=== PATIENT | female | born 1940 | race Caucasian/White ===

== ENCOUNTER 2017-01-20 10:28 | Emergency (ER) | payer MEDICARE ==
[~2017-01-20] VITALS: Ht 157.5 cm; Wt 69.0 kg
[2017-01-20] VITALS (7 sets, daily range): BP systolic 85–138; BP diastolic 56–71; PULSE 70–119; RESP 16–20; TEMP 98.2–98.9; O2SAT 93–98
[~2017-01-20 10:28] MED LIST: ASPI81CH CHEW; CLOP75TA PO; LISI-515 PO; SIMV40TA PO
[2017-01-20] MEDS ORDERED: [UNRECOGNIZED DRUG - CODE] (10:39)
--- NOTE | 2017-01-20 11:13 | PD ---
HPI Chief Complaint: Oral / Dental Pain or Problem Time Seen by Provider: 10:37 Travel History International Travel<30 days: No Contact w/Intl Traveler<30days: No Traveled to known affect area: No History of Present Illness HPI 76-year-old female presents with note of upper dental pain and swelling to her lower face after she had 5 teeth pulled on . She is to follow with her dentist on Sunday for recheck and supposed to keep her implant until then. She denies any fevers or other concurrent complaints. Her son notes that they paged her dentist but they hadn't heard back yet so they decided to come in here. She states the pain is worse if you touch the area. She denies other modifying factors. PFSH Past Medical History High Cholesterol: Yes Hypertension: Yes Past Surgical History Narrative Surgical patient notes dental surgery Social History Alcohol Use: No Tobacco Use: No Substance Use: No Allergies-Medications (Allergen,Severity, Reaction): Coded Allergies: No Known Allergies (Unverified , 01/20/17) Reported Meds & Prescriptions Reported Meds & Active Scripts Active Keflex (Cephalexin) 500 Mg Cap 500 Mg PO Q6H 7 Days Lisinopril 20 Mg Tab 20 Mg PO DAILY Simvastatin 40 Mg Tab 40 Mg PO HS Review of Systems Except as stated in HPI: all other systems reviewed are Neg Physical Exam Narrative GENERAL: Well-nourished, well-developed patient. SKIN: Warm and dry. HEAD: Patient has very small amount of swelling noted infraorbitally with old ecchymosis EYES: No injection or drainage. ENT: No nasal drainage noted. Denture noted to upper teeth the patient states she cannot remove which limits the exam NECK: Supple, trachea midline. CARDIOVASCULAR: Regular rate and rhythm RESPIRATORY: No increased effort. No accessory muscle use. NEUROLOGICAL: Awake and alert. Moves all extremities and sensory grossly within normal limits. Normal speech. Data Data Last Documented VS Vital Signs Date Time Temp Pulse Resp B/P (MAP) Pulse Ox O2 Delivery O2 Flow Rate FiO2 01/20/17 13:31 01/20/17 12:46 70 20 97 01/20/17 11:07 98.9 Room Air Orders Orders Vital Signs (01/20/17 10:51) Complete Blood Count With Diff (01/20/17 11:21) Comprehensive Metabolic Panel (01/20/17 11:21) Urinalysis - C+S If Indicated (01/20/17 11:21) Ecg Monitoring (01/20/17 11:21) Iv Access Insert/Monitor (01/20/17 11:21) Oximetry (01/20/17 11:21) Lactic Acid (01/20/17 11:21) Sodium Chlorid 0.9% 500 Ml Inj (Ns 500 M (01/20/17 11:30) Urine Culture (01/20/17 11:30) Sodium Chlor 0.9% 1000 Ml Inj (Ns 1000 M (01/20/17 12:15) Cefepime Inj (Maxipime Inj) (01/20/17 12:03) Blood Culture (01/20/17 12:08) Ed Discharge Order (01/20/17 13:19) Labs Laboratory Tests Test 01/20/17 11:30 01/20/17 11:40 Urine Collection Type CLEAN CATCH Urine Color YELLOW Urine Turbidity SLIGHT Urine pH 5.5 Urine Specific [place] 1.009 Urine Protein NEG mg/dL Urine Glucose (UA) NEG mg/dL Urine Ketones NEG mg/dL Urine Occult Blood NEG Urine Nitrite POS Urine Bilirubin NEG Urine Leukocyte Esterase MOD Urine RBC 0-3 /hpf Urine WBC 25-49 /hpf Urine WBC Clumps MOD Urine Squamous Epithelial Cells 6-8 /hpf Urine Renal Epithelial Cells 0-5 /hpf Urine Bacteria MANY /hpf Microscopic Urinalysis Comment CULTURE INDICATED Urine Collection Time 11:30 White Blood Count 11.3 TH/MM3 Red Blood Count 4.01 MIL/MM3 Hemoglobin 12.5 GM/DL Hematocrit 36.4 % Mean Corpuscular Volume 90.8 FL Mean Corpuscular Hemoglobin 31.2 PG Mean Corpuscular Hemoglobin Concent 34.4 % Red Cell Distribution Width 12.6 % Platelet Count 193 TH/MM3 Mean Platelet Volume 7.9 FL Neutrophils (%) (Auto) 73.6 % Lymphocytes (%) (Auto) 16.3 % Monocytes (%) (Auto) 8.8 % Eosinophils (%) (Auto) 0.7 % Basophils (%) (Auto) 0.6 % Neutrophils # (Auto) 8.3 TH/MM3 Lymphocytes # (Auto) 1.8 TH/MM3 Monocytes # (Auto) 1.0 TH/MM3 Eosinophils # (Auto) 0.1 TH/MM3 Basophils # (Auto) 0.1 TH/MM3 CBC Comment DIFF FINAL Differential Comment Blood Urea Nitrogen 30 MG/DL Creatinine 1.70 MG/DL Random Glucose 140 MG/DL Total Protein 7.5 GM/DL Albumin 3.8 GM/DL Calcium Level 9.1 MG/DL Alkaline Phosphatase 67 U/L Aspartate Amino Transf (AST/SGOT) 22 U/L Alanine Aminotransferase (ALT/SGPT) 14 U/L Total Bilirubin 0.8 MG/DL Sodium Level 139 MEQ/L Potassium Level 4.9 MEQ/L Chloride Level 105 MEQ/L Carbon Dioxide Level 26.1 MEQ/L Anion Gap 8 MEQ/L Estimat Glomerular Filtration Rate 29 ML/MIN Lactic Acid Level 1.3 mmol/L [facility] Medical Decision Making Medical Screen Exam Complete: Yes Emergency Medical Condition: Yes Medical Record Reviewed: Yes (past history confirmed) Interpretation(s) CBC & BMP Diagram 01/20/17 11:40 Total Protein 7.5, Albumin 3.8, Calcium Level 9.1, Alkaline Phosphatase 67, Aspartate Amino Transf (AST/SGOT) 22, Alanine Aminotransferase (ALT/SGPT) 14, Total Bilirubin 0.8 ua with uti Differential Diagnosis Postop pain, postop infection, gingivitis Narrative Course Will have nursing staff repeat vitals given she is tachycardic and her blood pressure is lower and she has no other signs of infection and exam is limited. Patient is wanting to go and try to touch base with her dentist as she doesn't want her implant removed Lengthy discussion with patient and son again as heart rate has improved but blood pressure is still low on recheck. We will check basic blood work and urinalysis to rule out concurrent process such as anemia or dehydration. Patient notes she last had her blood pressure checked on her lisinopril she thinks about last month with her primary and it was okay there. She denies any complaints other than her postop pain to her teeth and her son states she's just been acting a little bit off ever since she had the anxiety medication on . Lengthy discussion with patient and son again. Heart rate and blood pressure have improved after IV fluids. Lactate is normal. Patient has white count of 11.4 with UTI. Labs also show elevation in BUN and creatinine and son states that patient has history of renal insufficiency but does not know the number. I advised given her initial hypotension and tachycardia that she should stay in the hospital for IV fluid hydration and IV antibiotics but patient is adamant about leaving. I will provide her with cefepime IV 1 here and IV fluids and advised to return for hospitalization if she changes her mind. She understands the importance and risk involved his leaving and alternatives were offered. She is alert and oriented. Son at bedside Diagnosis Primary Impression: UTI (urinary tract infection) Qualified Codes: N39.0 - Urinary tract infection, site not specified Additional Impressions: Pain, dental Renal insufficiency Hypotension Qualified Codes: I95.9 - Hypotension, unspecified Patient Instructions: General Instructions Additional Instructions: return as needed, follow with primary and dentist sunday, hold blood pressure medication till follow up sunday, keep blood pressure log Med/Other Pt SpecificInfo: Prescription(s) given Scripts Cephalexin (Keflex) 500 Mg Cap 500 MG PO Q6H for Infection for 7 Days, #28 CAP 0 Refills Prov: Cori Celeste MD 01/20/17 Disposition: 01 DISCHARGE HOME Condition: Stable Cori Celeste MD Jan 20, 2017 11:13
[2017-01-20] MEDS ORDERED: SODIUM CHLORID 0.9% 500 ML INJ 500 ML IV ONE (11:30)
[2017-01-20 11:45] LABS: AUTOMATED NEUTROPHIL # 8.3 TH/MM3 (1.8-7.7); BASOPHIL # 0.1 TH/MM3 (0-0.2); BASOPHIL % 0.6 % (0.0-2.0); EOSINOPHIL # 0.1 TH/MM3 (0-0.4); EOSINOPHIL % 0.7 % (0.0-4.0); HEMATOCRIT 36.4 % (35.0-46.0); HEMO FLAGS DIFF FINAL; LYMPH % 16.3 % (9.0-44.0); LYMPHOCYTE # 1.8 TH/MM3 (1.0-4.8); MEAN CELL VOLUME 90.8 FL (80.0-100.0); MEAN CORPUSCULAR HEMOGLOBIN 31.2 PG (27.0-34.0); MEAN CORPUSCULAR HGB CONC 34.4 % (32.0-36.0); MONO % 8.8 % (0.0-8.0); NEUT % 73.6 % (16.0-70.0); PLATELET COUNT 193 TH/MM3 (150-450); RED BLOOD COUNT 4.01 MIL/MM3 (4.00-5.30); RED CELL DISTRIBUTION WIDTH 12.6 % (11.6-17.2); WHITE BLOOD COUNT 11.3 TH/MM3 (4.0-11.0)
[2017-01-20 11:46] LABS: BLOOD, URINE NEG (NEG); GLUCOSE,URINE NEG (NEG); KETONE, URINE NEG (NEG); NITRITE,URINE POS (NEG); PH, URINE 5.5 (5.0-8.5)
[2017-01-20 11:51] LABS: METHOD OF COLLECTION CLEAN CATCH; URINE COLOR YELLOW (YELLW/STRAW)
[2017-01-20 11:52] LABS: BACTERIA, URINE MANY /hpf; RBC, URINE 0-3 /hpf (0-3); RENAL EPITHELIAL CELLS 0-5 /hpf
[2017-01-20 11:53] LABS: COMMENT (UR) CULTURE INDICATED; CULTURE IF INDICATED CULTURE INDICATED
[2017-01-20 11:54] LABS: CHLORIDE 105 MEQ/L (98-107); POTASSIUM 4.9 MEQ/L (3.5-5.1); SODIUM (NA) 139 MEQ/L (136-145)
[2017-01-20 11:58] LABS: ANION GAP 8 MEQ/L (5-15); BICARBONATE 26.1 MEQ/L (21.0-32.0); BLOOD UREA NITROGEN 30 MG/DL (7-18)
[2017-01-20 12:01] LABS: ALT (GPT) 14 U/L (10-53); AST (GOT) 22 U/L (15-37); GLOMERULAR FILTRATION RATE 29 ML/MIN (>89)
[2017-01-20 12:02] LABS: TOTAL BILIRUBIN ADULT 0.8 MG/DL (0.2-1.0)
[2017-01-20] MEDS ORDERED: CEFEPIME INJ 2,000 MG in SODIUM CHLORIDE 0.9% INJ 100 ML IV STA (12:03)
[2017-01-20 12:04] LABS: ALKALINE PHOSPHATASE 67 U/L (45-117)
[2017-01-20] MEDS ORDERED: SODIUM CHLOR 0.9% 1000 ML INJ 1,000 ML IV ONE (12:15)
[2017-01-20] MEDS ORDERED: CEPH-460 PO (12:54)
[2017-01-29] MEDS ORDERED: LISI-515 PO (11:30)
[2017-01-29] MEDS ORDERED: ALEN1TAB48 PO (13:20)
[2017-01-29] MEDS ORDERED: PNEU13P IM (13:24)
[2017-01-30] MEDS ORDERED: SIMV40TA PO ×2 (11:38→11:39)
== END 2017-01-20 13:32 | disposition home or self-care (01) ==
LOC: PHEFT 10:28
DX: N39.0 Urinary tract infection, site not specified (principal); K08.89 Other specified disorders of teeth and supporting structures; N28.9 Disorder of kidney and ureter, unspecified; I95.9 Hypotension, unspecified; B96.20 Unspecified Escherichia coli [E. coli] as the cause of diseases classified elsewhere; R00.0 Tachycardia, unspecified; R22.0 Localized swelling, mass and lump, head; I10 Essential (primary) hypertension; E78.00 Pure hypercholesterolemia, unspecified; Z98.890 Other specified postprocedural states
CPT/HCPCS: 80053; 81001; 83605; 85025; 87040; 87077; 87086; 87186; 96361; 96365; 99284; J0692; J7030; J7040

== ENCOUNTER 2017-06-15 05:09 | Inpatient (IN) | payer MEDICARE ==
[2017-06-15] VITALS (22 sets, daily range): BP systolic 83–221; BP diastolic 66–120; PULSE 93–137; RESP 14–20; TEMP 97.8–98.7; O2SAT 90–100
[~2017-06-15] VITALS: Ht 160 cm; Wt 78.8 kg
[~2017-06-15 05:09] MED LIST changes: +ALEN1TAB48 PO; -ASPI81CH CHEW; +ASPI81CH6 CHEW; -CLOP75TA PO; -LISI-515 PO
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
[2017-06-15 05:35] LABS: AUTOMATED NEUTROPHIL # 12.5 TH/MM3 (1.8-7.7); BASOPHIL # 0.3 TH/MM3 (0-0.2); BASOPHIL % 2.1 % (0.0-2.0); HEMATOCRIT 44.2 % (35.0-46.0); HEMOGLOBIN 14.7 GM/DL (11.6-15.3); LYMPH % 9.9 % (9.0-44.0); LYMPHOCYTE # 1.5 TH/MM3 (1.0-4.8); MEAN CELL VOLUME 89.2 FL (80.0-100.0); MEAN CORPUSCULAR HEMOGLOBIN 29.6 PG (27.0-34.0); MEAN CORPUSCULAR HGB CONC 33.2 % (32.0-36.0); MEAN PLATELET VOLUME 8.2 FL (7.0-11.0); MONO % 8.4 % (0.0-8.0); MONOCYTE # 1.3 TH/MM3 (0-0.9); NEUT % 79.6 % (16.0-70.0); PLATELET COUNT 251 TH/MM3 (150-450); RED BLOOD COUNT 4.95 MIL/MM3 (4.00-5.30); RED CELL DISTRIBUTION WIDTH 12.1 % (11.6-17.2); WHITE BLOOD COUNT 15.6 TH/MM3 (4.0-11.0)
[2017-06-15 05:44] LABS: CHLORIDE 103 MEQ/L (98-107); SODIUM (NA) 137 MEQ/L (136-145)
[2017-06-15 05:45] LABS: BILIRUBIN, URINE NEG (NEG); BLOOD, URINE MOD (NEG); GLUCOSE,URINE NEG (NEG); KETONE, URINE 15 mg/dL (NEG); NITRITE,URINE NEG (NEG); URINE COLOR YELLOW (YELLW/STRAW); URINE LEUKOCYTE ESTERASE NEG (NEG)
[2017-06-15 05:47] LABS: CALCIUM 8.9 MG/DL (8.5-10.1)
[2017-06-15 05:48] LABS: ALBUMIN 3.6 GM/DL (3.4-5.0); BLOOD UREA NITROGEN 47 MG/DL (7-18); GLUCOSE,RANDOM 148 MG/DL (74-106)
[2017-06-15 05:51] LABS: ALT (GPT) 17 U/L (10-53); AST (GOT) 59 U/L (15-37); GLOMERULAR FILTRATION RATE 53 ML/MIN (>89)
[2017-06-15 05:52] LABS: HYALINE CAST, URINE 0-2 /lpf (RARE); WBC, URINE 0-2 /hpf (0-5)
[2017-06-15 05:52] LABS: TOTAL BILIRUBIN ADULT 1.2 MG/DL (0.2-1.0); TOTAL PROTEIN 7.9 GM/DL (6.4-8.2)
[2017-06-15 05:53] LABS: AMORPHOUS SEDIMENT, URINE FEW
[2017-06-15 05:53] LABS: LACTIC ACID SEPSIS PROTOCOL 2.4 mmol/L (0.4-2.0)
[2017-06-15 05:54] LABS: ALKALINE PHOSPHATASE 80 U/L (45-117); PROTHROMBIN TIME - PATIENT 10.5 SEC (9.8-11.6)
[2017-06-15 05:56] LABS: TROPONIN I LESS THAN 0.02 NG/ML (0.02-0.05)
[2017-06-15] MEDS ORDERED: SODIUM CHLORID 0.9% 500 ML INJ 500 ML IV ONE (06:00)
[2017-06-15 06:02] LABS: HYPERSEGMENTED POLYS 1+ (NORMAL)
[2017-06-15] MEDS: niCARdipine INJ 25 MG in SODIUM CHLOR 0.9% 250 ML INJ 240 ML IV PRN (06:15)
[2017-06-15] MEDS: SODIUM CHLOR 0.9% 1000 ML INJ 1,000 ML IV SCH (06:17)
--- NOTE | 2017-06-15 06:27 | HHI.HP ---
[facility] Service Critical Care Medicine Primary Care Physician Sandi John MD Admission Diagnosis Parenchymal Brain Hemorrhage Diagnosis: (1) Hemorrhagic stroke Diagnosis: Principal (2) Respiratory failure (3) Hypertensive urgency Diagnosis: Principal (4) Encephalopathy, metabolic Diagnosis: Principal (5) CLAYTON (acute kidney injury) Diagnosis: Secondary Chief Complaint: Confused. Back pain. Travel History International Travel<30 Days: No Contact w/Intl Traveler <30 Da: No Traveled to Known Affected Are: No History of Present Illness Severely dehydrated, elderly woman presents confused to [facility] ED with hypertensive urgency and semi-acute right hemispheric parenchymal brain hemorrhage. Arrived from [facility] on cardene gtt and aphasic. Handness not determined yet. Unable to get ROS. No anticoagulants. INR normal. Past Family Social History Allergies: Coded Allergies: No Known Allergies (Unverified Adverse Reaction, Unknown, 06/15/17) Past Medical History Past Medical History High Cholesterol: Yes Hypertension: Yes Social History Alcohol Use: No Tobacco Use: No Substance Use: No Allergies-Medications Allergies-Medications (Allergen,Severity, Reaction): Coded Allergies: No Known Allergies (Unverified Adverse Reaction, Unknown, 02/26/17) Reported Meds & Prescriptions Reported Meds & Active Scripts Active Simvastatin 40 Mg Tab 40 Mg PO HS Alendronate (Alendronate Sodium) 70 Mg Tab 70 Mg PO Q7D Reported Aspirin Low Dose (Aspirin) 81 Mg Chew 81 Mg CHEW DAILY Physical Exam Vital Signs Vital Signs Date Time Temp Pulse Resp B/P (MAP) Pulse Ox O2 Delivery O2 Flow Rate FiO2 06/15/17 05:35 98.7 94 20 210/116 (147) 98 Nasal Cannula 2.00 Physical Exam Gen: Aphasic. Head: Atraumatic, normal. Neck: Supple, airway widely patent. Lungs: Clear, no adventitious sounds. Heart: Sinus 90s. No JVD. RRR. Abdomen: Soft, nontender, no guarding. BS active. Extremities: Warm, well perfused. Neuro: Pupils 3 mm, reactive. Tracks with eyes, focuses. Aphasia (apparently was talking earlier). Moves right arm and leg to stimulation. Moves left leg weakly. Weak left arm. Laboratory Laboratory Tests Test 06/15/17 05:20 06/15/17 05:35 White Blood Count 15.6 Red Blood Count 4.95 Hemoglobin 14.7 Hematocrit 44.2 Mean Corpuscular Volume 89.2 Mean Corpuscular Hemoglobin 29.6 Mean Corpuscular Hemoglobin Concent 33.2 Red Cell Distribution Width 12.1 Platelet Count 251 Mean Platelet Volume 8.2 Neutrophils (%) (Auto) 79.6 Lymphocytes (%) (Auto) 9.9 Monocytes (%) (Auto) 8.4 Eosinophils (%) (Auto) 0.0 Basophils (%) (Auto) 2.1 Neutrophils # (Auto) 12.5 Lymphocytes # (Auto) 1.5 Monocytes # (Auto) 1.3 Eosinophils # (Auto) 0.0 Basophils # (Auto) 0.3 CBC Comment AUTO DIFF Hypersegmented Polys 1+ Platelet Estimate NORMAL Platelet Morphology Comment NORMAL Red Cell Morphology Comment NORMAL Blood Urea Nitrogen 47 Random Glucose 148 Albumin 3.6 Calcium Level 8.9 Sodium Level 137 Potassium Level 3.8 Chloride Level 103 Carbon Dioxide Level 25.0 Anion Gap 9 Lactic Acid Level 2.4 Ammonia LESS THAN 10 Urine Color YELLOW Urine Turbidity CLEAR Urine pH 6.0 Urine Specific [place] GREATER/EQUAL 1.030 Urine Protein 300 OR GREATER Urine Glucose (UA) NEG Urine Ketones 15 Urine Occult Blood MOD Urine Nitrite NEG Urine Bilirubin NEG Urine Urobilinogen 1.0 Urine Leukocyte Esterase NEG Urine RBC 3-5 Urine WBC 0-2 Urine Squamous Epithelial Cells 6-8 Urine Amorphous Sediment FEW Urine Bacteria NONE Urine Hyaline Casts 0-2 Urine Fine Granular Casts 0-2 Microscopic Urinalysis Comment CATH-CULT NOT IND Urine Barbiturates Screen NEG Urine Amphetamines Screen NEG Urine Benzodiazepines Screen NEG Urine Cocaine Screen NEG Urine Cannabinoids Screen NEG Date/Time Source Procedure Growth Status 06/15/17 05:26 Blood Peripheral Aerobic Blood Culture Pending Received 06/15/17 05:26 Blood Peripheral Anaerobic Blood Culture Pending Received Result Diagram: 06/15/17 0520 06/15/17 0520 Caprini VTE Risk Assessment Caprini VTE Risk Assessment: Mod/High Risk (score >= 2) Caprini Risk Assessment Model Point Value = 1 Point Value = 2 Point Value = 3 Point Value = 5 Age 41-60 Minor surgery BMI > 25 kg/m2 Swollen legs Varicose veins or History of unexplained or recurrent spontaneous Oral contraceptives or hormone replacement Sepsis (< 1 month) Serious lung disease, including pneumonia (< 1 month) Abnormal pulmonary function Acute myocardial infarction Congestive heart failure (< 1 month) History of inflammatory bowel disease Medical patient at bed rest Age 61-74 Arthroscopic surgery Major open surgery (> 45 min) Laparoscopic surgery (> 45 min) Malignancy Confined to bed (> 72 hours) Immobilizing plaster cast Central venous access Age >= 75 History of VTE Family history of VTE Factor V Leiden Prothrombin [id number] Lupus anticoagulant Anticardiolipin antibodies Elevated serum homocysteine Heparin-induced thrombocytopenia Other congenital or acquired thrombophilia Stroke (< 1 month) Elective arthroplasty Hip, pelvis, or leg fracture Acute spinal cord injury (< 1 month) Prophylaxis Regimen Total Risk Factor Score Risk Level Prophylaxis Regimen 0-1 Low Early ambulation 2 Moderate Order ONE of the following: *Sequential Compression Device (SCD) *Heparin 5000 units SQ BID 3-4 Higher Order ONE of the following medications: *Heparin 5000 units SQ TID *Enoxaparin/Lovenox 40 mg SQ daily (WT < 150 kg, CrCl > 30 mL/min) *Enoxaparin/Lovenox 30 mg SQ daily (WT < 150 kg, CrCl > 10-29 mL/min) *Enoxaparin/Lovenox 30 mg SQ BID (WT < 150 kg, CrCl > 30 mL/min) AND/OR *Sequential Compression Device (SCD) 5 or more Highest Order ONE of the following medications: *Heparin 5000 units SQ TID (Preferred with Epidurals) *Enoxaparin/Lovenox 40 mg SQ daily (WT < 150 kg, CrCl > 30 mL/min) *Enoxaparin/Lovenox 30 mg SQ daily (WT < 150 kg, CrCl > 10-29 mL/min) *Enoxaparin/Lovenox 30 mg SQ BID (WT < 150 kg, CrCl > 30 mL/min) AND *Sequential Compression Device (SCD) Assessment and Plan Problem List: (1) Hemorrhagic stroke ICD Code: I61.9 - Nontraumatic intracerebral hemorrhage, unspecified Status: Acute (2) Hypertensive urgency ICD Code: I16.0 - Hypertensive urgency Status: Acute (3) Encephalopathy, metabolic ICD Code: G93.41 - Metabolic encephalopathy Status: Acute (4) CLAYTON (acute kidney injury) ICD Code: N17.9 - Acute kidney failure, unspecified Status: Acute Assessment and Plan Plan: 1. Neuro checks. 2. Maintenance iv fluid, isotonic. 3. Cardene gtt to keep SBP < 160. 4. Swallow evaluation. 5. Pepcid. 6. No chemical DVT px. 7. SCDs. 8. MRI brain. Overall impression: Patient is critically ill with acute brain hemorrhage complicated by dehydration, rhabdomyolysis, and kidney injury. Hypertensive urgency persists. She is deteriorating rapidly and will soon require intubation and mechanical ventilation. Critical care 39 mins aside from procedures Problem Qualifiers (1) Respiratory failure: Qualified Codes: J96.00 - Acute respiratory failure, unspecified whether with hypoxia or hypercapnia Ulisses Gunter MD Jun 15, 2017 06:27
--- NOTE | 2017-06-15 06:28 | RADRPT ---
EXAM DATE/TIME: 06/15/2017 05:59 [facility] COMPARISON: No previous studies available for comparison. INDICATIONS : Altered mental status. RADIATION DOSE: 57.94 CTDIvol (mGy) MEDICAL HISTORY : Hypertension. SURGICAL HISTORY : None. ENCOUNTER: Initial ACUITY: 1 day PAIN SCALE: 0/10 LOCATION: cranial TECHNIQUE: Multiple contiguous axial images were obtained of the head. Using automated exposure control and adj ustment of the mA and/or kV according to patient size, radiation dose was kept as low as reasonably a chievable to obtain optimal diagnostic quality images. DICOM format image data is available electro nically for review and comparison. FINDINGS: CEREBRUM: 2.6 cm parenchymal hemorrhage in the posterior right temporal lobe with intra-ventricular extension. Large amount of blood in the ipsilateral right ventricle with small amount of dependent blood in the occipital horn of the left lateral ventricle. There appears to be a small subarachnoid component in t he parietal convexities bilaterally. Ventricles are prominent. Periventricular diminished attenuation characteristic of moderately severe small vessel ischemic demyelination. POSTERIOR FOSSA: The cerebellum and brainstem are intact. The 4th ventricle is midline. The cerebellopontine angle i s unremarkable. EXTRACRANIAL: The visualized portion of the orbits is intact. SKULL: The calvaria is intact. No evidence of skull fracture. CONCLUSION: 1. 2.6 cm parenchymal hemorrhage in the posterior right temporal lobe with intraventricular extension . 2. There appears to be a small subarachnoid component over both parietal convexities. 3. Ventricular prominence with periventricular diminished attenuation characteristic of moderately se macarena small vessel ischemic demyelination. No midline shift Ariel Frederick MD on June 15, 2017 at 6:22 Board Certified Radiologist. This report was verified electronically.
[2017-06-15] MEDS ORDERED: CHLORHEXIDINE GLUCONATE 2 % 1 PACK (2 CLOTHS) TOP PRN (06:30)
[2017-06-15] MEDS ORDERED: RESP: ALBUTEROL 2.5 MG/IPRATROPIUM 0.5 MG NEB (PRN) INH (06:30)
[2017-06-15] MEDS ORDERED: ONDANSETRON HCL 4 MG/2 ML VIAL IV PUSH PRN (06:30)
[2017-06-15] MEDS ORDERED: SENNOSIDES 8.6 MG TAB PO PRN (06:30)
[2017-06-15] MEDS ORDERED: BISACODYL 10 MG SUPP RECTAL PRN (06:30)
[2017-06-15] MEDS ORDERED: MISCELLANEOUS NURSING INFORMATION XX SCH (06:30)
[2017-06-15] MEDS ORDERED: levETIRAcetam INJ 100 ML IV ONE (06:30)
[2017-06-15] MEDS ORDERED: MAGNESIUM HYDROXIDE SUSP 30 ML CUP PO PRN (06:30)
--- NOTE | 2017-06-15 06:39 | RADRPT ---
EXAM DATE/TIME: 06/15/2017 06:15 [facility] COMPARISON: No previous studies available for comparison. INDICATIONS : Syncopal episode today MEDICAL HISTORY : Hypertension. SURGICAL HISTORY : None. ENCOUNTER: Initial ACUITY: 1 day PAIN SCORE: Non-responsive. LOCATION: Bilateral chest FINDINGS: A single view of the chest demonstrates the lungs to be symmetrically aerated with some linear specia l changes in the left perihilar distribution possibly representing some regional scarring/fibrosis. T he upper mediastinum is widened apparently due to some uncoiling of the thoracic aorta. Trachea remai ns midline. Heart size is borderline normal compensated. Osseous structures are intact. CONCLUSION: 1. Minimal left perihilar scarring/fibrosis. Lungs are otherwise clear. 2. Fullness of the upper mediastinum I believe is due to some uncoiling of the thoracic aorta. Trache a remains midline. 3. Borderline prominent but well compensated heart. Ariel Frederick MD on June 15, 2017 at 6:34 Board Certified Radiologist. This report was verified electronically.
[2017-06-15 07:18] LABS: ACETAMINOPHEN LESS THAN 2.0 MCG/ML (10.0-30.0)
[2017-06-15] MEDS: DOCUSATE SODIUM 50 MG/SENNA 8.6 MG TAB PO SCH ×2 (08:45→20:59)
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
[2017-06-15] MEDS: FAMOTIDINE 20 MG/2 ML VIAL IV PUSH SCH ×2 (09:43→20:59)
--- NOTE | 2017-06-15 13:38 | RADRPT ---
EXAM DATE/TIME: 06/15/2017 11:52 [facility] COMPARISON: CT BRAIN W/O CONTRAST, June 15, 2017, 5:59. INDICATIONS : Subarachnoid hemorrhage. MEDICAL HISTORY : Hypertension. CVA. SURGICAL HISTORY : None. ENCOUNTER: Initial ACUITY: 4-6 days PAIN SCORE: 0/10 LOCATION: cranial TECHNIQUE: Multiplanar, multisequence MRI of the brain was performed without contrast. FINDINGS: There is a large area of hemorrhage in the posterior right temporal lobe measuring up to about 6.2 x 3.6 cm. There is some rupture into ventricular system with hemorrhage in the posterior aspect of both lateral ventricles. On diffusion weighted images there is a rim of increased signal around the hemor rhage both parenchymal and intraventricular hemorrhage. Ventricular size is mildly enlarged and there is moderate chronic ischemic change in periventricular white matter. No contrast was given. Findings probably represents a large hemorrhagic infarct. CONCLUSION: 1. Large hemorrhage in the right posterior temporal lobe with rupture into the ventricular system and mild ventricular enlargement. Findings most characteristic of a hemorrhagic infarct. On followup exa m would recommend contrast to exclude an enhancing underlying lesion. 2. Moderate chronic ischemic changes in periventricular white matter. No significant midline shift. Ivan Bahena MD on June 15, 2017 at 13:29 Board Certified Radiologist. This report was verified electronically.
[2017-06-15] MEDS ORDERED: PROPOFOL 1000 MG/100 ML INJ 100 ML IV PRN (14:00)
[2017-06-15] MEDS ORDERED: ROCURONIUM INJ 100 MG/10 ML VIAL IV ONE (14:00)
[2017-06-15] MEDS ORDERED: MIDAZOLAM HCL 5 MG/5 ML VIAL IV PUSH ONE (14:00)
[2017-06-15] MEDS ORDERED: ROCURONIUM INJ 50 MG/5 ML VIAL ONE (14:07)
[2017-06-15] MEDS ORDERED: MIDAZOLAM HCL 5 MG/ML VIAL (1 ML) ONE (14:07)
--- NOTE | 2017-06-15 14:31 | PD.PROCEDR ---
Procedure Note Procedure DX: Respiratory Failure (J96.00) OP: Orotracheal Intubation (49728) Procedure: Time out. Bag mask assisted ventilation after versed 2.5 mg iv. Rocuronium 100 mg iv. Intubated orally with 8.0 cuffed tube. Position confirmed with CO2 detection, breath sounds, sats 100%. CXR ordered, will review. Ulisses Gunter MD Jun 15, 2017 14:31
--- NOTE | 2017-06-15 14:36 | EKG ---
Date Performed: 06/15/2017 Time Performed: 06:27:58 PTAGE: 77 years EKG: SUPRAVENTRICULAR RHYTHM MARKED LEFT AXIS DEVIATION NONSPECIFIC ST & T-WAVE ABNORMALITY ABNO RMAL ECG NO PREVIOUS TRACING Clinical correlation is recommended. DOCTOR: Jame Anna Interpretating Date/Time 06/15/2017 14:36:10
--- NOTE | 2017-06-15 14:42 | RADRPT ---
EXAM DATE/TIME: 06/15/2017 11:52 [facility] COMPARISON: No previous studies available for comparison. INDICATIONS : Altered mental status. Abnormal CT. MEDICAL HISTORY : CVA. SURGICAL HISTORY : None. ENCOUNTER: Initial ACUITY: 4-6 days PAIN SCORE: 0/10 LOCATION: cranial Please note a normal MRA of the brain does not entirely exclude the possibility of a small aneurysm, nor the possibility of distal intracranial vessel disease. TECHNIQUE: 3D time of flight MRA was performed. Source images, multiplanar STS MIP, and 3D volume MIP reconstru ctions were reviewed. FINDINGS: There is excellent visualization of the major intracranial arteries out to the second-order branch ve ssels. There is no evidence for aneurysm, vessel truncation or stenosis, and no evidence for vascula r malformation. CONCLUSION: MRA within normal limits. There is a parenchymal hemorrhage in the posterior right te mporal lobe with intraventricular extension. Ivan Bahena MD on June 15, 2017 at 14:38 Board Certified Radiologist. This report was verified electronically.
[2017-06-15] MEDS ORDERED: PROPOFOL 1000 MG/100 ML IV PRN (14:45)
[2017-06-15] MEDS ORDERED: RASS Change Order XX ONE (14:45)
--- NOTE | 2017-06-15 15:21 | PD.CONS ---
History of Present Illness Service Neurology Consult Requested By nsx Reason for Consult ich, weakness Primary Care Physician Sandi John MD History of Present Illness 77 [place] [facility] [place] bp 210[place]116 in [place]. found to have right hemispheric parenchymal brain hemorrhage. seen by nsx. placed on cardene gtt for bp control. No anticoagulants. INR normal. pt went down to mri today. upon coming back she became more lethargic. she was intubated. had versed 5mg, started on propofol gtt. had hypotension, started on pressor. then had ventric placed for icp monitoring. Unable to get ROS. medical hx per chart. Past Family Social History Allergies: Coded Allergies: No Known Allergies (Unverified Adverse Reaction, Unknown, 06/15/17) Past Medical History Past Medical History High Cholesterol: Yes Hypertension: Yes Social History Alcohol Use: No Tobacco Use: No Substance Use: No Allergies-Medications Allergies-Medications (Allergen,Severity, Reaction): Coded Allergies: No Known Allergies (Unverified Adverse Reaction, Unknown, 02/26/17) Reported Meds & Prescriptions Reported Meds & Active Scripts Active Simvastatin 40 Mg Tab 40 Mg PO HS Alendronate (Alendronate Sodium) 70 Mg Tab 70 Mg PO Q7D Reported Aspirin Low Dose (Aspirin) 81 Mg Chew 81 Mg CHEW DAILY Review of Systems All other ROS: Unable to obtain Past Family Social History Allergies: Coded Allergies: No Known Allergies (Unverified Adverse Reaction, Unknown, 06/15/17) Active Ordered Medications Current Medications Medications (Trade) Dose Ordered Sig/Jose Guadalupe Route Start Time Stop Time Status Last Admin (NS Flush) 2 ml UNSCH PRN IV FLUSH 06/15/17 05:15 Nicardipine HCl 25 mg/Sodium Chloride 250 ml @ 50 mls/hr TITRATE PRN IV 06/15/17 06:15 06/15/17 06:15 (Pravachol) 80 mg HS PO 06/15/17 21:00 Sodium Chloride 1,000 ml @ 40 mls/hr Q24H IV 06/15/17 06:17 (Tylenol) 650 mg Q6H PRN PO 06/15/17 06:30 (Morphine Inj) 2 mg Q2H PRN IV PUSH 06/15/17 06:30 (Pepcid Inj) 10 mg Q12HR IV PUSH 06/15/17 09:00 06/15/17 09:43 (Zofran Inj) 4 mg Q6H PRN IV PUSH 06/15/17 06:30 (Duoneb Neb) 1 ampule Q4HR NEB PRN INH 06/15/17 06:30 Miscellaneous Information 1 Q361D XX 06/15/17 06:30 (Chlorhexidine 2% Cloth) 3 pack Taper DAILY@04 TOP 06/16/17 04:00 06/12/18 03:59 (Chlorhexidine 2% Cloth) 3 pack UNSCH PRN TOP 06/15/17 06:30 (Fallon-Colace) 1 tab BID PO 06/15/17 09:00 (Milk Of Magnesia Liq) 30 ml Q12H PRN PO 06/15/17 06:30 (Senokot) 17.2 mg Q12H PRN PO 06/15/17 06:30 (Dulcolax Supp) 10 mg DAILY PRN RECTAL 06/15/17 06:30 (Lactulose Liq) 30 ml DAILY PRN PO 06/15/17 06:30 (Peridex 0.12% Liq) 15 ml BID@08,20 MT 06/15/17 20:00 Propofol 100 ml @ 1.941 mls/ hr TITRATE PRN IV 06/15/17 14:45 06/15/17 14:41 Exam I&O / VS 06/15/17 06/15/17 06/16/17 15:00 23:00 07:00 Intake Total 100 ml Output Total 750 ml Balance -650 ml Intake IV Total 100 ml Output Urine Total 750 ml Vital Signs Date Time Temp Pulse Resp B/P (MAP) Pulse Ox O2 Delivery O2 Flow Rate FiO2 06/15/17 12:00 101 06/15/17 12:00 97.9 101 20 149/98 (115) 96 06/15/17 10:00 106 06/15/17 08:00 101 06/15/17 08:00 97.9 101 20 128/69 (88) 97 06/15/17 06:52 98 16 174/102 (126) 98 Nasal Cannula 2.00 06/15/17 06:42 102 16 162/103 (122) 98 Nasal Cannula 2.00 06/15/17 06:39 101 16 162/103 (122) Nasal Cannula 2.00 06/15/17 06:35 100 16 102/73 (83) 98 06/15/17 06:32 98 83/71 (75) 98 06/15/17 06:30 98 Nasal Cannula 2.00 06/15/17 06:15 94 16 168/107 (127) 99 Nasal Cannula 2.00 06/15/17 06:15 168 06/15/17 05:45 93 16 200/118 (145) 06/15/17 05:35 98.7 94 20 210/116 (147) 98 Nasal Cannula 2.00 06/15/17 05:15 93 16 221/120 (153) 98 Nasal Cannula 2.00 06/15/17 05:15 94 16 93 06/15/17 05:11 98.7 98 16 210/116 (147) 93 Exam Comments intubated, on propofol gtt, had recent versed dose, no gaze deviation, ou 3mm sluggish, no blink to threat, face sym, limited ext movement, Review/Management Diagnosis/Plan: (1) Intracranial hemorrhage ICD Codes: I62.9 - Nontraumatic intracranial hemorrhage, unspecified Status: Acute Plan: rt o-p ich large spontaneous, likely hypertensive limited current exam due to events over the past few hours mra brain- nml mri brain images reviewed will follow with you (2) Encephalopathy, metabolic ICD Codes: G93.41 - Metabolic encephalopathy Status: Acute Plan: due to ich (3) Hypertensive emergency ICD Codes: I16.1 - Hypertensive emergency Status: Acute (4) CLAYTON (acute kidney injury) ICD Codes: N17.9 - Acute kidney failure, unspecified Status: Acute Jose Cruz Crowell MD Jun 15, 2017 15:21
--- NOTE | 2017-06-15 17:03 | PD.OP ---
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 CT and MRI show a hemorrhagic infarction with intraventricular hemorrhage and hydrocephalus. Her condition was getting progressively worse. Placement of a venriculostomy catheter was indicated as recommended by the [employer] [place] [employer] The [id number] details of the procedure, its indications, alternatives, risks and potential complications were fully discussed with the patients family. She fully understood. All questions were answered. No guarantees were given. The patient voiced requesting the procedure and provided informed consents. The patient familywas offered the alternative of not having aggressive management. DETAILS OF THE SURGICAL PROCEDURE The frontal area was shaved, prepped and draped in the usual sterile fashion. An entry point was selected 90 millimeters posterior to the supraorbital rim and 25 millimeters from the midline. The area was infiltrated with 1% lidocaine with epinephrine. A skin incision was made with a #15 blade down to the level of the periosteum. Using a twist drill, a kan hole was made. The dura was carefully opened with a brain needle and a ventriculostomy catheter was advanced into the ventricular system. At a depth of 60 millimeters, cerebrospinal fluid was obtained. Opening pressure was greater than 20 centimeters of water. A specimen of cerebrospinal fluid was collected and sent to the lab for analysis of the glucose, protein, cell count and cultures. The catheter was then tunneled under the galea and externalized through a separate stab incision. The incision was closed with 3-0 nylon in a single plane. The patient tolerated the procedure well. COMPLICATIONS There were no intraoperative complications. BLOOD LOSS Blood loss was minimal. Andre Nixon MD Jun 15, 2017 17:03
--- NOTE | 2017-06-15 18:38 | RADRPT ---
EXAM DATE/TIME: 06/15/2017 17:58 [facility] COMPARISON: CHEST SINGLE AP, June 15, 2017, 6:15. INDICATIONS : ET tube placement. MEDICAL HISTORY : None. SURGICAL HISTORY : None. ENCOUNTER: Initial ACUITY: 2 days PAIN SCORE: Non-responsive. LOCATION: Bilateral chest FINDINGS: Endotracheal tube tip is at or slightly below the [place]. There is complete consolidation of the left lung, new. Right lung remains clear. There is a new nasogastric tube, coiled in the stomach. CONCLUSION: Endotracheal tube tip slightly below the [place] in the right mainstem bronchus. Completely consolidat ed left lung. Harsha Ayala MD on June 15, 2017 at 18:34 Board Certified Radiologist. This report was verified electronically.
[2017-06-15] MEDS ORDERED: NOREPINEPHRINE INJ 4 MG in SODIUM CHLOR 0.9% 250 ML INJ 246 ML IV PRN ×2 (19:45→21:45)
[2017-06-15] MEDS: CHLORHEXIDINE 0.12% (ORAL KIT) 15 ML CUP MT SCH (20:57)
[2017-06-15] MEDS: PRAVASTATIN SOD 80 MG TAB PO SCH (20:59)
[2017-06-16] VITALS (16 sets, daily range): BP systolic 119–174; BP diastolic 69–95; PULSE 67–102; RESP 14–18; TEMP 98.2–101; O2SAT 97–100
[2017-06-16] MEDS: SODIUM CHLOR 0.9% 1000 ML INJ 1,000 ML IV SCH ×3 (02:15→22:22)
[2017-06-16] MEDS: CHLORHEXIDINE GLUCONATE 2 % 1 PACK (2 CLOTHS) TOP SCH (04:00)
[2017-06-16 04:51] LABS: AUTOMATED NEUTROPHIL # 13.4 TH/MM3 (1.8-7.7); BASOPHIL % 0.2 % (0.0-2.0); HEMOGLOBIN 13.7 GM/DL (11.6-15.3); LYMPH % 13.2 % (9.0-44.0); LYMPHOCYTE # 2.4 TH/MM3 (1.0-4.8); MEAN CELL VOLUME 89.3 FL (80.0-100.0); MEAN CORPUSCULAR HEMOGLOBIN 30.7 PG (27.0-34.0); MEAN CORPUSCULAR HGB CONC 34.4 % (32.0-36.0); MEAN PLATELET VOLUME 8.3 FL (7.0-11.0); MONO % 11.3 % (0.0-8.0); NEUT % 75.3 % (16.0-70.0); PLATELET COUNT 185 TH/MM3 (150-450); RED BLOOD COUNT 4.48 MIL/MM3 (4.00-5.30); RED CELL DISTRIBUTION WIDTH 13.1 % (11.6-17.2); WHITE BLOOD COUNT 17.8 TH/MM3 (4.0-11.0)
[2017-06-16 05:20] LABS: BICARBONATE 23.9 MEQ/L (21.0-32.0); CREATININE 1.1 MG/DL (0.50-1.00); MAGNESIUM 2.3 MG/DL (1.5-2.5); PHOSPHORUS 1.8 MG/DL (2.5-4.9)
[2017-06-16] MEDS: FAMOTIDINE 20 MG/2 ML VIAL IV PUSH SCH ×2 (09:39→23:40)
[2017-06-16] MEDS: DOCUSATE SODIUM 50 MG/SENNA 8.6 MG TAB PO SCH ×2 (09:39→23:40)
[2017-06-16] MEDS: CHLORHEXIDINE 0.12% (ORAL KIT) 15 ML CUP MT SCH ×2 (09:42→22:22)
--- NOTE | 2017-06-16 10:15 | HHI.PR ---
Review/Management Diagnosis/Plan: (1) Intracranial hemorrhage ICD Codes: I62.9 - Nontraumatic intracranial hemorrhage, unspecified Status: Acute Plan: rt o-p ich large spontaneous, likely hypertensive limited current exam due to events over the past few hours mra brain- nml mri brain images reviewed recs neuro exam improved extubate per ccm/nsx (2) Encephalopathy, metabolic ICD Codes: G93.41 - Metabolic encephalopathy Status: Acute Plan: due to ich (3) Hypertensive emergency ICD Codes: I16.1 - Hypertensive emergency Status: Acute Plan: improved on bp meds (4) CLAYTON (acute kidney injury) ICD Codes: N17.9 - Acute kidney failure, unspecified Status: Acute Subjective Subjective Comments No acute events reported icp 4-6 Active Medications Current Medications Medications (Trade) Dose Ordered Sig/Jose Guadalupe Route Start Time Stop Time Status Last Admin (NS Flush) 2 ml UNSCH PRN IV FLUSH 06/15/17 05:15 Nicardipine HCl 25 mg/Sodium Chloride 250 ml @ 50 mls/hr TITRATE PRN IV 06/15/17 06:15 06/15/17 06:15 (Pravachol) 80 mg HS PO 06/15/17 21:00 06/15/17 20:59 Sodium Chloride 1,000 ml @ 100 mls/hr Q10H IV 06/15/17 06:17 06/16/17 02:15 (Tylenol) 650 mg Q6H PRN PO 06/15/17 06:30 (Morphine Inj) 2 mg Q2H PRN IV PUSH 06/15/17 06:30 (Pepcid Inj) 10 mg Q12HR IV PUSH 06/15/17 09:00 06/16/17 09:39 (Zofran Inj) 4 mg Q6H PRN IV PUSH 06/15/17 06:30 (Duoneb Neb) 1 ampule Q4HR NEB PRN INH 06/15/17 06:30 Miscellaneous Information 1 Q361D XX 06/15/17 06:30 06/15/17 06:30 (Chlorhexidine 2% Cloth) 3 pack Taper DAILY@04 TOP 06/16/17 04:00 06/12/18 03:59 (Chlorhexidine 2% Cloth) 3 pack UNSCH PRN TOP 06/15/17 06:30 (Fallon-Colace) 1 tab BID PO 06/15/17 09:00 06/16/17 09:39 (Milk Of Magnesia Liq) 30 ml Q12H PRN PO 06/15/17 06:30 (Senokot) 17.2 mg Q12H PRN PO 06/15/17 06:30 (Dulcolax Supp) 10 mg DAILY PRN RECTAL 06/15/17 06:30 (Lactulose Liq) 30 ml DAILY PRN PO 06/15/17 06:30 (Peridex 0.12% Liq) 15 ml BID@08,20 MT 06/15/17 20:00 06/16/17 09:42 Propofol 100 ml @ 1.941 mls/ hr TITRATE PRN IV 06/15/17 14:45 06/15/17 14:41 Norepinephrine Bitartrate 4 mg/ Sodium Chloride 250 ml @ 7.5 mls/hr TITRATE PRN IV 06/15/17 21:45 06/15/17 19:00 Allergies Allergies Coded Allergies No Known Allergies (Unverified Adverse Reaction, Unknown, 06/15/17) Review of Systems All other ROS: Unable to obtain Exam I&O / VS Vital Signs Date Time Temp Pulse Resp B/P (MAP) Pulse Ox O2 Delivery O2 Flow Rate FiO2 06/16/17 08:36 99 50 06/16/17 08:36 99 Ventilator 40 06/16/17 06:00 92 06/16/17 04:08 100 50 06/16/17 04:00 76 06/16/17 04:00 99.4 76 14 119/69 (86) 97 06/16/17 02:00 77 06/16/17 00:00 100.0 79 14 137/85 (102) 100 06/16/17 00:00 79 06/15/17 23:26 100 50 06/15/17 22:00 100 06/15/17 21:00 134/81 06/15/17 20:15 144/87 06/15/17 20:00 98.2 106 14 136/93 (107) 100 06/15/17 20:00 Mechanical Ventilator 06/15/17 20:00 112 06/15/17 19:54 100 50 06/15/17 19:00 138/79 06/15/17 18:00 121 06/15/17 17:05 90 50 06/15/17 16:00 127 06/15/17 16:00 97.8 137 16 98/66 (77) 06/15/17 14:00 117 06/15/17 12:00 101 06/15/17 12:00 97.9 101 20 149/98 (115) 96 Exam Comments intubated, more alert, not following, ou 3mm sluggish, reduced blink to threat left hh, face sym, left hemiparesis leg weaker then arm; possible component of neglect and hemisensory loss Objective Micro and Labs Laboratory Tests Test 06/15/17 10:59 06/15/17 16:15 06/15/17 20:45 06/16/17 04:24 Lactic Acid Level 2.1 Blood Gas Puncture Site RT RADIAL Blood Gas Patient Temperature 98.6 Blood Gas HCO3 18 Blood Gas Base Excess -5.8 Blood Gas Oxygen Saturation 99 Arterial Blood pH 7.41 Arterial Blood Partial Pressure CO2 29 Arterial Blood Partial Pressure O2 506 Arterial Blood Oxygen Content 19.5 Arterial Blood Carboxyhemoglobin 0.6 Arterial Blood Methemoglobin 0.9 Blood Gas Hemoglobin 13.1 Oxygen Delivery Device VENTILATOR Blood Gas Ventilator Setting PRVC16/550/1.2/+8 Blood Gas Inspired Oxygen 100 Nasal Screen MRSA (PCR) MRSA NOT DETECTED White Blood Count 17.8 Red Blood Count 4.48 Hemoglobin 13.7 Hematocrit 40.0 Mean Corpuscular Volume 89.3 Mean Corpuscular Hemoglobin 30.7 Mean Corpuscular Hemoglobin Concent 34.4 Red Cell Distribution Width 13.1 Platelet Count 185 Mean Platelet Volume 8.3 Neutrophils (%) (Auto) 75.3 Lymphocytes (%) (Auto) 13.2 Monocytes (%) (Auto) 11.3 Eosinophils (%) (Auto) 0.0 Basophils (%) (Auto) 0.2 Neutrophils # (Auto) 13.4 Lymphocytes # (Auto) 2.4 Monocytes # (Auto) 2.0 Eosinophils # (Auto) 0.0 Basophils # (Auto) 0.0 CBC Comment DIFF FINAL Differential Comment Blood Urea Nitrogen 45 Creatinine 1.10 Random Glucose 141 Calcium Level 8.0 Phosphorus Level 1.8 Magnesium Level 2.3 Sodium Level 146 Potassium Level 3.8 Chloride Level 113 Carbon Dioxide Level 23.9 Anion Gap 9 Estimat Glomerular Filtration Rate 48 Date/Time Source Procedure Growth Status 06/15/17 05:26 Blood Peripheral Aerobic Blood Culture Pending Received 06/15/17 05:26 Blood Peripheral Anaerobic Blood Culture Pending Received 06/15/17 15:15 Cerebral Spinal Fluid Shunt Fluid Gram Stain - Final Resulted 06/15/17 15:15 Cerebral Spinal Fluid Shunt Fluid CSF Culture - Preliminary NO GROWTH IN 24 HOURS. Resulted Jose Cruz Crowell MD Jun 16, 2017 10:15
--- NOTE | 2017-06-16 10:26 | HHI.NSPN ---
(Bell Mooney) Note Status Status: Progress Note (Bell Mooney) Interval History Interval History 77 year old female with large hemorrhage stroke with hydrocephalus, worsening mental status, patient became severely obtunded difficult to arouse, she underwent placement of ventriculostomy drain 06/15/1706/16: ventriculostomy draining well, intubated, opening eyes and moving right side spontaneously. (Bell Mooney) Labs, Micro, & Vital Signs Results Date Time Temp Pulse Resp B/P (MAP) Pulse Ox O2 Delivery O2 Flow Rate FiO2 06/16/17 08:36 99 50 06/16/17 08:36 99 Ventilator 40 06/16/17 06:00 92 06/16/17 04:08 100 50 06/16/17 04:00 76 06/16/17 04:00 99.4 76 14 119/69 (86) 97 06/16/17 02:00 77 06/16/17 00:00 100.0 79 14 137/85 (102) 100 06/16/17 00:00 79 06/15/17 23:26 100 50 06/15/17 22:00 100 06/15/17 21:00 134/81 06/15/17 20:15 144/87 06/15/17 20:00 98.2 106 14 136/93 (107) 100 06/15/17 20:00 Mechanical Ventilator 06/15/17 20:00 112 06/15/17 19:54 100 50 06/15/17 19:00 138/79 06/15/17 18:00 121 06/15/17 17:05 90 50 06/15/17 16:00 127 06/15/17 16:00 97.8 137 16 98/66 (77) 06/15/17 14:00 117 06/15/17 12:00 101 06/15/17 12:00 97.9 101 20 149/98 (115) 96 Constitutional Vital Signs Date Time Temp Pulse Resp B/P (MAP) Pulse Ox O2 Delivery O2 Flow Rate FiO2 06/16/17 08:36 99 50 06/16/17 08:36 99 Ventilator 40 06/16/17 06:00 92 06/16/17 04:08 100 50 06/16/17 04:00 76 06/16/17 04:00 99.4 76 14 119/69 (86) 97 06/16/17 02:00 77 06/16/17 00:00 100.0 79 14 137/85 (102) 100 06/16/17 00:00 79 06/15/17 23:26 100 50 06/15/17 22:00 100 06/15/17 21:00 134/81 06/15/17 20:15 144/87 06/15/17 20:00 98.2 106 14 136/93 (107) 100 06/15/17 20:00 Mechanical Ventilator 06/15/17 20:00 112 06/15/17 19:54 100 50 06/15/17 19:00 138/79 06/15/17 18:00 121 06/15/17 17:05 90 50 06/15/17 16:00 127 06/15/17 16:00 97.8 137 16 98/66 (77) 06/15/17 14:00 117 06/15/17 12:00 101 06/15/17 12:00 97.9 101 20 149/98 (115) 96 (Bell Mooney) Physical Exam Gen: intubated, no acute distress HEENT:ventriculostomy drain in place at 5 cm H20, draining serousanguinous CSF well. pupils equal, nonicteric sclera. ET tube in place Neck: soft, supple Musculoskeletal: no obvious deformities. moves right side spontaneously, left dense paresis Heart: regular rate rhythm Resp: clear, mechanically vented Neuro: slightly opens eyes, does not follow commands. CN: pupils equal, exam limited due to clinical condition Cerebellar: cannot assess due to clinical status Skin: warm, dry (Bell Mooney) Gen: intubated, no acute distress HEENT:ventriculostomy drain in place at 5 cm H20, draining serousanguinous CSF well. pupils equal, nonicteric sclera. ET tube in place Neck: soft, supple Musculoskeletal: no obvious deformities. moves right side spontaneously, left dense paresis Heart: regular rate rhythm Resp: clear, mechanically vented Neuro: slightly opens eyes, does not follow commands. CN: pupils equal, exam limited due to clinical condition Cerebellar: cannot assess due to clinical status Skin: warm, dry (Andre Nixon MD) Medications Current Medications Current Medications Medications (Trade) Dose Ordered Sig/Jose Guadalupe Route PRN Reason Start Time Stop Time Status Last Admin Dose Admin Sodium Chloride (NS Flush) 2 ml UNSCH PRN IV FLUSH FLUSH AFTER USING IV ACCESS 06/15/17 05:15 Nicardipine HCl 25 mg/Sodium Chloride 250 ml @ 50 mls/hr TITRATE PRN IV Blood pressure management 06/15/17 06:15 06/15/17 06:15 Pravastatin Sodium (Pravachol) 80 mg HS PO 06/15/17 21:00 06/15/17 20:59 Sodium Chloride 1,000 ml @ 100 mls/hr Q10H IV 06/15/17 06:17 06/16/17 02:15 Acetaminophen (Tylenol) 650 mg Q6H PRN PO PAIN 1-10 AND/OR FEVER >101F 06/15/17 06:30 Morphine Sulfate (Morphine Inj) 2 mg Q2H PRN IV PUSH PAIN SCALE 6 TO 10 06/15/17 06:30 Famotidine (Pepcid Inj) 10 mg Q12HR IV PUSH 06/15/17 09:00 06/16/17 09:39 Ondansetron HCl (Zofran Inj) 4 mg Q6H PRN IV PUSH NAUSEA OR VOMITING 06/15/17 06:30 Albuterol/ Ipratropium (Duoneb Neb) 1 ampule Q4HR NEB PRN INH WHEEZING 06/15/17 06:30 Miscellaneous Information 1 Q361D XX 06/15/17 06:30 06/15/17 06:30 Chlorhexidine Gluconate (Chlorhexidine 2% Cloth) 3 pack Taper DAILY@04 TOP 06/16/17 04:00 06/12/18 03:59 Chlorhexidine Gluconate (Chlorhexidine 2% Cloth) 3 pack UNSCH PRN TOP HYGIENIC CARE 06/15/17 06:30 Senna/Docusate Sodium (Fallon-Colace) 1 tab BID PO 06/15/17 09:00 06/16/17 09:39 Magnesium Hydroxide (Milk Of Magnesia Liq) 30 ml Q12H PRN PO Mild constipation 06/15/17 06:30 Sennosides (Senokot) 17.2 mg Q12H PRN PO Moderate constipation 06/15/17 06:30 Bisacodyl (Dulcolax Supp) 10 mg DAILY PRN RECTAL SEVERE CONSITIPATION 06/15/17 06:30 Lactulose (Lactulose Liq) 30 ml DAILY PRN PO SEVERE CONSITIPATION 06/15/17 06:30 Chlorhexidine Gluconate (Peridex 0.12% Liq) 15 ml BID@08,20 MT 06/15/17 20:00 06/16/17 09:42 Propofol 100 ml @ 1.941 mls/ hr TITRATE PRN IV SEDATION 06/15/17 14:45 06/15/17 14:41 Norepinephrine Bitartrate 4 mg/ Sodium Chloride 250 ml @ 7.5 mls/hr TITRATE PRN IV Maintain MAP > 70 mmHg 06/15/17 21:45 06/15/17 19:00 (Bell Mooney) Medical Decision Making MDM Remarks 77 y/o female with large hemorrhagic stroke, she had evidence of hydrocephalus, she underwent placement of ventriculostomy drain 06/15/17 due to worsening mental status, appears improving (Bell Mooney) Plan Plan Remarks cont ventriculostomy draining at 5 cm H20, cont critical care nonchemical dvt prophylaxis in view of ICH serial neuro checks Neurologist following (Bell Mooney) Attending Statement As above. Continue ventriculostomy drainage of cerebrospinal fluid as well as intracranial pressure monitoring 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 Continue aggressive pulmonary toilette, nasotracheal suction, and breathing treatments with nebulizers. Daily PT and OT Nutrition. Tolerating Oral diet Renal. Continue to monitor closely urine output, BUN and creatinine Endocrine. Continue to Monitor serial Acu checks and SSI as needed in detail ID continue to monitor for signs of infection Continue Protonix for stress ulcer prophylaxis Continue Nickolas hose and SCD's for DVT prophylaxis Further recommendations will be provided depending on the patient's clinical evaluation and follow up studies. The exam, history, and the medical decision-making described in the above note were completed with the assistance of the mid-level provider. I reviewed and agree with the findings presented. I attest that I had a [id number] encounter with the patient on the same day, and personally performed and documented my assessment and findings in the medical record. (Andre Nixon MD) Bell Mooney Jun 16, 2017 10:26 Andre Nixon MD Jun 16, 2017 12:56
--- NOTE | 2017-06-16 12:39 | HHI.CCPN ---
Subjective Remarks/Hospital Course Admission Diagnosis Parenchymal Brain Hemorrhage Diagnosis: (1) Hemorrhagic stroke Diagnosis: Principal (2) Respiratory failure (3) Hypertensive urgency Diagnosis: Principal (4) Encephalopathy, metabolic Diagnosis: Principal (5) CLAYTON (acute kidney injury) Diagnosis: Secondary Severely dehydrated, elderly woman presents confused to [facility] ED with hypertensive urgency and semi-acute right hemispheric parenchymal brain hemorrhage. Arrived from [facility] on cardene gtt and aphasic. Handness not determined yet. Unable to get ROS. No anticoagulants. INR normal. 06/16: Flaccid left side. Minimal eye opening. Moves right arm and leg to stimulation. Breathes over vent. ICP control, EVD draining well. Objective Vital Signs Date Time Temp Pulse Resp B/P (MAP) Pulse Ox O2 Delivery O2 Flow Rate FiO2 06/16/17 11:45 100 40 06/16/17 08:36 Ventilator 06/16/17 06:00 92 06/16/17 04:00 99.4 14 119/69 (86) 06/15/17 06:52 2.00 Intake and Output 06/16/17 06/16/17 06/17/17 08:00 16:00 00:00 Output Total 425 ml Balance -425 ml Result Diagram: 06/16/17 0424 06/16/17 0424 Other Results Laboratory Tests Test 06/15/17 16:15 Blood Gas Puncture Site RT RADIAL Blood Gas Patient Temperature 98.6 Blood Gas HCO3 18 mmol/L (22-26) Blood Gas Base Excess -5.8 mmol/L (-2-2) Blood Gas Oxygen Saturation 99 % (90-100) Arterial Blood pH 7.41 (7.380-7.420) Arterial Blood Partial Pressure CO2 29 mmHg (38-42) Arterial Blood Partial Pressure O2 506 mmHg (61-120) Arterial Blood Oxygen Content 19.5 Vol % (12.0-20.0) Arterial Blood Carboxyhemoglobin 0.6 % (0-4) Arterial Blood Methemoglobin 0.9 % (0-2) Blood Gas Hemoglobin 13.1 G/DL (12.0-16.0) Oxygen Delivery Device VENTILATOR Blood Gas Ventilator Setting PRVC16/550/1.2/+8 Blood Gas Inspired Oxygen 100 % Objective Remarks Gen: Dense left sided deficit. Intubated, ventilated. Head: Atraumatic, normal. Neck: Supple, airway widely patent. Lungs: Clear, no adventitious sounds. Heart: Sinus 90s. No JVD. RRR. Abdomen: Soft, nontender, no guarding. BS active. Extremities: Warm, well perfused. Neuro: Pupils 2 mm, reactive. Opens eyes sporadically. Moves right arm and leg to stimulation. No movement left arm or leg. A/P Problem List: (1) Hemorrhagic stroke ICD Code: I61.9 - Nontraumatic intracerebral hemorrhage, unspecified Status: Acute (2) Hypertensive urgency ICD Code: I16.0 - Hypertensive urgency Status: Acute (3) Encephalopathy, metabolic ICD Code: G93.41 - Metabolic encephalopathy Status: Acute (4) CLAYTON (acute kidney injury) ICD Code: N17.9 - Acute kidney failure, unspecified Status: Acute Assessment and Plan Plan: 1. Neuro checks. 2. Maintenance iv fluid, isotonic. 3. Cardene gtt to keep SBP < 160. 4. Swallow evaluation. 5. Pepcid. 6. No chemical DVT px. 7. SCDs. 8. MRI brain. 9. PRVC vent mode 10. Repeat head CT a.m. Overall impression: Patient is critically ill with acute brain hemorrhage complicated by dehydration, rhabdomyolysis, kidney injury, and hypertensive urgency.. She was deteriorating rapidly and required intubation and mechanical ventilation. She remains critically ill and neurologically unstable. Prognosis guarded. Critical care 37 mins Ulisses Gunter MD Jun 16, 2017 12:39
[2017-06-16] MEDS: PRAVASTATIN SOD 80 MG TAB PO SCH (23:40)
[2017-06-16] MEDS: MORPHINE SULFATE 2 MG/ML SYRINGE IV PUSH PRN (23:41)
[2017-06-17] VITALS (17 sets, daily range): BP systolic 129–157; BP diastolic 60–93; PULSE 88–104; RESP 12–25; TEMP 98.4–99.6; O2SAT 97–100
[2017-06-17] MEDS: CHLORHEXIDINE GLUCONATE 2 % 1 PACK (2 CLOTHS) TOP SCH (04:00)
[2017-06-17] MEDS: niCARdipine INJ 25 MG in SODIUM CHLOR 0.9% 250 ML INJ 240 ML IV PRN (05:09)
[2017-06-17 05:57] LABS: BICARBONATE 22.4 MEQ/L (21.0-32.0); CALCIUM 7.6 MG/DL (8.5-10.1); CREATININE 0.88 MG/DL (0.50-1.00)
[2017-06-17] MEDS: SODIUM CHLOR 0.9% 1000 ML INJ 1,000 ML IV SCH (07:29)
[2017-06-17] MEDS: CHLORHEXIDINE 0.12% (ORAL KIT) 15 ML CUP MT SCH ×2 (08:00→20:00)
[2017-06-17 08:47] LABS: AUTOMATED NEUTROPHIL # 12.6 TH/MM3 (1.8-7.7); BASOPHIL % 0.2 % (0.0-2.0); EOSINOPHIL % 0.1 % (0.0-4.0); HEMATOCRIT 38.2 % (35.0-46.0); HEMOGLOBIN 12.8 GM/DL (11.6-15.3); LYMPHOCYTE # 1.8 TH/MM3 (1.0-4.8); MEAN CELL VOLUME 88.7 FL (80.0-100.0); MEAN CORPUSCULAR HEMOGLOBIN 29.8 PG (27.0-34.0); MEAN CORPUSCULAR HGB CONC 33.6 % (32.0-36.0); MEAN PLATELET VOLUME 9.2 FL (7.0-11.0); MONO % 10.9 % (0.0-8.0); MONOCYTE # 1.8 TH/MM3 (0-0.9); NEUT % 77.8 % (16.0-70.0); PLATELET COUNT 147 TH/MM3 (150-450); RED CELL DISTRIBUTION WIDTH 12.8 % (11.6-17.2); WHITE BLOOD COUNT 16.1 TH/MM3 (4.0-11.0)
[2017-06-17] MEDS: DOCUSATE SODIUM 50 MG/SENNA 8.6 MG TAB PO SCH ×2 (10:15→23:23)
[2017-06-17] MEDS: FAMOTIDINE 20 MG/2 ML VIAL IV PUSH SCH ×2 (10:17→23:23)
--- NOTE | 2017-06-17 11:19 | HHI.PR ---
Review/Management Diagnosis/Plan: (1) Intracranial hemorrhage ICD Codes: I62.9 - Nontraumatic intracranial hemorrhage, unspecified Status: Acute Plan: rt o-p ich large spontaneous, likely hypertensive limited current exam due to events over the past few hours mra brain- nml mri brain images reviewed recs neuro exam improved; follows, looks comfortable will add keppra prophylaxis; also in light of sudden decompensation check lipid panel; will look at reducing dose of statin based on results extubate per ccm/nsx (2) Encephalopathy, metabolic ICD Codes: G93.41 - Metabolic encephalopathy Status: Acute Plan: due to ich (3) Hypertensive emergency ICD Codes: I16.1 - Hypertensive emergency Status: Acute Plan: improved on bp meds (4) CLAYTON (acute kidney injury) ICD Codes: N17.9 - Acute kidney failure, unspecified Status: Acute Subjective Subjective Comments No acute events reported No headache No chest pain No dyspnea Active Medications Current Medications Medications (Trade) Dose Ordered Sig/Jose Guadalupe Route Start Time Stop Time Status Last Admin (NS Flush) 2 ml UNSCH PRN IV FLUSH 06/15/17 05:15 Nicardipine HCl 25 mg/Sodium Chloride 250 ml @ 50 mls/hr TITRATE PRN IV 06/15/17 06:15 06/17/17 05:09 (Pravachol) 80 mg HS PO 06/15/17 21:00 06/16/17 23:40 Sodium Chloride 1,000 ml @ 100 mls/hr Q10H IV 06/15/17 06:17 06/17/17 07:29 (Tylenol) 650 mg Q6H PRN PO 06/15/17 06:30 (Morphine Inj) 2 mg Q2H PRN IV PUSH 06/15/17 06:30 06/16/17 23:41 (Pepcid Inj) 10 mg Q12HR IV PUSH 06/15/17 09:00 06/17/17 10:17 (Zofran Inj) 4 mg Q6H PRN IV PUSH 06/15/17 06:30 (Duoneb Neb) 1 ampule Q4HR NEB PRN INH 06/15/17 06:30 Miscellaneous Information 1 Q361D XX 06/15/17 06:30 06/15/17 06:30 (Chlorhexidine 2% Cloth) 3 pack Taper DAILY@04 TOP 06/16/17 04:00 3/13/19 03:59 (Chlorhexidine 2% Cloth) 3 pack UNSCH PRN TOP 06/15/17 06:30 (Fallon-Colace) 1 tab BID PO 06/15/17 09:00 06/17/17 10:15 (Milk Of Magnesia Liq) 30 ml Q12H PRN PO 06/15/17 06:30 (Senokot) 17.2 mg Q12H PRN PO 06/15/17 06:30 (Dulcolax Supp) 10 mg DAILY PRN RECTAL 06/15/17 06:30 (Lactulose Liq) 30 ml DAILY PRN PO 06/15/17 06:30 (Peridex 0.12% Liq) 15 ml BID@08,20 MT 06/15/17 20:00 06/17/17 08:00 Propofol 100 ml @ 1.941 mls/ hr TITRATE PRN IV 06/15/17 14:45 06/15/17 14:41 Norepinephrine Bitartrate 4 mg/ Sodium Chloride 250 ml @ 7.5 mls/hr TITRATE PRN IV 06/15/17 21:45 06/15/17 19:00 Allergies Allergies Coded Allergies No Known Allergies (Unverified Adverse Reaction, Unknown, 06/15/17) Review of Systems All other ROS: Unable to obtain Exam I&O / VS Vital Signs Date Time Temp Pulse Resp B/P (MAP) Pulse Ox O2 Delivery O2 Flow Rate FiO2 06/17/17 08:55 100 Ventilator 40 06/17/17 08:55 100 40 06/17/17 08:55 40 06/17/17 06:30 102 132/73 06/17/17 06:00 100 06/17/17 05:15 97 40 06/17/17 05:09 97 177/101 06/17/17 04:00 99.5 100 14 157/93 (114) 99 06/17/17 04:00 100 06/17/17 04:00 40 06/17/17 02:00 97 06/17/17 01:22 97 40 06/17/17 00:00 104 06/17/17 00:00 40 06/17/17 00:00 99.2 104 14 129/83 (98) 97 06/16/17 22:00 98 06/16/17 20:20 99 40 06/16/17 20:00 Mechanical Ventilator 06/16/17 20:00 102 06/16/17 20:00 40 06/16/17 20:00 98.9 101 18 164/95 (118) 97 06/16/17 18:00 102 06/16/17 18:00 100 40 06/16/17 16:00 67 06/16/17 16:00 98.2 67 14 174/83 (113) 99 06/16/17 14:00 94 06/16/17 12:00 98 06/16/17 12:00 100.1 98 14 137/78 (97) 99 06/16/17 11:45 100 40 Exam Comments intubated, more alert, following, ou 3mm sluggish, reduced blink to threat left hh, face sym, left hemiparesis leg weaker then arm 3/5 able to cat scan tech with both ue; possible component of neglect and hemisensory loss Objective Micro and Labs Laboratory Tests Test 06/17/17 05:10 06/17/17 06:30 Blood Urea Nitrogen 36 Creatinine 0.88 Random Glucose 127 Calcium Level 7.6 Sodium Level 151 Potassium Level 3.4 Chloride Level 118 Carbon Dioxide Level 22.4 Anion Gap 11 Estimat Glomerular Filtration Rate 62 White Blood Count 16.1 Red Blood Count 4.30 Hemoglobin 12.8 Hematocrit 38.2 Mean Corpuscular Volume 88.7 Mean Corpuscular Hemoglobin 29.8 Mean Corpuscular Hemoglobin Concent 33.6 Red Cell Distribution Width 12.8 Platelet Count 147 Mean Platelet Volume 9.2 Neutrophils (%) (Auto) 77.8 Lymphocytes (%) (Auto) 11.0 Monocytes (%) (Auto) 10.9 Eosinophils (%) (Auto) 0.1 Basophils (%) (Auto) 0.2 Neutrophils # (Auto) 12.6 Lymphocytes # (Auto) 1.8 Monocytes # (Auto) 1.8 Eosinophils # (Auto) 0.0 Basophils # (Auto) 0.0 CBC Comment DIFF FINAL Differential Comment Date/Time Source Procedure Growth Status 06/15/17 05:26 Blood Peripheral Aerobic Blood Culture - Preliminary NO GROWTH IN 2 DAYS Resulted 06/15/17 05:26 Blood Peripheral Anaerobic Blood Culture - Preliminary NO GROWTH IN 2 DAYS Resulted 06/15/17 15:15 Cerebral Spinal Fluid Shunt Fluid Gram Stain - Final Resulted 06/15/17 15:15 Cerebral Spinal Fluid Shunt Fluid CSF Culture - Preliminary NO GROWTH IN 24 HOURS. Resulted Jose Cruz Crowell MD Jun 17, 2017 11:19
--- NOTE | 2017-06-17 12:42 | HHI.CCPN ---
Subjective Remarks/Hospital Course Admission Diagnosis Parenchymal Brain Hemorrhage Diagnosis: (1) Hemorrhagic stroke Diagnosis: Principal (2) Respiratory failure (3) Hypertensive urgency Diagnosis: Principal (4) Encephalopathy, metabolic Diagnosis: Principal (5) CLAYTON (acute kidney injury) Diagnosis: Secondary Severely dehydrated, elderly woman presents confused to [facility] ED with hypertensive urgency and semi-acute right hemispheric parenchymal brain hemorrhage. Arrived from [facility] on cardene gtt and aphasic. Handness not determined yet. Unable to get ROS. No anticoagulants. INR normal. 06/16: Flaccid left side. Minimal eye opening. Moves right arm and leg to stimulation. Breathes over vent. ICP control, EVD draining well. 06/17: Moving both arms, right much stronger. More alert but episodic apnea spells. Objective Vital Signs Date Time Temp Pulse Resp B/P (MAP) Pulse Ox O2 Delivery O2 Flow Rate FiO2 06/17/17 10:00 98 06/17/17 08:55 100 Ventilator 40 06/17/17 08:00 99.3 14 144/84 (104) 06/15/17 06:52 2.00 Intake and Output 06/17/17 06/17/17 06/18/17 08:00 16:00 00:00 Output Total 535 ml Balance -535 ml Result Diagram: 06/17/17 0630 06/17/17 0510 Objective Remarks Gen: Dense left sided deficit. Intubated, ventilated. Head: Atraumatic, normal. Neck: Supple, airway widely patent. Lungs: Clear, no adventitious sounds. Heart: Sinus 90s. No JVD. RRR. Abdomen: Soft, nontender, no guarding. BS active. Extremities: Warm, well perfused. Neuro: Pupils 2 mm, reactive. Opens eyes sporadically. Moves right arm and leg to stimulation. Moves left arm to stimulation 3/5 power. No hand grasp A/P Problem List: (1) Hemorrhagic stroke ICD Code: I61.9 - Nontraumatic intracerebral hemorrhage, unspecified Status: Acute (2) Hypertensive urgency ICD Code: I16.0 - Hypertensive urgency Status: Acute (3) Encephalopathy, metabolic ICD Code: G93.41 - Metabolic encephalopathy Status: Acute (4) CLAYTON (acute kidney injury) ICD Code: N17.9 - Acute kidney failure, unspecified Status: Acute Assessment and Plan Plan: 1. Neuro checks. 2. Maintenance iv fluid, isotonic. 3. Cardene gtt to keep SBP < 160. 4. Swallow evaluation. 5. Pepcid. 6. No chemical DVT px. 7. SCDs. 8. MRI brain. 9. PRVC vent mode 10. Start SBTs. 11. FU CT Head Overall impression: Patient is critically ill with acute brain hemorrhage complicated by dehydration, rhabdomyolysis, kidney injury, and hypertensive urgency. Initially was deteriorating rapidly and required intubation and mechanical ventilation. She remains critically ill and neurologically unstable, unable to wean from ventilator. Prognosis guarded. Critical care 36 mins Ulisses Gunter MD Jun 17, 2017 12:42
[2017-06-17 12:43] LABS: CHOLESTEROL/ HDL RATIO 3.04 RATIO
[2017-06-17] MEDS ORDERED: POTASSIUM CHLORIDE INJ 20 MEQ in LACTATED RINGER'S 1000 ML INJ 1,000 ML IV SCH (12:45)
[2017-06-17] MEDS: levETIRAcetam 500 MG TAB PO SCH ×2 (12:57→23:22)
[2017-06-17] MEDS: POTASSIUM CHLORIDE IV SCH (13:15)
[2017-06-17] MEDS: LACTATED RINGER S IV SCH (13:15)
--- NOTE | 2017-06-17 15:57 | HHI.NSPN ---
Note Status Status: Progress Note Interval History Interval History 77 year old female with large hemorrhage stroke with hydrocephalus, worsening mental status, patient became severely obtunded difficult to arouse, she underwent placement of ventriculostomy drain 06/15/1706/16: ventriculostomy draining well, intubated, opening eyes and moving right side spontaneously. 06/17. Neurologically stable. open eyes. Stable left hemiparesis Labs, Micro, & Vital Signs Results Date Time Temp Pulse Resp B/P (MAP) Pulse Ox O2 Delivery O2 Flow Rate FiO2 06/17/17 14:00 102 06/17/17 12:00 99.1 101 12 145/72 (96) 98 06/17/17 12:00 101 06/17/17 12:00 40 06/17/17 10:00 98 06/17/17 08:55 100 Ventilator 40 06/17/17 08:55 100 40 06/17/17 08:55 40 06/17/17 08:00 98 06/17/17 08:00 99.3 100 14 144/84 (104) 100 06/17/17 08:00 40 06/17/17 07:00 100 Mechanical Ventilator 50 06/17/17 06:30 102 132/73 06/17/17 06:00 100 06/17/17 05:15 97 40 06/17/17 05:09 97 177/101 06/17/17 04:00 99.5 100 14 157/93 (114) 99 06/17/17 04:00 100 06/17/17 04:00 40 06/17/17 02:00 97 06/17/17 01:22 97 40 06/17/17 00:00 104 06/17/17 00:00 40 06/17/17 00:00 99.2 104 14 129/83 (98) 97 06/16/17 22:00 98 06/16/17 20:20 99 40 06/16/17 20:00 Mechanical Ventilator 06/16/17 20:00 102 06/16/17 20:00 40 06/16/17 20:00 98.9 101 18 164/95 (118) 97 06/16/17 18:00 102 06/16/17 18:00 100 40 06/16/17 16:00 67 06/16/17 16:00 98.2 67 14 174/83 (113) 99 Constitutional Vital Signs Date Time Temp Pulse Resp B/P (MAP) Pulse Ox O2 Delivery O2 Flow Rate FiO2 06/17/17 14:00 102 06/17/17 12:00 99.1 101 12 145/72 (96) 98 06/17/17 12:00 101 06/17/17 12:00 40 06/17/17 10:00 98 06/17/17 08:55 100 Ventilator 40 06/17/17 08:55 100 40 06/17/17 08:55 40 06/17/17 08:00 98 06/17/17 08:00 99.3 100 14 144/84 (104) 100 06/17/17 08:00 40 06/17/17 07:00 100 Mechanical Ventilator 50 06/17/17 06:30 102 132/73 06/17/17 06:00 100 06/17/17 05:15 97 40 06/17/17 05:09 97 177/101 06/17/17 04:00 99.5 100 14 157/93 (114) 99 06/17/17 04:00 100 06/17/17 04:00 40 06/17/17 02:00 97 06/17/17 01:22 97 40 06/17/17 00:00 104 06/17/17 00:00 40 06/17/17 00:00 99.2 104 14 129/83 (98) 97 06/16/17 22:00 98 06/16/17 20:20 99 40 06/16/17 20:00 Mechanical Ventilator 06/16/17 20:00 102 06/16/17 20:00 40 06/16/17 20:00 98.9 101 18 164/95 (118) 97 06/16/17 18:00 102 06/16/17 18:00 100 40 06/16/17 16:00 67 06/16/17 16:00 98.2 67 14 174/83 (113) 99 Physical Exam Gen: intubated, no acute distress HEENT:ventriculostomy drain in place at 5 cm H20, draining serousanguinous CSF well. pupils equal, nonicteric sclera. ET tube in place Neck: soft, supple Musculoskeletal: no obvious deformities. moves right side spontaneously, left dense paresis Heart: regular rate rhythm Resp: clear, mechanically vented Neuro: slightly opens eyes, does not follow commands. CN: pupils equal, exam limited due to clinical condition Cerebellar: cannot assess due to clinical status Skin: warm, dry Medications Current Medications Current Medications Sodium Chloride (NS Flush) 2 ml UNSCH PRN IV FLUSH FLUSH AFTER USING IV ACCESS ; Start 06/15/17 at 05:15 Sodium Chloride 500 ml @ 500 mls/hr BOLUS ONCE IV ; Start 06/15/17 at 06:00; Stop 06/15/17 at 06:59; Status DC Nicardipine HCl 25 mg/Sodium Chloride 250 ml @ 50 mls/hr TITRATE PRN IV Blood pressure management Last administered on 06/17/17at 05:09; Start 06/15/17 at 06: 15 Pravastatin Sodium (Pravachol) 80 mg HS PO Last administered on 06/16/17at 23:40 ; Start 06/15/17 at 21:00 Levetriacetam 100 ml @ 400 mls/hr BOLUS ONCE IV Last administered on at 09:43; Start 06/15/17 at 06:30; Stop 06/15/17 at 06:44; Status DC Sodium Chloride 1,000 ml @ 100 mls/hr Q10H IV Last administered on 06/17/17at 07:29; Start 06/15/17 at 06:17; Stop 06/17/17 at 12:42; Status DC Acetaminophen (Tylenol) 650 mg Q6H PRN PO PAIN 1-10 AND/OR FEVER >101F; Start 06/15/17 at 06:30 Morphine Sulfate (Morphine Inj) 2 mg Q2H PRN IV PUSH PAIN SCALE 6 TO 10 Last administered on 06/16/17at 23:41; Start 06/15/17 at 06:30 Famotidine (Pepcid Inj) 10 mg Q12HR IV PUSH Last administered on 06/17/17at 10: 17; Start 06/15/17 at 09:00 Ondansetron HCl (Zofran Inj) 4 mg Q6H PRN IV PUSH NAUSEA OR VOMITING; Start at 06:30 Albuterol/ Ipratropium (Duoneb Neb) 1 ampule Q4HR NEB PRN INH WHEEZING; Start 06/15/17 at 06:30 Miscellaneous Information 1 Q361D XX Last administered on 06/15/17at 06:30; Start 06/15/17 at 06:30 Chlorhexidine Gluconate (Chlorhexidine 2% Cloth) 3 pack Taper DAILY@04 TOP ; Start 06/16/17 at 04:00; Stop 06/12/18 at 03:59 Chlorhexidine Gluconate (Chlorhexidine 2% Cloth) 3 pack UNSCH PRN TOP HYGIENIC CARE; Start 06/15/17 at 06:30 Senna/Docusate Sodium ([place]-Colace) 1 tab BID PO Last administered on at 10:15; Start 06/15/17 at 09:00 Magnesium Hydroxide (Milk Of Magnesia Liq) 30 ml Q12H PRN PO Mild constipation ; Start 06/15/17 at 06:30 Sennosides (Senokot) 17.2 mg Q12H PRN PO Moderate constipation; Start 06/15/17 at 06:30 Bisacodyl (Dulcolax Supp) 10 mg DAILY PRN RECTAL SEVERE CONSITIPATION; Start at 06:30 Lactulose (Lactulose Liq) 30 ml DAILY PRN PO SEVERE CONSITIPATION; Start at 06:30 Rocuronium [place] (Zemuron Inj) 100 mg BOLUS ONCE IV Last administered on at 14:34; Start 06/15/17 at 14:00; Stop 06/15/17 at 14:01; Status DC Midazolam HCl (Versed Inj) 5 mg ONCE ONCE IV PUSH Last administered on at 14:35; Start 06/15/17 at 14:00; Stop 06/15/17 at 14:01; Status DC Chlorhexidine Gluconate (Peridex 0.12% Liq) 15 ml BID@08,20 MT Last administered on 06/17/17at 08:00; Start 06/15/17 at 20:00 Propofol 100 ml @ 0 mls/hr TITRATE PRN IV SEDATION; Start 06/15/17 at 14:00; Status UNV Midazolam HCl (Versed Inj) 5 mg STK-MED ONCE .ROUTE ; Start 06/15/17 at 14:07; Stop 06/15/17 at 14:08; Status DC Rocuronium [place] (Zemuron Inj) 50 mg STK-MED ONCE .ROUTE ; Start 06/15/17 at 14:07; Stop 06/15/17 at 14:08; Status DC Propofol 100 ml @ 1.941 mls/ hr TITRATE PRN IV SEDATION Last administered on at 14:41; Start 06/15/17 at 14:45 Miscellaneous Information (RASS Change Order) 1 ea ONCE ONCE XX Last administered on 06/15/17at 14:45; Start 06/15/17 at 14:45; Stop 06/15/17 at 14:46 ; Status DC Norepinephrine Bitartrate 4 mg/ Sodium Chloride 250 ml @ 7.5 mls/hr TITRATE PRN IV Maintain MAP > 70 mmHg; Start 06/15/17 at 19:45; Stop 06/15/17 at 21:37; Status DC Norepinephrine Bitartrate 4 mg/ Sodium Chloride 250 ml @ 7.5 mls/hr TITRATE PRN IV Maintain MAP > 70 mmHg Last administered on 06/15/17at 19:00; Start at 21:45 Levetriacetam (Keppra) 500 mg Q12HR PO Last administered on 06/17/17at 12:57; Start 06/17/17 at 11:30 Potassium Chloride 20 meq/ Lactated Ringer's 1,010 ml @ 42 mls/hr Q24H IV ; Start 06/17/17 at 12:45; Stop 06/17/17 at 13:02; Status DC Potassium Chloride 10 meq/ Lactated Ringer's 505 ml @ 42 mls/hr Q12H2M IV ; Start 06/17/17 at 13:15 Attending Statement Continue ventriculostomy drainage of cerebrospinal fluid as well as intracranial pressure monitoring 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 Continue aggressive pulmonary toilette, nasotracheal suction, and breathing treatments with nebulizers. Daily PT and OT Nutrition. Tolerating Oral diet Renal. Continue to monitor closely urine output, BUN and creatinine Endocrine. Continue to Monitor serial Acu checks and SSI as needed in detail ID continue to monitor for signs of infection Continue Protonix for stress ulcer prophylaxis Continue Nickolas hose and SCD's for DVT prophylaxis Andre Nixon MD Jun 17, 2017 15:57
[2017-06-17] MEDS: PRAVASTATIN SOD 80 MG TAB PO SCH (23:23)
[2017-06-18] VITALS (17 sets, daily range): BP systolic 132–160; BP diastolic 67–81; PULSE 82–118; RESP 11–20; TEMP 97.3–99.4; O2SAT 96–100
[2017-06-18] MEDS: niCARdipine INJ 25 MG in SODIUM CHLOR 0.9% 250 ML INJ 240 ML IV PRN ×3 (00:01→22:06)
[2017-06-18] MEDS: CHLORHEXIDINE GLUCONATE 2 % 1 PACK (2 CLOTHS) TOP SCH (04:00)
[2017-06-18] MEDS: CHLORHEXIDINE 0.12% (ORAL KIT) 15 ML CUP MT SCH ×2 (08:00→19:37)
[2017-06-18] MEDS: levETIRAcetam 500 MG TAB PO SCH ×2 (08:37→22:02)
[2017-06-18] MEDS: DOCUSATE SODIUM 50 MG/SENNA 8.6 MG TAB PO SCH ×2 (08:37→22:02)
[2017-06-18] MEDS: FAMOTIDINE 20 MG/2 ML VIAL IV PUSH SCH ×2 (08:38→22:02)
[2017-06-18 09:08] LABS: BICARBONATE 21.4 MEQ/L (21.0-32.0); CALCIUM 7.6 MG/DL (8.5-10.1); CREATININE 0.87 MG/DL (0.50-1.00)
--- NOTE | 2017-06-18 09:31 | HHI.PR ---
Review/Management Diagnosis/Plan: (1) Intracranial hemorrhage ICD Codes: I62.9 - Nontraumatic intracranial hemorrhage, unspecified Status: Acute Plan: rt o-p ich large spontaneous, likely hypertensive limited current exam due to events over the past few hours mra brain- nml mri brain images reviewed keppr added recs neuro exam improved; follows. doing well bp stable reduce lipid dose extubate per ccm/nsx (2) Encephalopathy, metabolic ICD Codes: G93.41 - Metabolic encephalopathy Status: Acute Plan: due to ich (3) Hypertensive emergency ICD Codes: I16.1 - Hypertensive emergency Status: Acute Plan: improved on bp meds (4) [place] (acute kidney injury) ICD Codes: N17.9 - Acute kidney failure, unspecified Status: Acute Subjective Subjective Comments No acute events reported Active Medications Current Medications Medications (Trade) Dose Ordered Sig/Jose Guadalupe Route Start Time Stop Time Status Last Admin (NS Flush) 2 ml UNSCH PRN IV FLUSH 06/15/17 05:15 Nicardipine HCl 25 mg/Sodium Chloride 250 ml @ 50 mls/hr TITRATE PRN IV 06/15/17 06:15 06/18/17 00:01 (Pravachol) 80 mg HS PO 06/15/17 21:00 06/17/17 23:23 (Tylenol) 650 mg Q6H PRN PO 06/15/17 06:30 (Morphine Inj) 2 mg Q2H PRN IV PUSH 06/15/17 06:30 06/16/17 23:41 (Pepcid Inj) 10 mg Q12HR IV PUSH 06/15/17 09:00 06/18/17 08:38 (Zofran Inj) 4 mg Q6H PRN IV PUSH 06/15/17 06:30 (Duoneb Neb) 1 ampule Q4HR NEB PRN INH 06/15/17 06:30 Miscellaneous Information 1 Q361D XX 06/15/17 06:30 06/15/17 06:30 (Chlorhexidine 2% Cloth) 3 pack Taper DAILY@04 TOP 06/16/17 04:00 06/12/18 03:59 (Chlorhexidine 2% Cloth) 3 pack UNSCH PRN TOP 06/15/17 06:30 ([place]-Colace) 1 tab BID PO 06/15/17 09:00 06/18/17 08:37 (Milk Of Magnesia Liq) 30 ml Q12H PRN PO 06/15/17 06:30 (Senokot) 17.2 mg Q12H PRN PO 06/15/17 06:30 (Dulcolax Supp) 10 mg DAILY PRN RECTAL 06/15/17 06:30 (Lactulose Liq) 30 ml DAILY PRN PO 06/15/17 06:30 (Peridex 0.12% Liq) 15 ml BID@08,20 MT 06/15/17 20:00 06/18/17 08:00 Propofol 100 ml @ 1.941 mls/ hr TITRATE PRN IV 06/15/17 14:45 06/15/17 14:41 Norepinephrine Bitartrate 4 mg/ Sodium Chloride 250 ml @ 7.5 mls/hr TITRATE PRN IV 06/15/17 21:45 06/15/17 19:00 (Keppra) 500 mg Q12HR PO 06/17/17 11:30 06/18/17 08:37 Potassium Chloride 10 meq/ Lactated Ringer's 505 ml @ 42 mls/hr Q12H2M IV 06/17/17 13:15 06/17/17 13:15 Allergies Allergies Coded Allergies No Known Allergies (Unverified Adverse Reaction, Unknown, 06/15/17) Review of Systems All other ROS: Unable to obtain Exam I&O / VS Vital Signs Date Time Temp Pulse Resp B/P (MAP) Pulse Ox O2 Delivery O2 Flow Rate FiO2 06/18/17 08:22 35 06/18/17 08:22 98 35 06/18/17 08:20 35 06/18/17 08:00 98.5 100 20 142/74 (96) 98 06/18/17 08:00 40 06/18/17 07:00 100 Mechanical Ventilator 35 06/18/17 06:00 101 06/18/17 05:00 96 40 06/18/17 04:00 104 06/18/17 04:00 98.9 103 11 132/80 (97) 97 06/18/17 04:00 40 06/18/17 02:00 106 06/18/17 01:08 99 40 06/18/17 00:01 104 150/76 06/18/17 00:00 40 06/18/17 00:00 99.0 104 12 150/76 (100) 97 06/18/17 00:00 104 06/17/17 22:00 102 06/17/17 20:01 98 40 06/17/17 20:00 98.4 102 14 139/72 (94) 100 06/17/17 20:00 40 06/17/17 20:00 104 06/17/17 19:00 100 Mechanical Ventilator 35 06/17/17 18:00 102 06/17/17 16:29 99 40 06/17/17 16:00 99.6 88 25 135/60 (85) 100 06/17/17 16:00 96 06/17/17 16:00 40 06/17/17 14:00 102 06/17/17 12:00 99.1 101 12 145/72 (96) 98 06/17/17 12:00 101 06/17/17 12:00 40 06/17/17 10:00 98 Exam Comments intubated, alert, following, ou 3mm sluggish, reduced blink to threat left hh, face sym, left hemiparesis leg weaker then arm 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; possible component of neglect and hemisensory loss Objective Micro and Labs Laboratory Tests Test 06/18/17 05:15 Blood Urea Nitrogen 31 Creatinine 0.87 Random Glucose 139 Calcium Level 7.6 Sodium Level 152 Potassium Level 3.7 Chloride Level 119 Carbon Dioxide Level 21.4 Anion Gap 12 Estimat Glomerular Filtration Rate 63 Date/Time Source Procedure Growth Status 06/15/17 05:26 Blood Peripheral Aerobic Blood Culture - Preliminary NO GROWTH IN 2 DAYS Resulted 06/15/17 05:26 Blood Peripheral Anaerobic Blood Culture - Preliminary NO GROWTH IN 2 DAYS Resulted 06/15/17 15:15 Cerebral Spinal Fluid Shunt Fluid Gram Stain - Final Resulted 06/15/17 15:15 Cerebral Spinal Fluid Shunt Fluid CSF Culture - Preliminary NO GROWTH IN 48 HOURS. Resulted 06/18/17 05:40 Sputum Endotracheal Gram Stain - Final Resulted 06/18/17 05:40 Sputum Endotracheal Sputum Culture Pending Resulted Jose Cruz Crowell MD Jun 18, 2017 09:31
[2017-06-18] MEDS: POTASSIUM CHLORIDE IV SCH ×3 (10:00→22:43)
[2017-06-18] MEDS: LACTATED RINGER S IV SCH ×3 (10:00→22:43)
--- NOTE | 2017-06-18 11:24 | HHI.NSPN ---
(Bell Mooney) Note Status Status: Progress Note (Bell Mooney) Interval History Interval History 77 year old female with large hemorrhage stroke with hydrocephalus, worsening mental status, patient became severely obtunded difficult to arouse, she underwent placement of ventriculostomy drain 06/15/1706/16: ventriculostomy draining well, intubated, opening eyes and moving right side spontaneously. 06/18: ventriculostomy draining well, remains intubated, opens eyes, tracks, moves right side, stable left paresis (Bell Mooney) Labs, Micro, & Vital Signs Results Date Time Temp Pulse Resp B/P (MAP) Pulse Ox O2 Delivery O2 Flow Rate FiO2 06/18/17 08:22 35 06/18/17 08:22 98 35 06/18/17 08:20 35 06/18/17 08:00 98.5 100 20 142/74 (96) 98 06/18/17 08:00 40 06/18/17 07:00 100 Mechanical Ventilator 35 06/18/17 06:00 101 06/18/17 05:00 96 40 06/18/17 04:00 104 06/18/17 04:00 98.9 103 11 132/80 (97) 97 06/18/17 04:00 40 06/18/17 02:00 106 06/18/17 01:08 99 40 06/18/17 00:01 104 150/76 06/18/17 00:00 40 06/18/17 00:00 99.0 104 12 150/76 (100) 97 06/18/17 00:00 104 06/17/17 22:00 102 06/17/17 20:01 98 40 06/17/17 20:00 98.4 102 14 139/72 (94) 100 06/17/17 20:00 40 06/17/17 20:00 104 06/17/17 19:00 100 Mechanical Ventilator 35 06/17/17 18:00 102 06/17/17 16:29 99 40 06/17/17 16:00 99.6 88 25 135/60 (85) 100 06/17/17 16:00 96 06/17/17 16:00 40 06/17/17 14:00 102 06/17/17 12:00 99.1 101 12 145/72 (96) 98 06/17/17 12:00 101 06/17/17 12:00 40 Constitutional Vital Signs Date Time Temp Pulse Resp B/P (MAP) Pulse Ox O2 Delivery O2 Flow Rate FiO2 06/18/17 08:22 35 06/18/17 08:22 98 35 06/18/17 08:20 35 06/18/17 08:00 98.5 100 20 142/74 (96) 98 06/18/17 08:00 40 06/18/17 07:00 100 Mechanical Ventilator 35 06/18/17 06:00 101 06/18/17 05:00 96 40 06/18/17 04:00 104 06/18/17 04:00 98.9 103 11 132/80 (97) 97 06/18/17 04:00 40 06/18/17 02:00 106 06/18/17 01:08 99 40 06/18/17 00:01 104 150/76 06/18/17 00:00 40 06/18/17 00:00 99.0 104 12 150/76 (100) 97 06/18/17 00:00 104 06/17/17 22:00 102 06/17/17 20:01 98 40 06/17/17 20:00 98.4 102 14 139/72 (94) 100 06/17/17 20:00 40 06/17/17 20:00 104 06/17/17 19:00 100 Mechanical Ventilator 35 06/17/17 18:00 102 06/17/17 16:29 99 40 06/17/17 16:00 99.6 88 25 135/60 (85) 100 06/17/17 16:00 96 06/17/17 16:00 40 06/17/17 14:00 102 06/17/17 12:00 99.1 101 12 145/72 (96) 98 06/17/17 12:00 101 06/17/17 12:00 40 (Bell Mooney) Review of Systems ROS Limitations: Intubated (Bell Mooney) Physical Exam Gen: intubated, no acute distress HEENT:ventriculostomy drain in place at 5 cm H20, draining dark red CSF well. pupils equal, nonicteric sclera. ET tube in place Neck: soft, supple Musculoskeletal: no obvious deformities. moves right side spontaneously, left dense paresis Heart: regular rate rhythm Resp: clear, mechanically vented Neuro: slightly opens eyes, does not follow commands. CN: pupils equal, exam limited due to clinical condition Cerebellar: cannot assess due to clinical status Skin: warm, dry (Bell Mooney) Gen: intubated, no acute distress HEENT:ventriculostomy drain in place at 5 cm H20, draining dark red CSF well. pupils equal, nonicteric sclera. ET tube in place Neck: soft, supple Musculoskeletal: no obvious deformities. moves right side spontaneously, left dense paresis Heart: regular rate rhythm Resp: clear, mechanically vented Neuro: slightly opens eyes, does not follow commands. CN: pupils equal, exam limited due to clinical condition Cerebellar: cannot assess due to clinical status Skin: warm, dry (Andre Nixon MD) Medications Current Medications Current Medications Medications (Trade) Dose Ordered Sig/Jose Guadalupe Route PRN Reason Start Time Stop Time Status Last Admin Dose Admin Sodium Chloride (NS Flush) 2 ml UNSCH PRN IV FLUSH FLUSH AFTER USING IV ACCESS 06/15/17 05:15 Nicardipine HCl 25 mg/Sodium Chloride 250 ml @ 50 mls/hr TITRATE PRN IV Blood pressure management 06/15/17 06:15 06/18/17 00:01 Acetaminophen (Tylenol) 650 mg Q6H PRN PO PAIN 1-10 AND/OR FEVER >101F 06/15/17 06:30 Morphine Sulfate (Morphine Inj) 2 mg Q2H PRN IV PUSH PAIN SCALE 6 TO 10 06/15/17 06:30 06/16/17 23:41 Famotidine (Pepcid Inj) 10 mg Q12HR IV PUSH 06/15/17 09:00 06/18/17 08:38 Ondansetron HCl (Zofran Inj) 4 mg Q6H PRN IV PUSH NAUSEA OR VOMITING 06/15/17 06:30 Albuterol/ Ipratropium (Duoneb Neb) 1 ampule Q4HR NEB PRN INH WHEEZING 06/15/17 06:30 Miscellaneous Information 1 Q361D XX 06/15/17 06:30 06/15/17 06:30 Chlorhexidine Gluconate (Chlorhexidine 2% Cloth) 3 pack Taper DAILY@04 TOP 06/16/17 04:00 06/12/18 03:59 Chlorhexidine Gluconate (Chlorhexidine 2% Cloth) 3 pack UNSCH PRN TOP HYGIENIC CARE 06/15/17 06:30 Senna/Docusate Sodium ([place]-Colace) 1 tab BID PO 06/15/17 09:00 06/18/17 08:37 Magnesium Hydroxide (Milk Of Magnesia Liq) 30 ml Q12H PRN PO Mild constipation 06/15/17 06:30 Sennosides (Senokot) 17.2 mg Q12H PRN PO Moderate constipation 06/15/17 06:30 Bisacodyl (Dulcolax Supp) 10 mg DAILY PRN RECTAL SEVERE CONSITIPATION 06/15/17 06:30 Lactulose (Lactulose Liq) 30 ml DAILY PRN PO SEVERE CONSITIPATION 06/15/17 06:30 Chlorhexidine Gluconate (Peridex 0.12% Liq) 15 ml BID@08,20 MT 06/15/17 20:00 06/18/17 08:00 Propofol 100 ml @ 1.941 mls/ hr TITRATE PRN IV SEDATION 06/15/17 14:45 06/15/17 14:41 Norepinephrine Bitartrate 4 mg/ Sodium Chloride 250 ml @ 7.5 mls/hr TITRATE PRN IV Maintain MAP > 70 mmHg 06/15/17 21:45 06/15/17 19:00 Levetriacetam (Keppra) 500 mg Q12HR PO 06/17/17 11:30 06/18/17 08:37 Potassium Chloride 10 meq/ Lactated Ringer's 505 ml @ 42 mls/hr Q12H2M IV 06/17/17 13:15 06/17/17 13:15 Pravastatin Sodium (Pravachol) 40 mg HS PO 06/18/17 21:00 (Bell Mooney) Current Medications Current Medications Sodium Chloride (NS Flush) 2 ml UNSCH PRN IV FLUSH FLUSH AFTER USING IV ACCESS ; Start 06/15/17 at 05:15 Sodium Chloride 500 ml @ 500 mls/hr BOLUS ONCE IV ; Start 06/15/17 at 06:00; Stop 06/15/17 at 06:59; Status DC Nicardipine HCl 25 mg/Sodium Chloride 250 ml @ 50 mls/hr TITRATE PRN IV Blood pressure management Last administered on 06/19/17at 06:43; Start 06/15/17 at 06: 15 Pravastatin Sodium (Pravachol) 80 mg HS PO Last administered on 06/17/17at 23:23 ; Start 06/15/17 at 21:00; Stop 06/18/17 at 09:30; Status DC Levetriacetam 100 ml @ 400 mls/hr BOLUS ONCE IV Last administered on at 09:43; Start 06/15/17 at 06:30; Stop 06/15/17 at 06:44; Status DC Sodium Chloride 1,000 ml @ 100 mls/hr Q10H IV Last administered on 06/17/17at 07:29; Start 06/15/17 at 06:17; Stop 06/17/17 at 12:42; Status DC Acetaminophen (Tylenol) 650 mg Q6H PRN PO PAIN 1-10 AND/OR FEVER >101F; Start 06/15/17 at 06:30 Morphine Sulfate (Morphine Inj) 2 mg Q2H PRN IV PUSH PAIN SCALE 6 TO 10 Last administered on 06/19/17at 08:29; Start 06/15/17 at 06:30 Famotidine (Pepcid Inj) 10 mg Q12HR IV PUSH Last administered on 06/19/17at 08: 28; Start 06/15/17 at 09:00 Ondansetron HCl (Zofran Inj) 4 mg Q6H PRN IV PUSH NAUSEA OR VOMITING; Start at 06:30 Albuterol/ Ipratropium (Duoneb Neb) 1 ampule Q4HR NEB PRN INH WHEEZING; Start 06/15/17 at 06:30 Miscellaneous Information 1 Q361D XX Last administered on 06/15/17at 06:30; Start 06/15/17 at 06:30 Chlorhexidine Gluconate (Chlorhexidine 2% Cloth) 3 pack Taper DAILY@04 TOP ; Start 06/16/17 at 04:00; Stop 06/12/18 at 03:59 Chlorhexidine Gluconate (Chlorhexidine 2% Cloth) 3 pack UNSCH PRN TOP HYGIENIC CARE; Start 06/15/17 at 06:30 Senna/Docusate Sodium ([place]-Colace) 1 tab BID PO Last administered on at 08:28; Start 06/15/17 at 09:00 Magnesium Hydroxide (Milk Of Magnesia Liq) 30 ml Q12H PRN PO Mild constipation ; Start 06/15/17 at 06:30 Sennosides (Senokot) 17.2 mg Q12H PRN PO Moderate constipation; Start 06/15/17 at 06:30 Bisacodyl (Dulcolax Supp) 10 mg DAILY PRN RECTAL SEVERE CONSITIPATION; Start at 06:30 Lactulose (Lactulose Liq) 30 ml DAILY PRN PO SEVERE CONSITIPATION; Start at 06:30 Rocuronium [place] (Zemuron Inj) 100 mg BOLUS ONCE IV Last administered on at 14:34; Start 06/15/17 at 14:00; Stop 06/15/17 at 14:01; Status DC Midazolam HCl (Versed Inj) 5 mg ONCE ONCE IV PUSH Last administered on at 14:35; Start 06/15/17 at 14:00; Stop 06/15/17 at 14:01; Status DC Chlorhexidine Gluconate (Peridex 0.12% Liq) 15 ml BID@08,20 MT Last administered on 06/19/17at 08:29; Start 06/15/17 at 20:00 Propofol 100 ml @ 0 mls/hr TITRATE PRN IV SEDATION; Start 06/15/17 at 14:00; Status UNV Midazolam HCl (Versed Inj) 5 mg STK-MED ONCE .ROUTE ; Start 06/15/17 at 14:07; Stop 06/15/17 at 14:08; Status DC Rocuronium [place] (Zemuron Inj) 50 mg STK-MED ONCE .ROUTE ; Start 06/15/17 at 14:07; Stop 06/15/17 at 14:08; Status DC Propofol 100 ml @ 1.941 mls/ hr TITRATE PRN IV SEDATION Last administered on at 14:41; Start 06/15/17 at 14:45 Miscellaneous Information (RASS Change Order) 1 ea ONCE ONCE XX Last administered on 06/15/17at 14:45; Start 06/15/17 at 14:45; Stop 06/15/17 at 14:46 ; Status DC Norepinephrine Bitartrate 4 mg/ Sodium Chloride 250 ml @ 7.5 mls/hr TITRATE PRN IV Maintain MAP > 70 mmHg; Start 06/15/17 at 19:45; Stop 06/15/17 at 21:37; Status DC Norepinephrine Bitartrate 4 mg/ Sodium Chloride 250 ml @ 7.5 mls/hr TITRATE PRN IV Maintain MAP > 70 mmHg Last administered on 06/15/17at 19:00; Start at 21:45 Levetriacetam (Keppra) 500 mg Q12HR PO Last administered on 06/19/17at 08:28; Start 06/17/17 at 11:30 Potassium Chloride 20 meq/ Lactated Ringer's 1,010 ml @ 42 mls/hr Q24H IV ; Start 06/17/17 at 12:45; Stop 06/17/17 at 13:02; Status DC Potassium Chloride 10 meq/ Lactated Ringer's 505 ml @ 42 mls/hr Q12H2M IV Last administered on 06/19/17at 11:05; Start 06/17/17 at 13:15 Pravastatin Sodium (Pravachol) 40 mg HS PO Last administered on 06/18/17at 22:02 ; Start 06/18/17 at 21:00 Potassium Phosphate 15 mmol/ Sodium Chloride 155 ml @ 38.75 mls/ hr ONCE ONCE IV Last administered on 06/19/17at 08:50; Start 06/19/17 at 08:00; Stop at 11:59; Status DC Metoprolol Tartrate (Lopressor) 25 mg Q12HR PO Last administered on 06/19/17at 08:51; Start 06/19/17 at 09:00 (Andre Nixon MD) Medical Decision Making MDM Remarks 77 y/o female with large hemorrhagic stroke, she had evidence of hydrocephalus, she underwent placement of ventriculostomy drain 06/15/17 due to worsening mental status, now improving (Bell Mooney) Plan Plan Remarks cont ventriculostomy draining at 5 cm H20, cont critical care nonchemical dvt prophylaxis in view of ICH serial neuro checks Neurologist following (Bell Mooney) Attending Statement Continue ventriculostomy drainage of cerebrospinal fluid as well as intracranial pressure monitoring 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 Continue aggressive pulmonary toilette, nasotracheal suction, and breathing treatments with nebulizers. Daily PT and OT Nutrition. Tolerating Oral diet Renal. Continue to monitor closely urine output, BUN and creatinine Endocrine. Continue to Monitor serial Acu checks and SSI as needed in detail ID continue to monitor for signs of infection Continue Protonix for stress ulcer prophylaxis Continue Nickolas hose and SCD's for DVT prophylaxis The exam, history, and the medical decision-making described in the above note were completed with the assistance of the mid-level provider. I reviewed and agree with the findings presented. I attest that I had a [id number] encounter with the patient on the same day, and personally performed and documented my assessment and findings in the medical record. (Andre Nixon MD) Bell Mooney Jun 18, 2017 11:24 Andre Nixon MD Jun 19, 2017 17:04
--- NOTE | 2017-06-18 11:42 | HHI.CCPN ---
Subjective Remarks/Hospital Course Admission Diagnosis Parenchymal Brain Hemorrhage Diagnosis: (1) Hemorrhagic stroke Diagnosis: Principal (2) Respiratory failure (3) Hypertensive urgency Diagnosis: Principal (4) Encephalopathy, metabolic Diagnosis: Principal (5) CLAYTON (acute kidney injury) Diagnosis: Secondary Severely dehydrated, elderly woman presents confused to [facility] ED with hypertensive urgency and semi-acute right hemispheric parenchymal brain hemorrhage. Arrived from [facility] on cardene gtt and aphasic. Handness not determined yet. Unable to get ROS. No anticoagulants. INR normal. 06/16: Flaccid left side. Minimal eye opening. Moves right arm and leg to stimulation. Breathes over vent. ICP control, EVD draining well. 06/17: Moving both arms, right much stronger. More alert but episodic apnea spells. 06/18: No events over the night. Patient remains intubated, off sedation. She is currently on pressure support, 01/04, doing well. Awake, following commands. Son present at bedside. T-max of 99.6. I/O 250/1545. Review of systems is unobtainable since patient is intubated Objective Vital Signs Date Time Temp Pulse Resp B/P (MAP) Pulse Ox O2 Delivery O2 Flow Rate FiO2 06/18/17 08:22 35 06/18/17 08:22 98 06/18/17 08:00 98.5 100 20 142/74 (96) 06/18/17 07:00 Mechanical Ventilator 06/15/17 06:52 2.00 Intake and Output 06/18/17 06/18/17 06/19/17 08:00 16:00 00:00 Intake Total 0 ml Output Total 718 ml Balance -718 ml Result Diagram: 06/17/17 0630 06/18/17514 Imaging Last Impressions Head CT 06/15/17514 Signed Impressions: Service Date/Time: Thursday, June 15, 2017 05:59 - CONCLUSION: 1. 2.6 cm parenchymal hemorrhage in the posterior right temporal lobe with intraventricular extension. 2. There appears to be a small subarachnoid component over both parietal convexities. 3. Ventricular prominence with periventricular diminished attenuation characteristic of moderately severe small vessel ischemic demyelination. No midline shift Ariel Frederick MD Chest X-Ray 06/15/1715 Signed Impressions: Service Date/Time: Thursday, June 15, 2017 06:15 - CONCLUSION: 1. Minimal left perihilar scarring/fibrosis. Lungs are otherwise clear. 2. Fullness of the upper mediastinum I believe is due to some uncoiling of the thoracic aorta. Trachea remains midline. 3. Borderline prominent but well compensated heart. Ariel Frederick MD Head Magnetic Resonance Angiography 06/15/17 0000 Signed Impressions: Service Date/Time: Thursday, June 15, 2017 11:52 - CONCLUSION: MRA within normal limits. There is a parenchymal hemorrhage in the posterior right temporal lobe with intraventricular extension. Ivan Bahena MD Brain MRI 06/15/17 0000 Signed Impressions: Service Date/Time: Thursday, June 15, 2017 11:52 - CONCLUSION: 1. Large hemorrhage in the right posterior temporal lobe with rupture into the ventricular system and mild ventricular enlargement. Findings most characteristic of a hemorrhagic infarct. On followup exam would recommend contrast to exclude an enhancing underlying lesion. 2. Moderate chronic ischemic changes in periventricular white matter. No significant midline shift. Ivan Bahena MD Objective Remarks General - elderly lady, intubated, awake, ill-appearing HEENT - pupils equal, reactive, sclerae anicteric, neck supple, no nuchal rigidity, neck veins not distended, no carotid bruit, + ETT, + EVD CV - regular S1, S2, no murmurs Chest - clear b/l, good air entry, no wheezes Abdomen - soft, non-tender, non-distended, BS decreased, no hepatomegaly, no splenomegaly Skin - no rashes, no cyanosis Extremities - warm and well perfused, no edema, + peripheral pulses, no clubbing Neuro -awake, intubated, follows commands, nods to questions, no facial asymmetry, pupils equal and reactive, lower extremities weaker than upper extremities, squeezes fingers bilaterally, wiggles toes right greater than left A/P Problem List: (1) Hemorrhagic stroke ICD Code: I61.9 - Nontraumatic intracerebral hemorrhage, unspecified Status: Acute (2) Hypertensive urgency ICD Code: I16.0 - Hypertensive urgency Status: Acute (3) Encephalopathy, metabolic ICD Code: G93.41 - Metabolic encephalopathy Status: Acute (4) CLAYTON (acute kidney injury) ICD Code: N17.9 - Acute kidney failure, unspecified Status: Acute Assessment and Plan 1. Right temporal intraparenchymal hemorrhage status post EVD placement 2. Extensive emergency 3. Acute respiratory failure due to inability to protect the airway 4. Acute encephalopathy 1. Continue neuro checks. 2. Maintenance iv fluid, isotonic. 3. Continue Cardene gtt to keep SBP < 160. 4. On pressure support / doing well. No episodes of apnea noted so far. If she continues to tolerate extubation later today 5. If she does not come off the ventilator today we will start tube feeds 6. No chemical DVT px. 7. SCDs. 8. Appreciate neurology and neurosurgery consultations 9. GI prophylaxis Overall impression: Patient is critically ill with acute brain hemorrhage complicated by dehydration, rhabdomyolysis, kidney injury, and hypertensive urgency. Initially was deteriorating rapidly and required intubation and mechanical ventilation. Prognosis guarded. Discussed in detail with son present at bedside. Matt Trammell MD Jun 18, 2017 11:42
[2017-06-18] MEDS: MORPHINE SULFATE 2 MG/ML SYRINGE IV PUSH PRN (17:08)
[2017-06-18] MEDS: PRAVASTATIN SOD 40 MG TAB PO SCH (22:02)
[2017-06-19] VITALS (14 sets, daily range): BP systolic 101–142; BP diastolic 55–69; PULSE 78–117; RESP 12–22; TEMP 97.8–100.2; O2SAT 92–100
[2017-06-19] MEDS: niCARdipine INJ 25 MG in SODIUM CHLOR 0.9% 250 ML INJ 240 ML IV PRN ×3 (00:51→06:43)
[2017-06-19] MEDS: CHLORHEXIDINE GLUCONATE 2 % 1 PACK (2 CLOTHS) TOP SCH (03:52)
[2017-06-19 05:37] LABS: BASOPHIL % 0.2 % (0.0-2.0); HEMATOCRIT 33.3 % (35.0-46.0); HEMOGLOBIN 11.4 GM/DL (11.6-15.3); LYMPH % 11.3 % (9.0-44.0); LYMPHOCYTE # 1.5 TH/MM3 (1.0-4.8); MEAN CELL VOLUME 89.7 FL (80.0-100.0); MEAN CORPUSCULAR HEMOGLOBIN 30.7 PG (27.0-34.0); MEAN CORPUSCULAR HGB CONC 34.3 % (32.0-36.0); MEAN PLATELET VOLUME 8.7 FL (7.0-11.0); MONO % 10.7 % (0.0-8.0); MONOCYTE # 1.4 TH/MM3 (0-0.9); NEUT % 77.8 % (16.0-70.0); PLATELET COUNT 166 TH/MM3 (150-450); RED BLOOD COUNT 3.72 MIL/MM3 (4.00-5.30); RED CELL DISTRIBUTION WIDTH 13.5 % (11.6-17.2); WHITE BLOOD COUNT 12.9 TH/MM3 (4.0-11.0)
[2017-06-19 05:58] LABS: ALBUMIN 2.1 GM/DL (3.4-5.0); AST (GOT) 24 U/L (15-37); BICARBONATE 21.6 MEQ/L (21.0-32.0); BLOOD UREA NITROGEN 33 MG/DL (7-18); CALCIUM 7.5 MG/DL (8.5-10.1); CHLORIDE 121 MEQ/L (98-107); CREATININE 0.91 MG/DL (0.50-1.00); GLOMERULAR FILTRATION RATE 60 ML/MIN (>89); SODIUM (NA) 152 MEQ/L (136-145)
[2017-06-19 06:02] LABS: ALKALINE PHOSPHATASE 91 U/L (45-117); ALT (GPT) 25 U/L (10-53); GLUCOSE,RANDOM 136 MG/DL (74-106); MAGNESIUM 2.3 MG/DL (1.5-2.5); PHOSPHORUS 1.8 MG/DL (2.5-4.9); TOTAL BILIRUBIN ADULT 1.5 MG/DL (0.2-1.0); TOTAL PROTEIN 5.7 GM/DL (6.4-8.2)
--- NOTE | 2017-06-19 07:48 | HHI.CCPN ---
Subjective Remarks/Hospital Course Admission Diagnosis Parenchymal Brain Hemorrhage Diagnosis: (1) Hemorrhagic stroke Diagnosis: Principal (2) Respiratory failure (3) Hypertensive urgency Diagnosis: Principal (4) Encephalopathy, metabolic Diagnosis: Principal (5) CLAYTON (acute kidney injury) Diagnosis: Secondary Severely dehydrated, elderly woman presents confused to [facility] ED with hypertensive urgency and semi-acute right hemispheric parenchymal brain hemorrhage. Arrived from [facility] on cardene gtt and aphasic. Handness not determined yet. Unable to get ROS. No anticoagulants. INR normal. 06/16: Flaccid left side. Minimal eye opening. Moves right arm and leg to stimulation. Breathes over vent. ICP control, EVD draining well. 06/17: Moving both arms, right much stronger. More alert but episodic apnea spells. 06/18: No events over the night. Patient remains intubated, off sedation. She is currently on pressure support, 01/04, doing well. Awake, following commands. Son present at bedside. T-max of 99.6. I/O 250/1545. 06/19: No events over the night. Patient did well yesterday on pressure support , but was not able to be extubated secondary to no cuff leak. She remains on Cardene currently at 9.5 mg/h. Afebrile with a T-max of 99.4. Negative fluid balance. Review of systems is unobtainable since patient is intubated Objective Vital Signs Date Time Temp Pulse Resp B/P (MAP) Pulse Ox O2 Delivery O2 Flow Rate FiO2 06/19/17 07:00 98 Mechanical Ventilator 35 06/19/17 06:43 112 137/63 06/19/17 04:00 99.0 12 Intake and Output 06/19/17 06/19/17 06/20/17 08:00 16:00 00:00 Intake Total 560 ml Output Total 555 ml Balance 5 ml Result Diagram: 06/19/17 0435 06/19/17 0435 Imaging Last Impressions Head CT 06/15/17 0515 Signed Impressions: Service Date/Time: Thursday, June 15, 2017 05:59 - CONCLUSION: 1. 2.6 cm parenchymal hemorrhage in the posterior right temporal lobe with intraventricular extension. 2. There appears to be a small subarachnoid component over both parietal convexities. 3. Ventricular prominence with periventricular diminished attenuation characteristic of moderately severe small vessel ischemic demyelination. No midline shift Ariel Frederick MD Chest X-Ray 06/15/17 0515 Signed Impressions: Service Date/Time: Thursday, June 15, 2017 06:15 - CONCLUSION: 1. Minimal left perihilar scarring/fibrosis. Lungs are otherwise clear. 2. Fullness of the upper mediastinum I believe is due to some uncoiling of the thoracic aorta. Trachea remains midline. 3. Borderline prominent but well compensated heart. Ariel Frederick MD Head Magnetic Resonance Angiography 06/15/17 0000 Signed Impressions: Service Date/Time: Thursday, June 15, 2017 11:52 - CONCLUSION: MRA within normal limits. There is a parenchymal hemorrhage in the posterior right temporal lobe with intraventricular extension. Ivan Bahena MD Brain MRI 06/15/17 0000 Signed Impressions: Service Date/Time: Thursday, June 15, 2017 11:52 - CONCLUSION: 1. Large hemorrhage in the right posterior temporal lobe with rupture into the ventricular system and mild ventricular enlargement. Findings most characteristic of a hemorrhagic infarct. On followup exam would recommend contrast to exclude an enhancing underlying lesion. 2. Moderate chronic ischemic changes in periventricular white matter. No significant midline shift. Ivan Bahena MD Objective Remarks General - elderly lady, intubated, sleeping, easily arousable, ill-appearing HEENT - pupils are equal and reactive, sclerae are anicteric, neck is supple, no rigidity, no JVD, no carotid bruit, + ETT, + OGT, + EVD CV - regular heart sounds, no murmurs, rubs or gallops Chest - clear b/l, good air entry, no wheezes Abdomen - soft, not distended, non-tender, BS decreased, no hepatomegaly, no splenomegaly Skin - no rashes, no cyanosis Extremities - warm, no edema, + peripheral pulses, no clubbing Neuro - sleeping, easily arousable, intubated, follows some commands, nods to some questions, no facial asymmetry, pupils equal and reactive, lower extremities weaker than upper extremities, this morning does not consistently follow commands A/P Problem List: (1) Hemorrhagic stroke ICD Code: I61.9 - Nontraumatic intracerebral hemorrhage, unspecified Status: Acute (2) Hypertensive urgency ICD Code: I16.0 - Hypertensive urgency Status: Acute (3) Encephalopathy, metabolic ICD Code: G93.41 - Metabolic encephalopathy Status: Acute (4) CLAYTON (acute kidney injury) ICD Code: N17.9 - Acute kidney failure, unspecified Status: Acute Assessment and Plan 1. Right temporal intraparenchymal hemorrhage status post EVD placement 2. Hypertensive emergency -still requiring Cardene infusion 3. Acute respiratory failure due to inability to protect the airway -on minimal FiO2 requirements 4. Acute encephalopathy -improved since admission 5. Mild hypernatremia -unchanged 6. Hypophosphatemia 7. Hyperlipidemia 1. Continue neuro checks. 2. Maintenance isotonic iv fluid. 3. Continue Cardene gtt to keep SBP < 160. 4. Start p.o. antihypertensive meds and we will try to titrate Cardene down 5. On Keppra prophylaxis 6. On PRVC, PIP 20, patient synchronized with vent, no auto PEEP 7. We will attempt SBT later today and if tolerated and positive cuff leak will extubate 8. Start tube feeds if she remains on the vent 9. No chemical DVT px. 10. SCDs. 11. Appreciate neurology and neurosurgery consultations 12. GI prophylaxis Overall impression: Patient is critically ill with acute brain hemorrhage complicated by dehydration, rhabdomyolysis, kidney injury, and hypertensive urgency. Initially was deteriorating rapidly and required intubation and mechanical ventilation. Prognosis guarded. No family present at bedside. Matt Trammell MD Jun 19, 2017 07:48
[2017-06-19] MEDS ORDERED: POTASSIUM PHOSPHATE INJ 15 MMOL in SODIUM CHLORIDE 0.9% INJ 150 ML IV ONE (08:00)
[2017-06-19] MEDS: DOCUSATE SODIUM 50 MG/SENNA 8.6 MG TAB PO SCH ×2 (08:28→21:24)
[2017-06-19] MEDS: levETIRAcetam 500 MG TAB PO SCH ×2 (08:28→21:24)
[2017-06-19] MEDS: FAMOTIDINE 20 MG/2 ML VIAL IV PUSH SCH ×2 (08:28→21:24)
[2017-06-19] MEDS: CHLORHEXIDINE 0.12% (ORAL KIT) 15 ML CUP MT SCH ×2 (08:29→20:00)
[2017-06-19] MEDS: MORPHINE SULFATE 2 MG/ML SYRINGE IV PUSH PRN (08:29)
[2017-06-19] MEDS: METOPROLOL TARTRATE 25 MG TAB PO SCH ×2 (08:51→21:25)
--- NOTE | 2017-06-19 10:02 | HHI.PR ---
Review/Management Diagnosis/Plan: (1) Intracranial hemorrhage ICD Codes: I62.9 - Nontraumatic intracranial hemorrhage, unspecified Status: Acute Plan: rt o-p ich large spontaneous, likely hypertensive limited current exam due to events over the past few hours mra brain- nml mri brain images reviewed joseppr added recs neuro stable; limited exam this am 2/2 pt receiving mso4 icp 0-3 bp stable reduce lipid dose extubate per ccm/nsx (2) Encephalopathy, metabolic ICD Codes: G93.41 - Metabolic encephalopathy Status: Acute Plan: due to ich (3) Hypertensive emergency ICD Codes: I16.1 - Hypertensive emergency Status: Acute Plan: improved on bp meds (4) CLAYTON (acute kidney injury) ICD Codes: N17.9 - Acute kidney failure, unspecified Status: Acute Subjective Subjective Comments No acute events reported Active Medications Current Medications Medications (Trade) Dose Ordered Sig/Jose Guadalupe Route Start Time Stop Time Status Last Admin (NS Flush) 2 ml UNSCH PRN IV FLUSH 06/15/17 05:15 Nicardipine HCl 25 mg/Sodium Chloride 250 ml @ 50 mls/hr TITRATE PRN IV 06/15/17 06:15 06/19/17 06:43 (Tylenol) 650 mg Q6H PRN PO 06/15/17 06:30 (Morphine Inj) 2 mg Q2H PRN IV PUSH 06/15/17 06:30 06/19/17 08:29 (Pepcid Inj) 10 mg Q12HR IV PUSH 06/15/17 09:00 06/19/17 08:28 (Zofran Inj) 4 mg Q6H PRN IV PUSH 06/15/17 06:30 (Duoneb Neb) 1 ampule Q4HR NEB PRN INH 06/15/17 06:30 Miscellaneous Information 1 Q361D XX 06/15/17 06:30 06/15/17 06:30 (Chlorhexidine 2% Cloth) 3 pack Taper DAILY@04 TOP 06/16/17 04:00 06/12/18 03:59 (Chlorhexidine 2% Cloth) 3 pack UNSCH PRN TOP 06/15/17 06:30 (Fallon-Colace) 1 tab BID PO 06/15/17 09:00 06/19/17 08:28 (Milk Of Magnesia Liq) 30 ml Q12H PRN PO 06/15/17 06:30 (Senokot) 17.2 mg Q12H PRN PO 06/15/17 06:30 (Dulcolax Supp) 10 mg DAILY PRN RECTAL 06/15/17 06:30 (Lactulose Liq) 30 ml DAILY PRN PO 06/15/17 06:30 (Peridex 0.12% Liq) 15 ml BID@08,20 MT 06/15/17 20:00 06/19/17 08:29 Propofol 100 ml @ 1.941 mls/ hr TITRATE PRN IV 06/15/17 14:45 06/15/17 14:41 Norepinephrine Bitartrate 4 mg/ Sodium Chloride 250 ml @ 7.5 mls/hr TITRATE PRN IV 06/15/17 21:45 06/15/17 19:00 (Keppra) 500 mg Q12HR PO 06/17/17 11:30 06/19/17 08:28 Potassium Chloride 10 meq/ Lactated Ringer's 505 ml @ 42 mls/hr Q12H2M IV 06/17/17 13:15 06/18/17 22:43 (Pravachol) 40 mg HS PO 06/18/17 21:00 06/18/17 22:02 Potassium Phosphate 15 mmol/ Sodium Chloride 155 ml @ 38.75 mls/ hr ONCE ONCE IV 06/19/17 08:00 06/19/17 11:59 06/19/17 08:50 (Lopressor) 25 mg Q12HR PO 06/19/17 09:00 06/19/17 08:51 Allergies Allergies Coded Allergies No Known Allergies (Unverified Adverse Reaction, Unknown, 06/15/17) Review of Systems All other ROS: Unable to obtain Exam I&O / VS Vital Signs Date Time Temp Pulse Resp B/P (MAP) Pulse Ox O2 Delivery O2 Flow Rate FiO2 06/19/17 08:15 96 35 06/19/17 08:00 100.2 117 17 139/63 (88) 100 06/19/17 08:00 35 06/19/17 07:00 98 Mechanical Ventilator 35 06/19/17 06:43 112 137/63 06/19/17 06:00 105 06/19/17 04:00 35 06/19/17 04:00 99.0 103 12 137/65 (89) 97 06/19/17 04:00 103 06/19/17 03:53 103 136/65 06/19/17 02:00 111 06/19/17 00:51 101 135/74 06/19/17 00:00 111 06/19/17 00:00 35 06/19/17 00:00 98.9 111 12 142/69 (93) 98 06/18/17 23:49 99 35 06/18/17 22:06 112 149/68 06/18/17 22:00 111 06/18/17 20:00 99.4 109 11 135/67 (89) 98 06/18/17 20:00 35 06/18/17 20:00 109 06/18/17 19:59 98 35 06/18/17 19:00 98 Mechanical Ventilator 35 06/18/17 18:45 111 144/72 06/18/17 16:46 100 35 06/18/17 16:00 98.4 118 16 135/74 (94) 06/18/17 16:00 35 06/18/17 12:16 97 35 06/18/17 12:00 97.3 82 17 160/81 (107) 100 06/18/17 12:00 35 Exam Comments intubated, just got morphine, ou 3mm sluggish, grimaces, limited 2/2 hypersomnolence, was maguire rt>left per rn Objective Micro and Labs Laboratory Tests Test 06/19/17 04:35 White Blood Count 12.9 Red Blood Count 3.72 Hemoglobin 11.4 Hematocrit 33.3 Mean Corpuscular Volume 89.7 Mean Corpuscular Hemoglobin 30.7 Mean Corpuscular Hemoglobin Concent 34.3 Red Cell Distribution Width 13.5 Platelet Count 166 Mean Platelet Volume 8.7 Neutrophils (%) (Auto) 77.8 Lymphocytes (%) (Auto) 11.3 Monocytes (%) (Auto) 10.7 Eosinophils (%) (Auto) 0.0 Basophils (%) (Auto) 0.2 Neutrophils # (Auto) 10.0 Lymphocytes # (Auto) 1.5 Monocytes # (Auto) 1.4 Eosinophils # (Auto) 0.0 Basophils # (Auto) 0.0 CBC Comment DIFF FINAL Differential Comment Blood Urea Nitrogen 33 Creatinine 0.91 Random Glucose 136 Total Protein 5.7 Albumin 2.1 Calcium Level 7.5 Phosphorus Level 1.8 Magnesium Level 2.3 Alkaline Phosphatase 91 Aspartate Amino Transf (AST/SGOT) 24 Alanine Aminotransferase (ALT/SGPT) 25 Total Bilirubin 1.5 Sodium Level 152 Potassium Level 3.8 Chloride Level 121 Carbon Dioxide Level 21.6 Anion Gap 9 Estimat Glomerular Filtration Rate 60 Date/Time Source Procedure Growth Status 06/15/17 05:26 Blood Peripheral Aerobic Blood Culture - Preliminary NO GROWTH IN 3 DAYS Resulted 06/15/17 05:26 Blood Peripheral Anaerobic Blood Culture - Preliminary NO GROWTH IN 3 DAYS Resulted 06/15/17 15:15 Cerebral Spinal Fluid Shunt Fluid Gram Stain - Final Complete 06/15/17 15:15 Cerebral Spinal Fluid Shunt Fluid CSF Culture - Final NO GROWTH IN 72 HOURS Complete 06/18/17 05:40 Sputum Endotracheal Gram Stain - Final Resulted 06/18/17 05:40 Sputum Endotracheal Sputum Culture Pending Resulted Jose Cruz Crowell MD Jun 19, 2017 10:02
--- NOTE | 2017-06-19 10:25 | HHI.NSPN ---
(Bell Mooney) Note Status Status: Progress Note (Bell Mooney) Interval History Interval History 77 year old female with large hemorrhage stroke with hydrocephalus, worsening mental status, patient became severely obtunded difficult to arouse, she underwent placement of ventriculostomy drain 06/15/1706/16: ventriculostomy draining well, intubated, opening eyes and moving right side spontaneously. 06/18: ventriculostomy draining well, remains intubated, opens eyes, tracks, moves right side, stable left paresis 06/19: ventriculostomy draining well, CSF still bloody, dark red. opens eyes and moves right side spontaneously (Bell Mooney) Labs, Micro, & Vital Signs Results Date Time Temp Pulse Resp B/P (MAP) Pulse Ox O2 Delivery O2 Flow Rate FiO2 06/19/17 08:15 96 35 06/19/17 08:00 100.2 117 17 139/63 (88) 100 06/19/17 08:00 35 06/19/17 07:00 98 Mechanical Ventilator 35 06/19/17 06:43 112 137/63 06/19/17 06:00 105 06/19/17 04:00 35 06/19/17 04:00 99.0 103 12 137/65 (89) 97 06/19/17 04:00 103 06/19/17 03:53 103 136/65 06/19/17 02:00 111 06/19/17 00:51 101 135/74 06/19/17 00:00 111 06/19/17 00:00 35 06/19/17 00:00 98.9 111 12 142/69 (93) 98 06/18/17 23:49 99 35 06/18/17 22:06 112 149/68 06/18/17 22:00 111 06/18/17 20:00 99.4 109 11 135/67 (89) 98 06/18/17 20:00 35 06/18/17 20:00 109 06/18/17 19:59 98 35 06/18/17 19:00 98 Mechanical Ventilator 35 06/18/17 18:45 111 144/72 06/18/17 16:46 100 35 06/18/17 16:00 98.4 118 16 135/74 (94) 06/18/17 16:00 35 06/18/17 12:16 97 35 06/18/17 12:00 97.3 82 17 160/81 (107) 100 06/18/17 12:00 35 Constitutional Vital Signs Date Time Temp Pulse Resp B/P (MAP) Pulse Ox O2 Delivery O2 Flow Rate FiO2 06/19/17 08:15 96 35 06/19/17 08:00 100.2 117 17 139/63 (88) 100 06/19/17 08:00 35 06/19/17 07:00 98 Mechanical Ventilator 35 06/19/17 06:43 112 137/63 06/19/17 06:00 105 06/19/17 04:00 35 06/19/17 04:00 99.0 103 12 137/65 (89) 97 06/19/17 04:00 103 06/19/17 03:53 103 136/65 06/19/17 02:00 111 06/19/17 00:51 101 135/74 06/19/17 00:00 111 06/19/17 00:00 35 06/19/17 00:00 98.9 111 12 142/69 (93) 98 06/18/17 23:49 99 35 06/18/17 22:06 112 149/68 06/18/17 22:00 111 06/18/17 20:00 99.4 109 11 135/67 (89) 98 06/18/17 20:00 35 06/18/17 20:00 109 06/18/17 19:59 98 35 06/18/17 19:00 98 Mechanical Ventilator 35 06/18/17 18:45 111 144/72 06/18/17 16:46 100 35 06/18/17 16:00 98.4 118 16 135/74 (94) 06/18/17 16:00 35 06/18/17 12:16 97 35 06/18/17 12:00 97.3 82 17 160/81 (107) 100 06/18/17 12:00 35 (Bell Mooney) Physical Exam Gen: intubated, no acute distress HEENT:ventriculostomy drain in place at 5 cm H20, draining dark red CSF well. pupils equal, nonicteric sclera. ET tube in place Neck: soft, supple Musculoskeletal: no obvious deformities. moves right side spontaneously, left dense paresis Heart: regular rate rhythm Resp: clear, mechanically vented Neuro: slightly opens eyes, does not follow commands. CN: pupils equal, exam limited due to clinical condition Cerebellar: cannot assess due to clinical status Skin: warm, dry (Bell Mooney) Gen: intubated, no acute distress HEENT:ventriculostomy drain in place at 5 cm H20, draining dark red CSF well. pupils equal, nonicteric sclera. ET tube in place Neck: soft, supple Musculoskeletal: no obvious deformities. moves right side spontaneously, left dense paresis Heart: regular rate rhythm Resp: clear, mechanically vented Neuro: slightly opens eyes, does not follow commands. CN: pupils equal, exam limited due to clinical condition Cerebellar: cannot assess due to clinical status Skin: warm, dry (Andre Nixon MD) Medications Current Medications Current Medications Medications (Trade) Dose Ordered Sig/Jose Guadalupe Route PRN Reason Start Time Stop Time Status Last Admin Dose Admin Sodium Chloride (NS Flush) 2 ml UNSCH PRN IV FLUSH FLUSH AFTER USING IV ACCESS 06/15/17 05:15 Nicardipine HCl 25 mg/Sodium Chloride 250 ml @ 50 mls/hr TITRATE PRN IV Blood pressure management 06/15/17 06:15 06/19/17 06:43 Acetaminophen (Tylenol) 650 mg Q6H PRN PO PAIN 1-10 AND/OR FEVER >101F 06/15/17 06:30 Morphine Sulfate (Morphine Inj) 2 mg Q2H PRN IV PUSH PAIN SCALE 6 TO 10 06/15/17 06:30 06/19/17 08:29 Famotidine (Pepcid Inj) 10 mg Q12HR IV PUSH 06/15/17 09:00 06/19/17 08:28 Ondansetron HCl (Zofran Inj) 4 mg Q6H PRN IV PUSH NAUSEA OR VOMITING 06/15/17 06:30 Albuterol/ Ipratropium (Duoneb Neb) 1 ampule Q4HR NEB PRN INH WHEEZING 06/15/17 06:30 Miscellaneous Information 1 Q361D XX 3/16/18 06:30 06/15/17 06:30 Chlorhexidine Gluconate (Chlorhexidine 2% Cloth) 3 pack Taper DAILY@04 TOP 06/16/17 04:00 06/12/18 03:59 Chlorhexidine Gluconate (Chlorhexidine 2% Cloth) 3 pack UNSCH PRN TOP HYGIENIC CARE 06/15/17 06:30 Senna/Docusate Sodium (Fallon-Colace) 1 tab BID PO 06/15/17 09:00 06/19/17 08:28 Magnesium Hydroxide (Milk Of Magnesia Liq) 30 ml Q12H PRN PO Mild constipation 06/15/17 06:30 Sennosides (Senokot) 17.2 mg Q12H PRN PO Moderate constipation 06/15/17 06:30 Bisacodyl (Dulcolax Supp) 10 mg DAILY PRN RECTAL SEVERE CONSITIPATION 06/15/17 06:30 Lactulose (Lactulose Liq) 30 ml DAILY PRN PO SEVERE CONSITIPATION 06/15/17 06:30 Chlorhexidine Gluconate (Peridex 0.12% Liq) 15 ml BID@08,20 MT 06/15/17 20:00 06/19/17 08:29 Propofol 100 ml @ 1.941 mls/ hr TITRATE PRN IV SEDATION 06/15/17 14:45 06/15/17 14:41 Norepinephrine Bitartrate 4 mg/ Sodium Chloride 250 ml @ 7.5 mls/hr TITRATE PRN IV Maintain MAP > 70 mmHg 06/15/17 21:45 06/15/17 19:00 Levetriacetam (Keppra) 500 mg Q12HR PO 06/17/17 11:30 06/19/17 08:28 Potassium Chloride 10 meq/ Lactated Ringer's 505 ml @ 42 mls/hr Q12H2M IV 06/17/17 13:15 06/18/17 22:43 Pravastatin Sodium (Pravachol) 40 mg HS PO 06/18/17 21:00 06/18/17 22:02 Potassium Phosphate 15 mmol/ Sodium Chloride 155 ml @ 38.75 mls/ hr ONCE ONCE IV 06/19/17 08:00 06/19/17 11:59 06/19/17 08:50 Metoprolol Tartrate (Lopressor) 25 mg Q12HR PO 06/19/17 09:00 06/19/17 08:51 (Bell Mooney) Medical Decision Making MDM Remarks 77 y/o female with large hemorrhagic stroke, she had evidence of hydrocephalus, she underwent placement of ventriculostomy drain 06/15/17 due to worsening mental status, now improving (Bell Mooney) Plan Plan Remarks cont ventriculostomy draining at 5 cm H20, CSF still very bloody cont critical care nonchemical dvt prophylaxis in view of ICH serial neuro checks Neurologist following (Bell Mooney) Attending Statement Continue ventriculostomy drainage of cerebrospinal fluid as well as intracranial pressure monitoring 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 Continue aggressive pulmonary toilette, nasotracheal suction, and breathing treatments with nebulizers. Daily PT and OT Nutrition. Tolerating Oral diet Renal. Continue to monitor closely urine output, BUN and creatinine Endocrine. Continue to Monitor serial Acu checks and SSI as needed in detail ID continue to monitor for signs of infection Continue Protonix for stress ulcer prophylaxis Continue Nickolas hose and SCD's for DVT prophylaxis (Andre Nixon MD) Bell Mooney Jun 19, 2017 10:25 Andre Nixon MD Jun 19, 2017 17:12
[2017-06-19] MEDS: POTASSIUM CHLORIDE IV SCH ×2 (11:05→22:32)
[2017-06-19] MEDS: LACTATED RINGER S IV SCH ×2 (11:05→22:32)
[2017-06-19] MEDS: PRAVASTATIN SOD 40 MG TAB PO SCH (21:24)
[2017-06-20] VITALS (18 sets, daily range): BP systolic 136–172; BP diastolic 68–85; PULSE 64–96; RESP 12–26; TEMP 97.9–100; O2SAT 91–97
[2017-06-20] MEDS: CHLORHEXIDINE GLUCONATE 2 % 1 PACK (2 CLOTHS) TOP SCH (04:00)
--- NOTE | 2017-06-20 05:57 | RADRPT ---
EXAM DATE/TIME: 06/20/2017 04:35 [place] COMPARISON: CHEST SINGLE AP, June 15, 2017, 17:58. INDICATIONS : Shortness of breath. MEDICAL HISTORY : CVA SURGICAL HISTORY : None. ENCOUNTER: Subsequent ACUITY: 4 - 6 days PAIN SCORE: Non-responsive. LOCATION: Bilateral chest FINDINGS: ET tube tip is directed at the orifice of the right bronchus. Gastric tube traverses the field-of-vi ew. Improved aeration of the left lung with persistent consolidation in the left lower lobe and good aeration of the mid and upper lung. Patchy area of infiltrate in the right infrahilar region is a n ew finding. CONCLUSION: 1. ET tube tip is directed at the orifice of the right main bronchus and needs to be withdrawn 2.5 cm . 2. The right lung is better aerated than on prior examination, but there is left lower lobe consolida tion. 3. Interval development of non-consolidative infiltrate in the right infrahilar region. Brandon Vaughn MD on June 20, 2017 at 5:53 Board Certified Radiologist. This report was verified electronically.
[2017-06-20 06:05] LABS: AUTOMATED NEUTROPHIL # 9.9 TH/MM3 (1.8-7.7); BASOPHIL % 0.2 % (0.0-2.0); EOSINOPHIL % 0.1 % (0.0-4.0); HEMATOCRIT 32.8 % (35.0-46.0); HEMOGLOBIN 11.1 GM/DL (11.6-15.3); LYMPH % 10.9 % (9.0-44.0); LYMPHOCYTE # 1.4 TH/MM3 (1.0-4.8); MEAN CELL VOLUME 90.4 FL (80.0-100.0); MEAN CORPUSCULAR HEMOGLOBIN 30.5 PG (27.0-34.0); MEAN CORPUSCULAR HGB CONC 33.7 % (32.0-36.0); MEAN PLATELET VOLUME 8.5 FL (7.0-11.0); MONOCYTE # 1.4 TH/MM3 (0-0.9); NEUT % 77.8 % (16.0-70.0); PLATELET COUNT 159 TH/MM3 (150-450); RED BLOOD COUNT 3.63 MIL/MM3 (4.00-5.30); RED CELL DISTRIBUTION WIDTH 13.5 % (11.6-17.2); WHITE BLOOD COUNT 12.7 TH/MM3 (4.0-11.0)
[2017-06-20 06:39] LABS: ALKALINE PHOSPHATASE 131 U/L (45-117); ALT (GPT) 45 U/L (10-53); AST (GOT) 86 U/L (15-37); BICARBONATE 22.7 MEQ/L (21.0-32.0); BLOOD UREA NITROGEN 38 MG/DL (7-18); CALCIUM 7.9 MG/DL (8.5-10.1); CHLORIDE 124 MEQ/L (98-107); CREATININE 1.02 MG/DL (0.50-1.00); GLOMERULAR FILTRATION RATE 52 ML/MIN (>89); GLUCOSE,RANDOM 172 MG/DL (74-106); MAGNESIUM 2.2 MG/DL (1.5-2.5); SODIUM (NA) 155 MEQ/L (136-145); TOTAL BILIRUBIN ADULT 1.2 MG/DL (0.2-1.0); TOTAL PROTEIN 5.7 GM/DL (6.4-8.2)
--- NOTE | 2017-06-20 07:21 | HHI.PR ---
Review/Management Diagnosis/Plan: (1) Intracranial hemorrhage ICD Codes: I62.9 - Nontraumatic intracranial hemorrhage, unspecified Status: Acute Plan: rt o-p ich large spontaneous, likely hypertensive limited current exam due to events over the past few hours mra brain- nml mri brain images reviewed francesco added recs neuro stable consider repeat ct brain icp monitor could be dc'd bp stable extubate per ccm/nsx (2) Encephalopathy, metabolic ICD Codes: G93.41 - Metabolic encephalopathy Status: Acute Plan: due to ich (3) Hypertensive emergency ICD Codes: I16.1 - Hypertensive emergency Status: Acute Plan: improved on bp meds (4) CLAYTON (acute kidney injury) ICD Codes: N17.9 - Acute kidney failure, unspecified Status: Acute Subjective Subjective Comments No acute events reported Active Medications Current Medications Medications (Trade) Dose Ordered Sig/Jose Guadalupe Route Start Time Stop Time Status Last Admin (NS Flush) 2 ml UNSCH PRN IV FLUSH 06/15/17 05:15 Nicardipine HCl 25 mg/Sodium Chloride 250 ml @ 50 mls/hr TITRATE PRN IV 06/15/17 06:15 06/19/17 06:43 (Tylenol) 650 mg Q6H PRN PO 06/15/17 06:30 (Morphine Inj) 2 mg Q2H PRN IV PUSH 06/15/17 06:30 06/19/17 08:29 (Pepcid Inj) 10 mg Q12HR IV PUSH 06/15/17 09:00 06/19/17 21:24 (Zofran Inj) 4 mg Q6H PRN IV PUSH 06/15/17 06:30 (Duoneb Neb) 1 ampule Q4HR NEB PRN INH 06/15/17 06:30 Miscellaneous Information 1 Q361D XX 06/15/17 06:30 06/15/17 06:30 (Chlorhexidine 2% Cloth) 3 pack Taper DAILY@04 TOP 06/16/17 04:00 06/12/18 03:59 06/20/17 04:00 (Chlorhexidine 2% Cloth) 3 pack UNSCH PRN TOP 06/15/17 06:30 (Fallon-Colace) 1 tab BID PO 06/15/17 09:00 06/19/17 21:24 (Milk Of Magnesia Liq) 30 ml Q12H PRN PO 06/15/17 06:30 (Senokot) 17.2 mg Q12H PRN PO 06/15/17 06:30 (Dulcolax Supp) 10 mg DAILY PRN RECTAL 06/15/17 06:30 (Lactulose Liq) 30 ml DAILY PRN PO 06/15/17 06:30 (Peridex 0.12% Liq) 15 ml BID@08,20 MT 06/15/17 20:00 06/19/17 20:00 Propofol 100 ml @ 1.941 mls/ hr TITRATE PRN IV 06/15/17 14:45 06/15/17 14:41 Norepinephrine Bitartrate 4 mg/ Sodium Chloride 250 ml @ 7.5 mls/hr TITRATE PRN IV 06/15/17 21:45 06/15/17 19:00 (Keppra) 500 mg Q12HR PO 06/17/17 11:30 06/19/17 21:24 Potassium Chloride 10 meq/ Lactated Ringer's 505 ml @ 42 mls/hr Q12H2M IV 06/17/17 13:15 06/19/17 22:32 (Pravachol) 40 mg HS PO 06/18/17 21:00 06/19/17 21:24 (Lopressor) 25 mg Q12HR PO 06/19/17 09:00 06/19/17 21:25 Allergies Allergies Coded Allergies No Known Allergies (Unverified Adverse Reaction, Unknown, 06/15/17) Review of Systems All other ROS: Unable to obtain Exam I&O / VS Vital Signs Date Time Temp Pulse Resp B/P (MAP) Pulse Ox O2 Delivery O2 Flow Rate FiO2 06/20/17 06:00 72 06/20/17 04:00 98.0 93 12 146/71 (96) 92 06/20/17 04:00 40 06/20/17 04:00 93 06/20/17 02:00 66 06/20/17 00:47 94 40 06/20/17 00:00 64 06/20/17 00:00 40 06/20/17 00:00 98.2 64 13 136/68 (90) 92 06/19/17 22:00 78 06/19/17 20:00 97.8 84 13 141/67 (91) 97 06/19/17 20:00 84 06/19/17 20:00 35 06/19/17 19:00 Mechanical Ventilator 30 06/19/17 18:13 92 30 06/19/17 18:00 35 06/19/17 16:15 95 30 06/19/17 16:00 98.4 82 22 101/55 (70) 92 06/19/17 13:49 94 35 06/19/17 12:00 98.6 81 19 132/69 (90) 06/19/17 12:00 35 06/19/17 11:50 35 06/19/17 10:59 95 35 06/19/17 08:15 96 35 06/19/17 08:00 100.2 117 17 139/63 (88) 100 06/19/17 08:00 35 Exam Comments intubated, alert, inconsistently follows, ou 3-2.5mm sluggish, grimaces, was maguire rt>left Objective Micro and Labs Laboratory Tests Test 06/19/17 16:20 06/20/17 05:47 Blood Gas Puncture Site LT RADIAL Blood Gas Patient Temperature 98.6 Blood Gas HCO3 21 Blood Gas Base Excess -2.4 Blood Gas Oxygen Saturation 92 Arterial Blood pH 7.42 Arterial Blood Partial Pressure CO2 33 Arterial Blood Partial Pressure O2 72 Arterial Blood Oxygen Content 14.4 Arterial Blood Carboxyhemoglobin 1.0 Arterial Blood Methemoglobin 1.0 Blood Gas Hemoglobin 11.0 Oxygen Delivery Device VENTILATOR Blood Gas Ventilator Setting CPAP/10/+5/30% Blood Gas Inspired Oxygen 30 White Blood Count 12.7 Red Blood Count 3.63 Hemoglobin 11.1 Hematocrit 32.8 Mean Corpuscular Volume 90.4 Mean Corpuscular Hemoglobin 30.5 Mean Corpuscular Hemoglobin Concent 33.7 Red Cell Distribution Width 13.5 Platelet Count 159 Mean Platelet Volume 8.5 Neutrophils (%) (Auto) 77.8 Lymphocytes (%) (Auto) 10.9 Monocytes (%) (Auto) 11.0 Eosinophils (%) (Auto) 0.1 Basophils (%) (Auto) 0.2 Neutrophils # (Auto) 9.9 Lymphocytes # (Auto) 1.4 Monocytes # (Auto) 1.4 Eosinophils # (Auto) 0.0 Basophils # (Auto) 0.0 CBC Comment DIFF FINAL Differential Comment Blood Urea Nitrogen 38 Creatinine 1.02 Random Glucose 172 Total Protein 5.7 Albumin 2.0 Calcium Level 7.9 Phosphorus Level 2.0 Magnesium Level 2.2 Alkaline Phosphatase 131 Aspartate Amino Transf (AST/SGOT) 86 Alanine Aminotransferase (ALT/SGPT) 45 Total Bilirubin 1.2 Sodium Level 155 Potassium Level 4.0 Chloride Level 124 Carbon Dioxide Level 22.7 Anion Gap 8 Estimat Glomerular Filtration Rate 52 Date/Time Source Procedure Growth Status 06/15/17 05:26 Blood Peripheral Aerobic Blood Culture - Preliminary NO GROWTH IN 4 DAYS Resulted 06/15/17 05:26 Blood Peripheral Anaerobic Blood Culture - Preliminary NO GROWTH IN 4 DAYS Resulted 06/15/17 15:15 Cerebral Spinal Fluid Shunt Fluid Gram Stain - Final Complete 06/15/17 15:15 Cerebral Spinal Fluid Shunt Fluid CSF Culture - Final NO GROWTH IN 72 HOURS Complete 06/18/17 05:40 Sputum Endotracheal Gram Stain - Final Resulted 06/18/17 05:40 Sputum Culture - Preliminary Staphylococcus Species Resulted Jose Cruz Crowell MD Jun 20, 2017 07:21
[2017-06-20] MEDS: CHLORHEXIDINE 0.12% (ORAL KIT) 15 ML CUP MT SCH ×2 (08:00→19:51)
[2017-06-20] MEDS ORDERED: Vancomycin Consult Pharmacy 1 EA OTHER SCH (08:15)
--- NOTE | 2017-06-20 08:24 | HHI.CCPN ---
Subjective Remarks/Hospital Course Admission Diagnosis Parenchymal Brain Hemorrhage Diagnosis: (1) Hemorrhagic stroke Diagnosis: Principal (2) Respiratory failure (3) Hypertensive urgency Diagnosis: Principal (4) Encephalopathy, metabolic Diagnosis: Principal (5) CLAYTON (acute kidney injury) Diagnosis: Secondary Severely dehydrated, elderly woman presents confused to [facility] ED with hypertensive urgency and semi-acute right hemispheric parenchymal brain hemorrhage. Arrived from [facility] on cardene gtt and aphasic. Handness not determined yet. Unable to get ROS. No anticoagulants. INR normal. 06/16: Flaccid left side. Minimal eye opening. Moves right arm and leg to stimulation. Breathes over vent. ICP control, EVD draining well. 06/17: Moving both arms, right much stronger. More alert but episodic apnea spells. 06/18: No events over the night. Patient remains intubated, off sedation. She is currently on pressure support, 01/04, doing well. Awake, following commands. Son present at bedside. T-max of 99.6. I/O 250/1545. 06/19: No events over the night. Patient did well yesterday on pressure support , but was not able to be extubated secondary to no cuff leak. She remains on Cardene currently at 9.5 mg/h. Afebrile with a T-max of 99.4. Negative fluid balance. 06/20: Patient did well over the night. T-max of 100.2. ICP of 4. Thick sputum secretions sent yesterday for culture now growing Staphylococcus. Patient is awake, off sedation following some commands. Off Cardene drip since yesterday. Review of systems is unobtainable since patient is intubated Objective Vital Signs Date Time Temp Pulse Resp B/P (MAP) Pulse Ox O2 Delivery O2 Flow Rate FiO2 06/20/17 08:10 92 40 06/20/17 06:00 72 06/20/17 04:00 98.0 12 146/71 (96) 06/19/17 19:00 Mechanical Ventilator Intake and Output 06/20/17 06/20/17 06/21/17 08:00 16:00 00:00 Intake Total 2025 ml Output Total 710 ml Balance 1315 ml Result Diagram: 06/20/17 0547 06/20/17 0515 Other Results Laboratory Tests Test 06/19/17 16:20 Blood Gas Puncture Site LT RADIAL Blood Gas Patient Temperature 98.6 Blood Gas HCO3 21 mmol/L (22-26) Blood Gas Base Excess -2.4 mmol/L (-2-2) Blood Gas Oxygen Saturation 92 % (90-100) Arterial Blood pH 7.42 (7.380-7.420) Arterial Blood Partial Pressure CO2 33 mmHg (38-42) Arterial Blood Partial Pressure O2 72 mmHg (61-120) Arterial Blood Oxygen Content 14.4 Vol % (12.0-20.0) Arterial Blood Carboxyhemoglobin 1.0 % (0-4) Arterial Blood Methemoglobin 1.0 % (0-2) Blood Gas Hemoglobin 11.0 G/DL (12.0-16.0) Oxygen Delivery Device VENTILATOR Blood Gas Ventilator Setting CPAP/10/+5/30% Blood Gas Inspired Oxygen 30 % Imaging Last 24 hours Impressions Chest X-Ray 06/20/17 0600 Signed Impressions: Service Date/Time: Tuesday, June 20, 2017 04:35 - CONCLUSION: 1. ET tube tip is directed at the orifice of the right main bronchus and needs to be withdrawn 2.5 cm. 2. The right lung is better aerated than on prior examination , but there is left lower lobe consolidation. 3. Interval development of non-consolidative infiltrate in the right infrahilar region. Brandon Vaughn MD Last Impressions Head CT 06/15/17514 Signed Impressions: Service Date/Time: Thursday, June 15, 2017 05:59 - CONCLUSION: 1. 2.6 cm parenchymal hemorrhage in the posterior right temporal lobe with intraventricular extension. 2. There appears to be a small subarachnoid component over both parietal convexities. 3. Ventricular prominence with periventricular diminished attenuation characteristic of moderately severe small vessel ischemic demyelination. No midline shift Ariel Frederick MD Chest X-Ray 06/15/17 0515 Signed Impressions: Service Date/Time: Thursday, June 15, 2017 06:15 - CONCLUSION: 1. Minimal left perihilar scarring/fibrosis. Lungs are otherwise clear. 2. Fullness of the upper mediastinum I believe is due to some uncoiling of the thoracic aorta. Trachea remains midline. 3. Borderline prominent but well compensated heart. Ariel Frederick MD Head Magnetic Resonance Angiography 06/15/17 0000 Signed Impressions: Service Date/Time: Thursday, June 15, 2017 11:52 - CONCLUSION: MRA within normal limits. There is a parenchymal hemorrhage in the posterior right temporal lobe with intraventricular extension. Ivan Bahena MD Brain MRI 06/15/17 0000 Signed Impressions: Service Date/Time: Thursday, June 15, 2017 11:52 - CONCLUSION: 1. Large hemorrhage in the right posterior temporal lobe with rupture into the ventricular system and mild ventricular enlargement. Findings most characteristic of a hemorrhagic infarct. On followup exam would recommend contrast to exclude an enhancing underlying lesion. 2. Moderate chronic ischemic changes in periventricular white matter. No significant midline shift. Ivan Bahena MD Objective Remarks General - elderly lady, intubated, awake, ill-appearing HEENT - pupils equal and reactive, sclerae anicteric, neck supple, no rigidity, neck veins not distended, no carotid bruit, + ETT, + OGT, + EVD CV - regular S1 and S2, no murmurs appreciated Chest -scattered coarse breath sounds b/l, good air entry, no wheezes Abdomen - soft, not distended, non-tender, BS decreased, no hepatomegaly, no splenomegaly Skin - no rashes, no cyanosis Extremities - no edema, + peripheral pulses, warm and well-perfused, no clubbing Neuro -awake, intubated, follows some commands, nods to some questions, good cough, no facial asymmetry, pupils equal and reactive, does not wiggle toes on command, squeezes fingers on the right upper extremity and spontaneously moves left upper extremity A/P Problem List: (1) Hemorrhagic stroke ICD Code: I61.9 - Nontraumatic intracerebral hemorrhage, unspecified Status: Acute (2) Hypertensive urgency ICD Code: I16.0 - Hypertensive urgency Status: Acute (3) Encephalopathy, metabolic ICD Code: G93.41 - Metabolic encephalopathy Status: Acute (4) CLAYTON (acute kidney injury) ICD Code: N17.9 - Acute kidney failure, unspecified Status: Acute Assessment and Plan 1. Right temporal intraparenchymal hemorrhage status post EVD placement 2. Hypertensive emergency -improved off Cardene 3. Acute respiratory failure due to inability to protect the airway 4. Concern for Staphylococcus pneumonia due to increased sputum secretions still borderline elevated white count and low-grade fever as well as developing infiltrate on x-ray 5. Acute encephalopathy -improved since admission 6. Mild hypernatremia -slowly worsening 7. Hyperlipidemia 1. Continue neuro checks. 2. Start Vanco, consult pharmacy for dosing 3. On metoprolol, keep SBP less than 160 4. Vent bundle and bronchodilators 5. SBT as tolerated 6. On Keppra prophylaxis 7. Appreciate neurology and neurosurgery consultations 8. On tube feeds. Increase free water via NG tube 9. No chemical DVT px. 10. SCDs. 11. GI prophylaxis 12. Minimize sedation and pain medication Overall impression: Patient is critically ill with acute brain hemorrhage complicated by dehydration, rhabdomyolysis, kidney injury, and hypertensive urgency. Initially was deteriorating rapidly and required intubation and mechanical ventilation. Prognosis guarded. No family present at bedside. Discussed with both sons yesterday at bedside. Matt Trammell MD Jun 20, 2017 08:24
[2017-06-20] MEDS: METOPROLOL TARTRATE 25 MG TAB PO SCH ×2 (09:15→20:17)
[2017-06-20] MEDS: DOCUSATE SODIUM 50 MG/SENNA 8.6 MG TAB PO SCH ×2 (09:15→20:17)
[2017-06-20] MEDS: levETIRAcetam 500 MG TAB PO SCH ×2 (09:16→20:17)
[2017-06-20] MEDS: FAMOTIDINE 20 MG/2 ML VIAL IV PUSH SCH ×2 (09:16→20:17)
[2017-06-20] MEDS: RESP: ALBUTEROL 2.5 MG/IPRATROPIUM 0.5 MG NEB (SCH) NEB ×3 (09:27→21:09)
--- NOTE | 2017-06-20 10:03 | HHI.NSPN ---
(Bell Mooney) Note Status Status: Progress Note (Bell Mooney) Interval History Interval History 77 year old female with large hemorrhage stroke with hydrocephalus, worsening mental status, patient became severely obtunded difficult to arouse, she underwent placement of ventriculostomy drain 06/15/1706/16: ventriculostomy draining well, intubated, opening eyes and moving right side spontaneously. 06/18: ventriculostomy draining well, remains intubated, opens eyes, tracks, moves right side, stable left paresis 06/19: ventriculostomy draining well, CSF still bloody, dark red. opens eyes and moves right side spontaneously 06/20: ventriculostomy draining well, still gross bloody CSF, intubated, but opens eyes and gave thumbs up to command (Bell Mooney) Labs, Micro, & Vital Signs Results Date Time Temp Pulse Resp B/P (MAP) Pulse Ox O2 Delivery O2 Flow Rate FiO2 06/20/17 08:10 92 40 06/20/17 08:10 40 06/20/17 06:00 72 06/20/17 04:00 98.0 93 12 146/71 (96) 92 06/20/17 04:00 40 06/20/17 04:00 93 06/20/17 02:00 66 06/20/17 00:47 94 40 06/20/17 00:00 64 06/20/17 00:00 40 06/20/17 00:00 98.2 64 13 136/68 (90) 92 06/19/17 22:00 78 06/19/17 20:00 97.8 84 13 141/67 (91) 97 06/19/17 20:00 84 06/19/17 20:00 35 06/19/17 19:00 Mechanical Ventilator 30 06/19/17 18:13 92 30 06/19/17 18:00 35 06/19/17 16:15 95 30 06/19/17 16:00 98.4 82 22 101/55 (70) 92 06/19/17 13:49 94 35 06/19/17 12:00 98.6 81 19 132/69 (90) 06/19/17 12:00 35 06/19/17 11:50 35 06/19/17 10:59 95 35 Constitutional Vital Signs Date Time Temp Pulse Resp B/P (MAP) Pulse Ox O2 Delivery O2 Flow Rate FiO2 06/20/17 08:10 92 40 06/20/17 08:10 40 06/20/17 06:00 72 06/20/17 04:00 98.0 93 12 146/71 (96) 92 06/20/17 04:00 40 06/20/17 04:00 93 06/20/17 02:00 66 06/20/17 00:47 94 40 06/20/17 00:00 64 06/20/17 00:00 40 06/20/17 00:00 98.2 64 13 136/68 (90) 92 06/19/17 22:00 78 06/19/17 20:00 97.8 84 13 141/67 (91) 97 06/19/17 20:00 84 06/19/17 20:00 35 06/19/17 19:00 Mechanical Ventilator 30 06/19/17 18:13 92 30 06/19/17 18:00 35 06/19/17 16:15 95 30 06/19/17 16:00 98.4 82 22 101/55 (70) 92 06/19/17 13:49 94 35 06/19/17 12:00 98.6 81 19 132/69 (90) 06/19/17 12:00 35 06/19/17 11:50 35 06/19/17 10:59 95 35 (Bell Mooney) Review of Systems ROS Limitations: Intubated (Bell Mooney) Physical Exam Gen: intubated, no acute distress HEENT: ventriculostomy drain in place at 5 cm H20, draining dark red CSF well. pupils equal, nonicteric sclera. ET tube in place Neck: soft, supple Musculoskeletal: no obvious deformities. moves right side spontaneously, followed to command with thumbs up. left dense paresis Heart: regular rate rhythm Resp: clear, mechanically vented Neuro: opens eyes, gave right thumbs up to command. CN: pupils equal, exam limited due to clinical condition Cerebellar: cannot assess due to clinical status Skin: warm, dry (Bell Mooney) Mr Mansfield remains ntubated, no acute distress ventriculostomy drain in place at 5 cm H20, draining dark red CSF well. pupils equal, nonicteric sclera. ET tube in place Neck: soft, supple Musculoskeletal: no obvious deformities. moves right side spontaneously, followed to command with thumbs up. left dense paresis Heart: regular rate rhythm Resp: clear, mechanically vented Neuro: opens eyes, gave right thumbs up to command. CN: pupils equal, exam limited due to clinical condition Cerebellar: cannot assess due to clinical status Skin: warm, dry (Andre Nixon MD) Medications Current Medications Current Medications Medications (Trade) Dose Ordered Sig/Jose Guadalupe Route PRN Reason Start Time Stop Time Status Last Admin Dose Admin Sodium Chloride (NS Flush) 2 ml UNSCH PRN IV FLUSH FLUSH AFTER USING IV ACCESS 06/15/17 05:15 Nicardipine HCl 25 mg/Sodium Chloride 250 ml @ 50 mls/hr TITRATE PRN IV Blood pressure management 06/15/17 06:15 06/19/17 06:43 Acetaminophen (Tylenol) 650 mg Q6H PRN PO PAIN 1-10 AND/OR FEVER >101F 06/15/17 06:30 Famotidine (Pepcid Inj) 10 mg Q12HR IV PUSH 06/15/17 09:00 06/20/17 09:16 Ondansetron HCl (Zofran Inj) 4 mg Q6H PRN IV PUSH NAUSEA OR VOMITING 06/15/17 06:30 Albuterol/ Ipratropium (Duoneb Neb) 1 ampule Q4HR NEB PRN INH WHEEZING 06/15/17 06:30 Miscellaneous Information 1 Q361D XX 06/15/17 06:30 06/15/17 06:30 Chlorhexidine Gluconate (Chlorhexidine 2% Cloth) 3 pack Taper DAILY@04 TOP 06/16/17 04:00 06/12/18 03:59 06/20/17 04:00 Chlorhexidine Gluconate (Chlorhexidine 2% Cloth) 3 pack UNSCH PRN TOP HYGIENIC CARE 06/15/17 06:30 Senna/Docusate Sodium ([place]-Colace) 1 tab BID PO 06/15/17 09:00 06/20/17 09:15 Magnesium Hydroxide (Milk Of Magnesia Liq) 30 ml Q12H PRN PO Mild constipation 06/15/17 06:30 Sennosides (Senokot) 17.2 mg Q12H PRN PO Moderate constipation 06/15/17 06:30 Bisacodyl (Dulcolax Supp) 10 mg DAILY PRN RECTAL SEVERE CONSITIPATION 06/15/17 06:30 Lactulose (Lactulose Liq) 30 ml DAILY PRN PO SEVERE CONSITIPATION 06/15/17 06:30 Chlorhexidine Gluconate (Peridex 0.12% Liq) 15 ml BID@08,20 MT 06/15/17 20:00 06/20/17 08:00 Propofol 100 ml @ 1.941 mls/ hr TITRATE PRN IV SEDATION 06/15/17 14:45 06/15/17 14:41 Levetriacetam (Keppra) 500 mg Q12HR PO 06/17/17 11:30 06/20/17 09:16 Pravastatin Sodium (Pravachol) 40 mg HS PO 06/18/17 21:00 06/19/17 21:24 Metoprolol Tartrate (Lopressor) 25 mg Q12HR PO 06/19/17 09:00 06/20/17 09:15 Pharmacy Profile Note 0 ml @ 0 mls/hr UNSCH OTHER 06/20/17 08:15 Albuterol/ Ipratropium (Duoneb Neb) 1 ampule Q6HR NEB NEB 06/20/17 10:00 06/20/17 09:27 (Bell Mooney) Current Medications Current Medications Sodium Chloride (NS Flush) 2 ml UNSCH PRN IV FLUSH FLUSH AFTER USING IV ACCESS Last administered on 06/21/17at 00:43; Start 06/15/17 at 05:15 Sodium Chloride 500 ml @ 500 mls/hr BOLUS ONCE IV ; Start 06/15/17 at 06:00; Stop 06/15/17 at 06:59; Status DC Nicardipine HCl 25 mg/Sodium Chloride 250 ml @ 50 mls/hr TITRATE PRN IV Blood pressure management Last administered on 06/19/17at 06:43; Start 06/15/17 at 06: 15 Pravastatin Sodium (Pravachol) 80 mg HS PO Last administered on 06/17/17at 23:23 ; Start 06/15/17 at 21:00; Stop 06/18/17 at 09:30; Status DC Levetriacetam 100 ml @ 400 mls/hr BOLUS ONCE IV Last administered on at 09:43; Start 06/15/17 at 06:30; Stop 06/15/17 at 06:44; Status DC Sodium Chloride 1,000 ml @ 100 mls/hr Q10H IV Last administered on 06/17/17at 07:29; Start 06/15/17 at 06:17; Stop 06/17/17 at 12:42; Status DC Acetaminophen (Tylenol) 650 mg Q6H PRN PO PAIN 1-10 AND/OR FEVER >101F Last administered on 06/22/17at 11:46; Start 06/15/17 at 06:30 Morphine Sulfate (Morphine Inj) 2 mg Q2H PRN IV PUSH PAIN SCALE 6 TO 10 Last administered on 06/19/17at 08:29; Start 06/15/17 at 06:30; Stop 06/20/17 at 08:25 ; Status DC Famotidine (Pepcid Inj) 10 mg Q12HR IV PUSH Last administered on 06/23/17 08: 18; Start 06/15/17 at 09:00 Ondansetron HCl (Zofran Inj) 4 mg Q6H PRN IV PUSH NAUSEA OR VOMITING; Start at 06:30 Albuterol/ Ipratropium (Duoneb Neb) 1 ampule Q4HR NEB PRN INH WHEEZING; Start 06/15/17 at 06:30 Miscellaneous Information 1 Q361D XX Last administered on 06/15/17at 06:30; Start 06/15/17 at 06:30 Chlorhexidine Gluconate (Chlorhexidine 2% Cloth) Taper DAILY@04 TOP Last administered on 06/20/17at 04:00; Start 06/16/17 at 04:00; Stop 06/12/18 at 03:59 Chlorhexidine Gluconate (Chlorhexidine 2% Cloth) 3 pack UNSCH PRN TOP HYGIENIC CARE; Start 06/15/17 at 06:30 Senna/Docusate Sodium ([place]-Colace) 1 tab BID PO Last administered on at 08:18; Start 06/15/17 at 09:00 Magnesium Hydroxide (Milk Of Magnesia Liq) 30 ml Q12H PRN PO Mild constipation Last administered on 06/22/17at 20:58; Start 06/15/17 at 06:30 Sennosides (Senokot) 17.2 mg Q12H PRN PO Moderate constipation; Start 06/15/17 at 06:30 Bisacodyl (Dulcolax Supp) 10 mg DAILY PRN RECTAL SEVERE CONSITIPATION; Start at 06:30 Lactulose (Lactulose Liq) 30 ml DAILY PRN PO SEVERE CONSITIPATION Last administered on 06/22/17at 20:58; Start 06/15/17 at 06:30 Rocuronium [place] (Zemuron Inj) 100 mg BOLUS ONCE IV Last administered on at 14:34; Start 06/15/17 at 14:00; Stop 06/15/17 at 14:01; Status DC Midazolam HCl (Versed Inj) 5 mg ONCE ONCE IV PUSH Last administered on at 14:35; Start 06/15/17 at 14:00; Stop 06/15/17 at 14:01; Status DC Chlorhexidine Gluconate (Peridex 0.12% Liq) 15 ml BID@08,20 MT Last administered on 06/20/17at 19:51; Start 06/15/17 at 20:00 Propofol 100 ml @ 0 mls/hr TITRATE PRN IV SEDATION; Start 06/15/17 at 14:00; Status UNV Midazolam HCl (Versed Inj) 5 mg STK-MED ONCE .ROUTE ; Start 06/15/17 at 14:07; Stop 06/15/17 at 14:08; Status DC Rocuronium [place] (Zemuron Inj) 50 mg STK-MED ONCE .ROUTE ; Start 06/15/17 at 14:07; Stop 06/15/17 at 14:08; Status DC Propofol 100 ml @ 1.941 mls/ hr TITRATE PRN IV SEDATION Last administered on at 14:41; Start 06/15/17 at 14:45; Stop 06/21/17 at 14:09; Status DC Miscellaneous Information (RASS Change Order) 1 ea ONCE ONCE XX Last administered on 06/15/17at 14:45; Start 06/15/17 at 14:45; Stop 06/15/17 at 14:46 ; Status DC Norepinephrine Bitartrate 4 mg/ Sodium Chloride 250 ml @ 7.5 mls/hr TITRATE PRN IV Maintain MAP > 70 mmHg; Start 06/15/17 at 19:45; Stop 06/15/17 at 21:37; Status DC Norepinephrine Bitartrate 4 mg/ Sodium Chloride 250 ml @ 7.5 mls/hr TITRATE PRN IV Maintain MAP > 70 mmHg Last administered on 06/15/17at 19:00; Start at 21:45; Stop 06/20/17 at 08:11; Status DC Levetriacetam (Keppra) 500 mg Q12HR PO Last administered on 06/23/17at 08:18; Start 06/17/17 at 11:30 Potassium Chloride 20 meq/ Lactated Ringer's 1,010 ml @ 42 mls/hr Q24H IV ; Start 06/17/17 at 12:45; Stop 06/17/17 at 13:02; Status DC Potassium Chloride 10 meq/ Lactated Ringer's 505 ml @ 42 mls/hr Q12H2M IV Last administered on 06/19/17at 22:32; Start 06/17/17 at 13:15; Stop 06/20/17 at 08:13; Status DC Pravastatin Sodium (Pravachol) 40 mg HS PO Last administered on 06/22/17at 20:58 ; Start 06/18/17 at 21:00 Potassium Phosphate 15 mmol/ Sodium Chloride 155 ml @ 38.75 mls/ hr ONCE ONCE IV Last administered on 06/19/17at 08:50; Start 06/19/17 at 08:00; Stop at 11:59; Status DC Metoprolol Tartrate (Lopressor) 25 mg Q12HR PO Last administered on 06/23/17at 08:18; Start 06/19/17 at 09:00 Pharmacy Profile Note 0 ml @ 0 mls/hr UNSCH OTHER ; Start 06/20/17 at 08:15; Stop 06/21/17 at 14:09; Status DC Albuterol/ Ipratropium (Duoneb Neb) 1 ampule Q6HR NEB NEB Last administered on 06/23/17at 07:18; Start 06/20/17 at 10:00 Vancomycin HCl 1250 mg/Sodium Chloride 262.5 ml @ 262.5 mls/ hr ONCE ONCE IV Last administered on 06/20/17at 13:29; Start 06/20/17 at 12:00; Stop 06/20/17 at 12:59; Status DC Hydralazine HCl (Apresoline Inj) 10 mg Q4H PRN IV PUSH SBP greater than 160 Last administered on 06/23/17at 03:16; Start 06/20/17 at 12:30 Potassium Phosphate 15 mmol/ Sodium Chloride 155 ml @ 38.75 mls/ hr ONCE ONCE IV Last administered on 06/20/17at 17:05; Start 06/20/17 at 13:45; Stop at 17:44; Status DC Furosemide (Lasix Inj) 40 mg ONCE ONCE IV PUSH Last administered on 06/21/17at 08:53; Start 06/21/17 at 08:30; Stop 06/21/17 at 08:31; Status DC Cefazolin Sodium/ Dextrose 50 ml @ 100 mls/hr Q8H IV Last administered on 06/23at 05:16; Start 06/21/17 at 15:00 (Andre Nixon MD) Medical Decision Making MDM Remarks 77 y/o female with large hemorrhagic stroke, she had evidence of hydrocephalus, she underwent placement of ventriculostomy drain 06/15/17 due to worsening mental status, now improving (Bell Mooney) Plan Plan Remarks cont ventriculostomy draining at 5 cm H20, CSF still very bloody cont critical care nonchemical dvt prophylaxis in view of ICH serial neuro checks Neurologist following (Bell Mooney) Attending Statement Neuro. Continue neuro checks in a serial fashion. Continue ventriculostomy drainage and ICP management. Pulmonary. Continue mechanical ventilation, aggressive pulmonary toilette, nasotracheal suction, and breathing treatments with nebulizers. Daily PT and OT Renal. Continue to monitor closely urine output, BUN and creatinine Endocrine. Continue to Monitor serial Acu checks and SSI as needed in detail ID continue to monitor for signs of infection Continue Protonix for stress ulcer prophylaxis Continue Nickolas hose and SCD's for DVT prophylaxis Further recommendations will be provided depending on the patient's clinical evaluation and follow up studies. The exam, history, and the medical decision-making described in the above note were completed with the assistance of the mid-level provider. I reviewed and agree with the findings presented. I attest that I had a [id number] encounter with the patient on the same day, and personally performed and documented my assessment and findings in the medical record. (Andre Nixon MD) Bell Mooney Jun 20, 2017 10:03 Andre Nixon MD Jun 23, 2017 14:20
[2017-06-20] MEDS ORDERED: VANCOMYCIN INJ 1,250 MG in SODIUM CHLOR 0.9% 250 ML INJ 250 ML IV ONE (12:00)
[2017-06-20] MEDS: hydrALAZINE HCL 20 MG/ML VIAL IV PUSH PRN ×3 (13:04→20:17)
[2017-06-20] MEDS ORDERED: POTASSIUM PHOSPHATE INJ 15 MMOL in SODIUM CHLORIDE 0.9% INJ 150 ML IV ONE (13:45)
[2017-06-20] MEDS: PRAVASTATIN SOD 40 MG TAB PO SCH (20:17)
[2017-06-20] MEDS: SODIUM CHLORIDE 0.9% FLUSH 10 ML FLUSH IV FLUSH PRN (20:18)
[2017-06-21] VITALS (15 sets, daily range): BP systolic 140–163; BP diastolic 78–89; PULSE 73–104; RESP 19–29; TEMP 98.1–98.8; O2SAT 91–95
[2017-06-21] MEDS: hydrALAZINE HCL 20 MG/ML VIAL IV PUSH PRN ×3 (00:43→17:56)
[2017-06-21] MEDS: SODIUM CHLORIDE 0.9% FLUSH 10 ML FLUSH IV FLUSH PRN (00:43)
[2017-06-21] MEDS: CHLORHEXIDINE GLUCONATE 2 % 1 PACK (2 CLOTHS) TOP SCH (03:20)
[2017-06-21] MEDS: RESP: ALBUTEROL 2.5 MG/IPRATROPIUM 0.5 MG NEB (SCH) NEB ×4 (03:26→21:23)
--- NOTE | 2017-06-21 03:43 | RADRPT ---
EXAM DATE/TIME: 06/21/2017 02:40 [facility] COMPARISON: CHEST SINGLE AP, June 20, 2017, 4:35. INDICATIONS : Short of breath. MEDICAL HISTORY : CVA. SURGICAL HISTORY : None. ENCOUNTER: Subsequent ACUITY: 1 week PAIN SCORE: Non-responsive. LOCATION: Bilateral chest FINDINGS: Patient rotation towards the right. Interval extubation and removal of gastric tube. There is conso lidation seen in the medial right lower lung with loss of delineation of the midportion of the right hemidiaphragm. The left lower lung is better aerated and there is partial resolution of the consolid ated infiltrate with some patchy residual opacities. CONCLUSION: Increasing consolidation right lower lung. Improving consolidation left lower lung. Brandon Vaughn MD on June 21, 2017 at 3:40 Board Certified Radiologist. This report was verified electronically.
[2017-06-21 06:31] LABS: AUTOMATED NEUTROPHIL # 10.8 TH/MM3 (1.8-7.7); BASOPHIL % 0.1 % (0.0-2.0); EOSINOPHIL % 0.1 % (0.0-4.0); HEMATOCRIT 35.5 % (35.0-46.0); HEMOGLOBIN 12.3 GM/DL (11.6-15.3); LYMPH % 10.7 % (9.0-44.0); LYMPHOCYTE # 1.4 TH/MM3 (1.0-4.8); MEAN CELL VOLUME 89.7 FL (80.0-100.0); MEAN CORPUSCULAR HEMOGLOBIN 31.2 PG (27.0-34.0); MEAN CORPUSCULAR HGB CONC 34.7 % (32.0-36.0); MEAN PLATELET VOLUME 8.8 FL (7.0-11.0); MONO % 8.8 % (0.0-8.0); MONOCYTE # 1.2 TH/MM3 (0-0.9); NEUT % 80.3 % (16.0-70.0); PLATELET COUNT 177 TH/MM3 (150-450); RED BLOOD COUNT 3.96 MIL/MM3 (4.00-5.30); RED CELL DISTRIBUTION WIDTH 13.4 % (11.6-17.2); WHITE BLOOD COUNT 13.5 TH/MM3 (4.0-11.0)
[2017-06-21 06:46] LABS: ALBUMIN 2.1 GM/DL (3.4-5.0); AST (GOT) 46 U/L (15-37); BICARBONATE 23.6 MEQ/L (21.0-32.0); BLOOD UREA NITROGEN 29 MG/DL (7-18); CALCIUM 7.8 MG/DL (8.5-10.1); CHLORIDE 120 MEQ/L (98-107); CREATININE 0.79 MG/DL (0.50-1.00); GLOMERULAR FILTRATION RATE 70 ML/MIN (>89); GLUCOSE,RANDOM 132 MG/DL (74-106); MAGNESIUM 2.1 MG/DL (1.5-2.5); SODIUM (NA) 154 MEQ/L (136-145)
[2017-06-21 06:50] LABS: ALKALINE PHOSPHATASE 145 U/L (45-117); ALT (GPT) 46 U/L (10-53); RANDOM VANCOMYCIN 8.6 COMMENT; TOTAL PROTEIN 6.3 GM/DL (6.4-8.2)
[2017-06-21] MEDS: CHLORHEXIDINE 0.12% (ORAL KIT) 15 ML CUP MT SCH ×2 (08:00→20:00)
[2017-06-21] MEDS ORDERED: FUROSEMIDE 40 MG/4 ML VIAL IV PUSH ONE (08:30)
--- NOTE | 2017-06-21 08:36 | HHI.CCPN ---
Subjective Remarks/Hospital Course Admission Diagnosis Parenchymal Brain Hemorrhage Diagnosis: (1) Hemorrhagic stroke Diagnosis: Principal (2) Respiratory failure (3) Hypertensive urgency Diagnosis: Principal (4) Encephalopathy, metabolic Diagnosis: Principal (5) CLAYTON (acute kidney injury) Diagnosis: Secondary Severely dehydrated, elderly woman presents confused to [facility] with hypertensive urgency and semi-acute right hemispheric parenchymal brain hemorrhage. Arrived from [facility] on cardene gtt and aphasic. Handness not determined yet. Unable to get ROS. No anticoagulants. INR normal. 06/16: Flaccid left side. Minimal eye opening. Moves right arm and leg to stimulation. Breathes over vent. ICP control, EVD draining well. 06/17: Moving both arms, right much stronger. More alert but episodic apnea spells. 06/18: No events over the night. Patient remains intubated, off sedation. She is currently on pressure support, 01/04, doing well. Awake, following commands. Son present at bedside. T-max of 99.6. I/O 250/1545. 06/19: No events over the night. Patient did well yesterday on pressure support , but was not able to be extubated secondary to no cuff leak. She remains on Cardene currently at 9.5 mg/h. Afebrile with a T-max of 99.4. Negative fluid balance. 06/20: Patient did well over the night. T-max of 100.2. ICP of 4. Thick sputum secretions sent yesterday for culture now growing Staphylococcus. Patient is awake, off sedation following some commands. Off Cardene drip since yesterday. 06/21: Patient did well postextubation and over the night. T-max of 100 yesterday morning. Very good urine output. Patient awake following commands, denying any pain. Objective Vital Signs Date Time Temp Pulse Resp B/P (MAP) Pulse Ox O2 Delivery O2 Flow Rate FiO2 06/21/17 06:00 98 06/21/17 04:00 98.1 25 151/78 (102) 91 06/21/17 01:06 Nasal Cannula 3.00 06/20/17 12:00 40 Intake and Output 06/21/17 06/21/17 06/22/17 08:00 16:00 00:00 Output Total 1063 ml Balance -1063 ml Result Diagram: 06/21/17 0509 06/21/17 0509 Other Results Laboratory Tests Test 06/20/17 12:27 Blood Gas Puncture Site RT RADIAL Blood Gas Patient Temperature 98.6 Blood Gas HCO3 23 mmol/L (22-26) Blood Gas Base Excess -0.8 mmol/L (-2-2) Blood Gas Oxygen Saturation 97 % (90-100) Arterial Blood pH 7.47 (7.380-7.420) Arterial Blood Partial Pressure CO2 32 mmHg (38-42) Arterial Blood Partial Pressure O2 108 mmHg (61-120) Arterial Blood Oxygen Content 24.5 Vol % (12.0-20.0) Arterial Blood Carboxyhemoglobin 0.9 % (0-4) Arterial Blood Methemoglobin 0.8 % (0-2) Blood Gas Hemoglobin 18.0 G/DL (12.0-16.0) Oxygen Delivery Device CPAP Blood Gas Ventilator Setting CPAP 5/PS 10 Blood Gas Inspired Oxygen 40 % Imaging Last 24 hours Impressions Chest X-Ray 06/20/17 0600 Signed Impressions: Service Date/Time: Tuesday, June 20, 2017 04:35 - CONCLUSION: 1. ET tube tip is directed at the orifice of the right main bronchus and needs to be withdrawn 2.5 cm. 2. The right lung is better aerated than on prior examination , but there is left lower lobe consolidation. 3. Interval development of non-consolidative infiltrate in the right infrahilar region. Brandon Vaughn MD Last Impressions Head CT 06/15/17514 Signed Impressions: Service Date/Time: Thursday, June 15, 2017 05:59 - CONCLUSION: 1. 2.6 cm parenchymal hemorrhage in the posterior right temporal lobe with intraventricular extension. 2. There appears to be a small subarachnoid component over both parietal convexities. 3. Ventricular prominence with periventricular diminished attenuation characteristic of moderately severe small vessel ischemic demyelination. No midline shift Ariel Frederick MD Chest X-Ray 06/15/17514 Signed Impressions: Service Date/Time: Thursday, June 15, 2017 06:15 - CONCLUSION: 1. Minimal left perihilar scarring/fibrosis. Lungs are otherwise clear. 2. Fullness of the upper mediastinum I believe is due to some uncoiling of the thoracic aorta. Trachea remains midline. 3. Borderline prominent but well compensated heart. Ariel Frederick MD Head Magnetic Resonance Angiography 06/15/17 0000 Signed Impressions: Service Date/Time: Thursday, June 15, 2017 11:52 - CONCLUSION: MRA within normal limits. There is a parenchymal hemorrhage in the posterior right temporal lobe with intraventricular extension. Ivan Bahena MD Brain MRI 06/15/17 0000 Signed Impressions: Service Date/Time: Thursday, June 15, 2017 11:52 - CONCLUSION: 1. Large hemorrhage in the right posterior temporal lobe with rupture into the ventricular system and mild ventricular enlargement. Findings most characteristic of a hemorrhagic infarct. On followup exam would recommend contrast to exclude an enhancing underlying lesion. 2. Moderate chronic ischemic changes in periventricular white matter. No significant midline shift. Ivan Bahena MD Objective Remarks General - elderly lady, awake, ill-appearing HEENT - pupils are equal and reactive, sclerae are anicteric, neck is supple, no rigidity, no JVD, no carotid bruit, + EVD, dry mucous membranes, no thrush, poor dentition CV - regular heart sounds, no murmurs, rubs or gallops Chest - good air entry, some rales at bases, no wheezes Abdomen - soft, not distended, non-tender, BS decreased, no hepatomegaly, no splenomegaly Skin - no rashes, no cyanosis Extremities - 1+ edema, + peripheral pulses, warm and well-perfused, no clubbing Neuro - awake, alert, follows some commands, no facial asymmetry, pupils equal and reactive, EOMI, tongue midline, shrugs shoulders weaker on the left, squeezes fingers on both upper extremities A/P Problem List: (1) Hemorrhagic stroke ICD Code: I61.9 - Nontraumatic intracerebral hemorrhage, unspecified Status: Acute (2) Hypertensive urgency ICD Code: I16.0 - Hypertensive urgency Status: Acute (3) Encephalopathy, metabolic ICD Code: G93.41 - Metabolic encephalopathy Status: Acute (4) CLAYTON (acute kidney injury) ICD Code: N17.9 - Acute kidney failure, unspecified Status: Acute Assessment and Plan 1. Right temporal intraparenchymal hemorrhage status post EVD placement 2. Hypertensive emergency -improved off Cardene 3. Acute respiratory failure due to inability to protect the airway -patient extubated yesterday, doing well so far 4. Concern for Staphylococcus pneumonia due to increased sputum secretions still borderline elevated white count and low-grade fever as well as developing infiltrate on x-ray -afebrile, mild leukocytosis 5. Acute encephalopathy -improved since admission 6. Mild hypernatremia -unchanged 7. Hyperlipidemia 1. Continue neuro checks. 2. On vancomycin, sputum culture is pending 3. On metoprolol, keep SBP less than 160 4. Bronchodilators 5. Supplemental O2 to keep SPO2 above 92% 6. On Keppra prophylaxis 7. Appreciate neurology and neurosurgery consultations 8. Speech swallow eval 9. No chemical DVT px. 10. SCDs. 11. GI prophylaxis Patient's condition is improved however she remains weak and at high risk for further complications. No family at bedside this morning. Discussed with son extensively yesterday at bedside. Matt Trammell MD Jun 21, 2017 08:36
[2017-06-21] MEDS: DOCUSATE SODIUM 50 MG/SENNA 8.6 MG TAB PO SCH ×2 (08:53→21:58)
[2017-06-21] MEDS: levETIRAcetam 500 MG TAB PO SCH ×2 (08:53→21:00)
[2017-06-21] MEDS: FAMOTIDINE 20 MG/2 ML VIAL IV PUSH SCH ×2 (08:53→21:58)
[2017-06-21] MEDS: METOPROLOL TARTRATE 25 MG TAB PO SCH ×2 (08:54→21:58)
[2017-06-21] MEDS: ceFAZolin 2 GM PREMIX 50 ML IV SCH ×2 (16:19→21:58)
--- NOTE | 2017-06-21 17:24 | HHI.NSPN ---
(Bell Mooney) Note Status Status: Progress Note (Bell Mooney) Interval History Interval History 77 year old female with large hemorrhage stroke with hydrocephalus, worsening mental status, patient became severely obtunded difficult to arouse, she underwent placement of ventriculostomy drain 06/15/1706/16: ventriculostomy draining well, intubated, opening eyes and moving right side spontaneously. 06/18: ventriculostomy draining well, remains intubated, opens eyes, tracks, moves right side, stable left paresis 06/19: ventriculostomy draining well, CSF still bloody, dark red. opens eyes and moves right side spontaneously 06/20: ventriculostomy draining well, still gross bloody CSF, intubated, but opens eyes and gave thumbs up to command 06/21: ventriculostomy continues to drain dark bloody CSF. neuro stable overnight (Bell Mooney) Labs, Micro, & Vital Signs Results Date Time Temp Pulse Resp B/P (MAP) Pulse Ox O2 Delivery O2 Flow Rate FiO2 06/21/17 14:00 89 06/21/17 12:00 98.8 89 19 152/84 (106) 94 06/21/17 12:00 89 06/21/17 10:21 92 Nasal Cannula 3.00 06/21/17 10:00 73 06/21/17 08:00 98.3 101 29 159/89 (112) 92 06/21/17 08:00 92 Nasal Cannula 3.00 06/21/17 08:00 101 06/21/17 06:00 98 06/21/17 04:00 104 06/21/17 04:00 98.1 104 25 151/78 (102) 91 06/21/17 02:00 83 06/21/17 01:06 93 Nasal Cannula 3.00 06/21/17 00:00 96 06/21/17 00:00 98.1 96 22 163/79 (107) 91 06/20/17 22:00 78 06/20/17 21:09 96 Nasal Cannula 3.00 06/20/17 20:00 98.0 76 26 172/85 (114) 92 06/20/17 20:00 92 06/20/17 19:00 93 Nasal Cannula 3.00 06/20/17 18:00 90 Constitutional Vital Signs Date Time Temp Pulse Resp B/P (MAP) Pulse Ox O2 Delivery O2 Flow Rate FiO2 06/21/17 14:00 89 06/21/17 12:00 98.8 89 19 152/84 (106) 94 06/21/17 12:00 89 06/21/17 10:21 92 Nasal Cannula 3.00 06/21/17 10:00 73 06/21/17 08:00 98.3 101 29 159/89 (112) 92 06/21/17 08:00 92 Nasal Cannula 3.00 06/21/17 08:00 101 06/21/17 06:00 98 06/21/17 04:00 104 06/21/17 04:00 98.1 104 25 151/78 (102) 91 06/21/17 02:00 83 06/21/17 01:06 93 Nasal Cannula 3.00 06/21/17 00:00 96 06/21/17 00:00 98.1 96 22 163/79 (107) 91 06/20/17 22:00 78 06/20/17 21:09 96 Nasal Cannula 3.00 06/20/17 20:00 98.0 76 26 172/85 (114) 92 06/20/17 20:00 92 06/20/17 19:00 93 Nasal Cannula 3.00 06/20/17 18:00 90 (Bell Mooney) Physical Exam Gen: extubated HEENT: ventriculostomy drain in place at 5 cm H20, draining dark red CSF well. pupils equal, nonicteric sclera. ET tube in place Neck: soft, supple Musculoskeletal: no obvious deformities. moves right side to command, 2 movement left arm to command, minimal to no movement LLE Heart: regular rate rhythm Resp: clear, mechanically vented Neuro: awake, oriented to name and place, follows simple commands.. CN: pupils equal. Cerebellar: cannot assess due to clinical status Skin: warm, dry (Bell Mooney) Gen: She has been recently extubated. Breathing comfortably HEENT: ventriculostomy drain in place at 5 cm H20, draining dark red CSF well. pupils equal, nonicteric sclera. ET tube in place Neck: soft, supple Musculoskeletal: no obvious deformities. moves right side to command, 2 movement left arm to command, minimal to no movement LLE Heart: regular rate rhythm Resp: clear, mechanically vented Neuro: awake, oriented to name and place, follows simple commands.. CN: pupils equal. Cerebellar: cannot assess due to clinical status Skin: warm, dry (Andre Nixon MD) Medications Current Medications Current Medications Medications (Trade) Dose Ordered Sig/Jose Guadalupe Route PRN Reason Start Time Stop Time Status Last Admin Dose Admin Sodium Chloride (NS Flush) 2 ml UNSCH PRN IV FLUSH FLUSH AFTER USING IV ACCESS 06/15/17 05:15 06/21/17 00:43 Nicardipine HCl 25 mg/Sodium Chloride 250 ml @ 50 mls/hr TITRATE PRN IV Blood pressure management 06/15/17 06:15 06/19/17 06:43 Acetaminophen (Tylenol) 650 mg Q6H PRN PO PAIN 1-10 AND/OR FEVER >101F 06/15/17 06:30 Famotidine (Pepcid Inj) 10 mg Q12HR IV PUSH 06/15/17 09:00 06/21/17 08:53 Ondansetron HCl (Zofran Inj) 4 mg Q6H PRN IV PUSH NAUSEA OR VOMITING 06/15/17 06:30 Albuterol/ Ipratropium (Duoneb Neb) 1 ampule Q4HR NEB PRN INH WHEEZING 06/15/17 06:30 Miscellaneous Information 1 Q361D XX 06/15/17 06:30 06/15/17 06:30 Chlorhexidine Gluconate (Chlorhexidine 2% Cloth) Taper DAILY@04 TOP 06/16/17 04:00 06/12/18 03:59 06/20/17 04:00 Chlorhexidine Gluconate (Chlorhexidine 2% Cloth) 3 pack UNSCH PRN TOP HYGIENIC CARE 06/15/17 06:30 Senna/Docusate Sodium ([place]-Colace) 1 tab BID PO 06/15/17 09:00 06/21/17 08:53 Magnesium Hydroxide (Milk Of Magnesia Liq) 30 ml Q12H PRN PO Mild constipation 06/15/17 06:30 Sennosides (Senokot) 17.2 mg Q12H PRN PO Moderate constipation 06/15/17 06:30 Bisacodyl (Dulcolax Supp) 10 mg DAILY PRN RECTAL SEVERE CONSITIPATION 06/15/17 06:30 Lactulose (Lactulose Liq) 30 ml DAILY PRN PO SEVERE CONSITIPATION 06/15/17 06:30 Chlorhexidine Gluconate (Peridex 0.12% Liq) 15 ml BID@08,20 MT 06/15/17 20:00 06/20/17 19:51 Levetriacetam (Keppra) 500 mg Q12HR PO 06/17/17 11:30 06/21/17 08:53 Pravastatin Sodium (Pravachol) 40 mg HS PO 06/18/17 21:00 06/20/17 20:17 Metoprolol Tartrate (Lopressor) 25 mg Q12HR PO 06/19/17 09:00 06/21/17 08:54 Albuterol/ Ipratropium (Duoneb Neb) 1 ampule Q6HR NEB NEB 06/20/17 10:00 06/21/17 15:46 Hydralazine HCl (Apresoline Inj) 10 mg Q4H PRN IV PUSH SBP greater than 160 06/20/17 12:30 06/21/17 13:09 Cefazolin Sodium/ Dextrose 50 ml @ 100 mls/hr Q8H IV 06/21/17 15:00 06/21/17 16:19 (Bell Mooney) Current Medications Current Medications Sodium Chloride (NS Flush) 2 ml UNSCH PRN IV FLUSH FLUSH AFTER USING IV ACCESS Last administered on 06/21/17at 00:43; Start 06/15/17 at 05:15 Sodium Chloride 500 ml @ 500 mls/hr BOLUS ONCE IV ; Start 06/15/17 at 06:00; Stop 06/15/17 at 06:59; Status DC Nicardipine HCl 25 mg/Sodium Chloride 250 ml @ 50 mls/hr TITRATE PRN IV Blood pressure management Last administered on 06/19/17at 06:43; Start 06/15/17 at 06: 15; Stop 06/23/17 at 17:33; Status DC Pravastatin Sodium (Pravachol) 80 mg HS PO Last administered on 06/17/17at 23:23 ; Start 06/15/17 at 21:00; Stop 06/18/17 at 09:30; Status DC Levetriacetam 100 ml @ 400 mls/hr BOLUS ONCE IV Last administered on at 09:43; Start 06/15/17 at 06:30; Stop 06/15/17 at 06:44; Status DC Sodium Chloride 1,000 ml @ 100 mls/hr Q10H IV Last administered on 06/17/17at 07:29; Start 06/15/17 at 06:17; Stop 06/17/17 at 12:42; Status DC Acetaminophen (Tylenol) 650 mg Q6H PRN PO PAIN 1-10 AND/OR FEVER >101F Last administered on 06/23/17at 20:18; Start 06/15/17 at 06:30 Morphine Sulfate (Morphine Inj) 2 mg Q2H PRN IV PUSH PAIN SCALE 6 TO 10 Last administered on 06/19/17at 08:29; Start 06/15/17 at 06:30; Stop 06/20/17 at 08:25 ; Status DC Famotidine (Pepcid Inj) 10 mg Q12HR IV PUSH Last administered on 06/24/17 07: 55; Start 06/15/17 at 09:00 Ondansetron HCl (Zofran Inj) 4 mg Q6H PRN IV PUSH NAUSEA OR VOMITING; Start at 06:30 Albuterol/ Ipratropium (Duoneb Neb) 1 ampule Q4HR NEB PRN INH WHEEZING; Start 06/15/17 at 06:30 Miscellaneous Information 1 Q361D XX Last administered on 06/15/17at 06:30; Start 06/15/17 at 06:30 Chlorhexidine Gluconate (Chlorhexidine 2% Cloth) Taper DAILY@04 TOP Last administered on 06/20/17at 04:00; Start 06/16/17 at 04:00; Stop 06/12/18 at 03:59 Chlorhexidine Gluconate (Chlorhexidine 2% Cloth) 3 pack UNSCH PRN TOP HYGIENIC CARE; Start 06/15/17 at 06:30 Senna/Docusate Sodium ([place]-Colace) 1 tab BID PO Last administered on at 07:55; Start 06/15/17 at 09:00 Magnesium Hydroxide (Milk Of Magnesia Liq) 30 ml Q12H PRN PO Mild constipation Last administered on 06/22/17 20:58; Start 06/15/17 at 06:30 Sennosides (Senokot) 17.2 mg Q12H PRN PO Moderate constipation; Start 06/15/17 at 06:30 Bisacodyl (Dulcolax Supp) 10 mg DAILY PRN RECTAL SEVERE CONSITIPATION; Start at 06:30 Lactulose (Lactulose Liq) 30 ml DAILY PRN PO SEVERE CONSITIPATION Last administered on 06/22/17at 20:58; Start 06/15/17 at 06:30 Rocuronium [place] (Zemuron Inj) 100 mg BOLUS ONCE IV Last administered on at 14:34; Start 06/15/17 at 14:00; Stop 06/15/17 at 14:01; Status DC Midazolam HCl (Versed Inj) 5 mg ONCE ONCE IV PUSH Last administered on at 14:35; Start 06/15/17 at 14:00; Stop 06/15/17 at 14:01; Status DC Chlorhexidine Gluconate (Peridex 0.12% Liq) 15 ml BID@08,20 MT Last administered on 06/20/17at 19:51; Start 06/15/17 at 20:00 Propofol 100 ml @ 0 mls/hr TITRATE PRN IV SEDATION; Start 06/15/17 at 14:00; Status UNV Midazolam HCl (Versed Inj) 5 mg STK-MED ONCE .ROUTE ; Start 06/15/17 at 14:07; Stop 06/15/17 at 14:08; Status DC Rocuronium [place] (Zemuron Inj) 50 mg STK-MED ONCE .ROUTE ; Start 06/15/17 at 14:07; Stop 06/15/17 at 14:08; Status DC Propofol 100 ml @ 1.941 mls/ hr TITRATE PRN IV SEDATION Last administered on at 14:41; Start 06/15/17 at 14:45; Stop 06/21/17 at 14:09; Status DC Miscellaneous Information (RASS Change Order) 1 ea ONCE ONCE XX Last administered on 06/15/17at 14:45; Start 06/15/17 at 14:45; Stop 06/15/17 at 14:46 ; Status DC Norepinephrine Bitartrate 4 mg/ Sodium Chloride 250 ml @ 7.5 mls/hr TITRATE PRN IV Maintain MAP > 70 mmHg; Start 06/15/17 at 19:45; Stop 06/15/17 at 21:37; Status DC Norepinephrine Bitartrate 4 mg/ Sodium Chloride 250 ml @ 7.5 mls/hr TITRATE PRN IV Maintain MAP > 70 mmHg Last administered on 06/15/17at 19:00; Start at 21:45; Stop 06/20/17 at 08:11; Status DC Levetriacetam (Keppra) 500 mg Q12HR PO Last administered on 06/24/17at 07:55; Start 06/17/17 at 11:30 Potassium Chloride 20 meq/ Lactated Ringer's 1,010 ml @ 42 mls/hr Q24H IV ; Start 06/17/17 at 12:45; Stop 06/17/17 at 13:02; Status DC Potassium Chloride 10 meq/ Lactated Ringer's 505 ml @ 42 mls/hr Q12H2M IV Last administered on 06/19/17at 22:32; Start 06/17/17 at 13:15; Stop 06/20/17 at 08:13; Status DC Pravastatin Sodium (Pravachol) 40 mg HS PO Last administered on 06/23/17at 20:19 ; Start 06/18/17 at 21:00 Potassium Phosphate 15 mmol/ Sodium Chloride 155 ml @ 38.75 mls/ hr ONCE ONCE IV Last administered on 06/19/17at 08:50; Start 06/19/17 at 08:00; Stop at 11:59; Status DC Metoprolol Tartrate (Lopressor) 25 mg Q12HR PO Last administered on 06/24/17at 07:55; Start 06/19/17 at 09:00 Pharmacy Profile Note 0 ml @ 0 mls/hr UNSCH OTHER ; Start 06/20/17 at 08:15; Stop 06/21/17 at 14:09; Status DC Albuterol/ Ipratropium (Duoneb Neb) 1 ampule Q6HR NEB NEB Last administered on 06/24/17at 07:16; Start 06/20/17 at 10:00; Stop 06/24/17 at 09:59; Status DC Vancomycin HCl 1250 mg/Sodium Chloride 262.5 ml @ 262.5 mls/ hr ONCE ONCE IV Last administered on 06/20/17at 13:29; Start 06/20/17 at 12:00; Stop 06/20/17 at 12:59; Status DC Hydralazine HCl (Apresoline Inj) 10 mg Q4H PRN IV PUSH SBP greater than 160 Last administered on 06/24/17at 07:11; Start 06/20/17 at 12:30 Potassium Phosphate 15 mmol/ Sodium Chloride 155 ml @ 38.75 mls/ hr ONCE ONCE IV Last administered on 06/20/17at 17:05; Start 06/20/17 at 13:45; Stop at 17:44; Status DC Furosemide (Lasix Inj) 40 mg ONCE ONCE IV PUSH Last administered on 06/21/17at 08:53; Start 06/21/17 at 08:30; Stop 06/21/17 at 08:31; Status DC Cefazolin Sodium/ Dextrose 50 ml @ 100 mls/hr Q8H IV Last administered on 06/24at 07:10; Start 06/21/17 at 15:00 (Andre Nixon MD) Medical Decision Making MDM Remarks 77 y/o female with large hemorrhagic stroke, she had evidence of hydrocephalus, she underwent placement of ventriculostomy drain 06/15/17 due to worsening mental status, now improving s/p extubation, (Bell Mooney) Plan Plan Remarks cont ventriculostomy draining at 5 cm H20, CSF still very bloody cont critical care nonchemical dvt prophylaxis in view of ICH serial neuro checks Neurologist following (Bell Mooney) Attending Statement Continue ventriculostomy drainage of cerebrospinal fluid as well as intracranial pressure monitoring 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 Extubated. Continue aggressive pulmonary toilette, nasotracheal suction, and breathing treatments with nebulizers. Daily PT and OT Nutrition. Tolerating Oral diet Renal. Continue to monitor closely urine output, BUN and creatinine Endocrine. Continue to Monitor serial Acu checks and SSI as needed in detail ID continue to monitor for signs of infection Continue Protonix for stress ulcer prophylaxis Continue Nickolas hose and SCD's for DVT prophylaxis The exam, history, and the medical decision-making described in the above note were completed with the assistance of the mid-level provider. I reviewed and agree with the findings presented. I attest that I had a [id number] encounter with the patient on the same day, and personally performed and documented my assessment and findings in the medical record. (Andre Nixon MD) Bell Mooney Jun 21, 2017 17:24 Andre Nixon MD Jun 24, 2017 13:56
[2017-06-21] MEDS: PRAVASTATIN SOD 40 MG TAB PO SCH (21:58)
[2017-06-22] VITALS (14 sets, daily range): BP systolic 103–154; BP diastolic 66–91; PULSE 62–101; RESP 15–22; TEMP 97.7–98.7; O2SAT 94–100
[2017-06-22] MEDS: ACETAMINOPHEN 325 MG TAB PO PRN ×2 (00:40→11:46)
[2017-06-22] MEDS: CHLORHEXIDINE GLUCONATE 2 % 1 PACK (2 CLOTHS) TOP SCH (04:00)
[2017-06-22] MEDS: RESP: ALBUTEROL 2.5 MG/IPRATROPIUM 0.5 MG NEB (SCH) NEB ×4 (04:39→22:02)
[2017-06-22 05:27] LABS: AUTOMATED NEUTROPHIL # 10.6 TH/MM3 (1.8-7.7); BASOPHIL % 0.1 % (0.0-2.0); EOSINOPHIL % 0.3 % (0.0-4.0); HEMATOCRIT 37.8 % (35.0-46.0); HEMOGLOBIN 12.7 GM/DL (11.6-15.3); LYMPHOCYTE # 1.5 TH/MM3 (1.0-4.8); MEAN CELL VOLUME 90.5 FL (80.0-100.0); MEAN CORPUSCULAR HEMOGLOBIN 30.4 PG (27.0-34.0); MEAN CORPUSCULAR HGB CONC 33.6 % (32.0-36.0); MEAN PLATELET VOLUME 9.3 FL (7.0-11.0); MONO % 9.6 % (0.0-8.0); MONOCYTE # 1.3 TH/MM3 (0-0.9); PLATELET COUNT 197 TH/MM3 (150-450); RED BLOOD COUNT 4.17 MIL/MM3 (4.00-5.30); RED CELL DISTRIBUTION WIDTH 13.5 % (11.6-17.2); WHITE BLOOD COUNT 13.5 TH/MM3 (4.0-11.0)
[2017-06-22] MEDS: ceFAZolin 2 GM PREMIX 50 ML IV SCH ×3 (05:38→21:39)
[2017-06-22 05:52] LABS: ALBUMIN 2.1 GM/DL (3.4-5.0); ALKALINE PHOSPHATASE 131 U/L (45-117); ALT (GPT) 36 U/L (10-53); AST (GOT) 39 U/L (15-37); BICARBONATE 28.2 MEQ/L (21.0-32.0); BLOOD UREA NITROGEN 34 MG/DL (7-18); CALCIUM 8.1 MG/DL (8.5-10.1); CHLORIDE 112 MEQ/L (98-107); CREATININE 0.94 MG/DL (0.50-1.00); GLOMERULAR FILTRATION RATE 57 ML/MIN (>89); GLUCOSE,RANDOM 147 MG/DL (74-106); MAGNESIUM 2.1 MG/DL (1.5-2.5); PHOSPHORUS 3.5 MG/DL (2.5-4.9); SODIUM (NA) 148 MEQ/L (136-145); TOTAL BILIRUBIN ADULT 0.7 MG/DL (0.2-1.0); TOTAL PROTEIN 6.2 GM/DL (6.4-8.2)
[2017-06-22] MEDS: CHLORHEXIDINE 0.12% (ORAL KIT) 15 ML CUP MT SCH ×2 (08:00→20:00)
[2017-06-22] MEDS: levETIRAcetam 500 MG TAB PO SCH ×2 (08:58→20:58)
[2017-06-22] MEDS: FAMOTIDINE 20 MG/2 ML VIAL IV PUSH SCH ×2 (08:58→20:59)
[2017-06-22] MEDS: METOPROLOL TARTRATE 25 MG TAB PO SCH ×2 (08:59→20:58)
[2017-06-22] MEDS: LACTULOSE SYRUP 20 GM/30 ML CUP PO PRN ×2 (08:59→20:58)
[2017-06-22] MEDS: DOCUSATE SODIUM 50 MG/SENNA 8.6 MG TAB PO SCH ×2 (08:59→20:58)
--- NOTE | 2017-06-22 09:14 | HHI.PR ---
Review/Management Diagnosis/Plan: (1) Intracranial hemorrhage ICD Codes: I62.9 - Nontraumatic intracranial hemorrhage, unspecified Status: Acute Plan: rt o-p ich large spontaneous, likely hypertensive mra brain- nml mri brain images reviewed francesco enamorado recs neuro improved icp drain removal per nsx d/c kent per ccm floor with tele once cleared by nsx and [facility] (2) Encephalopathy, metabolic ICD Codes: G93.41 - Metabolic encephalopathy Status: Acute Plan: due to ich (3) Hypertensive emergency ICD Codes: I16.1 - Hypertensive emergency Status: Acute Plan: improved on bp meds (4) CLAYTON (acute kidney injury) ICD Codes: N17.9 - Acute kidney failure, unspecified Status: Acute Subjective Subjective Comments No acute events reported No headache No chest pain No dyspnea Active Medications Current Medications Medications (Trade) Dose Ordered Sig/Jose Guadalupe Route Start Time Stop Time Status Last Admin (NS Flush) 2 ml UNSCH PRN IV FLUSH 06/15/17 05:15 06/21/17 00:43 Nicardipine HCl 25 mg/Sodium Chloride 250 ml @ 50 mls/hr TITRATE PRN IV 06/15/17 06:15 06/19/17 06:43 (Tylenol) 650 mg Q6H PRN PO 06/15/17 06:30 06/22/17 00:40 (Pepcid Inj) 10 mg Q12HR IV PUSH 06/15/17 09:00 06/22/17 08:58 (Zofran Inj) 4 mg Q6H PRN IV PUSH 06/15/17 06:30 (Duoneb Neb) 1 ampule Q4HR NEB PRN INH 06/15/17 06:30 Miscellaneous Information 1 Q361D XX 06/15/17 06:30 06/15/17 06:30 (Chlorhexidine 2% Cloth) Taper DAILY@04 TOP 06/16/17 04:00 06/12/18 03:59 06/20/17 04:00 (Chlorhexidine 2% Cloth) 3 pack UNSCH PRN TOP 06/15/17 06:30 ([place]-Colace) 1 tab BID PO 06/15/17 09:00 06/22/17 08:59 (Milk Of Magnesia Liq) 30 ml Q12H PRN PO 06/15/17 06:30 (Senokot) 17.2 mg Q12H PRN PO 06/15/17 06:30 (Dulcolax Supp) 10 mg DAILY PRN RECTAL 06/15/17 06:30 (Lactulose Liq) 30 ml DAILY PRN PO 06/15/17 06:30 06/22/17 08:59 (Peridex 0.12% Liq) 15 ml BID@08,20 MT 06/15/17 20:00 06/20/17 19:51 (Keppra) 500 mg Q12HR PO 06/17/17 11:30 06/22/17 08:58 (Pravachol) 40 mg HS PO 06/18/17 21:00 06/21/17 21:58 (Lopressor) 25 mg Q12HR PO 06/19/17 09:00 06/22/17 08:59 (Duoneb Neb) 1 ampule Q6HR NEB NEB 06/20/17 10:00 06/22/17 08:51 (Apresoline Inj) 10 mg Q4H PRN IV PUSH 06/20/17 12:30 06/21/17 17:56 Cefazolin Sodium/ Dextrose 50 ml @ 100 mls/hr Q8H IV 06/21/17 15:00 06/22/17 05:38 Allergies Allergies Coded Allergies No Known Allergies (Unverified Adverse Reaction, Unknown, 06/15/17) Review of Systems All other ROS: ROS reviewed as documented in chart Exam I&O / VS Vital Signs Date Time Temp Pulse Resp B/P (MAP) Pulse Ox O2 Delivery O2 Flow Rate FiO2 06/22/17 08:52 94 Nasal Cannula 3.00 06/22/17 06:00 90 06/22/17 04:00 62 06/22/17 04:00 97.8 62 16 103/67 (79) 95 06/22/17 02:00 85 06/22/17 00:00 97.7 92 17 138/66 (90) 95 06/22/17 00:00 92 06/21/17 22:00 98 06/21/17 21:23 95 Nasal Cannula 3.00 06/21/17 20:00 95 Nasal Cannula 3.00 06/21/17 20:00 98.7 98 20 146/82 (103) 95 06/21/17 20:00 90 06/21/17 18:00 96 06/21/17 16:00 100 06/21/17 16:00 98.7 100 22 140/82 (101) 94 06/21/17 14:00 89 06/21/17 12:00 98.8 89 19 152/84 (106) 94 06/21/17 12:00 89 06/21/17 10:21 92 Nasal Cannula 3.00 06/21/17 10:00 73 Exam Comments alert,follows, ox 2, not to date, ou 3-2.5mm , left hh, mild left le paresis 3 -4/5 Objective Micro and Labs Laboratory Tests Test 06/22/17 04:37 White Blood Count 13.5 Red Blood Count 4.17 Hemoglobin 12.7 Hematocrit 37.8 Mean Corpuscular Volume 90.5 Mean Corpuscular Hemoglobin 30.4 Mean Corpuscular Hemoglobin Concent 33.6 Red Cell Distribution Width 13.5 Platelet Count 197 Mean Platelet Volume 9.3 Neutrophils (%) (Auto) 79.0 Lymphocytes (%) (Auto) 11.0 Monocytes (%) (Auto) 9.6 Eosinophils (%) (Auto) 0.3 Basophils (%) (Auto) 0.1 Neutrophils # (Auto) 10.6 Lymphocytes # (Auto) 1.5 Monocytes # (Auto) 1.3 Eosinophils # (Auto) 0.0 Basophils # (Auto) 0.0 CBC Comment DIFF FINAL Differential Comment Blood Urea Nitrogen 34 Creatinine 0.94 Random Glucose 147 Total Protein 6.2 Albumin 2.1 Calcium Level 8.1 Phosphorus Level 3.5 Magnesium Level 2.1 Alkaline Phosphatase 131 Aspartate Amino Transf (AST/SGOT) 39 Alanine Aminotransferase (ALT/SGPT) 36 Total Bilirubin 0.7 Sodium Level 148 Potassium Level 3.6 Chloride Level 112 Carbon Dioxide Level 28.2 Anion Gap 8 Estimat Glomerular Filtration Rate 57 Date/Time Source Procedure Growth Status 06/15/17 05:26 Blood Peripheral Aerobic Blood Culture - Final NO GROWTH IN 5 DAYS Complete 06/15/17 05:26 Blood Peripheral Anaerobic Blood Culture - Final NO GROWTH IN 5 DAYS Complete 06/15/17 15:15 Cerebral Spinal Fluid Shunt Fluid Gram Stain - Final Complete 06/15/17 15:15 Cerebral Spinal Fluid Shunt Fluid CSF Culture - Final NO GROWTH IN 72 HOURS Complete 06/18/17 05:40 Sputum Endotracheal Gram Stain - Final Complete 06/18/17 05:40 Sputum Culture - Final Staphylococcus Aureus Klebsiella Pneumoniae Complete Jose Cruz Crowell MD Jun 22, 2017 09:14
[2017-06-22] MEDS: hydrALAZINE HCL 20 MG/ML VIAL IV PUSH PRN ×2 (11:11→17:31)
--- NOTE | 2017-06-22 13:59 | HHI.CCPN ---
Subjective Remarks/Hospital Course Admission Diagnosis Parenchymal Brain Hemorrhage Diagnosis: (1) Hemorrhagic stroke Diagnosis: Principal (2) Respiratory failure (3) Hypertensive urgency Diagnosis: Principal (4) Encephalopathy, metabolic Diagnosis: Principal (5) CLAYTON (acute kidney injury) Diagnosis: Secondary Severely dehydrated, elderly woman presents confused to [facility] ED with hypertensive urgency and semi-acute right hemispheric parenchymal brain hemorrhage. Arrived from [facility] on cardene gtt and aphasic. Handness not determined yet. Unable to get ROS. No anticoagulants. INR normal. 06/16: Flaccid left side. Minimal eye opening. Moves right arm and leg to stimulation. Breathes over vent. ICP control, EVD draining well. 06/17: Moving both arms, right much stronger. More alert but episodic apnea spells. 06/18: No events over the night. Patient remains intubated, off sedation. She is currently on pressure support, 01/04, doing well. Awake, following commands. Son present at bedside. T-max of 99.6. I/O 250/1545. 06/19: No events over the night. Patient did well yesterday on pressure support , but was not able to be extubated secondary to no cuff leak. She remains on Cardene currently at 9.5 mg/h. Afebrile with a T-max of 99.4. Negative fluid balance. 06/20: Patient did well over the night. T-max of 100.2. ICP of 4. Thick sputum secretions sent yesterday for culture now growing Staphylococcus. Patient is awake, off sedation following some commands. Off Cardene drip since yesterday. 06/21: Patient did well postextubation and over the night. T-max of 100 yesterday morning. Very good urine output. Patient awake following commands, denying any pain. 06/22: No events over the night. Patient doing well. She is awake and alert, denies headache, nausea, vomiting. No chest pain, no dyspnea, no palpitations. On 2 L nasal cannula. Afebrile over the last 24 hours. Diuresed well post Lasix and she is on negative fluid balance since admission. Objective Vital Signs Date Time Temp Pulse Resp B/P (MAP) Pulse Ox O2 Delivery O2 Flow Rate FiO2 06/22/17 10:00 101 06/22/17 08:52 94 Nasal Cannula 3.00 06/22/17 04:00 97.8 16 103/67 (79) 06/20/17 12:00 40 Intake and Output 06/22/17 06/22/17 06/23/17 08:00 16:00 00:00 Intake Total 690 ml Output Total 438 ml Balance 252 ml Result Diagram: 06/22/17 0437 06/22/17 0437 Imaging Last 24 hours Impressions Chest X-Ray 06/20/17 0600 Signed Impressions: Service Date/Time: Tuesday, June 20, 2017 04:35 - CONCLUSION: 1. ET tube tip is directed at the orifice of the right main bronchus and needs to be withdrawn 2.5 cm. 2. The right lung is better aerated than on prior examination , but there is left lower lobe consolidation. 3. Interval development of non-consolidative infiltrate in the right infrahilar region. Brandon Vaughn MD Last Impressions Head CT 06/15/17 0515 Signed Impressions: Service Date/Time: Thursday, June 15, 2017 05:59 - CONCLUSION: 1. 2.6 cm parenchymal hemorrhage in the posterior right temporal lobe with intraventricular extension. 2. There appears to be a small subarachnoid component over both parietal convexities. 3. Ventricular prominence with periventricular diminished attenuation characteristic of moderately severe small vessel ischemic demyelination. No midline shift Ariel Frederick MD Chest X-Ray 06/15/17 0515 Signed Impressions: Service Date/Time: Thursday, June 15, 2017 06:15 - CONCLUSION: 1. Minimal left perihilar scarring/fibrosis. Lungs are otherwise clear. 2. Fullness of the upper mediastinum I believe is due to some uncoiling of the thoracic aorta. Trachea remains midline. 3. Borderline prominent but well compensated heart. Ariel Frederick MD Head Magnetic Resonance Angiography 06/15/17 0000 Signed Impressions: Service Date/Time: Thursday, June 15, 2017 11:52 - CONCLUSION: MRA within normal limits. There is a parenchymal hemorrhage in the posterior right temporal lobe with intraventricular extension. Ivan Bahena MD Brain MRI 06/15/17 0000 Signed Impressions: Service Date/Time: Thursday, June 15, 2017 11:52 - CONCLUSION: 1. Large hemorrhage in the right posterior temporal lobe with rupture into the ventricular system and mild ventricular enlargement. Findings most characteristic of a hemorrhagic infarct. On followup exam would recommend contrast to exclude an enhancing underlying lesion. 2. Moderate chronic ischemic changes in periventricular white matter. No significant midline shift. Ivan Bahena MD Objective Remarks General - elderly lady, awake, ill-appearing HEENT - pupils equal and reactive, sclerae anicteric, neck supple, no JVD, + EVD CV - regular S1 and S2, no murmurs Chest - clear bilateral, no wheezes Abdomen - soft, not distended, non-tender, BS decreased Extremities - 1+ edema, + peripheral pulses, warm Neuro - awake, alert, oriented 2, no facial asymmetry, pupils equal, reactive, EOMI, tongue midline, shrugs shoulders, motor 4/5 over both upper extremities, wiggles toes bilateral A/P Problem List: (1) Hemorrhagic stroke ICD Code: I61.9 - Nontraumatic intracerebral hemorrhage, unspecified Status: Acute (2) Hypertensive urgency ICD Code: I16.0 - Hypertensive urgency Status: Acute (3) Encephalopathy, metabolic ICD Code: G93.41 - Metabolic encephalopathy Status: Acute (4) CLAYTON (acute kidney injury) ICD Code: N17.9 - Acute kidney failure, unspecified Status: Acute Assessment and Plan 1. Right temporal intraparenchymal hemorrhage status post EVD placement 2. Hypertensive emergency -improved, off Cardene 3. Acute respiratory failure due to inability to protect the airway -patient extubated, doing well 4. Staphylococcus and Klebsiella pneumonia -afebrile, WBC unchanged 5. Acute encephalopathy -significantly improved since admission 6. Mild hypernatremia -better 7. Hyperlipidemia 1. Continue neuro checks 2. EVD per neurosurgery 3. On metoprolol, keep SBP less than 160 4. Bronchodilators 5. Supplemental O2 to keep SPO2 above 92% 6. On Keppra prophylaxis 7. Antibiotic narrowed to cefazolin 8. On pured diet 9. No chemical DVT px. 10. SCDs. 11. GI prophylaxis Patient's condition is improved however she remains weak and at high risk for further complications. No family at bedside this morning. Discussed with both sons extensively yesterday at bedside. Matt Trammell MD Jun 22, 2017 13:59
--- NOTE | 2017-06-22 16:01 | HHI.NSPN ---
History Interval History Nurses report patient continues to improve. No significant complaints System Review Comments No change Exam Results Vital Signs Date Time Temp Pulse Resp B/P (MAP) Pulse Ox O2 Delivery O2 Flow Rate FiO2 06/22/17 12:00 98.7 96 20 121/73 (89) 95 06/22/17 08:52 Nasal Cannula 3.00 06/20/17 12:00 40 Intake and Output 06/22/17 06/22/17 06/23/17 08:00 16:00 00:00 Intake Total 690 ml Output Total 438 ml Balance 252 ml Physical Examination Patient tends to awaken easily. Follow simple commands ICP remains within normal range Medical Decision Making Impression and Plan Patient is stable. ICP is controlled Will obtain repeat CT. Continue close support Juan Souza MD Jun 22, 2017 16:01
[2017-06-22] MEDS: PRAVASTATIN SOD 40 MG TAB PO SCH (20:58)
[2017-06-23] VITALS (15 sets, daily range): BP systolic 133–179; BP diastolic 67–86; PULSE 67–100; RESP 16–21; TEMP 97.6–98.9; O2SAT 95–100
--- NOTE | 2017-06-23 01:54 | RADRPT ---
EXAM DATE/TIME: 06/23/2017 01:30 [place] COMPARISON: CT BRAIN W/O CONTRAST, June 15, 2017, 5:59. INDICATIONS : Follow up intracranial hemorrhage.. RADIATION DOSE: 41.36 CTDIvol (mGy) MEDICAL HISTORY : Hypertension. Cerebrovascular disease. SURGICAL HISTORY : None. ENCOUNTER: Subsequent ACUITY: 1 week PAIN SCALE: 0/10 LOCATION: cranial TECHNIQUE: Multiple contiguous axial images were obtained of the head. Using automated exposure control and adj ustment of the mA and/or kV according to patient size, radiation dose was kept as low as reasonably a chievable to obtain optimal diagnostic quality images. DICOM format image data is available electro nically for review and comparison. FINDINGS: There has been interval placement of a ventricular shunt catheter via a right frontal approach w ith the tip in the anterior horn of the right lateral ventricle. The size of ventricles has decreased mildly and there is mildly decreased intraventricular hemorrhage. The high density intraparenchymal hemorrhage in the right parietal lobe has decreased mildly in size and is more indistinct. The previo usly noted subtle subarachnoid hemorrhage seen on the prior study is no longer distinctly visualized. There is no new hemorrhage or mass effect. The posterior fossa and brainstem remain intact. CONCLUSION: 1. Interval placement of intraventricular shunt catheter with mild decrease in the size of the ventri cular system and intraventricular hemorrhage. 2. Mild evolution of the intraparenchymal hemorrhage which is slightly smaller in size and more indis tinct. 3. The subtle subarachnoid hemorrhage noted on the prior study is no longer distinctly visualized. No new hemorrhage or mass effect. Torrey Mccord MD on June 23, 2017 at 1:41 Board Certified Radiologist. This report was verified electronically.
[2017-06-23] MEDS: hydrALAZINE HCL 20 MG/ML VIAL IV PUSH PRN (03:16)
[2017-06-23] MEDS: RESP: ALBUTEROL 2.5 MG/IPRATROPIUM 0.5 MG NEB (SCH) NEB ×4 (03:40→21:17)
[2017-06-23] MEDS: CHLORHEXIDINE GLUCONATE 2 % 1 PACK (2 CLOTHS) TOP SCH ×2 (04:00→20:19)
[2017-06-23] MEDS: ceFAZolin 2 GM PREMIX 50 ML IV SCH ×3 (05:16→23:00)
[2017-06-23] MEDS: CHLORHEXIDINE 0.12% (ORAL KIT) 15 ML CUP MT SCH ×2 (07:23→20:00)
[2017-06-23] MEDS: DOCUSATE SODIUM 50 MG/SENNA 8.6 MG TAB PO SCH ×2 (08:18→20:19)
[2017-06-23] MEDS: levETIRAcetam 500 MG TAB PO SCH ×2 (08:18→20:19)
[2017-06-23] MEDS: METOPROLOL TARTRATE 25 MG TAB PO SCH ×2 (08:18→20:18)
[2017-06-23] MEDS: FAMOTIDINE 20 MG/2 ML VIAL IV PUSH SCH ×2 (08:18→20:18)
--- NOTE | 2017-06-23 10:42 | HHI.CCPN ---
Subjective Remarks/Hospital Course Admission Diagnosis Parenchymal Brain Hemorrhage Diagnosis: (1) Hemorrhagic stroke Diagnosis: Principal (2) Respiratory failure (3) Hypertensive urgency Diagnosis: Principal (4) Encephalopathy, metabolic Diagnosis: Principal (5) CLAYTON (acute kidney injury) Diagnosis: Secondary Severely dehydrated, elderly woman presents confused to [facility] ED with hypertensive urgency and semi-acute right hemispheric parenchymal brain hemorrhage. Arrived from [facility] on cardene gtt and aphasic. Handness not determined yet. Unable to get ROS. No anticoagulants. INR normal. 06/16: Flaccid left side. Minimal eye opening. Moves right arm and leg to stimulation. Breathes over vent. ICP control, EVD draining well. 06/17: Moving both arms, right much stronger. More alert but episodic apnea spells. 06/18: No events over the night. Patient remains intubated, off sedation. She is currently on pressure support, 01/04, doing well. Awake, following commands. Son present at bedside. T-max of 99.6. I/O 250/1545. 06/19: No events over the night. Patient did well yesterday on pressure support , but was not able to be extubated secondary to no cuff leak. She remains on Cardene currently at 9.5 mg/h. Afebrile with a T-max of 99.4. Negative fluid balance. 06/20: Patient did well over the night. T-max of 100.2. ICP of 4. Thick sputum secretions sent yesterday for culture now growing Staphylococcus. Patient is awake, off sedation following some commands. Off Cardene drip since yesterday. 06/21: Patient did well postextubation and over the night. T-max of 100 yesterday morning. Very good urine output. Patient awake following commands, denying any pain. 06/22: No events over the night. Patient doing well. She is awake and alert, denies headache, nausea, vomiting. No chest pain, no dyspnea, no palpitations. On 2 L nasal cannula. Afebrile over the last 24 hours. Diuresed well post Lasix and she is on negative fluid balance since admission. 06/23: Patient awake, feels better, denies chest pain, shortness of breath, palpitations, headache. Still has productive cough. Afebrile, urine output is adequate. Objective Vital Signs Date Time Temp Pulse Resp B/P (MAP) Pulse Ox O2 Delivery O2 Flow Rate FiO2 06/23/17 10:00 89 06/23/17 08:00 98.9 19 136/67 (90) 97 06/23/17 07:19 Nasal Cannula 2.00 06/20/17 12:00 40 Intake and Output 06/23/17 06/23/17 06/24/17 08:00 16:00 00:00 Intake Total 480 ml Output Total 665 ml Balance -185 ml Result Diagram: 06/22/177 06/22/17 0437 Imaging Last 24 hours Impressions Chest X-Ray 06/20/17 0600 Signed Impressions: Service Date/Time: Tuesday, June 20, 2017 04:35 - CONCLUSION: 1. ET tube tip is directed at the orifice of the right main bronchus and needs to be withdrawn 2.5 cm. 2. The right lung is better aerated than on prior examination , but there is left lower lobe consolidation. 3. Interval development of non-consolidative infiltrate in the right infrahilar region. Brandon Vaughn MD Last Impressions Head CT 06/15/17514 Signed Impressions: Service Date/Time: Thursday, June 15, 2017 05:59 - CONCLUSION: 1. 2.6 cm parenchymal hemorrhage in the posterior right temporal lobe with intraventricular extension. 2. There appears to be a small subarachnoid component over both parietal convexities. 3. Ventricular prominence with periventricular diminished attenuation characteristic of moderately severe small vessel ischemic demyelination. No midline shift Ariel Frederick MD Chest X-Ray 06/15/1715 Signed Impressions: Service Date/Time: Thursday, June 15, 2017 06:15 - CONCLUSION: 1. Minimal left perihilar scarring/fibrosis. Lungs are otherwise clear. 2. Fullness of the upper mediastinum I believe is due to some uncoiling of the thoracic aorta. Trachea remains midline. 3. Borderline prominent but well compensated heart. Ariel Frederick MD Head Magnetic Resonance Angiography 06/15/17 0000 Signed Impressions: Service Date/Time: Thursday, June 15, 2017 11:52 - CONCLUSION: MRA within normal limits. There is a parenchymal hemorrhage in the posterior right temporal lobe with intraventricular extension. Ivan Bahena MD Brain MRI 06/15/17 0000 Signed Impressions: Service Date/Time: Thursday, June 15, 2017 11:52 - CONCLUSION: 1. Large hemorrhage in the right posterior temporal lobe with rupture into the ventricular system and mild ventricular enlargement. Findings most characteristic of a hemorrhagic infarct. On followup exam would recommend contrast to exclude an enhancing underlying lesion. 2. Moderate chronic ischemic changes in periventricular white matter. No significant midline shift. Ivan Bahena MD Objective Remarks General - elderly lady, awake, in no distress HEENT - pupils equal, reactive, sclerae anicteric, neck supple, no JVD, + EVD CV - regular S1-S2, no murmurs, rubs or gallops Chest - clear bilateral, no wheezes Abdomen - soft, nontender, not distended, BS present Extremities -warm and well-perfused, 1+ edema, + peripheral pulses Neuro - awake, alert, follows commands, no facial asymmetry, pupils equal and reactive, EOMI, tongue midline, shrugs shoulders, squeezes fingers on both upper extremities, wiggles toes A/P Problem List: (1) Hemorrhagic stroke ICD Code: I61.9 - Nontraumatic intracerebral hemorrhage, unspecified Status: Acute (2) Hypertensive urgency ICD Code: I16.0 - Hypertensive urgency Status: Acute (3) Encephalopathy, metabolic ICD Code: G93.41 - Metabolic encephalopathy Status: Acute (4) CLAYTON (acute kidney injury) ICD Code: N17.9 - Acute kidney failure, unspecified Status: Acute Assessment and Plan 1. Right temporal intraparenchymal hemorrhage status post EVD placement 2. Hypertensive emergency -resolved 3. Acute respiratory failure due to inability to protect the airway -patient extubated, doing well 4. Staphylococcus and Klebsiella pneumonia -afebrile, WBC trending down 5. Acute encephalopathy -significantly improved since admission 6. Mild hypernatremia -better 7. Hyperlipidemia 1. Continue neuro checks 2. EVD per neurosurgery 3. On metoprolol, keep SBP less than 160 4. Bronchodilators 5. Supplemental O2 to keep SPO2 above 92% 6. On Keppra prophylaxis 7. Antibiotic narrowed to cefazolin 8. On pured diet 9. No chemical DVT px. until neurosurgery agrees 10. SCDs. 11. GI prophylaxis 12. Remove Box catheter Patient's condition is improved however she remains weak and at high risk for further complications. No family at bedside this morning. Matt Trammell MD Jun 23, 2017 10:42
[2017-06-23 14:28] LABS: AUTOMATED NEUTROPHIL # 8.8 TH/MM3 (1.8-7.7); BASOPHIL % 0.1 % (0.0-2.0); EOSINOPHIL # 0.1 TH/MM3 (0-0.4); EOSINOPHIL % 0.5 % (0.0-4.0); HEMATOCRIT 32.7 % (35.0-46.0); HEMOGLOBIN 11.7 GM/DL (11.6-15.3); LYMPH % 13.4 % (9.0-44.0); LYMPHOCYTE # 1.6 TH/MM3 (1.0-4.8); MEAN CELL VOLUME 89.2 FL (80.0-100.0); MEAN CORPUSCULAR HEMOGLOBIN 31.9 PG (27.0-34.0); MEAN CORPUSCULAR HGB CONC 35.7 % (32.0-36.0); MEAN PLATELET VOLUME 9.1 FL (7.0-11.0); MONO % 11.4 % (0.0-8.0); MONOCYTE # 1.3 TH/MM3 (0-0.9); NEUT % 74.6 % (16.0-70.0); PLATELET COUNT 182 TH/MM3 (150-450); RED BLOOD COUNT 3.66 MIL/MM3 (4.00-5.30); RED CELL DISTRIBUTION WIDTH 13.5 % (11.6-17.2); WHITE BLOOD COUNT 11.8 TH/MM3 (4.0-11.0)
[2017-06-23 15:13] LABS: BICARBONATE 28.1 MEQ/L (21.0-32.0); CREATININE 0.79 MG/DL (0.50-1.00)
--- NOTE | 2017-06-23 15:28 | HHI.NSPN ---
History Interval History Nurses report patient continues to improve. No significant complaints Exam Results Vital Signs Date Time Temp Pulse Resp B/P (MAP) Pulse Ox O2 Delivery O2 Flow Rate FiO2 06/23/17 14:00 72 06/23/17 12:30 146/72 (96) 06/23/17 12:00 98.9 16 95 06/23/17 07:19 Nasal Cannula 2.00 06/20/17 12:00 40 Intake and Output 06/23/17 06/23/17 06/24/17 08:00 16:00 00:00 Intake Total 480 ml Output Total 665 ml Balance -185 ml Physical Examination Patient remains intubated, no acute distress ventriculostomy drain in place at 5 cm H20, draining dark red CSF well. pupils equal, nonicteric sclera. ET tube in place Appears lethargic but awakens, follows commands Moves all extremities Lab, Micro, Other Results CT reviewed ventriculostomy in place hemorrhage is somewhat smaller and in evolution Medical Decision Making Impression and Plan Patient is stable. ICP is controlled Continue close support Juan Souza MD Jun 23, 2017 15:28
[2017-06-23] MEDS: ACETAMINOPHEN 325 MG TAB PO PRN (20:18)
[2017-06-23] MEDS: PRAVASTATIN SOD 40 MG TAB PO SCH (20:19)
[2017-06-24] VITALS (13 sets, daily range): BP systolic 135–166; BP diastolic 72–86; PULSE 62–98; RESP 14–27; TEMP 97.8–98.8; O2SAT 96–97
[2017-06-24] MEDS: RESP: ALBUTEROL 2.5 MG/IPRATROPIUM 0.5 MG NEB (SCH) NEB ×2 (03:45→07:16)
[2017-06-24 06:23] LABS: AUTOMATED NEUTROPHIL # 8.2 TH/MM3 (1.8-7.7); BASOPHIL % 0.2 % (0.0-2.0); EOSINOPHIL # 0.1 TH/MM3 (0-0.4); EOSINOPHIL % 0.6 % (0.0-4.0); HEMATOCRIT 34.4 % (35.0-46.0); LYMPH % 14.5 % (9.0-44.0); LYMPHOCYTE # 1.6 TH/MM3 (1.0-4.8); MEAN CELL VOLUME 88.5 FL (80.0-100.0); MEAN CORPUSCULAR HEMOGLOBIN 30.8 PG (27.0-34.0); MEAN CORPUSCULAR HGB CONC 34.8 % (32.0-36.0); MEAN PLATELET VOLUME 8.7 FL (7.0-11.0); MONO % 10.2 % (0.0-8.0); MONOCYTE # 1.1 TH/MM3 (0-0.9); NEUT % 74.5 % (16.0-70.0); PLATELET COUNT 177 TH/MM3 (150-450); RED BLOOD COUNT 3.89 MIL/MM3 (4.00-5.30); RED CELL DISTRIBUTION WIDTH 13.6 % (11.6-17.2)
[2017-06-24 06:52] LABS: ALBUMIN 2.1 GM/DL (3.4-5.0); AST (GOT) 58 U/L (15-37); BICARBONATE 26.8 MEQ/L (21.0-32.0); CALCIUM 8.2 MG/DL (8.5-10.1); CHLORIDE 103 MEQ/L (98-107); CREATININE 0.81 MG/DL (0.50-1.00); GLOMERULAR FILTRATION RATE 68 ML/MIN (>89); GLUCOSE,RANDOM 112 MG/DL (74-106); MAGNESIUM 2.1 MG/DL (1.5-2.5); SODIUM (NA) 139 MEQ/L (136-145)
[2017-06-24 06:53] LABS: ALT (GPT) 20 U/L (10-53); PHOSPHORUS 3.2 MG/DL (2.5-4.9)
[2017-06-24 06:55] LABS: ALKALINE PHOSPHATASE 111 U/L (45-117); TOTAL BILIRUBIN ADULT 0.8 MG/DL (0.2-1.0); TOTAL PROTEIN 6.2 GM/DL (6.4-8.2)
[2017-06-24] MEDS: ceFAZolin 2 GM PREMIX 50 ML IV SCH ×2 (07:10→15:02)
[2017-06-24] MEDS: hydrALAZINE HCL 20 MG/ML VIAL IV PUSH PRN (07:11)
[2017-06-24 07:15] LABS: BLOOD UREA NITROGEN 23 MG/DL (7-18)
[2017-06-24] MEDS: CHLORHEXIDINE 0.12% (ORAL KIT) 15 ML CUP MT SCH ×2 (07:55→20:00)
[2017-06-24] MEDS: DOCUSATE SODIUM 50 MG/SENNA 8.6 MG TAB PO SCH ×2 (07:55→20:38)
[2017-06-24] MEDS: levETIRAcetam 500 MG TAB PO SCH ×2 (07:55→20:38)
[2017-06-24] MEDS: FAMOTIDINE 20 MG/2 ML VIAL IV PUSH SCH ×2 (07:55→20:38)
[2017-06-24] MEDS: METOPROLOL TARTRATE 25 MG TAB PO SCH ×2 (07:55→20:38)
--- NOTE | 2017-06-24 11:54 | HHI.NSPN ---
History Interval History Nurses report patient continues to improve. No significant complaints Exam Results Vital Signs Date Time Temp Pulse Resp B/P (MAP) Pulse Ox O2 Delivery O2 Flow Rate FiO2 06/24/17 08:00 92 06/24/17 08:00 98.0 20 141/78 (99) 96 06/24/17 07:17 Nasal Cannula 2.00 06/20/17 12:00 40 Intake and Output 06/24/17 06/24/17 06/25/17 08:00 16:00 00:00 Intake Total 240 ml Output Total 60 ml Balance 180 ml Physical Examination Patient remains intubated, no acute distress ventriculostomy drain in place at 10 cm H20, draining dark red CSF well. pupils equal, nonicteric sclera. ET tube in place Appears lethargic but awakens, follows commands Moves all extremities Medical Decision Making Impression and Plan Patient is stable. ICP is controlled Continue close support Juan Souza MD Jun 24, 2017 11:54
--- NOTE | 2017-06-24 12:41 | HHI.CCPN ---
Subjective Remarks/Hospital Course Admission Diagnosis Parenchymal Brain Hemorrhage Diagnosis: (1) Hemorrhagic stroke Diagnosis: Principal (2) Respiratory failure (3) Hypertensive urgency Diagnosis: Principal (4) Encephalopathy, metabolic Diagnosis: Principal (5) CLAYTON (acute kidney injury) Diagnosis: Secondary Severely dehydrated, elderly woman presents confused to [facility] ED with hypertensive urgency and semi-acute right hemispheric parenchymal brain hemorrhage. Arrived from [facility] on cardene gtt and aphasic. Handness not determined yet. Unable to get ROS. No anticoagulants. INR normal. 06/16: Flaccid left side. Minimal eye opening. Moves right arm and leg to stimulation. Breathes over vent. ICP control, EVD draining well. 06/17: Moving both arms, right much stronger. More alert but episodic apnea spells. 06/18: No events over the night. Patient remains intubated, off sedation. She is currently on pressure support, 01/04, doing well. Awake, following commands. Son present at bedside. T-max of 99.6. I/O 250/1545. 06/19: No events over the night. Patient did well yesterday on pressure support , but was not able to be extubated secondary to no cuff leak. She remains on Cardene currently at 9.5 mg/h. Afebrile with a T-max of 99.4. Negative fluid balance. 06/20: Patient did well over the night. T-max of 100.2. ICP of 4. Thick sputum secretions sent yesterday for culture now growing Staphylococcus. Patient is awake, off sedation following some commands. Off Cardene drip since yesterday. 06/21: Patient did well postextubation and over the night. T-max of 100 yesterday morning. Very good urine output. Patient awake following commands, denying any pain. 06/22: No events over the night. Patient doing well. She is awake and alert, denies headache, nausea, vomiting. No chest pain, no dyspnea, no palpitations. On 2 L nasal cannula. Afebrile over the last 24 hours. Diuresed well post Lasix and she is on negative fluid balance since admission. 06/23: Patient awake, feels better, denies chest pain, shortness of breath, palpitations, headache. Still has productive cough. Afebrile, urine output is adequate. 06/24: No events over the night. Patient afebrile over the last 24 hours. She remains awake, resting in bed, denies any complaints. Sons at bedside. Objective Vital Signs Date Time Temp Pulse Resp B/P (MAP) Pulse Ox O2 Delivery O2 Flow Rate FiO2 06/24/17 08:00 92 06/24/17 08:00 98.0 20 141/78 (99) 96 06/24/17 07:17 Nasal Cannula 2.00 06/20/17 12:00 40 Intake and Output 06/24/17 06/24/17 06/24/17 07:59 15:59 23:59 Intake Total 240 ml Output Total 60 ml Balance 180 ml Result Diagram: 06/24/17 0533 06/24/17 0530 Imaging Last 24 hours Impressions Chest X-Ray 06/20/17 0600 Signed Impressions: Service Date/Time: Tuesday, June 20, 2017 04:35 - CONCLUSION: 1. ET tube tip is directed at the orifice of the right main bronchus and needs to be withdrawn 2.5 cm. 2. The right lung is better aerated than on prior examination , but there is left lower lobe consolidation. 3. Interval development of non-consolidative infiltrate in the right infrahilar region. Brandon Vaughn MD Last Impressions Head CT 06/15/17514 Signed Impressions: Service Date/Time: Thursday, June 15, 2017 05:59 - CONCLUSION: 1. 2.6 cm parenchymal hemorrhage in the posterior right temporal lobe with intraventricular extension. 2. There appears to be a small subarachnoid component over both parietal convexities. 3. Ventricular prominence with periventricular diminished attenuation characteristic of moderately severe small vessel ischemic demyelination. No midline shift Ariel Frederick MD Chest X-Ray 06/15/17514 Signed Impressions: Service Date/Time: Thursday, June 15, 2017 06:15 - CONCLUSION: 1. Minimal left perihilar scarring/fibrosis. Lungs are otherwise clear. 2. Fullness of the upper mediastinum I believe is due to some uncoiling of the thoracic aorta. Trachea remains midline. 3. Borderline prominent but well compensated heart. Ariel Frederick MD Head Magnetic Resonance Angiography 06/15/17 0000 Signed Impressions: Service Date/Time: Thursday, June 15, 2017 11:52 - CONCLUSION: MRA within normal limits. There is a parenchymal hemorrhage in the posterior right temporal lobe with intraventricular extension. Ivan Bahena MD Brain MRI 06/15/17 0000 Signed Impressions: Service Date/Time: Thursday, June 15, 2017 11:52 - CONCLUSION: 1. Large hemorrhage in the right posterior temporal lobe with rupture into the ventricular system and mild ventricular enlargement. Findings most characteristic of a hemorrhagic infarct. On followup exam would recommend contrast to exclude an enhancing underlying lesion. 2. Moderate chronic ischemic changes in periventricular white matter. No significant midline shift. Ivan Bahena MD Objective Remarks General - elderly lady, awake, in no distress HEENT - pupils are equal and reactive, sclerae are anicteric, neck is supple, neck veins are not distended, + EVD, moist mucous membranes CV - regular heart sounds, no murmurs, rubs or gallops Chest - clear bilateral, no wheezes Abdomen - soft, nontender, not distended, BS present Extremities -warm, 1+ edema, + peripheral pulses Neuro - unchanged, awake, alert, follows commands, no facial asymmetry, pupils equal and reactive, EOMI, tongue midline, shrugs shoulders, squeezes fingers on both upper extremities, wiggles toes A/P Problem List: (1) Hemorrhagic stroke ICD Code: I61.9 - Nontraumatic intracerebral hemorrhage, unspecified Status: Acute (2) Hypertensive urgency ICD Code: I16.0 - Hypertensive urgency Status: Acute (3) Encephalopathy, metabolic ICD Code: G93.41 - Metabolic encephalopathy Status: Acute (4) [place] (acute kidney injury) ICD Code: N17.9 - Acute kidney failure, unspecified Status: Acute Assessment and Plan 1. Right temporal intraparenchymal hemorrhage status post EVD placement 2. Hypertensive emergency -resolved 3. Acute respiratory failure due to inability to protect the airway -patient extubated, doing well 4. Staphylococcus and Klebsiella pneumonia -afebrile, WBC trending down 5. Acute encephalopathy -significantly improved since admission 6. Mild hypernatremia -better 7. Hyperlipidemia 1. Continue neuro checks 2. EVD per neurosurgery 3. On metoprolol, keep SBP less than 160 4. Bronchodilators 5. Supplemental O2 to keep SPO2 above 92%. Patient encouraged to use the incentive spirometer 6. On Keppra prophylaxis 7. Antibiotic narrowed to cefazolin day 07/07 8. On pured diet. Advance per speech therapy 9. No chemical DVT px. until neurosurgery agrees 10. SCDs. 11. GI prophylaxis 12. Box catheter removed Discussed with both sons present at bedside. Matt Trammell MD Jun 24, 2017 12:41
[2017-06-24] MEDS: PRAVASTATIN SOD 40 MG TAB PO SCH (20:38)
[2017-06-24] MEDS: CEFAZOLIN INJ 2,000 MG in SODIUM CHLORIDE 0.9% INJ 100 ML IV SCH (22:06)
[2017-06-25] VITALS (14 sets, daily range): BP systolic 116–156; BP diastolic 64–74; PULSE 55–90; RESP 15–20; TEMP 98–98.5; O2SAT 94–98
[2017-06-25] MEDS: CHLORHEXIDINE GLUCONATE 2 % 1 PACK (2 CLOTHS) TOP SCH (04:00)
[2017-06-25 05:53] LABS: ALBUMIN 2.2 GM/DL (3.4-5.0); AST (GOT) 67 U/L (15-37); BICARBONATE 25.7 MEQ/L (21.0-32.0); BLOOD UREA NITROGEN 23 MG/DL (7-18); CALCIUM 8.1 MG/DL (8.5-10.1); CHLORIDE 99 MEQ/L (98-107); CREATININE 0.78 MG/DL (0.50-1.00); GLOMERULAR FILTRATION RATE 71 ML/MIN (>89); GLUCOSE,RANDOM 100 MG/DL (74-106); MAGNESIUM 1.9 MG/DL (1.5-2.5); SODIUM (NA) 134 MEQ/L (136-145)
[2017-06-25 05:54] LABS: ALT (GPT) 25 U/L (10-53); PHOSPHORUS 2.8 MG/DL (2.5-4.9)
[2017-06-25 05:56] LABS: ALKALINE PHOSPHATASE 117 U/L (45-117); TOTAL BILIRUBIN ADULT 0.7 MG/DL (0.2-1.0); TOTAL PROTEIN 5.9 GM/DL (6.4-8.2)
[2017-06-25 06:49] LABS: AUTOMATED NEUTROPHIL # 10.3 TH/MM3 (1.8-7.7); BASOPHIL % 0.2 % (0.0-2.0); EOSINOPHIL # 0.1 TH/MM3 (0-0.4); EOSINOPHIL % 0.6 % (0.0-4.0); HEMATOCRIT 32.9 % (35.0-46.0); HEMOGLOBIN 11.3 GM/DL (11.6-15.3); LYMPH % 14.4 % (9.0-44.0); LYMPHOCYTE # 1.9 TH/MM3 (1.0-4.8); MEAN CELL VOLUME 88.7 FL (80.0-100.0); MEAN CORPUSCULAR HEMOGLOBIN 30.6 PG (27.0-34.0); MEAN CORPUSCULAR HGB CONC 34.5 % (32.0-36.0); MONO % 8.8 % (0.0-8.0); MONOCYTE # 1.2 TH/MM3 (0-0.9); PLATELET COUNT 204 TH/MM3 (150-450); RED CELL DISTRIBUTION WIDTH 12.9 % (11.6-17.2); WHITE BLOOD COUNT 13.5 TH/MM3 (4.0-11.0)
[2017-06-25] MEDS: CHLORHEXIDINE 0.12% (ORAL KIT) 15 ML CUP MT SCH ×2 (08:00→20:00)
[2017-06-25] MEDS: CEFAZOLIN INJ 2,000 MG in SODIUM CHLORIDE 0.9% INJ 100 ML IV SCH ×3 (08:44→22:04)
[2017-06-25] MEDS: METOPROLOL TARTRATE 25 MG TAB PO SCH ×2 (08:45→21:13)
[2017-06-25] MEDS: FAMOTIDINE 20 MG/2 ML VIAL IV PUSH SCH (08:45)
[2017-06-25] MEDS: levETIRAcetam 500 MG TAB PO SCH ×2 (08:45→21:13)
[2017-06-25] MEDS: DOCUSATE SODIUM 50 MG/SENNA 8.6 MG TAB PO SCH ×2 (08:45→21:13)
--- NOTE | 2017-06-25 10:12 | HHI.CCPN ---
Subjective Remarks/Hospital Course Admission Diagnosis Parenchymal Brain Hemorrhage Diagnosis: (1) Hemorrhagic stroke Diagnosis: Principal (2) Respiratory failure (3) Hypertensive urgency Diagnosis: Principal (4) Encephalopathy, metabolic Diagnosis: Principal (5) CLAYTON (acute kidney injury) Diagnosis: Secondary Severely dehydrated, elderly woman presents confused to [facility] ED with hypertensive urgency and semi-acute right hemispheric parenchymal brain hemorrhage. Arrived from [facility] on cardene gtt and aphasic. Handness not determined yet. Unable to get ROS. No anticoagulants. INR normal. 06/16: Flaccid left side. Minimal eye opening. Moves right arm and leg to stimulation. Breathes over vent. ICP control, EVD draining well. 06/17: Moving both arms, right much stronger. More alert but episodic apnea spells. 06/18: No events over the night. Patient remains intubated, off sedation. She is currently on pressure support, 01/04, doing well. Awake, following commands. Son present at bedside. T-max of 99.6. I/O 250/1545. 06/19: No events over the night. Patient did well yesterday on pressure support , but was not able to be extubated secondary to no cuff leak. She remains on Cardene currently at 9.5 mg/h. Afebrile with a T-max of 99.4. Negative fluid balance. 06/20: Patient did well over the night. T-max of 100.2. ICP of 4. Thick sputum secretions sent yesterday for culture now growing Staphylococcus. Patient is awake, off sedation following some commands. Off Cardene drip since yesterday. 06/21: Patient did well postextubation and over the night. T-max of 100 yesterday morning. Very good urine output. Patient awake following commands, denying any pain. 06/22: No events over the night. Patient doing well. She is awake and alert, denies headache, nausea, vomiting. No chest pain, no dyspnea, no palpitations. On 2 L nasal cannula. Afebrile over the last 24 hours. Diuresed well post Lasix and she is on negative fluid balance since admission. 06/23: Patient awake, feels better, denies chest pain, shortness of breath, palpitations, headache. Still has productive cough. Afebrile, urine output is adequate. 06/24: No events over the night. Patient afebrile over the last 24 hours. She remains awake, resting in bed, denies any complaints. Sons at bedside. 06/25: Resting comfortably. Drowsy, arousable. EVD at 15cm, drained 60 cc overnight. Objective Vital Signs Date Time Temp Pulse Resp B/P (MAP) Pulse Ox O2 Delivery O2 Flow Rate FiO2 06/25/17 07:37 96 Nasal Cannula 2.00 06/25/17 06:00 68 06/25/17 04:00 98.1 16 136/64 (88) Intake and Output 06/25/17 06/25/17 06/26/17 08:00 16:00 00:00 Intake Total 200 ml Output Total 660 ml Balance -460 ml Result Diagram: 06/25/179 06/25/17 0359 Imaging Last 24 hours Impressions Chest X-Ray 06/20/17 0600 Signed Impressions: Service Date/Time: Tuesday, June 20, 2017 04:35 - CONCLUSION: 1. ET tube tip is directed at the orifice of the right main bronchus and needs to be withdrawn 2.5 cm. 2. The right lung is better aerated than on prior examination , but there is left lower lobe consolidation. 3. Interval development of non-consolidative infiltrate in the right infrahilar region. Brandon Vaughn MD Last Impressions Head CT 06/15/17514 Signed Impressions: Service Date/Time: Thursday, June 15, 2017 05:59 - CONCLUSION: 1. 2.6 cm parenchymal hemorrhage in the posterior right temporal lobe with intraventricular extension. 2. There appears to be a small subarachnoid component over both parietal convexities. 3. Ventricular prominence with periventricular diminished attenuation characteristic of moderately severe small vessel ischemic demyelination. No midline shift Ariel Frederick MD Chest X-Ray 06/15/17514 Signed Impressions: Service Date/Time: Thursday, June 15, 2017 06:15 - CONCLUSION: 1. Minimal left perihilar scarring/fibrosis. Lungs are otherwise clear. 2. Fullness of the upper mediastinum I believe is due to some uncoiling of the thoracic aorta. Trachea remains midline. 3. Borderline prominent but well compensated heart. Ariel Frederick MD Head Magnetic Resonance Angiography 06/15/17 0000 Signed Impressions: Service Date/Time: Thursday, June 15, 2017 11:52 - CONCLUSION: MRA within normal limits. There is a parenchymal hemorrhage in the posterior right temporal lobe with intraventricular extension. Ivan Bahena MD Brain MRI 06/15/17 0000 Signed Impressions: Service Date/Time: Thursday, June 15, 2017 11:52 - CONCLUSION: 1. Large hemorrhage in the right posterior temporal lobe with rupture into the ventricular system and mild ventricular enlargement. Findings most characteristic of a hemorrhagic infarct. On followup exam would recommend contrast to exclude an enhancing underlying lesion. 2. Moderate chronic ischemic changes in periventricular white matter. No significant midline shift. Ivan Bahena MD Objective Remarks General - elderly lady, awake, in no distress HEENT - pupils are equal and reactive, sclerae are anicteric, neck is supple, neck veins are not distended, + EVD, moist mucous membranes CV - regular heart sounds, no murmurs, rubs or gallops Chest - clear bilateral, no wheezes Abdomen - soft, nontender, not distended, BS present Extremities -warm, 1+ edema, + peripheral pulses Neuro - unchanged, awake, alert, follows commands, no facial asymmetry, pupils equal and reactive, EOMI, tongue midline, shrugs shoulders, squeezes fingers on both upper extremities, wiggles toes A/P Problem List: (1) Hemorrhagic stroke ICD Code: I61.9 - Nontraumatic intracerebral hemorrhage, unspecified Status: Acute (2) Hypertensive urgency ICD Code: I16.0 - Hypertensive urgency Status: Acute (3) Encephalopathy, metabolic ICD Code: G93.41 - Metabolic encephalopathy Status: Acute (4) CLAYTON (acute kidney injury) ICD Code: N17.9 - Acute kidney failure, unspecified Status: Acute Assessment and Plan 1. Right temporal intraparenchymal hemorrhage status post EVD placement 2. Hypertensive emergency -resolved 3. Acute respiratory failure due to inability to protect the airway -patient extubated, doing well 4. Staphylococcus and Klebsiella pneumonia -afebrile, WBC trending down 5. Acute encephalopathy -significantly improved since admission 6. Mild hypernatremia -better 7. Hyperlipidemia 1. Continue neuro checks 2. EVD per neurosurgery 3. On metoprolol, keep SBP less than 160 4. Bronchodilators 5. Supplemental O2 to keep SPO2 above 92%. Patient encouraged to use the incentive spirometer 6. On Keppra prophylaxis 7. Antibiotic narrowed to cefazolin day 4 8. On pured diet. Advance per speech therapy 9. No chemical DVT px. until neurosurgery agrees 10. SCDs. 11. GI prophylaxis 12. Box catheter removed Nikolay Mejia MD Jun 25, 2017 10:12
--- NOTE | 2017-06-25 13:21 | HHI.NSPN ---
(Bell Mooney) Note Status Status: Progress Note (Bell Mooney) Interval History Interval History 77 year old female with large hemorrhage stroke with hydrocephalus, worsening mental status, patient became severely obtunded difficult to arouse, she underwent placement of ventriculostomy drain 06/15/1706/16: ventriculostomy draining well, intubated, opening eyes and moving right side spontaneously. 06/18: ventriculostomy draining well, remains intubated, opens eyes, tracks, moves right side, stable left paresis 06/19: ventriculostomy draining well, CSF still bloody, dark red. opens eyes and moves right side spontaneously 06/20: ventriculostomy draining well, still gross bloody CSF, intubated, but opens eyes and gave thumbs up to command 06/25: Awake, ventriculostomy draining, drain raised to 15 cm of water over the weekend with stable ICPs. (Bell Mooney) Labs, Micro, & Vital Signs Results Date Time Temp Pulse Resp B/P (MAP) Pulse Ox O2 Delivery O2 Flow Rate FiO2 06/25/17 12:00 55 06/25/17 12:00 98.4 55 18 116/66 (83) 97 06/25/17 10:00 80 06/25/17 08:00 72 06/25/17 08:00 98.5 72 17 144/70 (94) 95 06/25/17 07:37 96 Nasal Cannula 2.00 06/25/17 07:00 95 Nasal Cannula 2.00 06/25/17 06:00 68 06/25/17 04:00 98.1 69 16 136/64 (88) 95 06/25/17 04:00 69 06/25/17 02:00 66 06/25/17 00:00 98.2 73 20 128/73 (91) 97 06/25/17 00:00 73 06/24/17 22:00 89 06/24/17 20:00 98.2 86 20 139/78 (98) 97 06/24/17 20:00 84 06/24/17 20:00 100 Nasal Cannula 2.00 06/24/17 18:00 86 06/24/17 16:00 98.0 62 16 166/86 (112) 96 06/24/17 16:00 86 06/24/17 14:00 86 06/26/17 07:00 Intake Total 120 ml Balance 120 ml Constitutional Vital Signs Date Time Temp Pulse Resp B/P (MAP) Pulse Ox O2 Delivery O2 Flow Rate FiO2 06/25/17 12:00 55 06/25/17 12:00 98.4 55 18 116/66 (83) 97 06/25/17 10:00 80 06/25/17 08:00 72 06/25/17 08:00 98.5 72 17 144/70 (94) 95 06/25/17 07:37 96 Nasal Cannula 2.00 06/25/17 07:00 95 Nasal Cannula 2.00 06/25/17 06:00 68 06/25/17 04:00 98.1 69 16 136/64 (88) 95 06/25/17 04:00 69 06/25/17 02:00 66 06/25/17 00:00 98.2 73 20 128/73 (91) 97 06/25/17 00:00 73 06/24/17 22:00 89 06/24/17 20:00 98.2 86 20 139/78 (98) 97 06/24/17 20:00 84 06/24/17 20:00 100 Nasal Cannula 2.00 06/24/17 18:00 86 06/24/17 16:00 98.0 62 16 166/86 (112) 96 06/24/17 16:00 86 06/24/17 14:00 86 06/26/17 07:00 Intake Total 120 ml Balance 120 ml (Bell Mooney) Review of Systems Constitutional: DENIES: Fever Cardiovascular: DENIES: Chest pain Gastrointestinal: DENIES: Vomiting Neurologic: COMPLAINS OF: Headache, Localized weakness, DENIES: Seizures, Speech Problems (Bell Mooney) Physical Exam Gen: Resting comfortably in bed in no acute distress HEENT: ventriculostomy drain in place at 15 cm H20, draining dark red CSF well. pupils equal, nonicteric sclera. ET tube in place Neck: soft, supple Musculoskeletal: no obvious deformities. moves right side to command, 3/5 movement left arm to command, minimal to no movement LLE Heart: regular rate rhythm Resp: clear Neuro: awake, follows simple commands.. CN: pupils equal. Cerebellar: cannot assess due to clinical status Skin: warm, dry (Bell Mooney) Gen: Ms Call is comfortably in bed in no acute distress HEENT: ventriculostomy drain in place at 15 cm H20, draining dark red CSF well. pupils equal, nonicteric sclera. ET tube in place Neck: soft, supple Musculoskeletal: no obvious deformities. moves right side to command, 3/5 movement left arm to command, minimal to no movement LLE Heart: regular rate rhythm Resp: clear, mechanically vented Neuro: awake, oriented to name and place, follows simple commands.. CN: pupils equal. Cerebellar: cannot assess due to clinical status Skin: warm, dry (Andre Nixon MD) Medications Current Medications Current Medications Medications (Trade) Dose Ordered Sig/Jose Guadalupe Route PRN Reason Start Time Stop Time Status Last Admin Dose Admin Sodium Chloride (NS Flush) 2 ml UNSCH PRN IV FLUSH FLUSH AFTER USING IV ACCESS 06/15/17 05:15 06/21/17 00:43 Acetaminophen (Tylenol) 650 mg Q6H PRN PO PAIN 1-10 AND/OR FEVER >101F 06/15/17 06:30 06/23/17 20:18 Famotidine (Pepcid Inj) 10 mg Q12HR IV PUSH 06/15/17 09:00 06/25/17 08:45 Ondansetron HCl (Zofran Inj) 4 mg Q6H PRN IV PUSH NAUSEA OR VOMITING 06/15/17 06:30 Albuterol/ Ipratropium (Duoneb Neb) 1 ampule Q4HR NEB PRN INH WHEEZING 06/15/17 06:30 Miscellaneous Information 1 Q361D XX 06/15/17 06:30 06/15/17 06:30 Chlorhexidine Gluconate (Chlorhexidine 2% Cloth) Taper DAILY@04 TOP 06/16/17 04:00 06/12/18 03:59 06/20/17 04:00 Chlorhexidine Gluconate (Chlorhexidine 2% Cloth) 3 pack UNSCH PRN TOP HYGIENIC CARE 06/15/17 06:30 Senna/Docusate Sodium (Fallon-Colace) 1 tab BID PO 06/15/17 09:00 06/25/17 08:45 Magnesium Hydroxide (Milk Of Magnesia Liq) 30 ml Q12H PRN PO Mild constipation 06/15/17 06:30 06/22/17 20:58 Sennosides (Senokot) 17.2 mg Q12H PRN PO Moderate constipation 06/15/17 06:30 Bisacodyl (Dulcolax Supp) 10 mg DAILY PRN RECTAL SEVERE CONSITIPATION 06/15/17 06:30 Lactulose (Lactulose Liq) 30 ml DAILY PRN PO SEVERE CONSITIPATION 06/15/17 06:30 06/22/17 20:58 Chlorhexidine Gluconate (Peridex 0.12% Liq) 15 ml BID@08,20 MT 06/15/17 20:00 06/20/17 19:51 Levetriacetam (Keppra) 500 mg Q12HR PO 06/17/17 11:30 06/25/17 08:45 Pravastatin Sodium (Pravachol) 40 mg HS PO 06/18/17 21:00 06/24/17 20:38 Metoprolol Tartrate (Lopressor) 25 mg Q12HR PO 06/19/17 09:00 06/25/17 08:45 Hydralazine HCl (Apresoline Inj) 10 mg Q4H PRN IV PUSH SBP greater than 160 06/20/17 12:30 06/24/17 07:11 Cefazolin Sodium 2000 mg/Sodium Chloride 120 ml @ 240 mls/hr Q8H IV 06/24/17 23:00 06/25/17 08:44 (Bell Mooney) Current Medications Current Medications Sodium Chloride (NS Flush) 2 ml UNSCH PRN IV FLUSH FLUSH AFTER USING IV ACCESS Last administered on 06/21/17at 00:43; Start 06/15/17 at 05:15 Sodium Chloride 500 ml @ 500 mls/hr BOLUS ONCE IV ; Start 06/15/17 at 06:00; Stop 06/15/17 at 06:59; Status DC Nicardipine HCl 25 mg/Sodium Chloride 250 ml @ 50 mls/hr TITRATE PRN IV Blood pressure management Last administered on 06/19/17at 06:43; Start 06/15/17 at 06: 15; Stop 06/23/17 at 17:33; Status DC Pravastatin Sodium (Pravachol) 80 mg HS PO Last administered on 06/17/17at 23:23 ; Start 06/15/17 at 21:00; Stop 06/18/17 at 09:30; Status DC Levetriacetam 100 ml @ 400 mls/hr BOLUS ONCE IV Last administered on at 09:43; Start 06/15/17 at 06:30; Stop 06/15/17 at 06:44; Status DC Sodium Chloride 1,000 ml @ 100 mls/hr Q10H IV Last administered on 06/17/17at 07:29; Start 06/15/17 at 06:17; Stop 06/17/17 at 12:42; Status DC Acetaminophen (Tylenol) 650 mg Q6H PRN PO PAIN 1-10 AND/OR FEVER >101F Last administered on 06/23/17at 20:18; Start 06/15/17 at 06:30 Morphine Sulfate (Morphine Inj) 2 mg Q2H PRN IV PUSH PAIN SCALE 6 TO 10 Last administered on 06/19/17at 08:29; Start 06/15/17 at 06:30; Stop 06/20/17 at 08:25 ; Status DC Famotidine (Pepcid Inj) 10 mg Q12HR IV PUSH Last administered on 06/25/17at 08: 45; Start 06/15/17 at 09:00; Stop 06/25/17 at 16:28; Status DC Ondansetron HCl (Zofran Inj) 4 mg Q6H PRN IV PUSH NAUSEA OR VOMITING; Start at 06:30 Albuterol/ Ipratropium (Duoneb Neb) 1 ampule Q4HR NEB PRN INH WHEEZING; Start 06/15/17 at 06:30 Miscellaneous Information 1 Q361D XX Last administered on 06/15/17at 06:30; Start 06/15/17 at 06:30 Chlorhexidine Gluconate (Chlorhexidine 2% Cloth) Taper DAILY@04 TOP Last administered on 06/20/17at 04:00; Start 06/16/17 at 04:00; Stop 06/12/18 at 03:59 Chlorhexidine Gluconate (Chlorhexidine 2% Cloth) 3 pack UNSCH PRN TOP HYGIENIC CARE; Start 06/15/17 at 06:30 Senna/Docusate Sodium (Fallon-Colace) 1 tab BID PO Last administered on at 08:45; Start 06/15/17 at 09:00 Magnesium Hydroxide (Milk Of Magnesia Liq) 30 ml Q12H PRN PO Mild constipation Last administered on 06/22/17at 20:58; Start 06/15/17 at 06:30 Sennosides (Senokot) 17.2 mg Q12H PRN PO Moderate constipation; Start 06/15/17 at 06:30 Bisacodyl (Dulcolax Supp) 10 mg DAILY PRN RECTAL SEVERE CONSITIPATION; Start at 06:30 Lactulose (Lactulose Liq) 30 ml DAILY PRN PO SEVERE CONSITIPATION Last administered on 06/22/17at 20:58; Start 06/15/17 at 06:30 Rocuronium Surprise (Zemuron Inj) 100 mg BOLUS ONCE IV Last administered on at 14:34; Start 06/15/17 at 14:00; Stop 06/15/17 at 14:01; Status DC Midazolam HCl (Versed Inj) 5 mg ONCE ONCE IV PUSH Last administered on at 14:35; Start 06/15/17 at 14:00; Stop 06/15/17 at 14:01; Status DC Chlorhexidine Gluconate (Peridex 0.12% Liq) 15 ml BID@08,20 MT Last administered on 06/20/17at 19:51; Start 06/15/17 at 20:00 Propofol 100 ml @ 0 mls/hr TITRATE PRN IV SEDATION; Start 06/15/17 at 14:00; Status UNV Midazolam HCl (Versed Inj) 5 mg STK-MED ONCE .ROUTE ; Start 06/15/17 at 14:07; Stop 06/15/17 at 14:08; Status DC Rocuronium Surprise (Zemuron Inj) 50 mg STK-MED ONCE .ROUTE ; Start 06/15/17 at 14:07; Stop 06/15/17 at 14:08; Status DC Propofol 100 ml @ 1.941 mls/ hr TITRATE PRN IV SEDATION Last administered on at 14:41; Start 06/15/17 at 14:45; Stop 06/21/17 at 14:09; Status DC Miscellaneous Information (RASS Change Order) 1 ea ONCE ONCE XX Last administered on 06/15/17at 14:45; Start 06/15/17 at 14:45; Stop 06/15/17 at 14:46 ; Status DC Norepinephrine Bitartrate 4 mg/ Sodium Chloride 250 ml @ 7.5 mls/hr TITRATE PRN IV Maintain MAP > 70 mmHg; Start 06/15/17 at 19:45; Stop 06/15/17 at 21:37; Status DC Norepinephrine Bitartrate 4 mg/ Sodium Chloride 250 ml @ 7.5 mls/hr TITRATE PRN IV Maintain MAP > 70 mmHg Last administered on 06/15/17at 19:00; Start at 21:45; Stop 06/20/17 at 08:11; Status DC Levetriacetam (Keppra) 500 mg Q12HR PO Last administered on 06/25/17at 08:45; Start 06/17/17 at 11:30 Potassium Chloride 20 meq/ Lactated Ringer's 1,010 ml @ 42 mls/hr Q24H IV ; Start 06/17/17 at 12:45; Stop 06/17/17 at 13:02; Status DC Potassium Chloride 10 meq/ Lactated Ringer's 505 ml @ 42 mls/hr Q12H2M IV Last administered on 06/19/17at 22:32; Start 06/17/17 at 13:15; Stop 06/20/17 at 08:13; Status DC Pravastatin Sodium (Pravachol) 40 mg HS PO Last administered on 06/24/17at 20:38 ; Start 06/18/17 at 21:00 Potassium Phosphate 15 mmol/ Sodium Chloride 155 ml @ 38.75 mls/ hr ONCE ONCE IV Last administered on 06/19/17at 08:50; Start 06/19/17 at 08:00; Stop at 11:59; Status DC Metoprolol Tartrate (Lopressor) 25 mg Q12HR PO Last administered on 06/25/17at 08:45; Start 06/19/17 at 09:00 Pharmacy Profile Note 0 ml @ 0 mls/hr UNSCH OTHER ; Start 06/20/17 at 08:15; Stop 06/21/17 at 14:09; Status DC Albuterol/ Ipratropium (Duoneb Neb) 1 ampule Q6HR NEB NEB Last administered on 06/24/17at 07:16; Start 06/20/17 at 10:00; Stop 06/24/17 at 09:59; Status DC Vancomycin HCl 1250 mg/Sodium Chloride 262.5 ml @ 262.5 mls/ hr ONCE ONCE IV Last administered on 06/20/17at 13:29; Start 06/20/17 at 12:00; Stop 06/20/17 at 12:59; Status DC Hydralazine HCl (Apresoline Inj) 10 mg Q4H PRN IV PUSH SBP greater than 160 Last administered on 06/24/17at 07:11; Start 06/20/17 at 12:30 Potassium Phosphate 15 mmol/ Sodium Chloride 155 ml @ 38.75 mls/ hr ONCE ONCE IV Last administered on 06/20/17at 17:05; Start 06/20/17 at 13:45; Stop at 17:44; Status DC Furosemide (Lasix Inj) 40 mg ONCE ONCE IV PUSH Last administered on 06/21/17at 08:53; Start 06/21/17 at 08:30; Stop 06/21/17 at 08:31; Status DC Cefazolin Sodium/ Dextrose 50 ml @ 100 mls/hr Q8H IV Last administered on 06/24at 15:02; Start 06/21/17 at 15:00; Stop 06/24/17 at 21:47; Status DC Cefazolin Sodium 2000 mg/Sodium Chloride 120 ml @ 240 mls/hr Q8H IV Last administered on 06/25/17at 15:08; Start 06/24/17 at 23:00 Famotidine (Pepcid) 10 mg BID PO ; Start 06/25/17 at 21:00 (Andre Nixon MD) Medical Decision Making MDM Remarks 77 y/o female with large hemorrhagic stroke, she had evidence of hydrocephalus, she underwent placement of ventriculostomy drain 06/15/17 due to worsening mental status, now improving s/p extubation, Challenging ventriculostomy drain (Bell Mooney) Plan Plan Remarks Increase drain level to 20 cm water, continue serial neuro checks and ICP monitoring follow up neuro checks and exam cont critical care management (Bell Mooney) Attending Statement Neuro. Continue neuro checks in a serial fashion. Challenging actiVely ventriculostomy drainage. Pulmonary. Continue aggressive pulmonary toilette, nasotracheal suction, and breathing treatments with nebulizers. Daily PT and OT Renal. Continue to monitor closely urine output, BUN and creatinine Endocrine. Continue to Monitor serial Acu checks and SSI as needed in detail ID continue to monitor for signs of infection Continue Protonix for stress ulcer prophylaxis Continue Nickolas hose and SCD's for DVT prophylaxis Further recommendations will be provided depending on the patient's clinical evaluation and follow up studies. The exam, history, and the medical decision-making described in the above note were completed with the assistance of the mid-level provider. I reviewed and agree with the findings presented. I attest that I had a [id number] encounter with the patient on the same day, and personally performed and documented my assessment and findings in the medical record. (Andre Nixon MD) Bell Mooney Jun 25, 2017 13:21 Andre Nixon MD Jun 25, 2017 19:29
[2017-06-25] MEDS: FAMOTIDINE 20 MG TAB PO SCH (21:13)
[2017-06-25] MEDS: PRAVASTATIN SOD 40 MG TAB PO SCH (21:13)
[2017-06-26] VITALS (14 sets, daily range): BP systolic 127–158; BP diastolic 72–81; PULSE 69–104; RESP 15–22; TEMP 97.2–98.7; O2SAT 94–96
[2017-06-26] MEDS: CHLORHEXIDINE GLUCONATE 2 % 1 PACK (2 CLOTHS) TOP SCH (04:00)
[2017-06-26 06:59] LABS: AUTOMATED NEUTROPHIL # 10.1 TH/MM3 (1.8-7.7); BASOPHIL % 0.3 % (0.0-2.0); EOSINOPHIL % 0.2 % (0.0-4.0); HEMATOCRIT 34.3 % (35.0-46.0); HEMOGLOBIN 11.8 GM/DL (11.6-15.3); LYMPH % 10.9 % (9.0-44.0); LYMPHOCYTE # 1.3 TH/MM3 (1.0-4.8); MEAN CELL VOLUME 87.6 FL (80.0-100.0); MEAN CORPUSCULAR HEMOGLOBIN 30.2 PG (27.0-34.0); MEAN CORPUSCULAR HGB CONC 34.5 % (32.0-36.0); MEAN PLATELET VOLUME 8.7 FL (7.0-11.0); MONO % 7.5 % (0.0-8.0); MONOCYTE # 0.9 TH/MM3 (0-0.9); NEUT % 81.1 % (16.0-70.0); PLATELET COUNT 212 TH/MM3 (150-450); RED BLOOD COUNT 3.91 MIL/MM3 (4.00-5.30); RED CELL DISTRIBUTION WIDTH 13.1 % (11.6-17.2); WHITE BLOOD COUNT 12.4 TH/MM3 (4.0-11.0)
[2017-06-26 07:17] LABS: ALBUMIN 2.1 GM/DL (3.4-5.0); AST (GOT) 65 U/L (15-37); BICARBONATE 24.1 MEQ/L (21.0-32.0); BLOOD UREA NITROGEN 20 MG/DL (7-18); CALCIUM 8.1 MG/DL (8.5-10.1); CHLORIDE 98 MEQ/L (98-107); CREATININE 0.69 MG/DL (0.50-1.00); GLOMERULAR FILTRATION RATE 82 ML/MIN (>89); GLUCOSE,RANDOM 93 MG/DL (74-106); MAGNESIUM 1.9 MG/DL (1.5-2.5); SODIUM (NA) 132 MEQ/L (136-145)
[2017-06-26 07:19] LABS: ALT (GPT) 21 U/L (10-53)
[2017-06-26 07:20] LABS: ALKALINE PHOSPHATASE 123 U/L (45-117); TOTAL BILIRUBIN ADULT 0.9 MG/DL (0.2-1.0); TOTAL PROTEIN 6.1 GM/DL (6.4-8.2)
[2017-06-26] MEDS: CHLORHEXIDINE 0.12% (ORAL KIT) 15 ML CUP MT SCH ×2 (08:00→20:00)
[2017-06-26] MEDS: FAMOTIDINE 20 MG TAB PO SCH ×2 (09:00→21:00)
[2017-06-26] MEDS: METOPROLOL TARTRATE 25 MG TAB PO SCH ×2 (09:00→21:00)
[2017-06-26] MEDS: levETIRAcetam 500 MG TAB PO SCH ×2 (09:00→21:00)
[2017-06-26] MEDS: DOCUSATE SODIUM 50 MG/SENNA 8.6 MG TAB PO SCH ×2 (09:00→21:00)
--- NOTE | 2017-06-26 10:40 | RADRPT ---
EXAM DATE/TIME: 06/26/2017 10:08 [facility] COMPARISON: CT BRAIN W/O CONTRAST, June 23, 2017, 1:30. INDICATIONS : Follow up intracranial hemorrhage, hydrocephalus. RADIATION DOSE: 56.35 CTDIvol (mGy) MEDICAL HISTORY : Cardiovascular disease. Cerebrovascular disease. SURGICAL HISTORY : None. ENCOUNTER: Subsequent ACUITY: 4 - 6 days PAIN SCALE: Non-responsive LOCATION: cranial TECHNIQUE: Multiple contiguous axial images were obtained of the head. Using automated exposure control and adj ustment of the mA and/or kV according to patient size, radiation dose was kept as low as reasonably a chievable to obtain optimal diagnostic quality images. DICOM format image data is available electro nically for review and comparison. FINDINGS: CEREBRUM: There is continued evolution of a right occipital parietal intra-axial hematoma. There is slight incr ease in surrounding edema but no overall significant increase in the amount of mass effect. There is no significant shift of midline structures. The ventricles remain moderately dilated. There is no additional decompression following placeme nt of the ventriculostomy tube. Intraventricular blood remains evident in the occipital horns. POSTERIOR FOSSA: The cerebellum and brainstem are intact. The 4th ventricle is midline. The cerebellopontine angle i s unremarkable. EXTRACRANIAL: The visualized portion of the orbits is intact. SKULL: The calvaria is intact. No evidence of skull fracture. CONCLUSION: 1. Continued evolution of right cerebral hematoma with slightly increasing surrounding edema. 2. No new hemorrhage identified. 3. Continued ventricular dilatation with no further decompression following placement of ventriculost geoffrey. 4. No significant shift of midline structures. Rene Lomeli MD on June 26, 2017 at 10:33 Board Certified Radiologist. This report was verified electronically.
--- NOTE | 2017-06-26 10:43 | HHI.PR ---
Review/Management Diagnosis/Plan: (1) Intracranial hemorrhage ICD Codes: I62.9 - Nontraumatic intracranial hemorrhage, unspecified Status: Acute Plan: rt o-p ich large spontaneous, likely hypertensive mra brain-nml, repeat CT head pending for today recs neuro status declined, CT brain ordered keppra Nsx following, awaiting CT results (2) Encephalopathy, metabolic ICD Codes: G93.41 - Metabolic encephalopathy Status: Acute Plan: due to ich (3) Hypertensive emergency ICD Codes: I16.1 - Hypertensive emergency Status: Acute Plan: improved on bp meds (4) CLAYTON (acute kidney injury) ICD Codes: N17.9 - Acute kidney failure, unspecified Status: Acute Subjective Subjective Comments Pt has been more lethargic, not following commands. She just returned from CT. Active Medications Current Medications Medications (Trade) Dose Ordered Sig/Jose Guadalupe Route Start Time Stop Time Status Last Admin (NS Flush) 2 ml UNSCH PRN IV FLUSH 06/15/17 05:15 06/21/17 00:43 (Tylenol) 650 mg Q6H PRN PO 06/15/17 06:30 06/23/17 20:18 (Zofran Inj) 4 mg Q6H PRN IV PUSH 06/15/17 06:30 (Duoneb Neb) 1 ampule Q4HR NEB PRN INH 06/15/17 06:30 Miscellaneous Information 1 Q361D XX 06/15/17 06:30 06/15/17 06:30 (Chlorhexidine 2% Cloth) Taper DAILY@04 TOP 06/16/17 04:00 06/12/18 03:59 06/20/17 04:00 (Chlorhexidine 2% Cloth) 3 pack UNSCH PRN TOP 06/15/17 06:30 (Fallon-Colace) 1 tab BID PO 06/15/17 09:00 06/25/17 21:13 (Milk Of Magnesia Liq) 30 ml Q12H PRN PO 06/15/17 06:30 06/22/17 20:58 (Senokot) 17.2 mg Q12H PRN PO 06/15/17 06:30 (Dulcolax Supp) 10 mg DAILY PRN RECTAL 06/15/17 06:30 (Lactulose Liq) 30 ml DAILY PRN PO 06/15/17 06:30 06/22/17 20:58 (Peridex 0.12% Liq) 15 ml BID@08,20 MT 06/15/17 20:00 06/20/17 19:51 (Keppra) 500 mg Q12HR PO 06/17/17 11:30 06/25/17 21:13 (Pravachol) 40 mg HS PO 06/18/17 21:00 06/25/17 21:13 (Lopressor) 25 mg Q12HR PO 06/19/17 09:00 06/25/17 21:13 (Apresoline Inj) 10 mg Q4H PRN IV PUSH 06/20/17 12:30 06/24/17 07:11 Cefazolin Sodium 2000 mg/Sodium Chloride 120 ml @ 240 mls/hr Q8H IV 06/24/17 23:00 06/25/17 22:04 (Pepcid) 10 mg BID PO 06/25/17 21:00 06/25/17 21:13 Allergies Allergies Coded Allergies No Known Allergies (Unverified Adverse Reaction, Unknown, 06/15/17) Review of Systems All other ROS: Unable to obtain (not verbal at this time) Exam I&O / VS Vital Signs Date Time Temp Pulse Resp B/P (MAP) Pulse Ox O2 Delivery O2 Flow Rate FiO2 06/26/17 07:45 95 Nasal Cannula 2.00 06/26/17 06:00 96 06/26/17 04:00 98.7 95 15 158/81 (106) 96 06/26/17 04:00 95 06/26/17 02:00 87 06/26/17 00:00 98.5 69 19 144/72 (96) 95 06/26/17 00:00 93 06/25/17 22:00 90 06/25/17 21:57 94 Nasal Cannula 2.00 06/25/17 20:00 98.1 73 15 156/74 (101) 98 06/25/17 20:00 89 06/25/17 19:00 95 Nasal Cannula 2.00 06/25/17 18:00 87 06/25/17 16:00 55 06/25/17 16:00 98.0 60 18 129/66 (87) 97 06/25/17 14:00 80 06/25/17 12:00 55 06/25/17 12:00 98.4 55 18 116/66 (83) 97 Respiratory: Non-labored respirations, Symmetrical expansion Exam Comments Patient just returned from CT. Not following commands, opens her eyes spontaneously at times but resists eye opening by examiner, no gross gaze preference noted, nonverbal except for grunting, does withdraw to noxious stimuli on all 4, no clonus, no pathologic reflexes Objective Micro and Labs Laboratory Tests Test 06/26/17 05:45 06/26/17 05:51 Blood Urea Nitrogen 20 Creatinine 0.69 Random Glucose 93 Total Protein 6.1 Albumin 2.1 Calcium Level 8.1 Phosphorus Level 3.0 Magnesium Level 1.9 Alkaline Phosphatase 123 Aspartate Amino Transf (AST/SGOT) 65 Alanine Aminotransferase (ALT/SGPT) 21 Total Bilirubin 0.9 Sodium Level 132 Potassium Level 4.0 Chloride Level 98 Carbon Dioxide Level 24.1 Anion Gap 10 Estimat Glomerular Filtration Rate 82 White Blood Count 12.4 Red Blood Count 3.91 Hemoglobin 11.8 Hematocrit 34.3 Mean Corpuscular Volume 87.6 Mean Corpuscular Hemoglobin 30.2 Mean Corpuscular Hemoglobin Concent 34.5 Red Cell Distribution Width 13.1 Platelet Count 212 Mean Platelet Volume 8.7 Neutrophils (%) (Auto) 81.1 Lymphocytes (%) (Auto) 10.9 Monocytes (%) (Auto) 7.5 Eosinophils (%) (Auto) 0.2 Basophils (%) (Auto) 0.3 Neutrophils # (Auto) 10.1 Lymphocytes # (Auto) 1.3 Monocytes # (Auto) 0.9 Eosinophils # (Auto) 0.0 Basophils # (Auto) 0.0 CBC Comment DIFF FINAL Differential Comment Date/Time Source Procedure Growth Status 06/15/17 05:26 Blood Peripheral Aerobic Blood Culture - Final NO GROWTH IN 5 DAYS Complete 06/15/17 05:26 Blood Peripheral Anaerobic Blood Culture - Final NO GROWTH IN 5 DAYS Complete 06/15/17 15:15 Cerebral Spinal Fluid Shunt Fluid Gram Stain - Final Complete 06/15/17 15:15 Cerebral Spinal Fluid Shunt Fluid CSF Culture - Final NO GROWTH IN 72 HOURS Complete 06/18/17 05:40 Sputum Endotracheal Gram Stain - Final Complete 06/18/17 05:40 Sputum Culture - Final Staphylococcus Aureus Klebsiella Pneumoniae Complete Mio Elmore Jun 26, 2017 10:43
[2017-06-26] MEDS: CEFAZOLIN INJ 2,000 MG in SODIUM CHLORIDE 0.9% INJ 100 ML IV SCH ×2 (15:00→22:00)
--- NOTE | 2017-06-26 15:09 | HHI.NSPN ---
(Bell Mooney) Note Status Status: Progress Note (Bell Mooney) Interval History Interval History 77 year old female with large hemorrhage stroke with hydrocephalus, worsening mental status, patient became severely obtunded difficult to arouse, she underwent placement of ventriculostomy drain 06/15/1706/16: ventriculostomy draining well, intubated, opening eyes and moving right side spontaneously. 06/18: ventriculostomy draining well, remains intubated, opens eyes, tracks, moves right side, stable left paresis 06/19: ventriculostomy draining well, CSF still bloody, dark red. opens eyes and moves right side spontaneously 06/20: ventriculostomy draining well, still gross bloody CSF, intubated, but opens eyes and gave thumbs up to command 06/25: Awake, ventriculostomy draining, drain raised to 15 cm of water over the weekend with stable ICPs. 06/26: EVD raised to 20 cm H20 yesterday, ICPs remains stable overnight, however appears more lethargic today, minimally opens eyes but falls back asleep. (Bell Mooney) Labs, Micro, & Vital Signs Results Date Time Temp Pulse Resp B/P (MAP) Pulse Ox O2 Delivery O2 Flow Rate FiO2 06/26/17 08:00 97.9 100 16 131/78 (95) 95 06/26/17 07:45 95 Nasal Cannula 2.00 06/26/17 07:00 93 Nasal Cannula 2.00 06/26/17 06:00 96 06/26/17 04:00 98.7 95 15 158/81 (106) 96 06/26/17 04:00 95 06/26/17 02:00 87 06/26/17 00:00 98.5 69 19 144/72 (96) 95 06/26/17 00:00 93 06/25/17 22:00 90 06/25/17 21:57 94 Nasal Cannula 2.00 06/25/17 20:00 98.1 73 15 156/74 (101) 98 06/25/17 20:00 89 06/25/17 19:00 95 Nasal Cannula 2.00 06/25/17 18:00 87 06/25/17 16:00 55 06/25/17 16:00 98.0 60 18 129/66 (87) 97 Constitutional Vital Signs Date Time Temp Pulse Resp B/P (MAP) Pulse Ox O2 Delivery O2 Flow Rate FiO2 06/26/17 08:00 97.9 100 16 131/78 (95) 95 06/26/17 07:45 95 Nasal Cannula 2.00 06/26/17 07:00 93 Nasal Cannula 2.00 06/26/17 06:00 96 06/26/17 04:00 98.7 95 15 158/81 (106) 96 06/26/17 04:00 95 06/26/17 02:00 87 06/26/17 00:00 98.5 69 19 144/72 (96) 95 06/26/17 00:00 93 06/25/17 22:00 90 06/25/17 21:57 94 Nasal Cannula 2.00 06/25/17 20:00 98.1 73 15 156/74 (101) 98 06/25/17 20:00 89 06/25/17 19:00 95 Nasal Cannula 2.00 06/25/17 18:00 87 06/25/17 16:00 55 06/25/17 16:00 98.0 60 18 129/66 (87) 97 (Bell Mooney) Review of Systems ROS Limitations: Clinical Condition (Bell Mooney) Physical Exam Gen: well nourished female appears her age HEENT: ventriculostomy drain in place clamped cm H20, ICPs stable. pupils equal , nonicteric sclera. Neck: soft, supple Musculoskeletal: no obvious deformities. minimal movement throughout, cannot assess detail due to clinical condition Heart: regular rate rhythm Resp: clear Neuro: lethargic, minimally opens eyes then falls back asleep. CN: pupils 3-4 mm equal bilaterally. Cerebellar: cannot assess due to clinical status Skin: warm, dry (Bell Mooney) Gen: well nourished female appears her age HEENT: ventriculostomy drain in place clamped cm H20, ICPs stable. pupils equal , nonicteric sclera. Neck: soft, supple Musculoskeletal: no obvious deformities. minimal movement throughout, cannot assess detail due to clinical condition Heart: regular rate rhythm Resp: clear Neuro: lethargic, minimally opens eyes then falls back asleep. CN: pupils 3-4 mm equal bilaterally. Cerebellar: cannot assess due to clinical status Skin: warm, dry (Andre Nixon MD) Medications Current Medications Current Medications Sodium Chloride (NS Flush) 2 ml UNSCH PRN IV FLUSH FLUSH AFTER USING IV ACCESS Last administered on 06/21/17at 00:43; Start 06/15/17 at 05:15 Sodium Chloride 500 ml @ 500 mls/hr BOLUS ONCE IV ; Start 06/15/17 at 06:00; Stop 06/15/17 at 06:59; Status DC Nicardipine HCl 25 mg/Sodium Chloride 250 ml @ 50 mls/hr TITRATE PRN IV Blood pressure management Last administered on 06/19/17at 06:43; Start 06/15/17 at 06: 15; Stop 06/23/17 at 17:33; Status DC Pravastatin Sodium (Pravachol) 80 mg HS PO Last administered on 06/17/17at 23:23 ; Start 06/15/17 at 21:00; Stop 06/18/17 at 09:30; Status DC Levetriacetam 100 ml @ 400 mls/hr BOLUS ONCE IV Last administered on at 09:43; Start 06/15/17 at 06:30; Stop 06/15/17 at 06:44; Status DC Sodium Chloride 1,000 ml @ 100 mls/hr Q10H IV Last administered on 06/17/17at 07:29; Start 06/15/17 at 06:17; Stop 06/17/17 at 12:42; Status DC Acetaminophen (Tylenol) 650 mg Q6H PRN PO PAIN 1-10 AND/OR FEVER >101F Last administered on 06/23/17at 20:18; Start 06/15/17 at 06:30 Morphine Sulfate (Morphine Inj) 2 mg Q2H PRN IV PUSH PAIN SCALE 6 TO 10 Last administered on 06/19/17at 08:29; Start 06/15/17 at 06:30; Stop 06/20/17 at 08:25 ; Status DC Famotidine (Pepcid Inj) 10 mg Q12HR IV PUSH Last administered on 06/25/17at 08: 45; Start 06/15/17 at 09:00; Stop 06/25/17 at 16:28; Status DC Ondansetron HCl (Zofran Inj) 4 mg Q6H PRN IV PUSH NAUSEA OR VOMITING; Start at 06:30 Albuterol/ Ipratropium (Duoneb Neb) 1 ampule Q4HR NEB PRN INH WHEEZING; Start 06/15/17 at 06:30; Stop 06/27/17 at 09:15; Status DC Miscellaneous Information 1 Q361D XX Last administered on 06/15/17at 06:30; Start 06/15/17 at 06:30 Chlorhexidine Gluconate (Chlorhexidine 2% Cloth) Taper DAILY@04 TOP Last administered on 06/20/17at 04:00; Start 06/16/17 at 04:00; Stop 06/12/18 at 03:59 Chlorhexidine Gluconate (Chlorhexidine 2% Cloth) 3 pack UNSCH PRN TOP HYGIENIC CARE; Start 06/15/17 at 06:30 Senna/Docusate Sodium (Fallon-Colace) 1 tab BID PO Last administered on at 08:00; Start 06/15/17 at 09:00; Stop 06/29/17 at 15:16; Status DC Magnesium Hydroxide (Milk Of Magnesia Liq) 30 ml Q12H PRN PO Mild constipation Last administered on 06/22/17at 20:58; Start 06/15/17 at 06:30 Sennosides (Senokot) 17.2 mg Q12H PRN PO Moderate constipation; Start 06/15/17 at 06:30 Bisacodyl (Dulcolax Supp) 10 mg DAILY PRN RECTAL SEVERE CONSITIPATION; Start at 06:30 Lactulose (Lactulose Liq) 30 ml DAILY PRN PO SEVERE CONSITIPATION Last administered on 06/22/17at 20:58; Start 06/15/17 at 06:30 Rocuronium Erlanger (Zemuron Inj) 100 mg BOLUS ONCE IV Last administered on at 14:34; Start 06/15/17 at 14:00; Stop 06/15/17 at 14:01; Status DC Midazolam HCl (Versed Inj) 5 mg ONCE ONCE IV PUSH Last administered on at 14:35; Start 06/15/17 at 14:00; Stop 06/15/17 at 14:01; Status DC Chlorhexidine Gluconate (Peridex 0.12% Liq) 15 ml BID@08,20 MT Last administered on 06/29/17at 07:42; Start 06/15/17 at 20:00 Propofol 100 ml @ 0 mls/hr TITRATE PRN IV SEDATION; Start 06/15/17 at 14:00; Status UNV Midazolam HCl (Versed Inj) 5 mg STK-MED ONCE .ROUTE ; Start 06/15/17 at 14:07; Stop 06/15/17 at 14:08; Status DC Rocuronium Erlanger (Zemuron Inj) 50 mg STK-MED ONCE .ROUTE ; Start 06/15/17 at 14:07; Stop 06/15/17 at 14:08; Status DC Propofol 100 ml @ 1.941 mls/ hr TITRATE PRN IV SEDATION Last administered on at 14:41; Start 06/15/17 at 14:45; Stop 06/21/17 at 14:09; Status DC Miscellaneous Information (RASS Change Order) 1 ea ONCE ONCE XX Last administered on 06/15/17at 14:45; Start 06/15/17 at 14:45; Stop 06/15/17 at 14:46 ; Status DC Norepinephrine Bitartrate 4 mg/ Sodium Chloride 250 ml @ 7.5 mls/hr TITRATE PRN IV Maintain MAP > 70 mmHg; Start 06/15/17 at 19:45; Stop 06/15/17 at 21:37; Status DC Norepinephrine Bitartrate 4 mg/ Sodium Chloride 250 ml @ 7.5 mls/hr TITRATE PRN IV Maintain MAP > 70 mmHg Last administered on 06/15/17at 19:00; Start at 21:45; Stop 06/20/17 at 08:11; Status DC Levetriacetam (Keppra) 500 mg Q12HR PO Last administered on 06/29/17at 08:00; Start 06/17/17 at 11:30 Potassium Chloride 20 meq/ Lactated Ringer's 1,010 ml @ 42 mls/hr Q24H IV ; Start 06/17/17 at 12:45; Stop 06/17/17 at 13:02; Status DC Potassium Chloride 10 meq/ Lactated Ringer's 505 ml @ 42 mls/hr Q12H2M IV Last administered on 06/19/17at 22:32; Start 06/17/17 at 13:15; Stop 06/20/17 at 08:13; Status DC Pravastatin Sodium (Pravachol) 40 mg HS PO Last administered on 06/28/17at 22:57 ; Start 06/18/17 at 21:00 Potassium Phosphate 15 mmol/ Sodium Chloride 155 ml @ 38.75 mls/ hr ONCE ONCE IV Last administered on 06/19/17at 08:50; Start 06/19/17 at 08:00; Stop at 11:59; Status DC Metoprolol Tartrate (Lopressor) 25 mg Q12HR PO Last administered on 06/29/17at 08:00; Start 06/19/17 at 09:00 Pharmacy Profile Note 0 ml @ 0 mls/hr UNSCH OTHER ; Start 06/20/17 at 08:15; Stop 06/21/17 at 14:09; Status DC Albuterol/ Ipratropium (Duoneb Neb) 1 ampule Q6HR NEB NEB Last administered on 06/24/17at 07:16; Start 06/20/17 at 10:00; Stop 06/24/17 at 09:59; Status DC Vancomycin HCl 1250 mg/Sodium Chloride 262.5 ml @ 262.5 mls/ hr ONCE ONCE IV Last administered on 06/20/17at 13:29; Start 06/20/17 at 12:00; Stop 06/20/17 at 12:59; Status DC Hydralazine HCl (Apresoline Inj) 10 mg Q4H PRN IV PUSH SBP greater than 160 Last administered on 06/24/17at 07:11; Start 06/20/17 at 12:30 Potassium Phosphate 15 mmol/ Sodium Chloride 155 ml @ 38.75 mls/ hr ONCE ONCE IV Last administered on 06/20/17at 17:05; Start 06/20/17 at 13:45; Stop at 17:44; Status DC Furosemide (Lasix Inj) 40 mg ONCE ONCE IV PUSH Last administered on 06/21/17at 08:53; Start 06/21/17 at 08:30; Stop 06/21/17 at 08:31; Status DC Cefazolin Sodium/ Dextrose 50 ml @ 100 mls/hr Q8H IV Last administered on 06/24at 15:02; Start 06/21/17 at 15:00; Stop 06/24/17 at 21:47; Status DC Cefazolin Sodium 2000 mg/Sodium Chloride 120 ml @ 240 mls/hr Q8H IV Last administered on 06/29/17at 16:44; Start 06/24/17 at 23:00 Famotidine (Pepcid) 10 mg BID PO Last administered on 06/29/17at 08:00; Start at 21:00 Chlorhexidine Gluconate (Hibiclens 4% Top Soln) 1 applic HS TOP Last administered on 06/27/17at 05:56; Start 06/26/17 at 21:00; Stop 06/28/17 at 21:01 ; Status DC Acetaminophen 100 ml @ As Directed STK-MED ONCE IV ; Start 06/27/17 at 07:04; Stop 06/27/17 at 07:05; Status DC Artificial Tears (Lacrilube Opht Oint) 3.5 applic STK-MED ONCE .ROUTE ; Start at 07:05; Stop 06/27/17 at 07:06; Status DC Lidocaine/ Epinephrine (Xylocaine-Epi 1%-1:100,000 Inj) 30 ml STK-MED ONCE .ROUTE ; Start 06/27/17 at 07:32; Stop 06/27/17 at 07:33; Status DC Thrombin (Thrombin Top Soln) 10,000 units STK-MED ONCE .ROUTE ; Start 06/27/17 at 07:32; Stop 06/27/17 at 07:33; Status DC Gelatin (Gelfoam 100 Top) 1 foam STK-MED ONCE .ROUTE ; Start 06/27/17 at 07:32; Stop 06/27/17 at 07:33; Status DC Bacitracin (Baciguent Oint) 15 applic STK-MED ONCE .ROUTE ; Start 06/27/17 at 07 :32; Stop 06/27/17 at 07:33; Status DC Gentamicin Sulfate (Gentamicin Inj) 240 mg STK-MED ONCE .ROUTE ; Start 06/27/17 at 07:33; Stop 06/27/17 at 07:34; Status DC Albuterol Sulfate (Albuterol Neb) 2.5 mg Q2HR NEB PRN NEB dyspnea; Start at 09:15 Labetalol HCl (Trandate Inj) 10 mg Q1HR PRN IV PUSH SBP>160, DBP>90, HR>65; Start 06/27/17 at 09:15 Polyethylene Glycol (Miralax) 17 gm ONCE ONCE PO ; Start 06/27/17 at 09:15; Stop 06/27/17 at 09:19; Status DC Polyethylene Glycol (Miralax) 17 gm DAILY PO Last administered on 06/28/17at 08: 31; Start 06/28/17 at 09:00; Stop 06/28/17 at 15:18; Status DC Glycerin (Glycerin Adult Supp) 2 gm ONCE ONCE RECTAL ; Start 06/27/17 at 09:15 ; Stop 06/27/17 at 09:20; Status DC Sodium Chloride (Sodium Chloride) 1 gm ONCE ONCE PO ; Start 06/27/17 at 09:45; Stop 06/27/17 at 10:35; Status DC Propofol (Diprivan 500 Mg/ 50 ml Inj) 100 mg ONCE ONCE IV Last administered on 06/27/17at 11:10; Start 06/27/17 at 11:00; Stop 06/27/17 at 11:01; Status DC Chlorhexidine Gluconate (Peridex 0.12% Liq) 15 ml BID@08,20 MT ; Start 06/27/17 at 20:00; Status Cancel Propofol 100 ml @ 2.073 mls/ hr TITRATE PRN IV SEDATION Last administered on at 13:58; Start 06/27/17 at 11:00 Fentanyl Citrate 250 ml @ 5 mls/hr TITRATE PRN IV SEDATION; Start 06/27/17 at 11:00 Lidocaine HCl (Xylocaine 2% Inj) 100 mg ONCE ONCE IV PUSH Last administered on 06/27/17at 13:34; Start 06/27/17 at 11:00; Stop 06/27/17 at 11:01; Status DC Etomidate (Amidate Inj) 40 mg ONCE ONCE IV PUSH Last administered on at 13:34; Start 06/27/17 at 11:00; Stop 06/27/17 at 11:01; Status DC Rocuronium Erlanger (Zemuron Inj) 100 mg BOLUS ONCE IV Last administered on at 13:35; Start 06/27/17 at 11:30; Stop 06/27/17 at 11:31; Status DC Lidocaine/ Epinephrine (Xylocaine-Epi 1%-1:100,000 Inj) 30 ml STK-MED ONCE .ROUTE ; Start 06/27/17 at 10:50; Stop 06/27/17 at 10:51; Status DC Rocuronium Erlanger (Zemuron Inj) 100 mg STK-MED ONCE .ROUTE ; Start 06/27/17 at 10:51; Stop 06/27/17 at 10:52; Status DC Artificial Tears (Tears Naturale Opth Soln) 1 drop Q8HR EACH EYE Last administered on 06/29/17at 14:00; Start 06/28/17 at 17:00 Polyethylene Glycol (Miralax) 17 gm BID PO Last administered on 06/29/17at 08:00 ; Start 06/28/17 at 21:00 Lactulose (Lactulose Liq) 30 ml QID PO Last administered on 06/29/17at 16:44; Start 06/28/17 at 18:00 Mineral Oil (Kondremul Liq) 30 ml ONCE ONCE PO Last administered on 06/28/17at 16:54; Start 06/28/17 at 17:00; Stop 06/28/17 at 17:01; Status DC Glycerin (Glycerin Adult Supp) 2 gm ONCE ONCE RECTAL Last administered on 06/28at 16:54; Start 06/28/17 at 17:00; Stop 06/28/17 at 17:01; Status DC Methylnaltrexone Erlanger (Relistor Inj) 12 mg ONCE ONCE SQ Last administered on 06/28/17at 17:20; Start 06/28/17 at 17:00; Stop 06/28/17 at 17:01; Status DC Metoclopramide HCl (Reglan Inj) 5 mg Q8HR IV PUSH ; Start 06/29/17 at 22:00 Methylnaltrexone Erlanger (Relistor Inj) 12 mg ONCE ONCE SQ Last administered on 06/29/17at 17:14; Start 06/29/17 at 15:15; Stop 06/29/17 at 15:30; Status DC Docusate Sodium (Colace Liq) 100 mg Q12HR PO ; Start 06/29/17 at 21:00 Sennosides (Senna Liq) 8.8 mg BID PO ; Start 06/29/17 at 21:00 Mineral Oil (Kondremul Liq) 30 ml ONCE ONCE PO Last administered on 06/29/17at 15:15; Start 06/29/17 at 15:15; Stop 06/29/17 at 15:30; Status DC Glycerin (Glycerin Adult Supp) 2 gm ONCE ONCE RECTAL Last administered on 06/29at 15:15; Start 06/29/17 at 15:15; Stop 06/29/17 at 15:30; Status DC (Andre Nixon MD) Medical Decision Making MDM Remarks 77 y/o female with large hemorrhagic stroke, she had evidence of hydrocephalus, she underwent placement of ventriculostomy drain 06/15/17 due to worsening mental status with improvement of mental status Challenging ventriculostomy drain, patient appearing more lethargic not tolerating raising level of ventriculostomy drain. (Bell Mooney) Plan Plan Remarks per Dr. Nixon, will clamp EVD, f/u CT Brain obtained shows ventriculomegaly, stable ICH's monitor ICPs, reopen if sustaining over 20 for OUTSOLE TACKER shunt tomorrow morning, discussed with son on phone (Bell Mooney) Attending Statement Neuro. Continue neuro checks in a serial fashion. Failed challenging ventriculostomy drainage. Increasing ICP's and leaking CSF around catheter site May need a OUTSOLE TACKER shunt. We have discussed with her son the details including the [id number] details of the surgical procedure, its indications, alternatives, risks, and potential complications. Risks and potential complications include, but are not limited to, infection, blood loss, CSF leak, partial or complete loss of sight in one or both eyes, paresis, paralysis, permanent pain or difficulty swallowing, loss of bowel or bladder function, complications from anesthesia, blood clot, stroke, myocardial infarction, or even . Pulmonary. aggressive pulmonary toilette, nasotracheal suction, and breathing treatments with nebulizers. Daily PT and OT Renal. Continue to monitor closely urine output, BUN and creatinine Endocrine. Continue to Monitor serial Acu checks and SSI as needed in detail ID continue to monitor for signs of infection Continue Protonix for stress ulcer prophylaxis Continue Nickolas hose and SCD's for DVT prophylaxis Further recommendations will be provided depending on the patient's clinical evaluation and follow up studies. The exam, history, and the medical decision-making described in the above note were completed with the assistance of the mid-level provider. I reviewed and agree with the findings presented. I attest that I had a [id number] encounter with the patient on the same day, and personally performed and documented my assessment and findings in the medical record. (Andre Nixon MD) Bell Mooney Jun 26, 2017 15:09 Andre Nixon MD Jun 27, 2017 10:56
--- NOTE | 2017-06-26 15:28 | HHI.CCPN ---
Subjective Remarks/Hospital Course Admission Diagnosis Parenchymal Brain Hemorrhage Diagnosis: (1) Hemorrhagic stroke Diagnosis: Principal (2) Respiratory failure (3) Hypertensive urgency Diagnosis: Principal (4) Encephalopathy, metabolic Diagnosis: Principal (5) CLAYTON (acute kidney injury) Diagnosis: Secondary Severely dehydrated, elderly woman presents confused to [facility] with hypertensive urgency and semi-acute right hemispheric parenchymal brain hemorrhage. Arrived from [facility] on cardene gtt and aphasic. Handness not determined yet. Unable to get ROS. No anticoagulants. INR normal. 06/16: Flaccid left side. Minimal eye opening. Moves right arm and leg to stimulation. Breathes over vent. ICP control, EVD draining well. 06/17: Moving both arms, right much stronger. More alert but episodic apnea spells. 06/18: No events over the night. Patient remains intubated, off sedation. She is currently on pressure support, 01/04, doing well. Awake, following commands. Son present at bedside. T-max of 99.6. I/O 250/1545. 06/19: No events over the night. Patient did well yesterday on pressure support , but was not able to be extubated secondary to no cuff leak. She remains on Cardene currently at 9.5 mg/h. Afebrile with a T-max of 99.4. Negative fluid balance. 06/20: Patient did well over the night. T-max of 100.2. ICP of 4. Thick sputum secretions sent yesterday for culture now growing Staphylococcus. Patient is awake, off sedation following some commands. Off Cardene drip since yesterday. 06/21: Patient did well postextubation and over the night. T-max of 100 yesterday morning. Very good urine output. Patient awake following commands, denying any pain. 06/22: No events over the night. Patient doing well. She is awake and alert, denies headache, nausea, vomiting. No chest pain, no dyspnea, no palpitations. On 2 L nasal cannula. Afebrile over the last 24 hours. Diuresed well post Lasix and she is on negative fluid balance since admission. 06/23: Patient awake, feels better, denies chest pain, shortness of breath, palpitations, headache. Still has productive cough. Afebrile, urine output is adequate. 06/24: No events over the night. Patient afebrile over the last 24 hours. She remains awake, resting in bed, denies any complaints. Sons at bedside. 06/25: Resting comfortably. Drowsy, arousable. EVD at 15cm, drained 60 cc overnight. 06/26: Resting comfortably. Awake and alert. EVD in place drain 10 cc overnight however has some clear fluid draining around ventriculostomy site. Dr. Nixon planning [employer] shunt for tomorrow. Objective Vital Signs Date Time Temp Pulse Resp B/P (MAP) Pulse Ox O2 Delivery O2 Flow Rate FiO2 06/26/17 08:00 97.9 100 16 131/78 (95) 95 06/26/17 07:45 Nasal Cannula 2.00 Intake and Output 06/26/17 06/26/17 06/27/17 08:00 16:00 00:00 Intake Total 100 ml Output Total 510 ml Balance -410 ml Result Diagram: 06/26/17 0551 06/26/17 0545 Imaging Last 24 hours Impressions Chest X-Ray 06/20/17 06 Signed Impressions: Service Date/Time: Tuesday, June 20, 2017 04:35 - CONCLUSION: 1. ET tube tip is directed at the orifice of the right main bronchus and needs to be withdrawn 2.5 cm. 2. The right lung is better aerated than on prior examination , but there is left lower lobe consolidation. 3. Interval development of non-consolidative infiltrate in the right infrahilar region. Brandon Vaughn MD Last Impressions Head CT 06/15/17514 Signed Impressions: Service Date/Time: Thursday, June 15, 2017 05:59 - CONCLUSION: 1. 2.6 cm parenchymal hemorrhage in the posterior right temporal lobe with intraventricular extension. 2. There appears to be a small subarachnoid component over both parietal convexities. 3. Ventricular prominence with periventricular diminished attenuation characteristic of moderately severe small vessel ischemic demyelination. No midline shift Ariel Frederick MD Chest X-Ray 06/15/1715 Signed Impressions: Service Date/Time: Thursday, June 15, 2017 06:15 - CONCLUSION: 1. Minimal left perihilar scarring/fibrosis. Lungs are otherwise clear. 2. Fullness of the upper mediastinum I believe is due to some uncoiling of the thoracic aorta. Trachea remains midline. 3. Borderline prominent but well compensated heart. Ariel Frederick MD Head Magnetic Resonance Angiography 06/15/17 0000 Signed Impressions: Service Date/Time: Thursday, June 15, 2017 11:52 - CONCLUSION: MRA within normal limits. There is a parenchymal hemorrhage in the posterior right temporal lobe with intraventricular extension. Ivan Bahena MD Brain MRI 06/15/17 0000 Signed Impressions: Service Date/Time: Thursday, June 15, 2017 11:52 - CONCLUSION: 1. Large hemorrhage in the right posterior temporal lobe with rupture into the ventricular system and mild ventricular enlargement. Findings most characteristic of a hemorrhagic infarct. On followup exam would recommend contrast to exclude an enhancing underlying lesion. 2. Moderate chronic ischemic changes in periventricular white matter. No significant midline shift. Ivan Bahena MD Objective Remarks General - elderly lady, awake, in no distress HEENT - pupils are equal and reactive, sclerae are anicteric, neck is supple, neck veins are not distended, + EVD, moist mucous membranes CV - regular heart sounds, no murmurs, rubs or gallops Chest - clear bilateral, no wheezes Abdomen - soft, nontender, not distended, BS present Extremities -warm, 1+ edema, + peripheral pulses Neuro - unchanged, awake, alert, follows commands, no facial asymmetry, pupils equal and reactive, EOMI, tongue midline, shrugs shoulders, squeezes fingers on both upper extremities, wiggles toes A/P Problem List: (1) Hemorrhagic stroke ICD Code: I61.9 - Nontraumatic intracerebral hemorrhage, unspecified Status: Acute (2) Hypertensive urgency ICD Code: I16.0 - Hypertensive urgency Status: Acute (3) Encephalopathy, metabolic ICD Code: G93.41 - Metabolic encephalopathy Status: Acute (4) CLAYTON (acute kidney injury) ICD Code: N17.9 - Acute kidney failure, unspecified Status: Acute Assessment and Plan 1. Right temporal intraparenchymal hemorrhage status post EVD placement 2. Hypertensive emergency -resolved 3. Acute respiratory failure due to inability to protect the airway -patient extubated, doing well 4. Staphylococcus and Klebsiella pneumonia -afebrile, WBC trending down 5. Acute encephalopathy -significantly improved since admission 6. Mild hypernatremia -better 7. Hyperlipidemia 1. Continue neuro checks 2. EVD per neurosurgery. [employer] shunt planned by Dr. Nixon for 06/27 3. On metoprolol, keep SBP less than 160 4. Bronchodilators 5. Supplemental O2 to keep SPO2 above 92%. Patient encouraged to use the incentive spirometer 6. On Keppra prophylaxis 7. Antibiotic narrowed to cefazolin day 07/07 8. On pured diet. Advance per speech therapy 9. No chemical DVT px. until neurosurgery agrees 10. SCDs. 11. GI prophylaxis 12. Box catheter removed Nikolay Mejia MD Jun 26, 2017 15:28
[2017-06-26] MEDS: PRAVASTATIN SOD 40 MG TAB PO SCH (21:00)
[2017-06-27] VITALS (17 sets, daily range): BP systolic 107–175; BP diastolic 64–93; PULSE 71–114; RESP 14–24; TEMP 97.4–98.7; O2SAT 92–100
[2017-06-27] MEDS: CHLORHEXIDINE GLUCONATE 2 % 1 PACK (2 CLOTHS) TOP SCH (04:00)
[2017-06-27] MEDS: CHLORHEXIDINE GLUCONATE 4% SOLN 120 ML BTL TOP SCH ×2 (05:56→21:00)
[2017-06-27] MEDS: CEFAZOLIN INJ 2,000 MG in SODIUM CHLORIDE 0.9% INJ 100 ML IV SCH ×2 (06:13→17:36)
[2017-06-27] MEDS ORDERED: ACETAMINOPHEN 1000 MG/100 ML 100 ML IV ONE (07:04)
[2017-06-27] MEDS ORDERED: ARTIFICIAL TEARS OPTH OINT 3.5 APPLIC/3.5 GM TUBO ONE (07:05)
[2017-06-27] MEDS ORDERED: THROMBIN (TOPICAL) 5,000 UNIT VIAL ONE (07:32)
[2017-06-27] MEDS ORDERED: BACITRACIN TOP OINT 15 GM TUBE ONE (07:32)
[2017-06-27] MEDS ORDERED: GELFOAM SIZE 100 ONE (07:32)
[2017-06-27] MEDS ORDERED: LIDOCAINE 1%/EPINEPHrine 1:100,000 SOLN 30 ML VIAL ONE ×2 (07:32→10:50)
[2017-06-27] MEDS ORDERED: GENTAMICIN SULFATE 80 MG/2 ML VIAL ONE (07:33)
[2017-06-27] MEDS: CHLORHEXIDINE 0.12% (ORAL KIT) 15 ML CUP MT SCH ×2 (08:00→21:29)
--- NOTE | 2017-06-27 08:11 | HHI.PR ---
Review/Management Diagnosis/Plan: (1) Intracranial hemorrhage ICD Codes: I62.9 - Nontraumatic intracranial hemorrhage, unspecified Status: Acute Plan: rt o-p ich large spontaneous, likely hypertensive mra brain-nml, wernicke type aphasia: r/o left mca infarct vs rt hemispheric complex partial sz recs mri brain; r/o left mca infarct eeg needs more suctioning/ ? bronch d/w nsx (2) Encephalopathy, metabolic ICD Codes: G93.41 - Metabolic encephalopathy Status: Acute Plan: due to ich (3) Hypertensive emergency ICD Codes: I16.1 - Hypertensive emergency Status: Acute Plan: improved on bp meds (4) CLAYTON (acute kidney injury) ICD Codes: N17.9 - Acute kidney failure, unspecified Status: Acute Subjective Subjective Comments No acute events reported Active Medications Current Medications Medications (Trade) Dose Ordered Sig/Jose Guadalupe Route Start Time Stop Time Status Last Admin (NS Flush) 2 ml UNSCH PRN IV FLUSH 06/15/17 05:15 06/21/17 00:43 (Tylenol) 650 mg Q6H PRN PO 06/15/17 06:30 06/23/17 20:18 (Zofran Inj) 4 mg Q6H PRN IV PUSH 06/15/17 06:30 (Duoneb Neb) 1 ampule Q4HR NEB PRN INH 06/15/17 06:30 Miscellaneous Information 1 Q361D XX 06/15/17 06:30 06/15/17 06:30 (Chlorhexidine 2% Cloth) Taper DAILY@04 TOP 06/16/17 04:00 06/12/18 03:59 06/20/17 04:00 (Chlorhexidine 2% Cloth) 3 pack UNSCH PRN TOP 06/15/17 06:30 (Fallon-Colace) 1 tab BID PO 06/15/17 09:00 06/25/17 21:13 (Milk Of Magnesia Liq) 30 ml Q12H PRN PO 06/15/17 06:30 06/22/17 20:58 (Senokot) 17.2 mg Q12H PRN PO 06/15/17 06:30 (Dulcolax Supp) 10 mg DAILY PRN RECTAL 06/15/17 06:30 (Lactulose Liq) 30 ml DAILY PRN PO 06/15/17 06:30 06/22/17 20:58 (Peridex 0.12% Liq) 15 ml BID@08,20 MT 06/15/17 20:00 06/26/17 08:00 (Keppra) 500 mg Q12HR PO 06/17/17 11:30 06/25/17 21:13 (Pravachol) 40 mg HS PO 06/18/17 21:00 06/25/17 21:13 (Lopressor) 25 mg Q12HR PO 06/19/17 09:00 06/25/17 21:13 (Apresoline Inj) 10 mg Q4H PRN IV PUSH 06/20/17 12:30 06/24/17 07:11 Cefazolin Sodium 2000 mg/Sodium Chloride 120 ml @ 240 mls/hr Q8H IV 06/24/17 23:00 06/27/17 06:13 (Pepcid) 10 mg BID PO 06/25/17 21:00 06/25/17 21:13 (Hibiclens 4% Top Soln) 1 applic HS TOP 06/26/17 21:00 06/28/17 21:01 06/27/17 05:56 Allergies Allergies Coded Allergies No Known Allergies (Unverified Adverse Reaction, Unknown, 06/15/17) Review of Systems All other ROS: Unable to obtain (not verbal at this time) Exam I&O / VS Vital Signs Date Time Temp Pulse Resp B/P (MAP) Pulse Ox O2 Delivery O2 Flow Rate FiO2 06/27/17 06:00 102 06/27/17 04:00 100 06/27/17 04:00 98.3 102 21 140/70 (93) 93 06/27/17 02:00 71 06/27/17 00:00 98.2 99 18 133/78 (96) 94 06/27/17 00:00 100 06/26/17 22:00 104 06/26/17 20:00 86 06/26/17 20:00 98.0 86 17 145/75 (98) 94 06/26/17 19:40 94 21 06/26/17 19:00 93 Nasal Cannula 2.00 40 06/26/17 18:00 92 06/26/17 16:00 97.2 92 21 129/77 (94) 94 06/26/17 16:00 94 06/26/17 14:00 92 06/26/17 12:00 98 06/26/17 12:00 97.2 98 21 127/81 (96) 96 06/26/17 10:00 96 Respiratory: Non-labored respirations, Symmetrical expansion Exam Comments alert, comprehensive aphasia, articulates, left gaze preference, ou 3-2.5mm , left hh, mild left le paresis 3-4/5, less spontaneous rt ue movement Objective Micro and Labs Date/Time Source Procedure Growth Status 06/15/17 05:26 Blood Peripheral Aerobic Blood Culture - Final NO GROWTH IN 5 DAYS Complete 06/15/17 05:26 Blood Peripheral Anaerobic Blood Culture - Final NO GROWTH IN 5 DAYS Complete 06/15/17 15:15 Cerebral Spinal Fluid Shunt Fluid Gram Stain - Final Complete 06/15/17 15:15 Cerebral Spinal Fluid Shunt Fluid CSF Culture - Final NO GROWTH IN 72 HOURS Complete 06/18/17 05:40 Sputum Endotracheal Gram Stain - Final Complete 06/18/17 05:40 Sputum Culture - Final Staphylococcus Aureus Klebsiella Pneumoniae Complete Jose Cruz Crowell MD Jun 27, 2017 08:11
[2017-06-27] MEDS: DOCUSATE SODIUM 50 MG/SENNA 8.6 MG TAB PO SCH ×2 (09:00→21:35)
[2017-06-27] MEDS: levETIRAcetam 500 MG TAB PO SCH ×2 (09:00→21:34)
[2017-06-27] MEDS: METOPROLOL TARTRATE 25 MG TAB PO SCH ×2 (09:00→21:35)
[2017-06-27] MEDS: FAMOTIDINE 20 MG TAB PO SCH ×2 (09:00→21:35)
[2017-06-27] MEDS ORDERED: POLYETHYLENE GLYCOL 17 GM PKG PO ONE (09:15)
[2017-06-27] MEDS ORDERED: RESP: ALBUTEROL 2.5 MG/3 ML NEB (PRN) NEB (09:15)
[2017-06-27] MEDS ORDERED: GLYCERIN ADULT 2 GM SUPP RECTAL ONE (09:15)
--- NOTE | 2017-06-27 09:21 | HHI.CCPN ---
Subjective Remarks/Hospital Course Severely dehydrated, elderly woman presents confused to [facility] ED with hypertensive urgency and semi-acute right hemispheric parenchymal brain hemorrhage. Arrived from [facility] on cardene gtt and aphasic. Handness not determined yet. Unable to get ROS. No anticoagulants. INR normal. 06/16: Flaccid left side. Minimal eye opening. Moves right arm and leg to stimulation. Breathes over vent. ICP control, EVD draining well. 06/17: Moving both arms, right much stronger. More alert but episodic apnea spells. 06/18: No events over the night. Patient remains intubated, off sedation. She is currently on pressure support, 01/04, doing well. Awake, following commands. Son present at bedside. T-max of 99.6. I/O 250/1545. 06/19: No events over the night. Patient did well yesterday on pressure support , but was not able to be extubated secondary to no cuff leak. She remains on Cardene currently at 9.5 mg/h. Afebrile with a T-max of 99.4. Negative fluid balance. 06/20: Patient did well over the night. T-max of 100.2. ICP of 4. Thick sputum secretions sent yesterday for culture now growing Staphylococcus. Patient is awake, off sedation following some commands. Off Cardene drip since yesterday. 06/21: Patient did well postextubation and over the night. T-max of 100 yesterday morning. Very good urine output. Patient awake following commands, denying any pain. 06/22: No events over the night. Patient doing well. She is awake and alert, denies headache, nausea, vomiting. No chest pain, no dyspnea, no palpitations. On 2 L nasal cannula. Afebrile over the last 24 hours. Diuresed well post Lasix and she is on negative fluid balance since admission. 06/23: Patient awake, feels better, denies chest pain, shortness of breath, palpitations, headache. Still has productive cough. Afebrile, urine output is adequate. 06/24: No events over the night. Patient afebrile over the last 24 hours. She remains awake, resting in bed, denies any complaints. Sons at bedside. 06/25: Resting comfortably. Drowsy, arousable. EVD at 15cm, drained 60 cc overnight. 06/26: Resting comfortably. Awake and alert. EVD in place drain 10 cc overnight however has some clear fluid draining around ventriculostomy site. Dr. Nixon planning [employer] shunt for tomorrow. Subjective 06/27: Afebrile. Less arousable today. Eyes are closed. Subjective left-sided weakness. EVD in place at 20 cm. 4 cc overnight. On cefazolin with clear fluid draining from ventriculostomy site. CT brain currently pending. Objective Vital Signs Date Time Temp Pulse Resp B/P (MAP) Pulse Ox O2 Delivery O2 Flow Rate FiO2 06/27/17 08:00 106 06/27/17 08:00 97.4 24 136/73 (94) 92 06/26/17 19:40 21 06/26/17 19:00 Nasal Cannula 2.00 Intake and Output 06/27/17 06/27/17 06/28/17 08:00 16:00 00:00 Intake Total 80 ml Output Total 450 ml Balance -370 ml Result Diagram: 06/26/17 0551 06/26/17 0545 Other Results Microbiology Date/Time Source Procedure Growth Status 06/15/17 05:26 Blood Peripheral Aerobic Blood Culture - Final NO GROWTH IN 5 DAYS Complete 06/15/17 05:26 Blood Peripheral Anaerobic Blood Culture - Final NO GROWTH IN 5 DAYS Complete 06/15/17 15:15 Cerebral Spinal Fluid Shunt Fluid Gram Stain - Final Complete 06/15/17 15:15 Cerebral Spinal Fluid Shunt Fluid CSF Culture - Final NO GROWTH IN 72 HOURS Complete 06/18/17 05:40 Sputum Endotracheal Gram Stain - Final Complete 06/18/17 05:40 Sputum Culture - Final Staphylococcus Aureus Klebsiella Pneumoniae Complete Imaging Last Impressions Head CT 06/26/17 0000 Signed Impressions: Service Date/Time: Monday, June 26, 2017 10:08 - CONCLUSION: 1. Continued evolution of right cerebral hematoma with slightly increasing surrounding edema. 2. No new hemorrhage identified. 3. Continued ventricular dilatation with no further decompression following placement of ventriculostomy. 4. No significant shift of midline structures. Rene Lomeli MD Chest X-Ray 06/21/17 0600 Signed Impressions: Service Date/Time: May 02:40 - CONCLUSION: Increasing consolidation right lower lung. Improving consolidation left lower lung. Brandon Vaughn MD Head Magnetic Resonance Angiography 06/15/17 0000 Signed Impressions: Service Date/Time: Thursday, June 15, 2017 11:52 - CONCLUSION: MRA within normal limits. There is a parenchymal hemorrhage in the posterior right temporal lobe with intraventricular extension. Ivan Bahena MD Brain MRI 06/15/17 0000 Signed Impressions: Service Date/Time: Thursday, June 15, 2017 11:52 - CONCLUSION: 1. Large hemorrhage in the right posterior temporal lobe with rupture into the ventricular system and mild ventricular enlargement. Findings most characteristic of a hemorrhagic infarct. On followup exam would recommend contrast to exclude an enhancing underlying lesion. 2. Moderate chronic ischemic changes in periventricular white matter. No significant midline shift. Ivan Bahena MD Objective Remarks General - 77-year-old female, awake, in no distress HEENT - pupils are equal and reactive about 2.5-3 mm bilaterally, sclerae are anicteric, neck is supple, neck veins are not distended, + EVD right-sided bur hole, moist mucous membranes CV -RRR. S1, S2 no S 4. No murmurs, rubs or gallops Chest - clear to auscultation bilateral, no wheezes Abdomen - soft, nontender, not distended, BS present Extremities -warm, 1+ edema, + peripheral pulses Neuro - unchanged, awake, alert, follows commands. Comprehensive aphasia. Left gaze preference., no facial asymmetry, tongue midline, shrugs shoulders, squeezes fingers on both upper extremities but weak left side subjectively weaker strength 3 out of 5, wiggles toes Vascular Central Line Catheter: No Assessment to: Continue A/P Assessment and Plan Neuro/Psych: Right posterior temporal/occipital/parietal intra-axial hematoma Right complex partial seizure Wernicke aphasia Acute encephalopathy CT brain 06/25 revealed a right occipital parietal intra-axial hematoma with mild surrounding edema. Right bur hole ventriculostomy 316 -currently 20 cm H2O. [address] brain today On levetiracetam 500 mg twice daily for seizure. Acetaminophen 650 mg p.o. every 6 hours as needed fever/pain 1 through 10 MRI brain admission revealed right posterior temporal hemorrhage with ventricular extension MRA brain negative for aneurysm CV: Hypertensive emergency Dyslipidemia Currently on metoprolol 25 mg by mouth twice daily Currently on pravastatin 40 mg daily/on atorvastatin 40 mg daily at home Holding aspirin 81 mg daily in light of acute hemorrhage Resp: Nasal cannula to maintain saturations greater than equal to 92% Incentive spirometry while awake GI: Hypoalbuminemia Constipation Currently on pured honey thickened liquid diet per speech/nutrition's recommendations Famotidine 10 mg twice daily for GI prophylaxis Docusate sodium/senna 1 tablet twice daily for bowel regimen. Add polythene glycol 17 g daily with glycerin suppository 1 today. Last bowel movement 06/23 : Box catheter if indicated for accurate I's and O's in a critically ill patient. Current with periwick Endo: Sliding scale insulin if indicated to maintain euglycemia Renal: Creatinine currently within normal limits Monitor urine output Accurate I's and O's Heme: Leukocytosis Monitor CBC daily. Follow trend ID: [id number] and and Klebsiella pneumonia Continue cefazolin 2 g IV every 8 hours day #5 7 Pertinent cultures 06/18 -staph aureus/Klebsiella pneumonia sputum FEN: Hyponatremia Replace electrolytes as clinically indicated MSK: Osteoarthritis/osteoporosis Holding alendronate 70 mg weekly. Resume clinically indicated Access -Utilize peripheral IV. Central line if indicated Prophylaxis -GI -famotidine -DVT -SCD/holding pharmacological prophylaxis in light of left right cerebral hematoma. Initiate when okay with neurosurgery Critical Care: The total critical care time was 35 minutes. Time to perform other separately billable procedures was not included in the critical care time. Osman Babin MD Jun 27, 2017 09:21
[2017-06-27] MEDS ORDERED: SODIUM CHLORIDE 1 GRAM TAB PO ONE (09:45)
--- NOTE | 2017-06-27 09:55 | RADRPT ---
EXAM DATE/TIME: 06/27/2017 09:23 [place] COMPARISON: MRI BRAIN W/O CONTRAST, June 15, 2017, 11:52. INDICATIONS : Stroke. MEDICAL HISTORY : Cerebrovascular disease. SURGICAL HISTORY : Ventriculostomy placement. ENCOUNTER: Subsequent ACUITY: 2 weeks PAIN SCORE: 0/10 LOCATION: head. TECHNIQUE: Multiplanar, multisequence MRI of the brain was performed without contrast. FINDINGS: Today's exam is compared to the recent prior study of 06/15/2017. There has been an interval change co mpared to the prior study. On the diffusion-weighted images there is now new increased signal changes in the left occipital lobe characteristic of a new acute nonhemorrhagic cerebral infarction. There c ontinues to be changes in the right occipital lobe characteristic of patient's hemorrhagic infarct. T he ventricles are stable in size. The ventricles are midline in position. The chronic white matter ch anges are stable. There is a right ventricular catheter in place. The posterior fossa is stable. The pituitary gland remains within normal limits for size. The findings were called by telephone to the neurosurgeon. CONCLUSION: 1. New development of a nonhemorrhagic acute infarct involving the left occipital lobe. 2. Otherwise, the rest of the exam is stable compared to the prior MRI. David Moore MD on June 27, 2017 at 9:50 Board Certified Radiologist. This report was verified electronically.
[2017-06-27] MEDS ORDERED: ROCURONIUM INJ 50 MG/5 ML VIAL ONE (10:51)
--- NOTE | 2017-06-27 10:51 | HHI.NSPN ---
(Bell Mooney) Note Status Status: Progress Note (Bell Mooney) Interval History Interval History 77 year old female with large hemorrhage stroke with hydrocephalus, worsening mental status, patient became severely obtunded difficult to arouse, she underwent placement of ventriculostomy drain 06/15/1706/16: ventriculostomy draining well, intubated, opening eyes and moving right side spontaneously. 06/18: ventriculostomy draining well, remains intubated, opens eyes, tracks, moves right side, stable left paresis 06/19: ventriculostomy draining well, CSF still bloody, dark red. opens eyes and moves right side spontaneously 06/20: ventriculostomy draining well, still gross bloody CSF, intubated, but opens eyes and gave thumbs up to command 06/25: Awake, ventriculostomy draining, drain raised to 15 cm of water over the weekend with stable ICPs. 06/26: EVD raised to 20 cm H20 yesterday, ICPs remains stable overnight, however appears more lethargic today, minimally opens eyes but falls back asleep. 06/27: MRI Brain this morning with new acute nonhemorrhagic left occipital infarct. (Bell Mooney) Labs, Micro, & Vital Signs Results Date Time Temp Pulse Resp B/P (MAP) Pulse Ox O2 Delivery O2 Flow Rate FiO2 06/27/17 08:00 106 06/27/17 08:00 97.4 106 24 136/73 (94) 92 06/27/17 07:00 Nasal Cannula 2.00 92 06/27/17 06:00 102 06/27/17 04:00 100 06/27/17 04:00 98.3 102 21 140/70 (93) 93 06/27/17 02:00 71 06/27/17 00:00 98.2 99 18 133/78 (96) 94 06/27/17 00:00 100 06/26/17 22:00 104 06/26/17 20:00 86 06/26/17 20:00 98.0 86 17 145/75 (98) 94 06/26/17 19:40 94 21 06/26/17 19:00 93 Nasal Cannula 2.00 40 06/26/17 18:00 92 06/26/17 16:00 97.2 92 21 129/77 (94) 94 06/26/17 16:00 94 06/26/17 14:00 92 06/26/17 12:00 98 06/26/17 12:00 97.2 98 21 127/81 (96) 96 Constitutional Vital Signs Date Time Temp Pulse Resp B/P (MAP) Pulse Ox O2 Delivery O2 Flow Rate FiO2 06/27/17 08:00 106 06/27/17 08:00 97.4 106 24 136/73 (94) 92 06/27/17 07:00 Nasal Cannula 2.00 92 06/27/17 06:00 102 06/27/17 04:00 100 06/27/17 04:00 98.3 102 21 140/70 (93) 93 06/27/17 02:00 71 06/27/17 00:00 98.2 99 18 133/78 (96) 94 06/27/17 00:00 100 06/26/17 22:00 104 06/26/17 20:00 86 06/26/17 20:00 98.0 86 17 145/75 (98) 94 06/26/17 19:40 94 21 06/26/17 19:00 93 Nasal Cannula 2.00 40 06/26/17 18:00 92 06/26/17 16:00 97.2 92 21 129/77 (94) 94 06/26/17 16:00 94 06/26/17 14:00 92 06/26/17 12:00 98 06/26/17 12:00 97.2 98 21 127/81 (96) 96 (Bell Mooney) Review of Systems ROS Limitations: Clinical Condition, Altered Mental Status (Bell Mooney) Physical Exam Gen: Ms Patrick is comfortably in bed in no acute distress HEENT: ventriculostomy draining dark red CSF well. pupils equal, nonicteric sclera. Neck: soft, supple Musculoskeletal: no obvious deformities. Heart: regular rate rhythm Resp: clear Neuro: lethargic. CN: pupils equal. Cerebellar: cannot assess due to clinical status Skin: warm, dry (Bell Mooney) Ms Patrick has mild respiratory distress, not protecting properly her airway. Otherwise appears comfortable. HEENT: ventriculostomy clamped, draining CSF arund the tube site Neck: soft, supple Musculoskeletal: no obvious deformities. Heart: regular rate rhythm Resp: clear, mechanically vented Neuro: lethargic. CN: pupils equal 3mm reactive has new right side hemiparesis sensory. responds to pain in her left side. Cerebellar: cannot assess due to clinical status Skin: warm, dry (Andre Nixon MD) Medications Current Medications Current Medications Medications (Trade) Dose Ordered Sig/Jose Guadalupe Route PRN Reason Start Time Stop Time Status Last Admin Dose Admin Sodium Chloride (NS Flush) 2 ml UNSCH PRN IV FLUSH FLUSH AFTER USING IV ACCESS 06/15/17 05:15 06/21/17 00:43 Acetaminophen (Tylenol) 650 mg Q6H PRN PO PAIN 1-10 AND/OR FEVER >101F 06/15/17 06:30 06/23/17 20:18 Ondansetron HCl (Zofran Inj) 4 mg Q6H PRN IV PUSH NAUSEA OR VOMITING 06/15/17 06:30 Miscellaneous Information 1 Q361D XX 06/15/17 06:30 06/15/17 06:30 Chlorhexidine Gluconate (Chlorhexidine 2% Cloth) Taper DAILY@04 TOP 06/16/17 04:00 06/12/18 03:59 06/20/17 04:00 Chlorhexidine Gluconate (Chlorhexidine 2% Cloth) 3 pack UNSCH PRN TOP HYGIENIC CARE 06/15/17 06:30 Senna/Docusate Sodium (Fallon-Colace) 1 tab BID PO 06/15/17 09:00 06/25/17 21:13 Magnesium Hydroxide (Milk Of Magnesia Liq) 30 ml Q12H PRN PO Mild constipation 06/15/17 06:30 06/22/17 20:58 Sennosides (Senokot) 17.2 mg Q12H PRN PO Moderate constipation 06/15/17 06:30 Bisacodyl (Dulcolax Supp) 10 mg DAILY PRN RECTAL SEVERE CONSITIPATION 06/15/17 06:30 Lactulose (Lactulose Liq) 30 ml DAILY PRN PO SEVERE CONSITIPATION 3/16/18 06:30 06/22/17 20:58 Chlorhexidine Gluconate (Peridex 0.12% Liq) 15 ml BID@08,20 MT 06/15/17 20:00 06/26/17 08:00 Levetriacetam (Keppra) 500 mg Q12HR PO 06/17/17 11:30 06/25/17 21:13 Pravastatin Sodium (Pravachol) 40 mg HS PO 06/18/17 21:00 06/25/17 21:13 Metoprolol Tartrate (Lopressor) 25 mg Q12HR PO 06/19/17 09:00 06/25/17 21:13 Hydralazine HCl (Apresoline Inj) 10 mg Q4H PRN IV PUSH SBP greater than 160 06/20/17 12:30 06/24/17 07:11 Cefazolin Sodium 2000 mg/Sodium Chloride 120 ml @ 240 mls/hr Q8H IV 06/24/17 23:00 06/27/17 06:13 Famotidine (Pepcid) 10 mg BID PO 06/25/17 21:00 06/25/17 21:13 Chlorhexidine Gluconate (Hibiclens 4% Top Soln) 1 applic HS TOP 06/26/17 21:00 06/28/17 21:01 06/27/17 05:56 Albuterol Sulfate (Albuterol Neb) 2.5 mg Q2HR NEB PRN NEB dyspnea 06/27/17 09:15 Labetalol HCl (Trandate Inj) 10 mg Q1HR PRN IV PUSH SBP>160, DBP>90, HR>65 06/27/17 09:15 Polyethylene Glycol (Miralax) 17 gm DAILY PO 06/28/17 09:00 Propofol (Diprivan 500 Mg/ 50 ml Inj) 100 mg ONCE ONCE IV 06/27/17 10:45 06/27/17 10:46 UNV Chlorhexidine Gluconate (Peridex 0.12% Liq) 15 ml BID@08,20 MT 06/27/17 20:00 UNV Propofol 100 ml @ 0 mls/hr TITRATE PRN IV SEDATION 06/27/17 10:45 UNV Fentanyl Citrate 250 ml TITRATE PRN IV SEDATION 06/27/17 10:45 UNV (Bell Mooney) Current Medications Current Medications Sodium Chloride (NS Flush) 2 ml UNSCH PRN IV FLUSH FLUSH AFTER USING IV ACCESS Last administered on 06/21/17at 00:43; Start 06/15/17 at 05:15 Sodium Chloride 500 ml @ 500 mls/hr BOLUS ONCE IV ; Start 06/15/17 at 06:00; Stop 06/15/17 at 06:59; Status DC Nicardipine HCl 25 mg/Sodium Chloride 250 ml @ 50 mls/hr TITRATE PRN IV Blood pressure management Last administered on 06/19/17at 06:43; Start 06/15/17 at 06: 15; Stop 06/23/17 at 17:33; Status DC Pravastatin Sodium (Pravachol) 80 mg HS PO Last administered on 06/17/17at 23:23 ; Start 06/15/17 at 21:00; Stop 06/18/17 at 09:30; Status DC Levetriacetam 100 ml @ 400 mls/hr BOLUS ONCE IV Last administered on at 09:43; Start 06/15/17 at 06:30; Stop 06/15/17 at 06:44; Status DC Sodium Chloride 1,000 ml @ 100 mls/hr Q10H IV Last administered on 06/17/17at 07:29; Start 06/15/17 at 06:17; Stop 06/17/17 at 12:42; Status DC Acetaminophen (Tylenol) 650 mg Q6H PRN PO PAIN 1-10 AND/OR FEVER >101F Last administered on 06/23/17at 20:18; Start 06/15/17 at 06:30 Morphine Sulfate (Morphine Inj) 2 mg Q2H PRN IV PUSH PAIN SCALE 6 TO 10 Last administered on 06/19/17at 08:29; Start 06/15/17 at 06:30; Stop 06/20/17 at 08:25 ; Status DC Famotidine (Pepcid Inj) 10 mg Q12HR IV PUSH Last administered on 06/25/17at 08: 45; Start 06/15/17 at 09:00; Stop 06/25/17 at 16:28; Status DC Ondansetron HCl (Zofran Inj) 4 mg Q6H PRN IV PUSH NAUSEA OR VOMITING; Start at 06:30 Albuterol/ Ipratropium (Duoneb Neb) 1 ampule Q4HR NEB PRN INH WHEEZING; Start 06/15/17 at 06:30; Stop 06/27/17 at 09:15; Status DC Miscellaneous Information 1 Q361D XX Last administered on 06/15/17at 06:30; Start 06/15/17 at 06:30 Chlorhexidine Gluconate (Chlorhexidine 2% Cloth) Taper DAILY@04 TOP Last administered on 06/20/17at 04:00; Start 06/16/17 at 04:00; Stop 06/12/18 at 03:59 Chlorhexidine Gluconate (Chlorhexidine 2% Cloth) 3 pack UNSCH PRN TOP HYGIENIC CARE; Start 06/15/17 at 06:30 Senna/Docusate Sodium (Fallon-Colace) 1 tab BID PO Last administered on at 21:13; Start 06/15/17 at 09:00 Magnesium Hydroxide (Milk Of Magnesia Liq) 30 ml Q12H PRN PO Mild constipation Last administered on 06/22/17at 20:58; Start 06/15/17 at 06:30 Sennosides (Senokot) 17.2 mg Q12H PRN PO Moderate constipation; Start 06/15/17 at 06:30 Bisacodyl (Dulcolax Supp) 10 mg DAILY PRN RECTAL SEVERE CONSITIPATION; Start at 06:30 Lactulose (Lactulose Liq) 30 ml DAILY PRN PO SEVERE CONSITIPATION Last administered on 06/22/17at 20:58; Start 06/15/17 at 06:30 Rocuronium Mclean (Zemuron Inj) 100 mg BOLUS ONCE IV Last administered on at 14:34; Start 06/15/17 at 14:00; Stop 06/15/17 at 14:01; Status DC Midazolam HCl (Versed Inj) 5 mg ONCE ONCE IV PUSH Last administered on at 14:35; Start 06/15/17 at 14:00; Stop 06/15/17 at 14:01; Status DC Chlorhexidine Gluconate (Peridex 0.12% Liq) 15 ml BID@08,20 MT Last administered on 06/26/17at 08:00; Start 06/15/17 at 20:00 Propofol 100 ml @ 0 mls/hr TITRATE PRN IV SEDATION; Start 06/15/17 at 14:00; Status UNV Midazolam HCl (Versed Inj) 5 mg STK-MED ONCE .ROUTE ; Start 06/15/17 at 14:07; Stop 06/15/17 at 14:08; Status DC Rocuronium Mclean (Zemuron Inj) 50 mg STK-MED ONCE .ROUTE ; Start 06/15/17 at 14:07; Stop 06/15/17 at 14:08; Status DC Propofol 100 ml @ 1.941 mls/ hr TITRATE PRN IV SEDATION Last administered on at 14:41; Start 06/15/17 at 14:45; Stop 06/21/17 at 14:09; Status DC Miscellaneous Information (RASS Change Order) 1 ea ONCE ONCE XX Last administered on 06/15/17at 14:45; Start 06/15/17 at 14:45; Stop 06/15/17 at 14:46 ; Status DC Norepinephrine Bitartrate 4 mg/ Sodium Chloride 250 ml @ 7.5 mls/hr TITRATE PRN IV Maintain MAP > 70 mmHg; Start 06/15/17 at 19:45; Stop 06/15/17 at 21:37; Status DC Norepinephrine Bitartrate 4 mg/ Sodium Chloride 250 ml @ 7.5 mls/hr TITRATE PRN IV Maintain MAP > 70 mmHg Last administered on 06/15/17at 19:00; Start at 21:45; Stop 06/20/17 at 08:11; Status DC Levetriacetam (Keppra) 500 mg Q12HR PO Last administered on 06/25/17at 21:13; Start 06/17/17 at 11:30 Potassium Chloride 20 meq/ Lactated Ringer's 1,010 ml @ 42 mls/hr Q24H IV ; Start 06/17/17 at 12:45; Stop 06/17/17 at 13:02; Status DC Potassium Chloride 10 meq/ Lactated Ringer's 505 ml @ 42 mls/hr Q12H2M IV Last administered on 06/19/17at 22:32; Start 06/17/17 at 13:15; Stop 06/20/17 at 08:13; Status DC Pravastatin Sodium (Pravachol) 40 mg HS PO Last administered on 06/25/17at 21:13 ; Start 06/18/17 at 21:00 Potassium Phosphate 15 mmol/ Sodium Chloride 155 ml @ 38.75 mls/ hr ONCE ONCE IV Last administered on 06/19/17at 08:50; Start 06/19/17 at 08:00; Stop at 11:59; Status DC Metoprolol Tartrate (Lopressor) 25 mg Q12HR PO Last administered on 06/25/17at 21:13; Start 06/19/17 at 09:00 Pharmacy Profile Note 0 ml @ 0 mls/hr UNSCH OTHER ; Start 06/20/17 at 08:15; Stop 06/21/17 at 14:09; Status DC Albuterol/ Ipratropium (Duoneb Neb) 1 ampule Q6HR NEB NEB Last administered on 06/24/17at 07:16; Start 06/20/17 at 10:00; Stop 06/24/17 at 09:59; Status DC Vancomycin HCl 1250 mg/Sodium Chloride 262.5 ml @ 262.5 mls/ hr ONCE ONCE IV Last administered on 06/20/17at 13:29; Start 06/20/17 at 12:00; Stop 06/20/17 at 12:59; Status DC Hydralazine HCl (Apresoline Inj) 10 mg Q4H PRN IV PUSH SBP greater than 160 Last administered on 06/24/17at 07:11; Start 06/20/17 at 12:30 Potassium Phosphate 15 mmol/ Sodium Chloride 155 ml @ 38.75 mls/ hr ONCE ONCE IV Last administered on 06/20/17at 17:05; Start 06/20/17 at 13:45; Stop at 17:44; Status DC Furosemide (Lasix Inj) 40 mg ONCE ONCE IV PUSH Last administered on 06/21/17at 08:53; Start 06/21/17 at 08:30; Stop 06/21/17 at 08:31; Status DC Cefazolin Sodium/ Dextrose 50 ml @ 100 mls/hr Q8H IV Last administered on 06/24at 15:02; Start 06/21/17 at 15:00; Stop 06/24/17 at 21:47; Status DC Cefazolin Sodium 2000 mg/Sodium Chloride 120 ml @ 240 mls/hr Q8H IV Last administered on 06/27/17at 06:13; Start 06/24/17 at 23:00 Famotidine (Pepcid) 10 mg BID PO Last administered on 06/25/17at 21:13; Start at 21:00 Chlorhexidine Gluconate (Hibiclens 4% Top Soln) 1 applic HS TOP Last administered on 06/27/17at 05:56; Start 06/26/17 at 21:00; Stop 06/28/17 at 21:01 Acetaminophen 100 ml @ As Directed STK-MED ONCE IV ; Start 06/27/17 at 07:04; Stop 06/27/17 at 07:05; Status DC Artificial Tears (Lacrilube Opht Oint) 3.5 applic STK-MED ONCE .ROUTE ; Start at 07:05; Stop 06/27/17 at 07:06; Status DC Lidocaine/ Epinephrine (Xylocaine-Epi 1%-1:100,000 Inj) 30 ml STK-MED ONCE .ROUTE ; Start 06/27/17 at 07:32; Stop 06/27/17 at 07:33; Status DC Thrombin (Thrombin Top Soln) 10,000 units STK-MED ONCE .ROUTE ; Start 06/27/17 at 07:32; Stop 06/27/17 at 07:33; Status DC Gelatin (Gelfoam 100 Top) 1 foam STK-MED ONCE .ROUTE ; Start 06/27/17 at 07:32; Stop 06/27/17 at 07:33; Status DC Bacitracin (Baciguent Oint) 15 applic STK-MED ONCE .ROUTE ; Start 06/27/17 at 07 :32; Stop 06/27/17 at 07:33; Status DC Gentamicin Sulfate (Gentamicin Inj) 240 mg STK-MED ONCE .ROUTE ; Start 06/27/17 at 07:33; Stop 06/27/17 at 07:34; Status DC Albuterol Sulfate (Albuterol Neb) 2.5 mg Q2HR NEB PRN NEB dyspnea; Start at 09:15 Labetalol HCl (Trandate Inj) 10 mg Q1HR PRN IV PUSH SBP>160, DBP>90, HR>65; Start 06/27/17 at 09:15 Polyethylene Glycol (Miralax) 17 gm ONCE ONCE PO ; Start 06/27/17 at 09:15; Stop 06/27/17 at 09:19; Status DC Polyethylene Glycol (Miralax) 17 gm DAILY PO ; Start 06/28/17 at 09:00 Glycerin (Glycerin Adult Supp) 2 gm ONCE ONCE RECTAL ; Start 06/27/17 at 09:15 ; Stop 06/27/17 at 09:20; Status DC Sodium Chloride (Sodium Chloride) 1 gm ONCE ONCE PO ; Start 06/27/17 at 09:45; Stop 06/27/17 at 10:35; Status DC Propofol (Diprivan 500 Mg/ 50 ml Inj) 100 mg ONCE ONCE IV ; Start 06/27/17 at 10:45; Stop 06/27/17 at 10:46; Status UNV Chlorhexidine Gluconate (Peridex 0.12% Liq) 15 ml BID@08,20 MT ; Start 06/27/17 at 20:00; Status UNV Propofol 100 ml @ 0 mls/hr TITRATE PRN IV SEDATION; Start 06/27/17 at 10:45; Status UNV Fentanyl Citrate 250 ml TITRATE PRN IV SEDATION; Start 06/27/17 at 10:45; Status UNV Lidocaine HCl (Xylocaine 2% Inj) 100 mg ONCE ONCE IV PUSH ; Start 06/27/17 at 11:00; Stop 06/27/17 at 11:01; Status UNV Etomidate (Amidate Inj) 40 mg ONCE ONCE IV PUSH ; Start 06/27/17 at 11:00; Stop 06/27/17 at 11:01; Status UNV Rocuronium Mclean (Zemuron Inj) 100 mg BOLUS ONCE IV ; Start 06/27/17 at 11:00 ; Stop 06/27/17 at 11:01; Status UNV Lidocaine/ Epinephrine (Xylocaine-Epi 1%-1:100,000 Inj) 30 ml STK-MED ONCE .ROUTE ; Start 06/27/17 at 10:50; Stop 06/27/17 at 10:51; Status DC Rocuronium Mclean (Zemuron Inj) 100 mg STK-MED ONCE .ROUTE ; Start 06/27/17 at 10:51; Stop 06/27/17 at 10:52; Status DC (Andre Nixon MD) Medical Decision Making MDM Remarks 77 y/o female with large hemorrhagic stroke, she had evidence of hydrocephalus, she underwent placement of ventriculostomy drain 06/15/17 due to worsening mental status with improvement of mental status Challenging ventriculostomy drain, patient appearing more lethargic not tolerating raising level of ventriculostomy drain (Bell Mooney) Plan Plan Remarks new left occipital CVA on MRI Brain this morning, hold COMMUNITY HEALTH EDUCATOR shunt placement for now, replace ventriculostomy drain due to persistent hydrocephalus critical care management (Bell Mooney) Attending Statement Neuro. Her neurological consition has deteriorated overnight. She has developed new deficits with right sided weakness and worsening aphasia. Will obtain stat MRI of the brain to rule out a left side ischemic infarction. Will hold off in COMMUNITY HEALTH EDUCATOR shunt. I recommend placement of a left sided ventriculostomy catheter. Pulmonary. Her pulmonary condition is deteriorating. She is not protecting her airway. Her condition requires endotracheal intubation and mechanical ventilation. Continue mechanical ventilation, aggressive pulmonary toilette, nasotracheal suction, and breathing treatments with nebulizers. Discussed extensively with neurologist, Dr Zabala and with Dr Babin. Daily PT and OT Renal. Continue to monitor closely urine output, BUN and creatinine Endocrine. Continue to Monitor serial Acu checks and SSI as needed in detail ID continue to monitor for signs of infection Continue Protonix for stress ulcer prophylaxis Continue Nickolas hose and SCD's for DVT prophylaxis Further recommendations will be provided depending on the patient's clinical evaluation and follow up studies. The exam, history, and the medical decision-making described in the above note were completed with the assistance of the mid-level provider. I reviewed and agree with the findings presented. I attest that I had a [id number] encounter with the patient on the same day, and personally performed and documented my assessment and findings in the medical record. Addendum. Her MRI showed a new left ischemic infarction Will iniciate workup with echocardiogram, neck and brain CTA (Andre Nixon MD) Bell Mooney Jun 27, 2017 10:51 Andre Nixon MD Jun 27, 2017 11:05
[2017-06-27] MEDS ORDERED: LIDOCAINE HCL 2% 100 MG/5 ML SYRINGE IV PUSH ONE (11:00)
[2017-06-27] MEDS ORDERED: PROPOFOL 500 MG/50 ML BTL IV ONE (11:00)
[2017-06-27] MEDS ORDERED: ETOMIDATE 40 MG/20 ML VIAL IV PUSH ONE (11:00)
--- NOTE | 2017-06-27 11:27 | RADRPT ---
EXAM DATE/TIME: 06/27/2017 10:51 [facility] COMPARISON: CHEST SINGLE AP, June 21, 2017, 2:40. INDICATIONS : Post intubation. MEDICAL HISTORY : Stroke. SURGICAL HISTORY : None. ENCOUNTER: Subsequent ACUITY: 1 day PAIN SCORE: Non-responsive. LOCATION: Bilateral chest FINDINGS: An endotracheal tube has been inserted. Its distal tip is approximately 3 cm above the [place]. There is improved lung aeration with clearing basilar airspace disease. Mild peribronchial air space disease remains evident in the right infrahilar region. Gaseous distention of stomach is noted. CONCLUSION: 1. Satisfactory position of recently placed endotracheal tube 2. Improved lung aeration with clearing basilar airspace disease. 3. Gaseous distention of the stomach. Rene Lomeli MD on June 27, 2017 at 11:23 Board Certified Radiologist. This report was verified electronically.
[2017-06-27] MEDS ORDERED: ROCURONIUM INJ 100 MG/10 ML VIAL IV ONE (11:30)
--- NOTE | 2017-06-27 11:31 | PD.PROCEDR ---
Procedure Note Procedure DATE: 06/27/2017 PROCEDURE: Orotracheal intubation INDICATION: Acute respiratory failure DETAILS OF PROCEDURE The patient was placed in optimal position and preoxygenated with 100% FiO2 via bag valve mask. At the start oxygen saturation was 100%. The patient was administered 20 milligrams etomidate IV and 50 milligrams rocuronium IV. I entered the oropharynx with a size 4 laryngoscope blade and obtained a grade 3 view of the airway. On single attempt a size 7.5 cuffed endotracheal tube was passed through the vocal cords. Correct tube location was confirmed with end tidal CO2 detector and by auscultating over bilateral lung de la paz. The endotracheal tube was secured with adhesive tape at a depth of 23 cm at the lips. The patient was connected to the ventilator. The patient tolerated the procedure well without any apparent complications. Oxygen saturations were maintained greater than 95% all times. STAT chest x-ray pending at time of dictation. Osman Babin MD Jun 27, 2017 11:31
--- NOTE | 2017-06-27 14:06 | RADRPT ---
EXAM DATE/TIME: 06/27/2017 12:59 [facility] COMPARISON: No previous studies available for comparison. INDICATIONS : Cerebrovascular accident. MEDICAL HISTORY : Hypercholesterolemia. Hypertension. Headache. Weakness. CVA. SURGICAL HISTORY : None. ENCOUNTER: Initial ACUITY: 1 day PAIN SCORE: Nonresponsive. LOCATION: Bilateral neck PEAK SYSTOLIC VELOCITIES (cm/sec): ICA/CCA RATIO: Right: 1.8 Left: 0.9 ICA: Right: 128 Left: 54 CCA: Right: 73 Left: 63 ECA: Right: 95 Left: 72 VERTEBRAL: Right: 39 antegrade Left: 72 antegrade Elevated flow velocities and ICA/CCA ratios have been found to correlate with increased degrees of vessel stenosis, calculated as percentage of diameter relative to a normal segment of distal ICA/CCA FINDINGS: RIGHT CAROTID: There is moderate atherosclerotic plaquing at the carotid bifurcation. There is an elevated velocity in the right internal carotid artery. There is flow in the external carotid artery. LEFT CAROTID: There is moderate atherosclerotic plaquing at the carotid bifurcation. There is flow in the internal and external vessels. VERTEBRAL ARTERIES: Antegrade flow is seen in both vertebral arteries. MISCELLANEOUS: None. CONCLUSION: 1. Moderate diffuse atherosclerotic plaquing at both carotid bifurcations. 2. Mild elevated velocity in the proximal right internal carotid artery. If clinically indicated, rec ommend CTA of the carotid arteries for further evaluation. 3. No definite high grade or hemodynamically significant stenosis is demonstrated. David Moore MD on June 27, 2017 at 14:02 Board Certified Radiologist. This report was verified electronically.
[2017-06-27 15:22] LABS: HEMATOCRIT 35.1 % (35.0-46.0); MEAN CELL VOLUME 88.1 FL (80.0-100.0); MEAN CORPUSCULAR HGB CONC 34.1 % (32.0-36.0); MEAN PLATELET VOLUME 8.8 FL (7.0-11.0); PLATELET COUNT 285 TH/MM3 (150-450); RED BLOOD COUNT 3.99 MIL/MM3 (4.00-5.30); RED CELL DISTRIBUTION WIDTH 13.1 % (11.6-17.2); WHITE BLOOD COUNT 10.6 TH/MM3 (4.0-11.0)
[2017-06-27 15:47] LABS: BICARBONATE 24.4 MEQ/L (21.0-32.0); CALCIUM 8.6 MG/DL (8.5-10.1); CREATININE 0.7 MG/DL (0.50-1.00)
--- NOTE | 2017-06-27 17:10 | OTSOAPIP ---
TIME SESSION COMPLETED: PM TREATMENT TIME: 0 MINS. CHART REVIEWED. INTERDISCIPLINARY COMMUNICATION: NURSING REPORTED PATIENT WAS JUST RE-INTUBATED REQUEST TO SEE PATIENT NEXT TREATMENT PLAN: WILL SEE PATIENT NEXT TREATMENT DAY Therapist: LEANA TRUONG/Leonardo Signature on file
--- NOTE | 2017-06-27 17:37 | PD.OP ---
Operative Report Date of Surgery: Jun 27, 2017 Preoperative Diagnosis: Hemorrhagic cerebrovascular accident with intraventricular hemorrhage and hydrocephalus Postoperative Diagnosis: Hemorrhagic cerebrovascular accident with intraventricular hemorrhage and hydrocephalus Procedure: Left frontal Kan hole with placement of a ventriculostomy catheter Anesthesia: local Surgeon: Andre Nixon Metal Turner(s): Bell trevino Operation and Findings: INDICATIONS FOR THE PROCEDURE Ms Patrick is a a77 year olod female who was brought to [facility] with altered mental status. CT and MRI show a hemorrhagic infarction with intraventricular hemorrhage and hydrocephalus. Her condition was getting progressively worse. She had a prior ventriculostomy which failed challenging and was leaking from the insertion site,. Placement of a new venriculostomy catheter was indicated as recommended by the [employer] of [employer] The [id number] details of the procedure, its indications, alternatives, risks and potential complications were fully discussed with the patients family. She fully understood. All questions were answered. No guarantees were given. The patient voiced requesting the procedure and provided informed consents. The patient familywas offered the alternative of not having aggressive management. DETAILS OF THE SURGICAL PROCEDURE The left frontal area was shaved, prepped and draped in the usual sterile fashion. An entry point was selected 90 millimeters posterior to the supraorbital rim and 25 millimeters from the midline. The area was infiltrated with 1% lidocaine with epinephrine. A skin incision was made with a #15 blade down to the level of the periosteum. Using a twist drill, a kan hole was made. The dura was carefully opened with a brain needle and a ventriculostomy catheter was advanced into the ventricular system. At a depth of 70 millimeters, cerebrospinal fluid was obtained. Opening pressure was 15 centimeters of water. A specimen of cerebrospinal fluid was collected and sent to the lab for analysis of the glucose, protein, cell count and cultures. The catheter was then tunneled under the galea and externalized through a separate stab incision. The incision was closed with 3-0 nylon in a single plane. The patient tolerated the procedure well. COMPLICATIONS There were no intraoperative complications. BLOOD LOSS Blood loss was minimal. Andre Nixon MD Jun 27, 2017 17:37
[2017-06-27 17:53] LABS: CSF LYMPHOCYTES 11 %; CSF MONOCYTES 1 %; CSF NEUTROPHILS 88 %
[2017-06-27 17:59] LABS: VOLUME TUBE # 1 5.3 ML
[2017-06-27 18:12] LABS: SUPERNATE COLOR TUBE #1 XANTHOCHROMIC (CLEAR); WBC TUBE #1 41 /MM3 (0-10)
[2017-06-27 18:13] LABS: RBC TUBE #1 11246 /MM3
[2017-06-27 18:20] LABS: TOTAL PROTEIN,CSF 106.2 MG/DL (15.0-45.0)
[2017-06-27] MEDS ORDERED: CHLORHEXIDINE 0.12% (ORAL KIT) 15 ML CUP MT SCH (20:00)
[2017-06-27] MEDS: PRAVASTATIN SOD 40 MG TAB PO SCH (21:34)
[2017-06-28] VITALS (17 sets, daily range): BP systolic 102–142; BP diastolic 57–77; PULSE 80–126; RESP 14–22; TEMP 98–99.1; O2SAT 94–100
[2017-06-28] MEDS: CEFAZOLIN INJ 2,000 MG in SODIUM CHLORIDE 0.9% INJ 100 ML IV SCH ×4 (00:08→23:06)
[2017-06-28] MEDS: PROPOFOL 1000 MG/100 ML INJ 100 ML IV PRN ×2 (00:08→13:58)
[2017-06-28] MEDS: CHLORHEXIDINE GLUCONATE 2 % 1 PACK (2 CLOTHS) TOP SCH (03:34)
[2017-06-28 04:40] LABS: AUTOMATED NEUTROPHIL # 10.2 TH/MM3 (1.8-7.7); BASOPHIL # 0.1 TH/MM3 (0-0.2); BASOPHIL % 0.5 % (0.0-2.0); EOSINOPHIL % 0.1 % (0.0-4.0); HEMATOCRIT 34.7 % (35.0-46.0); LYMPHOCYTE # 1.7 TH/MM3 (1.0-4.8); MEAN CELL VOLUME 87.7 FL (80.0-100.0); MEAN CORPUSCULAR HEMOGLOBIN 30.4 PG (27.0-34.0); MEAN CORPUSCULAR HGB CONC 34.6 % (32.0-36.0); MEAN PLATELET VOLUME 8.9 FL (7.0-11.0); MONO % 5.7 % (0.0-8.0); MONOCYTE # 0.7 TH/MM3 (0-0.9); NEUT % 80.7 % (16.0-70.0); PLATELET COUNT 284 TH/MM3 (150-450); RED BLOOD COUNT 3.95 MIL/MM3 (4.00-5.30); RED CELL DISTRIBUTION WIDTH 13.1 % (11.6-17.2); WHITE BLOOD COUNT 12.7 TH/MM3 (4.0-11.0)
[2017-06-28 05:09] LABS: ALKALINE PHOSPHATASE 126 U/L (45-117); ALT (GPT) 16 U/L (10-53); TOTAL PROTEIN 6.6 GM/DL (6.4-8.2)
[2017-06-28 05:16] LABS: ALBUMIN 2.1 GM/DL (3.4-5.0); AST (GOT) 41 U/L (15-37); BICARBONATE 24.8 MEQ/L (21.0-32.0); BLOOD UREA NITROGEN 23 MG/DL (7-18); CALCIUM 8.4 MG/DL (8.5-10.1); CHLORIDE 102 MEQ/L (98-107); CREATININE 0.82 MG/DL (0.50-1.00); GLOMERULAR FILTRATION RATE 67 ML/MIN (>89); GLUCOSE,RANDOM 102 MG/DL (74-106); SODIUM (NA) 136 MEQ/L (136-145)
[2017-06-28] MEDS: CHLORHEXIDINE 0.12% (ORAL KIT) 15 ML CUP MT SCH ×2 (08:00→22:56)
[2017-06-28] MEDS: DOCUSATE SODIUM 50 MG/SENNA 8.6 MG TAB PO SCH ×2 (08:31→22:57)
[2017-06-28] MEDS: levETIRAcetam 500 MG TAB PO SCH ×2 (08:31→22:56)
[2017-06-28] MEDS: FAMOTIDINE 20 MG TAB PO SCH ×2 (08:31→22:56)
--- NOTE | 2017-06-28 08:53 | MG ---
cc: Fernando George MD, PhD DATE OF THE STUDY: 06/27/2017 TEST NUMBER: [id number]. TECHNIQUE: Seventeen channel EEG. DESCRIPTION: The background rhythm reveals generalized slowing mainly in the theta frequency at about 6 Hz. At times, there does appear to be an alpha rhythm, but the majority of the tracing is slow at 6 Hz, sometimes as low as 5 Hz. No lateralizing features are identified. No epileptiform features are identified. There is some muscle artifact, mainly frontally. Photic is done in a stepwise fashion, with no real significant driving response. INTERPRETATION: This is an abnormal study. There mild to moderate slowing, consistent with a mild to moderate encephalopathy. Fernando George MD, PhD JADA/ARI , 05:20 PM , 05:29 PM
[2017-06-28] MEDS ORDERED: POLYETHYLENE GLYCOL 17 GM PKG PO SCH (09:00)
[2017-06-28] MEDS: METOPROLOL TARTRATE 25 MG TAB PO SCH ×2 (09:00→22:56)
--- NOTE | 2017-06-28 09:06 | HHI.PR ---
Review/Management Diagnosis/Plan: (1) Acute ischemic left MCA stroke ICD Codes: I63.512 - Cerebral infarction due to unspecified occlusion or stenosis of left middle cerebral artery Status: Acute Plan: left posterior mca temp-occipital infarct carotid u/s rt carotid stenosis- doesn't explain infarct mra brain previous nml 06/17 lipids nml recs f/u echo consider antiplatelets when feasible check esr, crp, rigo, hyper coag labs challenging management decision with ICH and now Ischemic Infarct (2) Intracranial hemorrhage ICD Codes: I62.9 - Nontraumatic intracranial hemorrhage, unspecified Status: Acute Plan: rt o-p ich large spontaneous, likely hypertensive mra brain-nml, s/p left vp lab shunt 06/27 (3) Encephalopathy, metabolic ICD Codes: G93.41 - Metabolic encephalopathy Status: Acute Plan: due to ich (4) Hypertensive emergency ICD Codes: I16.1 - Hypertensive emergency Status: Acute Plan: improved on bp meds (5) C[place] (acute kidney injury) ICD Codes: N17.9 - Acute kidney failure, unspecified Status: Acute Subjective Subjective Comments intubated Active Medications Current Medications Medications (Trade) Dose Ordered Sig/Jose Guadalupe Route Start Time Stop Time Status Last Admin (NS Flush) 2 ml UNSCH PRN IV FLUSH 06/15/17 05:15 06/21/17 00:43 (Tylenol) 650 mg Q6H PRN PO 06/15/17 06:30 06/23/17 20:18 (Zofran Inj) 4 mg Q6H PRN IV PUSH 06/15/17 06:30 Miscellaneous Information 1 Q361D XX 06/15/17 06:30 06/15/17 06:30 (Chlorhexidine 2% Cloth) Taper DAILY@04 TOP 06/16/17 04:00 06/12/18 03:59 06/20/17 04:00 (Chlorhexidine 2% Cloth) 3 pack UNSCH PRN TOP 06/15/17 06:30 (Fallon-Colace) 1 tab BID PO 06/15/17 09:00 06/28/17 08:31 (Milk Of Magnesia Liq) 30 ml Q12H PRN PO 06/15/17 06:30 06/22/17 20:58 (Senokot) 17.2 mg Q12H PRN PO 06/15/17 06:30 (Dulcolax Supp) 10 mg DAILY PRN RECTAL 06/15/17 06:30 (Lactulose Liq) 30 ml DAILY PRN PO 06/15/17 06:30 06/22/17 20:58 (Peridex 0.12% Liq) 15 ml BID@08,20 MT 06/15/17 20:00 06/28/17 08:00 (Keppra) 500 mg Q12HR PO 06/17/17 11:30 06/28/17 08:31 (Pravachol) 40 mg HS PO 06/18/17 21:00 06/27/17 21:34 (Lopressor) 25 mg Q12HR PO 06/19/17 09:00 06/27/17 21:35 (Apresoline Inj) 10 mg Q4H PRN IV PUSH 06/20/17 12:30 06/24/17 07:11 Cefazolin Sodium 2000 mg/Sodium Chloride 120 ml @ 240 mls/hr Q8H IV 06/24/17 23:00 06/28/17 06:17 (Pepcid) 10 mg BID PO 06/25/17 21:00 06/28/17 08:31 (Hibiclens 4% Top Soln) 1 applic HS TOP 06/26/17 21:00 06/28/17 21:01 06/27/17 05:56 (Albuterol Neb) 2.5 mg Q2HR NEB PRN NEB 06/27/17 09:15 (Trandate Inj) 10 mg Q1HR PRN IV PUSH 06/27/17 09:15 (Miralax) 17 gm DAILY PO 06/28/17 09:00 06/28/17 08:31 Propofol 100 ml @ 2.073 mls/ hr TITRATE PRN IV 06/27/17 11:00 06/28/17 00:08 Fentanyl Citrate 250 ml @ 5 mls/hr TITRATE PRN IV 06/27/17 11:00 Allergies Allergies Coded Allergies No Known Allergies (Unverified Adverse Reaction, Unknown, 06/15/17) Review of Systems All other ROS: Unable to obtain (not verbal at this time) Exam I&O / VS Vital Signs Date Time Temp Pulse Resp B/P (MAP) Pulse Ox O2 Delivery O2 Flow Rate FiO2 06/28/17 08:07 100 40 06/28/17 06:00 86 06/28/17 04:15 98 40 06/28/17 04:00 98.2 83 14 102/57 (72) 100 06/28/17 04:00 83 06/28/17 04:00 40 06/28/17 02:00 81 06/28/17 00:00 80 06/28/17 00:00 98.5 80 14 112/59 (76) 100 06/28/17 00:00 40 06/27/17 23:56 100 40 06/27/17 22:00 101 06/27/17 20:25 99 50 06/27/17 20:00 98.4 105 14 107/64 (78) 99 06/27/17 20:00 105 06/27/17 20:00 50 06/27/17 19:00 99 Mechanical Ventilator 50 06/27/17 18:00 114 06/27/17 16:00 114 06/27/17 16:00 70 06/27/17 16:00 98.3 114 16 118/68 (85) 100 06/27/17 15:44 100 50 06/27/17 14:00 109 06/27/17 12:00 98.7 106 15 175/93 (120) 100 06/27/17 12:00 106 06/27/17 11:30 100 100 06/27/17 11:04 70 06/27/17 10:00 106 Respiratory: Non-labored respirations, Symmetrical expansion Exam Comments intubated, on propofol, not following, grimaces, ou 2-1.5mm, less spontaneous rt ue movement, flexion with left Objective Micro and Labs Laboratory Tests Test 06/27/17 11:20 06/27/17 11:38 06/27/17 14:42 06/28/17 04:20 CSF Volume (Tube 1) 5.3 CSF Supernatant Color (tube 1) XANTHOCHROMIC CSF Gross Blood (Tube 1) 2+ CSF WBC (Tube 1) 41 CSF RBC (Tube 1) 17379 CSF Supernatant Color (tube 3) CSF Gross Blood (Tube 3) CSF WBC (Tube 3) CSF RBC (Tube 3) CSF Neutrophils 88 CSF Lymphocytes 11 CSF Monocytes 1 CSF Differential Comment CSF Glucose 57 CSF Total Protein 106.2 Blood Gas Puncture Site RT RADIAL Blood Gas Patient Temperature 98.6 Blood Gas HCO3 22 Blood Gas Base Excess -0.2 Blood Gas Oxygen Saturation 98 Arterial Blood pH 7.53 Arterial Blood Partial Pressure CO2 27 Arterial Blood Partial Pressure O2 400 Arterial Blood Oxygen Content 18.4 Arterial Blood Carboxyhemoglobin 0.9 Arterial Blood Methemoglobin 0.7 Blood Gas Hemoglobin 12.6 Oxygen Delivery Device VENTILATOR Blood Gas Ventilator Setting Blood Gas Inspired Oxygen 100 White Blood Count 10.6 12.7 Red Blood Count 3.99 3.95 Hemoglobin 12.0 12.0 Hematocrit 35.1 34.7 Mean Corpuscular Volume 88.1 87.7 Mean Corpuscular Hemoglobin 30.0 30.4 Mean Corpuscular Hemoglobin Concent 34.1 34.6 Red Cell Distribution Width 13.1 13.1 Platelet Count 285 284 Mean Platelet Volume 8.8 8.9 Blood Urea Nitrogen 22 23 Creatinine 0.70 0.82 Random Glucose 101 102 Calcium Level 8.6 8.4 Sodium Level 136 136 Potassium Level 4.2 4.8 Chloride Level 101 102 Carbon Dioxide Level 24.4 24.8 Anion Gap 11 9 Estimat Glomerular Filtration Rate 81 67 Neutrophils (%) (Auto) 80.7 Lymphocytes (%) (Auto) 13.0 Monocytes (%) (Auto) 5.7 Eosinophils (%) (Auto) 0.1 Basophils (%) (Auto) 0.5 Neutrophils # (Auto) 10.2 Lymphocytes # (Auto) 1.7 Monocytes # (Auto) 0.7 Eosinophils # (Auto) 0.0 Basophils # (Auto) 0.1 CBC Comment DIFF FINAL Differential Comment Total Protein 6.6 Albumin 2.1 Phosphorus Level 3.0 Magnesium Level 2.0 Alkaline Phosphatase 126 Aspartate Amino Transf (AST/SGOT) 41 Alanine Aminotransferase (ALT/SGPT) 16 Total Bilirubin 1.0 Date/Time Source Procedure Growth Status 06/15/17 05:26 Blood Peripheral Aerobic Blood Culture - Final NO GROWTH IN 5 DAYS Complete 06/15/17 05:26 Blood Peripheral Anaerobic Blood Culture - Final NO GROWTH IN 5 DAYS Complete 06/27/17 11:20 Cerebral Spinal Fluid Shunt Fluid Gram Stain - Final Resulted 06/27/17 11:20 Cerebral Spinal Fluid Shunt Fluid CSF Culture Pending Resulted 06/18/17 05:40 Sputum Endotracheal Gram Stain - Final Complete 06/18/17 05:40 Sputum Culture - Final Staphylococcus Aureus Klebsiella Pneumoniae Complete Jose Cruz Crowell MD Jun 28, 2017 09:06
--- NOTE | 2017-06-28 13:48 | HHI.CCPN ---
Subjective Remarks/Hospital Course Severely dehydrated, elderly woman presents confused to [facility] ED with hypertensive urgency and semi-acute right hemispheric parenchymal brain hemorrhage. Arrived from [facility] on cardene gtt and aphasic. Handness not determined yet. Unable to get ROS. No anticoagulants. INR normal. 06/16: Flaccid left side. Minimal eye opening. Moves right arm and leg to stimulation. Breathes over vent. ICP control, EVD draining well. 06/17: Moving both arms, right much stronger. More alert but episodic apnea spells. 06/18: No events over the night. Patient remains intubated, off sedation. She is currently on pressure support, 01/04, doing well. Awake, following commands. Son present at bedside. T-max of 99.6. I/O 250/1545. 06/19: No events over the night. Patient did well yesterday on pressure support , but was not able to be extubated secondary to no cuff leak. She remains on Cardene currently at 9.5 mg/h. Afebrile with a T-max of 99.4. Negative fluid balance. 06/20: Patient did well over the night. T-max of 100.2. ICP of 4. Thick sputum secretions sent yesterday for culture now growing Staphylococcus. Patient is awake, off sedation following some commands. Off Cardene drip since yesterday. 06/21: Patient did well postextubation and over the night. T-max of 100 yesterday morning. Very good urine output. Patient awake following commands, denying any pain. 06/22: No events over the night. Patient doing well. She is awake and alert, denies headache, nausea, vomiting. No chest pain, no dyspnea, no palpitations. On 2 L nasal cannula. Afebrile over the last 24 hours. Diuresed well post Lasix and she is on negative fluid balance since admission. 06/23: Patient awake, feels better, denies chest pain, shortness of breath, palpitations, headache. Still has productive cough. Afebrile, urine output is adequate. 06/24: No events over the night. Patient afebrile over the last 24 hours. She remains awake, resting in bed, denies any complaints. Sons at bedside. 06/25: Resting comfortably. Drowsy, arousable. EVD at 15cm, drained 60 cc overnight. 06/26: Resting comfortably. Awake and alert. EVD in place drain 10 cc overnight however has some clear fluid draining around ventriculostomy site. Dr. Nixon planning [employer] shunt for tomorrow. 06/27: Afebrile. Less arousable today. Eyes are closed. Subjective left-sided weakness. EVD in place at 20 cm. 4 cc overnight. On cefazolin with clear fluid draining from ventriculostomy site. MRI brain currently pending. Subjective 06/28: Afebrile. Intubated yesterday secondary to altered mental status/ aspiration. Arousable and follows commands in the ventilator. 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 Echocardiogram pending. Possibly some right carotid stenosis on carotid ultrasound which does not correlate to this current acute left MCA CVA Objective Vital Signs Date Time Temp Pulse Resp B/P (MAP) Pulse Ox O2 Delivery O2 Flow Rate FiO2 06/28/17 13:17 100 40 06/28/17 06:00 86 06/28/17 04:00 98.2 14 102/57 (72) 06/27/17 19:00 Mechanical Ventilator 06/27/17 07:00 2.00 Intake and Output 06/28/17 06/28/17 06/29/17 08:00 16:00 00:00 Intake Total 392 ml Output Total 30 ml Balance 362 ml Result Diagram: 06/28/17 0420 06/28/17 0420 Other Results Microbiology Date/Time Source Procedure Growth Status 06/15/17 05:26 Blood Peripheral Aerobic Blood Culture - Final NO GROWTH IN 5 DAYS Complete 06/15/17 05:26 Blood Peripheral Anaerobic Blood Culture - Final NO GROWTH IN 5 DAYS Complete 06/27/17 11:20 Cerebral Spinal Fluid Shunt Fluid Gram Stain - Final Resulted 06/27/17 11:20 Cerebral Spinal Fluid Shunt Fluid CSF Culture - Preliminary NO GROWTH IN 24 HOURS. Resulted 06/18/17 05:40 Sputum Endotracheal Gram Stain - Final Complete 06/18/17 05:40 Sputum Culture - Final Staphylococcus Aureus Klebsiella Pneumoniae Complete Imaging Last Impressions Chest X-Ray 06/27/17 0000 Signed Impressions: Service Date/Time: Tuesday, June 27, 2017 10:51 - CONCLUSION: 1. Satisfactory position of recently placed endotracheal tube 2. Improved lung aeration with clearing basilar airspace disease. 3. Gaseous distention of the stomach. Rene Lomeli MD Carotid Artery Ultrasound 06/27/17 0000 Signed Impressions: Service Date/Time: Tuesday, June 27, 2017 12:59 - CONCLUSION: 1. Moderate diffuse atherosclerotic plaquing at both carotid bifurcations. 2. Mild elevated velocity in the proximal right internal carotid artery. If clinically indicated , recommend CTA of the carotid arteries for further evaluation. 3. No definite high grade or hemodynamically significant stenosis is demonstrated. David Moore MD Brain MRI 06/27/17 0000 Signed Impressions: Service Date/Time: Tuesday, June 27, 2017 09:23 - CONCLUSION: 1. New development of a nonhemorrhagic acute infarct involving the left occipital lobe. 2. Otherwise, the rest of the exam is stable compared to the prior MRI. David Moore MD Head CT 06/26/17 0000 Signed Impressions: Service Date/Time: Monday, June 26, 2017 10:08 - CONCLUSION: 1. Continued evolution of right cerebral hematoma with slightly increasing surrounding edema. 2. No new hemorrhage identified. 3. Continued ventricular dilatation with no further decompression following placement of ventriculostomy. 4. No significant shift of midline structures. Rene Lomeli MD Head Magnetic Resonance Angiography 06/15/17 0000 Signed Impressions: Service Date/Time: Thursday, June 15, 2017 11:52 - CONCLUSION: MRA within normal limits. There is a parenchymal hemorrhage in the posterior right temporal lobe with intraventricular extension. Ivan Bahena MD Objective Remarks General - 77-year-old female, orotracheally intubated HEENT - pupils are equal and reactive about 2.5-3 mm bilaterally, sclerae are anicteric, neck is supple, neck veins are not distended, + EVD right-sided bur hole, moist mucous membranes CV -RRR. S1, S2 no S 4. No murmurs, rubs or gallops Chest - clear to auscultation bilateral, no wheezes Abdomen - soft, nontender, not distended, BS present Extremities -warm, 1+ edema, + peripheral pulses Neuro -arousable on the ventilator and follows commands. Left gaze preference. , no facial asymmetry, squeezes fingers on both upper extremities but weak left side subjectively weaker than right strength 3 out of 5, wiggles toes to command Urinary Catheter: Yes A/P Assessment and Plan Neuro/Psych: Right posterior temporal/occipital/parietal intra-axial hematoma Left MCA posterior temporal occipital CVA Right complex partial seizure Wernicke aphasia Acute encephalopathy CT brain 06/25 revealed a right occipital parietal intra-axial hematoma with mild surrounding edema. Right ventriculostomy placed 06/27-currently 5 cm H2O. 73 cc clear yellow MRI brain revealed a left MCA CVA involving the left posterior temporal occipital region On levetiracetam 500 mg twice daily for seizure. Acetaminophen 650 mg p.o. every 6 hours as needed fever/pain through MRI brain admission revealed right posterior temporal hemorrhage with ventricular extension MRA brain negative for aneurysm Carotid Dopplers with possible right carotid stenosis. Does not explain acute left MCA CVA. ESR, CRP and hypercoagulable workup pending Followed by an neurology CV: Hypertensive emergency Dyslipidemia Currently on metoprolol 25 mg by mouth twice daily Currently on pravastatin 40 mg daily/on atorvastatin 40 mg daily at home Holding aspirin 81 mg daily in light of acute hemorrhage Resp: Acute respiratory failure secondary to aspiration [facility] 14/450/1./ Ventilator bundle Albuterol/ipratropium aerosols every 6 hours with albuterol aerosols every 2 hours as needed dyspnea Spontaneous breathing trials daily GI: Hypoalbuminemia Constipation Currently on pured honey thickened liquid diet per speech/nutrition's recommendations Famotidine 10 mg twice daily for GI prophylaxis Docusate sodium/senna 1 tablet twice daily for bowel regimen. Add polythene glycol 17 g twice daily, lactulose 30 cc 4 times daily : Box catheter if indicated for accurate I's and O's in a critically ill patient. Current with periwick Endo: Sliding scale insulin if indicated to maintain euglycemia Renal: Creatinine currently within normal limits Monitor urine output Accurate I's and O's Heme: Leukocytosis Monitor CBC daily. Follow trend ID: MSSA and and Klebsiella pneumonia Continue cefazolin 2 g IV every 8 hours day #6-7 Pertinent cultures 06/18 -staph aureus/Klebsiella pneumonia sputum FEN: Hyponatremia Replace electrolytes as clinically indicated MSK: Osteoarthritis/osteoporosis Holding alendronate 70 mg weekly. Resume clinically indicated Access -Utilize peripheral IV. Central line if indicated Prophylaxis -GI -famotidine -DVT -SCD/holding pharmacological prophylaxis in light of left right cerebral hematoma. Initiate when okay with neurosurgery Critical Care: The total critical care time was 35 minutes. Time to perform other separately billable procedures was not included in the critical care time. Osman Babin MD Jun 28, 2017 13:48
[2017-06-28] MEDS: LACTULOSE SYRUP 20 GM/30 ML CUP PO SCH ×2 (16:53→22:56)
[2017-06-28] MEDS: ARTIFICIAL TEARS OPTH SOLN 15 ML BTL EACH EYE SCH (16:54)
[2017-06-28] MEDS ORDERED: MINERAL OIL EMULSION 55% PO ONE (17:00)
[2017-06-28] MEDS ORDERED: GLYCERIN ADULT 2 GM SUPP RECTAL ONE (17:00)
[2017-06-28] MEDS ORDERED: METHYLNALTREXONE BROMIDE 12 MG/0.6 ML VIAL SQ ONE (17:00)
--- NOTE | 2017-06-28 17:31 | HHI.NSPN ---
(Bell Mooney) Note Status Status: Progress Note (Bell Mooney) Interval History Interval History 77 year old female with large hemorrhage stroke with hydrocephalus, worsening mental status, patient became severely obtunded difficult to arouse, she underwent placement of ventriculostomy drain 06/15/1706/16: ventriculostomy draining well, intubated, opening eyes and moving right side spontaneously. 06/18: ventriculostomy draining well, remains intubated, opens eyes, tracks, moves right side, stable left paresis 06/19: ventriculostomy draining well, CSF still bloody, dark red. opens eyes and moves right side spontaneously 06/20: ventriculostomy draining well, still gross bloody CSF, intubated, but opens eyes and gave thumbs up to command 06/25: Awake, ventriculostomy draining, drain raised to 15 cm of water over the weekend with stable ICPs. 06/26: EVD raised to 20 cm H20 yesterday, ICPs remains stable overnight, however appears more lethargic today, minimally opens eyes but falls back asleep. 06/27: MRI Brain this morning with new acute nonhemorrhagic left occipital infarct. 06/28: left ventriculostomy draining well, intubated and sedated. (Bell Mooney) Labs, Micro, & Vital Signs Results Date Time Temp Pulse Resp B/P (MAP) Pulse Ox O2 Delivery O2 Flow Rate FiO2 06/28/17 17:20 100 40 06/28/17 13:17 100 40 06/28/17 08:07 100 40 06/28/17 07:00 100 Mechanical Ventilator 40 06/28/17 06:00 86 06/28/17 04:15 98 40 06/28/17 04:00 98.2 83 14 102/57 (72) 100 06/28/17 04:00 83 06/28/17 04:00 40 06/28/17 02:00 81 06/28/17 00:00 80 06/28/17 00:00 98.5 80 14 112/59 (76) 100 06/28/17 00:00 40 06/27/17 23:56 100 40 06/27/17 22:00 101 06/27/17 20:25 99 50 06/27/17 20:00 98.4 105 14 107/64 (78) 99 06/27/17 20:00 105 06/27/17 20:00 50 06/27/17 19:00 99 Mechanical Ventilator 50 06/27/17 18:00 114 Constitutional Vital Signs Date Time Temp Pulse Resp B/P (MAP) Pulse Ox O2 Delivery O2 Flow Rate FiO2 06/28/17 17:20 100 40 06/28/17 13:17 100 40 06/28/17 08:07 100 40 06/28/17 07:00 100 Mechanical Ventilator 40 06/28/17 06:00 86 06/28/17 04:15 98 40 06/28/17 04:00 98.2 83 14 102/57 (72) 100 06/28/17 04:00 83 06/28/17 04:00 40 06/28/17 02:00 81 06/28/17 00:00 80 06/28/17 00:00 98.5 80 14 112/59 (76) 100 06/28/17 00:00 40 06/27/17 23:56 100 40 06/27/17 22:00 101 06/27/17 20:25 99 50 06/27/17 20:00 98.4 105 14 107/64 (78) 99 06/27/17 20:00 105 06/27/17 20:00 50 06/27/17 19:00 99 Mechanical Ventilator 50 06/27/17 18:00 114 (Bell Mooney) Review of Systems ROS Limitations: Intubated (Bell Mooney) Physical Exam Ms. Patrick is intubated and sedated. Left ventriculostomy at 5 cm H20 draining dark red CSF. Cranial Nerves: Pupils equal, round Cervical Spine: soft, supple Motor: minimal response (Bell Mooney) Ms. Patrick is intubated and sedated. Left ventriculostomy at 5 cm H20 draining dark red CSF. Cranial Nerves: Pupils equal, round Cervical Spine: soft, supple Motor: minimal response to pain Heart. RRR lungts. Clear Skin warm and dry (Andre Nixon MD) Medications Current Medications Current Medications Medications (Trade) Dose Ordered Sig/Jose Guadalupe Route PRN Reason Start Time Stop Time Status Last Admin Dose Admin Sodium Chloride (NS Flush) 2 ml UNSCH PRN IV FLUSH FLUSH AFTER USING IV ACCESS 06/15/17 05:15 06/21/17 00:43 Acetaminophen (Tylenol) 650 mg Q6H PRN PO PAIN 1-10 AND/OR FEVER >101F 06/15/17 06:30 06/23/17 20:18 Ondansetron HCl (Zofran Inj) 4 mg Q6H PRN IV PUSH NAUSEA OR VOMITING 06/15/17 06:30 Miscellaneous Information 1 Q361D XX 06/15/17 06:30 06/15/17 06:30 Chlorhexidine Gluconate (Chlorhexidine 2% Cloth) Taper DAILY@04 TOP 06/16/17 04:00 06/12/18 03:59 06/20/17 04:00 Chlorhexidine Gluconate (Chlorhexidine 2% Cloth) 3 pack UNSCH PRN TOP HYGIENIC CARE 06/15/17 06:30 Senna/Docusate Sodium (Fallon-Colace) 1 tab BID PO 06/15/17 09:00 06/28/17 08:31 Magnesium Hydroxide (Milk Of Magnesia Liq) 30 ml Q12H PRN PO Mild constipation 06/15/17 06:30 06/22/17 20:58 Sennosides (Senokot) 17.2 mg Q12H PRN PO Moderate constipation 06/15/17 06:30 Bisacodyl (Dulcolax Supp) 10 mg DAILY PRN RECTAL SEVERE CONSITIPATION 06/15/17 06:30 Lactulose (Lactulose Liq) 30 ml DAILY PRN PO SEVERE CONSITIPATION 06/15/17 06:30 06/22/17 20:58 Chlorhexidine Gluconate (Peridex 0.12% Liq) 15 ml BID@08,20 MT 06/15/17 20:00 06/28/17 08:00 Levetriacetam (Keppra) 500 mg Q12HR PO 06/17/17 11:30 06/28/17 08:31 Pravastatin Sodium (Pravachol) 40 mg HS PO 06/18/17 21:00 06/27/17 21:34 Metoprolol Tartrate (Lopressor) 25 mg Q12HR PO 06/19/17 09:00 06/27/17 21:35 Hydralazine HCl (Apresoline Inj) 10 mg Q4H PRN IV PUSH SBP greater than 160 06/20/17 12:30 06/24/17 07:11 Cefazolin Sodium 2000 mg/Sodium Chloride 120 ml @ 240 mls/hr Q8H IV 06/24/17 23:00 06/28/17 06:17 Famotidine (Pepcid) 10 mg BID PO 06/25/17 21:00 06/28/17 08:31 Chlorhexidine Gluconate (Hibiclens 4% Top Soln) 1 applic HS TOP 06/26/17 21:00 06/28/17 21:01 06/27/17 05:56 Albuterol Sulfate (Albuterol Neb) 2.5 mg Q2HR NEB PRN NEB dyspnea 06/27/17 09:15 Labetalol HCl (Trandate Inj) 10 mg Q1HR PRN IV PUSH SBP>160, DBP>90, HR>65 06/27/17 09:15 Propofol 100 ml @ 2.073 mls/ hr TITRATE PRN IV SEDATION 06/27/17 11:00 06/28/17 13:58 Fentanyl Citrate 250 ml @ 5 mls/hr TITRATE PRN IV SEDATION 06/27/17 11:00 Artificial Tears (Tears Naturale Opth Soln) 1 drop Q8HR EACH EYE 06/28/17 17:00 06/28/17 16:54 Polyethylene Glycol (Miralax) 17 gm BID PO 06/28/17 21:00 Lactulose (Lactulose Liq) 30 ml QID PO 06/28/17 18:00 06/28/17 16:53 (Bell Mooney) Medical Decision Making MDM Remarks 77 y/o female with large hemorrhagic stroke, she had evidence of hydrocephalus, she underwent placement of ventriculostomy drain 06/15/17 due to worsening mental status with improvement of mental status pt did not tolerate clamping of ventriculostomy drain, ventriculostomy drain replaced 06/27/17, [employer] shunt held due to new right side stroke (Bell Mooney) Plan Plan Remarks cont ventriculostomy draining critical care management neuro checks (Bell Mooney) Attending Statement Neuro. Slight improvement after ventriculostomy. Continue draining CSF and monitoring ICP Pulmonary. Her pulmonary condition is deteriorating. She is not protecting her airway. Her condition requires endotracheal intubation and mechanical ventilation. Continue mechanical ventilation, aggressive pulmonary toilette, nasotracheal suction, and breathing treatments with nebulizers. Discussed extensively with neurologist, Dr Zabala and with Dr Babin. Daily PT and OT Renal. Continue to monitor closely urine output, BUN and creatinine Endocrine. Continue to Monitor serial Acu checks and SSI as needed in detail ID continue to monitor for signs of infection Continue Protonix for stress ulcer prophylaxis Continue Nickolas hose and SCD's for DVT prophylaxis Further recommendations will be provided depending on the patient's clinical evaluation and follow up studies. The exam, history, and the medical decision-making described in the above note were completed with the assistance of the mid-level provider. I reviewed and agree with the findings presented. I attest that I had a [id number] encounter with the patient on the same day, and personally performed and documented my assessment and findings in the medical record. (nAdre Nixon MD) Bell Mooney Jun 28, 2017 17:31 Andre Nixon MD Jul 04, 2017 14:25
[2017-06-28] MEDS: CHLORHEXIDINE GLUCONATE 4% SOLN 120 ML BTL TOP SCH (21:00)
[2017-06-28] MEDS: POLYETHYLENE GLYCOL 17 GM PKG PO SCH (22:56)
[2017-06-28] MEDS: PRAVASTATIN SOD 40 MG TAB PO SCH (22:57)
[2017-06-29] VITALS (18 sets, daily range): BP systolic 101–137; BP diastolic 57–68; PULSE 69–93; RESP 14–28; TEMP 98.4–99.2; O2SAT 98–100
[2017-06-29] MEDS: CHLORHEXIDINE GLUCONATE 2 % 1 PACK (2 CLOTHS) TOP SCH (04:00)
--- NOTE | 2017-06-29 05:19 | RADRPT ---
EXAM DATE/TIME: 06/29/2017 03:52 [facility] COMPARISON: CHEST SINGLE AP, June 27, 2017, 10:51. INDICATIONS : Respiratory failure. MEDICAL HISTORY : Hypercholesterolemia. Hypertension. Headache. Weakness. CVA. SURGICAL HISTORY : None. ENCOUNTER: Subsequent ACUITY: 2 weeks PAIN SCORE: Non-responsive. LOCATION: Bilateral chest FINDINGS: Trace left base atelectasis not significantly changed. No effusion seen. No pneumothorax. Heart size stable, upper limits of normal. Endotracheal tube tip is approximately 3 cm above the [place]. Nasogastric tube coiled in the stomach. CONCLUSION: No significant change. Trace left base atelectasis. Harsha Ayala MD on June 29, 2017 at 5:17 Board Certified Radiologist. This report was verified electronically.
[2017-06-29] MEDS: ARTIFICIAL TEARS OPTH SOLN 15 ML BTL EACH EYE SCH ×3 (05:28→21:05)
[2017-06-29] MEDS: CEFAZOLIN INJ 2,000 MG in SODIUM CHLORIDE 0.9% INJ 100 ML IV SCH ×3 (06:13→23:33)
[2017-06-29 06:59] LABS: AUTOMATED NEUTROPHIL # 11.8 TH/MM3 (1.8-7.7); BASOPHIL % 0.3 % (0.0-2.0); EOSINOPHIL % 0.1 % (0.0-4.0); HEMATOCRIT 30.4 % (35.0-46.0); HEMOGLOBIN 10.5 GM/DL (11.6-15.3); LYMPHOCYTE # 1.5 TH/MM3 (1.0-4.8); MEAN CELL VOLUME 88.8 FL (80.0-100.0); MEAN CORPUSCULAR HEMOGLOBIN 30.6 PG (27.0-34.0); MEAN CORPUSCULAR HGB CONC 34.4 % (32.0-36.0); MEAN PLATELET VOLUME 8.7 FL (7.0-11.0); MONOCYTE # 0.6 TH/MM3 (0-0.9); NEUT % 84.6 % (16.0-70.0); PLATELET COUNT 288 TH/MM3 (150-450); RED BLOOD COUNT 3.42 MIL/MM3 (4.00-5.30); RED CELL DISTRIBUTION WIDTH 13.3 % (11.6-17.2)
[2017-06-29 07:29] LABS: AST (GOT) 37 U/L (15-37); BICARBONATE 23.3 MEQ/L (21.0-32.0); BLOOD UREA NITROGEN 24 MG/DL (7-18); CALCIUM 8.4 MG/DL (8.5-10.1); CHLORIDE 105 MEQ/L (98-107); CREATININE 1.02 MG/DL (0.50-1.00); GLOMERULAR FILTRATION RATE 52 ML/MIN (>89); GLUCOSE,RANDOM 190 MG/DL (74-106); MAGNESIUM 1.9 MG/DL (1.5-2.5); SODIUM (NA) 139 MEQ/L (136-145)
[2017-06-29 07:35] LABS: ALKALINE PHOSPHATASE 137 U/L (45-117); ALT (GPT) 12 U/L (10-53); PHOSPHORUS 2.7 MG/DL (2.5-4.9); TOTAL BILIRUBIN ADULT 0.5 MG/DL (0.2-1.0); TOTAL PROTEIN 6.5 GM/DL (6.4-8.2)
[2017-06-29] MEDS: CHLORHEXIDINE 0.12% (ORAL KIT) 15 ML CUP MT SCH ×2 (07:42→21:04)
[2017-06-29] MEDS: LACTULOSE SYRUP 20 GM/30 ML CUP PO SCH ×4 (08:00→21:04)
[2017-06-29] MEDS: POLYETHYLENE GLYCOL 17 GM PKG PO SCH ×2 (08:00→21:04)
[2017-06-29] MEDS: DOCUSATE SODIUM 50 MG/SENNA 8.6 MG TAB PO SCH (08:00)
[2017-06-29] MEDS: METOPROLOL TARTRATE 25 MG TAB PO SCH ×2 (08:00→21:04)
[2017-06-29] MEDS: FAMOTIDINE 20 MG TAB PO SCH ×2 (08:00→21:04)
[2017-06-29] MEDS: levETIRAcetam 500 MG TAB PO SCH ×2 (08:00→21:04)
--- NOTE | 2017-06-29 08:58 | HHI.PR ---
Review/Management Diagnosis/Plan: (1) Acute ischemic left MCA stroke ICD Codes: I63.512 - Cerebral infarction due to unspecified occlusion or stenosis of left middle cerebral artery Status: Acute Plan: left posterior mca temp-occipital infarct carotid u/s rt carotid stenosis- doesn't explain infarct mra brain previous nml 06/17 lipids nml esr, crp, rigo, hyper coag labs-pending eeg- no sz activity recs f/u echo-pending ccm, nsx following challenging management decision with ICH and now Ischemic Infarct. consider antiplatelets when feasible (2) Intracranial hemorrhage ICD Codes: I62.9 - Nontraumatic intracranial hemorrhage, unspecified Status: Acute Plan: rt o-p ich large spontaneous, likely hypertensive mra brain-nml, s/p left vp production shunt 06/27 (3) Encephalopathy, metabolic ICD Codes: G93.41 - Metabolic encephalopathy Status: Acute Plan: due to ich (4) Hypertensive emergency ICD Codes: I16.1 - Hypertensive emergency Status: Acute Plan: improved on bp meds (5) [place] (acute kidney injury) ICD Codes: N17.9 - Acute kidney failure, unspecified Status: Acute Subjective Subjective Comments No acute events reported Active Medications Current Medications Medications (Trade) Dose Ordered Sig/Jose Guadalupe Route Start Time Stop Time Status Last Admin (NS Flush) 2 ml UNSCH PRN IV FLUSH 06/15/17 05:15 06/21/17 00:43 (Tylenol) 650 mg Q6H PRN PO 06/15/17 06:30 06/23/17 20:18 (Zofran Inj) 4 mg Q6H PRN IV PUSH 06/15/17 06:30 Miscellaneous Information 1 Q361D XX 06/15/17 06:30 06/15/17 06:30 (Chlorhexidine 2% Cloth) Taper DAILY@04 TOP 06/16/17 04:00 06/12/18 03:59 06/20/17 04:00 (Chlorhexidine 2% Cloth) 3 pack UNSCH PRN TOP 06/15/17 06:30 (Fallon-Colace) 1 tab BID PO 06/15/17 09:00 06/29/17 08:00 (Milk Of Magnesia Liq) 30 ml Q12H PRN PO 06/15/17 06:30 06/22/17 20:58 (Senokot) 17.2 mg Q12H PRN PO 06/15/17 06:30 (Dulcolax Supp) 10 mg DAILY PRN RECTAL 06/15/17 06:30 (Lactulose Liq) 30 ml DAILY PRN PO 06/15/17 06:30 06/22/17 20:58 (Peridex 0.12% Liq) 15 ml BID@08,20 MT 06/15/17 20:00 06/29/17 07:42 (Keppra) 500 mg Q12HR PO 06/17/17 11:30 06/29/17 08:00 (Pravachol) 40 mg HS PO 06/18/17 21:00 06/28/17 22:57 (Lopressor) 25 mg Q12HR PO 06/19/17 09:00 06/29/17 08:00 (Apresoline Inj) 10 mg Q4H PRN IV PUSH 06/20/17 12:30 06/24/17 07:11 Cefazolin Sodium 2000 mg/Sodium Chloride 120 ml @ 240 mls/hr Q8H IV 06/24/17 23:00 06/29/17 06:13 (Pepcid) 10 mg BID PO 06/25/17 21:00 06/29/17 08:00 (Albuterol Neb) 2.5 mg Q2HR NEB PRN NEB 06/27/17 09:15 (Trandate Inj) 10 mg Q1HR PRN IV PUSH 06/27/17 09:15 Propofol 100 ml @ 2.073 mls/ hr TITRATE PRN IV 06/27/17 11:00 06/28/17 13:58 Fentanyl Citrate 250 ml @ 5 mls/hr TITRATE PRN IV 06/27/17 11:00 (Tears Naturale Opth Soln) 1 drop Q8HR EACH EYE 06/28/17 17:00 06/29/17 05:28 (Miralax) 17 gm BID PO 06/28/17 21:00 06/29/17 08:00 (Lactulose Liq) 30 ml QID PO 06/28/17 18:00 06/29/17 08:00 Allergies Allergies Coded Allergies No Known Allergies (Unverified Adverse Reaction, Unknown, 06/15/17) Review of Systems All other ROS: Unable to obtain (not verbal at this time) Exam I&O / VS Vital Signs Date Time Temp Pulse Resp B/P (MAP) Pulse Ox O2 Delivery O2 Flow Rate FiO2 06/29/17 07:55 40 06/29/17 07:55 100 40 06/29/17 06:00 80 06/29/17 04:00 99.0 83 17 124/61 (82) 99 06/29/17 04:00 40 06/29/17 04:00 83 06/29/17 03:21 99 40 06/29/17 02:00 79 06/29/17 00:37 98 40 06/29/17 00:00 93 06/29/17 00:00 99.1 93 14 101/64 (76) 98 06/29/17 00:00 40 06/28/17 22:00 117 06/28/17 20:00 99.1 126 22 142/77 (98) 96 06/28/17 20:00 40 06/28/17 20:00 122 06/28/17 19:19 94 40 06/28/17 19:00 96 Mechanical Ventilator 40 06/28/17 18:00 113 06/28/17 17:20 100 40 06/28/17 16:00 40 06/28/17 16:00 106 06/28/17 16:00 98.1 106 14 111/63 (79) 99 06/28/17 14:00 103 06/28/17 13:17 100 40 06/28/17 12:00 98.2 103 14 114/70 (85) 100 06/28/17 12:00 103 06/28/17 12:00 40 06/28/17 10:00 95 Respiratory: Non-labored respirations, Symmetrical expansion Exam Comments intubated, more arousable but not maintaining wakefulness, not following, grimaces, ou 2-1.5mm, less spontaneous rt ue movement, flexion with left Objective Micro and Labs Laboratory Tests Test 06/28/17 09:04 06/28/17 13:36 06/28/17 17:00 06/29/17 06:06 C-Reactive Protein 15.50 Erythrocyte Sedimentation Rate GREATER THAN 140 Mix DRVV Patient/Normal 1:1 White Blood Count 14.0 Red Blood Count 3.42 Hemoglobin 10.5 Hematocrit 30.4 Mean Corpuscular Volume 88.8 Mean Corpuscular Hemoglobin 30.6 Mean Corpuscular Hemoglobin Concent 34.4 Red Cell Distribution Width 13.3 Platelet Count 288 Mean Platelet Volume 8.7 Neutrophils (%) (Auto) 84.6 Lymphocytes (%) (Auto) 11.0 Monocytes (%) (Auto) 4.0 Eosinophils (%) (Auto) 0.1 Basophils (%) (Auto) 0.3 Neutrophils # (Auto) 11.8 Lymphocytes # (Auto) 1.5 Monocytes # (Auto) 0.6 Eosinophils # (Auto) 0.0 Basophils # (Auto) 0.0 CBC Comment DIFF FINAL Differential Comment Blood Urea Nitrogen 24 Creatinine 1.02 Random Glucose 190 Total Protein 6.5 Albumin 2.0 Calcium Level 8.4 Phosphorus Level 2.7 Magnesium Level 1.9 Alkaline Phosphatase 137 Aspartate Amino Transf (AST/SGOT) 37 Alanine Aminotransferase (ALT/SGPT) 12 Total Bilirubin 0.5 Sodium Level 139 Potassium Level 3.5 Chloride Level 105 Carbon Dioxide Level 23.3 Anion Gap 11 Estimat Glomerular Filtration Rate 52 Date/Time Source Procedure Growth Status 06/15/17 05:26 Blood Peripheral Aerobic Blood Culture - Final NO GROWTH IN 5 DAYS Complete 06/15/17 05:26 Blood Peripheral Anaerobic Blood Culture - Final NO GROWTH IN 5 DAYS Complete 06/27/17 11:20 Cerebral Spinal Fluid Shunt Fluid Gram Stain - Final Resulted 06/27/17 11:20 Cerebral Spinal Fluid Shunt Fluid CSF Culture - Preliminary NO GROWTH IN 48 HOURS. Resulted 06/18/17 05:40 Sputum Endotracheal Gram Stain - Final Complete 06/18/17 05:40 Sputum Culture - Final Staphylococcus Aureus Klebsiella Pneumoniae Complete Jose Cruz Crowell MD Jun 29, 2017 08:58
--- NOTE | 2017-06-29 13:38 | ECHRPT ---
Indication: cva/tia CONCLUSIONS Normal left ventricular size. Mild concentric left ventricular hypertrophy. The left ventricular systolic function is hyperdynamic with an estimated ejection fraction in the ra nge of 65- 70%. Mitral annular calcification is present. There is trace tricuspid valve regurgitation. The estimated pulmonary arterial pressure is 43 mmHg. BP: / HR: Rhythm: MEASUREMENTS (Male / Female) Normal Values Technical Quality:Technically difficult study 2D ECHO LV Diastolic Diameter PLAX 3.5 cm 4.2 - 5.9 / 3.9 - 5.3 cm IVS Diastolic Thickness 0.9 cm 0.6 - 1.0 / 0.6 - 0.9 cm LVPW Diastolic Thickness 0.6 cm 0.6 - 1.0 / 0.6 - 0.9 cm LV Relative Wall Thickness 0.4 RV Internal Dim ED PLAX 1.8 cm LA Systolic Diameter LX 3.1 cm 3.0 - 4.0 / 2.7 - 3.8 cm DOPPLER Mitral E Point Velocity 75.3 cm/s Mitral A Point Velocity 123.0 cm/s Mitral E to A Ratio 0.6 TR Peak Velocity 289.0 cm/s TR Peak Gradient 33.4 mmHg Right Atrial Pressure 10.0 mmHg Pulmonary Artery Systolic Pressu 43.4 mmHg Right Ventricular Systolic Press 43.4 mmHg FINDINGS LEFT VENTRICLE Normal left ventricular size. Mild concentric left ventricular hypertrophy. The left ventricular systolic function is hyperdynamic with an estimated ejection fraction in the ra nge of 65- 70%. RIGHT VENTRICLE Normal right ventricular size and systolic function. LEFT ATRIUM The left atrial size is normal. RIGHT ATRIUM The right atrial size is normal. ATRIAL SEPTUM Normal atrial septal thickness without atrial level shunting by limited color doppler interrogation. AORTA The aortic root and proximal ascending aorta are normal in size on limited imaging. MITRAL VALVE Mitral annular calcification is present. AORTIC VALVE Trileaflet aortic valve. No aortic valve stenosis or regurgitation. TRICUSPID VALVE There is trace tricuspid valve regurgitation. The estimated pulmonary arterial pressure is 43 mmHg. PULMONARY VALVE No pulmonary valve regurgitation or stenosis. VESSELS The inferior vena cava is normal in size. PERICARDIUM No pericardial effusion. Matt Ferrari MD, FACC (Electronically Signed) Final Date:29 June 2017 13:37
--- NOTE | 2017-06-29 15:11 | HHI.CCPN ---
Subjective Remarks/Hospital Course Severely dehydrated, elderly woman presents confused to [facility] ED with hypertensive urgency and semi-acute right hemispheric parenchymal brain hemorrhage. Arrived from [facility] on cardene gtt and aphasic. Handness not determined yet. Unable to get ROS. No anticoagulants. INR normal. 06/16: Flaccid left side. Minimal eye opening. Moves right arm and leg to stimulation. Breathes over vent. ICP control, EVD draining well. 06/17: Moving both arms, right much stronger. More alert but episodic apnea spells. 06/18: No events over the night. Patient remains intubated, off sedation. She is currently on pressure support, 01/04, doing well. Awake, following commands. Son present at bedside. T-max of 99.6. I/O 250/1545. 06/19: No events over the night. Patient did well yesterday on pressure support , but was not able to be extubated secondary to no cuff leak. She remains on Cardene currently at 9.5 mg/h. Afebrile with a T-max of 99.4. Negative fluid balance. 06/20: Patient did well over the night. T-max of 100.2. ICP of 4. Thick sputum secretions sent yesterday for culture now growing Staphylococcus. Patient is awake, off sedation following some commands. Off Cardene drip since yesterday. 06/21: Patient did well postextubation and over the night. T-max of 100 yesterday morning. Very good urine output. Patient awake following commands, denying any pain. 06/22: No events over the night. Patient doing well. She is awake and alert, denies headache, nausea, vomiting. No chest pain, no dyspnea, no palpitations. On 2 L nasal cannula. Afebrile over the last 24 hours. Diuresed well post Lasix and she is on negative fluid balance since admission. 06/23: Patient awake, feels better, denies chest pain, shortness of breath, palpitations, headache. Still has productive cough. Afebrile, urine output is adequate. 06/24: No events over the night. Patient afebrile over the last 24 hours. She remains awake, resting in bed, denies any complaints. Sons at bedside. 06/25: Resting comfortably. Drowsy, arousable. EVD at 15cm, drained 60 cc overnight. 06/26: Resting comfortably. Awake and alert. EVD in place drain 10 cc overnight however has some clear fluid draining around ventriculostomy site. Dr. Nixon planning [employer] shunt for tomorrow. 06/27: Afebrile. Less arousable today. Eyes are closed. Subjective left-sided weakness. EVD in place at 20 cm. 4 cc overnight. On cefazolin with clear fluid draining from ventriculostomy site. MRI brain currently pending. 06/28: Afebrile. Intubated yesterday secondary to altered mental status/ aspiration. Arousable and follows commands in the ventilator. 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 Echocardiogram pending. Possibly some right carotid stenosis on carotid ultrasound which does not correlate to this current acute left MCA CVA Subjective 06/29: Afebrile. More arousable today. Spontaneously moving left upper extremity. Opens eyes to voice. Not following commands. Tolerating tube feeds at goal. Objective Vital Signs Date Time Temp Pulse Resp B/P (MAP) Pulse Ox O2 Delivery O2 Flow Rate FiO2 06/29/17 12:00 40 06/29/17 12:00 98.8 79 16 110/57 (74) 06/29/17 11:38 100 06/28/17 19:00 Mechanical Ventilator 06/27/17 07:00 2.00 Intake and Output 06/29/17 06/29/17 06/30/17 08:00 16:00 00:00 Intake Total 730 ml Output Total 352 ml Balance 378 ml Result Diagram: 06/29/17 0606/29/17 06 Other Results Microbiology Date/Time Source Procedure Growth Status 06/15/17 05:26 Blood Peripheral Aerobic Blood Culture - Final NO GROWTH IN 5 DAYS Complete 06/15/17 05:26 Blood Peripheral Anaerobic Blood Culture - Final NO GROWTH IN 5 DAYS Complete 06/27/17 11:20 Cerebral Spinal Fluid Shunt Fluid Gram Stain - Final Resulted 06/27/17 11:20 Cerebral Spinal Fluid Shunt Fluid CSF Culture - Preliminary NO GROWTH IN 48 HOURS. Resulted 06/18/17 05:40 Sputum Endotracheal Gram Stain - Final Complete 06/18/17 05:40 Sputum Culture - Final Staphylococcus Aureus Klebsiella Pneumoniae Complete Imaging Last Impressions Chest X-Ray 3/30/18 0600 Signed Impressions: Service Date/Time: Thursday, June 29, 2017 03:52 - CONCLUSION: No significant change. Trace left base atelectasis. Harsha Ayala MD Carotid Artery Ultrasound 06/27/17 0000 Signed Impressions: Service Date/Time: Tuesday, June 27, 2017 12:59 - CONCLUSION: 1. Moderate diffuse atherosclerotic plaquing at both carotid bifurcations. 2. Mild elevated velocity in the proximal right internal carotid artery. If clinically indicated , recommend CTA of the carotid arteries for further evaluation. 3. No definite high grade or hemodynamically significant stenosis is demonstrated. David Moore MD Brain MRI 06/27/17 0000 Signed Impressions: Service Date/Time: Tuesday, June 27, 2017 09:23 - CONCLUSION: 1. New development of a nonhemorrhagic acute infarct involving the left occipital lobe. 2. Otherwise, the rest of the exam is stable compared to the prior MRI. David Moore MD Head CT 06/26/17 0000 Signed Impressions: Service Date/Time: Monday, June 26, 2017 10:08 - CONCLUSION: 1. Continued evolution of right cerebral hematoma with slightly increasing surrounding edema. 2. No new hemorrhage identified. 3. Continued ventricular dilatation with no further decompression following placement of ventriculostomy. 4. No significant shift of midline structures. Rene Lomeli MD Head Magnetic Resonance Angiography 06/15/17 0000 Signed Impressions: Service Date/Time: Thursday, June 15, 2017 11:52 - CONCLUSION: MRA within normal limits. There is a parenchymal hemorrhage in the posterior right temporal lobe with intraventricular extension. Ivan Bahena MD Objective Remarks General - 77-year-old female, orotracheally intubated HEENT - pupils are equal and reactive about 2.5-3 mm bilaterally, sclerae are anicteric, neck is supple, neck veins are not distended, + EVD right-sided bur hole, moist mucous membranes CV -RRR. S1, S2 no S 4. No murmurs, rubs or gallops Chest - clear to auscultation bilateral, no wheezes Abdomen - soft, nontender, not distended, BS present Extremities -warm, 1+ edema, + peripheral pulses Neuro -arousable on the ventilator and follows commands. Left gaze preference. , no facial asymmetry, squeezes fingers on both upper extremities but weak left side subjectively weaker than right strength 3 out of 5, wiggles toes to command Urinary Catheter: Yes Assessment to: Continue Box insert reason: Prolonged Immobilization Vascular Central Line Catheter: No Assessment to: Continue A/P Assessment and Plan Neuro/Psych: Right posterior temporal/occipital/parietal intra-axial hematoma Left MCA posterior temporal occipital CVA Right complex partial seizure Wernicke aphasia Acute encephalopathy CT brain 06/25 revealed a right occipital parietal intra-axial hematoma with mild surrounding edema. Right ventriculostomy placed 06/27-currently 5 cm H2O. 73 cc clear yellow MRI brain revealed a left MCA CVA involving the left posterior temporal occipital region On levetiracetam 500 mg twice daily for seizure. Acetaminophen 650 mg p.o. every 6 hours as needed fever/pain MRI brain admission revealed right posterior temporal hemorrhage with ventricular extension MRA brain negative for aneurysm Carotid Dopplers with possible right carotid stenosis. Does not explain acute left MCA CVA. ESR, CRP and hypercoagulable workup pending Followed by an neurology CV: Hypertensive emergency Dyslipidemia Currently on metoprolol 25 mg by mouth twice daily Currently on pravastatin 40 mg daily/on atorvastatin 40 mg daily at home Holding aspirin 81 mg daily in light of acute hemorrhage 06/29 echo - Normal left ventricular size. Mild concentric left ventricular hypertrophy. The left ventricular systolic function is hyperdynamic with an estimated ejection fraction in the range of 65-70%. Mitral annular calcification is present. There is trace tricuspid valve regurgitation. The estimated pulmonary arterial pressure is 43 mmHg. Resp: Acute respiratory failure secondary to aspiration [facility] 14/450/1.2/ Ventilator bundle Albuterol/ipratropium aerosols every 6 hours with albuterol aerosols every 2 hours as needed dyspnea Spontaneous breathing trials daily GI: Hypoalbuminemia Constipation Currently on pured honey thickened liquid diet per speech/nutrition's recommendations Famotidine 10 mg twice daily for GI prophylaxis Docusate sodium/senna 1 tablet twice daily for bowel regimen. Add polyethylene glycol 17 g twice daily, lactulose 30 cc 4 times daily : Box catheter if indicated for accurate I's and O's in a critically ill patient. Endo: Sliding scale insulin if indicated to maintain euglycemia Renal: Creatinine currently within normal limits Monitor urine output Accurate I's and O's Heme: Leukocytosis Monitor CBC daily. Follow trend ID: MSSA and and Klebsiella pneumonia Continue cefazolin 2 g IV every 8 hours day #6-7 Pertinent cultures 06/18 -staph aureus/Klebsiella pneumonia sputum FEN: Hyponatremia Replace electrolytes as clinically indicated MSK: Osteoarthritis/osteoporosis Holding alendronate 70 mg weekly. Resume clinically indicated Access -Utilize peripheral IV. Central line if indicated Prophylaxis -GI -famotidine -DVT -SCD/holding pharmacological prophylaxis in light of left right cerebral hematoma. Initiate when okay with neurosurgery Critical Care: The total critical care time was 35 minutes. Time to perform other separately billable procedures was not included in the critical care time. Discussed with 2 sons at bedside. Alternate CODE STATUS. Intubation only. Osman Babin MD Jun 29, 2017 15:11
[2017-06-29] MEDS ORDERED: METHYLNALTREXONE BROMIDE 12 MG/0.6 ML VIAL SQ ONE (15:15)
[2017-06-29] MEDS ORDERED: MINERAL OIL EMULSION 55% PO ONE (15:15)
[2017-06-29] MEDS ORDERED: GLYCERIN ADULT 2 GM SUPP RECTAL ONE (15:15)
--- NOTE | 2017-06-29 15:50 | HHI.NSPN ---
Note Status Status: Progress Note Interval History Interval History 77 year old female with large hemorrhage stroke with hydrocephalus, worsening mental status, patient became severely obtunded difficult to arouse, she underwent placement of ventriculostomy drain 06/15/1706/16: ventriculostomy draining well, intubated, opening eyes and moving right side spontaneously. 06/17. Neurologically stable. open eyes. Stable left hemiparesis 06/29. remains intubated and sedated. Does not follow commands Labs, Micro, & Vital Signs Results Date Time Temp Pulse Resp B/P (MAP) Pulse Ox O2 Delivery O2 Flow Rate FiO2 06/29/17 12:00 40 06/29/17 12:00 98.8 79 16 110/57 (74) 06/29/17 12:00 73 06/29/17 11:38 100 40 06/29/17 10:00 69 06/29/17 08:00 82 06/29/17 08:00 40 06/29/17 08:00 98.6 82 14 122/65 (84) 06/29/17 07:55 40 06/29/17 07:55 100 40 06/29/17 07:00 97 40 06/29/17 06:00 80 06/29/17 04:00 99.0 83 17 124/61 (82) 99 06/29/17 04:00 40 06/29/17 04:00 83 06/29/17 03:21 99 40 06/29/17 02:00 79 06/29/17 00:37 98 40 06/29/17 00:00 93 06/29/17 00:00 99.1 93 14 101/64 (76) 98 06/29/17 00:00 40 06/28/17 22:00 117 06/28/17 20:00 99.1 126 22 142/77 (98) 96 06/28/17 20:00 40 06/28/17 20:00 122 06/28/17 19:19 94 40 06/28/17 19:00 96 Mechanical Ventilator 40 06/28/17 18:00 113 06/28/17 17:20 100 40 06/28/17 16:00 40 06/28/17 16:00 106 06/28/17 16:00 98.1 106 14 111/63 (79) 99 Constitutional Vital Signs Date Time Temp Pulse Resp B/P (MAP) Pulse Ox O2 Delivery O2 Flow Rate FiO2 06/29/17 12:00 40 06/29/17 12:00 98.8 79 16 110/57 (74) 06/29/17 12:00 73 06/29/17 11:38 100 40 06/29/17 10:00 69 06/29/17 08:00 82 06/29/17 08:00 40 06/29/17 08:00 98.6 82 14 122/65 (84) 06/29/17 07:55 40 06/29/17 07:55 100 40 06/29/17 07:00 97 40 06/29/17 06:00 80 06/29/17 04:00 99.0 83 17 124/61 (82) 99 06/29/17 04:00 40 06/29/17 04:00 83 06/29/17 03:21 99 40 06/29/17 02:00 79 06/29/17 00:37 98 40 06/29/17 00:00 93 06/29/17 00:00 99.1 93 14 101/64 (76) 98 06/29/17 00:00 40 06/28/17 22:00 117 06/28/17 20:00 99.1 126 22 142/77 (98) 96 06/28/17 20:00 40 06/28/17 20:00 122 06/28/17 19:19 94 40 06/28/17 19:00 96 Mechanical Ventilator 40 06/28/17 18:00 113 06/28/17 17:20 100 40 06/28/17 16:00 40 06/28/17 16:00 106 06/28/17 16:00 98.1 106 14 111/63 (79) 99 Physical Exam Ms. Patrick is intubated and sedated. Left ventriculostomy at 5 cm H20 draining dark red CSF. Cranial Nerves: Pupils equal, round Cervical Spine: soft, supple Motor: minimal response Sensory. responds tyo pain localizing Cerebellar exam is not possibl;e due to her neurological condition Lungs. Bilateral rhonchi Heart regular rhythm and rate Skin warm and dry Medications Current Medications Current Medications Sodium Chloride (NS Flush) 2 ml UNSCH PRN IV FLUSH FLUSH AFTER USING IV ACCESS Last administered on 06/21/17at 00:43; Start 06/15/17 at 05:15 Sodium Chloride 500 ml @ 500 mls/hr BOLUS ONCE IV ; Start 06/15/17 at 06:00; Stop 06/15/17 at 06:59; Status DC Nicardipine HCl 25 mg/Sodium Chloride 250 ml @ 50 mls/hr TITRATE PRN IV Blood pressure management Last administered on 06/19/17at 06:43; Start 06/15/17 at 06: 15; Stop 06/23/17 at 17:33; Status DC Pravastatin Sodium (Pravachol) 80 mg HS PO Last administered on 06/17/17at 23:23 ; Start 06/15/17 at 21:00; Stop 06/18/17 at 09:30; Status DC Levetriacetam 100 ml @ 400 mls/hr BOLUS ONCE IV Last administered on at 09:43; Start 06/15/17 at 06:30; Stop 06/15/17 at 06:44; Status DC Sodium Chloride 1,000 ml @ 100 mls/hr Q10H IV Last administered on 06/17/17at 07:29; Start 06/15/17 at 06:17; Stop 06/17/17 at 12:42; Status DC Acetaminophen (Tylenol) 650 mg Q6H PRN PO PAIN 1-10 AND/OR FEVER >101F Last administered on 06/23/17at 20:18; Start 06/15/17 at 06:30 Morphine Sulfate (Morphine Inj) 2 mg Q2H PRN IV PUSH PAIN SCALE 6 TO 10 Last administered on 06/19/17at 08:29; Start 06/15/17 at 06:30; Stop 06/20/17 at 08:25 ; Status DC Famotidine (Pepcid Inj) 10 mg Q12HR IV PUSH Last administered on 06/25/17at 08: 45; Start 06/15/17 at 09:00; Stop 06/25/17 at 16:28; Status DC Ondansetron HCl (Zofran Inj) 4 mg Q6H PRN IV PUSH NAUSEA OR VOMITING; Start at 06:30 Albuterol/ Ipratropium (Duoneb Neb) 1 ampule Q4HR NEB PRN INH WHEEZING; Start 06/15/17 at 06:30; Stop 06/27/17 at 09:15; Status DC Miscellaneous Information 1 [id number] XX Last administered on 06/15/17at 06:30; Start 06/15/17 at 06:30 Chlorhexidine Gluconate (Chlorhexidine 2% Cloth) Taper DAILY@04 TOP Last administered on 06/20/17at 04:00; Start 06/16/17 at 04:00; Stop 06/12/18 at 03:59 Chlorhexidine Gluconate (Chlorhexidine 2% Cloth) 3 pack UNSCH PRN TOP HYGIENIC CARE; Start 06/15/17 at 06:30 Senna/Docusate Sodium ([place]-Colace) 1 tab BID PO Last administered on at 08:00; Start 06/15/17 at 09:00; Stop 06/29/17 at 15:16; Status DC Magnesium Hydroxide (Milk Of Magnesia Liq) 30 ml Q12H PRN PO Mild constipation Last administered on 06/22/17at 20:58; Start 06/15/17 at 06:30 Sennosides (Senokot) 17.2 mg Q12H PRN PO Moderate constipation; Start 06/15/17 at 06:30 Bisacodyl (Dulcolax Supp) 10 mg DAILY PRN RECTAL SEVERE CONSITIPATION; Start at 06:30 Lactulose (Lactulose Liq) 30 ml DAILY PRN PO SEVERE CONSITIPATION Last administered on 06/22/17at 20:58; Start 06/15/17 at 06:30 Rocuronium [place] (Zemuron Inj) 100 mg BOLUS ONCE IV Last administered on at 14:34; Start 06/15/17 at 14:00; Stop 06/15/17 at 14:01; Status DC Midazolam HCl (Versed Inj) 5 mg ONCE ONCE IV PUSH Last administered on at 14:35; Start 06/15/17 at 14:00; Stop 06/15/17 at 14:01; Status DC Chlorhexidine Gluconate (Peridex 0.12% Liq) 15 ml BID@08,20 MT Last administered on 06/29/17at 07:42; Start 06/15/17 at 20:00 Propofol 100 ml @ 0 mls/hr TITRATE PRN IV SEDATION; Start 06/15/17 at 14:00; Status UNV Midazolam HCl (Versed Inj) 5 mg STK-MED ONCE .ROUTE ; Start 06/15/17 at 14:07; Stop 06/15/17 at 14:08; Status DC Rocuronium [place] (Zemuron Inj) 50 mg STK-MED ONCE .ROUTE ; Start 06/15/17 at 14:07; Stop 06/15/17 at 14:08; Status DC Propofol 100 ml @ 1.941 mls/ hr TITRATE PRN IV SEDATION Last administered on at 14:41; Start 06/15/17 at 14:45; Stop 06/21/17 at 14:09; Status DC Miscellaneous Information (RASS Change Order) 1 ea ONCE ONCE XX Last administered on 06/15/17at 14:45; Start 06/15/17 at 14:45; Stop 06/15/17 at 14:46 ; Status DC Norepinephrine Bitartrate 4 mg/ Sodium Chloride 250 ml @ 7.5 mls/hr TITRATE PRN IV Maintain MAP > 70 mmHg; Start 06/15/17 at 19:45; Stop 06/15/17 at 21:37; Status DC Norepinephrine Bitartrate 4 mg/ Sodium Chloride 250 ml @ 7.5 mls/hr TITRATE PRN IV Maintain MAP > 70 mmHg Last administered on 06/15/17at 19:00; Start at 21:45; Stop 06/20/17 at 08:11; Status DC Levetriacetam (Keppra) 500 mg Q12HR PO Last administered on 06/29/17at 08:00; Start 06/17/17 at 11:30 Potassium Chloride 20 meq/ Lactated Ringer's 1,010 ml @ 42 mls/hr Q24H IV ; Start 06/17/17 at 12:45; Stop 06/17/17 at 13:02; Status DC Potassium Chloride 10 meq/ Lactated Ringer's 505 ml @ 42 mls/hr Q12H2M IV Last administered on 06/19/17at 22:32; Start 06/17/17 at 13:15; Stop 06/20/17 at 08:13; Status DC Pravastatin Sodium (Pravachol) 40 mg HS PO Last administered on 06/28/17at 22:57 ; Start 06/18/17 at 21:00 Potassium Phosphate 15 mmol/ Sodium Chloride 155 ml @ 38.75 mls/ hr ONCE ONCE IV Last administered on 06/19/17at 08:50; Start 06/19/17 at 08:00; Stop at 11:59; Status DC Metoprolol Tartrate (Lopressor) 25 mg Q12HR PO Last administered on 06/29/17at 08:00; Start 06/19/17 at 09:00 Pharmacy Profile Note 0 ml @ 0 mls/hr UNSCH OTHER ; Start 06/20/17 at 08:15; Stop 06/21/17 at 14:09; Status DC Albuterol/ Ipratropium (Duoneb Neb) 1 ampule Q6HR NEB NEB Last administered on 06/24/17at 07:16; Start 06/20/17 at 10:00; Stop 06/24/17 at 09:59; Status DC Vancomycin HCl 1250 mg/Sodium Chloride 262.5 ml @ 262.5 mls/ hr ONCE ONCE IV Last administered on 06/20/17at 13:29; Start 06/20/17 at 12:00; Stop 06/20/17 at 12:59; Status DC Hydralazine HCl (Apresoline Inj) 10 mg Q4H PRN IV PUSH SBP greater than 160 Last administered on 06/24/17at 07:11; Start 06/20/17 at 12:30 Potassium Phosphate 15 mmol/ Sodium Chloride 155 ml @ 38.75 mls/ hr ONCE ONCE IV Last administered on 06/20/17at 17:05; Start 06/20/17 at 13:45; Stop at 17:44; Status DC Furosemide (Lasix Inj) 40 mg ONCE ONCE IV PUSH Last administered on 06/21/17at 08:53; Start 06/21/17 at 08:30; Stop 06/21/17 at 08:31; Status DC Cefazolin Sodium/ Dextrose 50 ml @ 100 mls/hr Q8H IV Last administered on 06/24at 15:02; Start 06/21/17 at 15:00; Stop 06/24/17 at 21:47; Status DC Cefazolin Sodium 2000 mg/Sodium Chloride 120 ml @ 240 mls/hr Q8H IV Last administered on 06/29/17at 06:13; Start 06/24/17 at 23:00 Famotidine (Pepcid) 10 mg BID PO Last administered on 06/29/17at 08:00; Start at 21:00 Chlorhexidine Gluconate (Hibiclens 4% Top Soln) 1 applic HS TOP Last administered on 06/27/17at 05:56; Start 06/26/17 at 21:00; Stop 06/28/17 at 21:01 ; Status DC Acetaminophen 100 ml @ As Directed STK-MED ONCE IV ; Start 06/27/17 at 07:04; Stop 06/27/17 at 07:05; Status DC Artificial Tears (Lacrilube Opht Oint) 3.5 applic STK-MED ONCE .ROUTE ; Start at 07:05; Stop 06/27/17 at 07:06; Status DC Lidocaine/ Epinephrine (Xylocaine-Epi 1%-1:100,000 Inj) 30 ml STK-MED ONCE .ROUTE ; Start 06/27/17 at 07:32; Stop 06/27/17 at 07:33; Status DC Thrombin (Thrombin Top Soln) 10,000 units STK-MED ONCE .ROUTE ; Start 06/27/17 at 07:32; Stop 06/27/17 at 07:33; Status DC Gelatin (Gelfoam 100 Top) 1 foam STK-MED ONCE .ROUTE ; Start 06/27/17 at 07:32; Stop 06/27/17 at 07:33; Status DC Bacitracin (Baciguent Oint) 15 applic STK-MED ONCE .ROUTE ; Start 06/27/17 at 07 :32; Stop 06/27/17 at 07:33; Status DC Gentamicin Sulfate (Gentamicin Inj) 240 mg STK-MED ONCE .ROUTE ; Start 06/27/17 at 07:33; Stop 06/27/17 at 07:34; Status DC Albuterol Sulfate (Albuterol Neb) 2.5 mg Q2HR NEB PRN NEB dyspnea; Start at 09:15 Labetalol HCl (Trandate Inj) 10 mg Q1HR PRN IV PUSH SBP>160, DBP>90, HR>65; Start 06/27/17 at 09:15 Polyethylene Glycol (Miralax) 17 gm ONCE ONCE PO ; Start 06/27/17 at 09:15; Stop 06/27/17 at 09:19; Status DC Polyethylene Glycol (Miralax) 17 gm DAILY PO Last administered on 06/28/17at 08: 31; Start 06/28/17 at 09:00; Stop 06/28/17 at 15:18; Status DC Glycerin (Glycerin Adult Supp) 2 gm ONCE ONCE RECTAL ; Start 06/27/17 at 09:15 ; Stop 06/27/17 at 09:20; Status DC Sodium Chloride (Sodium Chloride) 1 gm ONCE ONCE PO ; Start 06/27/17 at 09:45; Stop 06/27/17 at 10:35; Status DC Propofol (Diprivan 500 Mg/ 50 ml Inj) 100 mg ONCE ONCE IV Last administered on 06/27/17at 11:10; Start 06/27/17 at 11:00; Stop 06/27/17 at 11:01; Status DC Chlorhexidine Gluconate (Peridex 0.12% Liq) 15 ml BID@08,20 MT ; Start 06/27/17 at 20:00; Status Cancel Propofol 100 ml @ 2.073 mls/ hr TITRATE PRN IV SEDATION Last administered on at 13:58; Start 06/27/17 at 11:00 Fentanyl Citrate 250 ml @ 5 mls/hr TITRATE PRN IV SEDATION; Start 06/27/17 at 11:00 Lidocaine HCl (Xylocaine 2% Inj) 100 mg ONCE ONCE IV PUSH Last administered on 06/27/17at 13:34; Start 06/27/17 at 11:00; Stop 06/27/17 at 11:01; Status DC Etomidate (Amidate Inj) 40 mg ONCE ONCE IV PUSH Last administered on at 13:34; Start 06/27/17 at 11:00; Stop 06/27/17 at 11:01; Status DC Rocuronium [place] (Zemuron Inj) 100 mg BOLUS ONCE IV Last administered on at 13:35; Start 06/27/17 at 11:30; Stop 06/27/17 at 11:31; Status DC Lidocaine/ Epinephrine (Xylocaine-Epi 1%-1:100,000 Inj) 30 ml STK-MED ONCE .ROUTE ; Start 06/27/17 at 10:50; Stop 06/27/17 at 10:51; Status DC Rocuronium [place] (Zemuron Inj) 100 mg STK-MED ONCE .ROUTE ; Start 06/27/17 at 10:51; Stop 06/27/17 at 10:52; Status DC Artificial Tears (Tears Naturale Opth Soln) 1 drop Q8HR EACH EYE Last administered on 06/29/17at 14:00; Start 06/28/17 at 17:00 Polyethylene Glycol (Miralax) 17 gm BID PO Last administered on 06/29/17at 08:00 ; Start 06/28/17 at 21:00 Lactulose (Lactulose Liq) 30 ml QID PO Last administered on 06/29/17at 08:00; Start 06/28/17 at 18:00 Mineral Oil (Kondremul Liq) 30 ml ONCE ONCE PO Last administered on 06/28/17at 16:54; Start 06/28/17 at 17:00; Stop 06/28/17 at 17:01; Status DC Glycerin (Glycerin Adult Supp) 2 gm ONCE ONCE RECTAL Last administered on 06/28at 16:54; Start 06/28/17 at 17:00; Stop 06/28/17 at 17:01; Status DC Methylnaltrexone [place] (Relistor Inj) 12 mg ONCE ONCE SQ Last administered on 06/28/17at 17:20; Start 06/28/17 at 17:00; Stop 06/28/17 at 17:01; Status DC Metoclopramide HCl (Reglan Inj) 5 mg Q8HR IV PUSH ; Start 06/29/17 at 22:00 Methylnaltrexone [place] (Relistor Inj) 12 mg ONCE ONCE SQ ; Start 06/29/17 at 15:15; Stop 06/29/17 at 15:30; Status DC Docusate Sodium (Colace Liq) 100 mg Q12HR PO ; Start 06/29/17 at 21:00 Sennosides (Senna Liq) 8.8 mg BID PO ; Start 06/29/17 at 21:00 Mineral Oil (Kondremul Liq) 30 ml ONCE ONCE PO ; Start 06/29/17 at 15:15; Stop 06/29/17 at 15:30; Status DC Glycerin (Glycerin Adult Supp) 2 gm ONCE ONCE RECTAL Last administered on 06/29at 15:15; Start 06/29/17 at 15:15; Stop 06/29/17 at 15:30; Status DC Attending Statement Neuro. Continue neuro checks. Her condition has deteriorated Pulmonary. Continue mechanical ventilation, aggressive pulmonary toilette, nasotracheal suction, and breathing treatments with nebulizers. Discussed extensively with neurologist, Dr Zabala and with Dr Babin. Daily PT and OT Renal. Continue to monitor closely urine output, BUN and creatinine Endocrine. Continue to Monitor serial Acu checks and SSI as needed in detail ID continue to monitor for signs of infection Continue Protonix for stress ulcer prophylaxis Continue Nickolas hose and SCD's for DVT prophylaxis Further recommendations will be provided depending on the patient's clinical evaluation and follow up studies. Andre Nixon MD Jun 29, 2017 15:50
--- NOTE | 2017-06-29 16:00 | RADRPT ---
EXAM DATE/TIME: 06/29/2017 15:21 [facility] COMPARISON: No previous studies available for comparison. INDICATIONS : Evaluate for ileus. MEDICAL HISTORY : Hypercholesterolemia. Hypertension. Headache. Weakness. CVA. SURGICAL HISTORY : None. ENCOUNTER: Subsequent ACUITY: 1 day PAIN SCORE: Non-responsive. LOCATION: Abdomen. FINDINGS: Supine view of the abdomen was performed. The abdominal bowel gas pattern is unremarkable without si gnificant ileus. Nasogastric tube is coiled in the arms of the stomach. No abnormal masses, calcifica tions, or organomegaly is seen. The osseous structures are unremarkable. CONCLUSION: 1. No significant ileus 2. Satisfactory position of nasogastric tube. Rene Lomeli MD on June 29, 2017 at 15:57 Board Certified Radiologist. This report was verified electronically.
[2017-06-29 18:50] LABS: AMORPHOUS SEDIMENT, URINE RARE; BILIRUBIN, URINE NEG (NEG); BLOOD, URINE NEG (NEG); GLUCOSE,URINE NEG (NEG); HYALINE CAST, URINE 3 /lpf (RARE); KETONE, URINE NEG (NEG); MUCUS URINE FEW /lpf (OCC); NITRITE,URINE NEG (NEG); SQUAMOUS EPITHELIAL CELL URINE 1 /hpf (0-5); URINE COLOR YELLOW (YELLW/STRAW); URINE LEUKOCYTE ESTERASE TRACE (NEG)
[2017-06-29] MEDS: DOCUSATE SODIUM 100 MG/10 ML UDC PO SCH (21:04)
[2017-06-29] MEDS: PRAVASTATIN SOD 40 MG TAB PO SCH (21:04)
[2017-06-29] MEDS: METOCLOPRAMIDE HCL 10 MG/2 ML VIAL IV PUSH SCH (21:05)
[2017-06-29] MEDS: SENNOSIDES SYRUP 8.8 MG/5 ML CUP PO SCH (21:05)
[2017-06-30] VITALS (15 sets, daily range): BP systolic 103–176; BP diastolic 51–89; PULSE 62–83; RESP 13–24; TEMP 98.5–99.7; O2SAT 100
[2017-06-30] MEDS: CHLORHEXIDINE GLUCONATE 2 % 1 PACK (2 CLOTHS) TOP SCH (03:00)
[2017-06-30] MEDS: LABETALOL HCL 100 MG/20 ML VIAL IV PUSH PRN (05:37)
[2017-06-30] MEDS: ARTIFICIAL TEARS OPTH SOLN 15 ML BTL EACH EYE SCH ×2 (05:37→21:20)
[2017-06-30] MEDS: METOCLOPRAMIDE HCL 10 MG/2 ML VIAL IV PUSH SCH ×3 (05:38→21:01)
[2017-06-30 05:55] LABS: AUTOMATED NEUTROPHIL # 7.8 TH/MM3 (1.8-7.7); BASOPHIL # 0.1 TH/MM3 (0-0.2); BASOPHIL % 0.9 % (0.0-2.0); EOSINOPHIL % 0.3 % (0.0-4.0); HEMOGLOBIN 10.1 GM/DL (11.6-15.3); LYMPH % 16.6 % (9.0-44.0); LYMPHOCYTE # 1.8 TH/MM3 (1.0-4.8); MEAN CELL VOLUME 88.8 FL (80.0-100.0); MEAN CORPUSCULAR HEMOGLOBIN 30.8 PG (27.0-34.0); MEAN CORPUSCULAR HGB CONC 34.6 % (32.0-36.0); MEAN PLATELET VOLUME 8.8 FL (7.0-11.0); MONO % 8.2 % (0.0-8.0); MONOCYTE # 0.9 TH/MM3 (0-0.9); PLATELET COUNT 289 TH/MM3 (150-450); RED BLOOD COUNT 3.27 MIL/MM3 (4.00-5.30); RED CELL DISTRIBUTION WIDTH 13.2 % (11.6-17.2); WHITE BLOOD COUNT 10.6 TH/MM3 (4.0-11.0)
[2017-06-30] MEDS: CEFAZOLIN INJ 2,000 MG in SODIUM CHLORIDE 0.9% INJ 100 ML IV SCH (06:06)
[2017-06-30 06:13] LABS: ALBUMIN 2.1 GM/DL (3.4-5.0); AST (GOT) 57 U/L (15-37); BICARBONATE 25.3 MEQ/L (21.0-32.0); BLOOD UREA NITROGEN 21 MG/DL (7-18); CALCIUM 8.4 MG/DL (8.5-10.1); CHLORIDE 102 MEQ/L (98-107); CREATININE 0.93 MG/DL (0.50-1.00); GLOMERULAR FILTRATION RATE 58 ML/MIN (>89); GLUCOSE,RANDOM 170 MG/DL (74-106); MAGNESIUM 1.8 MG/DL (1.5-2.5); SODIUM (NA) 136 MEQ/L (136-145)
[2017-06-30 06:15] LABS: ALT (GPT) 15 U/L (10-53)
[2017-06-30 06:17] LABS: ALKALINE PHOSPHATASE 128 U/L (45-117); TOTAL BILIRUBIN ADULT 0.4 MG/DL (0.2-1.0); TOTAL PROTEIN 6.5 GM/DL (6.4-8.2)
[2017-06-30] MEDS: METOPROLOL TARTRATE 25 MG TAB PO SCH ×2 (10:27→21:00)
[2017-06-30] MEDS: levETIRAcetam 500 MG TAB PO SCH ×2 (10:27→21:00)
[2017-06-30] MEDS: DOCUSATE SODIUM 100 MG/10 ML UDC PO SCH ×2 (10:27→20:59)
[2017-06-30] MEDS: LACTULOSE SYRUP 20 GM/30 ML CUP PO SCH ×4 (10:27→21:21)
[2017-06-30] MEDS: SENNOSIDES SYRUP 8.8 MG/5 ML CUP PO SCH ×2 (10:27→21:00)
[2017-06-30] MEDS: FAMOTIDINE 20 MG TAB PO SCH ×2 (10:27→21:00)
[2017-06-30] MEDS: POLYETHYLENE GLYCOL 17 GM PKG PO SCH ×2 (10:28→21:00)
[2017-06-30] MEDS: CHLORHEXIDINE 0.12% (ORAL KIT) 15 ML CUP MT SCH ×2 (10:28→20:59)
--- NOTE | 2017-06-30 10:35 | HHI.CCPN ---
Subjective Remarks/Hospital Course Severely dehydrated, elderly woman presents confused to [facility] ED with hypertensive urgency and semi-acute right hemispheric parenchymal brain hemorrhage. Arrived from [facility] on cardene gtt and aphasic. Handness not determined yet. Unable to get ROS. No anticoagulants. INR normal. 06/16: Flaccid left side. Minimal eye opening. Moves right arm and leg to stimulation. Breathes over vent. ICP control, EVD draining well. 06/17: Moving both arms, right much stronger. More alert but episodic apnea spells. 06/18: No events over the night. Patient remains intubated, off sedation. She is currently on pressure support, 01/04, doing well. Awake, following commands. Son present at bedside. T-max of 99.6. I/O 250/1545. 06/19: No events over the night. Patient did well yesterday on pressure support , but was not able to be extubated secondary to no cuff leak. She remains on Cardene currently at 9.5 mg/h. Afebrile with a T-max of 99.4. Negative fluid balance. 06/20: Patient did well over the night. T-max of 100.2. ICP of 4. Thick sputum secretions sent yesterday for culture now growing Staphylococcus. Patient is awake, off sedation following some commands. Off Cardene drip since yesterday. 06/21: Patient did well postextubation and over the night. T-max of 100 yesterday morning. Very good urine output. Patient awake following commands, denying any pain. 06/22: No events over the night. Patient doing well. She is awake and alert, denies headache, nausea, vomiting. No chest pain, no dyspnea, no palpitations. On 2 L nasal cannula. Afebrile over the last 24 hours. Diuresed well post Lasix and she is on negative fluid balance since admission. 06/23: Patient awake, feels better, denies chest pain, shortness of breath, palpitations, headache. Still has productive cough. Afebrile, urine output is adequate. 06/24: No events over the night. Patient afebrile over the last 24 hours. She remains awake, resting in bed, denies any complaints. Sons at bedside. 06/25: Resting comfortably. Drowsy, arousable. EVD at 15cm, drained 60 cc overnight. 06/26: Resting comfortably. Awake and alert. EVD in place drain 10 cc overnight however has some clear fluid draining around ventriculostomy site. Dr. Nixon planning AMORTIZATION CLERK shunt for tomorrow. 06/27: Afebrile. Less arousable today. Eyes are closed. Subjective left-sided weakness. EVD in place at 20 cm. 4 cc overnight. On cefazolin with clear fluid draining from ventriculostomy site. MRI brain currently pending. 06/28: Afebrile. Intubated yesterday secondary to altered mental status/ aspiration. Arousable and follows commands in the ventilator. 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 Echocardiogram pending. Possibly some right carotid stenosis on carotid ultrasound which does not correlate to this current acute left MCA CVA 06/29: Afebrile. More arousable today. Spontaneously moving left upper extremity. Opens eyes to voice. Not following commands. Tolerating tube feeds at goal. Subjective 06/30: Resting in bed in no acute distress. More arousable today. Spontaneously moving left upper extremity. Opens eyes to voice. No bowel movement Objective Vital Signs Date Time Temp Pulse Resp B/P (MAP) Pulse Ox O2 Delivery O2 Flow Rate FiO2 06/30/17 08:19 40 06/30/17 08:19 100 06/30/17 08:00 98.5 79 14 103/51 (68) 06/30/17 07:00 Mechanical Ventilator 06/27/17 07:00 2.00 Intake and Output 06/30/17 06/30/17 06/30/17 07:59 15:59 23:59 Intake Total 734 ml Output Total 512 ml Balance 222 ml Result Diagram: 06/30/17 0410 06/30/17 0410 Other Results Microbiology Date/Time Source Procedure Growth Status 06/29/17 20:02 Blood Peripheral Aerobic Blood Culture Pending Received 06/29/17 20:02 Blood Peripheral Anaerobic Blood Culture Pending Received 06/27/17 11:20 Cerebral Spinal Fluid Shunt Fluid Gram Stain - Final Complete 06/27/17 11:20 Cerebral Spinal Fluid Shunt Fluid CSF Culture - Final NO GROWTH IN 72 HRS.--AEROBICALLY OR ... Complete 06/18/17 05:40 Sputum Endotracheal Gram Stain - Final Complete 06/18/17 05:40 Sputum Culture - Final Staphylococcus Aureus Klebsiella Pneumoniae Complete Imaging Last Impressions Chest X-Ray 06/29/17 0600 Signed Impressions: Service Date/Time: Thursday, June 29, 2017 03:52 - CONCLUSION: No significant change. Trace left base atelectasis. Harhsa Ayala MD Abdomen X-Ray 06/29/17 0000 Signed Impressions: Service Date/Time: Thursday, June 29, 2017 15:21 - CONCLUSION: 1. No significant ileus 2. Satisfactory position of nasogastric tube. Rene Lomeli MD Carotid Artery Ultrasound 06/27/17 0000 Signed Impressions: Service Date/Time: Tuesday, June 27, 2017 12:59 - CONCLUSION: 1. Moderate diffuse atherosclerotic plaquing at both carotid bifurcations. 2. Mild elevated velocity in the proximal right internal carotid artery. If clinically indicated , recommend CTA of the carotid arteries for further evaluation. 3. No definite high grade or hemodynamically significant stenosis is demonstrated. David Moore MD Brain MRI 06/27/17 0000 Signed Impressions: Service Date/Time: Tuesday, June 27, 2017 09:23 - CONCLUSION: 1. New development of a nonhemorrhagic acute infarct involving the left occipital lobe. 2. Otherwise, the rest of the exam is stable compared to the prior MRI. David Moore MD Head CT 06/26/17 0000 Signed Impressions: Service Date/Time: Monday, June 26, 2017 10:08 - CONCLUSION: 1. Continued evolution of right cerebral hematoma with slightly increasing surrounding edema. 2. No new hemorrhage identified. 3. Continued ventricular dilatation with no further decompression following placement of ventriculostomy. 4. No significant shift of midline structures. Rene Lomeli MD Head Magnetic Resonance Angiography 06/15/17 0000 Signed Impressions: Service Date/Time: Thursday, June 15, 2017 11:52 - CONCLUSION: MRA within normal limits. There is a parenchymal hemorrhage in the posterior right temporal lobe with intraventricular extension. Ivan Bahena MD Objective Remarks General - 77-year-old female, orotracheally intubated HEENT - pupils are equal and reactive about 2.5-3 mm bilaterally, sclerae are anicteric, neck is supple, neck veins are not distended, + EVD right-sided bur hole, moist mucous membranes CV -RRR. S1, S2 no S 4. No murmurs, rubs or gallops Chest - clear to auscultation bilateral, no wheezes Abdomen - soft, nontender, not distended, BS present Extremities -warm, 1+ edema, + peripheral pulses Neuro -arousable on the ventilator and follows commands. Left gaze preference. , no facial asymmetry, squeezes fingers on both upper extremities but weak left side subjectively weaker than right strength 3 out of 5, wiggles toes to command Urinary Catheter: Yes Assessment to: Continue Box insert reason: Prolonged Immobilization Vascular Central Line Catheter: Yes Assessment to: Continue A/P Assessment and Plan Neuro/Psych: Right posterior temporal/occipital/parietal intra-axial hematoma Left MCA posterior temporal occipital CVA Right complex partial seizure Wernicke aphasia Acute encephalopathy CT brain 06/25 revealed a right occipital parietal intra-axial hematoma with mild surrounding edema. Right ventriculostomy placed 06/27-currently 5 cm H2O. 229 cc blood tinged MRI brain revealed a left MCA CVA involving the left posterior temporal occipital region On levetiracetam 500 mg twice daily for seizure. Acetaminophen 650 mg p.o. every 6 hours as needed fever/pain through 10 MRI brain admission revealed right posterior temporal hemorrhage with ventricular extension MRA brain negative for aneurysm Carotid Dopplers with possible right carotid stenosis. Does not explain acute left MCA CVA. ESR, CRP and hypercoagulable workup pending Followed by Dr. Crowell neurology CV: Hypertensive emergency Dyslipidemia Currently on metoprolol 25 mg by mouth twice daily Currently on pravastatin 40 mg daily/on atorvastatin 40 mg daily at home Holding aspirin 81 mg daily in light of acute hemorrhage 06/29 echo - Normal left ventricular size. Mild concentric left ventricular hypertrophy. The left ventricular systolic function is hyperdynamic with an estimated ejection fraction in the range of 65-70%. Mitral annular calcification is present. There is trace tricuspid valve regurgitation. The estimated pulmonary arterial pressure is 43 mmHg. Resp: Acute respiratory failure secondary to aspiration PRVC 14/450/1./ Ventilator bundle Albuterol/ipratropium aerosols every 6 hours with albuterol aerosols every 2 hours as needed dyspnea Spontaneous breathing trials daily GI: Hypoalbuminemia Constipation Jevity 1.5 at 50 cc an hour at goal Famotidine 10 mg twice daily for GI prophylaxis Docusate sodium/senna 1 tablet twice daily for bowel regimen. Continue polyethylene glycol 17 g twice daily, lactulose 30 cc 4 times daily Enema today. Check KUB in a.m. KUB yesterday with nonspecific bowel gas pattern. : Box catheter if indicated for accurate I's and O's in a critically ill patient. Endo: Sliding scale insulin if indicated to maintain euglycemia Renal: Creatinine currently within normal limits Monitor urine output Accurate I's and O's Heme: Normocytic anemia Monitor CBC daily. Follow trend Hypercoagulable workup currently in process ID: MSSA and and Klebsiella pneumonia Continue cefazolin 2 g IV every 8 hours day #7 Switch to penicillin/tazobactam day #1 Pertinent cultures 06/18 -staph aureus/Klebsiella pneumonia sputum Recheck sputum today FEN: Hypophosphatemia Replace electrolytes as clinically indicated 30 mmol sodium-Phos and 2 g mag sulfate IV 1 now. Recheck in a.m. MSK: Osteoarthritis/osteoporosis Holding alendronate 70 mg weekly. Resume clinically indicated Access -Utilize peripheral IV. Central line if indicated Prophylaxis -GI -famotidine -DVT -SCD/holding pharmacological prophylaxis in light of left right cerebral hematoma. Initiate when okay with neurosurgery Level 2 follow-up Osman Babin MD Jun 30, 2017 10:35
[2017-06-30] MEDS ORDERED: MINERAL OIL ENEMA 118 ML BTL RECTAL ONE (10:45)
[2017-06-30] MEDS ORDERED: MINERAL OIL EMULSION 55% PO ONE (10:45)
[2017-06-30] MEDS: MAGNESIUM SULFATE 1 GM PREMIX 100 ML IV SCH ×2 (10:45→11:45)
[2017-06-30] MEDS ORDERED: MAGNESIUM CITRATE SOLN 300 ML BTL PO ONE (10:45)
[2017-06-30] MEDS: PIPERACIL-TAZO 4.5 GM PREMIX 100 ML IV SCH (11:00)
[2017-06-30] MEDS ORDERED: SODIUM PHOSPHATE INJ 30 MMOL in SODIUM CHLOR 0.9% 250 ML INJ 250 ML IV ONE (12:00)
--- NOTE | 2017-06-30 14:05 | HHI.NSPN ---
(Kevin Colunga) History Chief Complaint: Unable to obtain due to patient's clinical condition. (Kevin Colunga) Interval History 77 year old female with large hemorrhage stroke with hydrocephalus, worsening mental status, patient became severely obtunded difficult to arouse, she underwent placement of ventriculostomy drain 06/15/1706/16: ventriculostomy draining well, intubated, opening eyes and moving right side spontaneously. 06/17. Neurologically stable. open eyes. Stable left hemiparesis 06/29. remains intubated and sedated. Does not follow commands 06/30: The patient is lethargic when seen this afternoon. She remains intubated and mechanically ventilated. She is not sedated. She does not follow commands but does move the extremities to noxious stimulation. ICP is good. (Kevin Colunga) System Review Comments Unable to obtain due to patient's clinical condition. (Kevin Colunga) Exam Results 06/28/17 06/28/17 06/29/17 06/29/17 06/30/17 06/30/17 06:00 18:00 06:00 18:00 06:00 18:00 Intake Total 392 ml 253 ml 618 ml 1178 ml 734 ml Output Total 30 ml 338 ml 352 ml 467 ml 512 ml Balance 362 ml -85 ml 266 ml 711 ml 222 ml IV Total 192 ml 120 ml 680 ml 120 ml Tube Feeding 200 ml 233 ml 378 ml 498 ml 414 ml Tube Irrigant 20 ml 200 ml Other 120 ml Output Urine Total 325 ml 295 ml 325 ml 325 ml Stool Total 0 ml 0 ml 100 ml Drainage Total 30 ml 13 ml 57 ml 142 ml 87 ml # Bowel Movements 0 0 Vital Signs Date Time Temp Pulse Resp B/P (MAP) Pulse Ox O2 Delivery O2 Flow Rate FiO2 06/30/17 13:57 100 40 06/30/17 08:19 40 06/30/17 08:19 100 40 06/30/17 08:00 40 06/30/17 08:00 98.5 79 14 103/51 (68) 100 06/30/17 07:00 100 Mechanical Ventilator 40 06/30/17 06:00 77 06/30/17 04:00 40 06/30/17 04:00 98.9 83 17 176/72 (106) 100 06/30/17 04:00 83 06/30/17 02:00 76 06/30/17 00:00 40 06/30/17 00:00 99.7 79 21 151/77 (101) 100 06/30/17 00:00 79 06/29/17 23:50 100 40 06/29/17 22:00 70 06/29/17 20:00 99.2 82 14 126/68 (87) 100 06/29/17 20:00 40 06/29/17 20:00 82 06/29/17 19:00 100 Mechanical Ventilator 40 06/29/17 18:00 75 06/29/17 16:00 98.4 77 28 137/63 (87) 06/29/17 16:00 40 06/29/17 16:00 81 06/29/17 15:47 100 40 06/29/17 14:00 78 06/29/17 12:00 40 06/29/17 12:00 98.8 79 16 110/57 (74) 06/29/17 12:00 73 06/29/17 11:38 100 40 06/29/17 10:00 69 06/29/17 08:00 82 06/29/17 08:00 40 06/29/17 08:00 98.6 82 14 122/65 (84) 06/29/17 07:55 40 06/29/17 07:55 100 40 06/29/17 07:00 97 40 06/29/17 06:00 80 06/29/17 04:00 99.0 83 17 124/61 (82) 99 06/29/17 04:00 40 06/29/17 04:00 83 06/29/17 03:21 99 40 06/29/17 02:00 79 06/29/17 00:37 98 40 06/29/17 00:00 93 06/29/17 00:00 99.1 93 14 101/64 (76) 98 06/29/17 00:00 40 06/28/17 22:00 117 06/28/17 20:00 99.1 126 22 142/77 (98) 96 06/28/17 20:00 40 06/28/17 20:00 122 06/28/17 19:19 94 40 06/28/17 19:00 96 Mechanical Ventilator 40 06/28/17 18:00 113 06/28/17 17:20 100 40 06/28/17 16:00 40 06/28/17 16:00 106 06/28/17 16:00 98.1 106 14 111/63 (79) 99 06/28/17 14:00 103 06/28/17 13:17 100 40 06/28/17 12:00 98.2 103 14 114/70 (85) 100 06/28/17 12:00 103 06/28/17 12:00 40 06/28/17 10:00 95 06/28/17 08:07 100 40 06/28/17 08:00 88 06/28/17 08:00 98.0 88 14 108/58 (75) 100 06/28/17 08:00 40 06/28/17 07:00 100 Mechanical Ventilator 40 06/28/17 06:00 86 06/28/17 04:15 98 40 06/28/17 04:00 98.2 83 14 102/57 (72) 100 06/28/17 04:00 83 06/28/17 04:00 40 06/28/17 02:00 81 06/28/17 00:00 80 06/28/17 00:00 98.5 80 14 112/59 (76) 100 06/28/17 00:00 40 06/27/17 23:56 100 40 06/27/17 22:00 101 06/27/17 20:25 99 50 06/27/17 20:00 98.4 105 14 107/64 (78) 99 06/27/17 20:00 105 06/27/17 20:00 50 06/27/17 19:00 99 Mechanical Ventilator 50 06/27/17 18:00 114 06/27/17 16:00 114 06/27/17 16:00 70 06/27/17 16:00 98.3 114 16 118/68 (85) 100 06/27/17 15:44 100 50 (Kevin Colunga) Physical Examination GENERAL: Lethargic, intubated & mechanically ventilated, no sedation. No apparent distress. HEENT: Normocephalic. Left kan hole w/ventriculostomy catheter in place & right kan hole w/sutures, no evident drainage, erythema or streaking from sites. PERRLA 2 mm reactive. Orally trached. OGT. MUSCULOSKELETAL: Moves extremities to noxious stimulation. Spontaneously moves RUE. No evident clubbing or deformity. NEUROLOGICAL: Lethargic, no sedation. Opens eyes to noxious stimulation, readily falls back asleep. PERRLA 2 mm reactive. Nonverbal, intubated. Does not follow commands. Spontaneously moves RUE. Moves all extremities to varying degrees to local noxious stimulation. Ventriculostomy at 5 cm H2O w/blood-tinged CSF in the collection chamber. ICP between 6 and 7 mm Hg when seen. (Kevin Colunga) Lab, Micro, Other Results Recent Impressions Chest X-Ray 06/29/17 0600 Signed Impressions: Service Date/Time: Thursday, June 29, 2017 03:52 - CONCLUSION: No significant change. Trace left base atelectasis. Harsha Ayala MD Abdomen X-Ray 06/29/17 0000 Signed Impressions: Service Date/Time: Thursday, June 29, 2017 15:21 - CONCLUSION: 1. No significant ileus 2. Satisfactory position of nasogastric tube. Rene Lomeli MD Laboratory Tests Test 06/27/17 14:42 06/28/17 04:20 06/28/17 09:04 06/28/17 13:36 White Blood Count 10.6 TH/MM3 12.7 TH/MM3 Red Blood Count 3.99 MIL/MM3 3.95 MIL/MM3 Hemoglobin 12.0 GM/DL 12.0 GM/DL Hematocrit 35.1 % 34.7 % Mean Corpuscular Volume 88.1 FL 87.7 FL Mean Corpuscular Hemoglobin 30.0 PG 30.4 PG Mean Corpuscular Hemoglobin Concent 34.1 % 34.6 % Red Cell Distribution Width 13.1 % 13.1 % Platelet Count 285 TH/MM3 284 TH/MM3 Mean Platelet Volume 8.8 FL 8.9 FL Blood Urea Nitrogen 22 MG/DL 23 MG/DL Creatinine 0.70 MG/DL 0.82 MG/DL Random Glucose 101 MG/DL 102 MG/DL Calcium Level 8.6 MG/DL 8.4 MG/DL Sodium Level 136 MEQ/L 136 MEQ/L Potassium Level 4.2 MEQ/L 4.8 MEQ/L Chloride Level 101 MEQ/L 102 MEQ/L Carbon Dioxide Level 24.4 MEQ/L 24.8 MEQ/L Anion Gap 11 MEQ/L 9 MEQ/L Estimat Glomerular Filtration Rate 81 ML/MIN 67 ML/MIN Neutrophils (%) (Auto) 80.7 % Lymphocytes (%) (Auto) 13.0 % Monocytes (%) (Auto) 5.7 % Eosinophils (%) (Auto) 0.1 % Basophils (%) (Auto) 0.5 % Neutrophils # (Auto) 10.2 TH/MM3 Lymphocytes # (Auto) 1.7 TH/MM3 Monocytes # (Auto) 0.7 TH/MM3 Eosinophils # (Auto) 0.0 TH/MM3 Basophils # (Auto) 0.1 TH/MM3 CBC Comment DIFF FINAL Differential Comment Total Protein 6.6 GM/DL Albumin 2.1 GM/DL Phosphorus Level 3.0 MG/DL Magnesium Level 2.0 MG/DL Alkaline Phosphatase 126 U/L Aspartate Amino Transf (AST/SGOT) 41 U/L Alanine Aminotransferase (ALT/SGPT) 16 U/L Total Bilirubin 1.0 MG/DL C-Reactive Protein 15.50 MG/DL Erythrocyte Sedimentation Rate GREATER THAN 140 mm/hr Mix DRVV Patient/Normal 1:1 Test 06/28/17 17:00 06/29/17 06:06 06/29/17 18:30 06/30/17 04:10 White Blood Count 14.0 TH/MM3 10.6 TH/MM3 Red Blood Count 3.42 MIL/MM3 3.27 MIL/MM3 Hemoglobin 10.5 GM/DL 10.1 GM/DL Hematocrit 30.4 % 29.0 % Mean Corpuscular Volume 88.8 FL 88.8 FL Mean Corpuscular Hemoglobin 30.6 PG 30.8 PG Mean Corpuscular Hemoglobin Concent 34.4 % 34.6 % Red Cell Distribution Width 13.3 % 13.2 % Platelet Count 288 TH/MM3 289 TH/MM3 Mean Platelet Volume 8.7 FL 8.8 FL Neutrophils (%) (Auto) 84.6 % 74.0 % Lymphocytes (%) (Auto) 11.0 % 16.6 % Monocytes (%) (Auto) 4.0 % 8.2 % Eosinophils (%) (Auto) 0.1 % 0.3 % Basophils (%) (Auto) 0.3 % 0.9 % Neutrophils # (Auto) 11.8 TH/MM3 7.8 TH/MM3 Lymphocytes # (Auto) 1.5 TH/MM3 1.8 TH/MM3 Monocytes # (Auto) 0.6 TH/MM3 0.9 TH/MM3 Eosinophils # (Auto) 0.0 TH/MM3 0.0 TH/MM3 Basophils # (Auto) 0.0 TH/MM3 0.1 TH/MM3 CBC Comment DIFF FINAL DIFF FINAL Differential Comment Blood Urea Nitrogen 24 MG/DL 21 MG/DL Creatinine 1.02 MG/DL 0.93 MG/DL Random Glucose 190 MG/DL 170 MG/DL Total Protein 6.5 GM/DL 6.5 GM/DL Albumin 2.0 GM/DL 2.1 GM/DL Calcium Level 8.4 MG/DL 8.4 MG/DL Phosphorus Level 2.7 MG/DL 2.0 MG/DL Magnesium Level 1.9 MG/DL 1.8 MG/DL Alkaline Phosphatase 137 U/L 128 U/L Aspartate Amino Transf (AST/SGOT) 37 U/L 57 U/L Alanine Aminotransferase (ALT/SGPT) 12 U/L 15 U/L Total Bilirubin 0.5 MG/DL 0.4 MG/DL Sodium Level 139 MEQ/L 136 MEQ/L Potassium Level 3.5 MEQ/L 4.0 MEQ/L Chloride Level 105 MEQ/L 102 MEQ/L Carbon Dioxide Level 23.3 MEQ/L 25.3 MEQ/L Anion Gap 11 MEQ/L 9 MEQ/L Estimat Glomerular Filtration Rate 52 ML/MIN 58 ML/MIN Anti-Nuclear Antibody Screen NEG Urine Color YELLOW Urine Turbidity CLEAR Urine pH 6.0 Urine Specific [place] 1.025 Urine Protein TRACE mg/dL Urine Glucose (UA) NEG mg/dL Urine Ketones NEG mg/dL Urine Occult Blood NEG Urine Nitrite NEG Urine Bilirubin NEG Urine Urobilinogen 2.0 MG/DL Urine Leukocyte Esterase TRACE Urine RBC 2 /hpf Urine WBC 5 /hpf Urine Squamous Epithelial Cells 1 /hpf Urine Amorphous Sediment RARE Urine Hyaline Casts 3 /lpf Urine Mucus FEW /lpf Microscopic Urinalysis Comment CATH-CULT NOT IND (Kevin Colunga) Medical Decision Making Impression and Plan Impression: Haemorrhagic cerebrovascular accident with intraventricular haemorrhage and hydrocephalus Patient is lethargic and nonresponsive to voice. She does move all extremities to local noxious stimulation. ICP is good. T max 99.7 at midnight. Hypertensive this morning. Reviewed labs this morning. Slight drop in haemoglobin level. Improvement in eGFR. Increase in AST but improvement in alk phos. Left ventriculostomy output 229 mL the past 24 hrs as of shift change this morning. : Right frontal Kan hole with placement of a ventriculostomy catheter : Left frontal Kan hole with placement of a ventriculostomy catheter Plan: Primary & critical care management per Garage Door Installer. Neuro checks. Monitor ventriculostomy drainage. Stat CT brain for any decline in neuro status. Continue mechanical ventilation, aggressive pulmonary toilette, nasotracheal suction, and breathing treatments with nebulizers. Physical & Occupational Therapy eval & tx. Continue to monitor closely urine output, BUN and creatinine Continue to Monitor serial Acu checks and SSI as needed in detail Continue to monitor for signs of infection Continue Protonix for stress ulcer prophylaxis Continue Nickolas hose and SCD's for DVT prophylaxis (Kevin Colunga) Attending Statement The exam, history, and the medical decision-making described in the above note were completed with the assistance of the mid-level provider. I reviewed and agree with the findings presented. I attest that I had a [id number] encounter with the patient on the same day, and personally performed and documented my assessment and findings in the medical record. On my examination 06/30/17, external ventricular drain with blood-tinged CSF output. Slight eye opening to sternal rub. Grasps both hands moderate strength to command. Improving slowly following hemorrhagic CVA. Continue EVD Discussed with family Continue ventilator support (Gerardo Sadler MD) Kevin Colunga Jun 30, 2017 14:05 Gerardo Sadler MD Jun 30, 2017 20:45
[2017-06-30] MEDS: SODIUM CHLORIDE 0.9% FLUSH 10 ML FLUSH IV FLUSH PRN (20:58)
[2017-06-30] MEDS: PRAVASTATIN SOD 40 MG TAB PO SCH (21:00)
[2017-07-01] VITALS (19 sets, daily range): BP systolic 126–141; BP diastolic 62–78; PULSE 68–78; RESP 15–24; TEMP 98.4–99.8; O2SAT 97–100
[2017-07-01] MEDS: PIPERACIL-TAZO 4.5 GM PREMIX 100 ML IV SCH ×5 (01:20→22:39)
[2017-07-01] MEDS: CHLORHEXIDINE GLUCONATE 2 % 1 PACK (2 CLOTHS) TOP SCH (04:00)
--- NOTE | 2017-07-01 04:55 | RADRPT ---
EXAM DATE/TIME: 07/01/2017 04:15 [facility] COMPARISON: CHEST SINGLE AP, June 29, 2017, 3:52. INDICATIONS : Shortness of breath. MEDICAL HISTORY : Hypercholesterolemia. Hypertension. Headache. Weakness. CVA SURGICAL HISTORY : None. ENCOUNTER: Subsequent ACUITY: 2 weeks PAIN SCORE: Non-responsive. LOCATION: Bilateral chest FINDINGS: A single view of the chest demonstrates endotracheal tube in good position. NG enters stomach. Mild b asilar airspace disease. No significant effusion. No pneumothorax. CONCLUSION: 1. Support apparatus in good position. Mild basilar airspace disease. Findings similar to June 29. Ivan Bahena MD on July 01, 2017 at 4:53 Board Certified Radiologist. This report was verified electronically.
--- NOTE | 2017-07-01 04:56 | RADRPT ---
EXAM DATE/TIME: 07/01/2017 04:18 [facility] COMPARISON: ABDOMEN KUB ONLY, June 29, 2017, 15:21. INDICATIONS : Abdominal distention. MEDICAL HISTORY : Hypercholesterolemia. Hypertension. Headache. Weakness. CVA SURGICAL HISTORY : None. ENCOUNTER: Subsequent ACUITY: 2 weeks PAIN SCORE: Non-responsive. LOCATION: Bilateral abdomen FINDINGS: Supine view of the abdomen was performed. The abdominal bowel gas pattern is normal. There is a mild rotatory dextroscoliosis. CONCLUSION: 1. Nonspecific bowel gas pattern without evidence for obstruction or free air. Ivan Bahena MD on July 01, 2017 at 4:54 Board Certified Radiologist. This report was verified electronically.
[2017-07-01 05:20] LABS: HEMATOCRIT 26.2 % (35.0-46.0); HEMOGLOBIN 9.2 GM/DL (11.6-15.3); MEAN CELL VOLUME 89.2 FL (80.0-100.0); MEAN CORPUSCULAR HEMOGLOBIN 31.2 PG (27.0-34.0); MEAN PLATELET VOLUME 8.6 FL (7.0-11.0); PLATELET COUNT 250 TH/MM3 (150-450); RED BLOOD COUNT 2.94 MIL/MM3 (4.00-5.30); RED CELL DISTRIBUTION WIDTH 13.4 % (11.6-17.2); WHITE BLOOD COUNT 9.8 TH/MM3 (4.0-11.0)
[2017-07-01] MEDS: ARTIFICIAL TEARS OPTH SOLN 15 ML BTL EACH EYE SCH ×3 (05:38→22:00)
[2017-07-01] MEDS: METOCLOPRAMIDE HCL 10 MG/2 ML VIAL IV PUSH SCH ×3 (05:38→22:40)
[2017-07-01 05:49] LABS: BICARBONATE 27.9 MEQ/L (21.0-32.0); CALCIUM 8.1 MG/DL (8.5-10.1); CREATININE 0.78 MG/DL (0.50-1.00)
[2017-07-01 05:57] LABS: PHOSPHORUS 4.2 MG/DL (2.5-4.9)
[2017-07-01] MEDS: levETIRAcetam 500 MG TAB PO SCH ×2 (08:08→20:04)
[2017-07-01] MEDS: CHLORHEXIDINE 0.12% (ORAL KIT) 15 ML CUP MT SCH ×2 (08:08→19:57)
[2017-07-01] MEDS: FAMOTIDINE 20 MG TAB PO SCH ×2 (08:08→20:04)
[2017-07-01] MEDS: METOPROLOL TARTRATE 25 MG TAB PO SCH ×2 (08:08→20:04)
[2017-07-01] MEDS: DOCUSATE SODIUM 100 MG/10 ML UDC PO SCH ×2 (08:08→20:04)
[2017-07-01] MEDS: POLYETHYLENE GLYCOL 17 GM PKG PO SCH ×2 (08:08→20:04)
[2017-07-01] MEDS: LACTULOSE SYRUP 20 GM/30 ML CUP PO SCH ×2 (08:08→13:08)
[2017-07-01] MEDS: SENNOSIDES SYRUP 8.8 MG/5 ML CUP PO SCH ×2 (08:10→20:04)
[2017-07-01] MEDS: hydrALAZINE HCL 20 MG/ML VIAL IV PUSH PRN (11:34)
--- NOTE | 2017-07-01 14:11 | HHI.NSPN ---
History Chief Complaint: Unable to obtain due to patient's clinical condition. Interval History 77 year old female with large hemorrhage stroke with hydrocephalus, worsening mental status, patient became severely obtunded difficult to arouse, she underwent placement of ventriculostomy drain 06/15/1706/16: ventriculostomy draining well, intubated, opening eyes and moving right side spontaneously. 06/17. Neurologically stable. open eyes. Stable left hemiparesis 06/29. remains intubated and sedated. Does not follow commands 06/30: The patient is lethargic when seen this afternoon. She remains intubated and mechanically ventilated. She is not sedated. She does not follow commands but does move the extremities to noxious stimulation. ICP is good. 07/01: When seen the patient is lethargic. She is still intubated and mechanically ventilated without any sedation. She responds to noxious stimulation with eye opening and movement of the extremities but does not follow any commands. Her ICP remains good. System Review Comments Unable to obtain due to patient's clinical condition. Exam Results 06/29/17 06/29/17 06/30/17 06/30/17 07/01/17 07/01/17 06:00 18:00 06:00 18:00 06:00 18:00 Intake Total 618 ml 1178 ml 734 ml 800 ml 100 ml Output Total 352 ml 467 ml 512 ml 1355 ml Balance 266 ml 711 ml 222 ml -555 ml 100 ml IV Total 120 ml 680 ml 120 ml 200 ml 100 ml Tube Feeding 378 ml 498 ml 414 ml 600 ml Tube Irrigant 200 ml Other 120 ml Output Urine Total 295 ml 325 ml 325 ml 1125 ml Stool Total 0 ml 0 ml 100 ml 100 ml Drainage Total 57 ml 142 ml 87 ml 130 ml # Bowel Movements 0 Vital Signs Date Time Temp Pulse Resp B/P (MAP) Pulse Ox O2 Delivery O2 Flow Rate FiO2 07/01/17 12:33 99 40 07/01/17 12:00 71 07/01/17 12:00 40 07/01/17 12:00 99.3 71 21 130/66 (87) 99 07/01/17 10:00 68 4/1/18 08:20 40 07/01/17 08:14 40 07/01/17 08:14 98 40 07/01/17 08:00 40 07/01/17 08:00 75 07/01/17 08:00 99.8 75 19 130/62 (84) 100 07/01/17 07:00 100 Mechanical Ventilator 40 07/01/17 06:00 70 07/01/17 04:04 100 40 07/01/17 04:00 98.4 71 15 141/66 (91) 100 07/01/17 04:00 73 07/01/17 04:00 40 07/01/17 02:00 71 07/01/17 00:36 100 40 07/01/17 00:00 40 07/01/17 00:00 70 07/01/17 00:00 98.7 70 19 128/78 (95) 100 06/30/17 22:00 78 06/30/17 20:00 98.5 70 24 132/89 (103) 100 06/30/17 20:00 40 06/30/17 20:00 78 06/30/17 19:48 100 40 06/30/17 19:00 100 Mechanical Ventilator 40 06/30/17 18:00 74 06/30/17 16:00 99.1 70 16 104/59 (74) 100 06/30/17 16:00 40 06/30/17 16:00 70 06/30/17 14:00 66 06/30/17 13:57 100 40 06/30/17 12:00 99.3 62 13 115/63 (80) 100 06/30/17 12:00 40 06/30/17 12:00 62 06/30/17 10:00 77 06/30/17 08:19 40 06/30/17 08:19 100 40 06/30/17 08:00 40 06/30/17 08:00 79 06/30/17 08:00 98.5 79 14 103/51 (68) 100 06/30/17 07:00 100 Mechanical Ventilator 40 06/30/17 06:00 77 06/30/17 04:00 40 06/30/17 04:00 98.9 83 17 176/72 (106) 100 06/30/17 04:00 83 06/30/17 02:00 76 06/30/17 00:00 40 06/30/17 00:00 99.7 79 21 151/77 (101) 100 06/30/17 00:00 79 06/29/17 23:50 100 40 06/29/17 22:00 70 06/29/17 20:00 99.2 82 14 126/68 (87) 100 06/29/17 20:00 40 06/29/17 20:00 82 06/29/17 19:00 100 Mechanical Ventilator 40 06/29/17 18:00 75 06/29/17 16:00 98.4 77 28 137/63 (87) 06/29/17 16:00 40 06/29/17 16:00 81 06/29/17 15:47 100 40 06/29/17 14:00 78 06/29/17 12:00 40 06/29/17 12:00 98.8 79 16 110/57 (74) 06/29/17 12:00 73 06/29/17 11:38 100 40 06/29/17 10:00 69 06/29/17 08:00 82 06/29/17 08:00 40 06/29/17 08:00 98.6 82 14 122/65 (84) 06/29/17 07:55 40 06/29/17 07:55 100 40 06/29/17 07:00 97 40 06/29/17 06:00 80 06/29/17 04:00 99.0 83 17 124/61 (82) 99 06/29/17 04:00 40 06/29/17 04:00 83 06/29/17 03:21 99 40 06/29/17 02:00 79 06/29/17 00:37 98 40 06/29/17 00:00 93 06/29/17 00:00 99.1 93 14 101/64 (76) 98 06/29/17 00:00 40 06/28/17 22:00 117 06/28/17 20:00 99.1 126 22 142/77 (98) 96 06/28/17 20:00 40 06/28/17 20:00 122 06/28/17 19:19 94 40 06/28/17 19:00 96 Mechanical Ventilator 40 06/28/17 18:00 113 06/28/17 17:20 100 40 06/28/17 16:00 40 06/28/17 16:00 106 06/28/17 16:00 98.1 106 14 111/63 (79) 99 Physical Examination GENERAL: Lethargic, intubated & mechanically ventilated, no sedation. No apparent distress. HEENT: Normocephalic. Left kan hole w/ventriculostomy catheter in place & right kan hole w/sutures, no evident drainage, erythema or streaking from sites. PERRLA 2 mm reactive. Orally trached. OGT. MUSCULOSKELETAL: Moves extremities to noxious stimulation. Spontaneously moves right hand. No evident clubbing or deformity. NEUROLOGICAL: Lethargic, no sedation. Opens eyes to noxious stimulation, readily falls back asleep. PERRLA 2 mm reactive. Nonverbal, intubated. Does not follow commands. Spontaneously moves right hand. Moves all extremities to varying degrees to local noxious stimulation. Ventriculostomy at 5 cm H2O w/blood-tinged CSF in the collection chamber. ICP is 2 mm Hg when seen. Lab, Micro, Other Results Recent Impressions Chest X-Ray 07/01/17 06 Signed Impressions: Service Date/Time: Saturday, July 01, 2017 04:15 - CONCLUSION: 1. Support apparatus in good position. Mild basilar airspace disease. Findings similar to June 29. Ivan Bahena MD Abdomen X-Ray 07/01/17 06 Signed Impressions: Service Date/Time: Saturday, July 01, 2017 04:18 - CONCLUSION: 1. Nonspecific bowel gas pattern without evidence for obstruction or free air. Ivan Bahena MD Chest X-Ray 06/29/17 0600 Signed Impressions: Service Date/Time: Thursday, June 29, 2017 03:52 - CONCLUSION: No significant change. Trace left base atelectasis. Harsha Ayala MD Abdomen X-Ray 06/29/17 0000 Signed Impressions: Service Date/Time: Thursday, June 29, 2017 15:21 - CONCLUSION: 1. No significant ileus 2. Satisfactory position of nasogastric tube. Rene Lomeli MD Laboratory Tests Test 06/28/17 17:00 06/29/17 06:06 06/29/17 18:30 06/30/17 04:10 White Blood Count 14.0 TH/MM3 10.6 TH/MM3 Red Blood Count 3.42 MIL/MM3 3.27 MIL/MM3 Hemoglobin 10.5 GM/DL 10.1 GM/DL Hematocrit 30.4 % 29.0 % Mean Corpuscular Volume 88.8 FL 88.8 FL Mean Corpuscular Hemoglobin 30.6 PG 30.8 PG Mean Corpuscular Hemoglobin Concent 34.4 % 34.6 % Red Cell Distribution Width 13.3 % 13.2 % Platelet Count 288 TH/MM3 289 TH/MM3 Mean Platelet Volume 8.7 FL 8.8 FL Neutrophils (%) (Auto) 84.6 % 74.0 % Lymphocytes (%) (Auto) 11.0 % 16.6 % Monocytes (%) (Auto) 4.0 % 8.2 % Eosinophils (%) (Auto) 0.1 % 0.3 % Basophils (%) (Auto) 0.3 % 0.9 % Neutrophils # (Auto) 11.8 TH/MM3 7.8 TH/MM3 Lymphocytes # (Auto) 1.5 TH/MM3 1.8 TH/MM3 Monocytes # (Auto) 0.6 TH/MM3 0.9 TH/MM3 Eosinophils # (Auto) 0.0 TH/MM3 0.0 TH/MM3 Basophils # (Auto) 0.0 TH/MM3 0.1 TH/MM3 CBC Comment DIFF FINAL DIFF FINAL Differential Comment Blood Urea Nitrogen 24 MG/DL 21 MG/DL Creatinine 1.02 MG/DL 0.93 MG/DL Random Glucose 190 MG/DL 170 MG/DL Total Protein 6.5 GM/DL 6.5 GM/DL Albumin 2.0 GM/DL 2.1 GM/DL Calcium Level 8.4 MG/DL 8.4 MG/DL Phosphorus Level 2.7 MG/DL 2.0 MG/DL Magnesium Level 1.9 MG/DL 1.8 MG/DL Alkaline Phosphatase 137 U/L 128 U/L Aspartate Amino Transf (AST/SGOT) 37 U/L 57 U/L Alanine Aminotransferase (ALT/SGPT) 12 U/L 15 U/L Total Bilirubin 0.5 MG/DL 0.4 MG/DL Sodium Level 139 MEQ/L 136 MEQ/L Potassium Level 3.5 MEQ/L 4.0 MEQ/L Chloride Level 105 MEQ/L 102 MEQ/L Carbon Dioxide Level 23.3 MEQ/L 25.3 MEQ/L Anion Gap 11 MEQ/L 9 MEQ/L Estimat Glomerular Filtration Rate 52 ML/MIN 58 ML/MIN Anti-Nuclear Antibody Screen NEG Urine Color YELLOW Urine Turbidity CLEAR Urine pH 6.0 Urine Specific [place] 1.025 Urine Protein TRACE mg/dL Urine Glucose (UA) NEG mg/dL Urine Ketones NEG mg/dL Urine Occult Blood NEG Urine Nitrite NEG Urine Bilirubin NEG Urine Urobilinogen 2.0 MG/DL Urine Leukocyte Esterase TRACE Urine RBC 2 /hpf Urine WBC 5 /hpf Urine Squamous Epithelial Cells 1 /hpf Urine Amorphous Sediment RARE Urine Hyaline Casts 3 /lpf Urine Mucus FEW /lpf Microscopic Urinalysis Comment CATH-CULT NOT IND Test 07/01/17 03:46 White Blood Count 9.8 TH/MM3 Red Blood Count 2.94 MIL/MM3 Hemoglobin 9.2 GM/DL Hematocrit 26.2 % Mean Corpuscular Volume 89.2 FL Mean Corpuscular Hemoglobin 31.2 PG Mean Corpuscular Hemoglobin Concent 35.0 % Red Cell Distribution Width 13.4 % Platelet Count 250 TH/MM3 Mean Platelet Volume 8.6 FL Blood Urea Nitrogen 17 MG/DL Creatinine 0.78 MG/DL Random Glucose 146 MG/DL Calcium Level 8.1 MG/DL Phosphorus Level 4.2 MG/DL Magnesium Level 2.0 MG/DL Sodium Level 137 MEQ/L Potassium Level 4.5 MEQ/L Chloride Level 101 MEQ/L Carbon Dioxide Level 27.9 MEQ/L Anion Gap 8 MEQ/L Estimat Glomerular Filtration Rate 71 ML/MIN Orders Procedure Category Date Status Time Ventriculostomy MIGUEL ÁNGEL 06/28/17 Complete 17:29 Code Status CODE 06/29/17 Transmitted 14:44 Complete Blood Count LAB 06/30/17 Complete With Diff 06:00 Comprehensive LAB 06/30/17 Complete Metabolic Panel 06:00 Magnesium (Mg) LAB 06/30/17 Complete 06:00 Phosphorus (Po4) LAB 06/30/17 Complete 06:00 Sputum Culture And SHMUEL 06/29/17 In Process Gram Stain 15:06 Blood Culture SHMUEL 06/29/17 In Process 15:06 Urinalysis - C+S If LAB 06/29/17 Complete Indicated 15:06 Specimen To Be MIGUEL ÁNGEL 06/29/17 In Process Collected 15:06 Abdomen, Kub Only RADDIAG 06/29/17 Resulted Metoclopramide Inj MED 06/29/17 In Process (Reglan Inj) 22:00 Methylnaltrexone Inj MED 06/29/17 Complete (Relistor Inj) 15:15 Docusate Sodium Liq MED 06/29/17 In Process (Colace Liq) 21:00 Sennosides Liq MED 06/29/17 In Process (Senna Liq) 21:00 Mineral Oil Liq MED 06/29/17 Complete (Kondremul Liq) 15:15 Glycerin Adult Supp MED 06/29/17 In Process (Glycerin Adult Supp 15:15 Magnesium Citrate Liq MED 06/30/17 Complete (Citroma Liq) 10:45 Mineral Oil Enema MED 06/30/17 Complete (Fleet Mineral Oil Kathy 10:45 Mineral Oil Liq MED 06/30/17 Complete (Kondremul Liq) 10:45 Sputum Culture And SHMUEL 06/30/17 In Process Gram Stain 10:33 Basic Metabolic Panel LAB 07/01/17 Complete (Bmp) 06:00 Cbc No Diff, Includes LAB 07/01/17 Complete Plts 06:00 Sodium Phosphate Inj MED 06/30/17 Complete (Sodium Phosphate I 12:00 Magnesium Sulfate 1 MED 06/30/17 Complete Gm Premix (Magnesium 10:45 Magnesium (Mg) LAB 07/01/17 Complete 06:00 Phosphorus (Po4) LAB 07/01/17 Complete 06:00 Piperacil-Tazo 4.5 Gm MED 06/30/17 In Process Premix (Zosyn 4.5 11:00 Abdomen, Kub Only RADDIAG 07/01/17 Resulted 06:00 Chest, Single Ap RADDIAG 07/01/17 Resulted 06:00 Medical Decision Making Impression and Plan Impression: Haemorrhagic cerebrovascular accident with intraventricular haemorrhage and hydrocephalus Patient is lethargic and nonresponsive to voice. She opens her eyes & moves all extremities to local noxious stimulation. ICP is good. T max 99.8 this morning. Reviewed labs this morning. Drop in haemoglobin level. Sodium 137. Improvement in eGFR. Left ventriculostomy output 130 mL the past 24 hrs as of shift change this morning. : Right frontal [place] hole with placement of a ventriculostomy catheter : Left frontal [place] hole with placement of a ventriculostomy catheter Plan: Primary & critical care management per Senior Grant Writer. Neuro checks. Monitor ventriculostomy drainage. Stat CT brain for any decline in neuro status. Continue mechanical ventilation, aggressive pulmonary toilette, nasotracheal suction, and breathing treatments with nebulizers. Physical & Occupational Therapy eval & tx. Continue to monitor closely urine output, BUN and creatinine Continue to Monitor serial Acu checks and SSI as needed in detail Continue to monitor for signs of infection Continue Protonix for stress ulcer prophylaxis Continue Nickolas hose and SCD's for DVT prophylaxis Kevin Colunga Jul 01, 2017 14:11
--- NOTE | 2017-07-01 14:15 | HHI.CCPN ---
Subjective Remarks/Hospital Course Severely dehydrated, elderly woman presents confused to [facility] ED with hypertensive urgency and semi-acute right hemispheric parenchymal brain hemorrhage. Arrived from [facility] on cardene gtt and aphasic. Handness not determined yet. Unable to get ROS. No anticoagulants. INR normal. 06/16: Flaccid left side. Minimal eye opening. Moves right arm and leg to stimulation. Breathes over vent. ICP control, EVD draining well. 06/17: Moving both arms, right much stronger. More alert but episodic apnea spells. 06/18: No events over the night. Patient remains intubated, off sedation. She is currently on pressure support, 01/04, doing well. Awake, following commands. Son present at bedside. T-max of 99.6. I/O 250/1545. 06/19: No events over the night. Patient did well yesterday on pressure support , but was not able to be extubated secondary to no cuff leak. She remains on Cardene currently at 9.5 mg/h. Afebrile with a T-max of 99.4. Negative fluid balance. 06/20: Patient did well over the night. T-max of 100.2. ICP of 4. Thick sputum secretions sent yesterday for culture now growing Staphylococcus. Patient is awake, off sedation following some commands. Off Cardene drip since yesterday. 06/21: Patient did well postextubation and over the night. T-max of 100 yesterday morning. Very good urine output. Patient awake following commands, denying any pain. 06/22: No events over the night. Patient doing well. She is awake and alert, denies headache, nausea, vomiting. No chest pain, no dyspnea, no palpitations. On 2 L nasal cannula. Afebrile over the last 24 hours. Diuresed well post Lasix and she is on negative fluid balance since admission. 06/23: Patient awake, feels better, denies chest pain, shortness of breath, palpitations, headache. Still has productive cough. Afebrile, urine output is adequate. 06/24: No events over the night. Patient afebrile over the last 24 hours. She remains awake, resting in bed, denies any complaints. Sons at bedside. 06/25: Resting comfortably. Drowsy, arousable. EVD at 15cm, drained 60 cc overnight. 06/26: Resting comfortably. Awake and alert. EVD in place drain 10 cc overnight however has some clear fluid draining around ventriculostomy site. Dr. Nixon planning [employer] shunt for tomorrow. 06/27: Afebrile. Less arousable today. Eyes are closed. Subjective left-sided weakness. EVD in place at 20 cm. 4 cc overnight. On cefazolin with clear fluid draining from ventriculostomy site. MRI brain currently pending. 06/28: Afebrile. Intubated yesterday secondary to altered mental status/ aspiration. Arousable and follows commands in the ventilator. 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 Echocardiogram pending. Possibly some right carotid stenosis on carotid ultrasound which does not correlate to this current acute left MCA CVA 06/29: Afebrile. More arousable today. Spontaneously moving left upper extremity. Opens eyes to voice. Not following commands. Tolerating tube feeds at goal. 06/30: Resting in bed in no acute distress. More arousable today. Spontaneously moving left upper extremity. Opens eyes to voice. No bowel movement Subjective 07/01: T-max 99.8. Currently 99.3. Opens eyes to voice. Squeezes bilateral hands right greater than left. Not following commands however. Tolerating spontaneous breathing trial Objective Vital Signs Date Time Temp Pulse Resp B/P (MAP) Pulse Ox O2 Delivery O2 Flow Rate FiO2 07/01/17 12:33 99 40 07/01/17 12:00 71 07/01/17 12:00 99.3 21 130/66 (87) 07/01/17 07:00 Mechanical Ventilator 06/27/17 07:00 2.00 Intake and Output 07/01/17 07/01/17 07/02/17 08:00 16:00 00:00 Intake Total 900 ml Output Total 895 ml Balance 5 ml Result Diagram: 07/01/17 0346 07/01/17 0346 Other Results Microbiology Date/Time Source Procedure Growth Status 06/29/17 20:02 Blood Peripheral Aerobic Blood Culture - Preliminary NO GROWTH IN 2 DAYS Resulted 06/29/17 20:02 Blood Peripheral Anaerobic Blood Culture - Preliminary NO GROWTH IN 2 DAYS Resulted 06/27/17 11:20 Cerebral Spinal Fluid Shunt Fluid Gram Stain - Final Complete 06/27/17 11:20 Cerebral Spinal Fluid Shunt Fluid CSF Culture - Final NO GROWTH IN 72 HRS.--AEROBICALLY OR ... Complete 06/30/17 12:30 Sputum Endotracheal Gram Stain - Final Resulted 06/30/17 12:30 Sputum Culture - Preliminary Gram Negative Cedrick Resulted Imaging Last Impressions Chest X-Ray 07/01/17 0600 Signed Impressions: Service Date/Time: Saturday, July 01, 2017 04:15 - CONCLUSION: 1. Support apparatus in good position. Mild basilar airspace disease. Findings similar to June 29. Ivan Bahena MD Abdomen X-Ray 07/01/17 06 Signed Impressions: Service Date/Time: Saturday, July 01, 2017 04:18 - CONCLUSION: 1. Nonspecific bowel gas pattern without evidence for obstruction or free air. Ivan Bahena MD Carotid Artery Ultrasound 06/27/17 0000 Signed Impressions: Service Date/Time: Tuesday, June 27, 2017 12:59 - CONCLUSION: 1. Moderate diffuse atherosclerotic plaquing at both carotid bifurcations. 2. Mild elevated velocity in the proximal right internal carotid artery. If clinically indicated , recommend CTA of the carotid arteries for further evaluation. 3. No definite high grade or hemodynamically significant stenosis is demonstrated. David Moore MD Brain MRI 06/27/17 0000 Signed Impressions: Service Date/Time: Tuesday, June 27, 2017 09:23 - CONCLUSION: 1. New development of a nonhemorrhagic acute infarct involving the left occipital lobe. 2. Otherwise, the rest of the exam is stable compared to the prior MRI. David Moore MD Head CT 06/26/17 0000 Signed Impressions: Service Date/Time: Monday, June 26, 2017 10:08 - CONCLUSION: 1. Continued evolution of right cerebral hematoma with slightly increasing surrounding edema. 2. No new hemorrhage identified. 3. Continued ventricular dilatation with no further decompression following placement of ventriculostomy. 4. No significant shift of midline structures. Rene Lomeli MD Head Magnetic Resonance Angiography 06/15/17 0000 Signed Impressions: Service Date/Time: Thursday, June 15, 2017 11:52 - CONCLUSION: MRA within normal limits. There is a parenchymal hemorrhage in the posterior right temporal lobe with intraventricular extension. Ivan Bahena MD Objective Remarks General - 77-year-old female, orotracheally intubated HEENT - pupils are equal and reactive about 2.5-3 mm bilaterally, sclerae are anicteric, neck is supple, neck veins are not distended, + EVD right-sided bur hole, moist mucous membranes CV -RRR. S1, S2 no S 4. No murmurs, rubs or gallops Chest - clear to auscultation bilateral, no wheezes Abdomen - soft, nontender, not distended, BS present Extremities -warm, 1+ edema, + peripheral pulses Neuro -arousable on the ventilator and follows commands. Left gaze preference. , no facial asymmetry, squeezes fingers on both upper extremities but weak left side subjectively weaker than right strength 3 out of 5, wiggles toes to command A/P Assessment and Plan Neuro/Psych: Right posterior temporal/occipital/parietal intra-axial hematoma Left MCA posterior temporal occipital CVA Right complex partial seizure Wernicke aphasia Acute encephalopathy CT brain 06/25 revealed a right occipital parietal intra-axial hematoma with mild surrounding edema. Right ventriculostomy placed 06/27-currently 5 cm H2O. 170 cc blood tinged MRI brain revealed a left MCA CVA involving the left posterior temporal occipital region On levetiracetam 500 mg twice daily for seizure. Acetaminophen 650 mg p.o. every 6 hours as needed fever/pain MRI brain admission revealed right posterior temporal hemorrhage with ventricular extension MRA brain negative for aneurysm Carotid Dopplers with possible right carotid stenosis. Does not explain acute left MCA CVA. ESR, CRP and hypercoagulable workup pending Followed by Dr. Crowell neurology CV: Hypertensive emergency Dyslipidemia Currently on metoprolol 25 mg by mouth twice daily Currently on pravastatin 40 mg daily/on atorvastatin 40 mg daily at home Holding aspirin 81 mg daily in light of acute hemorrhage 06/29 echo - Normal left ventricular size. Mild concentric left ventricular hypertrophy. The left ventricular systolic function is hyperdynamic with an estimated ejection fraction in the range of 65-70%. Mitral annular calcification is present. There is trace tricuspid valve regurgitation. The estimated pulmonary arterial pressure is 43 mmHg. Resp: Acute respiratory failure secondary to aspiration PRVC 14/450/1.2/40 CPAP trials daily Ventilator bundle Albuterol/ipratropium aerosols every 6 hours while awake with albuterol aerosols every 2 hours as needed dyspnea Spontaneous breathing trials daily GI: Hypoalbuminemia Constipation Jevity 1.5 at 50 cc an hour at goal Famotidine 10 mg twice daily for GI prophylaxis Docusate sodium/senna 1 tablet twice daily for bowel regimen. Continue polyethylene glycol 17 g twice daily, : Box catheter if indicated for accurate I's and O's in a critically ill patient. Endo: Sliding scale insulin if indicated to maintain euglycemia Renal: Creatinine currently within normal limits Monitor urine output Accurate I's and O's Heme: Normocytic anemia Monitor CBC daily. Follow trend Hypercoagulable workup currently in process ID: [id number] and and Klebsiella pneumonia Continue cefazolin 2 g IV every 8 hours day #7 Switch to penicillin/tazobactam day #2 Pertinent cultures 06/30 -sputum -gram-negative cedrick 06/29 -blood cultures 2 -no growth 06/18 -staph aureus/Klebsiella pneumonia sputum FEN: Hypophosphatemia Replace electrolytes as clinically indicated 30 mmol sodium-Phos and 2 g mag sulfate IV 1 now. Recheck in a.m. MSK: Osteoarthritis/osteoporosis Holding alendronate 70 mg weekly. Resume clinically indicated Access -Utilize peripheral IV. Central line if indicated Prophylaxis -GI -famotidine -DVT -SCD/holding pharmacological prophylaxis in light of left right cerebral hematoma. Initiate when okay with neurosurgery Level 2 follow-up Osman Babin MD Jul 01, 2017 14:15
[2017-07-01] MEDS: PRAVASTATIN SOD 40 MG TAB PO SCH (20:04)
[2017-07-01] MEDS: RESP: ALBUTEROL 2.5 MG/IPRATROPIUM 0.5 MG NEB (SCH) NEB (20:48)
[2017-07-02] VITALS (16 sets, daily range): BP systolic 111–136; BP diastolic 60–86; PULSE 68–78; RESP 15–28; TEMP 98.4–100.1; O2SAT 100
[2017-07-02 03:50] LABS: HOMOCYSTEINE 16.4 umol/L (<10.4)
[2017-07-02] MEDS: CHLORHEXIDINE GLUCONATE 2 % 1 PACK (2 CLOTHS) TOP SCH (04:00)
[2017-07-02] MEDS: ARTIFICIAL TEARS OPTH SOLN 15 ML BTL EACH EYE SCH ×3 (05:34→22:00)
[2017-07-02] MEDS: METOCLOPRAMIDE HCL 10 MG/2 ML VIAL IV PUSH SCH ×3 (05:34→22:00)
[2017-07-02] MEDS: PIPERACIL-TAZO 4.5 GM PREMIX 100 ML IV SCH ×4 (05:34→23:00)
[2017-07-02 06:02] LABS: HEMATOCRIT 25.3 % (35.0-46.0); HEMOGLOBIN 8.8 GM/DL (11.6-15.3); MEAN CELL VOLUME 89.5 FL (80.0-100.0); MEAN CORPUSCULAR HEMOGLOBIN 31.1 PG (27.0-34.0); MEAN CORPUSCULAR HGB CONC 34.7 % (32.0-36.0); MEAN PLATELET VOLUME 8.3 FL (7.0-11.0); PLATELET COUNT 234 TH/MM3 (150-450); RED BLOOD COUNT 2.82 MIL/MM3 (4.00-5.30); RED CELL DISTRIBUTION WIDTH 13.2 % (11.6-17.2); WHITE BLOOD COUNT 9.5 TH/MM3 (4.0-11.0)
[2017-07-02 06:23] LABS: BICARBONATE 27.8 MEQ/L (21.0-32.0); CALCIUM 8.2 MG/DL (8.5-10.1); CREATININE 0.87 MG/DL (0.50-1.00)
--- NOTE | 2017-07-02 06:58 | RADRPT ---
EXAM DATE/TIME: 07/02/2017 04:23 [place] COMPARISON: CHEST SINGLE AP, July 01, 2017, 4:15. INDICATIONS : Short of breath, respiratory failure MEDICAL HISTORY : Hypertension. CVA SURGICAL HISTORY : None. ENCOUNTER: Subsequent ACUITY: 2 weeks PAIN SCORE: Non-responsive. LOCATION: Bilateral chest FINDINGS: Endotracheal tube and nasogastric tube are stable in good position. Mild left perihilar and left base parenchymal opacity persists, unchanged. Right lung is grossly stable and clear. Cardiac contours ar e stable. CONCLUSION: No significant change Harsha Wen MD on July 02, 2017 at 6:56 Board Certified Radiologist. This report was verified electronically.
[2017-07-02] MEDS: CHLORHEXIDINE 0.12% (ORAL KIT) 15 ML CUP MT SCH ×2 (08:40→20:10)
[2017-07-02] MEDS: RESP: ALBUTEROL 2.5 MG/IPRATROPIUM 0.5 MG NEB (SCH) NEB ×3 (08:55→22:00)
--- NOTE | 2017-07-02 08:58 | HHI.NSPN ---
(Bell Mooney) Note Status Status: Progress Note (Bell Mooney) Interval History Interval History 77 year old female with large hemorrhage stroke with hydrocephalus, worsening mental status, patient became severely obtunded difficult to arouse, she underwent placement of ventriculostomy drain 06/15/1706/16: ventriculostomy draining well, intubated, opening eyes and moving right side spontaneously. 06/18: ventriculostomy draining well, remains intubated, opens eyes, tracks, moves right side, stable left paresis 06/19: ventriculostomy draining well, CSF still bloody, dark red. opens eyes and moves right side spontaneously 06/20: ventriculostomy draining well, still gross bloody CSF, intubated, but opens eyes and gave thumbs up to command 06/25: Awake, ventriculostomy draining, drain raised to 15 cm of water over the weekend with stable ICPs. 06/26: EVD raised to 20 cm H20 yesterday, ICPs remains stable overnight, however appears more lethargic today, minimally opens eyes but falls back asleep. 06/27: MRI Brain this morning with new acute nonhemorrhagic left occipital infarct. 06/28: left ventriculostomy draining well, intubated 07/02: ventriculostomy draining well, remains intubated. ICPs low. (Bell Mooney) Labs, Micro, & Vital Signs Results Date Time Temp Pulse Resp B/P (MAP) Pulse Ox O2 Delivery O2 Flow Rate FiO2 07/02/17 06:00 69 07/02/17 04:38 100 40 07/02/17 04:00 40 07/02/17 04:00 68 07/02/17 04:00 98.6 68 20 133/62 (85) 100 07/02/17 02:00 70 07/02/17 00:00 70 07/02/17 00:00 98.4 72 15 127/65 (85) 100 07/02/17 00:00 40 07/01/17 23:51 100 40 07/01/17 22:00 78 07/01/17 20:41 100 40 07/01/17 20:00 40 07/01/17 20:00 99.4 76 24 126/63 (84) 100 07/01/17 20:00 70 07/01/17 19:00 100 Mechanical Ventilator 2.00 40 07/01/17 18:00 72 07/01/17 16:00 77 07/01/17 16:00 40 07/01/17 16:00 99.6 77 22 140/64 (89) 97 07/01/17 15:53 98 40 07/01/17 14:00 72 07/01/17 12:33 99 40 07/01/17 12:00 71 07/01/17 12:00 40 07/01/17 12:00 99.3 71 21 130/66 (87) 99 07/01/17 10:00 68 Constitutional Vital Signs Date Time Temp Pulse Resp B/P (MAP) Pulse Ox O2 Delivery O2 Flow Rate FiO2 07/02/17 06:00 69 07/02/17 04:38 100 40 07/02/17 04:00 40 07/02/17 04:00 68 07/02/17 04:00 98.6 68 20 133/62 (85) 100 07/02/17 02:00 70 07/02/17 00:00 70 07/02/17 00:00 98.4 72 15 127/65 (85) 100 07/02/17 00:00 40 07/01/17 23:51 100 40 07/01/17 22:00 78 07/01/17 20:41 100 40 07/01/17 20:00 40 07/01/17 20:00 99.4 76 24 126/63 (84) 100 07/01/17 20:00 70 07/01/17 19:00 100 Mechanical Ventilator 2.00 40 07/01/17 18:00 72 07/01/17 16:00 77 07/01/17 16:00 40 07/01/17 16:00 99.6 77 22 140/64 (89) 97 07/01/17 15:53 98 40 07/01/17 14:00 72 07/01/17 12:33 99 40 07/01/17 12:00 71 07/01/17 12:00 40 07/01/17 12:00 99.3 71 21 130/66 (87) 99 07/01/17 10:00 68 (Bell Mooney) Review of Systems ROS Limitations: Intubated (Bell Mooney) Physical Exam Ms. Patrick is intubated. Grimaces to noxious stimuli. HEENT: Left ventriculostomy at 5 cm H20 draining dark red CSF. ICPs=1. Nonicteric sclera Cranial Nerves: Pupils equal, round reactive. Cervical Spine: soft, supple Motor: not following for testing, spontaneous movements noted Sensory: withdraws to pain stimuli Heart: regular rate rhythm Lungs: clear (Bell Mooney) Ms. Patrick remains intubated and sedated. Left ventriculostomy at 5 cm H20 draining dark red CSF. Cranial Nerves: Pupils equal, round Cervical Spine: soft, supple Motor: minimal response Sensory. responds tyo pain localizing Cerebellar exam is not possibl;e due to her neurological condition Lungs. Bilateral rhonchi Heart regular rhythm and rate Skin warm and dry (Andre Nixon MD) Medications Current Medications Current Medications Medications (Trade) Dose Ordered Sig/Jose Guadalupe Route PRN Reason Start Time Stop Time Status Last Admin Dose Admin Sodium Chloride (NS Flush) 2 ml UNSCH PRN IV FLUSH FLUSH AFTER USING IV ACCESS 06/15/17 05:15 06/30/17 20:58 Acetaminophen (Tylenol) 650 mg Q6H PRN PO PAIN 1-10 AND/OR FEVER >101F 06/15/17 06:30 06/23/17 20:18 Ondansetron HCl (Zofran Inj) 4 mg Q6H PRN IV PUSH NAUSEA OR VOMITING 06/15/17 06:30 Miscellaneous Information 1 Q361D XX 06/15/17 06:30 06/15/17 06:30 Chlorhexidine Gluconate (Chlorhexidine 2% Cloth) Taper DAILY@04 TOP 06/16/17 04:00 06/12/18 03:59 06/20/17 04:00 Chlorhexidine Gluconate (Chlorhexidine 2% Cloth) 3 pack UNSCH PRN TOP HYGIENIC CARE 06/15/17 06:30 Magnesium Hydroxide (Milk Of Magnesia Liq) 30 ml Q12H PRN PO Mild constipation 06/15/17 06:30 06/22/17 20:58 Sennosides (Senokot) 17.2 mg Q12H PRN PO Moderate constipation 06/15/17 06:30 Bisacodyl (Dulcolax Supp) 10 mg DAILY PRN RECTAL SEVERE CONSITIPATION 06/15/17 06:30 Lactulose (Lactulose Liq) 30 ml DAILY PRN PO SEVERE CONSITIPATION 06/15/17 06:30 06/22/17 20:58 Chlorhexidine Gluconate (Peridex 0.12% Liq) 15 ml BID@08,20 MT 06/15/17 20:00 07/02/17 08:40 Levetriacetam (Keppra) 500 mg Q12HR PO 06/17/17 11:30 07/01/17 20:04 Pravastatin Sodium (Pravachol) 40 mg HS PO 06/18/17 21:00 07/01/17 20:04 Metoprolol Tartrate (Lopressor) 25 mg Q12HR PO 06/19/17 09:00 07/01/17 20:04 Hydralazine HCl (Apresoline Inj) 10 mg Q4H PRN IV PUSH SBP greater than 160 06/20/17 12:30 07/01/17 11:34 Famotidine (Pepcid) 10 mg BID PO 06/25/17 21:00 07/01/17 20:04 Albuterol Sulfate (Albuterol Neb) 2.5 mg Q2HR NEB PRN NEB dyspnea 06/27/17 09:15 Labetalol HCl (Trandate Inj) 10 mg Q1HR PRN IV PUSH SBP>160, DBP>90, HR>65 06/27/17 09:15 06/30/17 05:37 Propofol 100 ml @ 2.073 mls/ hr TITRATE PRN IV SEDATION 06/27/17 11:00 06/28/17 13:58 Fentanyl Citrate 250 ml @ 5 mls/hr TITRATE PRN IV SEDATION 06/27/17 11:00 Artificial Tears (Tears Naturale Opth Soln) 1 drop Q8HR EACH EYE 06/28/17 17:00 07/01/17 13:09 Polyethylene Glycol (Miralax) 17 gm BID PO 06/28/17 21:00 07/01/17 20:04 Metoclopramide HCl (Reglan Inj) 5 mg Q8HR IV PUSH 06/29/17 22:00 07/02/17 05:34 Docusate Sodium (Colace Liq) 100 mg Q12HR PO 06/29/17 21:00 07/01/17 20:04 Sennosides (Senna Liq) 8.8 mg BID PO 06/29/17 21:00 07/01/17 20:04 Piperacillin Sod/ Tazobactam Sod 100 ml @ 200 mls/hr Q6H IV 06/30/17 11:00 07/02/17 05:34 Albuterol/ Ipratropium (Duoneb Neb) 1 ampule Q6HR WHILE AWAKE NEB NEB 07/01/17 20:00 07/01/17 20:48 (Bell Mooney) Current Medications Current Medications Sodium Chloride (NS Flush) 2 ml UNSCH PRN IV FLUSH FLUSH AFTER USING IV ACCESS Last administered on 07/02/17at 10:18; Start 06/15/17 at 05:15 Sodium Chloride 500 ml @ 500 mls/hr BOLUS ONCE IV ; Start 06/15/17 at 06:00; Stop 06/15/17 at 06:59; Status DC Nicardipine HCl 25 mg/Sodium Chloride 250 ml @ 50 mls/hr TITRATE PRN IV Blood pressure management Last administered on 06/19/17at 06:43; Start 06/15/17 at 06: 15; Stop 06/23/17 at 17:33; Status DC Pravastatin Sodium (Pravachol) 80 mg HS PO Last administered on 06/17/17at 23:23 ; Start 06/15/17 at 21:00; Stop 06/18/17 at 09:30; Status DC Levetriacetam 100 ml @ 400 mls/hr BOLUS ONCE IV Last administered on at 09:43; Start 06/15/17 at 06:30; Stop 06/15/17 at 06:44; Status DC Sodium Chloride 1,000 ml @ 100 mls/hr Q10H IV Last administered on 06/17/17at 07:29; Start 06/15/17 at 06:17; Stop 06/17/17 at 12:42; Status DC Acetaminophen (Tylenol) 650 mg Q6H PRN PO PAIN 1-10 AND/OR FEVER >101F Last administered on 06/23/17at 20:18; Start 06/15/17 at 06:30 Morphine Sulfate (Morphine Inj) 2 mg Q2H PRN IV PUSH PAIN SCALE 6 TO 10 Last administered on 06/19/17at 08:29; Start 06/15/17 at 06:30; Stop 06/20/17 at 08:25 ; Status DC Famotidine (Pepcid Inj) 10 mg Q12HR IV PUSH Last administered on 06/25/17at 08: 45; Start 06/15/17 at 09:00; Stop 06/25/17 at 16:28; Status DC Ondansetron HCl (Zofran Inj) 4 mg Q6H PRN IV PUSH NAUSEA OR VOMITING; Start at 06:30 Albuterol/ Ipratropium (Duoneb Neb) 1 ampule Q4HR NEB PRN INH WHEEZING; Start 06/15/17 at 06:30; Stop 06/27/17 at 09:15; Status DC Miscellaneous Information 1 Q361D XX Last administered on 06/15/17at 06:30; Start 06/15/17 at 06:30 Chlorhexidine Gluconate (Chlorhexidine 2% Cloth) Taper DAILY@04 TOP Last administered on 06/20/17at 04:00; Start 06/16/17 at 04:00; Stop 06/12/18 at 03:59 Chlorhexidine Gluconate (Chlorhexidine 2% Cloth) 3 pack UNSCH PRN TOP HYGIENIC CARE; Start 06/15/17 at 06:30 Senna/Docusate Sodium ([place]-Colace) 1 tab BID PO Last administered on at 08:00; Start 06/15/17 at 09:00; Stop 06/29/17 at 15:16; Status DC Magnesium Hydroxide (Milk Of Magnesia Liq) 30 ml Q12H PRN PO Mild constipation Last administered on 06/22/17at 20:58; Start 06/15/17 at 06:30 Sennosides (Senokot) 17.2 mg Q12H PRN PO Moderate constipation; Start 06/15/17 at 06:30 Bisacodyl (Dulcolax Supp) 10 mg DAILY PRN RECTAL SEVERE CONSITIPATION; Start at 06:30 Lactulose (Lactulose Liq) 30 ml DAILY PRN PO SEVERE CONSITIPATION Last administered on 06/22/17at 20:58; Start 06/15/17 at 06:30 Rocuronium [place] (Zemuron Inj) 100 mg BOLUS ONCE IV Last administered on at 14:34; Start 06/15/17 at 14:00; Stop 06/15/17 at 14:01; Status DC Midazolam HCl (Versed Inj) 5 mg ONCE ONCE IV PUSH Last administered on at 14:35; Start 06/15/17 at 14:00; Stop 06/15/17 at 14:01; Status DC Chlorhexidine Gluconate (Peridex 0.12% Liq) 15 ml BID@08,20 MT Last administered on 07/04/17 09:31; Start 06/15/17 at 20:00 Propofol 100 ml @ 0 mls/hr TITRATE PRN IV SEDATION; Start 06/15/17 at 14:00; Status UNV Midazolam HCl (Versed Inj) 5 mg STK-MED ONCE .ROUTE ; Start 06/15/17 at 14:07; Stop 06/15/17 at 14:08; Status DC Rocuronium [place] (Zemuron Inj) 50 mg STK-MED ONCE .ROUTE ; Start 06/15/17 at 14:07; Stop 06/15/17 at 14:08; Status DC Propofol 100 ml @ 1.941 mls/ hr TITRATE PRN IV SEDATION Last administered on at 14:41; Start 06/15/17 at 14:45; Stop 06/21/17 at 14:09; Status DC Miscellaneous Information (RASS Change Order) 1 ea ONCE ONCE XX Last administered on 06/15/17at 14:45; Start 06/15/17 at 14:45; Stop 06/15/17 at 14:46 ; Status DC Norepinephrine Bitartrate 4 mg/ Sodium Chloride 250 ml @ 7.5 mls/hr TITRATE PRN IV Maintain MAP > 70 mmHg; Start 06/15/17 at 19:45; Stop 06/15/17 at 21:37; Status DC Norepinephrine Bitartrate 4 mg/ Sodium Chloride 250 ml @ 7.5 mls/hr TITRATE PRN IV Maintain MAP > 70 mmHg Last administered on 06/15/17at 19:00; Start at 21:45; Stop 06/20/17 at 08:11; Status DC Levetriacetam (Keppra) 500 mg Q12HR PO Last administered on 07/04/17 09:31; Start 06/17/17 at 11:30 Potassium Chloride 20 meq/ Lactated Ringer's 1,010 ml @ 42 mls/hr Q24H IV ; Start 06/17/17 at 12:45; Stop 06/17/17 at 13:02; Status DC Potassium Chloride 10 meq/ Lactated Ringer's 505 ml @ 42 mls/hr Q12H2M IV Last administered on 06/19/17at 22:32; Start 06/17/17 at 13:15; Stop 06/20/17 at 08:13; Status DC Pravastatin Sodium (Pravachol) 40 mg HS PO Last administered on 07/03/17 22:19 ; Start 06/18/17 at 21:00 Potassium Phosphate 15 mmol/ Sodium Chloride 155 ml @ 38.75 mls/ hr ONCE ONCE IV Last administered on 06/19/17at 08:50; Start 06/19/17 at 08:00; Stop at 11:59; Status DC Metoprolol Tartrate (Lopressor) 25 mg Q12HR PO Last administered on 07/04/17 09 :31; Start 06/19/17 at 09:00 Pharmacy Profile Note 0 ml @ 0 mls/hr UNSCH OTHER ; Start 06/20/17 at 08:15; Stop 06/21/17 at 14:09; Status DC Albuterol/ Ipratropium (Duoneb Neb) 1 ampule Q6HR NEB NEB Last administered on 06/24/17at 07:16; Start 06/20/17 at 10:00; Stop 06/24/17 at 09:59; Status DC Vancomycin HCl 1250 mg/Sodium Chloride 262.5 ml @ 262.5 mls/ hr ONCE ONCE IV Last administered on 06/20/17at 13:29; Start 06/20/17 at 12:00; Stop 06/20/17 at 12:59; Status DC Hydralazine HCl (Apresoline Inj) 10 mg Q4H PRN IV PUSH SBP greater than 160 Last administered on 07/01/17at 11:34; Start 06/20/17 at 12:30 Potassium Phosphate 15 mmol/ Sodium Chloride 155 ml @ 38.75 mls/ hr ONCE ONCE IV Last administered on 06/20/17at 17:05; Start 06/20/17 at 13:45; Stop at 17:44; Status DC Furosemide (Lasix Inj) 40 mg ONCE ONCE IV PUSH Last administered on 06/21/17at 08:53; Start 06/21/17 at 08:30; Stop 06/21/17 at 08:31; Status DC Cefazolin Sodium/ Dextrose 50 ml @ 100 mls/hr Q8H IV Last administered on 06/24at 15:02; Start 06/21/17 at 15:00; Stop 06/24/17 at 21:47; Status DC Cefazolin Sodium 2000 mg/Sodium Chloride 120 ml @ 240 mls/hr Q8H IV Last administered on 06/30/17at 06:06; Start 06/24/17 at 23:00; Stop 06/30/17 at 10:37 ; Status DC Famotidine (Pepcid) 10 mg BID PO Last administered on 07/03/17at 08:48; Start at 21:00; Stop 07/03/17 at 20:13; Status DC Chlorhexidine Gluconate (Hibiclens 4% Top Soln) 1 applic HS TOP Last administered on 06/27/17at 05:56; Start 06/26/17 at 21:00; Stop 06/28/17 at 21:01 ; Status DC Acetaminophen 100 ml @ As Directed STK-MED ONCE IV ; Start 06/27/17 at 07:04; Stop 06/27/17 at 07:05; Status DC Artificial Tears (Lacrilube Opht Oint) 3.5 applic STK-MED ONCE .ROUTE ; Start at 07:05; Stop 06/27/17 at 07:06; Status DC Lidocaine/ Epinephrine (Xylocaine-Epi 1%-1:100,000 Inj) 30 ml STK-MED ONCE .ROUTE ; Start 06/27/17 at 07:32; Stop 06/27/17 at 07:33; Status DC Thrombin (Thrombin Top Soln) 10,000 units STK-MED ONCE .ROUTE ; Start 06/27/17 at 07:32; Stop 06/27/17 at 07:33; Status DC Gelatin (Gelfoam 100 Top) 1 foam STK-MED ONCE .ROUTE ; Start 06/27/17 at 07:32; Stop 06/27/17 at 07:33; Status DC Bacitracin (Baciguent Oint) 15 applic STK-MED ONCE .ROUTE ; Start 06/27/17 at 07 :32; Stop 06/27/17 at 07:33; Status DC Gentamicin Sulfate (Gentamicin Inj) 240 mg STK-MED ONCE .ROUTE ; Start 06/27/17 at 07:33; Stop 06/27/17 at 07:34; Status DC Albuterol Sulfate (Albuterol Neb) 2.5 mg Q2HR NEB PRN NEB dyspnea; Start at 09:15 Labetalol HCl (Trandate Inj) 10 mg Q1HR PRN IV PUSH SBP>160, DBP>90, HR>65 Last administered on 06/30/17at 05:37; Start 06/27/17 at 09:15 Polyethylene Glycol (Miralax) 17 gm ONCE ONCE PO ; Start 06/27/17 at 09:15; Stop 06/27/17 at 09:19; Status DC Polyethylene Glycol (Miralax) 17 gm DAILY PO Last administered on 06/28/17at 08: 31; Start 06/28/17 at 09:00; Stop 06/28/17 at 15:18; Status DC Glycerin (Glycerin Adult Supp) 2 gm ONCE ONCE RECTAL ; Start 06/27/17 at 09:15 ; Stop 06/27/17 at 09:20; Status DC Sodium Chloride (Sodium Chloride) 1 gm ONCE ONCE PO ; Start 06/27/17 at 09:45; Stop 06/27/17 at 10:35; Status DC Propofol (Diprivan 500 Mg/ 50 ml Inj) 100 mg ONCE ONCE IV Last administered on 06/27/17at 11:10; Start 06/27/17 at 11:00; Stop 06/27/17 at 11:01; Status DC Chlorhexidine Gluconate (Peridex 0.12% Liq) 15 ml BID@08,20 MT ; Start 06/27/17 at 20:00; Status Cancel Propofol 100 ml @ 2.073 mls/ hr TITRATE PRN IV SEDATION Last administered on at 13:58; Start 06/27/17 at 11:00 Fentanyl Citrate 250 ml @ 5 mls/hr TITRATE PRN IV SEDATION Last administered on 07/03/17 09:17; Start 06/27/17 at 11:00 Lidocaine HCl (Xylocaine 2% Inj) 100 mg ONCE ONCE IV PUSH Last administered on 06/27/17 13:34; Start 06/27/17 at 11:00; Stop 06/27/17 at 11:01; Status DC Etomidate (Amidate Inj) 40 mg ONCE ONCE IV PUSH Last administered on 13:34; Start 06/27/17 at 11:00; Stop 06/27/17 at 11:01; Status DC Rocuronium [place] (Zemuron Inj) 100 mg BOLUS ONCE IV Last administered on 13:35; Start 06/27/17 at 11:30; Stop 06/27/17 at 11:31; Status DC Lidocaine/ Epinephrine (Xylocaine-Epi 1%-1:100,000 Inj) 30 ml STK-MED ONCE .ROUTE ; Start 06/27/17 at 10:50; Stop 06/27/17 at 10:51; Status DC Rocuronium [place] (Zemuron Inj) 100 mg STK-MED ONCE .ROUTE ; Start 06/27/17 at 10:51; Stop 06/27/17 at 10:52; Status DC Artificial Tears (Tears Naturale Opth Soln) 1 drop Q8HR EACH EYE Last administered on 07/04/17 05:32; Start 06/28/17 at 17:00 Polyethylene Glycol (Miralax) 17 gm BID PO Last administered on 07/02/17 10:18 ; Start 06/28/17 at 21:00 Lactulose (Lactulose Liq) 30 ml QID PO Last administered on 07/01/17 13:08; Start 06/28/17 at 18:00; Stop 07/01/17 at 14:12; Status DC Mineral Oil (Kondremul Liq) 30 ml ONCE ONCE PO Last administered on 06/28/17 16:54; Start 06/28/17 at 17:00; Stop 06/28/17 at 17:01; Status DC Glycerin (Glycerin Adult Supp) 2 gm ONCE ONCE RECTAL Last administered on 3/29 /18at 16:54; Start 06/28/17 at 17:00; Stop 06/28/17 at 17:01; Status DC Methylnaltrexone [place] (Relistor Inj) 12 mg ONCE ONCE SQ Last administered on 06/28/17at 17:20; Start 06/28/17 at 17:00; Stop 06/28/17 at 17:01; Status DC Metoclopramide HCl (Reglan Inj) 5 mg Q8HR IV PUSH Last administered on at 05:31; Start 06/29/17 at 22:00 Methylnaltrexone [place] (Relistor Inj) 12 mg ONCE ONCE SQ Last administered on 06/29/17at 17:14; Start 06/29/17 at 15:15; Stop 06/29/17 at 15:30; Status DC Docusate Sodium (Colace Liq) 100 mg Q12HR PO Last administered on 07/02/17at 20: 11; Start 06/29/17 at 21:00 Sennosides (Senna Liq) 8.8 mg BID PO Last administered on 07/02/17at 10:18; Start 06/29/17 at 21:00 Mineral Oil (Kondremul Liq) 30 ml ONCE ONCE PO Last administered on 06/29/17at 15:15; Start 06/29/17 at 15:15; Stop 06/29/17 at 15:30; Status DC Glycerin (Glycerin Adult Supp) 2 gm ONCE ONCE RECTAL Last administered on 06/29at 15:15; Start 06/29/17 at 15:15; Stop 06/29/17 at 15:30; Status DC Magnesium Citrate (Citroma Liq) 300 ml ONCE ONCE PO ; Start 06/30/17 at 10:45; Stop 06/30/17 at 10:49; Status DC Mineral Oil (Fleet Mineral Oil Enema) 118 ml ONCE ONCE RECTAL ; Start 06/30/17 at 10:45; Stop 06/30/17 at 10:49; Status DC Mineral Oil (Kondremul Liq) 30 ml ONCE ONCE PO ; Start 06/30/17 at 10:45; Stop 06/30/17 at 10:49; Status DC Sodium Phosphate 30 mmol/Sodium Chloride 260 ml @ 43.333 mls/ hr ONCE ONCE IV ; Start 06/30/17 at 12:00; Stop 06/30/17 at 17:59; Status DC Magnesium Sulfate/ Dextrose 100 ml @ 100 mls/hr Q1H IV Last administered on at 11:45; Start 06/30/17 at 10:45; Stop 06/30/17 at 12:44; Status DC Piperacillin Sod/ Tazobactam Sod 100 ml @ 200 mls/hr Q6H IV Last administered on 07/04/17at 10:31; Start 06/30/17 at 11:00 Albuterol/ Ipratropium (Duoneb Neb) 1 ampule Q6HR WHILE AWAKE NEB NEB Last administered on 07/04/17at 13:16; Start 07/01/17 at 20:00 Potassium Chloride (KCl Powder) 20 meq ONCE ONCE PO ; Start 07/02/17 at 22:15; Stop 07/02/17 at 22:16; Status DC Famotidine (Pepcid) 20 mg BID PO Last administered on 07/04/17at 09:31; Start 07/03/17 at 21:00 Folic Acid (Folate) 1 mg DAILY PO Last administered on 07/04/17at 09:34; Start at 09:15 (Andre Nixon MD) Medical Decision Making MDM Remarks 77 y/o female with large hemorrhagic stroke, she had evidence of hydrocephalus, she underwent placement of ventriculostomy drain 06/15/17 due to worsening mental status with improvement of mental status pt did not tolerate clamping of ventriculostomy drain, ventriculostomy drain replaced 06/27/17, 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 Continue mechanical ventilation. Continue mechanical ventilation, aggressive pulmonary toilette, nasotracheal suction, and breathing treatments with nebulizers. Discussed extensively with neurologist, Dr Zabala and with Dr Babin. Daily PT and OT Renal. Continue to monitor closely urine output, BUN and creatinine Endocrine. Continue to Monitor serial Acu checks and SSI as needed in detail ID continue to monitor for signs of infection Continue Protonix for stress ulcer prophylaxis Continue Nickolas hose and SCD's for DVT prophylaxis Further recommendations will be provided depending on the patient's clinical evaluation and follow up studies. The exam, history, and the medical decision-making described in the above note were completed with the assistance of the mid-level provider. I reviewed and agree with the findings presented. I attest that I had a [id number] encounter with the patient on the same day, and personally performed and documented my assessment and findings in the medical record. (Andre Nixon MD) Bell Mooney Jul 02, 2017 08:58 Andre Nixon MD Jul 04, 2017 14:29
[2017-07-02] MEDS: DOCUSATE SODIUM 100 MG/10 ML UDC PO SCH ×2 (10:17→20:11)
[2017-07-02] MEDS: METOPROLOL TARTRATE 25 MG TAB PO SCH ×2 (10:18→20:10)
[2017-07-02] MEDS: FAMOTIDINE 20 MG TAB PO SCH ×2 (10:18→20:10)
[2017-07-02] MEDS: SODIUM CHLORIDE 0.9% FLUSH 10 ML FLUSH IV FLUSH PRN (10:18)
[2017-07-02] MEDS: levETIRAcetam 500 MG TAB PO SCH ×2 (10:18→20:10)
[2017-07-02] MEDS: SENNOSIDES SYRUP 8.8 MG/5 ML CUP PO SCH ×2 (10:18→20:11)
[2017-07-02] MEDS: POLYETHYLENE GLYCOL 17 GM PKG PO SCH ×3 (10:18→20:12)
[2017-07-02 17:46] LABS: PROTEIN C ACTIVITY 129 % (70 - 150); PROTEIN S ACTIVITY 132 % (65 - 160)
[2017-07-02 17:51] LABS: BETA2 GLYCOPROTEIN I AB IGA LESS THAN 9.0 SAU (< OR = 20); BETA2 GLYCOPROTEIN I AB IGG LESS THAN 9.0 SGU (< OR = 20); BETA2 GLYCOPROTEIN I AB IGM LESS THAN 9.0 SMU (< OR = 20)
[2017-07-02 19:52] LABS: FACTOR VIII(8) ACTIVITY 177 (50-180)
[2017-07-02] MEDS: PRAVASTATIN SOD 40 MG TAB PO SCH (20:10)
--- NOTE | 2017-07-02 22:11 | HHI.CCPN ---
Subjective Remarks/Hospital Course Severely dehydrated, elderly woman presents confused to [facility] ED with hypertensive urgency and semi-acute right hemispheric parenchymal brain hemorrhage. Arrived from [facility] on cardene gtt and aphasic. Handness not determined yet. Unable to get ROS. No anticoagulants. INR normal. 06/16: Flaccid left side. Minimal eye opening. Moves right arm and leg to stimulation. Breathes over vent. ICP control, EVD draining well. 06/17: Moving both arms, right much stronger. More alert but episodic apnea spells. 06/18: No events over the night. Patient remains intubated, off sedation. She is currently on pressure support, 01/04, doing well. Awake, following commands. Son present at bedside. T-max of 99.6. I/O 250/1545. 06/19: No events over the night. Patient did well yesterday on pressure support , but was not able to be extubated secondary to no cuff leak. She remains on Cardene currently at 9.5 mg/h. Afebrile with a T-max of 99.4. Negative fluid balance. 06/20: Patient did well over the night. T-max of 100.2. ICP of 4. Thick sputum secretions sent yesterday for culture now growing Staphylococcus. Patient is awake, off sedation following some commands. Off Cardene drip since yesterday. 06/21: Patient did well postextubation and over the night. T-max of 100 yesterday morning. Very good urine output. Patient awake following commands, denying any pain. 06/22: No events over the night. Patient doing well. She is awake and alert, denies headache, nausea, vomiting. No chest pain, no dyspnea, no palpitations. On 2 L nasal cannula. Afebrile over the last 24 hours. Diuresed well post Lasix and she is on negative fluid balance since admission. 06/23: Patient awake, feels better, denies chest pain, shortness of breath, palpitations, headache. Still has productive cough. Afebrile, urine output is adequate. 06/24: No events over the night. Patient afebrile over the last 24 hours. She remains awake, resting in bed, denies any complaints. Sons at bedside. 06/25: Resting comfortably. Drowsy, arousable. EVD at 15cm, drained 60 cc overnight. 06/26: Resting comfortably. Awake and alert. EVD in place drain 10 cc overnight however has some clear fluid draining around ventriculostomy site. Dr. Nixon planning [employer] shunt for tomorrow. 06/27: Afebrile. Less arousable today. Eyes are closed. Subjective left-sided weakness. EVD in place at 20 cm. 4 cc overnight. On cefazolin with clear fluid draining from ventriculostomy site. MRI brain currently pending. 06/28: Afebrile. Intubated yesterday secondary to altered mental status/ aspiration. Arousable and follows commands in the ventilator. 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 Echocardiogram pending. Possibly some right carotid stenosis on carotid ultrasound which does not correlate to this current acute left MCA CVA 06/29: Afebrile. More arousable today. Spontaneously moving left upper extremity. Opens eyes to voice. Not following commands. Tolerating tube feeds at goal. 06/30: Resting in bed in no acute distress. More arousable today. Spontaneously moving left upper extremity. Opens eyes to voice. No bowel movement 07/01: T-max 99.8. Currently 99.3. Opens eyes to voice. Squeezes bilateral hands right greater than left. Not following commands however. Tolerating spontaneous breathing trial Subjective 07/02: T-max 100.1. Currently afebrile. Did not tolerate CPAP trial today. Slightly more responsive today briefly follow commands right greater than left. Tolerating tube feeding. Objective Vital Signs Date Time Temp Pulse Resp B/P (MAP) Pulse Ox O2 Delivery O2 Flow Rate FiO2 07/02/17 19:00 100 Mechanical Ventilator 40 07/02/17 18:00 69 07/02/17 16:00 98.8 20 111/64 (80) 07/01/17 19:00 2.00 Intake and Output 07/02/17 07/02/17 07/03/17 08:00 16:00 00:00 Intake Total 708 ml 860 ml Output Total 830 ml 762 ml Balance -122 ml 98 ml Result Diagram: 07/02/17 0424 07/02/17 0424 Other Results Microbiology Date/Time Source Procedure Growth Status 06/29/17 20:02 Blood Peripheral Aerobic Blood Culture - Preliminary NO GROWTH IN 3 DAYS Resulted 3/30/18 20:02 Blood Peripheral Anaerobic Blood Culture - Preliminary NO GROWTH IN 3 DAYS Resulted 06/27/17 11:20 Cerebral Spinal Fluid Shunt Fluid Gram Stain - Final Complete 06/27/17 11:20 Cerebral Spinal Fluid Shunt Fluid CSF Culture - Final NO GROWTH IN 72 HRS.--AEROBICALLY OR ... Complete 06/30/17 12:30 Sputum Endotracheal Gram Stain - Final Resulted 06/30/17 12:30 Sputum Culture - Preliminary Klebsiella Pneumoniae Gram Negative Cedrick Resulted Imaging Last Impressions Chest X-Ray 07/02/17599 Signed Impressions: Service Date/Time: Sunday, July 02, 2017 04:23 - CONCLUSION: No significant change Harsha Wen MD Abdomen X-Ray 07/01/17599 Signed Impressions: Service Date/Time: Saturday, July 01, 2017 04:18 - CONCLUSION: 1. Nonspecific bowel gas pattern without evidence for obstruction or free air. Ivan Bahena MD Carotid Artery Ultrasound 06/27/17 0000 Signed Impressions: Service Date/Time: Tuesday, June 27, 2017 12:59 - CONCLUSION: 1. Moderate diffuse atherosclerotic plaquing at both carotid bifurcations. 2. Mild elevated velocity in the proximal right internal carotid artery. If clinically indicated , recommend CTA of the carotid arteries for further evaluation. 3. No definite high grade or hemodynamically significant stenosis is demonstrated. David Moore MD Brain MRI 06/27/17 0000 Signed Impressions: Service Date/Time: Tuesday, June 27, 2017 09:23 - CONCLUSION: 1. New development of a nonhemorrhagic acute infarct involving the left occipital lobe. 2. Otherwise, the rest of the exam is stable compared to the prior MRI. David Moore MD Head CT 06/26/17 0000 Signed Impressions: Service Date/Time: Monday, June 26, 2017 10:08 - CONCLUSION: 1. Continued evolution of right cerebral hematoma with slightly increasing surrounding edema. 2. No new hemorrhage identified. 3. Continued ventricular dilatation with no further decompression following placement of ventriculostomy. 4. No significant shift of midline structures. Rene Lomeli MD Head Magnetic Resonance Angiography 06/15/17 0000 Signed Impressions: Service Date/Time: Thursday, June 15, 2017 11:52 - CONCLUSION: MRA within normal limits. There is a parenchymal hemorrhage in the posterior right temporal lobe with intraventricular extension. Ivan Bahena MD Objective Remarks General - 77-year-old female, orotracheally intubated HEENT - pupils are equal and reactive about 2.5-3 mm bilaterally, sclerae are anicteric, neck is supple, neck veins are not distended, Left frontal Russell hole with placement of a ventriculostomy catheter -5 cm H2O, moist mucous membranes CV -RRR. S1, S2 no S 4. No murmurs, rubs or gallops Chest - clear to auscultation bilateral, no wheezes Abdomen - soft, nontender, not distended, BS present Extremities -warm, 1+ edema, + peripheral pulses Neuro -arousable on the ventilator and follows commands. Left gaze preference. , no facial asymmetry, squeezes fingers on both upper extremities but weak left side subjectively weaker than right strength 3 out of 5, wiggles toes to command A/P Assessment and Plan Neuro/Psych: Right posterior temporal/occipital/parietal intra-axial hematoma Left MCA posterior temporal occipital CVA Right complex partial seizure Wernicke aphasia Acute encephalopathy CT brain 06/25 revealed a right occipital parietal intra-axial hematoma with mild surrounding edema. Right ventriculostomy placed 06/27-currently 5 cm H2O. 170 cc blood tinged MRI brain revealed a left MCA CVA involving the left posterior temporal occipital region On levetiracetam 500 mg twice daily for seizure. Acetaminophen 650 mg p.o. every 6 hours as needed fever/pain 1 through 10 MRI brain admission revealed right posterior temporal hemorrhage with ventricular extension MRA brain negative for aneurysm Carotid Dopplers with possible right carotid stenosis. Does not explain acute left MCA CVA. ESR, CRP and hypercoagulable workup pending Followed by Dr. Crowell neurology CV: Hypertensive emergency Dyslipidemia Currently on metoprolol 25 mg by mouth twice daily Currently on pravastatin 40 mg daily/on atorvastatin 40 mg daily at home Holding aspirin 81 mg daily in light of acute hemorrhage 06/29 echo - Normal left ventricular size. Mild concentric left ventricular hypertrophy. The left ventricular systolic function is hyperdynamic with an estimated ejection fraction in the range of 65-70%. Mitral annular calcification is present. There is trace tricuspid valve regurgitation. The estimated pulmonary arterial pressure is 43 mmHg. Resp: Acute respiratory failure secondary to aspiration PRVC 14/450/1.2/5/40 CPAP trials daily Ventilator bundle Albuterol/ipratropium aerosols every 6 hours while awake with albuterol aerosols every 2 hours as needed dyspnea Spontaneous breathing trials daily GI: Hypoalbuminemia Constipation Jevity 1.5 at 50 cc an hour at goal Famotidine 10 mg twice daily for GI prophylaxis Docusate sodium/senna 1 tablet twice daily for bowel regimen. Continue polyethylene glycol 17 g twice daily, : Box catheter if indicated for accurate I's and O's in a critically ill patient. Endo: Sliding scale insulin if indicated to maintain euglycemia Renal: Creatinine currently within normal limits Monitor urine output Accurate I's and O's Heme: Normocytic anemia Monitor CBC daily. Follow trend Hypercoagulable workup currently in process ID: [id number] and and Klebsiella pneumonia Completed cefazolin 2 g IV every 8 hours day #7 Switch to penicillin/tazobactam day #3 Pertinent cultures 06/30 -sputum -gram-negative cedrick/Klebsiella pneumonia 06/29 -blood cultures 2 -no growth 06/18 -staph aureus/Klebsiella pneumonia sputum FEN: Replace electrolytes as clinically indicated MSK: Osteoarthritis/osteoporosis Holding alendronate 70 mg weekly. Resume clinically indicated Access -Utilize peripheral IV. Central line if indicated Prophylaxis -GI -famotidine -DVT -SCD/holding pharmacological prophylaxis in light of left right cerebral hematoma. Initiate when okay with neurosurgery Level 2 follow-up Osman Babin MD Jul 02, 2017 22:11
[2017-07-02] MEDS ORDERED: POTASSIUM CHLORIDE 20 MEQ PWD PACKET PO ONE (22:15)
[2017-07-03] VITALS (18 sets, daily range): BP systolic 117–148; BP diastolic 58–84; PULSE 66–82; RESP 15–29; TEMP 97.7–99.9; O2SAT 97–100
[2017-07-03 03:50] LABS: ACTIVATED PROTEIN C RESISTANCE 4.4 ratio (> OR = 2.1)
[2017-07-03] MEDS: CHLORHEXIDINE GLUCONATE 2 % 1 PACK (2 CLOTHS) TOP SCH (04:00)
[2017-07-03] MEDS: PIPERACIL-TAZO 4.5 GM PREMIX 100 ML IV SCH ×4 (05:25→22:18)
[2017-07-03] MEDS: METOCLOPRAMIDE HCL 10 MG/2 ML VIAL IV PUSH SCH ×3 (05:26→22:17)
[2017-07-03] MEDS: ARTIFICIAL TEARS OPTH SOLN 15 ML BTL EACH EYE SCH ×3 (05:26→22:17)
[2017-07-03 05:45] LABS: BASOPHIL # 0.1 TH/MM3 (0-0.2); BASOPHIL % 0.7 % (0.0-2.0); EOSINOPHIL % 0.4 % (0.0-4.0); HEMATOCRIT 24.4 % (35.0-46.0); HEMOGLOBIN 8.5 GM/DL (11.6-15.3); LYMPH % 17.5 % (9.0-44.0); LYMPHOCYTE # 1.7 TH/MM3 (1.0-4.8); MEAN CELL VOLUME 89.1 FL (80.0-100.0); MEAN CORPUSCULAR HEMOGLOBIN 31.1 PG (27.0-34.0); MEAN CORPUSCULAR HGB CONC 34.9 % (32.0-36.0); MEAN PLATELET VOLUME 8.3 FL (7.0-11.0); MONO % 10.5 % (0.0-8.0); NEUT % 70.9 % (16.0-70.0); PLATELET COUNT 216 TH/MM3 (150-450); RED BLOOD COUNT 2.73 MIL/MM3 (4.00-5.30); RED CELL DISTRIBUTION WIDTH 13.5 % (11.6-17.2); WHITE BLOOD COUNT 9.9 TH/MM3 (4.0-11.0)
[2017-07-03 06:13] LABS: BICARBONATE 28.3 MEQ/L (21.0-32.0); CREATININE 0.98 MG/DL (0.50-1.00)
[2017-07-03] MEDS: RESP: ALBUTEROL 2.5 MG/IPRATROPIUM 0.5 MG NEB (SCH) NEB ×3 (08:00→20:21)
[2017-07-03] MEDS: CHLORHEXIDINE 0.12% (ORAL KIT) 15 ML CUP MT SCH ×2 (08:48→20:10)
[2017-07-03] MEDS: SENNOSIDES SYRUP 8.8 MG/5 ML CUP PO SCH ×2 (08:48→21:00)
[2017-07-03] MEDS: METOPROLOL TARTRATE 25 MG TAB PO SCH ×2 (08:48→22:16)
[2017-07-03] MEDS: DOCUSATE SODIUM 100 MG/10 ML UDC PO SCH ×2 (08:48→21:00)
[2017-07-03] MEDS: levETIRAcetam 500 MG TAB PO SCH ×2 (08:48→22:15)
[2017-07-03] MEDS: FAMOTIDINE 20 MG TAB PO SCH ×2 (08:48→22:16)
[2017-07-03] MEDS: POLYETHYLENE GLYCOL 17 GM PKG PO SCH ×2 (08:48→21:00)
--- NOTE | 2017-07-03 09:12 | HHI.NSPN ---
(Bell Mooney) Note Status Status: Progress Note (Bell Mooney) Interval History Interval History 77 year old female with large hemorrhage stroke with hydrocephalus, worsening mental status, patient became severely obtunded difficult to arouse, she underwent placement of ventriculostomy drain 06/15/1706/16: ventriculostomy draining well, intubated, opening eyes and moving right side spontaneously. 06/18: ventriculostomy draining well, remains intubated, opens eyes, tracks, moves right side, stable left paresis 06/19: ventriculostomy draining well, CSF still bloody, dark red. opens eyes and moves right side spontaneously 06/20: ventriculostomy draining well, still gross bloody CSF, intubated, but opens eyes and gave thumbs up to command 06/25: Awake, ventriculostomy draining, drain raised to 15 cm of water over the weekend with stable ICPs. 06/26: EVD raised to 20 cm H20 yesterday, ICPs remains stable overnight, however appears more lethargic today, minimally opens eyes but falls back asleep. 06/27: MRI Brain this morning with new acute nonhemorrhagic left occipital infarct. 06/28: left ventriculostomy draining well, intubated 07/02: ventriculostomy draining well, remains intubated. ICPs low. 07/03: ICPs stable overnight, intubated, no sedatives, awake, following simple commands. ventriculostomy draining well. (Bell Mooney) Labs, Micro, & Vital Signs Results Date Time Temp Pulse Resp B/P (MAP) Pulse Ox O2 Delivery O2 Flow Rate FiO2 07/03/17 08:20 99 40 07/03/17 08:20 40 07/03/17 06:00 75 07/03/17 04:00 99.9 69 25 148/71 (96) 97 07/03/17 04:00 40 07/03/17 04:00 67 07/03/17 03:53 100 40 07/03/17 02:00 77 07/03/17 00:45 100 40 07/03/17 00:00 77 07/03/17 00:00 98.5 77 20 123/65 (84) 100 07/03/17 00:00 40 07/02/17 22:00 71 07/02/17 22:00 100 40 07/02/17 20:00 98.8 70 18 136/86 (103) 100 07/02/17 20:00 40 07/02/17 20:00 70 07/02/17 19:00 100 Mechanical Ventilator 40 07/02/17 18:00 69 07/02/17 16:09 100 40 07/02/17 16:00 40 07/02/17 16:00 98.8 77 20 111/64 (80) 100 07/02/17 16:00 71 07/02/17 14:00 78 07/02/17 13:02 100 40 07/02/17 12:00 100.1 75 28 121/60 (80) 100 07/02/17 12:00 75 07/02/17 12:00 40 07/02/17 10:00 74 Constitutional Vital Signs Date Time Temp Pulse Resp B/P (MAP) Pulse Ox O2 Delivery O2 Flow Rate FiO2 07/03/17 08:20 99 40 07/03/17 08:20 40 07/03/17 06:00 75 07/03/17 04:00 99.9 69 25 148/71 (96) 97 07/03/17 04:00 40 07/03/17 04:00 67 07/03/17 03:53 100 40 07/03/17 02:00 77 07/03/17 00:45 100 40 07/03/17 00:00 77 07/03/17 00:00 98.5 77 20 123/65 (84) 100 07/03/17 00:00 40 07/02/17 22:00 71 07/02/17 22:00 100 40 07/02/17 20:00 98.8 70 18 136/86 (103) 100 07/02/17 20:00 40 07/02/17 20:00 70 07/02/17 19:00 100 Mechanical Ventilator 40 07/02/17 18:00 69 07/02/17 16:09 100 40 07/02/17 16:00 40 07/02/17 16:00 98.8 77 20 111/64 (80) 100 07/02/17 16:00 71 07/02/17 14:00 78 07/02/17 13:02 100 40 07/02/17 12:00 100.1 75 28 121/60 (80) 100 07/02/17 12:00 75 07/02/17 12:00 40 07/02/17 10:00 74 (Bell Mooney) Review of Systems ROS Limitations: Intubated (Bell Mooney) Physical Exam Ms. Patrick is intubated, no sedative drips. Awake, follows simple commands. Intermittently gagging on ET tube. HEENT: Left ventriculostomy at 5 cm H20 draining blood tinged CSF. ICPs=6 clamped. Site is clean and dry without signs of infection. Nonicteric sclera Cranial Nerves: Pupils equal, round reactive. Gross eoms intact, tracking. Cervical Spine: soft, supple Motor: follows gross movements to LE's to commands, moves upper extremities spontaneously, gave thumbs and squeezed to command. Sensory: withdraws to pain stimuli Heart: regular rate rhythm Lungs: clear (Bell Mooney) Ms. Patrick is intubated. Awake, follows simple commands. Intermittently gagging on ET tube. HEENT: Left ventriculostomy at 5 cm H20 draining blood tinged CSF. ICPs=6 clamped. Site is clean and dry without signs of infection. Nonicteric sclera Cranial Nerves: Pupils equal, round reactive. Gross eoms intact, tracking. Cervical Spine: soft, supple Motor: follows gross movements to LE's to commands, moves upper extremities spontaneously, gave thumbs and squeezed to command. Sensory: withdraws to pain stimuli Heart: regular rate rhythm Lungs: clear (Andre Nixon MD) Medications Current Medications Current Medications Medications (Trade) Dose Ordered Sig/Jose Guadalupe Route PRN Reason Start Time Stop Time Status Last Admin Dose Admin Sodium Chloride (NS Flush) 2 ml UNSCH PRN IV FLUSH FLUSH AFTER USING IV ACCESS 06/15/17 05:15 07/02/17 10:18 Acetaminophen (Tylenol) 650 mg Q6H PRN PO PAIN 1-10 AND/OR FEVER >101F 06/15/17 06:30 06/23/17 20:18 Ondansetron HCl (Zofran Inj) 4 mg Q6H PRN IV PUSH NAUSEA OR VOMITING 06/15/17 06:30 Miscellaneous Information 1 Q361D XX 06/15/17 06:30 06/15/17 06:30 Chlorhexidine Gluconate (Chlorhexidine 2% Cloth) Taper DAILY@04 TOP 06/16/17 04:00 06/12/18 03:59 06/20/17 04:00 Chlorhexidine Gluconate (Chlorhexidine 2% Cloth) 3 pack UNSCH PRN TOP HYGIENIC CARE 06/15/17 06:30 Magnesium Hydroxide (Milk Of Magnesia Liq) 30 ml Q12H PRN PO Mild constipation 06/15/17 06:30 06/22/17 20:58 Sennosides (Senokot) 17.2 mg Q12H PRN PO Moderate constipation 06/15/17 06:30 Bisacodyl (Dulcolax Supp) 10 mg DAILY PRN RECTAL SEVERE CONSITIPATION 06/15/17 06:30 Lactulose (Lactulose Liq) 30 ml DAILY PRN PO SEVERE CONSITIPATION 06/15/17 06:30 06/22/17 20:58 Chlorhexidine Gluconate (Peridex 0.12% Liq) 15 ml BID@08,20 MT 06/15/17 20:00 07/03/17 08:48 Levetriacetam (Keppra) 500 mg Q12HR PO 06/17/17 11:30 07/03/17 08:48 Pravastatin Sodium (Pravachol) 40 mg HS PO 06/18/17 21:00 07/02/17 20:10 Metoprolol Tartrate (Lopressor) 25 mg Q12HR PO 06/19/17 09:00 07/03/17 08:48 Hydralazine HCl (Apresoline Inj) 10 mg Q4H PRN IV PUSH SBP greater than 160 06/20/17 12:30 07/01/17 11:34 Famotidine (Pepcid) 10 mg BID PO 06/25/17 21:00 07/03/17 08:48 Albuterol Sulfate (Albuterol Neb) 2.5 mg Q2HR NEB PRN NEB dyspnea 06/27/17 09:15 Labetalol HCl (Trandate Inj) 10 mg Q1HR PRN IV PUSH SBP>160, DBP>90, HR>65 06/27/17 09:15 06/30/17 05:37 Propofol 100 ml @ 2.073 mls/ hr TITRATE PRN IV SEDATION 06/27/17 11:00 06/28/17 13:58 Fentanyl Citrate 250 ml @ 5 mls/hr TITRATE PRN IV SEDATION 06/27/17 11:00 Artificial Tears (Tears Naturale Opth Soln) 1 drop Q8HR EACH EYE 06/28/17 17:00 07/03/17 05:26 Polyethylene Glycol (Miralax) 17 gm BID PO 06/28/17 21:00 07/02/17 10:18 Metoclopramide HCl (Reglan Inj) 5 mg Q8HR IV PUSH 06/29/17 22:00 07/03/17 05:26 Docusate Sodium (Colace Liq) 100 mg Q12HR PO 06/29/17 21:00 07/02/17 20:11 Sennosides (Senna Liq) 8.8 mg BID PO 06/29/17 21:00 07/02/17 10:18 Piperacillin Sod/ Tazobactam Sod 100 ml @ 200 mls/hr Q6H IV 06/30/17 11:00 07/03/17 05:25 Albuterol/ Ipratropium (Duoneb Neb) 1 ampule Q6HR WHILE AWAKE NEB NEB 07/01/17 20:00 07/03/17 08:00 (Bell Mooney) Current Medications Current Medications Sodium Chloride (NS Flush) 2 ml UNSCH PRN IV FLUSH FLUSH AFTER USING IV ACCESS Last administered on 07/02/17at 10:18; Start 06/15/17 at 05:15 Sodium Chloride 500 ml @ 500 mls/hr BOLUS ONCE IV ; Start 06/15/17 at 06:00; Stop 06/15/17 at 06:59; Status DC Nicardipine HCl 25 mg/Sodium Chloride 250 ml @ 50 mls/hr TITRATE PRN IV Blood pressure management Last administered on 06/19/17at 06:43; Start 06/15/17 at 06: 15; Stop 06/23/17 at 17:33; Status DC Pravastatin Sodium (Pravachol) 80 mg HS PO Last administered on 06/17/17at 23:23 ; Start 06/15/17 at 21:00; Stop 06/18/17 at 09:30; Status DC Levetriacetam 100 ml @ 400 mls/hr BOLUS ONCE IV Last administered on at 09:43; Start 06/15/17 at 06:30; Stop 06/15/17 at 06:44; Status DC Sodium Chloride 1,000 ml @ 100 mls/hr Q10H IV Last administered on 06/17/17at 07:29; Start 06/15/17 at 06:17; Stop 06/17/17 at 12:42; Status DC Acetaminophen (Tylenol) 650 mg Q6H PRN PO PAIN 1-10 AND/OR FEVER >101F Last administered on 06/23/17at 20:18; Start 06/15/17 at 06:30 Morphine Sulfate (Morphine Inj) 2 mg Q2H PRN IV PUSH PAIN SCALE 6 TO 10 Last administered on 06/19/17at 08:29; Start 06/15/17 at 06:30; Stop 06/20/17 at 08:25 ; Status DC Famotidine (Pepcid Inj) 10 mg Q12HR IV PUSH Last administered on 06/25/17at 08: 45; Start 06/15/17 at 09:00; Stop 06/25/17 at 16:28; Status DC Ondansetron HCl (Zofran Inj) 4 mg Q6H PRN IV PUSH NAUSEA OR VOMITING; Start at 06:30 Albuterol/ Ipratropium (Duoneb Neb) 1 ampule Q4HR NEB PRN INH WHEEZING; Start 06/15/17 at 06:30; Stop 06/27/17 at 09:15; Status DC Miscellaneous Information 1 Q361D XX Last administered on 06/15/17at 06:30; Start 06/15/17 at 06:30 Chlorhexidine Gluconate (Chlorhexidine 2% Cloth) Taper DAILY@04 TOP Last administered on 06/20/17at 04:00; Start 06/16/17 at 04:00; Stop 06/12/18 at 03:59 Chlorhexidine Gluconate (Chlorhexidine 2% Cloth) 3 pack UNSCH PRN TOP HYGIENIC CARE; Start 06/15/17 at 06:30 Senna/Docusate Sodium ([place]-Colace) 1 tab BID PO Last administered on 08:00; Start 06/15/17 at 09:00; Stop 06/29/17 at 15:16; Status DC Magnesium Hydroxide (Milk Of Magnesia Liq) 30 ml Q12H PRN PO Mild constipation Last administered on 06/22/17at 20:58; Start 06/15/17 at 06:30 Sennosides (Senokot) 17.2 mg Q12H PRN PO Moderate constipation; Start 06/15/17 at 06:30 Bisacodyl (Dulcolax Supp) 10 mg DAILY PRN RECTAL SEVERE CONSITIPATION; Start at 06:30 Lactulose (Lactulose Liq) 30 ml DAILY PRN PO SEVERE CONSITIPATION Last administered on 06/22/17at 20:58; Start 06/15/17 at 06:30 Rocuronium [place] (Zemuron Inj) 100 mg BOLUS ONCE IV Last administered on at 14:34; Start 06/15/17 at 14:00; Stop 06/15/17 at 14:01; Status DC Midazolam HCl (Versed Inj) 5 mg ONCE ONCE IV PUSH Last administered on at 14:35; Start 06/15/17 at 14:00; Stop 06/15/17 at 14:01; Status DC Chlorhexidine Gluconate (Peridex 0.12% Liq) 15 ml BID@08,20 MT Last administered on 07/04/17at 09:31; Start 06/15/17 at 20:00 Propofol 100 ml @ 0 mls/hr TITRATE PRN IV SEDATION; Start 06/15/17 at 14:00; Status UNV Midazolam HCl (Versed Inj) 5 mg STK-MED ONCE .ROUTE ; Start 06/15/17 at 14:07; Stop 06/15/17 at 14:08; Status DC Rocuronium [place] (Zemuron Inj) 50 mg STK-MED ONCE .ROUTE ; Start 06/15/17 at 14:07; Stop 06/15/17 at 14:08; Status DC Propofol 100 ml @ 1.941 mls/ hr TITRATE PRN IV SEDATION Last administered on at 14:41; Start 06/15/17 at 14:45; Stop 06/21/17 at 14:09; Status DC Miscellaneous Information (RASS Change Order) 1 ea ONCE ONCE XX Last administered on 06/15/17at 14:45; Start 06/15/17 at 14:45; Stop 06/15/17 at 14:46 ; Status DC Norepinephrine Bitartrate 4 mg/ Sodium Chloride 250 ml @ 7.5 mls/hr TITRATE PRN IV Maintain MAP > 70 mmHg; Start 06/15/17 at 19:45; Stop 06/15/17 at 21:37; Status DC Norepinephrine Bitartrate 4 mg/ Sodium Chloride 250 ml @ 7.5 mls/hr TITRATE PRN IV Maintain MAP > 70 mmHg Last administered on 06/15/17at 19:00; Start at 21:45; Stop 06/20/17 at 08:11; Status DC Levetriacetam (Keppra) 500 mg Q12HR PO Last administered on 07/04/17 09:31; Start 06/17/17 at 11:30 Potassium Chloride 20 meq/ Lactated Ringer's 1,010 ml @ 42 mls/hr Q24H IV ; Start 06/17/17 at 12:45; Stop 06/17/17 at 13:02; Status DC Potassium Chloride 10 meq/ Lactated Ringer's 505 ml @ 42 mls/hr Q12H2M IV Last administered on 06/19/17at 22:32; Start 06/17/17 at 13:15; Stop 06/20/17 at 08:13; Status DC Pravastatin Sodium (Pravachol) 40 mg HS PO Last administered on 07/03/17at 22:19 ; Start 06/18/17 at 21:00 Potassium Phosphate 15 mmol/ Sodium Chloride 155 ml @ 38.75 mls/ hr ONCE ONCE IV Last administered on 06/19/17at 08:50; Start 06/19/17 at 08:00; Stop at 11:59; Status DC Metoprolol Tartrate (Lopressor) 25 mg Q12HR PO Last administered on 07/04/17 09 :31; Start 06/19/17 at 09:00 Pharmacy Profile Note 0 ml @ 0 mls/hr UNSCH OTHER ; Start 06/20/17 at 08:15; Stop 06/21/17 at 14:09; Status DC Albuterol/ Ipratropium (Duoneb Neb) 1 ampule Q6HR NEB NEB Last administered on 06/24/17at 07:16; Start 06/20/17 at 10:00; Stop 06/24/17 at 09:59; Status DC Vancomycin HCl 1250 mg/Sodium Chloride 262.5 ml @ 262.5 mls/ hr ONCE ONCE IV Last administered on 06/20/17at 13:29; Start 06/20/17 at 12:00; Stop 06/20/17 at 12:59; Status DC Hydralazine HCl (Apresoline Inj) 10 mg Q4H PRN IV PUSH SBP greater than 160 Last administered on 07/01/17at 11:34; Start 06/20/17 at 12:30 Potassium Phosphate 15 mmol/ Sodium Chloride 155 ml @ 38.75 mls/ hr ONCE ONCE IV Last administered on 06/20/17at 17:05; Start 06/20/17 at 13:45; Stop at 17:44; Status DC Furosemide (Lasix Inj) 40 mg ONCE ONCE IV PUSH Last administered on 06/21/17at 08:53; Start 06/21/17 at 08:30; Stop 06/21/17 at 08:31; Status DC Cefazolin Sodium/ Dextrose 50 ml @ 100 mls/hr Q8H IV Last administered on 06/24at 15:02; Start 06/21/17 at 15:00; Stop 06/24/17 at 21:47; Status DC Cefazolin Sodium 2000 mg/Sodium Chloride 120 ml @ 240 mls/hr Q8H IV Last administered on 06/30/17at 06:06; Start 06/24/17 at 23:00; Stop 06/30/17 at 10:37 ; Status DC Famotidine (Pepcid) 10 mg BID PO Last administered on 07/03/17at 08:48; Start at 21:00; Stop 07/03/17 at 20:13; Status DC Chlorhexidine Gluconate (Hibiclens 4% Top Soln) 1 applic HS TOP Last administered on 06/27/17at 05:56; Start 06/26/17 at 21:00; Stop 06/28/17 at 21:01 ; Status DC Acetaminophen 100 ml @ As Directed STK-MED ONCE IV ; Start 06/27/17 at 07:04; Stop 06/27/17 at 07:05; Status DC Artificial Tears (Lacrilube Opht Oint) 3.5 applic STK-MED ONCE .ROUTE ; Start at 07:05; Stop 06/27/17 at 07:06; Status DC Lidocaine/ Epinephrine (Xylocaine-Epi 1%-1:100,000 Inj) 30 ml STK-MED ONCE .ROUTE ; Start 06/27/17 at 07:32; Stop 06/27/17 at 07:33; Status DC Thrombin (Thrombin Top Soln) 10,000 units STK-MED ONCE .ROUTE ; Start 06/27/17 at 07:32; Stop 06/27/17 at 07:33; Status DC Gelatin (Gelfoam 100 Top) 1 foam STK-MED ONCE .ROUTE ; Start 06/27/17 at 07:32; Stop 06/27/17 at 07:33; Status DC Bacitracin (Baciguent Oint) 15 applic STK-MED ONCE .ROUTE ; Start 06/27/17 at 07 :32; Stop 06/27/17 at 07:33; Status DC Gentamicin Sulfate (Gentamicin Inj) 240 mg STK-MED ONCE .ROUTE ; Start 06/27/17 at 07:33; Stop 06/27/17 at 07:34; Status DC Albuterol Sulfate (Albuterol Neb) 2.5 mg Q2HR NEB PRN NEB dyspnea; Start at 09:15 Labetalol HCl (Trandate Inj) 10 mg Q1HR PRN IV PUSH SBP>160, DBP>90, HR>65 Last administered on 06/30/17at 05:37; Start 06/27/17 at 09:15 Polyethylene Glycol (Miralax) 17 gm ONCE ONCE PO ; Start 06/27/17 at 09:15; Stop 06/27/17 at 09:19; Status DC Polyethylene Glycol (Miralax) 17 gm DAILY PO Last administered on 06/28/17at 08: 31; Start 06/28/17 at 09:00; Stop 06/28/17 at 15:18; Status DC Glycerin (Glycerin Adult Supp) 2 gm ONCE ONCE RECTAL ; Start 06/27/17 at 09:15 ; Stop 06/27/17 at 09:20; Status DC Sodium Chloride (Sodium Chloride) 1 gm ONCE ONCE PO ; Start 06/27/17 at 09:45; Stop 06/27/17 at 10:35; Status DC Propofol (Diprivan 500 Mg/ 50 ml Inj) 100 mg ONCE ONCE IV Last administered on 06/27/17at 11:10; Start 06/27/17 at 11:00; Stop 06/27/17 at 11:01; Status DC Chlorhexidine Gluconate (Peridex 0.12% Liq) 15 ml BID@08,20 MT ; Start 06/27/17 at 20:00; Status Cancel Propofol 100 ml @ 2.073 mls/ hr TITRATE PRN IV SEDATION Last administered on at 13:58; Start 06/27/17 at 11:00 Fentanyl Citrate 250 ml @ 5 mls/hr TITRATE PRN IV SEDATION Last administered on 07/03/17 09:17; Start 06/27/17 at 11:00 Lidocaine HCl (Xylocaine 2% Inj) 100 mg ONCE ONCE IV PUSH Last administered on 06/27/17at 13:34; Start 06/27/17 at 11:00; Stop 06/27/17 at 11:01; Status DC Etomidate (Amidate Inj) 40 mg ONCE ONCE IV PUSH Last administered on at 13:34; Start 06/27/17 at 11:00; Stop 06/27/17 at 11:01; Status DC Rocuronium [place] (Zemuron Inj) 100 mg BOLUS ONCE IV Last administered on at 13:35; Start 06/27/17 at 11:30; Stop 06/27/17 at 11:31; Status DC Lidocaine/ Epinephrine (Xylocaine-Epi 1%-1:100,000 Inj) 30 ml STK-MED ONCE .ROUTE ; Start 06/27/17 at 10:50; Stop 06/27/17 at 10:51; Status DC Rocuronium [place] (Zemuron Inj) 100 mg STK-MED ONCE .ROUTE ; Start 06/27/17 at 10:51; Stop 06/27/17 at 10:52; Status DC Artificial Tears (Tears Naturale Opth Soln) 1 drop Q8HR EACH EYE Last administered on 07/04/17at 05:32; Start 06/28/17 at 17:00 Polyethylene Glycol (Miralax) 17 gm BID PO Last administered on 07/02/17 10:18 ; Start 06/28/17 at 21:00 Lactulose (Lactulose Liq) 30 ml QID PO Last administered on 07/01/17 13:08; Start 06/28/17 at 18:00; Stop 07/01/17 at 14:12; Status DC Mineral Oil (Kondremul Liq) 30 ml ONCE ONCE PO Last administered on 06/28/17 16:54; Start 06/28/17 at 17:00; Stop 06/28/17 at 17:01; Status DC Glycerin (Glycerin Adult Supp) 2 gm ONCE ONCE RECTAL Last administered on 06/28 16:54; Start 06/28/17 at 17:00; Stop 06/28/17 at 17:01; Status DC Methylnaltrexone [place] (Relistor Inj) 12 mg ONCE ONCE SQ Last administered on 06/28/17at 17:20; Start 06/28/17 at 17:00; Stop 06/28/17 at 17:01; Status DC Metoclopramide HCl (Reglan Inj) 5 mg Q8HR IV PUSH Last administered on 14:34; Start 06/29/17 at 22:00 Methylnaltrexone [place] (Relistor Inj) 12 mg ONCE ONCE SQ Last administered on 06/29/17 17:14; Start 06/29/17 at 15:15; Stop 06/29/17 at 15:30; Status DC Docusate Sodium (Colace Liq) 100 mg Q12HR PO Last administered on 07/02/17 20: 11; Start 06/29/17 at 21:00 Sennosides (Senna Liq) 8.8 mg BID PO Last administered on 07/02/17 10:18; Start 06/29/17 at 21:00 Mineral Oil (Kondremul Liq) 30 ml ONCE ONCE PO Last administered on 06/29/17 15:15; Start 06/29/17 at 15:15; Stop 06/29/17 at 15:30; Status DC Glycerin (Glycerin Adult Supp) 2 gm ONCE ONCE RECTAL Last administered on 06/29 15:15; Start 06/29/17 at 15:15; Stop 06/29/17 at 15:30; Status DC Magnesium Citrate (Citroma Liq) 300 ml ONCE ONCE PO ; Start 06/30/17 at 10:45; Stop 06/30/17 at 10:49; Status DC Mineral Oil (Fleet Mineral Oil Enema) 118 ml ONCE ONCE RECTAL ; Start 06/30/17 at 10:45; Stop 06/30/17 at 10:49; Status DC Mineral Oil (Kondremul Liq) 30 ml ONCE ONCE PO ; Start 06/30/17 at 10:45; Stop 06/30/17 at 10:49; Status DC Sodium Phosphate 30 mmol/Sodium Chloride 260 ml @ 43.333 mls/ hr ONCE ONCE IV ; Start 06/30/17 at 12:00; Stop 06/30/17 at 17:59; Status DC Magnesium Sulfate/ Dextrose 100 ml @ 100 mls/hr Q1H IV Last administered on at 11:45; Start 06/30/17 at 10:45; Stop 06/30/17 at 12:44; Status DC Piperacillin Sod/ Tazobactam Sod 100 ml @ 200 mls/hr Q6H IV Last administered on 07/04/17at 10:31; Start 06/30/17 at 11:00 Albuterol/ Ipratropium (Duoneb Neb) 1 ampule Q6HR WHILE AWAKE NEB NEB Last administered on 07/04/17at 13:16; Start 07/01/17 at 20:00 Potassium Chloride (KCl Powder) 20 meq ONCE ONCE PO ; Start 07/02/17 at 22:15; Stop 07/02/17 at 22:16; Status DC Famotidine (Pepcid) 20 mg BID PO Last administered on 07/04/17at 09:31; Start 07/03/17 at 21:00 Folic Acid (Folate) 1 mg DAILY PO Last administered on 07/04/17at 09:34; Start at 09:15 (Ander Nixon MD) Medical Decision Making MDM Remarks 77 y/o female with large hemorrhagic stroke, she had evidence of hydrocephalus, she underwent placement of ventriculostomy drain 06/15/17 due to worsening mental status with improvement of mental status pt did not tolerate clamping of ventriculostomy drain, ventriculostomy drain replaced 3/28/18, 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 Continue draining CSF and monitoring ICP Pulmonary. Continue mechanical ventilation and aggressive pulmonary toilette, nasotracheal suction, and breathing treatments with nebulizers. Discussed extensively with neurologist, Dr Zabala and with Dr Babin. Daily PT and OT Renal. Continue to monitor closely urine output, BUN and creatinine Endocrine. Continue to Monitor serial Acu checks and SSI as needed in detail ID continue to monitor for signs of infection Continue Protonix for stress ulcer prophylaxis Continue Nickolas hose and SCD's for DVT prophylaxis Further recommendations will be provided depending on the patient's clinical evaluation and follow up studies. The exam, history, and the medical decision-making described in the above note were completed with the assistance of the mid-level provider. I reviewed and agree with the findings presented. I attest that I had a [id number] encounter with the patient on the same day, and personally performed and documented my assessment and findings in the medical record (Andre Nixon MD) Bell Mooney Jul 03, 2017 09:12 Andre Nixon MD Jul 04, 2017 15:59
[2017-07-03] MEDS: fentaNYL DRIP 250 ML IV PRN (09:17)
--- NOTE | 2017-07-03 09:36 | HHI.PR ---
Review/Management Diagnosis/Plan: (1) Acute ischemic left MCA stroke ICD Codes: I63.512 - Cerebral infarction due to unspecified occlusion or stenosis of left middle cerebral artery Status: Acute Plan: left posterior mca temp-occipital infarct carotid u/s rt carotid stenosis- doesn't explain infarct mra brain previous nml 06/17 lipids nml hyper coag labs-some normal results thus far but several still pending eeg- no sz activity echo-LVEF 65-70% recs ccm, nsx following challenging management decision with ICH and now Ischemic Infarct. consider antiplatelets when feasible (2) Intracranial hemorrhage ICD Codes: I62.9 - Nontraumatic intracranial hemorrhage, unspecified Status: Acute Plan: rt o-p ich large spontaneous, likely hypertensive mra brain-nml, s/p left vp of technology shunt 06/27 (3) Encephalopathy, metabolic ICD Codes: G93.41 - Metabolic encephalopathy Status: Acute Plan: due to ich (4) Hypertensive emergency ICD Codes: I16.1 - Hypertensive emergency Status: Acute Plan: improved on bp meds (5) CLAYTON (acute kidney injury) ICD Codes: N17.9 - Acute kidney failure, unspecified Status: Acute Subjective Subjective Comments No acute events reported Intubated, difficulty weaning, d/w RN at bedside Active Medications Current Medications Medications (Trade) Dose Ordered Sig/Jose Guadalupe Route Start Time Stop Time Status Last Admin (NS Flush) 2 ml UNSCH PRN IV FLUSH 06/15/17 05:15 07/02/17 10:18 (Tylenol) 650 mg Q6H PRN PO 06/15/17 06:30 06/23/17 20:18 (Zofran Inj) 4 mg Q6H PRN IV PUSH 06/15/17 06:30 Miscellaneous Information 1 Q361D XX 06/15/17 06:30 06/15/17 06:30 (Chlorhexidine 2% Cloth) Taper DAILY@04 TOP 06/16/17 04:00 06/12/18 03:59 06/20/17 04:00 (Chlorhexidine 2% Cloth) 3 pack UNSCH PRN TOP 06/15/17 06:30 (Milk Of Magnesia Liq) 30 ml Q12H PRN PO 06/15/17 06:30 06/22/17 20:58 (Senokot) 17.2 mg Q12H PRN PO 06/15/17 06:30 (Dulcolax Supp) 10 mg DAILY PRN RECTAL 06/15/17 06:30 (Lactulose Liq) 30 ml DAILY PRN PO 06/15/17 06:30 06/22/17 20:58 (Peridex 0.12% Liq) 15 ml BID@08,20 MT 06/15/17 20:00 07/03/17 08:48 (Keppra) 500 mg Q12HR PO 06/17/17 11:30 07/03/17 08:48 (Pravachol) 40 mg HS PO 06/18/17 21:00 07/02/17 20:10 (Lopressor) 25 mg Q12HR PO 06/19/17 09:00 07/03/17 08:48 (Apresoline Inj) 10 mg Q4H PRN IV PUSH 06/20/17 12:30 07/01/17 11:34 (Pepcid) 10 mg BID PO 06/25/17 21:00 07/03/17 08:48 (Albuterol Neb) 2.5 mg Q2HR NEB PRN NEB 06/27/17 09:15 (Trandate Inj) 10 mg Q1HR PRN IV PUSH 06/27/17 09:15 06/30/17 05:37 Propofol 100 ml @ 2.073 mls/ hr TITRATE PRN IV 06/27/17 11:00 06/28/17 13:58 Fentanyl Citrate 250 ml @ 5 mls/hr TITRATE PRN IV 06/27/17 11:00 07/03/17 09:17 (Tears Naturale Opth Soln) 1 drop Q8HR EACH EYE 06/28/17 17:00 07/03/17 05:26 (Miralax) 17 gm BID PO 06/28/17 21:00 07/02/17 10:18 (Reglan Inj) 5 mg Q8HR IV PUSH 06/29/17 22:00 07/03/17 05:26 (Colace Liq) 100 mg Q12HR PO 06/29/17 21:00 07/02/17 20:11 (Senna Liq) 8.8 mg BID PO 06/29/17 21:00 07/02/17 10:18 Piperacillin Sod/ Tazobactam Sod 100 ml @ 200 mls/hr Q6H IV 06/30/17 11:00 07/03/17 05:25 (Duoneb Neb) 1 ampule Q6HR WHILE AWAKE NEB NEB 07/01/17 20:00 07/03/17 08:00 Allergies Allergies Coded Allergies No Known Allergies (Unverified Adverse Reaction, Unknown, 06/15/17) Review of Systems All other ROS: ROS reviewed as documented in chart, Unable to obtain (not verbal at this time) Exam I&O / VS Vital Signs Date Time Temp Pulse Resp B/P (MAP) Pulse Ox O2 Delivery O2 Flow Rate FiO2 07/03/17 08:20 99 40 07/03/17 08:20 40 07/03/17 06:00 75 07/03/17 04:00 99.9 69 25 148/71 (96) 97 07/03/17 04:00 40 07/03/17 04:00 67 07/03/17 03:53 100 40 07/03/17 02:00 77 07/03/17 00:45 100 40 07/03/17 00:00 77 07/03/17 00:00 98.5 77 20 123/65 (84) 100 07/03/17 00:00 40 07/02/17 22:00 71 07/02/17 22:00 100 40 07/02/17 20:00 98.8 70 18 136/86 (103) 100 07/02/17 20:00 40 07/02/17 20:00 70 07/02/17 19:00 100 Mechanical Ventilator 40 07/02/17 18:00 69 07/02/17 16:09 100 40 07/02/17 16:00 40 07/02/17 16:00 98.8 77 20 111/64 (80) 100 07/02/17 16:00 71 07/02/17 14:00 78 07/02/17 13:02 100 40 07/02/17 12:00 100.1 75 28 121/60 (80) 100 07/02/17 12:00 75 07/02/17 12:00 40 07/02/17 10:00 74 Respiratory: Symmetrical expansion Exam Comments Alert. Intubated. Not following commands, opens her eyes spontaneously, no gross gaze preference noted, follows examiner with her eyes but not to command, does spontaneously move all 4 but only moves upwards on command, compressor mechanic strength grossly normal bilaterally, no clonus, no pathologic reflexes Objective Micro and Labs Laboratory Tests Test 07/03/17 04:49 White Blood Count 9.9 Red Blood Count 2.73 Hemoglobin 8.5 Hematocrit 24.4 Mean Corpuscular Volume 89.1 Mean Corpuscular Hemoglobin 31.1 Mean Corpuscular Hemoglobin Concent 34.9 Red Cell Distribution Width 13.5 Platelet Count 216 Mean Platelet Volume 8.3 Neutrophils (%) (Auto) 70.9 Lymphocytes (%) (Auto) 17.5 Monocytes (%) (Auto) 10.5 Eosinophils (%) (Auto) 0.4 Basophils (%) (Auto) 0.7 Neutrophils # (Auto) 7.0 Lymphocytes # (Auto) 1.7 Monocytes # (Auto) 1.0 Eosinophils # (Auto) 0.0 Basophils # (Auto) 0.1 CBC Comment DIFF FINAL Differential Comment Blood Urea Nitrogen 21 Creatinine 0.98 Random Glucose 176 Calcium Level 8.0 Phosphorus Level 3.0 Magnesium Level 2.0 Sodium Level 138 Potassium Level 4.1 Chloride Level 101 Carbon Dioxide Level 28.3 Anion Gap 9 Estimat Glomerular Filtration Rate 55 Date/Time Source Procedure Growth Status 06/29/17 20:02 Blood Peripheral Aerobic Blood Culture - Preliminary NO GROWTH IN 3 DAYS Resulted 06/29/17 20:02 Blood Peripheral Anaerobic Blood Culture - Preliminary NO GROWTH IN 3 DAYS Resulted 06/27/17 11:20 Cerebral Spinal Fluid Shunt Fluid Gram Stain - Final Complete 06/27/17 11:20 Cerebral Spinal Fluid Shunt Fluid CSF Culture - Final NO GROWTH IN 72 HRS.--AEROBICALLY OR ... Complete 06/30/17 12:30 Sputum Endotracheal Gram Stain - Final Complete 06/30/17 12:30 Sputum Culture - Final Klebsiella Pneumoniae Serratia Plymuthica Complete Mio Elmore Jul 03, 2017 09:36
[2017-07-03 11:53] LABS: PHOSPHATIDYLSERINE AB IGA LESS THAN 20.0 U/mL (< 20.0); PHOSPHATIDYLSERINE AB IGG LESS THAN 10.0 U/mL (< 11.0); PHOSPHATIDYLSERINE AB IGM LESS THAN 25.0 U/mL (< 25.0)
[2017-07-03 19:54] LABS: CARDIOLIPIN AB IGA LESS THAN 11.0 APL (0-11)
--- NOTE | 2017-07-03 20:16 | HHI.CCPN ---
Subjective Remarks/Hospital Course Severely dehydrated, elderly woman presents confused to [facility] ED with hypertensive urgency and semi-acute right hemispheric parenchymal brain hemorrhage. Arrived from [facility] on cardene gtt and aphasic. Handness not determined yet. Unable to get ROS. No anticoagulants. INR normal. 06/16: Flaccid left side. Minimal eye opening. Moves right arm and leg to stimulation. Breathes over vent. ICP control, EVD draining well. 06/17: Moving both arms, right much stronger. More alert but episodic apnea spells. 06/18: No events over the night. Patient remains intubated, off sedation. She is currently on pressure support, 01/04, doing well. Awake, following commands. Son present at bedside. T-max of 99.6. I/O 250/1545. 06/19: No events over the night. Patient did well yesterday on pressure support , but was not able to be extubated secondary to no cuff leak. She remains on Cardene currently at 9.5 mg/h. Afebrile with a T-max of 99.4. Negative fluid balance. 06/20: Patient did well over the night. T-max of 100.2. ICP of 4. Thick sputum secretions sent yesterday for culture now growing Staphylococcus. Patient is awake, off sedation following some commands. Off Cardene drip since yesterday. 06/21: Patient did well postextubation and over the night. T-max of 100 yesterday morning. Very good urine output. Patient awake following commands, denying any pain. 06/22: No events over the night. Patient doing well. She is awake and alert, denies headache, nausea, vomiting. No chest pain, no dyspnea, no palpitations. On 2 L nasal cannula. Afebrile over the last 24 hours. Diuresed well post Lasix and she is on negative fluid balance since admission. 06/23: Patient awake, feels better, denies chest pain, shortness of breath, palpitations, headache. Still has productive cough. Afebrile, urine output is adequate. 06/24: No events over the night. Patient afebrile over the last 24 hours. She remains awake, resting in bed, denies any complaints. Sons at bedside. 06/25: Resting comfortably. Drowsy, arousable. EVD at 15cm, drained 60 cc overnight. 06/26: Resting comfortably. Awake and alert. EVD in place drain 10 cc overnight however has some clear fluid draining around ventriculostomy site. Dr. Nixon planning RESIDENT DOCTOR shunt for tomorrow. 06/27: Afebrile. Less arousable today. Eyes are closed. Subjective left-sided weakness. EVD in place at 20 cm. 4 cc overnight. On cefazolin with clear fluid draining from ventriculostomy site. MRI brain currently pending. 06/28: Afebrile. Intubated yesterday secondary to altered mental status/ aspiration. Arousable and follows commands in the ventilator. 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 Echocardiogram pending. Possibly some right carotid stenosis on carotid ultrasound which does not correlate to this current acute left MCA CVA 06/29: Afebrile. More arousable today. Spontaneously moving left upper extremity. Opens eyes to voice. Not following commands. Tolerating tube feeds at goal. 06/30: Resting in bed in no acute distress. More arousable today. Spontaneously moving left upper extremity. Opens eyes to voice. No bowel movement 07/01: T-max 99.8. Currently 99.3. Opens eyes to voice. Squeezes bilateral hands right greater than left. Not following commands however. Tolerating spontaneous breathing trial 07/02: T-max 100.1. Currently afebrile. Did not tolerate CPAP trial today. Slightly more responsive today briefly follow commands right greater than left. Tolerating tube feeding. Subjective 07/03: Tolerating CPAP trial today. T-max 100.1. Currently 98.5. 2 bowel movements. More arousable and alert today Objective Vital Signs Date Time Temp Pulse Resp B/P (MAP) Pulse Ox O2 Delivery O2 Flow Rate FiO2 07/03/17 18:00 68 07/03/17 16:38 100 40 07/03/17 16:00 98.4 15 120/58 (78) 07/03/17 08:00 Mechanical Ventilator 07/01/17 19:00 2.00 Intake and Output 07/03/17 07/03/17 07/04/17 08:00 16:00 00:00 Intake Total 727 ml 682 ml Output Total 800 ml 1175 ml Balance -73 ml -493 ml Result Diagram: 07/03/17 0449 07/03/17 0449 Other Results Microbiology Date/Time Source Procedure Growth Status 06/29/17 20:02 Blood Peripheral Aerobic Blood Culture - Preliminary NO GROWTH IN 4 DAYS Resulted 06/29/17 20:02 Blood Peripheral Anaerobic Blood Culture - Preliminary NO GROWTH IN 4 DAYS Resulted 06/27/17 11:20 Cerebral Spinal Fluid Shunt Fluid Gram Stain - Final Complete 06/27/17 11:20 Cerebral Spinal Fluid Shunt Fluid CSF Culture - Final NO GROWTH IN 72 HRS.--AEROBICALLY OR ... Complete 06/30/17 12:30 Sputum Endotracheal Gram Stain - Final Complete 06/30/17 12:30 Sputum Culture - Final Klebsiella Pneumoniae Serratia Plymuthica Complete Imaging Last Impressions Chest X-Ray 07/02/17599 Signed Impressions: Service Date/Time: Sunday, July 02, 2017 04:23 - CONCLUSION: No significant change Harsha Wen MD Abdomen X-Ray 07/01/17599 Signed Impressions: Service Date/Time: Saturday, July 01, 2017 04:18 - CONCLUSION: 1. Nonspecific bowel gas pattern without evidence for obstruction or free air. Ivan Bahena MD Carotid Artery Ultrasound 06/27/17 0000 Signed Impressions: Service Date/Time: Tuesday, June 27, 2017 12:59 - CONCLUSION: 1. Moderate diffuse atherosclerotic plaquing at both carotid bifurcations. 2. Mild elevated velocity in the proximal right internal carotid artery. If clinically indicated , recommend CTA of the carotid arteries for further evaluation. 3. No definite high grade or hemodynamically significant stenosis is demonstrated. David Moore MD Brain MRI 06/27/17 0000 Signed Impressions: Service Date/Time: Tuesday, June 27, 2017 09:23 - CONCLUSION: 1. New development of a nonhemorrhagic acute infarct involving the left occipital lobe. 2. Otherwise, the rest of the exam is stable compared to the prior MRI. David Moore MD Head CT 06/26/17 0000 Signed Impressions: Service Date/Time: Monday, June 26, 2017 10:08 - CONCLUSION: 1. Continued evolution of right cerebral hematoma with slightly increasing surrounding edema. 2. No new hemorrhage identified. 3. Continued ventricular dilatation with no further decompression following placement of ventriculostomy. 4. No significant shift of midline structures. Rene Lomeli MD Head Magnetic Resonance Angiography 06/15/17 0000 Signed Impressions: Service Date/Time: Thursday, June 15, 2017 11:52 - CONCLUSION: MRA within normal limits. There is a parenchymal hemorrhage in the posterior right temporal lobe with intraventricular extension. Ivan Bahena MD Objective Remarks General - 77-year-old female, orotracheally intubated HEENT - pupils are equal and reactive about 2.5-3 mm bilaterally, sclerae are anicteric, neck is supple, neck veins are not distended, Left frontal Russell hole with placement of a ventriculostomy catheter -5 cm H2O, moist mucous membranes CV -RRR. S1, S2 no S 4. No murmurs, rubs or gallops Chest - clear to auscultation bilateral, no wheezes Abdomen - soft, nontender, not distended, BS present Extremities -warm, 1+ edema, + peripheral pulses Neuro -arousable on the ventilator and follows commands. Left gaze preference. , no facial asymmetry, squeezes fingers on both upper extremities but weak left side subjectively weaker than right strength 3 out of 5, wiggles toes to command Urinary Catheter: Yes Assessment to: Continue Box insert reason: Prolonged Immobilization Vascular Central Line Catheter: No Assessment to: Continue A/P Assessment and Plan Neuro/Psych: Right posterior temporal/occipital/parietal intra-axial hematoma Left MCA posterior temporal occipital CVA Right complex partial seizure Wernicke aphasia Acute encephalopathy Currently on fentanyl drip at 25 mg an hour for sedation while CPAP CT brain 06/25 revealed a right occipital parietal intra-axial hematoma with mild surrounding edema. Right ventriculostomy placed 06/27-currently 5 cm H2O. 175 cc blood tinged MRI brain revealed a left MCA CVA involving the left posterior temporal occipital region On levetiracetam 500 mg twice daily for seizure. Acetaminophen 650 mg p.o. every 6 hours as needed fever/pain 1 through 10 MRI brain admission revealed right posterior temporal hemorrhage with ventricular extension MRA brain negative for aneurysm Carotid Dopplers with possible right carotid stenosis. Does not explain acute left MCA CVA. ESR, CRP and hypercoagulable workup pending Followed by Dr. Crowell neurology CV: Hypertensive emergency Dyslipidemia Currently on metoprolol 25 mg by mouth twice daily Currently on pravastatin 40 mg daily/on atorvastatin 40 mg daily at home Holding aspirin 81 mg daily in light of acute hemorrhage 06/29 echo - Normal left ventricular size. Mild concentric left ventricular hypertrophy. The left ventricular systolic function is hyperdynamic with an estimated ejection fraction in the range of 65-70%. Mitral annular calcification is present. There is trace tricuspid valve regurgitation. The estimated pulmonary arterial pressure is 43 mmHg. Resp: Acute respiratory failure secondary to aspiration PRVC 14/450/1.2/5/40 CPAP trials daily Ventilator bundle Albuterol/ipratropium aerosols every 6 hours while awake with albuterol aerosols every 2 hours as needed dyspnea Spontaneous breathing trials daily GI: Hypoalbuminemia Constipation Jevity 1.5 at 50 cc an hour at goal Famotidine 20 mg twice daily for GI prophylaxis Docusate sodium/senna 1 tablet twice daily for bowel regimen. Continue polyethylene glycol 17 g twice daily, : Box catheter if indicated for accurate I's and O's in a critically ill patient. Endo: Sliding scale insulin if indicated to maintain euglycemia Renal: Creatinine currently within normal limits Monitor urine output Accurate I's and O's Heme: Normocytic anemia Monitor CBC daily. Follow trend Hypercoagulable workup currently in process ID: Serratia plymithica, MSSA and Klebsiella pneumonia Completed cefazolin 2 g IV every 8 hours day #7 Switch to penicillin/tazobactam day #4 Pertinent cultures 06/30 -sputum -Serratia Plymithica/Klebsiella pneumonia 06/29 -blood cultures 2 -no growth 06/18 -staph aureus/Klebsiella pneumonia sputum FEN: Replace electrolytes as clinically indicated MSK: Osteoarthritis/osteoporosis Holding alendronate 70 mg weekly. Resume clinically indicated Access -Utilize peripheral IV. Central line if indicated Prophylaxis -GI -famotidine -DVT -SCD/holding pharmacological prophylaxis in light of cerebral hematoma. Initiate when okay with neurosurgery Level 2 follow-up Osman Babin MD Jul 03, 2017 20:16
[2017-07-03] MEDS: PRAVASTATIN SOD 40 MG TAB PO SCH (22:19)
[2017-07-04] VITALS (17 sets, daily range): BP systolic 119–157; BP diastolic 61–85; PULSE 64–78; RESP 14–28; TEMP 98.1–98.7; O2SAT 100
[2017-07-04 03:48] LABS: ANTI-THROMBIN III ACT 127 (80-120)
[2017-07-04] MEDS: CHLORHEXIDINE GLUCONATE 2 % 1 PACK (2 CLOTHS) TOP SCH (04:00)
[2017-07-04] MEDS: PIPERACIL-TAZO 4.5 GM PREMIX 100 ML IV SCH ×4 (05:12→23:06)
[2017-07-04] MEDS: METOCLOPRAMIDE HCL 10 MG/2 ML VIAL IV PUSH SCH ×3 (05:31→22:00)
[2017-07-04] MEDS: ARTIFICIAL TEARS OPTH SOLN 15 ML BTL EACH EYE SCH ×3 (05:32→23:08)
[2017-07-04] MEDS: RESP: ALBUTEROL 2.5 MG/IPRATROPIUM 0.5 MG NEB (SCH) NEB ×3 (07:42→20:00)
[2017-07-04 07:51] LABS: DRVVT 1:1 MIX ND (CORRECTED); DRVVT MIX CONFIRM ND (()); HEXAGONAL PHASE CONFIRM ND (NEGATIVE)
[2017-07-04] MEDS: SENNOSIDES SYRUP 8.8 MG/5 ML CUP PO SCH ×2 (09:00→21:00)
[2017-07-04] MEDS: DOCUSATE SODIUM 100 MG/10 ML UDC PO SCH ×2 (09:00→21:00)
[2017-07-04] MEDS: POLYETHYLENE GLYCOL 17 GM PKG PO SCH ×2 (09:00→21:00)
--- NOTE | 2017-07-04 09:10 | HHI.PR ---
Review/Management Diagnosis/Plan: (1) Acute ischemic left MCA stroke ICD Codes: I63.512 - Cerebral infarction due to unspecified occlusion or stenosis of left middle cerebral artery Status: Acute Plan: left posterior mca temp-occipital infarct carotid u/s rt carotid stenosis- doesn't explain infarct mra brain previous nml 06/17 lipids nml hyper coag labs-antithrombin 3 slightly elevated. elevated homocysteine eeg- no sz activity echo-LVEF 65-70% recs neuro improved. not consistently following extubation per ccm folic acid supplementation for hyperhomocysteinemia ccm, nsx following challenging management decision with ICH and now Ischemic Infarct. consider antiplatelets when feasible (2) Intracranial hemorrhage ICD Codes: I62.9 - Nontraumatic intracranial hemorrhage, unspecified Status: Acute Plan: rt o-p ich large spontaneous, likely hypertensive mra brain-nml, s/p left vp celebrity services shunt 06/27 (3) Encephalopathy, metabolic ICD Codes: G93.41 - Metabolic encephalopathy Status: Acute Plan: due to ich (4) Hypertensive emergency ICD Codes: I16.1 - Hypertensive emergency Status: Acute Plan: improved on bp meds (5) C[place] (acute kidney injury) ICD Codes: N17.9 - Acute kidney failure, unspecified Status: Acute Subjective Subjective Comments No acute events reported Active Medications Current Medications Medications (Trade) Dose Ordered Sig/Jose Guadalupe Route Start Time Stop Time Status Last Admin (NS Flush) 2 ml UNSCH PRN IV FLUSH 06/15/17 05:15 07/02/17 10:18 (Tylenol) 650 mg Q6H PRN PO 06/15/17 06:30 06/23/17 20:18 (Zofran Inj) 4 mg Q6H PRN IV PUSH 06/15/17 06:30 Miscellaneous Information 1 Q361D XX 06/15/17 06:30 06/15/17 06:30 (Chlorhexidine 2% Cloth) Taper DAILY@04 TOP 06/16/17 04:00 06/12/18 03:59 06/20/17 04:00 (Chlorhexidine 2% Cloth) 3 pack UNSCH PRN TOP 06/15/17 06:30 (Milk Of Magnesia Liq) 30 ml Q12H PRN PO 06/15/17 06:30 06/22/17 20:58 (Senokot) 17.2 mg Q12H PRN PO 06/15/17 06:30 (Dulcolax Supp) 10 mg DAILY PRN RECTAL 06/15/17 06:30 (Lactulose Liq) 30 ml DAILY PRN PO 06/15/17 06:30 06/22/17 20:58 (Peridex 0.12% Liq) 15 ml BID@08,20 MT 06/15/17 20:00 07/03/17 20:10 (Keppra) 500 mg Q12HR PO 06/17/17 11:30 07/03/17 22:15 (Pravachol) 40 mg HS PO 06/18/17 21:00 07/03/17 22:19 (Lopressor) 25 mg Q12HR PO 06/19/17 09:00 07/03/17 22:16 (Apresoline Inj) 10 mg Q4H PRN IV PUSH 06/20/17 12:30 07/01/17 11:34 (Albuterol Neb) 2.5 mg Q2HR NEB PRN NEB 06/27/17 09:15 (Trandate Inj) 10 mg Q1HR PRN IV PUSH 06/27/17 09:15 06/30/17 05:37 Propofol 100 ml @ 2.073 mls/ hr TITRATE PRN IV 06/27/17 11:00 06/28/17 13:58 Fentanyl Citrate 250 ml @ 5 mls/hr TITRATE PRN IV 06/27/17 11:00 07/03/17 09:17 (Tears Naturale Opth Soln) 1 drop Q8HR EACH EYE 06/28/17 17:00 07/04/17 05:32 (Miralax) 17 gm BID PO 06/28/17 21:00 07/02/17 10:18 (Reglan Inj) 5 mg Q8HR IV PUSH 06/29/17 22:00 07/04/17 05:31 (Colace Liq) 100 mg Q12HR PO 06/29/17 21:00 07/02/17 20:11 (Senna Liq) 8.8 mg BID PO 06/29/17 21:00 07/02/17 10:18 Piperacillin Sod/ Tazobactam Sod 100 ml @ 200 mls/hr Q6H IV 06/30/17 11:00 07/04/17 05:12 (Duoneb Neb) 1 ampule Q6HR WHILE AWAKE NEB NEB 07/01/17 20:00 07/04/17 07:42 (Pepcid) 20 mg BID PO 07/03/17 21:00 07/03/17 22:16 Allergies Allergies Coded Allergies No Known Allergies (Unverified Adverse Reaction, Unknown, 06/15/17) Review of Systems All other ROS: ROS reviewed as documented in chart, Unable to obtain (not verbal at this time) Exam I&O / VS Vital Signs Date Time Temp Pulse Resp B/P (MAP) Pulse Ox O2 Delivery O2 Flow Rate FiO2 07/04/17 08:00 40 07/04/17 08:00 98.1 66 14 133/67 (89) 100 07/04/17 08:00 66 07/04/17 08:00 100 Mechanical Ventilator 40 07/04/17 07:52 40 07/04/17 07:42 100 40 07/04/17 06:00 64 07/04/17 05:01 100 40 07/04/17 04:00 40 07/04/17 04:00 64 07/04/17 04:00 98.4 64 14 119/61 (80) 100 07/04/17 02:00 65 07/04/17 01:42 100 40 07/04/17 00:00 67 07/04/17 00:00 40 07/04/17 00:00 98.7 67 26 157/85 (109) 100 07/03/17 22:00 70 07/03/17 20:21 98 40 07/03/17 20:00 98.6 70 22 124/59 (80) 100 07/03/17 20:00 40 07/03/17 20:00 70 07/03/17 19:00 100 Mechanical Ventilator 2.00 40 07/03/17 18:00 68 07/03/17 16:38 100 40 07/03/17 16:00 98.4 71 15 120/58 (78) 100 07/03/17 16:00 40 07/03/17 16:00 71 07/03/17 14:00 72 07/03/17 12:40 100 40 07/03/17 12:00 66 07/03/17 12:00 97.7 66 29 119/84 (96) 98 07/03/17 12:00 40 07/03/17 10:00 68 Respiratory: Symmetrical expansion Exam Comments intubated, alert, not following,, ou 2-1.5mm, moves left side, rt side improved appears to able to overcome gravity but in restraint Objective Micro and Labs Date/Time Source Procedure Growth Status 06/29/17 20:02 Blood Peripheral Aerobic Blood Culture - Preliminary NO GROWTH IN 4 DAYS Resulted 06/29/17 20:02 Blood Peripheral Anaerobic Blood Culture - Preliminary NO GROWTH IN 4 DAYS Resulted 06/27/17 11:20 Cerebral Spinal Fluid Shunt Fluid Gram Stain - Final Complete 06/27/17 11:20 Cerebral Spinal Fluid Shunt Fluid CSF Culture - Final NO GROWTH IN 72 HRS.--AEROBICALLY OR ... Complete 06/30/17 12:30 Sputum Endotracheal Gram Stain - Final Complete 06/30/17 12:30 Sputum Culture - Final Klebsiella Pneumoniae Serratia Plymuthica Complete Jose Cruz Crowell MD Jul 04, 2017 09:10
[2017-07-04] MEDS: METOPROLOL TARTRATE 25 MG TAB PO SCH ×2 (09:31→21:00)
[2017-07-04] MEDS: FAMOTIDINE 20 MG TAB PO SCH ×2 (09:31→21:00)
[2017-07-04] MEDS: levETIRAcetam 500 MG TAB PO SCH ×2 (09:31→21:00)
[2017-07-04] MEDS: CHLORHEXIDINE 0.12% (ORAL KIT) 15 ML CUP MT SCH ×2 (09:31→20:00)
[2017-07-04] MEDS: FOLIC ACID 1 MG TAB PO SCH (09:34)
--- NOTE | 2017-07-04 10:07 | HHI.NSPN ---
(Bell Mooney) Note Status Status: Progress Note (Bell Mooney) Interval History Interval History 77 year old female with large hemorrhage stroke with hydrocephalus, worsening mental status, patient became severely obtunded difficult to arouse, she underwent placement of ventriculostomy drain 06/15/1706/16: ventriculostomy draining well, intubated, opening eyes and moving right side spontaneously. 06/18: ventriculostomy draining well, remains intubated, opens eyes, tracks, moves right side, stable left paresis 06/19: ventriculostomy draining well, CSF still bloody, dark red. opens eyes and moves right side spontaneously 06/20: ventriculostomy draining well, still gross bloody CSF, intubated, but opens eyes and gave thumbs up to command 06/25: Awake, ventriculostomy draining, drain raised to 15 cm of water over the weekend with stable ICPs. 06/26: EVD raised to 20 cm H20 yesterday, ICPs remains stable overnight, however appears more lethargic today, minimally opens eyes but falls back asleep. 06/27: MRI Brain this morning with new acute nonhemorrhagic left occipital infarct. 06/28: left ventriculostomy draining well, intubated 07/02: ventriculostomy draining well, remains intubated. ICPs low. 07/03: ICPs stable overnight, intubated, no sedatives, awake, following simple commands. ventriculostomy draining well. 07/04: remains awake, alert, follows commands. still intubated. ventriculostomy draining well, ICPs controlled overnight. (Bell Mooeny) Labs, Micro, & Vital Signs Results Date Time Temp Pulse Resp B/P (MAP) Pulse Ox O2 Delivery O2 Flow Rate FiO2 07/04/17 08:00 40 07/04/17 08:00 98.1 66 14 133/67 (89) 100 07/04/17 08:00 66 07/04/17 08:00 100 Mechanical Ventilator 40 07/04/17 07:52 40 07/04/17 07:42 100 40 07/04/17 06:00 64 07/04/17 05:01 100 40 07/04/17 04:00 40 07/04/17 04:00 64 07/04/17 04:00 98.4 64 14 119/61 (80) 100 07/04/17 02:00 65 07/04/17 01:42 100 40 07/04/17 00:00 67 07/04/17 00:00 40 07/04/17 00:00 98.7 67 26 157/85 (109) 100 07/03/17 22:00 70 07/03/17 20:21 98 40 07/03/17 20:00 98.6 70 22 124/59 (80) 100 07/03/17 20:00 40 07/03/17 20:00 70 07/03/17 19:00 100 Mechanical Ventilator 2.00 40 07/03/17 18:00 68 07/03/17 16:38 100 40 07/03/17 16:00 98.4 71 15 120/58 (78) 100 07/03/17 16:00 40 07/03/17 16:00 71 07/03/17 14:00 72 07/03/17 12:40 100 40 07/03/17 12:00 66 07/03/17 12:00 97.7 66 29 119/84 (96) 98 07/03/17 12:00 40 Constitutional Vital Signs Date Time Temp Pulse Resp B/P (MAP) Pulse Ox O2 Delivery O2 Flow Rate FiO2 07/04/17 08:00 40 07/04/17 08:00 98.1 66 14 133/67 (89) 100 07/04/17 08:00 66 07/04/17 08:00 100 Mechanical Ventilator 40 07/04/17 07:52 40 07/04/17 07:42 100 40 07/04/17 06:00 64 07/04/17 05:01 100 40 07/04/17 04:00 40 07/04/17 04:00 64 07/04/17 04:00 98.4 64 14 119/61 (80) 100 07/04/17 02:00 65 07/04/17 01:42 100 40 07/04/17 00:00 67 07/04/17 00:00 40 07/04/17 00:00 98.7 67 26 157/85 (109) 100 07/03/17 22:00 70 418 20:21 98 40 07/03/17 20:00 98.6 70 22 124/59 (80) 100 07/03/17 20:00 40 18 20:00 70 18 19:00 100 Mechanical Ventilator 2.00 40 18 18:00 68 18 16:38 100 40 07/03/17 16:00 98.4 71 15 120/58 (78) 100 07/03/17 16:00 40 07/03/17 16:00 71 07/03/17 14:00 72 07/03/17 12:40 100 40 07/03/17 12:00 66 07/03/17 12:00 97.7 66 29 119/84 (96) 98 07/03/17 12:00 40 (Bell Mooney) Physical Exam Ms. Patrick is intubated, no sedative drips. Awake, follows simple commands. Intermittently gagging on ET tube. HEENT: Left ventriculostomy at 5 cm H20 draining blood tinged CSF. ICPs=6 clamped. Site is clean and dry without signs of infection. Nonicteric sclera Cranial Nerves: Pupils equal, round reactive. Gross eoms intact, tracking. Cervical Spine: soft, supple Motor: moves all four extremities spontaneously and purposefully. Sensory: withdraws to pain stimuli Heart: regular rate rhythm Lungs: clear (Bell Mooney) Ms. Patrick is intubated, no sedative drips. Awake, follows simple commands. Intermittently gagging on ET tube. HEENT: Left ventriculostomy at 5 cm H20 draining blood tinged CSF. ICPs=6 clamped. Site is clean and dry without signs of infection. Nonicteric sclera Cranial Nerves: Pupils equal, round reactive. Gross eoms intact, tracking. Cervical Spine: soft, supple Motor: moves all four extremities spontaneously and purposefully. Sensory: withdraws to pain stimuli Heart: regular rate rhythm Lungs: clear (Andre Nixon MD) Medications Current Medications Current Medications Medications (Trade) Dose Ordered Sig/Jose Guadalupe Route PRN Reason Start Time Stop Time Status Last Admin Dose Admin Sodium Chloride (NS Flush) 2 ml UNSCH PRN IV FLUSH FLUSH AFTER USING IV ACCESS 3/16/18 05:15 07/02/17 10:18 Acetaminophen (Tylenol) 650 mg Q6H PRN PO PAIN 1-10 AND/OR FEVER >101F 06/15/17 06:30 06/23/17 20:18 Ondansetron HCl (Zofran Inj) 4 mg Q6H PRN IV PUSH NAUSEA OR VOMITING 06/15/17 06:30 Miscellaneous Information 1 Q361D XX 06/15/17 06:30 06/15/17 06:30 Chlorhexidine Gluconate (Chlorhexidine 2% Cloth) Taper DAILY@04 TOP 06/16/17 04:00 06/12/18 03:59 06/20/17 04:00 Chlorhexidine Gluconate (Chlorhexidine 2% Cloth) 3 pack UNSCH PRN TOP HYGIENIC CARE 06/15/17 06:30 Magnesium Hydroxide (Milk Of Magnesia Liq) 30 ml Q12H PRN PO Mild constipation 06/15/17 06:30 06/22/17 20:58 Sennosides (Senokot) 17.2 mg Q12H PRN PO Moderate constipation 06/15/17 06:30 Bisacodyl (Dulcolax Supp) 10 mg DAILY PRN RECTAL SEVERE CONSITIPATION 06/15/17 06:30 Lactulose (Lactulose Liq) 30 ml DAILY PRN PO SEVERE CONSITIPATION 06/15/17 06:30 06/22/17 20:58 Chlorhexidine Gluconate (Peridex 0.12% Liq) 15 ml BID@08,20 MT 06/15/17 20:00 07/04/17 09:31 Levetriacetam (Keppra) 500 mg Q12HR PO 06/17/17 11:30 07/04/17 09:31 Pravastatin Sodium (Pravachol) 40 mg HS PO 06/18/17 21:00 07/03/17 22:19 Metoprolol Tartrate (Lopressor) 25 mg Q12HR PO 06/19/17 09:00 07/04/17 09:31 Hydralazine HCl (Apresoline Inj) 10 mg Q4H PRN IV PUSH SBP greater than 160 06/20/17 12:30 07/01/17 11:34 Albuterol Sulfate (Albuterol Neb) 2.5 mg Q2HR NEB PRN NEB dyspnea 06/27/17 09:15 Labetalol HCl (Trandate Inj) 10 mg Q1HR PRN IV PUSH SBP>160, DBP>90, HR>65 06/27/17 09:15 06/30/17 05:37 Propofol 100 ml @ 2.073 mls/ hr TITRATE PRN IV SEDATION 06/27/17 11:00 06/28/17 13:58 Fentanyl Citrate 250 ml @ 5 mls/hr TITRATE PRN IV SEDATION 06/27/17 11:00 07/03/17 09:17 Artificial Tears (Tears Naturale Opth Soln) 1 drop Q8HR EACH EYE 06/28/17 17:00 07/04/17 05:32 Polyethylene Glycol (Miralax) 17 gm BID PO 06/28/17 21:00 07/02/17 10:18 Metoclopramide HCl (Reglan Inj) 5 mg Q8HR IV PUSH 06/29/17 22:00 07/04/17 05:31 Docusate Sodium (Colace Liq) 100 mg Q12HR PO 06/29/17 21:00 07/02/17 20:11 Sennosides (Senna Liq) 8.8 mg BID PO 06/29/17 21:00 07/02/17 10:18 Piperacillin Sod/ Tazobactam Sod 100 ml @ 200 mls/hr Q6H IV 06/30/17 11:00 07/04/17 05:12 Albuterol/ Ipratropium (Duoneb Neb) 1 ampule Q6HR WHILE AWAKE NEB NEB 07/01/17 20:00 07/04/17 07:42 Famotidine (Pepcid) 20 mg BID PO 07/03/17 21:00 07/04/17 09:31 Folic Acid (Folate) 1 mg DAILY PO 07/04/17 09:15 07/04/17 09:34 (Bell Mooney) Current Medications Current Medications Sodium Chloride (NS Flush) 2 ml UNSCH PRN IV FLUSH FLUSH AFTER USING IV ACCESS Last administered on 07/02/17at 10:18; Start 06/15/17 at 05:15 Sodium Chloride 500 ml @ 500 mls/hr BOLUS ONCE IV ; Start 06/15/17 at 06:00; Stop 06/15/17 at 06:59; Status DC Nicardipine HCl 25 mg/Sodium Chloride 250 ml @ 50 mls/hr TITRATE PRN IV Blood pressure management Last administered on 06/19/17at 06:43; Start 06/15/17 at 06: 15; Stop 06/23/17 at 17:33; Status DC Pravastatin Sodium (Pravachol) 80 mg HS PO Last administered on 06/17/17at 23:23 ; Start 06/15/17 at 21:00; Stop 06/18/17 at 09:30; Status DC Levetriacetam 100 ml @ 400 mls/hr BOLUS ONCE IV Last administered on at 09:43; Start 06/15/17 at 06:30; Stop 06/15/17 at 06:44; Status DC Sodium Chloride 1,000 ml @ 100 mls/hr Q10H IV Last administered on 06/17/17at 07:29; Start 06/15/17 at 06:17; Stop 06/17/17 at 12:42; Status DC Acetaminophen (Tylenol) 650 mg Q6H PRN PO PAIN 1-10 AND/OR FEVER >101F Last administered on 06/23/17at 20:18; Start 06/15/17 at 06:30; Stop 07/06/17 at 13:27 ; Status DC Morphine Sulfate (Morphine Inj) 2 mg Q2H PRN IV PUSH PAIN SCALE 6 TO 10 Last administered on 06/19/17at 08:29; Start 06/15/17 at 06:30; Stop 06/20/17 at 08:25 ; Status DC Famotidine (Pepcid Inj) 10 mg Q12HR IV PUSH Last administered on 06/25/17at 08: 45; Start 06/15/17 at 09:00; Stop 06/25/17 at 16:28; Status DC Ondansetron HCl (Zofran Inj) 4 mg Q6H PRN IV PUSH NAUSEA OR VOMITING; Start at 06:30 Albuterol/ Ipratropium (Duoneb Neb) 1 ampule Q4HR NEB PRN INH WHEEZING; Start 06/15/17 at 06:30; Stop 06/27/17 at 09:15; Status DC Miscellaneous Information 1 Q361D XX Last administered on 06/15/17at 06:30; Start 06/15/17 at 06:30 Chlorhexidine Gluconate (Chlorhexidine 2% Cloth) 3 pack Taper DAILY@04 TOP Last administered on 06/20/17at 04:00; Start 06/16/17 at 04:00; Stop 06/12/18 at 03:59 Chlorhexidine Gluconate (Chlorhexidine 2% Cloth) 3 pack UNSCH PRN TOP HYGIENIC CARE; Start 06/15/17 at 06:30 Senna/Docusate Sodium ([place]-Colace) 1 tab BID PO Last administered on at 08:00; Start 06/15/17 at 09:00; Stop 06/29/17 at 15:16; Status DC Magnesium Hydroxide (Milk Of Magnesia Liq) 30 ml Q12H PRN PO Mild constipation Last administered on 06/22/17at 20:58; Start 06/15/17 at 06:30 Sennosides (Senokot) 17.2 mg Q12H PRN PO Moderate constipation; Start 06/15/17 at 06:30 Bisacodyl (Dulcolax Supp) 10 mg DAILY PRN RECTAL SEVERE CONSITIPATION; Start at 06:30 Lactulose (Lactulose Liq) 30 ml DAILY PRN PO SEVERE CONSITIPATION Last administered on 06/22/17at 20:58; Start 06/15/17 at 06:[address] (Zemuron Inj) 100 mg BOLUS ONCE IV Last administered on at 14:34; Start 06/15/17 at 14:00; Stop 06/15/17 at 14:01; Status DC Midazolam HCl (Versed Inj) 5 mg ONCE ONCE IV PUSH Last administered on at 14:35; Start 06/15/17 at 14:00; Stop 06/15/17 at 14:01; Status DC Chlorhexidine Gluconate (Peridex 0.12% Liq) 15 ml BID@08,20 MT Last administered on 07/08/17at 08:00; Start 06/15/17 at 20:00 Propofol 100 ml @ 0 mls/hr TITRATE PRN IV SEDATION; Start 06/15/17 at 14:00; Status UNV Midazolam HCl (Versed Inj) 5 mg STK-MED ONCE .ROUTE ; Start 06/15/17 at 14:07; Stop 06/15/17 at 14:08; Status DC Rocuronium Trail (Zemuron Inj) 50 mg STK-MED ONCE .ROUTE ; Start 06/15/17 at 14:07; Stop 06/15/17 at 14:08; Status DC Propofol 100 ml @ 1.941 mls/ hr TITRATE PRN IV SEDATION Last administered on at 14:41; Start 06/15/17 at 14:45; Stop 06/21/17 at 14:09; Status DC Miscellaneous Information (RASS Change Order) 1 ea ONCE ONCE XX Last administered on 06/15/17at 14:45; Start 06/15/17 at 14:45; Stop 06/15/17 at 14:46 ; Status DC Norepinephrine Bitartrate 4 mg/ Sodium Chloride 250 ml @ 7.5 mls/hr TITRATE PRN IV Maintain MAP > 70 mmHg; Start 06/15/17 at 19:45; Stop 06/15/17 at 21:37; Status DC Norepinephrine Bitartrate 4 mg/ Sodium Chloride 250 ml @ 7.5 mls/hr TITRATE PRN IV Maintain MAP > 70 mmHg Last administered on 06/15/17at 19:00; Start at 21:45; Stop 06/20/17 at 08:11; Status DC Levetriacetam (Keppra) 500 mg Q12HR PO Last administered on 07/08/17at 21:15; Start 06/17/17 at 11:30 Potassium Chloride 20 meq/ Lactated Ringer's 1,010 ml @ 42 mls/hr Q24H IV ; Start 06/17/17 at 12:45; Stop 06/17/17 at 13:02; Status DC Potassium Chloride 10 meq/ Lactated Ringer's 505 ml @ 42 mls/hr Q12H2M IV Last administered on 06/19/17at 22:32; Start 06/17/17 at 13:15; Stop 06/20/17 at 08:13; Status DC Pravastatin Sodium (Pravachol) 40 mg HS PO Last administered on 07/08/17at 21:15 ; Start 06/18/17 at 21:00 Potassium Phosphate 15 mmol/ Sodium Chloride 155 ml @ 38.75 mls/ hr ONCE ONCE IV Last administered on 06/19/17at 08:50; Start 06/19/17 at 08:00; Stop at 11:59; Status DC Metoprolol Tartrate (Lopressor) 25 mg Q12HR PO Last administered on 07/08/17at 21 :15; Start 06/19/17 at 09:00 Pharmacy Profile Note 0 ml @ 0 mls/hr UNSCH OTHER ; Start 06/20/17 at 08:15; Stop 06/21/17 at 14:09; Status DC Albuterol/ Ipratropium (Duoneb Neb) 1 ampule Q6HR NEB NEB Last administered on 06/24/17at 07:16; Start 06/20/17 at 10:00; Stop 06/24/17 at 09:59; Status DC Vancomycin HCl 1250 mg/Sodium Chloride 262.5 ml @ 262.5 mls/ hr ONCE ONCE IV Last administered on 06/20/17at 13:29; Start 06/20/17 at 12:00; Stop 06/20/17 at 12:59; Status DC Hydralazine HCl (Apresoline Inj) 10 mg Q4H PRN IV PUSH SBP greater than 160 Last administered on 07/01/17at 11:34; Start 06/20/17 at 12:30 Potassium Phosphate 15 mmol/ Sodium Chloride 155 ml @ 38.75 mls/ hr ONCE ONCE IV Last administered on 06/20/17at 17:05; Start 06/20/17 at 13:45; Stop at 17:44; Status DC Furosemide (Lasix Inj) 40 mg ONCE ONCE IV PUSH Last administered on 06/21/17at 08:53; Start 06/21/17 at 08:30; Stop 06/21/17 at 08:31; Status DC Cefazolin Sodium/ Dextrose 50 ml @ 100 mls/hr Q8H IV Last administered on 06/24at 15:02; Start 06/21/17 at 15:00; Stop 06/24/17 at 21:47; Status DC Cefazolin Sodium 2000 mg/Sodium Chloride 120 ml @ 240 mls/hr Q8H IV Last administered on 06/30/17at 06:06; Start 06/24/17 at 23:00; Stop 06/30/17 at 10:37 ; Status DC Famotidine (Pepcid) 10 mg BID PO Last administered on 07/03/17at 08:48; Start at 21:00; Stop 07/03/17 at 20:13; Status DC Chlorhexidine Gluconate (Hibiclens 4% Top Soln) 1 applic HS TOP Last administered on 06/27/17at 05:56; Start 06/26/17 at 21:00; Stop 06/28/17 at 21:01 ; Status DC Acetaminophen 100 ml @ As Directed STK-MED ONCE IV ; Start 06/27/17 at 07:04; Stop 06/27/17 at 07:05; Status DC Artificial Tears (Lacrilube Opht Oint) 3.5 applic STK-MED ONCE .ROUTE ; Start at 07:05; Stop 06/27/17 at 07:06; Status DC Lidocaine/ Epinephrine (Xylocaine-Epi 1%-1:100,000 Inj) 30 ml STK-MED ONCE .ROUTE ; Start 06/27/17 at 07:32; Stop 06/27/17 at 07:33; Status DC Thrombin (Thrombin Top Soln) 10,000 units STK-MED ONCE .ROUTE ; Start 06/27/17 at 07:32; Stop 06/27/17 at 07:33; Status DC Gelatin (Gelfoam 100 Top) 1 foam STK-MED ONCE .ROUTE ; Start 06/27/17 at 07:32; Stop 06/27/17 at 07:33; Status DC Bacitracin (Baciguent Oint) 15 applic STK-MED ONCE .ROUTE ; Start 06/27/17 at 07 :32; Stop 06/27/17 at 07:33; Status DC Gentamicin Sulfate (Gentamicin Inj) 240 mg STK-MED ONCE .ROUTE ; Start 06/27/17 at 07:33; Stop 06/27/17 at 07:34; Status DC Albuterol Sulfate (Albuterol Neb) 2.5 mg Q2HR NEB PRN NEB dyspnea; Start at 09:15 Labetalol HCl (Trandate Inj) 10 mg Q1HR PRN IV PUSH SBP>160, DBP>90, HR>65 Last administered on 07/08/17at 15:08; Start 06/27/17 at 09:15 Polyethylene Glycol (Miralax) 17 gm ONCE ONCE PO ; Start 06/27/17 at 09:15; Stop 06/27/17 at 09:19; Status DC Polyethylene Glycol (Miralax) 17 gm DAILY PO Last administered on 06/28/17at 08: 31; Start 06/28/17 at 09:00; Stop 06/28/17 at 15:18; Status DC Glycerin (Glycerin Adult Supp) 2 gm ONCE ONCE RECTAL ; Start 06/27/17 at 09:15 ; Stop 06/27/17 at 09:20; Status DC Sodium Chloride (Sodium Chloride) 1 gm ONCE ONCE PO ; Start 06/27/17 at 09:45; Stop 06/27/17 at 10:35; Status DC Propofol (Diprivan 500 Mg/ 50 ml Inj) 100 mg ONCE ONCE IV Last administered on 06/27/17at 11:10; Start 06/27/17 at 11:00; Stop 06/27/17 at 11:01; Status DC Chlorhexidine Gluconate (Peridex 0.12% Liq) 15 ml BID@08,20 MT ; Start 06/27/17 at 20:00; Status Cancel Propofol 100 ml @ 2.073 mls/ hr TITRATE PRN IV SEDATION Last administered on at 13:58; Start 06/27/17 at 11:00 Fentanyl Citrate 250 ml @ 5 mls/hr TITRATE PRN IV SEDATION Last administered on 07/06/17at 04:21; Start 06/27/17 at 11:00 Lidocaine HCl (Xylocaine 2% Inj) 100 mg ONCE ONCE IV PUSH Last administered on 06/27/17at 13:34; Start 06/27/17 at 11:00; Stop 06/27/17 at 11:01; Status DC Etomidate (Amidate Inj) 40 mg ONCE ONCE IV PUSH Last administered on at 13:34; Start 06/27/17 at 11:00; Stop 06/27/17 at 11:01; Status DC Rocuronium Trail (Zemuron Inj) 100 mg BOLUS ONCE IV Last administered on at 13:35; Start 06/27/17 at 11:30; Stop 06/27/17 at 11:31; Status DC Lidocaine/ Epinephrine (Xylocaine-Epi 1%-1:100,000 Inj) 30 ml STK-MED ONCE .ROUTE ; Start 06/27/17 at 10:50; Stop 06/27/17 at 10:51; Status DC Rocuronium Trail (Zemuron Inj) 100 mg STK-MED ONCE .ROUTE ; Start 06/27/17 at 10:51; Stop 06/27/17 at 10:52; Status DC Artificial Tears (Tears Naturale Opth Soln) 1 drop Q8HR EACH EYE Last administered on 07/08/17at 05:05; Start 06/28/17 at 17:00 Polyethylene Glycol (Miralax) 17 gm BID PO Last administered on 07/07/17 21:04 ; Start 06/28/17 at 21:00 Lactulose (Lactulose Liq) 30 ml QID PO Last administered on 07/01/17at 13:08; Start 06/28/17 at 18:00; Stop 07/01/17 at 14:12; Status DC Mineral Oil (Kondremul Liq) 30 ml ONCE ONCE PO Last administered on 06/28/17at 16:54; Start 06/28/17 at 17:00; Stop 06/28/17 at 17:01; Status DC Glycerin (Glycerin Adult Supp) 2 gm ONCE ONCE RECTAL Last administered on 06/28at 16:54; Start 06/28/17 at 17:00; Stop 06/28/17 at 17:01; Status DC Methylnaltrexone Trail (Relistor Inj) 12 mg ONCE ONCE SQ Last administered on 06/28/17at 17:20; Start 06/28/17 at 17:00; Stop 06/28/17 at 17:01; Status DC Metoclopramide HCl (Reglan Inj) 5 mg Q8HR IV PUSH Last administered on 21:15; Start 06/29/17 at 22:[address] (Relistor Inj) 12 mg ONCE ONCE SQ Last administered on 06/29/17at 17:14; Start 06/29/17 at 15:15; Stop 06/29/17 at 15:30; Status DC Docusate Sodium (Colace Liq) 100 mg Q12HR PO Last administered on 07/08/17 21: 14; Start 06/29/17 at 21:00 Sennosides (Senna Liq) 8.8 mg BID PO Last administered on 07/07/17at 21:04; Start 06/29/17 at 21:00 Mineral Oil (Kondremul Liq) 30 ml ONCE ONCE PO Last administered on 06/29/17at 15:15; Start 06/29/17 at 15:15; Stop 06/29/17 at 15:30; Status DC Glycerin (Glycerin Adult Supp) 2 gm ONCE ONCE RECTAL Last administered on 06/29at 15:15; Start 06/29/17 at 15:15; Stop 06/29/17 at 15:30; Status DC Magnesium Citrate (Citroma Liq) 300 ml ONCE ONCE PO ; Start 06/30/17 at 10:45; Stop 06/30/17 at 10:49; Status DC Mineral Oil (Fleet Mineral Oil Enema) 118 ml ONCE ONCE RECTAL ; Start 06/30/17 at 10:45; Stop 06/30/17 at 10:49; Status DC Mineral Oil (Kondremul Liq) 30 ml ONCE ONCE PO ; Start 06/30/17 at 10:45; Stop 06/30/17 at 10:49; Status DC Sodium Phosphate 30 mmol/Sodium Chloride 260 ml @ 43.333 mls/ hr ONCE ONCE IV ; Start 06/30/17 at 12:00; Stop 06/30/17 at 17:59; Status DC Magnesium Sulfate/ Dextrose 100 ml @ 100 mls/hr Q1H IV Last administered on at 11:45; Start 06/30/17 at 10:45; Stop 06/30/17 at 12:44; Status DC Piperacillin Sod/ Tazobactam Sod 100 ml @ 200 mls/hr Q6H IV Last administered on 07/07/17at 09:59; Start 06/30/17 at 11:00; Stop 07/07/17 at 11:00; Status DC Albuterol/ Ipratropium (Duoneb Neb) 1 ampule Q6HR WHILE AWAKE NEB NEB Last administered on 07/05/17at 13:13; Start 07/01/17 at 20:00; Stop 07/05/17 at 14:07; Status DC Potassium Chloride (KCl Powder) 20 meq ONCE ONCE PO ; Start 07/02/17 at 22:15; Stop 07/02/17 at 22:16; Status DC Famotidine (Pepcid) 20 mg BID PO Last administered on 07/08/17 21:14; Start 07/03/17 at 21:00 Folic Acid (Folate) 1 mg DAILY PO Last administered on 07/08/17at 10:32; Start at 09:15 Albuterol/ Ipratropium (Duoneb Neb) 1 ampule Q6HR WHILE AWAKE NEB NEB Last administered on 07/06/17at 13:06; Start 07/05/17 at 14:00; Stop 07/06/17 at 13:27; Status DC Albuterol/ Ipratropium (Duoneb Neb) 1 ampule Q6HR ALT NEB NEB ; Start 07/06/17 at 19:00; Stop 07/06/17 at 19:00; Status DC Acetaminophen (Tylenol 650 Mg/ 20 ml Liq) 650 mg Q6H PRN PO fever Last administered on 07/08/17at 15:09; Start 07/06/17 at 13:30 Albuterol/ Ipratropium (Duoneb Neb) 1 ampule Q6HR NEB NEB Last administered on 07/08/17at 20:51; Start 07/06/17 at 22:00 (Andre Nixon MD) Medical Decision Making MDM Remarks 77 y/o female with large hemorrhagic stroke, she had evidence of hydrocephalus, she underwent placement of ventriculostomy drain 06/15/17 due to worsening mental status with improvement of mental status pt did not tolerate clamping of ventriculostomy drain, ventriculostomy drain replaced 06/27/17, AU PAIR shunt held due to new right side stroke (Bell Mooney) Plan Plan Remarks continue ventriculostomy draining at 5 cm H20, monitoring ICPs cont critical care management, vent weaning as tolerated cont neuro checks and follow up examination (Bell Mooney) Attending Statement Neuro. Continue draining CSF and monitoring ICP Pulmonary. Continue mechanical ventilation and aggressive pulmonary toilette, nasotracheal suction, and breathing treatments with nebulizers. Daily PT and OT Renal. Continue to monitor closely urine output, BUN and creatinine Endocrine. Continue to Monitor serial Acu checks and SSI as needed in detail ID continue to monitor for signs of infection Continue Protonix for stress ulcer prophylaxis Continue Nickolas hose and SCD's for DVT prophylaxis Further recommendations will be provided depending on the patient's clinical evaluation and follow up studies. The exam, history, and the medical decision-making described in the above note were completed with the assistance of the mid-level provider. I reviewed and agree with the findings presented. I attest that I had a [id number] encounter with the patient on the same day, and personally performed and documented my assessment and findings in the medical record (Andre Nixon MD) Bell Mooney Jul 04, 2017 10:07 Andre Nixon MD Jul 08, 2017 21:59
--- NOTE | 2017-07-04 15:48 | HHI.CCPN ---
Subjective Remarks/Hospital Course Severely dehydrated, elderly woman presents confused to [facility] ED with hypertensive urgency and semi-acute right hemispheric parenchymal brain hemorrhage. Arrived from [facility] on cardene gtt and aphasic. Handness not determined yet. Unable to get ROS. No anticoagulants. INR normal. 06/16: Flaccid left side. Minimal eye opening. Moves right arm and leg to stimulation. Breathes over vent. ICP control, EVD draining well. 06/17: Moving both arms, right much stronger. More alert but episodic apnea spells. 06/18: No events over the night. Patient remains intubated, off sedation. She is currently on pressure support, 01/04, doing well. Awake, following commands. Son present at bedside. T-max of 99.6. I/O 250/1545. 06/19: No events over the night. Patient did well yesterday on pressure support , but was not able to be extubated secondary to no cuff leak. She remains on Cardene currently at 9.5 mg/h. Afebrile with a T-max of 99.4. Negative fluid balance. 06/20: Patient did well over the night. T-max of 100.2. ICP of 4. Thick sputum secretions sent yesterday for culture now growing Staphylococcus. Patient is awake, off sedation following some commands. Off Cardene drip since yesterday. 06/21: Patient did well postextubation and over the night. T-max of 100 yesterday morning. Very good urine output. Patient awake following commands, denying any pain. 06/22: No events over the night. Patient doing well. She is awake and alert, denies headache, nausea, vomiting. No chest pain, no dyspnea, no palpitations. On 2 L nasal cannula. Afebrile over the last 24 hours. Diuresed well post Lasix and she is on negative fluid balance since admission. 06/23: Patient awake, feels better, denies chest pain, shortness of breath, palpitations, headache. Still has productive cough. Afebrile, urine output is adequate. 06/24: No events over the night. Patient afebrile over the last 24 hours. She remains awake, resting in bed, denies any complaints. Sons at bedside. 06/25: Resting comfortably. Drowsy, arousable. EVD at 15cm, drained 60 cc overnight. 06/26: Resting comfortably. Awake and alert. EVD in place drain 10 cc overnight however has some clear fluid draining around ventriculostomy site. Dr. Nixon planning [employer] shunt for tomorrow. 06/27: Afebrile. Less arousable today. Eyes are closed. Subjective left-sided weakness. EVD in place at 20 cm. 4 cc overnight. On cefazolin with clear fluid draining from ventriculostomy site. MRI brain currently pending. 06/28: Afebrile. Intubated yesterday secondary to altered mental status/ aspiration. Arousable and follows commands in the ventilator. 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 Echocardiogram pending. Possibly some right carotid stenosis on carotid ultrasound which does not correlate to this current acute left MCA CVA 06/29: Afebrile. More arousable today. Spontaneously moving left upper extremity. Opens eyes to voice. Not following commands. Tolerating tube feeds at goal. 06/30: Resting in bed in no acute distress. More arousable today. Spontaneously moving left upper extremity. Opens eyes to voice. No bowel movement 07/01: T-max 99.8. Currently 99.3. Opens eyes to voice. Squeezes bilateral hands right greater than left. Not following commands however. Tolerating spontaneous breathing trial 07/02: T-max 100.1. Currently afebrile. Did not tolerate CPAP trial today. Slightly more responsive today briefly follow commands right greater than left. Tolerating tube feeding. Subjective 07/03: Tolerating CPAP trial today. T-max 100.1. Currently 98.5. 2 bowel movements. More arousable and alert today 07/04: on PSV 10/5/40%. more awake today. follows commands. Objective Vital Signs Date Time Temp Pulse Resp B/P (MAP) Pulse Ox O2 Delivery O2 Flow Rate FiO2 07/04/17 14:00 71 07/04/17 12:00 98.3 18 137/62 (87) 100 07/04/17 12:00 40 07/04/17 08:00 Mechanical Ventilator 07/03/17 19:00 2.00 Intake and Output 07/04/17 07/04/17 07/05/17 08:00 16:00 00:00 Intake Total 639 ml Output Total 1270 ml Balance -631 ml Result Diagram: 07/03/179 07/03/179 Imaging Last Impressions Chest X-Ray 07/02/17599 Signed Impressions: Service Date/Time: Sunday, July 02, 2017 04:23 - CONCLUSION: No significant change Harsha Wen MD Abdomen X-Ray 07/01/17599 Signed Impressions: Service Date/Time: Saturday, July 01, 2017 04:18 - CONCLUSION: 1. Nonspecific bowel gas pattern without evidence for obstruction or free air. Ivan Bahena MD Carotid Artery Ultrasound 06/27/17 0000 Signed Impressions: Service Date/Time: Tuesday, June 27, 2017 12:59 - CONCLUSION: 1. Moderate diffuse atherosclerotic plaquing at both carotid bifurcations. 2. Mild elevated velocity in the proximal right internal carotid artery. If clinically indicated , recommend CTA of the carotid arteries for further evaluation. 3. No definite high grade or hemodynamically significant stenosis is demonstrated. David Moore MD Brain MRI 06/27/17 0000 Signed Impressions: Service Date/Time: Tuesday, June 27, 2017 09:23 - CONCLUSION: 1. New development of a nonhemorrhagic acute infarct involving the left occipital lobe. 2. Otherwise, the rest of the exam is stable compared to the prior MRI. David Moore MD Head CT 06/26/17 0000 Signed Impressions: Service Date/Time: Monday, June 26, 2017 10:08 - CONCLUSION: 1. Continued evolution of right cerebral hematoma with slightly increasing surrounding edema. 2. No new hemorrhage identified. 3. Continued ventricular dilatation with no further decompression following placement of ventriculostomy. 4. No significant shift of midline structures. Rene Lomeli MD Head Magnetic Resonance Angiography 06/15/17 0000 Signed Impressions: Service Date/Time: Thursday, June 15, 2017 11:52 - CONCLUSION: MRA within normal limits. There is a parenchymal hemorrhage in the posterior right temporal lobe with intraventricular extension. Ivan Bahena MD Objective Remarks General - 77-year-old female, orotracheally intubated HEENT - pupils are equal and reactive about 2.5-3 mm bilaterally, sclerae are anicteric, neck is supple, neck veins are not distended, Left frontal [place] hole with placement of a ventriculostomy catheter -5 cm H2O, moist mucous membranes CV -RRR. sinus Chest - equal chest rise. psv 10/5/40%. unlabored. Abdomen - soft, nontender, not distended, no guarding. Extremities -warm, 1+ edema, + peripheral pulses Neuro -arousable on the ventilator and follows commands. Left gaze preference. , no facial asymmetry, squeezes fingers on both upper extremities but weak left side subjectively weaker than right strength 3 out of 5, wiggles toes to command A/P Problem List: (1) Hemorrhagic stroke ICD Code: I61.9 - Nontraumatic intracerebral hemorrhage, unspecified Status: Acute (2) Hypertensive urgency ICD Code: I16.0 - Hypertensive urgency Status: Acute (3) Encephalopathy, metabolic ICD Code: G93.41 - Metabolic encephalopathy Status: Acute (4) [place] (acute kidney injury) ICD Code: N17.9 - Acute kidney failure, unspecified Status: Acute Assessment and Plan Neuro/Psych: Right posterior temporal/occipital/parietal intra-axial hematoma Left MCA posterior temporal occipital CVA Right complex partial seizure Wernicke aphasia Acute encephalopathy fentanyl for sedation. CT brain 06/25 revealed a right occipital parietal intra-axial hematoma with mild surrounding edema. Right ventriculostomy placed 06/27-currently 5 cm H2O. MRI brain revealed a left MCA CVA involving the left posterior temporal occipital region On levetiracetam 500 mg twice daily for seizure. Acetaminophen 650 mg p.o. every 6 hours as needed fever/pain 1 through 10 MRI brain admission revealed right posterior temporal hemorrhage with ventricular extension MRA brain negative for aneurysm Carotid Dopplers with possible right carotid stenosis. Does not explain acute left MCA CVA. ESR, CRP and hypercoagulable workup pending Followed by Dr. Crowell neurology CV: Hypertensive emergency Dyslipidemia Currently on metoprolol 25 mg by mouth twice daily Currently on pravastatin 40 mg daily/on atorvastatin 40 mg daily at home Holding aspirin 81 mg daily in light of acute hemorrhage 06/29 echo - Normal left ventricular size. Mild concentric left ventricular hypertrophy. The left ventricular systolic function is hyperdynamic with an estimated ejection fraction in the range of 65-70%. Mitral annular calcification is present. There is trace tricuspid valve regurgitation. The estimated pulmonary arterial pressure is 43 mmHg. Resp: Acute hypoxic and hypercarbic respiratory failure secondary to aspiration slowly improving SBT daily will wean to extubate if passes SBT-- high risk for decompensation and re- intubation. if she needs to be re-intubated, will need trach and long-term weaning. CPAP trials daily Ventilator bundle Albuterol/ipratropium aerosols every 6 hours while awake with albuterol aerosols every 2 hours as needed dyspnea Spontaneous breathing trials daily GI: Hypoalbuminemia Constipation Jevity 1.5 at 50 cc an hour at goal Famotidine 20 mg twice daily for GI prophylaxis Docusate sodium/senna 1 tablet twice daily for bowel regimen. Continue polyethylene glycol 17 g twice daily, : Box catheter if indicated for accurate I's and O's in a critically ill patient. Endo: Sliding scale insulin if indicated to maintain euglycemia Renal: Creatinine currently within normal limits Monitor urine output Accurate I's and O's Heme: Normocytic anemia Monitor CBC daily. Follow trend Hypercoagulable workup currently in process ID: Serratia plymithica, MSSA and Klebsiella pneumonia Completed cefazolin 2 g IV every 8 hours day #7 Switch to penicillin/tazobactam day #4 Pertinent cultures 3 -sputum -Serratia Plymithica/Klebsiella pneumonia 06/29 -blood cultures 2 -no growth 06/18 -staph aureus/Klebsiella pneumonia sputum FEN: Replace electrolytes as clinically indicated MSK: Osteoarthritis/osteoporosis Holding alendronate 70 mg weekly. Resume clinically indicated Access -Utilize peripheral IV. Central line if indicated Prophylaxis -GI -famotidine -DVT -SCD/holding pharmacological prophylaxis in light of cerebral hematoma. Initiate when okay with neurosurgery Mann Taylor MD Jul 04, 2017 15:48
[2017-07-04] MEDS: PRAVASTATIN SOD 40 MG TAB PO SCH (21:00)
[2017-07-04] MEDS: fentaNYL DRIP 250 ML IV PRN (23:09)
[2017-07-05] VITALS (18 sets, daily range): BP systolic 116–153; BP diastolic 59–70; PULSE 60–75; RESP 14–18; TEMP 98–98.4; O2SAT 99–100
[2017-07-05] MEDS: CHLORHEXIDINE GLUCONATE 2 % 1 PACK (2 CLOTHS) TOP SCH (04:00)
[2017-07-05 04:26] LABS: HEMATOCRIT 25.1 % (35.0-46.0); HEMOGLOBIN 8.7 GM/DL (11.6-15.3); MEAN CORPUSCULAR HEMOGLOBIN 30.8 PG (27.0-34.0); MEAN CORPUSCULAR HGB CONC 34.6 % (32.0-36.0); MEAN PLATELET VOLUME 8.1 FL (7.0-11.0); PLATELET COUNT 230 TH/MM3 (150-450); RED BLOOD COUNT 2.82 MIL/MM3 (4.00-5.30); RED CELL DISTRIBUTION WIDTH 13.6 % (11.6-17.2); WHITE BLOOD COUNT 9.3 TH/MM3 (4.0-11.0)
[2017-07-05 04:57] LABS: BICARBONATE 27.1 MEQ/L (21.0-32.0); CALCIUM 8.3 MG/DL (8.5-10.1); CREATININE 0.89 MG/DL (0.50-1.00)
[2017-07-05] MEDS: ARTIFICIAL TEARS OPTH SOLN 15 ML BTL EACH EYE SCH ×3 (06:41→21:34)
[2017-07-05] MEDS: METOCLOPRAMIDE HCL 10 MG/2 ML VIAL IV PUSH SCH ×3 (06:41→21:33)
[2017-07-05] MEDS: PIPERACIL-TAZO 4.5 GM PREMIX 100 ML IV SCH ×3 (06:41→17:13)
[2017-07-05] MEDS: RESP: ALBUTEROL 2.5 MG/IPRATROPIUM 0.5 MG NEB (SCH) NEB ×3 (07:35→22:04)
[2017-07-05] MEDS: DOCUSATE SODIUM 100 MG/10 ML UDC PO SCH ×2 (09:00→21:00)
[2017-07-05] MEDS: POLYETHYLENE GLYCOL 17 GM PKG PO SCH ×2 (09:00→21:00)
[2017-07-05] MEDS: SENNOSIDES SYRUP 8.8 MG/5 ML CUP PO SCH ×2 (09:00→21:00)
[2017-07-05] MEDS: CHLORHEXIDINE 0.12% (ORAL KIT) 15 ML CUP MT SCH ×2 (10:15→21:34)
[2017-07-05] MEDS: FAMOTIDINE 20 MG TAB PO SCH ×2 (10:16→21:33)
[2017-07-05] MEDS: FOLIC ACID 1 MG TAB PO SCH (10:16)
[2017-07-05] MEDS: METOPROLOL TARTRATE 25 MG TAB PO SCH ×2 (10:16→21:33)
[2017-07-05] MEDS: levETIRAcetam 500 MG TAB PO SCH ×2 (10:16→21:32)
--- NOTE | 2017-07-05 13:58 | HHI.NSPN ---
(Bell Mooney) Note Status Status: Progress Note (Bell Mooney) Interval History Interval History 77 year old female with large hemorrhage stroke with hydrocephalus, worsening mental status, patient became severely obtunded difficult to arouse, she underwent placement of ventriculostomy drain 06/15/1706/16: ventriculostomy draining well, intubated, opening eyes and moving right side spontaneously. 06/18: ventriculostomy draining well, remains intubated, opens eyes, tracks, moves right side, stable left paresis 06/19: ventriculostomy draining well, CSF still bloody, dark red. opens eyes and moves right side spontaneously 06/20: ventriculostomy draining well, still gross bloody CSF, intubated, but opens eyes and gave thumbs up to command 06/25: Awake, ventriculostomy draining, drain raised to 15 cm of water over the weekend with stable ICPs. 06/26: EVD raised to 20 cm H20 yesterday, ICPs remains stable overnight, however appears more lethargic today, minimally opens eyes but falls back asleep. 06/27: MRI Brain this morning with new acute nonhemorrhagic left occipital infarct. 06/28: left ventriculostomy draining well, intubated and sedated. 07/02: ventriculostomy draining well, remains intubated. ICPs low. 07/03: ICPs stable overnight, intubated, no sedatives, awake, following simple commands. ventriculostomy draining well. 07/04: remains awake, alert, follows commands. still intubated. ventriculostomy draining well, ICPs controlled overnight. 07/05: continues to be intubated, mildly sedated due to vent restlessness. ventriculostomy continues to drain well, ICPs stable. (Bell Mooney) Labs, Micro, & Vital Signs Results Date Time Temp Pulse Resp B/P (MAP) Pulse Ox O2 Delivery O2 Flow Rate FiO2 07/05/17 12:00 66 07/05/17 12:00 40 07/05/17 12:00 98.2 64 18 116/59 (78) 99 07/05/17 11:16 99 40 07/05/17 10:00 62 07/05/17 09:12 100 40 07/05/17 08:00 98.0 70 17 135/70 (91) 100 07/05/17 08:00 40 07/05/17 08:00 66 07/05/17 07:48 40 07/05/17 07:28 100 40 07/05/17 07:00 100 Mechanical Ventilator 40 07/05/17 06:00 68 07/05/17 04:41 100 40 07/05/17 04:00 65 07/05/17 04:00 98.3 65 14 153/68 (96) 100 07/05/17 04:00 40 07/05/17 02:00 75 07/05/17 00:00 98.4 74 15 128/65 (86) 100 07/05/17 00:00 74 07/05/17 00:00 40 07/04/17 23:29 100 40 07/04/17 22:00 76 07/04/17 20:00 98.3 78 18 137/65 (89) 100 07/04/17 20:00 100 40 07/04/17 20:00 78 07/04/17 20:00 40 07/04/17 19:00 100 Mechanical Ventilator 2.00 40 07/04/17 18:00 73 07/04/17 16:00 98.1 74 28 124/75 (91) 100 07/04/17 16:00 74 07/04/17 16:00 74 07/04/17 16:00 40 07/04/17 14:00 71 Constitutional Vital Signs Date Time Temp Pulse Resp B/P (MAP) Pulse Ox O2 Delivery O2 Flow Rate FiO2 07/05/17 12:00 66 07/05/17 12:00 40 07/05/17 12:00 98.2 64 18 116/59 (78) 99 07/05/17 11:16 99 40 07/05/17 10:00 62 07/05/17 09:12 100 40 07/05/17 08:00 98.0 70 17 135/70 (91) 100 07/05/17 08:00 40 07/05/17 08:00 66 07/05/17 07:48 40 07/05/17 07:28 100 40 07/05/17 07:00 100 Mechanical Ventilator 40 07/05/17 06:00 68 07/05/17 04:41 100 40 07/05/17 04:00 65 07/05/17 04:00 98.3 65 14 153/68 (96) 100 07/05/17 04:00 40 07/05/17 02:00 75 07/05/17 00:00 98.4 74 15 128/65 (86) 100 07/05/17 00:00 74 07/05/17 00:00 40 07/04/17 23:29 100 40 07/04/17 22:00 76 07/04/17 20:00 98.3 78 18 137/65 (89) 100 07/04/17 20:00 100 40 07/04/17 20:00 78 07/04/17 20:00 40 07/04/17 19:00 100 Mechanical Ventilator 2.00 40 07/04/17 18:00 73 07/04/17 16:00 98.1 74 28 124/75 (91) 100 07/04/17 16:00 74 07/04/17 16:00 74 07/04/17 16:00 40 07/04/17 14:00 71 (Bell Mooney) Physical Exam Ms. Patrick is intubated. Awake, follows simple commands. HEENT: Left ventriculostomy at 5 cm H20 draining blood tinged CSF. ICPs=3 clamped. Site is clean and dry without signs of infection. Nonicteric sclera Cranial Nerves: Pupils equal, round reactive. Gross eoms intact, tracking. Cervical Spine: soft, supple Motor: follows gross movements to LE's to commands, moves upper extremities spontaneously, gave thumbs and squeezed to command. Sensory: withdraws to pain stimuli Heart: regular rate rhythm Lungs: clear (Bell Mooney) Ms. Patrick is intubated. Awake, follows simple commands. HEENT: Left ventriculostomy at 5 cm H20 draining blood tinged CSF. ICPs=3 clamped. Site is clean and dry without signs of infection. Nonicteric sclera Cranial Nerves: Pupils equal, round reactive. Gross eoms intact, tracking. Cervical Spine: soft, supple Motor: follows gross movements to LE's to commands, moves upper extremities spontaneously, gave thumbs and squeezed to command. Sensory: withdraws to pain stimuli Heart: regular rate rhythm Lungs: clear Skin. warm and dry (Andre Nixon MD) Medications Current Medications Current Medications Medications (Trade) Dose Ordered Sig/Jose Guadalupe Route PRN Reason Start Time Stop Time Status Last Admin Dose Admin Sodium Chloride (NS Flush) 2 ml UNSCH PRN IV FLUSH FLUSH AFTER USING IV ACCESS 06/15/17 05:15 07/02/17 10:18 Acetaminophen (Tylenol) 650 mg Q6H PRN PO PAIN 1-10 AND/OR FEVER >101F 06/15/17 06:30 06/23/17 20:18 Ondansetron HCl (Zofran Inj) 4 mg Q6H PRN IV PUSH NAUSEA OR VOMITING 06/15/17 06:30 Miscellaneous Information 1 Q361D XX 06/15/17 06:30 06/15/17 06:30 Chlorhexidine Gluconate (Chlorhexidine 2% Cloth) 3 pack Taper DAILY@04 TOP 06/16/17 04:00 06/12/18 03:59 06/20/17 04:00 Chlorhexidine Gluconate (Chlorhexidine 2% Cloth) 3 pack UNSCH PRN TOP HYGIENIC CARE 06/15/17 06:30 Magnesium Hydroxide (Milk Of Magnesia Liq) 30 ml Q12H PRN PO Mild constipation 06/15/17 06:30 06/22/17 20:58 Sennosides (Senokot) 17.2 mg Q12H PRN PO Moderate constipation 06/15/17 06:30 Bisacodyl (Dulcolax Supp) 10 mg DAILY PRN RECTAL SEVERE CONSITIPATION 06/15/17 06:30 Lactulose (Lactulose Liq) 30 ml DAILY PRN PO SEVERE CONSITIPATION 06/15/17 06:30 06/22/17 20:58 Chlorhexidine Gluconate (Peridex 0.12% Liq) 15 ml BID@08,20 MT 06/15/17 20:00 07/05/17 10:15 Levetriacetam (Keppra) 500 mg Q12HR PO 06/17/17 11:30 07/05/17 10:16 Pravastatin Sodium (Pravachol) 40 mg HS PO 06/18/17 21:00 07/04/17 21:00 Metoprolol Tartrate (Lopressor) 25 mg Q12HR PO 06/19/17 09:00 07/05/17 10:16 Hydralazine HCl (Apresoline Inj) 10 mg Q4H PRN IV PUSH SBP greater than 160 06/20/17 12:30 07/01/17 11:34 Albuterol Sulfate (Albuterol Neb) 2.5 mg Q2HR NEB PRN NEB dyspnea 06/27/17 09:15 Labetalol HCl (Trandate Inj) 10 mg Q1HR PRN IV PUSH SBP>160, DBP>90, HR>65 06/27/17 09:15 06/30/17 05:37 Propofol 100 ml @ 2.073 mls/ hr TITRATE PRN IV SEDATION 06/27/17 11:00 06/28/17 13:58 Fentanyl Citrate 250 ml @ 5 mls/hr TITRATE PRN IV SEDATION 06/27/17 11:00 07/04/17 23:09 Artificial Tears (Tears Naturale Opth Soln) 1 drop Q8HR EACH EYE 06/28/17 17:00 07/05/17 06:41 Polyethylene Glycol (Miralax) 17 gm BID PO 06/28/17 21:00 07/02/17 10:18 Metoclopramide HCl (Reglan Inj) 5 mg Q8HR IV PUSH 06/29/17 22:00 07/05/17 06:41 Docusate Sodium (Colace Liq) 100 mg Q12HR PO 06/29/17 21:00 07/02/17 20:11 Sennosides (Senna Liq) 8.8 mg BID PO 06/29/17 21:00 07/02/17 10:18 Piperacillin Sod/ Tazobactam Sod 100 ml @ 200 mls/hr Q6H IV 06/30/17 11:00 07/05/17 10:17 Albuterol/ Ipratropium (Duoneb Neb) 1 ampule Q6HR WHILE AWAKE NEB NEB 07/01/17 20:00 07/05/17 13:13 Famotidine (Pepcid) 20 mg BID PO 07/03/17 21:00 07/05/17 10:16 Folic Acid (Folate) 1 mg DAILY PO 07/04/17 09:15 07/05/17 10:16 (Bell Mooney) Current Medications Current Medications Sodium Chloride (NS Flush) 2 ml UNSCH PRN IV FLUSH FLUSH AFTER USING IV ACCESS Last administered on 07/02/17at 10:18; Start 06/15/17 at 05:15 Sodium Chloride 500 ml @ 500 mls/hr BOLUS ONCE IV ; Start 06/15/17 at 06:00; Stop 06/15/17 at 06:59; Status DC Nicardipine HCl 25 mg/Sodium Chloride 250 ml @ 50 mls/hr TITRATE PRN IV Blood pressure management Last administered on 06/19/17at 06:43; Start 06/15/17 at 06: 15; Stop 06/23/17 at 17:33; Status DC Pravastatin Sodium (Pravachol) 80 mg HS PO Last administered on 06/17/17at 23:23 ; Start 06/15/17 at 21:00; Stop 06/18/17 at 09:30; Status DC Levetriacetam 100 ml @ 400 mls/hr BOLUS ONCE IV Last administered on at 09:43; Start 06/15/17 at 06:30; Stop 06/15/17 at 06:44; Status DC Sodium Chloride 1,000 ml @ 100 mls/hr Q10H IV Last administered on 06/17/17at 07:29; Start 06/15/17 at 06:17; Stop 06/17/17 at 12:42; Status DC Acetaminophen (Tylenol) 650 mg Q6H PRN PO PAIN 1-10 AND/OR FEVER >101F Last administered on 06/23/17at 20:18; Start 06/15/17 at 06:30; Stop 07/06/17 at 13:27 ; Status DC Morphine Sulfate (Morphine Inj) 2 mg Q2H PRN IV PUSH PAIN SCALE 6 TO 10 Last administered on 06/19/17at 08:29; Start 06/15/17 at 06:30; Stop 06/20/17 at 08:25 ; Status DC Famotidine (Pepcid Inj) 10 mg Q12HR IV PUSH Last administered on 06/25/17at 08: 45; Start 06/15/17 at 09:00; Stop 06/25/17 at 16:28; Status DC Ondansetron HCl (Zofran Inj) 4 mg Q6H PRN IV PUSH NAUSEA OR VOMITING; Start at 06:30 Albuterol/ Ipratropium (Duoneb Neb) 1 ampule Q4HR NEB PRN INH WHEEZING; Start 06/15/17 at 06:30; Stop 06/27/17 at 09:15; Status DC Miscellaneous Information 1 Q361D XX Last administered on 06/15/17at 06:30; Start 06/15/17 at 06:30 Chlorhexidine Gluconate (Chlorhexidine 2% Cloth) 3 pack Taper DAILY@04 TOP Last administered on 06/20/17at 04:00; Start 06/16/17 at 04:00; Stop 06/12/18 at 03:59 Chlorhexidine Gluconate (Chlorhexidine 2% Cloth) 3 pack UNSCH PRN TOP HYGIENIC CARE; Start 06/15/17 at 06:30 Senna/Docusate Sodium ([place]-Colace) 1 tab BID PO Last administered on at 08:00; Start 06/15/17 at 09:00; Stop 06/29/17 at 15:16; Status DC Magnesium Hydroxide (Milk Of Magnesia Liq) 30 ml Q12H PRN PO Mild constipation Last administered on 06/22/17at 20:58; Start 06/15/17 at 06:30 Sennosides (Senokot) 17.2 mg Q12H PRN PO Moderate constipation; Start 06/15/17 at 06:30 Bisacodyl (Dulcolax Supp) 10 mg DAILY PRN RECTAL SEVERE CONSITIPATION; Start at 06:30 Lactulose (Lactulose Liq) 30 ml DAILY PRN PO SEVERE CONSITIPATION Last administered on 06/22/17at 20:58; Start 06/15/17 at 06:30 Rocuronium Tendoy (Zemuron Inj) 100 mg BOLUS ONCE IV Last administered on at 14:34; Start 06/15/17 at 14:00; Stop 06/15/17 at 14:01; Status DC Midazolam HCl (Versed Inj) 5 mg ONCE ONCE IV PUSH Last administered on at 14:35; Start 06/15/17 at 14:00; Stop 06/15/17 at 14:01; Status DC Chlorhexidine Gluconate (Peridex 0.12% Liq) 15 ml BID@08,20 MT Last administered on 07/08/17at 08:00; Start 06/15/17 at 20:00 Propofol 100 ml @ 0 mls/hr TITRATE PRN IV SEDATION; Start 06/15/17 at 14:00; Status UNV Midazolam HCl (Versed Inj) 5 mg STK-MED ONCE .ROUTE ; Start 06/15/17 at 14:07; Stop 06/15/17 at 14:08; Status DC Rocuronium Tendoy (Zemuron Inj) 50 mg STK-MED ONCE .ROUTE ; Start 06/15/17 at 14:07; Stop 06/15/17 at 14:08; Status DC Propofol 100 ml @ 1.941 mls/ hr TITRATE PRN IV SEDATION Last administered on at 14:41; Start 06/15/17 at 14:45; Stop 06/21/17 at 14:09; Status DC Miscellaneous Information (RASS Change Order) 1 ea ONCE ONCE XX Last administered on 06/15/17at 14:45; Start 06/15/17 at 14:45; Stop 06/15/17 at 14:46 ; Status DC Norepinephrine Bitartrate 4 mg/ Sodium Chloride 250 ml @ 7.5 mls/hr TITRATE PRN IV Maintain MAP > 70 mmHg; Start 06/15/17 at 19:45; Stop 06/15/17 at 21:37; Status DC Norepinephrine Bitartrate 4 mg/ Sodium Chloride 250 ml @ 7.5 mls/hr TITRATE PRN IV Maintain MAP > 70 mmHg Last administered on 06/15/17at 19:00; Start at 21:45; Stop 06/20/17 at 08:11; Status DC Levetriacetam (Keppra) 500 mg Q12HR PO Last administered on 07/08/17at 21:15; Start 06/17/17 at 11:30 Potassium Chloride 20 meq/ Lactated Ringer's 1,010 ml @ 42 mls/hr Q24H IV ; Start 06/17/17 at 12:45; Stop 06/17/17 at 13:02; Status DC Potassium Chloride 10 meq/ Lactated Ringer's 505 ml @ 42 mls/hr Q12H2M IV Last administered on 06/19/17at 22:32; Start 06/17/17 at 13:15; Stop 06/20/17 at 08:13; Status DC Pravastatin Sodium (Pravachol) 40 mg HS PO Last administered on 07/08/17at 21:15 ; Start 06/18/17 at 21:00 Potassium Phosphate 15 mmol/ Sodium Chloride 155 ml @ 38.75 mls/ hr ONCE ONCE IV Last administered on 06/19/17at 08:50; Start 06/19/17 at 08:00; Stop at 11:59; Status DC Metoprolol Tartrate (Lopressor) 25 mg Q12HR PO Last administered on 07/08/17at 21 :15; Start 06/19/17 at 09:00 Pharmacy Profile Note 0 ml @ 0 mls/hr UNSCH OTHER ; Start 06/20/17 at 08:15; Stop 06/21/17 at 14:09; Status DC Albuterol/ Ipratropium (Duoneb Neb) 1 ampule Q6HR NEB NEB Last administered on 06/24/17at 07:16; Start 06/20/17 at 10:00; Stop 06/24/17 at 09:59; Status DC Vancomycin HCl 1250 mg/Sodium Chloride 262.5 ml @ 262.5 mls/ hr ONCE ONCE IV Last administered on 06/20/17at 13:29; Start 06/20/17 at 12:00; Stop 06/20/17 at 12:59; Status DC Hydralazine HCl (Apresoline Inj) 10 mg Q4H PRN IV PUSH SBP greater than 160 Last administered on 07/01/17at 11:34; Start 06/20/17 at 12:30 Potassium Phosphate 15 mmol/ Sodium Chloride 155 ml @ 38.75 mls/ hr ONCE ONCE IV Last administered on 06/20/17at 17:05; Start 06/20/17 at 13:45; Stop at 17:44; Status DC Furosemide (Lasix Inj) 40 mg ONCE ONCE IV PUSH Last administered on 06/21/17at 08:53; Start 06/21/17 at 08:30; Stop 06/21/17 at 08:31; Status DC Cefazolin Sodium/ Dextrose 50 ml @ 100 mls/hr Q8H IV Last administered on 06/24at 15:02; Start 06/21/17 at 15:00; Stop 06/24/17 at 21:47; Status DC Cefazolin Sodium 2000 mg/Sodium Chloride 120 ml @ 240 mls/hr Q8H IV Last administered on 06/30/17at 06:06; Start 06/24/17 at 23:00; Stop 06/30/17 at 10:37 ; Status DC Famotidine (Pepcid) 10 mg BID PO Last administered on 07/03/17at 08:48; Start at 21:00; Stop 07/03/17 at 20:13; Status DC Chlorhexidine Gluconate (Hibiclens 4% Top Soln) 1 applic HS TOP Last administered on 06/27/17at 05:56; Start 06/26/17 at 21:00; Stop 06/28/17 at 21:01 ; Status DC Acetaminophen 100 ml @ As Directed STK-MED ONCE IV ; Start 06/27/17 at 07:04; Stop 06/27/17 at 07:05; Status DC Artificial Tears (Lacrilube Opht Oint) 3.5 applic STK-MED ONCE .ROUTE ; Start at 07:05; Stop 06/27/17 at 07:06; Status DC Lidocaine/ Epinephrine (Xylocaine-Epi 1%-1:100,000 Inj) 30 ml STK-MED ONCE .ROUTE ; Start 06/27/17 at 07:32; Stop 06/27/17 at 07:33; Status DC Thrombin (Thrombin Top Soln) 10,000 units STK-MED ONCE .ROUTE ; Start 06/27/17 at 07:32; Stop 06/27/17 at 07:33; Status DC Gelatin (Gelfoam 100 Top) 1 foam STK-MED ONCE .ROUTE ; Start 06/27/17 at 07:32; Stop 06/27/17 at 07:33; Status DC Bacitracin (Baciguent Oint) 15 applic STK-MED ONCE .ROUTE ; Start 06/27/17 at 07 :32; Stop 06/27/17 at 07:33; Status DC Gentamicin Sulfate (Gentamicin Inj) 240 mg STK-MED ONCE .ROUTE ; Start 06/27/17 at 07:33; Stop 06/27/17 at 07:34; Status DC Albuterol Sulfate (Albuterol Neb) 2.5 mg Q2HR NEB PRN NEB dyspnea; Start at 09:15 Labetalol HCl (Trandate Inj) 10 mg Q1HR PRN IV PUSH SBP>160, DBP>90, HR>65 Last administered on 07/08/17at 15:08; Start 06/27/17 at 09:15 Polyethylene Glycol (Miralax) 17 gm ONCE ONCE PO ; Start 06/27/17 at 09:15; Stop 06/27/17 at 09:19; Status DC Polyethylene Glycol (Miralax) 17 gm DAILY PO Last administered on 06/28/17at 08: 31; Start 06/28/17 at 09:00; Stop 06/28/17 at 15:18; Status DC Glycerin (Glycerin Adult Supp) 2 gm ONCE ONCE RECTAL ; Start 06/27/17 at 09:15 ; Stop 06/27/17 at 09:20; Status DC Sodium Chloride (Sodium Chloride) 1 gm ONCE ONCE PO ; Start 06/27/17 at 09:45; Stop 06/27/17 at 10:35; Status DC Propofol (Diprivan 500 Mg/ 50 ml Inj) 100 mg ONCE ONCE IV Last administered on 06/27/17at 11:10; Start 06/27/17 at 11:00; Stop 06/27/17 at 11:01; Status DC Chlorhexidine Gluconate (Peridex 0.12% Liq) 15 ml BID@08,20 MT ; Start 06/27/17 at 20:00; Status Cancel Propofol 100 ml @ 2.073 mls/ hr TITRATE PRN IV SEDATION Last administered on at 13:58; Start 06/27/17 at 11:00 Fentanyl Citrate 250 ml @ 5 mls/hr TITRATE PRN IV SEDATION Last administered on 07/06/17at 04:21; Start 06/27/17 at 11:00 Lidocaine HCl (Xylocaine 2% Inj) 100 mg ONCE ONCE IV PUSH Last administered on 06/27/17at 13:34; Start 06/27/17 at 11:00; Stop 06/27/17 at 11:01; Status DC Etomidate (Amidate Inj) 40 mg ONCE ONCE IV PUSH Last administered on at 13:34; Start 06/27/17 at 11:00; Stop 06/27/17 at 11:01; Status DC Rocuronium Tendoy (Zemuron Inj) 100 mg BOLUS ONCE IV Last administered on at 13:35; Start 06/27/17 at 11:30; Stop 06/27/17 at 11:31; Status DC Lidocaine/ Epinephrine (Xylocaine-Epi 1%-1:100,000 Inj) 30 ml STK-MED ONCE .ROUTE ; Start 06/27/17 at 10:50; Stop 06/27/17 at 10:51; Status DC Rocuronium Tendoy (Zemuron Inj) 100 mg STK-MED ONCE .ROUTE ; Start 06/27/17 at 10:51; Stop 06/27/17 at 10:52; Status DC Artificial Tears (Tears Naturale Opth Soln) 1 drop Q8HR EACH EYE Last administered on 07/08/17at 05:05; Start 06/28/17 at 17:00 Polyethylene Glycol (Miralax) 17 gm BID PO Last administered on 07/07/17at 21:04 ; Start 06/28/17 at 21:00 Lactulose (Lactulose Liq) 30 ml QID PO Last administered on 07/01/17at 13:08; Start 06/28/17 at 18:00; Stop 07/01/17 at 14:12; Status DC Mineral Oil (Kondremul Liq) 30 ml ONCE ONCE PO Last administered on 06/28/17at 16:54; Start 06/28/17 at 17:00; Stop 06/28/17 at 17:01; Status DC Glycerin (Glycerin Adult Supp) 2 gm ONCE ONCE RECTAL Last administered on 06/28at 16:54; Start 06/28/17 at 17:00; Stop 06/28/17 at 17:01; Status DC Methylnaltrexone Tendoy (Relistor Inj) 12 mg ONCE ONCE SQ Last administered on 06/28/17at 17:20; Start 06/28/17 at 17:00; Stop 06/28/17 at 17:01; Status DC Metoclopramide HCl (Reglan Inj) 5 mg Q8HR IV PUSH Last administered on at 21:15; Start 06/29/17 at 22:00 Methylnaltrexone Tendoy (Relistor Inj) 12 mg ONCE ONCE SQ Last administered on 06/29/17at 17:14; Start 06/29/17 at 15:15; Stop 06/29/17 at 15:30; Status DC Docusate Sodium (Colace Liq) 100 mg Q12HR PO Last administered on 07/08/17at 21: 14; Start 06/29/17 at 21:00 Sennosides (Senna Liq) 8.8 mg BID PO Last administered on 07/07/17at 21:04; Start 06/29/17 at 21:00 Mineral Oil (Kondremul Liq) 30 ml ONCE ONCE PO Last administered on 06/29/17at 15:15; Start 06/29/17 at 15:15; Stop 06/29/17 at 15:30; Status DC Glycerin (Glycerin Adult Supp) 2 gm ONCE ONCE RECTAL Last administered on 06/29at 15:15; Start 06/29/17 at 15:15; Stop 06/29/17 at 15:30; Status DC Magnesium Citrate (Citroma Liq) 300 ml ONCE ONCE PO ; Start 06/30/17 at 10:45; Stop 06/30/17 at 10:49; Status DC Mineral Oil (Fleet Mineral Oil Enema) 118 ml ONCE ONCE RECTAL ; Start 06/30/17 at 10:45; Stop 06/30/17 at 10:49; Status DC Mineral Oil (Kondremul Liq) 30 ml ONCE ONCE PO ; Start 06/30/17 at 10:45; Stop 06/30/17 at 10:49; Status DC Sodium Phosphate 30 mmol/Sodium Chloride 260 ml @ 43.333 mls/ hr ONCE ONCE IV ; Start 06/30/17 at 12:00; Stop 06/30/17 at 17:59; Status DC Magnesium Sulfate/ Dextrose 100 ml @ 100 mls/hr Q1H IV Last administered on at 11:45; Start 06/30/17 at 10:45; Stop 06/30/17 at 12:44; Status DC Piperacillin Sod/ Tazobactam Sod 100 ml @ 200 mls/hr Q6H IV Last administered on 07/07/17at 09:59; Start 06/30/17 at 11:00; Stop 07/07/17 at 11:00; Status DC Albuterol/ Ipratropium (Duoneb Neb) 1 ampule Q6HR WHILE AWAKE NEB NEB Last administered on 07/05/17at 13:13; Start 07/01/17 at 20:00; Stop 07/05/17 at 14:07; Status DC Potassium Chloride (KCl Powder) 20 meq ONCE ONCE PO ; Start 07/02/17 at 22:15; Stop 07/02/17 at 22:16; Status DC Famotidine (Pepcid) 20 mg BID PO Last administered on 07/08/17at 21:14; Start 07/03/17 at 21:00 Folic Acid (Folate) 1 mg DAILY PO Last administered on 07/08/17at 10:32; Start at 09:15 Albuterol/ Ipratropium (Duoneb Neb) 1 ampule Q6HR WHILE AWAKE NEB NEB Last administered on 07/06/17at 13:06; Start 07/05/17 at 14:00; Stop 07/06/17 at 13:27; Status DC Albuterol/ Ipratropium (Duoneb Neb) 1 ampule Q6HR ALT NEB NEB ; Start 07/06/17 at 19:00; Stop 07/06/17 at 19:00; Status DC Acetaminophen (Tylenol 650 Mg/ 20 ml Liq) 650 mg Q6H PRN PO fever Last administered on 07/08/17at 15:09; Start 07/06/17 at 13:30 Albuterol/ Ipratropium (Duoneb Neb) 1 ampule Q6HR NEB NEB Last administered on 07/08/17at 20:51; Start 07/06/17 at 22:00 (Andre Nixon MD) Medical Decision Making MDM Remarks 77 y/o female with large hemorrhagic stroke, she had evidence of hydrocephalus, she underwent placement of ventriculostomy drain 06/15/17 due to worsening mental status with improvement of mental status pt did not tolerate clamping of ventriculostomy drain, ventriculostomy drain replaced 06/27/17, BEVERAGE DISTILLER shunt held due to new right side stroke (Bell Mooney) Plan Plan Remarks Continue vent weaning per critical care, okay for tracheostomy if needed cont ventriculostomy draining neuro checks (Bell Mooney) Attending Statement Continue CSF drainage and ICP monitoring Pulmonary. Continue mechanical ventilation. Continue mechanical ventilation, aggressive pulmonary toilette, nasotracheal suction, and breathing treatments with nebulizers. Daily PT and OT Renal. Continue to monitor closely urine output, BUN and creatinine Endocrine. Continue to Monitor serial Acu checks and SSI as needed in detail ID continue to monitor for signs of infection Continue Protonix for stress ulcer prophylaxis Continue Nickolas hose and SCD's for DVT prophylaxis Further recommendations will be provided depending on the patient's clinical evaluation and follow up studies. The exam, history, and the medical decision-making described in the above note were completed with the assistance of the mid-level provider. I reviewed and agree with the findings presented. I attest that I had a [id number] encounter with the patient on the same day, and personally performed and documented my assessment and findings in the medical record. (Andre Nixon MD) Bell Mooney Jul 05, 2017 13:58 Andre Nixon MD Jul 08, 2017 22:08
--- NOTE | 2017-07-05 14:07 | HHI.CCPN ---
Subjective Remarks/Hospital Course Severely dehydrated, elderly woman presents confused to [facility] ED with hypertensive urgency and semi-acute right hemispheric parenchymal brain hemorrhage. Arrived from [facility] on cardene gtt and aphasic. Handness not determined yet. Unable to get ROS. No anticoagulants. INR normal. 06/16: Flaccid left side. Minimal eye opening. Moves right arm and leg to stimulation. Breathes over vent. ICP control, EVD draining well. 06/17: Moving both arms, right much stronger. More alert but episodic apnea spells. 06/18: No events over the night. Patient remains intubated, off sedation. She is currently on pressure support, 01/04, doing well. Awake, following commands. Son present at bedside. T-max of 99.6. I/O 250/1545. 06/19: No events over the night. Patient did well yesterday on pressure support , but was not able to be extubated secondary to no cuff leak. She remains on Cardene currently at 9.5 mg/h. Afebrile with a T-max of 99.4. Negative fluid balance. 06/20: Patient did well over the night. T-max of 100.2. ICP of 4. Thick sputum secretions sent yesterday for culture now growing Staphylococcus. Patient is awake, off sedation following some commands. Off Cardene drip since yesterday. 06/21: Patient did well postextubation and over the night. T-max of 100 yesterday morning. Very good urine output. Patient awake following commands, denying any pain. 06/22: No events over the night. Patient doing well. She is awake and alert, denies headache, nausea, vomiting. No chest pain, no dyspnea, no palpitations. On 2 L nasal cannula. Afebrile over the last 24 hours. Diuresed well post Lasix and she is on negative fluid balance since admission. 06/23: Patient awake, feels better, denies chest pain, shortness of breath, palpitations, headache. Still has productive cough. Afebrile, urine output is adequate. 06/24: No events over the night. Patient afebrile over the last 24 hours. She remains awake, resting in bed, denies any complaints. Sons at bedside. 06/25: Resting comfortably. Drowsy, arousable. EVD at 15cm, drained 60 cc overnight. 06/26: Resting comfortably. Awake and alert. EVD in place drain 10 cc overnight however has some clear fluid draining around ventriculostomy site. Dr. Nixon planning TANKER DRIVER shunt for tomorrow. 06/27: Afebrile. Less arousable today. Eyes are closed. Subjective left-sided weakness. EVD in place at 20 cm. 4 cc overnight. On cefazolin with clear fluid draining from ventriculostomy site. MRI brain currently pending. 06/28: Afebrile. Intubated yesterday secondary to altered mental status/ aspiration. Arousable and follows commands in the ventilator. 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 Echocardiogram pending. Possibly some right carotid stenosis on carotid ultrasound which does not correlate to this current acute left MCA CVA 06/29: Afebrile. More arousable today. Spontaneously moving left upper extremity. Opens eyes to voice. Not following commands. Tolerating tube feeds at goal. 06/30: Resting in bed in no acute distress. More arousable today. Spontaneously moving left upper extremity. Opens eyes to voice. No bowel movement 07/01: T-max 99.8. Currently 99.3. Opens eyes to voice. Squeezes bilateral hands right greater than left. Not following commands however. Tolerating spontaneous breathing trial 07/02: T-max 100.1. Currently afebrile. Did not tolerate CPAP trial today. Slightly more responsive today briefly follow commands right greater than left. Tolerating tube feeding. Subjective 07/03: Tolerating CPAP trial today. T-max 100.1. Currently 98.5. 2 bowel movements. More arousable and alert today 07/04: on PSV 01/04/40%. more awake today. follows commands. 07/05: continues to be more awake and alert, but also continues to fail CPAP trials. becomes tachypneic and distress. Objective Vital Signs Date Time Temp Pulse Resp B/P (MAP) Pulse Ox O2 Delivery O2 Flow Rate FiO2 07/05/17 12:00 66 07/05/17 12:00 40 07/05/17 12:00 98.2 18 116/59 (78) 99 07/05/17 07:00 Mechanical Ventilator 07/04/17 19:00 2.00 Intake and Output 07/05/17 07/05/17 07/06/17 08:00 16:00 00:00 Intake Total 1165.9 ml Output Total 990 ml Balance 175.9 ml Result Diagram: 07/05/1740507/05/17405 Imaging Last Impressions Chest X-Ray 07/02/17599 Signed Impressions: Service Date/Time: Sunday, July 02, 2017 04:23 - CONCLUSION: No significant change Harsha Wen MD Abdomen X-Ray 07/01/17599 Signed Impressions: Service Date/Time: Saturday, July 01, 2017 04:18 - CONCLUSION: 1. Nonspecific bowel gas pattern without evidence for obstruction or free air. Ivan Bahena MD Carotid Artery Ultrasound 06/27/17 0000 Signed Impressions: Service Date/Time: Tuesday, June 27, 2017 12:59 - CONCLUSION: 1. Moderate diffuse atherosclerotic plaquing at both carotid bifurcations. 2. Mild elevated velocity in the proximal right internal carotid artery. If clinically indicated , recommend CTA of the carotid arteries for further evaluation. 3. No definite high grade or hemodynamically significant stenosis is demonstrated. David Moore MD Brain MRI 06/27/17 0000 Signed Impressions: Service Date/Time: Tuesday, June 27, 2017 09:23 - CONCLUSION: 1. New development of a nonhemorrhagic acute infarct involving the left occipital lobe. 2. Otherwise, the rest of the exam is stable compared to the prior MRI. David Moore MD Head CT 06/26/17 0000 Signed Impressions: Service Date/Time: Monday, June 26, 2017 10:08 - CONCLUSION: 1. Continued evolution of right cerebral hematoma with slightly increasing surrounding edema. 2. No new hemorrhage identified. 3. Continued ventricular dilatation with no further decompression following placement of ventriculostomy. 4. No significant shift of midline structures. Rene Lomeli MD Head Magnetic Resonance Angiography 06/15/17 0000 Signed Impressions: Service Date/Time: Thursday, June 15, 2017 11:52 - CONCLUSION: MRA within normal limits. There is a parenchymal hemorrhage in the posterior right temporal lobe with intraventricular extension. Ivan Bahena MD Objective Remarks General - 77-year-old female, orotracheally intubated HEENT - pupils are equal and reactive about 2.5-3 mm bilaterally, sclerae are anicteric, neck is supple, neck veins are not distended, Left frontal [place] hole with placement of a ventriculostomy catheter -5 cm H2O, moist mucous membranes CV -RRR. sinus Chest - equal chest rise. psv 10/5/40%. unlabored. Abdomen - soft, nontender, not distended, no guarding. Extremities -warm, 1+ edema, + peripheral pulses Neuro -arousable on the ventilator and follows commands. Left gaze preference. , no facial asymmetry, squeezes fingers on both upper extremities but weak left side subjectively weaker than right strength 3 out of 5, wiggles toes to command A/P Problem List: (1) Hemorrhagic stroke ICD Code: I61.9 - Nontraumatic intracerebral hemorrhage, unspecified Status: Acute (2) Hypertensive urgency ICD Code: I16.0 - Hypertensive urgency Status: Acute (3) Encephalopathy, metabolic ICD Code: G93.41 - Metabolic encephalopathy Status: Acute (4) CLAYTON (acute kidney injury) ICD Code: N17.9 - Acute kidney failure, unspecified Status: Acute Assessment and Plan Neuro/Psych: Right posterior temporal/occipital/parietal intra-axial hematoma Left MCA posterior temporal occipital CVA Right complex partial seizure Wernicke aphasia Acute encephalopathy fentanyl for sedation. CT brain 06/25 revealed a right occipital parietal intra-axial hematoma with mild surrounding edema. Right ventriculostomy placed 06/27-currently 5 cm H2O. MRI brain revealed a left MCA CVA involving the left posterior temporal occipital region On levetiracetam 500 mg twice daily for seizure. Acetaminophen 650 mg p.o. every 6 hours as needed fever/pain MRI brain admission revealed right posterior temporal hemorrhage with ventricular extension MRA brain negative for aneurysm Carotid Dopplers with possible right carotid stenosis. Does not explain acute left MCA CVA. ESR, CRP and hypercoagulable workup pending Followed by Dr. Crowell neurology CV: Hypertensive emergency Dyslipidemia Currently on metoprolol 25 mg by mouth twice daily Currently on pravastatin 40 mg daily/on atorvastatin 40 mg daily at home Holding aspirin 81 mg daily in light of acute hemorrhage 06/29 echo - Normal left ventricular size. Mild concentric left ventricular hypertrophy. The left ventricular systolic function is hyperdynamic with an estimated ejection fraction in the range of 65-70%. Mitral annular calcification is present. There is trace tricuspid valve regurgitation. The estimated pulmonary arterial pressure is 43 mmHg. Resp: Acute hypoxic and hypercarbic respiratory failure secondary to aspiration slowly improving SBT daily will wean to extubate if passes SBT-- high risk for decompensation and re- intubation. if she needs to be re-intubated, will need trach and long-term weaning. CPAP trials daily- continues to fail for tachypnea. Ventilator bundle Albuterol/ipratropium aerosols every 6 hours while awake with albuterol aerosols every 2 hours as needed dyspnea Spontaneous breathing trials daily GI: Hypoalbuminemia Constipation Jevity 1.5 at 50 cc an hour at goal Famotidine 20 mg twice daily for GI prophylaxis Docusate sodium/senna 1 tablet twice daily for bowel regimen. Continue polyethylene glycol 17 g twice daily, : no indication for kent catheter. Endo: Sliding scale insulin if indicated to maintain euglycemia Renal: Creatinine currently within normal limits Monitor urine output Accurate I's and O's Heme: Normocytic anemia Monitor CBC daily. Follow trend Hypercoagulable workup currently in process ID: Serratia plymithica, MSSA and Klebsiella pneumonia Completed cefazolin 2 g IV every 8 hours day #7 Switch to penicillin/tazobactam day #5: complete full 7 day course. anticipated stop date 07/07. Pertinent cultures 06/30 -sputum -Serratia Plymithica/Klebsiella pneumonia 06/29 -blood cultures 2 -no growth 06/18 -staph aureus/Klebsiella pneumonia sputum FEN: Replace electrolytes as clinically indicated MSK: Osteoarthritis/osteoporosis Holding alendronate 70 mg weekly. Resume clinically indicated Access -Utilize peripheral IV. Central line if indicated Prophylaxis -GI -famotidine -DVT -SCD/holding pharmacological prophylaxis in light of cerebral hematoma. Initiate when okay with neurosurgery OVERALL IMPRESSION: needs aggressive weaning efforts. very deconditioned. high likelihood of failure requiring trach and long-term vent wean. ventric management per neurosurgery. Mann Taylor MD Jul 05, 2017 14:07
[2017-07-05] MEDS: PRAVASTATIN SOD 40 MG TAB PO SCH (21:32)
[2017-07-06] VITALS (18 sets, daily range): BP systolic 121–147; BP diastolic 58–65; PULSE 60–75; RESP 14–22; TEMP 98.3–99.3; O2SAT 98–100
[2017-07-06] MEDS: PIPERACIL-TAZO 4.5 GM PREMIX 100 ML IV SCH ×5 (00:15→22:36)
[2017-07-06] MEDS: CHLORHEXIDINE GLUCONATE 2 % 1 PACK (2 CLOTHS) TOP SCH (04:00)
[2017-07-06] MEDS: fentaNYL DRIP 250 ML IV PRN (04:21)
[2017-07-06 04:47] LABS: BICARBONATE 28.1 MEQ/L (21.0-32.0); CALCIUM 7.8 MG/DL (8.5-10.1); CREATININE 0.98 MG/DL (0.50-1.00)
[2017-07-06 04:51] LABS: HEMATOCRIT 23.1 % (35.0-46.0); MEAN CELL VOLUME 89.2 FL (80.0-100.0); MEAN CORPUSCULAR HEMOGLOBIN 30.9 PG (27.0-34.0); MEAN CORPUSCULAR HGB CONC 34.6 % (32.0-36.0); MEAN PLATELET VOLUME 8.4 FL (7.0-11.0); PLATELET COUNT 226 TH/MM3 (150-450); RED BLOOD COUNT 2.59 MIL/MM3 (4.00-5.30); RED CELL DISTRIBUTION WIDTH 13.2 % (11.6-17.2); WHITE BLOOD COUNT 7.5 TH/MM3 (4.0-11.0)
[2017-07-06] MEDS: ARTIFICIAL TEARS OPTH SOLN 15 ML BTL EACH EYE SCH ×3 (05:32→22:00)
[2017-07-06] MEDS: METOCLOPRAMIDE HCL 10 MG/2 ML VIAL IV PUSH SCH ×3 (05:32→22:00)
[2017-07-06] MEDS: RESP: ALBUTEROL 2.5 MG/IPRATROPIUM 0.5 MG NEB (SCH) NEB ×3 (07:47→20:59)
[2017-07-06] MEDS: CHLORHEXIDINE 0.12% (ORAL KIT) 15 ML CUP MT SCH ×2 (08:00→20:00)
[2017-07-06] MEDS: FAMOTIDINE 20 MG TAB PO SCH ×2 (08:07→20:36)
[2017-07-06] MEDS: FOLIC ACID 1 MG TAB PO SCH (08:08)
[2017-07-06] MEDS: levETIRAcetam 500 MG TAB PO SCH ×2 (08:08→20:36)
[2017-07-06] MEDS: METOPROLOL TARTRATE 25 MG TAB PO SCH ×2 (08:08→20:36)
[2017-07-06] MEDS: SENNOSIDES SYRUP 8.8 MG/5 ML CUP PO SCH ×2 (09:00→20:37)
[2017-07-06] MEDS: DOCUSATE SODIUM 100 MG/10 ML UDC PO SCH ×2 (09:00→20:36)
[2017-07-06] MEDS: POLYETHYLENE GLYCOL 17 GM PKG PO SCH ×2 (09:00→20:36)
[2017-07-06] MEDS ORDERED: ACETAMINOPHEN 650 MG/20.3 ML UDC PO PRN (13:30)
--- NOTE | 2017-07-06 13:31 | HHI.CCPN ---
Subjective Remarks/Hospital Course Severely dehydrated, elderly woman presents confused to [facility] ED with hypertensive urgency and semi-acute right hemispheric parenchymal brain hemorrhage. Arrived from [facility] on cardene gtt and aphasic. Handness not determined yet. Unable to get ROS. No anticoagulants. INR normal. 06/16: Flaccid left side. Minimal eye opening. Moves right arm and leg to stimulation. Breathes over vent. ICP control, EVD draining well. 06/17: Moving both arms, right much stronger. More alert but episodic apnea spells. 06/18: No events over the night. Patient remains intubated, off sedation. She is currently on pressure support, 01/04, doing well. Awake, following commands. Son present at bedside. T-max of 99.6. I/O 250/1545. 06/19: No events over the night. Patient did well yesterday on pressure support , but was not able to be extubated secondary to no cuff leak. She remains on Cardene currently at 9.5 mg/h. Afebrile with a T-max of 99.4. Negative fluid balance. 06/20: Patient did well over the night. T-max of 100.2. ICP of 4. Thick sputum secretions sent yesterday for culture now growing Staphylococcus. Patient is awake, off sedation following some commands. Off Cardene drip since yesterday. 06/21: Patient did well postextubation and over the night. T-max of 100 yesterday morning. Very good urine output. Patient awake following commands, denying any pain. 06/22: No events over the night. Patient doing well. She is awake and alert, denies headache, nausea, vomiting. No chest pain, no dyspnea, no palpitations. On 2 L nasal cannula. Afebrile over the last 24 hours. Diuresed well post Lasix and she is on negative fluid balance since admission. 06/23: Patient awake, feels better, denies chest pain, shortness of breath, palpitations, headache. Still has productive cough. Afebrile, urine output is adequate. 06/24: No events over the night. Patient afebrile over the last 24 hours. She remains awake, resting in bed, denies any complaints. Sons at bedside. 06/25: Resting comfortably. Drowsy, arousable. EVD at 15cm, drained 60 cc overnight. 06/26: Resting comfortably. Awake and alert. EVD in place drain 10 cc overnight however has some clear fluid draining around ventriculostomy site. Dr. Nixon planning SOLDERING MACHINE TENDER shunt for tomorrow. 06/27: Afebrile. Less arousable today. Eyes are closed. Subjective left-sided weakness. EVD in place at 20 cm. 4 cc overnight. On cefazolin with clear fluid draining from ventriculostomy site. MRI brain currently pending. 06/28: Afebrile. Intubated yesterday secondary to altered mental status/ aspiration. Arousable and follows commands in the ventilator. 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 Echocardiogram pending. Possibly some right carotid stenosis on carotid ultrasound which does not correlate to this current acute left MCA CVA 06/29: Afebrile. More arousable today. Spontaneously moving left upper extremity. Opens eyes to voice. Not following commands. Tolerating tube feeds at goal. 06/30: Resting in bed in no acute distress. More arousable today. Spontaneously moving left upper extremity. Opens eyes to voice. No bowel movement 07/01: T-max 99.8. Currently 99.3. Opens eyes to voice. Squeezes bilateral hands right greater than left. Not following commands however. Tolerating spontaneous breathing trial 07/02: T-max 100.1. Currently afebrile. Did not tolerate CPAP trial today. Slightly more responsive today briefly follow commands right greater than left. Tolerating tube feeding. 07/03: Tolerating CPAP trial today. T-max 100.1. Currently 98.5. 2 bowel movements. More arousable and alert today 07/04: on PSV 10/5/40%. more awake today. follows commands. 07/05: continues to be more awake and alert, but also continues to fail CPAP trials. becomes tachypneic and distress. Subjective 07/06: Afebrile. Arousable and follows commands. Neurologically stable. Tolerating tube feeding. On PSV trial since 1050 but currently going to back up mode secondary to apnea Objective Vital Signs Date Time Temp Pulse Resp B/P (MAP) Pulse Ox O2 Delivery O2 Flow Rate FiO2 07/06/17 12:00 40 07/06/17 12:00 98.8 68 15 139/63 (88) 100 07/05/17 19:00 Mechanical Ventilator 07/04/17 19:00 2.00 Intake and Output 07/06/17 07/06/17 07/06/17 07:59 15:59 23:59 Intake Total 1118 ml 100 ml Output Total 735 ml Balance 383 ml 100 ml Result Diagram: 07/06/17 0349 07/06/17 0349 Other Results Microbiology Date/Time Source Procedure Growth Status 06/29/17 20:02 Blood Peripheral Aerobic Blood Culture - Final NO GROWTH IN 5 DAYS Complete 06/29/17 20:02 Blood Peripheral Anaerobic Blood Culture - Final NO GROWTH IN 5 DAYS Complete 06/27/17 11:20 Cerebral Spinal Fluid Shunt Fluid Gram Stain - Final Complete 06/27/17 11:20 Cerebral Spinal Fluid Shunt Fluid CSF Culture - Final NO GROWTH IN 72 HRS.--AEROBICALLY OR ... Complete 06/30/17 12:30 Sputum Endotracheal Gram Stain - Final Complete 06/30/17 12:30 Sputum Culture - Final Klebsiella Pneumoniae Serratia Plymuthica Complete Imaging Last Impressions Chest X-Ray 07/02/17 06 Signed Impressions: Service Date/Time: Sunday, July 02, 2017 04:23 - CONCLUSION: No significant change Harsha Wen MD Abdomen X-Ray 07/01/17 06 Signed Impressions: Service Date/Time: Saturday, July 01, 2017 04:18 - CONCLUSION: 1. Nonspecific bowel gas pattern without evidence for obstruction or free air. Ivan Bahena MD Carotid Artery Ultrasound 06/27/17 0000 Signed Impressions: Service Date/Time: Tuesday, June 27, 2017 12:59 - CONCLUSION: 1. Moderate diffuse atherosclerotic plaquing at both carotid bifurcations. 2. Mild elevated velocity in the proximal right internal carotid artery. If clinically indicated , recommend CTA of the carotid arteries for further evaluation. 3. No definite high grade or hemodynamically significant stenosis is demonstrated. David Moore MD Brain MRI 06/27/17 0000 Signed Impressions: Service Date/Time: Tuesday, June 27, 2017 09:23 - CONCLUSION: 1. New development of a nonhemorrhagic acute infarct involving the left occipital lobe. 2. Otherwise, the rest of the exam is stable compared to the prior MRI. David Moore MD Head CT 06/26/17 0000 Signed Impressions: Service Date/Time: Monday, June 26, 2017 10:08 - CONCLUSION: 1. Continued evolution of right cerebral hematoma with slightly increasing surrounding edema. 2. No new hemorrhage identified. 3. Continued ventricular dilatation with no further decompression following placement of ventriculostomy. 4. No significant shift of midline structures. Rene Lomeli MD Head Magnetic Resonance Angiography 06/15/17 0000 Signed Impressions: Service Date/Time: Thursday, June 15, 2017 11:52 - CONCLUSION: MRA within normal limits. There is a parenchymal hemorrhage in the posterior right temporal lobe with intraventricular extension. Ivan Bahena MD Objective Remarks General - 77-year-old female, orotracheally intubated HEENT - pupils are equal and reactive about 2.5-3 mm bilaterally, sclerae are anicteric, neck is supple, neck veins are not distended, Left frontal [place] hole with placement of a ventriculostomy catheter -5 cm H2O, moist mucous membranes. Ventriculostomy 190 cc CV -RRR. sinus Chest - equal chest rise. psv 10/5/40%. unlabored. Abdomen - soft, nontender, not distended, no guarding. Extremities -warm, 1+ edema, + peripheral pulses Neuro -arousable on the ventilator and follows commands. Left gaze preference. , no facial asymmetry, squeezes fingers on both upper extremities but weak left side subjectively weaker than right strength 3 out of 5, wiggles toes to command Urinary Catheter: No Assessment to: Continue Vascular Central Line Catheter: No Assessment to: Continue A/P Assessment and Plan Neuro/Psych: Right posterior temporal/occipital/parietal intra-axial hematoma Left MCA posterior temporal occipital CVA Right complex partial seizure Wernicke aphasia Acute encephalopathy Currently on fentanyl drip off. Previously 25 mg an hour for sedation while intubated CT brain 06/25 revealed a right occipital parietal intra-axial hematoma with mild surrounding edema. Right ventriculostomy placed 06/27-currently 5 cm H2O. MRI brain revealed a left MCA CVA involving the left posterior temporal occipital region On levetiracetam 500 mg twice daily for seizure. Acetaminophen 650 mg p.o. every 6 hours as needed fever/pain 1 through 10 MRI brain admission revealed right posterior temporal hemorrhage with ventricular extension MRA brain negative for aneurysm Carotid Dopplers with possible right carotid stenosis. Does not explain acute left MCA CVA. ESR, CRP and hypercoagulable workup pending Followed by Dr. Crowell neurology CV: Hypertensive emergency Dyslipidemia Currently on metoprolol 25 mg by mouth twice daily Currently on pravastatin 40 mg daily/on atorvastatin 40 mg daily at home Holding aspirin 81 mg daily in light of acute hemorrhage 06/29 echo - Normal left ventricular size. Mild concentric left ventricular hypertrophy. The left ventricular systolic function is hyperdynamic with an estimated ejection fraction in the range of 65-70%. Mitral annular calcification is present. There is trace tricuspid valve regurgitation. The estimated pulmonary arterial pressure is 43 mmHg. Resp: Acute hypoxic and hypercarbic respiratory failure secondary to aspiration Reintubated secondary to new acute CVA with aspiration PRVC ventilation. CPAP trials as tolerated Ventilator bundle Albuterol/ipratropium aerosols every 6 hours alternate nebs with albuterol aerosols every 2 hours as needed dyspnea Spontaneous breathing trials daily GI: Hypoalbuminemia Constipation Jevity 1.5 at 50 cc an hour at goal Famotidine 20 mg twice daily for GI prophylaxis Docusate sodium/senna 1 tablet twice daily for bowel regimen. Continue polyethylene glycol 17 g twice daily, : no indication for kent catheter. Endo: Sliding scale insulin if indicated to maintain euglycemia Renal: Creatinine currently within normal limits Monitor urine output Accurate I's and O's Heme: Normocytic anemia Monitor CBC daily. Follow trend Hypercoagulable workup currently in process ID: Serratia plymithica, MSSA and Klebsiella pneumonia Completed cefazolin 2 g IV every 8 hours day #7 Switch to penicillin/tazobactam day #6 Pertinent cultures 06/30 -sputum -Serratia Plymithica/Klebsiella pneumonia 06/29 -blood cultures 2 -no growth 06/18 -staph aureus/Klebsiella pneumonia sputum FEN: Replace electrolytes as clinically indicated MSK: Osteoarthritis/osteoporosis Holding alendronate 70 mg weekly. Resume clinically indicated Access -Utilize peripheral IV. Central line if indicated Prophylaxis -GI -famotidine -DVT -SCD/holding pharmacological prophylaxis in light of cerebral hematoma. Initiate when okay with neurosurgery Level 2 follow-up Osman Babin MD Jul 06, 2017 13:31
--- NOTE | 2017-07-06 13:38 | HHI.NSPN ---
(Bell Mooney) Note Status Status: Progress Note (Bell Mooney) Interval History Interval History 77 year old female with large hemorrhage stroke with hydrocephalus, worsening mental status, patient became severely obtunded difficult to arouse, she underwent placement of ventriculostomy drain 06/15/1706/16: ventriculostomy draining well, intubated, opening eyes and moving right side spontaneously. 06/18: ventriculostomy draining well, remains intubated, opens eyes, tracks, moves right side, stable left paresis 06/19: ventriculostomy draining well, CSF still bloody, dark red. opens eyes and moves right side spontaneously 06/20: ventriculostomy draining well, still gross bloody CSF, intubated, but opens eyes and gave thumbs up to command 06/25: Awake, ventriculostomy draining, drain raised to 15 cm of water over the weekend with stable ICPs. 06/26: EVD raised to 20 cm H20 yesterday, ICPs remains stable overnight, however appears more lethargic today, minimally opens eyes but falls back asleep. 06/27: MRI Brain this morning with new acute nonhemorrhagic left occipital infarct. 06/28: left ventriculostomy draining well, intubated and sedated. 07/02: ventriculostomy draining well, remains intubated. ICPs low. 07/03: ICPs stable overnight, intubated, no sedatives, awake, following simple commands. ventriculostomy draining well. 07/04: remains awake, alert, follows commands. still intubated. ventriculostomy draining well, ICPs controlled overnight. 07/05: continues to be intubated, mildly sedated due to vent restlessness. ventriculostomy continues to drain well, ICPs stable. 07/06: remains intubated, CPAP trials continues. no change in neuro exam. EVD draining well. (Bell Mooney) Labs, Micro, & Vital Signs Results Date Time Temp Pulse Resp B/P (MAP) Pulse Ox O2 Delivery O2 Flow Rate FiO2 07/06/17 12:00 40 07/06/17 12:00 98.8 68 15 139/63 (88) 100 07/06/17 12:00 66 07/06/17 10:55 40 07/06/17 10:49 99 40 07/06/17 10:00 65 07/06/17 09:44 40 07/06/17 08:00 99.3 66 14 121/58 (79) 100 07/06/17 08:00 40 07/06/17 08:00 66 07/06/17 07:45 99 40 07/06/17 06:00 64 07/06/17 04:27 98 40 07/06/17 04:00 40 07/06/17 04:00 98.8 75 22 121/60 (80) 100 07/06/17 04:00 68 07/06/17 02:00 62 07/06/17 00:44 99 40 07/06/17 00:00 98.3 60 16 137/61 (86) 100 07/06/17 00:00 40 07/06/17 00:00 60 07/05/17 22:00 60 07/05/17 20:35 100 40 07/05/17 20:00 98.3 64 18 128/60 (82) 99 07/05/17 20:00 62 07/05/17 20:00 40 07/05/17 19:00 100 Mechanical Ventilator 40 07/05/17 18:00 61 07/05/17 17:40 40 07/05/17 16:00 62 07/05/17 16:00 98.3 62 16 121/61 (81) 99 07/05/17 16:00 40 07/05/17 14:29 100 40 07/05/17 14:00 63 07/07/17 07:00 Intake Total 100 ml Balance 100 ml Constitutional Vital Signs Date Time Temp Pulse Resp B/P (MAP) Pulse Ox O2 Delivery O2 Flow Rate FiO2 07/06/17 12:00 40 07/06/17 12:00 98.8 68 15 139/63 (88) 100 07/06/17 12:00 66 07/06/17 10:55 40 07/06/17 10:49 99 40 07/06/17 10:00 65 07/06/17 09:44 40 07/06/17 08:00 99.3 66 14 121/58 (79) 100 07/06/17 08:00 40 07/06/17 08:00 66 07/06/17 07:45 99 40 07/06/17 06:00 64 07/06/17 04:27 98 40 07/06/17 04:00 40 07/06/17 04:00 98.8 75 22 121/60 (80) 100 07/06/17 04:00 68 07/06/17 02:00 62 07/06/17 00:44 99 40 07/06/17 00:00 98.3 60 16 137/61 (86) 100 07/06/17 00:00 40 07/06/17 00:00 60 07/05/17 22:00 60 07/05/17 20:35 100 40 07/05/17 20:00 98.3 64 18 128/60 (82) 99 07/05/17 20:00 62 07/05/17 20:00 40 07/05/17 19:00 100 Mechanical Ventilator 40 07/05/17 18:00 61 07/05/17 17:40 40 07/05/17 16:00 62 07/05/17 16:00 98.3 62 16 121/61 (81) 99 07/05/17 16:00 40 07/05/17 14:29 100 40 07/05/17 14:00 63 07/07/17 07:00 Intake Total 100 ml Balance 100 ml (Bell Mooney) Physical Exam Ms. Patrick is intubated. Awake, intermittently follows simple commands. HEENT: Left ventriculostomy at 5 cm H20 draining blood tinged CSF. ICPs=3 clamped. Site is clean and dry without signs of infection. Nonicteric sclera Cranial Nerves: Pupils equal, round reactive. Gross eoms intact, tracking. Cervical Spine: soft, supple Motor: spontaneous movements, follows gross movements to LE's to commands, moves upper extremities spontaneously, squeezed to command. Sensory: withdraws to pain stimuli Heart: regular rate rhythm Lungs: clear (Bell Mooney) Ms. Patrick is intubated. Awake, intermittently follows simple commands. HEENT: Left ventriculostomy at 5 cm H20 draining blood tinged CSF. ICPs=3 clamped. Site is clean and dry without signs of infection. Nonicteric sclera Cranial Nerves: Pupils equal, round reactive. Gross eoms intact, tracking. Cervical Spine: soft, supple Motor: spontaneous movements, follows gross movements to LE's to commands, moves upper extremities spontaneously, squeezed to command. Sensory: withdraws to pain stimuli Heart: regular rate rhythm Lungs: clear (Andre Nixon MD) Medications Current Medications Current Medications Medications (Trade) Dose Ordered Sig/Jose Guadalupe Route PRN Reason Start Time Stop Time Status Last Admin Dose Admin Sodium Chloride (NS Flush) 2 ml UNSCH PRN IV FLUSH FLUSH AFTER USING IV ACCESS 06/15/17 05:15 07/02/17 10:18 Ondansetron HCl (Zofran Inj) 4 mg Q6H PRN IV PUSH NAUSEA OR VOMITING 06/15/17 06:30 Miscellaneous Information 1 Q361D XX 06/15/17 06:30 06/15/17 06:30 Chlorhexidine Gluconate (Chlorhexidine 2% Cloth) 3 pack Taper DAILY@04 TOP 06/16/17 04:00 06/12/18 03:59 06/20/17 04:00 Chlorhexidine Gluconate (Chlorhexidine 2% Cloth) 3 pack UNSCH PRN TOP HYGIENIC CARE 06/15/17 06:30 Magnesium Hydroxide (Milk Of Magnesia Liq) 30 ml Q12H PRN PO Mild constipation 06/15/17 06:30 06/22/17 20:58 Sennosides (Senokot) 17.2 mg Q12H PRN PO Moderate constipation 06/15/17 06:30 Bisacodyl (Dulcolax Supp) 10 mg DAILY PRN RECTAL SEVERE CONSITIPATION 06/15/17 06:30 Lactulose (Lactulose Liq) 30 ml DAILY PRN PO SEVERE CONSITIPATION 06/15/17 06:30 06/22/17 20:58 Chlorhexidine Gluconate (Peridex 0.12% Liq) 15 ml BID@08,20 MT 06/15/17 20:00 07/05/17 21:34 Levetriacetam (Keppra) 500 mg Q12HR PO 06/17/17 11:30 07/06/17 08:08 Pravastatin Sodium (Pravachol) 40 mg HS PO 06/18/17 21:00 07/05/17 21:32 Metoprolol Tartrate (Lopressor) 25 mg Q12HR PO 06/19/17 09:00 07/06/17 08:08 Hydralazine HCl (Apresoline Inj) 10 mg Q4H PRN IV PUSH SBP greater than 160 06/20/17 12:30 07/01/17 11:34 Albuterol Sulfate (Albuterol Neb) 2.5 mg Q2HR NEB PRN NEB dyspnea 06/27/17 09:15 Labetalol HCl (Trandate Inj) 10 mg Q1HR PRN IV PUSH SBP>160, DBP>90, HR>65 06/27/17 09:15 06/30/17 05:37 Propofol 100 ml @ 2.073 mls/ hr TITRATE PRN IV SEDATION 06/27/17 11:00 06/28/17 13:58 Fentanyl Citrate 250 ml @ 5 mls/hr TITRATE PRN IV SEDATION 06/27/17 11:00 07/06/17 04:21 Artificial Tears (Tears Naturale Opth Soln) 1 drop Q8HR EACH EYE 06/28/17 17:00 07/06/17 05:32 Polyethylene Glycol (Miralax) 17 gm BID PO 06/28/17 21:00 07/02/17 10:18 Metoclopramide HCl (Reglan Inj) 5 mg Q8HR IV PUSH 06/29/17 22:00 07/06/17 12:26 Docusate Sodium (Colace Liq) 100 mg Q12HR PO 06/29/17 21:00 07/02/17 20:11 Sennosides (Senna Liq) 8.8 mg BID PO 06/29/17 21:00 07/06/17 09:00 Piperacillin Sod/ Tazobactam Sod 100 ml @ 200 mls/hr Q6H IV 06/30/17 11:00 07/07/17 11:00 07/06/17 12:25 Famotidine (Pepcid) 20 mg BID PO 07/03/17 21:00 07/06/17 08:07 Folic Acid (Folate) 1 mg DAILY PO 07/04/17 09:15 07/06/17 08:08 Albuterol/ Ipratropium (Duoneb Neb) 1 ampule Q6HR ALT NEB NEB 07/06/17 19:00 UNV Acetaminophen (Tylenol 650 Mg/ 20 ml Liq) 650 mg Q6H PRN PO fever 07/06/17 13:30 UNV (Bell Mooney) Current Medications Current Medications Sodium Chloride (NS Flush) 2 ml UNSCH PRN IV FLUSH FLUSH AFTER USING IV ACCESS Last administered on 07/02/17 10:18; Start 06/15/17 at 05:15 Sodium Chloride 500 ml @ 500 mls/hr BOLUS ONCE IV ; Start 06/15/17 at 06:00; Stop 06/15/17 at 06:59; Status DC Nicardipine HCl 25 mg/Sodium Chloride 250 ml @ 50 mls/hr TITRATE PRN IV Blood pressure management Last administered on 06/19/17at 06:43; Start 06/15/17 at 06: 15; Stop 06/23/17 at 17:33; Status DC Pravastatin Sodium (Pravachol) 80 mg HS PO Last administered on 06/17/17at 23:23 ; Start 06/15/17 at 21:00; Stop 06/18/17 at 09:30; Status DC Levetriacetam 100 ml @ 400 mls/hr BOLUS ONCE IV Last administered on at 09:43; Start 06/15/17 at 06:30; Stop 06/15/17 at 06:44; Status DC Sodium Chloride 1,000 ml @ 100 mls/hr Q10H IV Last administered on 06/17/17at 07:29; Start 06/15/17 at 06:17; Stop 06/17/17 at 12:42; Status DC Acetaminophen (Tylenol) 650 mg Q6H PRN PO PAIN 1-10 AND/OR FEVER >101F Last administered on 06/23/17at 20:18; Start 06/15/17 at 06:30; Stop 07/06/17 at 13:27 ; Status DC Morphine Sulfate (Morphine Inj) 2 mg Q2H PRN IV PUSH PAIN SCALE 6 TO 10 Last administered on 06/19/17at 08:29; Start 06/15/17 at 06:30; Stop 06/20/17 at 08:25 ; Status DC Famotidine (Pepcid Inj) 10 mg Q12HR IV PUSH Last administered on 06/25/17at 08: 45; Start 06/15/17 at 09:00; Stop 06/25/17 at 16:28; Status DC Ondansetron HCl (Zofran Inj) 4 mg Q6H PRN IV PUSH NAUSEA OR VOMITING; Start at 06:30 Albuterol/ Ipratropium (Duoneb Neb) 1 ampule Q4HR NEB PRN INH WHEEZING; Start 06/15/17 at 06:30; Stop 06/27/17 at 09:15; Status DC Miscellaneous Information 1 Q361D XX Last administered on 06/15/17at 06:30; Start 06/15/17 at 06:30 Chlorhexidine Gluconate (Chlorhexidine 2% Cloth) 3 pack Taper DAILY@04 TOP Last administered on 06/20/17at 04:00; Start 06/16/17 at 04:00; Stop 06/12/18 at 03:59 Chlorhexidine Gluconate (Chlorhexidine 2% Cloth) 3 pack UNSCH PRN TOP HYGIENIC CARE; Start 06/15/17 at 06:30 Senna/Docusate Sodium ([place]-Colace) 1 tab BID PO Last administered on at 08:00; Start 06/15/17 at 09:00; Stop 06/29/17 at 15:16; Status DC Magnesium Hydroxide (Milk Of Magnesia Liq) 30 ml Q12H PRN PO Mild constipation Last administered on 06/22/17at 20:58; Start 06/15/17 at 06:30 Sennosides (Senokot) 17.2 mg Q12H PRN PO Moderate constipation; Start 06/15/17 at 06:30 Bisacodyl (Dulcolax Supp) 10 mg DAILY PRN RECTAL SEVERE CONSITIPATION; Start at 06:30 Lactulose (Lactulose Liq) 30 ml DAILY PRN PO SEVERE CONSITIPATION Last administered on 06/22/17at 20:58; Start 06/15/17 at 06:30 Rocuronium [facility] (Zemuron Inj) 100 mg BOLUS ONCE IV Last administered on at 14:34; Start 06/15/17 at 14:00; Stop 06/15/17 at 14:01; Status DC Midazolam HCl (Versed Inj) 5 mg ONCE ONCE IV PUSH Last administered on at 14:35; Start 06/15/17 at 14:00; Stop 06/15/17 at 14:01; Status DC Chlorhexidine Gluconate (Peridex 0.12% Liq) 15 ml BID@08,20 MT Last administered on 07/09/17at 10:00; Start 06/15/17 at 20:00 Propofol 100 ml @ 0 mls/hr TITRATE PRN IV SEDATION; Start 06/15/17 at 14:00; Status UNV Midazolam HCl (Versed Inj) 5 mg STK-MED ONCE .ROUTE ; Start 06/15/17 at 14:07; Stop 06/15/17 at 14:08; Status DC Rocuronium [facility] (Zemuron Inj) 50 mg STK-MED ONCE .ROUTE ; Start 06/15/17 at 14:07; Stop 06/15/17 at 14:08; Status DC Propofol 100 ml @ 1.941 mls/ hr TITRATE PRN IV SEDATION Last administered on at 14:41; Start 06/15/17 at 14:45; Stop 06/21/17 at 14:09; Status DC Miscellaneous Information (RASS Change Order) 1 ea ONCE ONCE XX Last administered on 06/15/17at 14:45; Start 06/15/17 at 14:45; Stop 06/15/17 at 14:46 ; Status DC Norepinephrine Bitartrate 4 mg/ Sodium Chloride 250 ml @ 7.5 mls/hr TITRATE PRN IV Maintain MAP > 70 mmHg; Start 06/15/17 at 19:45; Stop 06/15/17 at 21:37; Status DC Norepinephrine Bitartrate 4 mg/ Sodium Chloride 250 ml @ 7.5 mls/hr TITRATE PRN IV Maintain MAP > 70 mmHg Last administered on 06/15/17at 19:00; Start at 21:45; Stop 06/20/17 at 08:11; Status DC Levetriacetam (Keppra) 500 mg Q12HR PO Last administered on 07/09/17at 09:59; Start 06/17/17 at 11:30 Potassium Chloride 20 meq/ Lactated Ringer's 1,010 ml @ 42 mls/hr Q24H IV ; Start 06/17/17 at 12:45; Stop 06/17/17 at 13:02; Status DC Potassium Chloride 10 meq/ Lactated Ringer's 505 ml @ 42 mls/hr Q12H2M IV Last administered on 06/19/17at 22:32; Start 06/17/17 at 13:15; Stop 06/20/17 at 08:13; Status DC Pravastatin Sodium (Pravachol) 40 mg HS PO Last administered on 07/08/17at 21:15 ; Start 06/18/17 at 21:00 Potassium Phosphate 15 mmol/ Sodium Chloride 155 ml @ 38.75 mls/ hr ONCE ONCE IV Last administered on 06/19/17at 08:50; Start 06/19/17 at 08:00; Stop at 11:59; Status DC Metoprolol Tartrate (Lopressor) 25 mg Q12HR PO Last administered on 07/09/17at 10 :00; Start 06/19/17 at 09:00 Pharmacy Profile Note 0 ml @ 0 mls/hr UNSCH OTHER ; Start 06/20/17 at 08:15; Stop 06/21/17 at 14:09; Status DC Albuterol/ Ipratropium (Duoneb Neb) 1 ampule Q6HR NEB NEB Last administered on 06/24/17at 07:16; Start 06/20/17 at 10:00; Stop 06/24/17 at 09:59; Status DC Vancomycin HCl 1250 mg/Sodium Chloride 262.5 ml @ 262.5 mls/ hr ONCE ONCE IV Last administered on 06/20/17at 13:29; Start 06/20/17 at 12:00; Stop 06/20/17 at 12:59; Status DC Hydralazine HCl (Apresoline Inj) 10 mg Q4H PRN IV PUSH SBP greater than 160 Last administered on 07/01/17at 11:34; Start 06/20/17 at 12:30 Potassium Phosphate 15 mmol/ Sodium Chloride 155 ml @ 38.75 mls/ hr ONCE ONCE IV Last administered on 06/20/17at 17:05; Start 06/20/17 at 13:45; Stop at 17:44; Status DC Furosemide (Lasix Inj) 40 mg ONCE ONCE IV PUSH Last administered on 06/21/17at 08:53; Start 06/21/17 at 08:30; Stop 06/21/17 at 08:31; Status DC Cefazolin Sodium/ Dextrose 50 ml @ 100 mls/hr Q8H IV Last administered on 06/24at 15:02; Start 06/21/17 at 15:00; Stop 06/24/17 at 21:47; Status DC Cefazolin Sodium 2000 mg/Sodium Chloride 120 ml @ 240 mls/hr Q8H IV Last administered on 06/30/17at 06:06; Start 06/24/17 at 23:00; Stop 06/30/17 at 10:37 ; Status DC Famotidine (Pepcid) 10 mg BID PO Last administered on 07/03/17at 08:48; Start at 21:00; Stop 07/03/17 at 20:13; Status DC Chlorhexidine Gluconate (Hibiclens 4% Top Soln) 1 applic HS TOP Last administered on 06/27/17at 05:56; Start 06/26/17 at 21:00; Stop 06/28/17 at 21:01 ; Status DC Acetaminophen 100 ml @ As Directed STK-MED ONCE IV ; Start 06/27/17 at 07:04; Stop 06/27/17 at 07:05; Status DC Artificial Tears (Lacrilube Opht Oint) 3.5 applic STK-MED ONCE .ROUTE ; Start at 07:05; Stop 06/27/17 at 07:06; Status DC Lidocaine/ Epinephrine (Xylocaine-Epi 1%-1:100,000 Inj) 30 ml STK-MED ONCE .ROUTE ; Start 06/27/17 at 07:32; Stop 06/27/17 at 07:33; Status DC Thrombin (Thrombin Top Soln) 10,000 units STK-MED ONCE .ROUTE ; Start 06/27/17 at 07:32; Stop 06/27/17 at 07:33; Status DC Gelatin (Gelfoam 100 Top) 1 foam STK-MED ONCE .ROUTE ; Start 06/27/17 at 07:32; Stop 06/27/17 at 07:33; Status DC Bacitracin (Baciguent Oint) 15 applic STK-MED ONCE .ROUTE ; Start 06/27/17 at 07 :32; Stop 06/27/17 at 07:33; Status DC Gentamicin Sulfate (Gentamicin Inj) 240 mg STK-MED ONCE .ROUTE ; Start 06/27/17 at 07:33; Stop 06/27/17 at 07:34; Status DC Albuterol Sulfate (Albuterol Neb) 2.5 mg Q2HR NEB PRN NEB dyspnea; Start at 09:15 Labetalol HCl (Trandate Inj) 10 mg Q1HR PRN IV PUSH SBP>160, DBP>90, HR>65 Last administered on 07/08/17at 15:08; Start 06/27/17 at 09:15 Polyethylene Glycol (Miralax) 17 gm ONCE ONCE PO ; Start 06/27/17 at 09:15; Stop 06/27/17 at 09:19; Status DC Polyethylene Glycol (Miralax) 17 gm DAILY PO Last administered on 06/28/17at 08: 31; Start 06/28/17 at 09:00; Stop 06/28/17 at 15:18; Status DC Glycerin (Glycerin Adult Supp) 2 gm ONCE ONCE RECTAL ; Start 06/27/17 at 09:15 ; Stop 06/27/17 at 09:20; Status DC Sodium Chloride (Sodium Chloride) 1 gm ONCE ONCE PO ; Start 06/27/17 at 09:45; Stop 06/27/17 at 10:35; Status DC Propofol (Diprivan 500 Mg/ 50 ml Inj) 100 mg ONCE ONCE IV Last administered on 06/27/17at 11:10; Start 06/27/17 at 11:00; Stop 06/27/17 at 11:01; Status DC Chlorhexidine Gluconate (Peridex 0.12% Liq) 15 ml BID@08,20 MT ; Start 06/27/17 at 20:00; Status Cancel Propofol 100 ml @ 2.073 mls/ hr TITRATE PRN IV SEDATION Last administered on at 13:58; Start 06/27/17 at 11:00 Fentanyl Citrate 250 ml @ 5 mls/hr TITRATE PRN IV SEDATION Last administered on 07/06/17at 04:21; Start 06/27/17 at 11:00 Lidocaine HCl (Xylocaine 2% Inj) 100 mg ONCE ONCE IV PUSH Last administered on 06/27/17at 13:34; Start 06/27/17 at 11:00; Stop 06/27/17 at 11:01; Status DC Etomidate (Amidate Inj) 40 mg ONCE ONCE IV PUSH Last administered on 13:34; Start 06/27/17 at 11:00; Stop 06/27/17 at 11:01; Status DC Rocuronium [facility] (Zemuron Inj) 100 mg BOLUS ONCE IV Last administered on at 13:35; Start 06/27/17 at 11:30; Stop 06/27/17 at 11:31; Status DC Lidocaine/ Epinephrine (Xylocaine-Epi 1%-1:100,000 Inj) 30 ml STK-MED ONCE .ROUTE ; Start 06/27/17 at 10:50; Stop 06/27/17 at 10:51; Status DC Rocuronium [facility] (Zemuron Inj) 100 mg STK-MED ONCE .ROUTE ; Start 06/27/17 at 10:51; Stop 06/27/17 at 10:52; Status DC Artificial Tears (Tears Naturale Opth Soln) 1 drop Q8HR EACH EYE Last administered on 07/09/17 10:49; Start 06/28/17 at 17:00 Polyethylene Glycol (Miralax) 17 gm BID PO Last administered on 07/09/17 09:59 ; Start 06/28/17 at 21:00 Lactulose (Lactulose Liq) 30 ml QID PO Last administered on 07/01/17 13:08; Start 06/28/17 at 18:00; Stop 07/01/17 at 14:12; Status DC Mineral Oil (Kondremul Liq) 30 ml ONCE ONCE PO Last administered on 06/28/17 16:54; Start 06/28/17 at 17:00; Stop 06/28/17 at 17:01; Status DC Glycerin (Glycerin Adult Supp) 2 gm ONCE ONCE RECTAL Last administered on 06/28 16:54; Start 06/28/17 at 17:00; Stop 06/28/17 at 17:01; Status DC Methylnaltrexone [facility] (Relistor Inj) 12 mg ONCE ONCE SQ Last administered on 06/28/17 17:20; Start 06/28/17 at 17:00; Stop 06/28/17 at 17:01; Status DC Metoclopramide HCl (Reglan Inj) 5 mg Q8HR IV PUSH Last administered on 4/8/ 18at 21:15; Start 06/29/17 at 22:00 Methylnaltrexone [facility] (Relistor Inj) 12 mg ONCE ONCE SQ Last administered on 06/29/17at 17:14; Start 06/29/17 at 15:15; Stop 06/29/17 at 15:30; Status DC Docusate Sodium (Colace Liq) 100 mg Q12HR PO Last administered on 07/09/17at 09: 59; Start 06/29/17 at 21:00 Sennosides (Senna Liq) 8.8 mg BID PO Last administered on 07/09/17at 09:59; Start 06/29/17 at 21:00 Mineral Oil (Kondremul Liq) 30 ml ONCE ONCE PO Last administered on 06/29/17at 15:15; Start 06/29/17 at 15:15; Stop 06/29/17 at 15:30; Status DC Glycerin (Glycerin Adult Supp) 2 gm ONCE ONCE RECTAL Last administered on 06/29at 15:15; Start 06/29/17 at 15:15; Stop 06/29/17 at 15:30; Status DC Magnesium Citrate (Citroma Liq) 300 ml ONCE ONCE PO ; Start 06/30/17 at 10:45; Stop 06/30/17 at 10:49; Status DC Mineral Oil (Fleet Mineral Oil Enema) 118 ml ONCE ONCE RECTAL ; Start 06/30/17 at 10:45; Stop 06/30/17 at 10:49; Status DC Mineral Oil (Kondremul Liq) 30 ml ONCE ONCE PO ; Start 06/30/17 at 10:45; Stop 06/30/17 at 10:49; Status DC Sodium Phosphate 30 mmol/Sodium Chloride 260 ml @ 43.333 mls/ hr ONCE ONCE IV ; Start 06/30/17 at 12:00; Stop 06/30/17 at 17:59; Status DC Magnesium Sulfate/ Dextrose 100 ml @ 100 mls/hr Q1H IV Last administered on at 11:45; Start 06/30/17 at 10:45; Stop 06/30/17 at 12:44; Status DC Piperacillin Sod/ Tazobactam Sod 100 ml @ 200 mls/hr Q6H IV Last administered on 07/07/17at 09:59; Start 06/30/17 at 11:00; Stop 07/07/17 at 11:00; Status DC Albuterol/ Ipratropium (Duoneb Neb) 1 ampule Q6HR WHILE AWAKE NEB NEB Last administered on 07/05/17at 13:13; Start 07/01/17 at 20:00; Stop 07/05/17 at 14:07; Status DC Potassium Chloride (KCl Powder) 20 meq ONCE ONCE PO ; Start 07/02/17 at 22:15; Stop 07/02/17 at 22:16; Status DC Famotidine (Pepcid) 20 mg BID PO Last administered on 07/09/17at 09:59; Start 07/03/17 at 21:00 Folic Acid (Folate) 1 mg DAILY PO Last administered on 07/09/17at 09:59; Start at 09:15 Albuterol/ Ipratropium (Duoneb Neb) 1 ampule Q6HR WHILE AWAKE NEB NEB Last administered on 07/06/17at 13:06; Start 07/05/17 at 14:00; Stop 07/06/17 at 13:27; Status DC Albuterol/ Ipratropium (Duoneb Neb) 1 ampule Q6HR ALT NEB NEB ; Start 07/06/17 at 19:00; Stop 07/06/17 at 19:00; Status DC Acetaminophen (Tylenol 650 Mg/ 20 ml Liq) 650 mg Q6H PRN PO fever Last administered on 07/08/17at 15:09; Start 07/06/17 at 13:30 Albuterol/ Ipratropium (Duoneb Neb) 1 ampule Q6HR NEB NEB Last administered on 07/09/17at 07:55; Start 07/06/17 at 22:00 (Andre Nixon MD) Medical Decision Making MDM Remarks 77 y/o female with large hemorrhagic stroke, she had evidence of hydrocephalus, she underwent placement of ventriculostomy drain 06/15/17 due to worsening mental status with improvement of mental status pt did not tolerate clamping of ventriculostomy drain, ventriculostomy drain replaced 06/27/17, BRAIN PICKER shunt held due to new right side stroke (Bell Mooney) Plan Plan Remarks continue vent weaning per critical care, okay for tracheostomy if needed cont ventriculostomy draining neuro checks Dr. Nixon dw today (Bell Mooney) Attending Statement Neuro. Continue draining CSF and monitoring ICP Pulmonary. Continue mechanical ventilation and aggressive pulmonary toilette, nasotracheal suction, and breathing treatments with nebulizers. Daily PT and OT Renal. Continue to monitor closely urine output, BUN and creatinine Endocrine. Continue to Monitor serial Acu checks and SSI as needed in detail ID continue to monitor for signs of infection Continue Protonix for stress ulcer prophylaxis Continue Nickolas hose and SCD's for DVT prophylaxis Further recommendations will be provided depending on the patient's clinical evaluation and follow up studies. The exam, history, and the medical decision-making described in the above note were completed with the assistance of the mid-level provider. I reviewed and agree with the findings presented. I attest that I had a [id number] encounter with the patient on the same day, and personally performed and documented my assessment and findings in the medical record (Andre Nixon MD) Bell Mooney Jul 06, 2017 13:38 Andre Nixon MD Jul 09, 2017 13:27
[2017-07-06] MEDS ORDERED: RESP: ALBUTEROL 2.5 MG/IPRATROPIUM 0.5 MG NEB (SCH) NEB (19:00)
[2017-07-06] MEDS: PRAVASTATIN SOD 40 MG TAB PO SCH (20:35)
[2017-07-07] VITALS (18 sets, daily range): BP systolic 125–145; BP diastolic 66–87; PULSE 56–66; RESP 15–16; TEMP 98.6–98.8; O2SAT 100
[2017-07-07] MEDS: CHLORHEXIDINE GLUCONATE 2 % 1 PACK (2 CLOTHS) TOP SCH (03:21)
--- NOTE | 2017-07-07 04:14 | RADRPT ---
EXAM DATE/TIME: 07/07/2017 03:14 [facility] COMPARISON: CHEST SINGLE AP, July 02, 2017, 4:23. INDICATIONS : Congestive heart failure. MEDICAL HISTORY : Hypertension. CVA SURGICAL HISTORY : None. ENCOUNTER: Subsequent ACUITY: 3 weeks PAIN SCORE: Non-responsive. LOCATION: Bilateral chest FINDINGS: Single AP view of the chest. Endotracheal tube and nasogastric tube remain in place. Mild mid to lowe r left lung opacity unchanged. Minimal subsegmental atelectasis right lung base is new. No evidence o f pleural effusion or pneumothorax. Cardiomediastinal silhouette unchanged. CONCLUSION: Mild subsegmental atelectasis at the right lung base now seen. No other significant change. Mild patc hy opacity in the left lung is unchanged. Mio Saldivar MD on July 07, 2017 at 4:11 Board Certified Radiologist. This report was verified electronically.
[2017-07-07] MEDS: RESP: ALBUTEROL 2.5 MG/IPRATROPIUM 0.5 MG NEB (SCH) NEB ×3 (04:52→22:00)
[2017-07-07] MEDS: PIPERACIL-TAZO 4.5 GM PREMIX 100 ML IV SCH ×2 (05:02→09:59)
[2017-07-07 05:03] LABS: HEMATOCRIT 24.9 % (35.0-46.0); HEMOGLOBIN 8.6 GM/DL (11.6-15.3); MEAN CELL VOLUME 90.1 FL (80.0-100.0); MEAN CORPUSCULAR HEMOGLOBIN 31.1 PG (27.0-34.0); MEAN CORPUSCULAR HGB CONC 34.6 % (32.0-36.0); MEAN PLATELET VOLUME 8.6 FL (7.0-11.0); PLATELET COUNT 224 TH/MM3 (150-450); RED BLOOD COUNT 2.77 MIL/MM3 (4.00-5.30)
[2017-07-07 05:15] LABS: ALBUMIN 1.9 GM/DL (3.4-5.0); BICARBONATE 27.2 MEQ/L (21.0-32.0); CREATININE 0.99 MG/DL (0.50-1.00)
[2017-07-07 05:16] LABS: DIRECT BILIRUBIN ADULT 0.3 MG/DL (0.0-0.2)
[2017-07-07 05:18] LABS: INDIRECT BILIRUBIN 0.2 MG/DL (0.0-0.8); PHOSPHORUS 2.5 MG/DL (2.5-4.9); TOTAL BILIRUBIN ADULT 0.5 MG/DL (0.2-1.0); TOTAL PROTEIN 6.9 GM/DL (6.4-8.2)
[2017-07-07] MEDS: METOCLOPRAMIDE HCL 10 MG/2 ML VIAL IV PUSH SCH ×3 (05:27→21:06)
[2017-07-07] MEDS: ARTIFICIAL TEARS OPTH SOLN 15 ML BTL EACH EYE SCH ×3 (05:27→21:06)
[2017-07-07] MEDS: CHLORHEXIDINE 0.12% (ORAL KIT) 15 ML CUP MT SCH ×2 (08:00→21:07)
[2017-07-07] MEDS: POLYETHYLENE GLYCOL 17 GM PKG PO SCH ×2 (09:00→21:04)
[2017-07-07] MEDS: DOCUSATE SODIUM 100 MG/10 ML UDC PO SCH ×2 (09:00→21:05)
[2017-07-07] MEDS: SENNOSIDES SYRUP 8.8 MG/5 ML CUP PO SCH ×2 (09:00→21:04)
[2017-07-07] MEDS: METOPROLOL TARTRATE 25 MG TAB PO SCH ×2 (09:01→21:05)
[2017-07-07] MEDS: FOLIC ACID 1 MG TAB PO SCH (09:01)
[2017-07-07] MEDS: levETIRAcetam 500 MG TAB PO SCH ×2 (09:01→21:05)
[2017-07-07] MEDS: FAMOTIDINE 20 MG TAB PO SCH ×2 (09:01→21:05)
--- NOTE | 2017-07-07 09:14 | HHI.NSPN ---
(Eldon Curry) History Chief Complaint: Unable to obtain due to patient's clinical condition. (Eldon Curry) Interval History 77 year old female with large hemorrhage stroke with hydrocephalus, worsening mental status, patient became severely obtunded difficult to arouse, she underwent placement of ventriculostomy drain 06/15/1706/16: ventriculostomy draining well, intubated, opening eyes and moving right side spontaneously. 06/18: ventriculostomy draining well, remains intubated, opens eyes, tracks, moves right side, stable left paresis 06/19: ventriculostomy draining well, CSF still bloody, dark red. opens eyes and moves right side spontaneously 06/20: ventriculostomy draining well, still gross bloody CSF, intubated, but opens eyes and gave thumbs up to command 06/25: Awake, ventriculostomy draining, drain raised to 15 cm of water over the weekend with stable ICPs. 06/26: EVD raised to 20 cm H20 yesterday, ICPs remains stable overnight, however appears more lethargic today, minimally opens eyes but falls back asleep. 06/27: MRI Brain this morning with new acute nonhemorrhagic left occipital infarct. 06/28: left ventriculostomy draining well, intubated and sedated. 07/02: ventriculostomy draining well, remains intubated. ICPs low. 07/03: ICPs stable overnight, intubated, no sedatives, awake, following simple commands. ventriculostomy draining well. 07/04: remains awake, alert, follows commands. still intubated. ventriculostomy draining well, ICPs controlled overnight. 07/05: continues to be intubated, mildly sedated due to vent restlessness. ventriculostomy continues to drain well, ICPs stable. 07/06: remains intubated, CPAP trials continues. no change in neuro exam. EVD draining well. 07/07: Pt sedated on fentanyl and Diprivan drips. She moves all 4 extremities spontaneously. She does not follow commands consistently. Ventriculostomy drain in place at 5 cm of H2O (Eldon Curry) System Review Comments Not able to obtain given clinical condition. (Eldon Curry) Exam Results Vital Signs Date Time Temp Pulse Resp B/P (MAP) Pulse Ox O2 Delivery O2 Flow Rate FiO2 07/07/17 08:48 100 40 07/07/17 08:00 98.6 62 16 127/87 (100) 07/06/17 19:00 Mechanical Ventilator 07/04/17 19:00 2.00 Intake and Output 07/07/17 07/07/17 07/08/17 08:00 16:00 00:00 Intake Total 625 ml Output Total 847 ml Balance -222 ml (Eldon Curry) Physical Examination General: Pt sedated and intubated in bed in NAD. Eyes: Pupils 2mm bilaterally. Sclera intact bilaterally. Resp: Clear to auscultation bilaterally. She is intubated. Pressure controlled. Rate 14. PEEP 5. FiO2 40%. Heart: Normal sinus rhythm. No murmurs. Abdomen: Soft positive bowel sounds. OG tube feeds at 50 mL/h Skin: No cyanosis or erythema. SCDs in place. Muscle: Patient moves all 4 extremities spontaneously. She does not follow commands consistently for muscle testing. Neuro:. Patient opens her eyes to voice. She moves all 4 extremities however does not follow commands consistently to get muscle testing. Pupils are equal 2 mm bilaterally. Ventriculostomy drain in place at 5 cm of H2O blood-tinged CSF and chamber. (Eldon Curry) Lab, Micro, Other Results Last Impressions Chest X-Ray 07/07/17 0600 Signed Impressions: Service Date/Time: Friday, July 07, 2017 03:14 - CONCLUSION: Mild subsegmental atelectasis at the right lung base now seen. No other significant change. Mild patchy opacity in the left lung is unchanged. Mio Saldivar MD Abdomen X-Ray 07/01/17 0600 Signed Impressions: Service Date/Time: Saturday, July 01, 2017 04:18 - CONCLUSION: 1. Nonspecific bowel gas pattern without evidence for obstruction or free air. Ivan Bahena MD Carotid Artery Ultrasound 06/27/17 0000 Signed Impressions: Service Date/Time: Tuesday, June 27, 2017 12:59 - CONCLUSION: 1. Moderate diffuse atherosclerotic plaquing at both carotid bifurcations. 2. Mild elevated velocity in the proximal right internal carotid artery. If clinically indicated , recommend CTA of the carotid arteries for further evaluation. 3. No definite high grade or hemodynamically significant stenosis is demonstrated. David Moore MD Brain MRI 06/27/17 0000 Signed Impressions: Service Date/Time: Tuesday, June 27, 2017 09:23 - CONCLUSION: 1. New development of a nonhemorrhagic acute infarct involving the left occipital lobe. 2. Otherwise, the rest of the exam is stable compared to the prior MRI. David Moore MD Head CT 06/26/17 0000 Signed Impressions: Service Date/Time: Monday, June 26, 2017 10:08 - CONCLUSION: 1. Continued evolution of right cerebral hematoma with slightly increasing surrounding edema. 2. No new hemorrhage identified. 3. Continued ventricular dilatation with no further decompression following placement of ventriculostomy. 4. No significant shift of midline structures. Rene Lomeli MD Head Magnetic Resonance Angiography 06/15/17 0000 Signed Impressions: Service Date/Time: Thursday, June 15, 2017 11:52 - CONCLUSION: MRA within normal limits. There is a parenchymal hemorrhage in the posterior right temporal lobe with intraventricular extension. Ivan Bahena MD Laboratory Tests Test 07/07/17 03:55 White Blood Count 9.0 TH/MM3 Red Blood Count 2.77 MIL/MM3 Hemoglobin 8.6 GM/DL Hematocrit 24.9 % Mean Corpuscular Volume 90.1 FL Mean Corpuscular Hemoglobin 31.1 PG Mean Corpuscular Hemoglobin Concent 34.6 % Red Cell Distribution Width 14.0 % Platelet Count 224 TH/MM3 Mean Platelet Volume 8.6 FL Blood Urea Nitrogen 22 MG/DL Creatinine 0.99 MG/DL Random Glucose 146 MG/DL Total Protein 6.9 GM/DL Albumin 1.9 GM/DL Calcium Level 8.0 MG/DL Phosphorus Level 2.5 MG/DL Magnesium Level 2.0 MG/DL Alkaline Phosphatase 117 U/L Aspartate Amino Transf (AST/SGOT) 26 U/L Alanine Aminotransferase (ALT/SGPT) 20 U/L Total Bilirubin 0.5 MG/DL Direct Bilirubin 0.3 MG/DL Sodium Level 137 MEQ/L Potassium Level 4.1 MEQ/L Chloride Level 103 MEQ/L Carbon Dioxide Level 27.2 MEQ/L Anion Gap 7 MEQ/L Estimat Glomerular Filtration Rate 54 ML/MIN Indirect Bilirubin 0.2 MG/DL Amylase Level 92 U/L Lipase 189 U/L (Eldon Curry) Medical Decision Making Impression and Plan A: 77 y/o female with large hemorrhagic stroke, she had evidence of hydrocephalus, she underwent placement of ventriculostomy drain 06/15/17 due to worsening mental status with improvement of mental status pt did not tolerate clamping of ventriculostomy drain, ventriculostomy drain replaced 06/27/17, [employer] shunt held due to new right side stroke Plan Plan Plan Remarks continue vent weaning per critical care, okay for tracheostomy if needed cont ventriculostomy draining neuro checks (Eldon Curry) Attending Statement The exam, history, and the medical decision-making described in the above note were completed with the assistance of the mid-level provider. I reviewed and agree with the findings presented. I attest that I had a [id number] encounter with the patient on the same day, and personally performed and documented my assessment and findings in the medical record. Ventriculostomy draining with ICPs normal. Opens eyes and follows commands. Unable to extubate and remains intubated and ventilated dependent. Increased ventriculostomy level at 10 cm of water. Discussed with nursing staff. (Shon Monge MD) Eldon Curry Jul 07, 2017 09:14 Shon Monge MD Jul 07, 2017 11:22
--- NOTE | 2017-07-07 15:35 | HHI.CCPN ---
Subjective Remarks/Hospital Course Severely dehydrated, elderly woman presents confused to [facility] ED with hypertensive urgency and semi-acute right hemispheric parenchymal brain hemorrhage. Arrived from [facility] on cardene gtt and aphasic. Handness not determined yet. Unable to get ROS. No anticoagulants. INR normal. 06/16: Flaccid left side. Minimal eye opening. Moves right arm and leg to stimulation. Breathes over vent. ICP control, EVD draining well. 06/17: Moving both arms, right much stronger. More alert but episodic apnea spells. 06/18: No events over the night. Patient remains intubated, off sedation. She is currently on pressure support, 01/04, doing well. Awake, following commands. Son present at bedside. T-max of 99.6. I/O 250/1545. 06/19: No events over the night. Patient did well yesterday on pressure support , but was not able to be extubated secondary to no cuff leak. She remains on Cardene currently at 9.5 mg/h. Afebrile with a T-max of 99.4. Negative fluid balance. 06/20: Patient did well over the night. T-max of 100.2. ICP of 4. Thick sputum secretions sent yesterday for culture now growing Staphylococcus. Patient is awake, off sedation following some commands. Off Cardene drip since yesterday. 06/21: Patient did well postextubation and over the night. T-max of 100 yesterday morning. Very good urine output. Patient awake following commands, denying any pain. 06/22: No events over the night. Patient doing well. She is awake and alert, denies headache, nausea, vomiting. No chest pain, no dyspnea, no palpitations. On 2 L nasal cannula. Afebrile over the last 24 hours. Diuresed well post Lasix and she is on negative fluid balance since admission. 06/23: Patient awake, feels better, denies chest pain, shortness of breath, palpitations, headache. Still has productive cough. Afebrile, urine output is adequate. 06/24: No events over the night. Patient afebrile over the last 24 hours. She remains awake, resting in bed, denies any complaints. Sons at bedside. 06/25: Resting comfortably. Drowsy, arousable. EVD at 15cm, drained 60 cc overnight. 06/26: Resting comfortably. Awake and alert. EVD in place drain 10 cc overnight however has some clear fluid draining around ventriculostomy site. Dr. Nixon planning [employer] shunt for tomorrow. 06/27: Afebrile. Less arousable today. Eyes are closed. Subjective left-sided weakness. EVD in place at 20 cm. 4 cc overnight. On cefazolin with clear fluid draining from ventriculostomy site. MRI brain currently pending. 06/28: Afebrile. Intubated yesterday secondary to altered mental status/ aspiration. Arousable and follows commands in the ventilator. 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 Echocardiogram pending. Possibly some right carotid stenosis on carotid ultrasound which does not correlate to this current acute left MCA CVA 06/29: Afebrile. More arousable today. Spontaneously moving left upper extremity. Opens eyes to voice. Not following commands. Tolerating tube feeds at goal. 06/30: Resting in bed in no acute distress. More arousable today. Spontaneously moving left upper extremity. Opens eyes to voice. No bowel movement 07/01: T-max 99.8. Currently 99.3. Opens eyes to voice. Squeezes bilateral hands right greater than left. Not following commands however. Tolerating spontaneous breathing trial 07/02: T-max 100.1. Currently afebrile. Did not tolerate CPAP trial today. Slightly more responsive today briefly follow commands right greater than left. Tolerating tube feeding. 07/03: Tolerating CPAP trial today. T-max 100.1. Currently 98.5. 2 bowel movements. More arousable and alert today 07/04: on PSV 10/5/40%. more awake today. follows commands. 07/05: continues to be more awake and alert, but also continues to fail CPAP trials. becomes tachypneic and distress. Subjective 07/06: Afebrile. Arousable and follows commands. Neurologically stable. Tolerating tube feeding. On PSV trial since 1050 but currently going to back up mode secondary to apnea. 07/07: Will trial SBTs daily, watch for apnea periods. Objective Vital Signs Date Time Temp Pulse Resp B/P (MAP) Pulse Ox O2 Delivery O2 Flow Rate FiO2 07/07/17 12:00 98.6 58 15 137/66 (89) 100 07/07/17 12:00 40 07/06/17 19:00 Mechanical Ventilator 07/04/17 19:00 2.00 Intake and Output 07/07/17 07/07/17 07/08/17 08:00 16:00 00:00 Intake Total 625 ml 100 ml Output Total 847 ml Balance -222 ml 100 ml Result Diagram: 07/07/17 0355 07/07/17 0355 Imaging Last Impressions Chest X-Ray 07/02/17599 Signed Impressions: Service Date/Time: Sunday, July 02, 2017 04:23 - CONCLUSION: No significant change Harsha Wen MD Abdomen X-Ray 07/01/17599 Signed Impressions: Service Date/Time: Saturday, July 01, 2017 04:18 - CONCLUSION: 1. Nonspecific bowel gas pattern without evidence for obstruction or free air. Ivan Bahena MD Carotid Artery Ultrasound 06/27/17 0000 Signed Impressions: Service Date/Time: Tuesday, June 27, 2017 12:59 - CONCLUSION: 1. Moderate diffuse atherosclerotic plaquing at both carotid bifurcations. 2. Mild elevated velocity in the proximal right internal carotid artery. If clinically indicated , recommend CTA of the carotid arteries for further evaluation. 3. No definite high grade or hemodynamically significant stenosis is demonstrated. David Moore MD Brain MRI 06/27/17 0000 Signed Impressions: Service Date/Time: Tuesday, June 27, 2017 09:23 - CONCLUSION: 1. New development of a nonhemorrhagic acute infarct involving the left occipital lobe. 2. Otherwise, the rest of the exam is stable compared to the prior MRI. David Moore MD Head CT 06/26/17 0000 Signed Impressions: Service Date/Time: Monday, June 26, 2017 10:08 - CONCLUSION: 1. Continued evolution of right cerebral hematoma with slightly increasing surrounding edema. 2. No new hemorrhage identified. 3. Continued ventricular dilatation with no further decompression following placement of ventriculostomy. 4. No significant shift of midline structures. Rene Lomeli MD Head Magnetic Resonance Angiography 06/15/17 0000 Signed Impressions: Service Date/Time: Thursday, June 15, 2017 11:52 - CONCLUSION: MRA within normal limits. There is a parenchymal hemorrhage in the posterior right temporal lobe with intraventricular extension. Ivan Bahena MD Objective Remarks General - 77-year-old female, orotracheally intubated HEENT - pupils are equal and reactive about 3 mm bilaterally, conjunctivae are anicteric, neck is supple. Left frontal Russell hole with placement of a ventriculostomy catheter -5 cm H2O, moist mucous membranes. Ventriculostomy 190 cc CV -RRR. sinus, no JVD. Chest - equal chest rise. psv 10/5/40%. unlabored. Abdomen - soft, nontender, not distended, no guarding. Extremities -warm, 1+ edema, + peripheral pulses, well perfused. Neuro -arousable on the ventilator and follows commands. Left gaze preference. , no facial asymmetry, squeezes fingers on both upper extremities but weak left side subjectively weaker than right strength 3 out of 5, wiggles toes to command and stimulation A/P Problem List: (1) Hemorrhagic stroke ICD Code: I61.9 - Nontraumatic intracerebral hemorrhage, unspecified Status: Acute (2) Hypertensive urgency ICD Code: I16.0 - Hypertensive urgency Status: Acute (3) Encephalopathy, metabolic ICD Code: G93.41 - Metabolic encephalopathy Status: Acute (4) CLAYTON (acute kidney injury) ICD Code: N17.9 - Acute kidney failure, unspecified Status: Acute Assessment and Plan Neuro/Psych: Right posterior temporal/occipital/parietal intra-axial hematoma Left MCA posterior temporal occipital CVA Right complex partial seizure Wernicke aphasia Acute encephalopathy Currently on fentanyl drip off. Previously 25 mg an hour for sedation while intubated CT brain 06/25 revealed a right occipital parietal intra-axial hematoma with mild surrounding edema. Right ventriculostomy placed 06/27-currently 5 cm H2O. MRI brain revealed a left MCA CVA involving the left posterior temporal occipital region On levetiracetam 500 mg twice daily for seizure. Acetaminophen 650 mg p.o. every 6 hours as needed fever/pain 1 through 10 MRI brain admission revealed right posterior temporal hemorrhage with ventricular extension MRA brain negative for aneurysm Carotid Dopplers with possible right carotid stenosis. Does not explain acute left MCA CVA. ESR, CRP and hypercoagulable workup pending Followed by Dr. Crowell neurology CV: Hypertensive emergency Dyslipidemia Currently on metoprolol 25 mg by mouth twice daily Currently on pravastatin 40 mg daily/on atorvastatin 40 mg daily at home Holding aspirin 81 mg daily in light of acute hemorrhage 06/29 echo - Normal left ventricular size. Mild concentric left ventricular hypertrophy. The left ventricular systolic function is hyperdynamic with an estimated ejection fraction in the range of 65-70%. Mitral annular calcification is present. There is trace tricuspid valve regurgitation. The estimated pulmonary arterial pressure is 43 mmHg. Resp: Acute hypoxic and hypercarbic respiratory failure secondary to aspiration Reintubated secondary to new acute CVA with aspiration PRVC ventilation. CPAP trials as tolerated Ventilator bundle Albuterol/ipratropium aerosols every 6 hours alternate nebs with albuterol aerosols every 2 hours as needed dyspnea Spontaneous breathing trials daily GI: Hypoalbuminemia Constipation Jevity 1.5 at 50 cc an hour at goal Famotidine 20 mg twice daily for GI prophylaxis Docusate sodium/senna 1 tablet twice daily for bowel regimen. Continue polyethylene glycol 17 g twice daily, : no indication for eknt catheter. Endo: Sliding scale insulin if indicated to maintain euglycemia Renal: Creatinine currently within normal limits Monitor urine output Accurate I's and O's Heme: Normocytic anemia Monitor CBC daily. Follow trend Hypercoagulable workup currently in process ID: Serratia plymithica, MSSA and Klebsiella pneumonia Completed cefazolin 2 g IV every 8 hours day #7 -> done Switch to penicillin/tazobactam day #7 -> done Pertinent cultures 06/30 -sputum -Serratia Plymithica/Klebsiella pneumonia 06/29 -blood cultures 2 -no growth 06/18 -staph aureus/Klebsiella pneumonia sputum FEN: Replace electrolytes as clinically indicated MSK: Osteoarthritis/osteoporosis Holding alendronate 70 mg weekly. Resume clinically indicated Access -Utilize peripheral IV. Central line if indicated Prophylaxis -GI -famotidine -DVT -SCD/holding pharmacological prophylaxis in light of cerebral hematoma. Initiate when okay with neurosurgery Overall impression: Stable hemodynamics. Unable to wean off ventilator yet. Ulisses Gunter MD Jul 07, 2017 15:35
[2017-07-07] MEDS: PRAVASTATIN SOD 40 MG TAB PO SCH (21:07)
[2017-07-08] VITALS (17 sets, daily range): BP systolic 145–166; BP diastolic 65–80; PULSE 63–85; RESP 14–25; TEMP 98.4–99.1; O2SAT 97–100
[2017-07-08] MEDS: RESP: ALBUTEROL 2.5 MG/IPRATROPIUM 0.5 MG NEB (SCH) NEB ×4 (03:48→20:51)
[2017-07-08] MEDS: CHLORHEXIDINE GLUCONATE 2 % 1 PACK (2 CLOTHS) TOP SCH (04:00)
[2017-07-08] MEDS: ARTIFICIAL TEARS OPTH SOLN 15 ML BTL EACH EYE SCH ×2 (05:05→22:00)
[2017-07-08] MEDS: METOCLOPRAMIDE HCL 10 MG/2 ML VIAL IV PUSH SCH ×3 (05:05→21:15)
[2017-07-08 05:44] LABS: HEMATOCRIT 24.1 % (35.0-46.0); HEMOGLOBIN 8.4 GM/DL (11.6-15.3); MEAN CELL VOLUME 89.4 FL (80.0-100.0); MEAN CORPUSCULAR HEMOGLOBIN 31.1 PG (27.0-34.0); MEAN CORPUSCULAR HGB CONC 34.7 % (32.0-36.0); MEAN PLATELET VOLUME 8.3 FL (7.0-11.0); PLATELET COUNT 213 TH/MM3 (150-450); RED BLOOD COUNT 2.69 MIL/MM3 (4.00-5.30); RED CELL DISTRIBUTION WIDTH 13.8 % (11.6-17.2); WHITE BLOOD COUNT 8.5 TH/MM3 (4.0-11.0)
[2017-07-08 06:10] LABS: BICARBONATE 24.7 MEQ/L (21.0-32.0); CALCIUM 8.1 MG/DL (8.5-10.1); CREATININE 0.84 MG/DL (0.50-1.00)
[2017-07-08] MEDS: CHLORHEXIDINE 0.12% (ORAL KIT) 15 ML CUP MT SCH ×2 (08:00→20:00)
[2017-07-08] MEDS: POLYETHYLENE GLYCOL 17 GM PKG PO SCH ×2 (09:00→21:00)
[2017-07-08] MEDS: SENNOSIDES SYRUP 8.8 MG/5 ML CUP PO SCH ×2 (09:00→21:00)
[2017-07-08] MEDS: DOCUSATE SODIUM 100 MG/10 ML UDC PO SCH ×2 (09:00→21:14)
--- NOTE | 2017-07-08 09:05 | HHI.NSPN ---
(Eldon Curry) History Chief Complaint: Unable to obtain due to patient's clinical condition. (Eldon Curry) Interval History 77 year old female with large hemorrhage stroke with hydrocephalus, worsening mental status, patient became severely obtunded difficult to arouse, she underwent placement of ventriculostomy drain 06/15/1706/16: ventriculostomy draining well, intubated, opening eyes and moving right side spontaneously. 06/18: ventriculostomy draining well, remains intubated, opens eyes, tracks, moves right side, stable left paresis 06/19: ventriculostomy draining well, CSF still bloody, dark red. opens eyes and moves right side spontaneously 06/20: ventriculostomy draining well, still gross bloody CSF, intubated, but opens eyes and gave thumbs up to command 06/25: Awake, ventriculostomy draining, drain raised to 15 cm of water over the weekend with stable ICPs. 06/26: EVD raised to 20 cm H20 yesterday, ICPs remains stable overnight, however appears more lethargic today, minimally opens eyes but falls back asleep. 06/27: MRI Brain this morning with new acute nonhemorrhagic left occipital infarct. 06/28: left ventriculostomy draining well, intubated and sedated. 07/02: ventriculostomy draining well, remains intubated. ICPs low. 07/03: ICPs stable overnight, intubated, no sedatives, awake, following simple commands. ventriculostomy draining well. 07/04: remains awake, alert, follows commands. still intubated. ventriculostomy draining well, ICPs controlled overnight. 07/05: continues to be intubated, mildly sedated due to vent restlessness. ventriculostomy continues to drain well, ICPs stable. 07/06: remains intubated, CPAP trials continues. no change in neuro exam. EVD draining well. 07/07: Pt sedated on fentanyl and Diprivan drips. She moves all 4 extremities spontaneously. She does not follow commands consistently. Ventriculostomy drain in place at 5 cm of H2O 07/08: Pt awake. She follows commands intermittently. Ventriculostomy drain at 10cm H20. ICPs controlled. (Eldon Curry) System Review Comments Not able to obtain given clinical condition. (Eldon Curry) Exam Results Vital Signs Date Time Temp Pulse Resp B/P (MAP) Pulse Ox O2 Delivery O2 Flow Rate FiO2 07/08/17 07:20 40 07/08/17 07:20 100 07/08/17 06:00 63 07/08/17 04:00 98.4 15 158/73 (101) 07/07/17 19:00 Mechanical Ventilator 07/04/17 19:00 2.00 Intake and Output 07/08/17 07/08/17 07/08/17 07:59 15:59 23:59 Intake Total 670 ml Output Total 875 ml Balance -205 ml (Eldon Curry) Physical Examination General: Pt sedated and intubated in bed in NAD. Eyes: Pupils 3mm bilaterally. Sclera intact bilaterally. Resp: Clear to auscultation bilaterally. She is intubated. CPAP. Heart: Normal sinus rhythm. No murmurs. Abdomen: Soft positive bowel sounds. OG tube feeds at 50 mL/h Skin: No cyanosis or erythema. SCDs in place. Muscle: Patient moves all 4 extremities spontaneously. She does not follow commands consistently for muscle testing. Neuro:. Patient opens her eyes to voice. She is on a low dose fentanyl drip. She moves all 4 extremities. She follows commands intermittently. Pupils are equal 3 mm bilaterally. Ventriculostomy drain in place at 10 cm of H2O blood- tinged CSF in the chamber, ICP 10. (Eldon Curry) Lab, Micro, Other Results Last Impressions Chest X-Ray 07/07/17 0600 Signed Impressions: Service Date/Time: Friday, July 07, 2017 03:14 - CONCLUSION: Mild subsegmental atelectasis at the right lung base now seen. No other significant change. Mild patchy opacity in the left lung is unchanged. Mio Saldivar MD Abdomen X-Ray 07/01/17 0600 Signed Impressions: Service Date/Time: Saturday, July 01, 2017 04:18 - CONCLUSION: 1. Nonspecific bowel gas pattern without evidence for obstruction or free air. Ivan Bahena MD Carotid Artery Ultrasound 06/27/17 0000 Signed Impressions: Service Date/Time: Tuesday, June 27, 2017 12:59 - CONCLUSION: 1. Moderate diffuse atherosclerotic plaquing at both carotid bifurcations. 2. Mild elevated velocity in the proximal right internal carotid artery. If clinically indicated , recommend CTA of the carotid arteries for further evaluation. 3. No definite high grade or hemodynamically significant stenosis is demonstrated. David Moore MD Brain MRI 06/27/17 0000 Signed Impressions: Service Date/Time: Tuesday, June 27, 2017 09:23 - CONCLUSION: 1. New development of a nonhemorrhagic acute infarct involving the left occipital lobe. 2. Otherwise, the rest of the exam is stable compared to the prior MRI. David Moore MD Head CT 06/26/17 0000 Signed Impressions: Service Date/Time: Monday, June 26, 2017 10:08 - CONCLUSION: 1. Continued evolution of right cerebral hematoma with slightly increasing surrounding edema. 2. No new hemorrhage identified. 3. Continued ventricular dilatation with no further decompression following placement of ventriculostomy. 4. No significant shift of midline structures. Rene Lomeli MD Head Magnetic Resonance Angiography 06/15/17 0000 Signed Impressions: Service Date/Time: Thursday, June 15, 2017 11:52 - CONCLUSION: MRA within normal limits. There is a parenchymal hemorrhage in the posterior right temporal lobe with intraventricular extension. Ivan Bahena MD Laboratory Tests Test 07/08/17 04:57 White Blood Count 8.5 TH/MM3 Red Blood Count 2.69 MIL/MM3 Hemoglobin 8.4 GM/DL Hematocrit 24.1 % Mean Corpuscular Volume 89.4 FL Mean Corpuscular Hemoglobin 31.1 PG Mean Corpuscular Hemoglobin Concent 34.7 % Red Cell Distribution Width 13.8 % Platelet Count 213 TH/MM3 Mean Platelet Volume 8.3 FL Blood Urea Nitrogen 20 MG/DL Creatinine 0.84 MG/DL Random Glucose 151 MG/DL Calcium Level 8.1 MG/DL Sodium Level 138 MEQ/L Potassium Level 4.4 MEQ/L Chloride Level 105 MEQ/L Carbon Dioxide Level 24.7 MEQ/L Anion Gap 8 MEQ/L Estimat Glomerular Filtration Rate 65 ML/MIN (Eldon Curry) Medical Decision Making Impression and Plan A: 77 y/o female with large hemorrhagic stroke, she had evidence of hydrocephalus, she underwent placement of ventriculostomy drain 06/15/17 due to worsening mental status with improvement of mental status pt did not tolerate clamping of ventriculostomy drain, ventriculostomy drain replaced 06/27/17, 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 Continue with neuro checks Updated family at bedside yesterday and answered all their questions. (Eldon Curry) Attending Statement The exam, history, and the medical decision-making described in the above note were completed with the assistance of the mid-level provider. I reviewed and agree with the findings presented. I attest that I had a [id number] encounter with the patient on the same day, and personally performed and documented my assessment and findings in the medical record. Much more alert with normal ICPs and tolerating CPAP trials. Continue with ventriculostomy challenge possible extubation if remains alert and able to protect her airway. (Shon Monge MD) Eldon Curry Jul 08, 2017 09:05 Shon Monge MD Jul 08, 2017 14:07
[2017-07-08] MEDS: levETIRAcetam 500 MG TAB PO SCH ×2 (10:31→21:15)
[2017-07-08] MEDS: FAMOTIDINE 20 MG TAB PO SCH ×2 (10:31→21:14)
[2017-07-08] MEDS: METOPROLOL TARTRATE 25 MG TAB PO SCH ×2 (10:31→21:15)
[2017-07-08] MEDS: FOLIC ACID 1 MG TAB PO SCH (10:32)
[2017-07-08] MEDS: LABETALOL HCL 100 MG/20 ML VIAL IV PUSH PRN (15:08)
--- NOTE | 2017-07-08 15:33 | HHI.CCPN ---
Subjective Remarks/Hospital Course Severely dehydrated, elderly woman presents confused to [facility] ED with hypertensive urgency and semi-acute right hemispheric parenchymal brain hemorrhage. Arrived from [facility] on cardene gtt and aphasic. Handness not determined yet. Unable to get ROS. No anticoagulants. INR normal. 06/16: Flaccid left side. Minimal eye opening. Moves right arm and leg to stimulation. Breathes over vent. ICP control, EVD draining well. 06/17: Moving both arms, right much stronger. More alert but episodic apnea spells. 06/18: No events over the night. Patient remains intubated, off sedation. She is currently on pressure support, 01/04, doing well. Awake, following commands. Son present at bedside. T-max of 99.6. I/O 250/1545. 06/19: No events over the night. Patient did well yesterday on pressure support , but was not able to be extubated secondary to no cuff leak. She remains on Cardene currently at 9.5 mg/h. Afebrile with a T-max of 99.4. Negative fluid balance. 06/20: Patient did well over the night. T-max of 100.2. ICP of 4. Thick sputum secretions sent yesterday for culture now growing Staphylococcus. Patient is awake, off sedation following some commands. Off Cardene drip since yesterday. 06/21: Patient did well postextubation and over the night. T-max of 100 yesterday morning. Very good urine output. Patient awake following commands, denying any pain. 06/22: No events over the night. Patient doing well. She is awake and alert, denies headache, nausea, vomiting. No chest pain, no dyspnea, no palpitations. On 2 L nasal cannula. Afebrile over the last 24 hours. Diuresed well post Lasix and she is on negative fluid balance since admission. 06/23: Patient awake, feels better, denies chest pain, shortness of breath, palpitations, headache. Still has productive cough. Afebrile, urine output is adequate. 06/24: No events over the night. Patient afebrile over the last 24 hours. She remains awake, resting in bed, denies any complaints. Sons at bedside. 06/25: Resting comfortably. Drowsy, arousable. EVD at 15cm, drained 60 cc overnight. 06/26: Resting comfortably. Awake and alert. EVD in place drain 10 cc overnight however has some clear fluid draining around ventriculostomy site. Dr. 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 06/27: Afebrile. Less arousable today. Eyes are closed. Subjective left-sided weakness. EVD in place at 20 cm. 4 cc overnight. On cefazolin with clear fluid draining from ventriculostomy site. MRI brain currently pending. 06/28: Afebrile. Intubated yesterday secondary to altered mental status/ aspiration. Arousable and follows commands in the ventilator. 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 Echocardiogram pending. Possibly some right carotid stenosis on carotid ultrasound which does not correlate to this current acute left MCA CVA 06/29: Afebrile. More arousable today. Spontaneously moving left upper extremity. Opens eyes to voice. Not following commands. Tolerating tube feeds at goal. 06/30: Resting in bed in no acute distress. More arousable today. Spontaneously moving left upper extremity. Opens eyes to voice. No bowel movement 07/01: T-max 99.8. Currently 99.3. Opens eyes to voice. Squeezes bilateral hands right greater than left. Not following commands however. Tolerating spontaneous breathing trial 07/02: T-max 100.1. Currently afebrile. Did not tolerate CPAP trial today. Slightly more responsive today briefly follow commands right greater than left. Tolerating tube feeding. 07/03: Tolerating CPAP trial today. T-max 100.1. Currently 98.5. 2 bowel movements. More arousable and alert today 07/04: on PSV /5/40%. more awake today. follows commands. 07/05: continues to be more awake and alert, but also continues to fail CPAP trials. becomes tachypneic and distress. Subjective 07/06: Afebrile. Arousable and follows commands. Neurologically stable. Tolerating tube feeding. On PSV trial since 1050 but currently going to back up mode secondary to apnea. 07/07: Will trial SBTs daily, watch for apnea periods. 07/08: Fentanyl off and she is a little more active today. She may be blind. Unable to extubate today. Objective Vital Signs Date Time Temp Pulse Resp B/P (MAP) Pulse Ox O2 Delivery O2 Flow Rate FiO2 07/08/17 15:07 100 40 07/08/17 14:00 78 07/08/17 12:00 98.4 22 166/80 (108) 07/07/17 19:00 Mechanical Ventilator 07/04/17 19:00 2.00 Intake and Output 07/08/17 07/08/17 07/09/17 08:00 16:00 00:00 Intake Total 670 ml Output Total 875 ml Balance -205 ml Result Diagram: 07/08/1745607/08/17456 Imaging Last Impressions Chest X-Ray 07/02/17599 Signed Impressions: Service Date/Time: Sunday, July 02, 2017 04:23 - CONCLUSION: No significant change Harsha Wen MD Abdomen X-Ray 07/01/17599 Signed Impressions: Service Date/Time: Saturday, July 01, 2017 04:18 - CONCLUSION: 1. Nonspecific bowel gas pattern without evidence for obstruction or free air. Ivan Bahena MD Carotid Artery Ultrasound 06/27/17 0000 Signed Impressions: Service Date/Time: Tuesday, June 27, 2017 12:59 - CONCLUSION: 1. Moderate diffuse atherosclerotic plaquing at both carotid bifurcations. 2. Mild elevated velocity in the proximal right internal carotid artery. If clinically indicated , recommend CTA of the carotid arteries for further evaluation. 3. No definite high grade or hemodynamically significant stenosis is demonstrated. David Moore MD Brain MRI 06/27/17 0000 Signed Impressions: Service Date/Time: Tuesday, June 27, 2017 09:23 - CONCLUSION: 1. New development of a nonhemorrhagic acute infarct involving the left occipital lobe. 2. Otherwise, the rest of the exam is stable compared to the prior MRI. David Moore MD Head CT 06/26/17 0000 Signed Impressions: Service Date/Time: Monday, June 26, 2017 10:08 - CONCLUSION: 1. Continued evolution of right cerebral hematoma with slightly increasing surrounding edema. 2. No new hemorrhage identified. 3. Continued ventricular dilatation with no further decompression following placement of ventriculostomy. 4. No significant shift of midline structures. Rene Lomeli MD Head Magnetic Resonance Angiography 06/15/17 0000 Signed Impressions: Service Date/Time: Thursday, June 15, 2017 11:52 - CONCLUSION: MRA within normal limits. There is a parenchymal hemorrhage in the posterior right temporal lobe with intraventricular extension. Ivan Bahena MD Objective Remarks General - 77-year-old female, orotracheally intubated HEENT - pupils are equal, about 3 mm bilaterally, conjunctivae are anicteric, neck is supple. Left frontal Russell hole with placement of a ventriculostomy catheter -5 cm H2O, moist mucous membranes. CV -RRR. sinus, no JVD. Chest - Equal chest rise. unlabored, clear. Abdomen - soft, nontender, not distended, no guarding. bs active. Extremities -warm, 1+ edema, + peripheral pulses, well perfused. Neuro Not arousable on the ventilator. Left gaze preference., no facial asymmetry, squeezes fingers on both upper extremities but weak left side subjectively weaker than right strength 3 out of 5, wiggles toes to command and stimulation A/P Problem List: (1) Hemorrhagic stroke ICD Code: I61.9 - Nontraumatic intracerebral hemorrhage, unspecified Status: Acute (2) Hypertensive urgency ICD Code: I16.0 - Hypertensive urgency Status: Acute (3) Encephalopathy, metabolic ICD Code: G93.41 - Metabolic encephalopathy Status: Acute (4) CLAYTON (acute kidney injury) ICD Code: N17.9 - Acute kidney failure, unspecified Status: Acute Assessment and Plan Neuro/Psych: Right posterior temporal/occipital/parietal intra-axial hematoma Left MCA posterior temporal occipital CVA Right complex partial seizure Wernicke aphasia Acute encephalopathy Currently on fentanyl drip off. Previously 25 mg an hour for sedation while intubated CT brain 06/25 revealed a right occipital parietal intra-axial hematoma with mild surrounding edema. Right ventriculostomy placed 06/27-currently 5 cm H2O. MRI brain revealed a left MCA CVA involving the left posterior temporal occipital region On levetiracetam 500 mg twice daily for seizure. Acetaminophen 650 mg p.o. every 6 hours as needed fever/pain 1 through 10 MRI brain admission revealed right posterior temporal hemorrhage with ventricular extension MRA brain negative for aneurysm Carotid Dopplers with possible right carotid stenosis. Does not explain acute left MCA CVA. ESR, CRP and hypercoagulable workup pending Followed by Dr. Crowell neurology CV: Hypertensive emergency Dyslipidemia Currently on metoprolol 25 mg by mouth twice daily Currently on pravastatin 40 mg daily/on atorvastatin 40 mg daily at home Holding aspirin 81 mg daily in light of acute hemorrhage 06/29 echo - Normal left ventricular size. Mild concentric left ventricular hypertrophy. The left ventricular systolic function is hyperdynamic with an estimated ejection fraction in the range of 65-70%. Mitral annular calcification is present. There is trace tricuspid valve regurgitation. The estimated pulmonary arterial pressure is 43 mmHg. Resp: Acute hypoxic and hypercarbic respiratory failure secondary to aspiration Reintubated secondary to new acute CVA with aspiration PRVC ventilation. CPAP trials as tolerated Ventilator bundle Albuterol/ipratropium aerosols every 6 hours alternate nebs with albuterol aerosols every 2 hours as needed dyspnea Spontaneous breathing trials daily GI: Hypoalbuminemia Constipation Jevity 1.5 at 50 cc an hour at goal Famotidine 20 mg twice daily for GI prophylaxis Docusate sodium/senna 1 tablet twice daily for bowel regimen. Continue polyethylene glycol 17 g twice daily, : no indication for kent catheter. Endo: Sliding scale insulin if indicated to maintain euglycemia Renal: Creatinine currently within normal limits Monitor urine output Accurate I's and O's Heme: Normocytic anemia Monitor CBC daily. Follow trend Hypercoagulable workup currently in process ID: Serratia plymithica, MSSA and Klebsiella pneumonia Completed cefazolin 2 g IV every 8 hours day #7 -> done Switch to penicillin/tazobactam day #7 -> done Pertinent cultures 06/30 -sputum -Serratia Plymithica/Klebsiella pneumonia 06/29 -blood cultures 2 -no growth 06/18 -staph aureus/Klebsiella pneumonia sputum FEN: Replace electrolytes as clinically indicated MSK: Osteoarthritis/osteoporosis Holding alendronate 70 mg weekly. Resume clinically indicated Access -Utilize peripheral IV. Central line if indicated Prophylaxis -GI -famotidine -DVT -SCD/holding pharmacological prophylaxis in light of cerebral hematoma. Initiate when okay with neurosurgery Overall impression: Stable hemodynamics. Unable to wean off ventilator yet. No reaction to visual threat, concern for blindness. Ulisses Gunter MD Jul 08, 2017 15:33
[2017-07-08] MEDS: PRAVASTATIN SOD 40 MG TAB PO SCH (21:15)
[2017-07-09] VITALS (20 sets, daily range): BP systolic 135–170; BP diastolic 62–79; PULSE 70–88; RESP 16–39; TEMP 98.7–99.9; O2SAT 97–100
[2017-07-09] MEDS: RESP: ALBUTEROL 2.5 MG/IPRATROPIUM 0.5 MG NEB (SCH) NEB ×4 (04:29→20:25)
[2017-07-09] MEDS: METOCLOPRAMIDE HCL 10 MG/2 ML VIAL IV PUSH SCH ×3 (06:00→21:18)
[2017-07-09] MEDS: ARTIFICIAL TEARS OPTH SOLN 15 ML BTL EACH EYE SCH ×4 (06:00→21:17)
[2017-07-09 06:18] LABS: WHITE BLOOD COUNT 13.1 TH/MM3 (4.0-11.0)
[2017-07-09 06:19] LABS: HEMATOCRIT 23.9 % (35.0-46.0); HEMOGLOBIN 8.1 GM/DL (11.6-15.3); MEAN CELL VOLUME 89.1 FL (80.0-100.0); MEAN CORPUSCULAR HEMOGLOBIN 30.3 PG (27.0-34.0); MEAN PLATELET VOLUME 8.6 FL (7.0-11.0); PLATELET COUNT 238 TH/MM3 (150-450); RED BLOOD COUNT 2.68 MIL/MM3 (4.00-5.30); RED CELL DISTRIBUTION WIDTH 14.2 % (11.6-17.2)
[2017-07-09 06:42] LABS: BICARBONATE 24.6 MEQ/L (21.0-32.0); CALCIUM 8.3 MG/DL (8.5-10.1); CREATININE 0.79 MG/DL (0.50-1.00)
--- NOTE | 2017-07-09 09:35 | HHI.NSPN ---
(Bell Mooney) Note Status Status: Progress Note (Bell Mooney) Status: Progress Note (Andre Nixon MD) Interval History Interval History 77 year old female with large hemorrhage stroke with hydrocephalus, worsening mental status, patient became severely obtunded difficult to arouse, she underwent placement of ventriculostomy drain 06/15/1706/16: ventriculostomy draining well, intubated, opening eyes and moving right side spontaneously. 06/18: ventriculostomy draining well, remains intubated, opens eyes, tracks, moves right side, stable left paresis 06/19: ventriculostomy draining well, CSF still bloody, dark red. opens eyes and moves right side spontaneously 06/20: ventriculostomy draining well, still gross bloody CSF, intubated, but opens eyes and gave thumbs up to command 06/25: Awake, ventriculostomy draining, drain raised to 15 cm of water over the weekend with stable ICPs. 06/26: EVD raised to 20 cm H20 yesterday, ICPs remains stable overnight, however appears more lethargic today, minimally opens eyes but falls back asleep. 06/27: MRI Brain this morning with new acute nonhemorrhagic left occipital infarct. 06/28: left ventriculostomy draining well, intubated and sedated. 07/02: ventriculostomy draining well, remains intubated. ICPs low. 07/03: ICPs stable overnight, intubated, no sedatives, awake, following simple commands. ventriculostomy draining well. 07/04: remains awake, alert, follows commands. still intubated. ventriculostomy draining well, ICPs controlled overnight. 07/05: continues to be intubated, mildly sedated due to vent restlessness. ventriculostomy continues to drain well, ICPs stable. 07/06: remains intubated, CPAP trials continues. no change in neuro exam. EVD draining well. 07/09: ventriculostomy drain increased to 15 cm H20, awake, ICPs stable. (Hill,Bell A. PA) Interval History 77 year old female with large hemorrhage stroke with hydrocephalus, worsening mental status, patient became severely obtunded difficult to arouse, she underwent placement of ventriculostomy drain 06/15/1706/16: ventriculostomy draining well, intubated, opening eyes and moving right side spontaneously. 06/18: ventriculostomy draining well, remains intubated, opens eyes, tracks, moves right side, stable left paresis 06/19: ventriculostomy draining well, CSF still bloody, dark red. opens eyes and moves right side spontaneously 06/20: ventriculostomy draining well, still gross bloody CSF, intubated, but opens eyes and gave thumbs up to command 06/25: Awake, ventriculostomy draining, drain raised to 15 cm of water over the weekend with stable ICPs. 06/26: EVD raised to 20 cm H20 yesterday, ICPs remains stable overnight, however appears more lethargic today, minimally opens eyes but falls back asleep. 06/27: MRI Brain this morning with new acute nonhemorrhagic left occipital infarct. 06/28: left ventriculostomy draining well, intubated and sedated. 07/02: ventriculostomy draining well, remains intubated. ICPs low. 07/03: ICPs stable overnight, intubated, no sedatives, awake, following simple commands. ventriculostomy draining well. 07/04: remains awake, alert, follows commands. still intubated. ventriculostomy draining well, ICPs controlled overnight. 07/05: continues to be intubated, mildly sedated due to vent restlessness. ventriculostomy continues to drain well, ICPs stable. 07/06: remains intubated, CPAP trials continues. no change in neuro exam. EVD draining well. 07/09: ventriculostomy drain increased to 15 cm H20, awake, ICPs stable. (Andre Nixon MD) Labs, Micro, & Vital Signs Results Date Time Temp Pulse Resp B/P (MAP) Pulse Ox O2 Delivery O2 Flow Rate FiO2 07/09/17 07:50 40 07/09/17 07:50 98 40 07/09/17 06:00 70 07/09/17 04:29 99 40 07/09/17 04:00 40 07/09/17 04:00 99.7 79 19 160/74 (102) 100 07/09/17 04:00 70 07/09/17 02:00 70 07/09/17 00:20 100 40 07/09/17 00:00 70 07/09/17 00:00 98.7 70 16 135/64 (87) 99 07/09/17 00:00 40 07/08/17 22:00 80 07/08/17 21:00 40 07/08/17 20:47 100 40 07/08/17 20:00 99.1 85 25 151/69 (96) 100 07/08/17 20:00 40 07/08/17 20:00 85 07/08/17 19:00 100 Mechanical Ventilator 40 07/08/17 18:00 72 07/08/17 16:00 40 07/08/17 16:00 72 07/08/17 16:00 98.4 71 16 148/65 (92) 100 07/08/17 15:07 100 40 07/08/17 14:00 78 07/08/17 12:00 40 07/08/17 12:00 98.4 64 22 166/80 (108) 97 07/08/17 11:39 100 40 07/08/17 10:00 64 Constitutional Vital Signs Date Time Temp Pulse Resp B/P (MAP) Pulse Ox O2 Delivery O2 Flow Rate FiO2 07/09/17 07:50 40 07/09/17 07:50 98 40 07/09/17 06:00 70 07/09/17 04:29 99 40 07/09/17 04:00 40 07/09/17 04:00 99.7 79 19 160/74 (102) 100 07/09/17 04:00 70 07/09/17 02:00 70 07/09/17 00:20 100 40 07/09/17 00:00 70 07/09/17 00:00 98.7 70 16 135/64 (87) 99 07/09/17 00:00 40 07/08/17 22:00 80 07/08/17 21:00 40 07/08/17 20:47 100 40 07/08/17 20:00 99.1 85 25 151/69 (96) 100 07/08/17 20:00 40 07/08/17 20:00 85 07/08/17 19:00 100 Mechanical Ventilator 40 07/08/17 18:00 72 07/08/17 16:00 40 07/08/17 16:00 72 07/08/17 16:00 98.4 71 16 148/65 (92) 100 07/08/17 15:07 100 40 07/08/17 14:00 78 07/08/17 12:00 40 07/08/17 12:00 98.4 64 22 166/80 (108) 97 07/08/17 11:39 100 40 07/08/17 10:00 64 (Bell Mooney) Review of Systems ROS Limitations: Intubated (Bell Mooney) Physical Exam Ms. Patrick is intubated. Awake HEENT: Left ventriculostomy at 15 cm H20 draining blood tinged CSF. ICPs=3 clamped. Site without signs of infection. Nonicteric sclera Cranial Nerves: Pupils equal, round reactive. Gross eoms intact, tracking. Cervical Spine: soft, supple Motor: moves extremities spontaneously Sensory: withdraws to pain stimuli Heart: regular rate rhythm Lungs: clear Skin. warm and dry (Bell Mooney) Ms. Patrick is intubated. Awake, alert HEENT: Left ventriculostomy at 15 cm H20 draining blood tinged CSF. ICPs=3 clamped. Site without signs of infection. Nonicteric sclera Cranial Nerves: Pupils equal, round reactive. Gross eoms intact, tracking. Cervical Spine: soft, supple Motor: moves extremities spontaneously Sensory: withdraws to pain stimuli Heart: regular rate rhythm Lungs: clear Skin. warm and dry (Andre Nixon MD) Medications Current Medications Current Medications Medications (Trade) Dose Ordered Sig/Jose Guadalupe Route PRN Reason Start Time Stop Time Status Last Admin Dose Admin Sodium Chloride (NS Flush) 2 ml UNSCH PRN IV FLUSH FLUSH AFTER USING IV ACCESS 06/15/17 05:15 07/02/17 10:18 Ondansetron HCl (Zofran Inj) 4 mg Q6H PRN IV PUSH NAUSEA OR VOMITING 06/15/17 06:30 Miscellaneous Information 1 Q361D XX 06/15/17 06:30 06/15/17 06:30 Chlorhexidine Gluconate (Chlorhexidine 2% Cloth) 3 pack Taper DAILY@04 TOP 06/16/17 04:00 06/12/18 03:59 06/20/17 04:00 Chlorhexidine Gluconate (Chlorhexidine 2% Cloth) 3 pack UNSCH PRN TOP HYGIENIC CARE 06/15/17 06:30 Magnesium Hydroxide (Milk Of Magnesia Liq) 30 ml Q12H PRN PO Mild constipation 06/15/17 06:30 06/22/17 20:58 Sennosides (Senokot) 17.2 mg Q12H PRN PO Moderate constipation 06/15/17 06:30 Bisacodyl (Dulcolax Supp) 10 mg DAILY PRN RECTAL SEVERE CONSITIPATION 06/15/17 06:30 Lactulose (Lactulose Liq) 30 ml DAILY PRN PO SEVERE CONSITIPATION 06/15/17 06:30 06/22/17 20:58 Chlorhexidine Gluconate (Peridex 0.12% Liq) 15 ml BID@08,20 MT 06/15/17 20:00 07/08/17 20:00 Levetriacetam (Keppra) 500 mg Q12HR PO 06/17/17 11:30 07/08/17 21:15 Pravastatin Sodium (Pravachol) 40 mg HS PO 06/18/17 21:00 07/08/17 21:15 Metoprolol Tartrate (Lopressor) 25 mg Q12HR PO 06/19/17 09:00 07/08/17 21:15 Hydralazine HCl (Apresoline Inj) 10 mg Q4H PRN IV PUSH SBP greater than 160 06/20/17 12:30 07/01/17 11:34 Albuterol Sulfate (Albuterol Neb) 2.5 mg Q2HR NEB PRN NEB dyspnea 06/27/17 09:15 Labetalol HCl (Trandate Inj) 10 mg Q1HR PRN IV PUSH SBP>160, DBP>90, HR>65 06/27/17 09:15 07/08/17 15:08 Propofol 100 ml @ 2.073 mls/ hr TITRATE PRN IV SEDATION 06/27/17 11:00 06/28/17 13:58 Fentanyl Citrate 250 ml @ 5 mls/hr TITRATE PRN IV SEDATION 06/27/17 11:00 07/06/17 04:21 Artificial Tears (Tears Naturale Opth Soln) 1 drop Q8HR EACH EYE 3/29/18 17:00 07/08/17 05:05 Polyethylene Glycol (Miralax) 17 gm BID PO 06/28/17 21:00 07/07/17 21:04 Metoclopramide HCl (Reglan Inj) 5 mg Q8HR IV PUSH 06/29/17 22:00 07/08/17 21:15 Docusate Sodium (Colace Liq) 100 mg Q12HR PO 06/29/17 21:00 07/08/17 21:14 Sennosides (Senna Liq) 8.8 mg BID PO 06/29/17 21:00 07/07/17 21:04 Famotidine (Pepcid) 20 mg BID PO 07/03/17 21:00 07/08/17 21:14 Folic Acid (Folate) 1 mg DAILY PO 07/04/17 09:15 07/08/17 10:32 Acetaminophen (Tylenol 650 Mg/ 20 ml Liq) 650 mg Q6H PRN PO fever 07/06/17 13:30 07/08/17 15:09 Albuterol/ Ipratropium (Duoneb Neb) 1 ampule Q6HR NEB NEB 07/06/17 22:00 07/09/17 07:55 (Bell Mooney) Current Medications Current Medications Sodium Chloride (NS Flush) 2 ml UNSCH PRN IV FLUSH FLUSH AFTER USING IV ACCESS Last administered on 07/02/17at 10:18; Start 06/15/17 at 05:15 Sodium Chloride 500 ml @ 500 mls/hr BOLUS ONCE IV ; Start 06/15/17 at 06:00; Stop 06/15/17 at 06:59; Status DC Nicardipine HCl 25 mg/Sodium Chloride 250 ml @ 50 mls/hr TITRATE PRN IV Blood pressure management Last administered on 06/19/17at 06:43; Start 06/15/17 at 06: 15; Stop 06/23/17 at 17:33; Status DC Pravastatin Sodium (Pravachol) 80 mg HS PO Last administered on 06/17/17at 23:23 ; Start 06/15/17 at 21:00; Stop 06/18/17 at 09:30; Status DC Levetriacetam 100 ml @ 400 mls/hr BOLUS ONCE IV Last administered on at 09:43; Start 06/15/17 at 06:30; Stop 06/15/17 at 06:44; Status DC Sodium Chloride 1,000 ml @ 100 mls/hr Q10H IV Last administered on 06/17/17at 07:29; Start 06/15/17 at 06:17; Stop 06/17/17 at 12:42; Status DC Acetaminophen (Tylenol) 650 mg Q6H PRN PO PAIN 1-10 AND/OR FEVER >101F Last administered on 06/23/17at 20:18; Start 06/15/17 at 06:30; Stop 07/06/17 at 13:27 ; Status DC Morphine Sulfate (Morphine Inj) 2 mg Q2H PRN IV PUSH PAIN SCALE 6 TO 10 Last administered on 06/19/17at 08:29; Start 06/15/17 at 06:30; Stop 06/20/17 at 08:25 ; Status DC Famotidine (Pepcid Inj) 10 mg Q12HR IV PUSH Last administered on 06/25/17at 08: 45; Start 06/15/17 at 09:00; Stop 06/25/17 at 16:28; Status DC Ondansetron HCl (Zofran Inj) 4 mg Q6H PRN IV PUSH NAUSEA OR VOMITING; Start at 06:30 Albuterol/ Ipratropium (Duoneb Neb) 1 ampule Q4HR NEB PRN INH WHEEZING; Start 06/15/17 at 06:30; Stop 06/27/17 at 09:15; Status DC Miscellaneous Information 1 Q361D XX Last administered on 06/15/17at 06:30; Start 06/15/17 at 06:30 Chlorhexidine Gluconate (Chlorhexidine 2% Cloth) 3 pack Taper DAILY@04 TOP Last administered on 06/20/17at 04:00; Start 06/16/17 at 04:00; Stop 06/12/18 at 03:59 Chlorhexidine Gluconate (Chlorhexidine 2% Cloth) 3 pack UNSCH PRN TOP HYGIENIC CARE; Start 06/15/17 at 06:30 Senna/Docusate Sodium ([place]-Colace) 1 tab BID PO Last administered on at 08:00; Start 06/15/17 at 09:00; Stop 06/29/17 at 15:16; Status DC Magnesium Hydroxide (Milk Of Magnesia Liq) 30 ml Q12H PRN PO Mild constipation Last administered on 06/22/17 20:58; Start 06/15/17 at 06:30 Sennosides (Senokot) 17.2 mg Q12H PRN PO Moderate constipation; Start 06/15/17 at 06:30 Bisacodyl (Dulcolax Supp) 10 mg DAILY PRN RECTAL SEVERE CONSITIPATION; Start at 06:30 Lactulose (Lactulose Liq) 30 ml DAILY PRN PO SEVERE CONSITIPATION Last administered on 06/22/17 20:58; Start 06/15/17 at 06:30 Rocuronium [place] (Zemuron Inj) 100 mg BOLUS ONCE IV Last administered on 14:34; Start 06/15/17 at 14:00; Stop 06/15/17 at 14:01; Status DC Midazolam HCl (Versed Inj) 5 mg ONCE ONCE IV PUSH Last administered on 14:35; Start 06/15/17 at 14:00; Stop 06/15/17 at 14:01; Status DC Chlorhexidine Gluconate (Peridex 0.12% Liq) 15 ml BID@08,20 MT Last administered on 07/09/17at 10:00; Start 06/15/17 at 20:00 Propofol 100 ml @ 0 mls/hr TITRATE PRN IV SEDATION; Start 06/15/17 at 14:00; Status UNV Midazolam HCl (Versed Inj) 5 mg STK-MED ONCE .ROUTE ; Start 06/15/17 at 14:07; Stop 06/15/17 at 14:08; Status DC Rocuronium [place] (Zemuron Inj) 50 mg STK-MED ONCE .ROUTE ; Start 06/15/17 at 14:07; Stop 06/15/17 at 14:08; Status DC Propofol 100 ml @ 1.941 mls/ hr TITRATE PRN IV SEDATION Last administered on at 14:41; Start 06/15/17 at 14:45; Stop 06/21/17 at 14:09; Status DC Miscellaneous Information (RASS Change Order) 1 ea ONCE ONCE XX Last administered on 06/15/17at 14:45; Start 06/15/17 at 14:45; Stop 06/15/17 at 14:46 ; Status DC Norepinephrine Bitartrate 4 mg/ Sodium Chloride 250 ml @ 7.5 mls/hr TITRATE PRN IV Maintain MAP > 70 mmHg; Start 06/15/17 at 19:45; Stop 06/15/17 at 21:37; Status DC Norepinephrine Bitartrate 4 mg/ Sodium Chloride 250 ml @ 7.5 mls/hr TITRATE PRN IV Maintain MAP > 70 mmHg Last administered on 06/15/17at 19:00; Start at 21:45; Stop 06/20/17 at 08:11; Status DC Levetriacetam (Keppra) 500 mg Q12HR PO Last administered on 07/09/17at 09:59; Start 06/17/17 at 11:30 Potassium Chloride 20 meq/ Lactated Ringer's 1,010 ml @ 42 mls/hr Q24H IV ; Start 06/17/17 at 12:45; Stop 06/17/17 at 13:02; Status DC Potassium Chloride 10 meq/ Lactated Ringer's 505 ml @ 42 mls/hr Q12H2M IV Last administered on 06/19/17at 22:32; Start 06/17/17 at 13:15; Stop 06/20/17 at 08:13; Status DC Pravastatin Sodium (Pravachol) 40 mg HS PO Last administered on 07/08/17at 21:15 ; Start 06/18/17 at 21:00 Potassium Phosphate 15 mmol/ Sodium Chloride 155 ml @ 38.75 mls/ hr ONCE ONCE IV Last administered on 06/19/17at 08:50; Start 06/19/17 at 08:00; Stop at 11:59; Status DC Metoprolol Tartrate (Lopressor) 25 mg Q12HR PO Last administered on 07/09/17at 10 :00; Start 06/19/17 at 09:00 Pharmacy Profile Note 0 ml @ 0 mls/hr UNSCH OTHER ; Start 06/20/17 at 08:15; Stop 06/21/17 at 14:09; Status DC Albuterol/ Ipratropium (Duoneb Neb) 1 ampule Q6HR NEB NEB Last administered on 06/24/17at 07:16; Start 06/20/17 at 10:00; Stop 06/24/17 at 09:59; Status DC Vancomycin HCl 1250 mg/Sodium Chloride 262.5 ml @ 262.5 mls/ hr ONCE ONCE IV Last administered on 06/20/17at 13:29; Start 06/20/17 at 12:00; Stop 06/20/17 at 12:59; Status DC Hydralazine HCl (Apresoline Inj) 10 mg Q4H PRN IV PUSH SBP greater than 160 Last administered on 07/01/17at 11:34; Start 06/20/17 at 12:30 Potassium Phosphate 15 mmol/ Sodium Chloride 155 ml @ 38.75 mls/ hr ONCE ONCE IV Last administered on 06/20/17at 17:05; Start 06/20/17 at 13:45; Stop at 17:44; Status DC Furosemide (Lasix Inj) 40 mg ONCE ONCE IV PUSH Last administered on 06/21/17at 08:53; Start 06/21/17 at 08:30; Stop 06/21/17 at 08:31; Status DC Cefazolin Sodium/ Dextrose 50 ml @ 100 mls/hr Q8H IV Last administered on 06/24at 15:02; Start 06/21/17 at 15:00; Stop 06/24/17 at 21:47; Status DC Cefazolin Sodium 2000 mg/Sodium Chloride 120 ml @ 240 mls/hr Q8H IV Last administered on 06/30/17at 06:06; Start 06/24/17 at 23:00; Stop 06/30/17 at 10:37 ; Status DC Famotidine (Pepcid) 10 mg BID PO Last administered on 07/03/17at 08:48; Start at 21:00; Stop 07/03/17 at 20:13; Status DC Chlorhexidine Gluconate (Hibiclens 4% Top Soln) 1 applic HS TOP Last administered on 06/27/17at 05:56; Start 06/26/17 at 21:00; Stop 06/28/17 at 21:01 ; Status DC Acetaminophen 100 ml @ As Directed STK-MED ONCE IV ; Start 06/27/17 at 07:04; Stop 06/27/17 at 07:05; Status DC Artificial Tears (Lacrilube Opht Oint) 3.5 applic STK-MED ONCE .ROUTE ; Start at 07:05; Stop 06/27/17 at 07:06; Status DC Lidocaine/ Epinephrine (Xylocaine-Epi 1%-1:100,000 Inj) 30 ml STK-MED ONCE .ROUTE ; Start 06/27/17 at 07:32; Stop 06/27/17 at 07:33; Status DC Thrombin (Thrombin Top Soln) 10,000 units STK-MED ONCE .ROUTE ; Start 06/27/17 at 07:32; Stop 06/27/17 at 07:33; Status DC Gelatin (Gelfoam 100 Top) 1 foam STK-MED ONCE .ROUTE ; Start 06/27/17 at 07:32; Stop 06/27/17 at 07:33; Status DC Bacitracin (Baciguent Oint) 15 applic STK-MED ONCE .ROUTE ; Start 06/27/17 at 07 :32; Stop 06/27/17 at 07:33; Status DC Gentamicin Sulfate (Gentamicin Inj) 240 mg STK-MED ONCE .ROUTE ; Start 06/27/17 at 07:33; Stop 06/27/17 at 07:34; Status DC Albuterol Sulfate (Albuterol Neb) 2.5 mg Q2HR NEB PRN NEB dyspnea; Start at 09:15 Labetalol HCl (Trandate Inj) 10 mg Q1HR PRN IV PUSH SBP>160, DBP>90, HR>65 Last administered on 07/08/17at 15:08; Start 06/27/17 at 09:15 Polyethylene Glycol (Miralax) 17 gm ONCE ONCE PO ; Start 06/27/17 at 09:15; Stop 06/27/17 at 09:19; Status DC Polyethylene Glycol (Miralax) 17 gm DAILY PO Last administered on 06/28/17at 08: 31; Start 06/28/17 at 09:00; Stop 06/28/17 at 15:18; Status DC Glycerin (Glycerin Adult Supp) 2 gm ONCE ONCE RECTAL ; Start 06/27/17 at 09:15 ; Stop 06/27/17 at 09:20; Status DC Sodium Chloride (Sodium Chloride) 1 gm ONCE ONCE PO ; Start 06/27/17 at 09:45; Stop 06/27/17 at 10:35; Status DC Propofol (Diprivan 500 Mg/ 50 ml Inj) 100 mg ONCE ONCE IV Last administered on 06/27/17at 11:10; Start 06/27/17 at 11:00; Stop 06/27/17 at 11:01; Status DC Chlorhexidine Gluconate (Peridex 0.12% Liq) 15 ml BID@08,20 MT ; Start 06/27/17 at 20:00; Status Cancel Propofol 100 ml @ 2.073 mls/ hr TITRATE PRN IV SEDATION Last administered on 13:54; Start 06/27/17 at 11:00 Fentanyl Citrate 250 ml @ 5 mls/hr TITRATE PRN IV SEDATION Last administered on 07/06/17at 04:21; Start 06/27/17 at 11:00 Lidocaine HCl (Xylocaine 2% Inj) 100 mg ONCE ONCE IV PUSH Last administered on 06/27/17at 13:34; Start 06/27/17 at 11:00; Stop 06/27/17 at 11:01; Status DC Etomidate (Amidate Inj) 40 mg ONCE ONCE IV PUSH Last administered on at 13:34; Start 06/27/17 at 11:00; Stop 06/27/17 at 11:01; Status DC Rocuronium [place] (Zemuron Inj) 100 mg BOLUS ONCE IV Last administered on at 13:35; Start 06/27/17 at 11:30; Stop 06/27/17 at 11:31; Status DC Lidocaine/ Epinephrine (Xylocaine-Epi 1%-1:100,000 Inj) 30 ml STK-MED ONCE .ROUTE ; Start 06/27/17 at 10:50; Stop 06/27/17 at 10:51; Status DC Rocuronium [place] (Zemuron Inj) 100 mg STK-MED ONCE .ROUTE ; Start 06/27/17 at 10:51; Stop 06/27/17 at 10:52; Status DC Artificial Tears (Tears Naturale Opth Soln) 1 drop Q8HR EACH EYE Last administered on 07/09/17 13:55; Start 06/28/17 at 17:00 Polyethylene Glycol (Miralax) 17 gm BID PO Last administered on 07/09/17 09:59 ; Start 06/28/17 at 21:00 Lactulose (Lactulose Liq) 30 ml QID PO Last administered on 07/01/17at 13:08; Start 06/28/17 at 18:00; Stop 07/01/17 at 14:12; Status DC Mineral Oil (Kondremul Liq) 30 ml ONCE ONCE PO Last administered on 06/28/17at 16:54; Start 06/28/17 at 17:00; Stop 06/28/17 at 17:01; Status DC Glycerin (Glycerin Adult Supp) 2 gm ONCE ONCE RECTAL Last administered on 06/28 16:54; Start 06/28/17 at 17:00; Stop 06/28/17 at 17:01; Status DC Methylnaltrexone [place] (Relistor Inj) 12 mg ONCE ONCE SQ Last administered on 06/28/17at 17:20; Start 06/28/17 at 17:00; Stop 06/28/17 at 17:01; Status DC Metoclopramide HCl (Reglan Inj) 5 mg Q8HR IV PUSH Last administered on at 21:15; Start 06/29/17 at 22:00 Methylnaltrexone [place] (Relistor Inj) 12 mg ONCE ONCE SQ Last administered on 06/29/17 17:14; Start 06/29/17 at 15:15; Stop 06/29/17 at 15:30; Status DC Docusate Sodium (Colace Liq) 100 mg Q12HR PO Last administered on 07/09/17at 09: 59; Start 06/29/17 at 21:00 Sennosides (Senna Liq) 8.8 mg BID PO Last administered on 07/09/17at 09:59; Start 06/29/17 at 21:00 Mineral Oil (Kondremul Liq) 30 ml ONCE ONCE PO Last administered on 06/29/17at 15:15; Start 06/29/17 at 15:15; Stop 06/29/17 at 15:30; Status DC Glycerin (Glycerin Adult Supp) 2 gm ONCE ONCE RECTAL Last administered on 06/29at 15:15; Start 06/29/17 at 15:15; Stop 06/29/17 at 15:30; Status DC Magnesium Citrate (Citroma Liq) 300 ml ONCE ONCE PO ; Start 06/30/17 at 10:45; Stop 06/30/17 at 10:49; Status DC Mineral Oil (Fleet Mineral Oil Enema) 118 ml ONCE ONCE RECTAL ; Start 06/30/17 at 10:45; Stop 06/30/17 at 10:49; Status DC Mineral Oil (Kondremul Liq) 30 ml ONCE ONCE PO ; Start 06/30/17 at 10:45; Stop 06/30/17 at 10:49; Status DC Sodium Phosphate 30 mmol/Sodium Chloride 260 ml @ 43.333 mls/ hr ONCE ONCE IV ; Start 06/30/17 at 12:00; Stop 06/30/17 at 17:59; Status DC Magnesium Sulfate/ Dextrose 100 ml @ 100 mls/hr Q1H IV Last administered on at 11:45; Start 06/30/17 at 10:45; Stop 06/30/17 at 12:44; Status DC Piperacillin Sod/ Tazobactam Sod 100 ml @ 200 mls/hr Q6H IV Last administered on 07/07/17at 09:59; Start 06/30/17 at 11:00; Stop 07/07/17 at 11:00; Status DC Albuterol/ Ipratropium (Duoneb Neb) 1 ampule Q6HR WHILE AWAKE NEB NEB Last administered on 07/05/17at 13:13; Start 07/01/17 at 20:00; Stop 07/05/17 at 14:07; Status DC Potassium Chloride (KCl Powder) 20 meq ONCE ONCE PO ; Start 07/02/17 at 22:15; Stop 07/02/17 at 22:16; Status DC Famotidine (Pepcid) 20 mg BID PO Last administered on 07/09/17at 09:59; Start 07/03/17 at 21:00 Folic Acid (Folate) 1 mg DAILY PO Last administered on 07/09/17at 09:59; Start at 09:15 Albuterol/ Ipratropium (Duoneb Neb) 1 ampule Q6HR WHILE AWAKE NEB NEB Last administered on 07/06/17at 13:06; Start 07/05/17 at 14:00; Stop 07/06/17 at 13:27; Status DC Albuterol/ Ipratropium (Duoneb Neb) 1 ampule Q6HR ALT NEB NEB ; Start 07/06/17 at 19:00; Stop 07/06/17 at 19:00; Status DC Acetaminophen (Tylenol 650 Mg/ 20 ml Liq) 650 mg Q6H PRN PO fever Last administered on 07/08/17at 15:09; Start 07/06/17 at 13:30 Albuterol/ Ipratropium (Duoneb Neb) 1 ampule Q6HR NEB NEB Last administered on 07/09/17at 07:55; Start 07/06/17 at 22:00 Midazolam HCl (Versed Inj) 5 mg ONCE ONCE IV PUSH ; Start 07/09/17 at 14:00; Stop 07/09/17 at 14:01; Status DC Rocuronium [place] (Zemuron Inj) 50 mg BOLUS ONCE IV ; Start 07/09/17 at 14:00; Stop 07/09/17 at 14:01; Status DC Fentanyl Citrate (fentaNYL INJ) 200 mcg ONCE ONCE IV PUSH ; Start 07/09/17 at 14 :00; Stop 07/09/17 at 14:01; Status DC (Andre Nixon MD) Medical Decision Making MDM Remarks 77 y/o female with large hemorrhagic stroke, she had evidence of hydrocephalus, she underwent placement of ventriculostomy drain 06/15/17 due to worsening mental status with improvement of mental status pt did not tolerate clamping of ventriculostomy drain, ventriculostomy drain replaced 06/27/17, [employer] shunt held due to new right side stroke, rechallenging ventriculostomy (Bell Mooney) Plan Plan Remarks continue vent weaning per critical care, okay for tracheostomy if needed raise EVD to 20 cm H20 today, monitor ICPs, follow up neuro exam neuro checks (Bell Mooney) Attending Statement Neuro. Continue neuro checks. Challinging ventriculostomy, draining less CSF while monitoring ICP. Will increase ventriculostomy to 15 cm H20 Pulmonary. Continue mechanical ventilation and aggressive pulmonary toilette, nasotracheal suction, and breathing treatments with nebulizers. She is not weaning from the vent. She will need a tracheostomy Daily PT and OT Renal. Continue to monitor closely urine output, BUN and creatinine Endocrine. Continue to Monitor serial Acu checks and SSI as needed in detail ID continue to monitor for signs of infection Continue Protonix for stress ulcer prophylaxis Continue Nickolas hose and SCD's for DVT prophylaxis Further recommendations will be provided depending on the patient's clinical evaluation and follow up studies. The exam, history, and the medical decision-making described in the above note were completed with the assistance of the mid-level provider. I reviewed and agree with the findings presented. I attest that I had a [id number] encounter with the patient on the same day, and personally performed and documented my assessment and findings in the medical record (Andre Nixon MD) Bell Mooney Jul 09, 2017 09:35 Andre Nixon MD Jul 09, 2017 14:03
[2017-07-09] MEDS: FAMOTIDINE 20 MG TAB PO SCH ×2 (09:59→21:00)
[2017-07-09] MEDS: levETIRAcetam 500 MG TAB PO SCH (09:59)
[2017-07-09] MEDS: POLYETHYLENE GLYCOL 17 GM PKG PO SCH ×2 (09:59→21:00)
[2017-07-09] MEDS: SENNOSIDES SYRUP 8.8 MG/5 ML CUP PO SCH ×2 (09:59→21:00)
[2017-07-09] MEDS: DOCUSATE SODIUM 100 MG/10 ML UDC PO SCH ×2 (09:59→21:00)
[2017-07-09] MEDS: FOLIC ACID 1 MG TAB PO SCH (09:59)
[2017-07-09] MEDS: CHLORHEXIDINE 0.12% (ORAL KIT) 15 ML CUP MT SCH ×2 (10:00→21:17)
[2017-07-09] MEDS: METOPROLOL TARTRATE 25 MG TAB PO SCH ×2 (10:00→21:00)
--- NOTE | 2017-07-09 10:57 | HHI.CCPN ---
Subjective Remarks/Hospital Course Severely dehydrated, elderly woman presents confused to [facility] ED with hypertensive urgency and semi-acute right hemispheric parenchymal brain hemorrhage. Arrived from [facility] on cardene gtt and aphasic. Handness not determined yet. Unable to get ROS. No anticoagulants. INR normal. 06/16: Flaccid left side. Minimal eye opening. Moves right arm and leg to stimulation. Breathes over vent. ICP control, EVD draining well. 06/17: Moving both arms, right much stronger. More alert but episodic apnea spells. 06/18: No events over the night. Patient remains intubated, off sedation. She is currently on pressure support, 01/04, doing well. Awake, following commands. Son present at bedside. T-max of 99.6. I/O 250/1545. 06/19: No events over the night. Patient did well yesterday on pressure support , but was not able to be extubated secondary to no cuff leak. She remains on Cardene currently at 9.5 mg/h. Afebrile with a T-max of 99.4. Negative fluid balance. 06/20: Patient did well over the night. T-max of 100.2. ICP of 4. Thick sputum secretions sent yesterday for culture now growing Staphylococcus. Patient is awake, off sedation following some commands. Off Cardene drip since yesterday. 06/21: Patient did well postextubation and over the night. T-max of 100 yesterday morning. Very good urine output. Patient awake following commands, denying any pain. 06/22: No events over the night. Patient doing well. She is awake and alert, denies headache, nausea, vomiting. No chest pain, no dyspnea, no palpitations. On 2 L nasal cannula. Afebrile over the last 24 hours. Diuresed well post Lasix and she is on negative fluid balance since admission. 06/23: Patient awake, feels better, denies chest pain, shortness of breath, palpitations, headache. Still has productive cough. Afebrile, urine output is adequate. 06/24: No events over the night. Patient afebrile over the last 24 hours. She remains awake, resting in bed, denies any complaints. Sons at bedside. 06/25: Resting comfortably. Drowsy, arousable. EVD at 15cm, drained 60 cc overnight. 06/26: Resting comfortably. Awake and alert. EVD in place drain 10 cc overnight however has some clear fluid draining around ventriculostomy site. Dr. Nixon planning MEDICAL ATTENDANT shunt for tomorrow. 06/27: Afebrile. Less arousable today. Eyes are closed. Subjective left-sided weakness. EVD in place at 20 cm. 4 cc overnight. On cefazolin with clear fluid draining from ventriculostomy site. MRI brain currently pending. 06/28: Afebrile. Intubated yesterday secondary to altered mental status/ aspiration. Arousable and follows commands in the ventilator. 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 Echocardiogram pending. Possibly some right carotid stenosis on carotid ultrasound which does not correlate to this current acute left MCA CVA 06/29: Afebrile. More arousable today. Spontaneously moving left upper extremity. Opens eyes to voice. Not following commands. Tolerating tube feeds at goal. 06/30: Resting in bed in no acute distress. More arousable today. Spontaneously moving left upper extremity. Opens eyes to voice. No bowel movement 07/01: T-max 99.8. Currently 99.3. Opens eyes to voice. Squeezes bilateral hands right greater than left. Not following commands however. Tolerating spontaneous breathing trial 07/02: T-max 100.1. Currently afebrile. Did not tolerate CPAP trial today. Slightly more responsive today briefly follow commands right greater than left. Tolerating tube feeding. 07/03: Tolerating CPAP trial today. T-max 100.1. Currently 98.5. 2 bowel movements. More arousable and alert today 07/04: on PSV 10/5/40%. more awake today. follows commands. 07/05: continues to be more awake and alert, but also continues to fail CPAP trials. becomes tachypneic and distress. Subjective 07/06: Afebrile. Arousable and follows commands. Neurologically stable. Tolerating tube feeding. On PSV trial since 1050 but currently going to back up mode secondary to apnea. 07/07: Will trial SBTs daily, watch for apnea periods. 07/08: Fentanyl off and she is a little more active today. She may be blind. Unable to extubate today. 07/09: Remains intubated off sedation, ischial spontaneously open moves extremities spontaneously but intermittently. Do not follow commands. Too weak to protect airway successfully. Vent day will need trach and PEG, Dr. Nixon agrees. Will discuss with son. Objective Vital Signs Date Time Temp Pulse Resp B/P (MAP) Pulse Ox O2 Delivery O2 Flow Rate FiO2 07/09/17 07:50 40 07/09/17 07:50 98 07/09/17 06:00 70 07/09/17 04:00 99.7 19 160/74 (102) 07/08/17 19:00 Mechanical Ventilator Intake and Output 07/09/17 07/09/17 07/10/17 08:00 16:00 00:00 Intake Total 605 ml Output Total 690 ml Balance -85 ml Result Diagram: 07/09/17 0515 07/09/17 0515 Imaging Last Impressions Chest X-Ray 07/02/17599 Signed Impressions: Service Date/Time: Sunday, July 02, 2017 04:23 - CONCLUSION: No significant change Harsha Wen MD Abdomen X-Ray 07/01/17 06 Signed Impressions: Service Date/Time: Saturday, July 01, 2017 04:18 - CONCLUSION: 1. Nonspecific bowel gas pattern without evidence for obstruction or free air. Ivan Bahena MD Carotid Artery Ultrasound 06/27/17 0000 Signed Impressions: Service Date/Time: Tuesday, June 27, 2017 12:59 - CONCLUSION: 1. Moderate diffuse atherosclerotic plaquing at both carotid bifurcations. 2. Mild elevated velocity in the proximal right internal carotid artery. If clinically indicated , recommend CTA of the carotid arteries for further evaluation. 3. No definite high grade or hemodynamically significant stenosis is demonstrated. David Moore MD Brain MRI 06/27/17 0000 Signed Impressions: Service Date/Time: Tuesday, June 27, 2017 09:23 - CONCLUSION: 1. New development of a nonhemorrhagic acute infarct involving the left occipital lobe. 2. Otherwise, the rest of the exam is stable compared to the prior MRI. David Moore MD Head CT 06/26/17 0000 Signed Impressions: Service Date/Time: Monday, June 26, 2017 10:08 - CONCLUSION: 1. Continued evolution of right cerebral hematoma with slightly increasing surrounding edema. 2. No new hemorrhage identified. 3. Continued ventricular dilatation with no further decompression following placement of ventriculostomy. 4. No significant shift of midline structures. Rene Lomeli MD Head Magnetic Resonance Angiography 06/15/17 0000 Signed Impressions: Service Date/Time: Thursday, June 15, 2017 11:52 - CONCLUSION: MRA within normal limits. There is a parenchymal hemorrhage in the posterior right temporal lobe with intraventricular extension. Ivan Bahena MD Objective Remarks General - 77-year-old female, orotracheally intubated HEENT - pupils are equal, about 3 mm bilaterally, neck is supple. Left frontal [place] hole with placement of a ventriculostomy catheter, moist mucous membranes. CV -RRR. sinus, no JVD. Chest - Equal chest rise. unlabored, clear. Abdomen - soft, nontender, not distended, no guarding. bs active. Extremities -warm, 1+ edema, + peripheral pulses, well perfused. Neuro: Opens eyes, not following commands on the ventilator. Left gaze preference., no facial asymmetry, not following commands today, withdraws briskly to pain and grimaces A/P Problem List: (1) Hemorrhagic stroke ICD Code: I61.9 - Nontraumatic intracerebral hemorrhage, unspecified Status: Acute (2) Hypertensive urgency ICD Code: I16.0 - Hypertensive urgency Status: Acute (3) Encephalopathy, metabolic ICD Code: G93.41 - Metabolic encephalopathy Status: Acute (4) CLAYTON (acute kidney injury) ICD Code: N17.9 - Acute kidney failure, unspecified Status: Acute Assessment and Plan Neuro/Psych: Right posterior temporal/occipital/parietal intra-axial hematoma Left MCA posterior temporal occipital CVA Right complex partial seizure Wernicke aphasia Acute encephalopathy Currently off fentanyl drip. CT brain 06/25 revealed a right occipital parietal intra-axial hematoma with mild surrounding edema. Right ventriculostomy placed 06/27-neurosurgery managing MRI brain revealed a left MCA CVA involving the left posterior temporal occipital region On levetiracetam 500 mg twice daily for seizure. Acetaminophen 650 mg p.o. every 6 hours as needed fever/pain 1 through 10 MRI brain admission revealed right posterior temporal hemorrhage with ventricular extension MRA brain negative for aneurysm Carotid Dopplers with possible right carotid stenosis. Does not explain acute left MCA CVA. ESR, CRP and hypercoagulable workup pending Followed by Dr. Crowell neurology CV: Hypertensive emergency Dyslipidemia Currently on metoprolol 25 mg by mouth twice daily Currently on pravastatin 40 mg daily/on atorvastatin 40 mg daily at home Holding aspirin 81 mg daily in light of acute hemorrhage 06/29 echo - Normal left ventricular size. Mild concentric LVH. The left ventricular systolic function is hyperdynamic with an estimated ejection fraction in the range of 65-70%. Trace TR. The estimated PASP is 43 mmHg. Resp: Acute hypoxic and hypercarbic respiratory failure secondary to aspiration Reintubated secondary to new acute CVA with aspiration, vent day 13 Do not follow commands, generalized weakness will not be able to protect airway if extubated Recommend tracheostomy placement. Will discuss with son PRVC ventilation. CPAP trials as tolerated Ventilator bundle. Albuterol/ipratropium aerosols every 6 hours alternate nebs with albuterol aerosols every 2 hours as needed dyspnea GI: Hypoalbuminemia Constipation Jevity 1.5 at 50 cc an hour at goal Famotidine 20 mg twice daily for GI prophylaxis Docusate sodium/senna 1 tablet twice daily for bowel regimen. Continue polyethylene glycol 17 g twice daily, : no indication for kent catheter. Endo: Sliding scale insulin if indicated to maintain euglycemia Renal: Creatinine currently within normal limits Monitor urine output Accurate I's and O's Heme: Normocytic anemia Monitor CBC daily. Follow trend Hypercoagulable workup currently in process ID: Serratia plymithica, MSSA and Klebsiella pneumonia Completed cefazolin 2 g IV every 8 hours day #7 -> done Switch to penicillin/tazobactam day #7 -> done Pertinent cultures 06/30 -sputum -Serratia Plymithica/Klebsiella pneumonia 06/29 -blood cultures 2 -no growth 06/18 -staph aureus/Klebsiella pneumonia sputum FEN: Replace electrolytes as clinically indicated MSK: Osteoarthritis/osteoporosis Holding alendronate 70 mg weekly. Resume clinically indicated Access -Utilize peripheral IV. Central line if indicated Prophylaxis -GI -famotidine -DVT -SCD/holding pharmacological prophylaxis in light of cerebral hematoma. Initiate when okay with neurosurgery Overall impression: Stable hemodynamics. Unable to wean off ventilator yet. No reaction to visual threat, concern for blindness. Will need tracheostomy, vent day 13. Hansel Eagle MD Jul 09, 2017 10:57
[2017-07-09] MEDS: PROPOFOL 1000 MG/100 ML INJ 100 ML IV PRN (13:54)
[2017-07-09] MEDS ORDERED: fentaNYL CITRATE 250 MCG/5 ML AMP IV PUSH ONE (14:00)
[2017-07-09] MEDS ORDERED: MIDAZOLAM HCL 5 MG/5 ML VIAL IV PUSH ONE (14:00)
[2017-07-09] MEDS ORDERED: ROCURONIUM INJ 50 MG/5 ML VIAL IV ONE (14:00)
[2017-07-09] MEDS ORDERED: NOREPINEPHRINE-DEXTROSE DRIP 250 ML IV ONE (15:47)
--- NOTE | 2017-07-09 16:25 | PD.PROCEDR ---
Procedure Note Procedure Procedure: Percutaneous tracheostomy with bronchoscopic guidance Operators: Dr. Hansel Mcleod for percutaneous tracheostomy, Dr. Gunter for bronchoscopy Informed consent obtained from family and documented on chart Preoperative diagnosis: Stroke, intracranial hemorrhage, unable to wean Postoperative diagnosis: Same Anesthesia used: Versed 5 mg IV, fentanyl 100 g IV, continuous propofol infusion, rocuronium 50 mg IV for neuromuscular blockade. 1% lidocaine for local infiltration anesthesia Procedure: After ensuring adequate sedation/analgesia neuromuscular blockade, patient was positioned appropriately. After sterile prepping and draping, 1% lidocaine was used for local infiltration anesthesia. Dr. Gunter proceeded with bronchoscopy and withdrawing ET tube. Introducer Angiocath was inserted into the trachea under bronchoscopic guidance and Angiocath was advanced into the trachea following which needle was removed. A guidewire was passed via Angiocath and was visualized passing down the trachea following which Angiocath was then removed. Punch dilator was used to dilate the tracheal ring; following which tracheostomy dilator assembly was mounted over the guidewire and advanced to dilate the tracheal opening. The dilator was visualized via bronchoscopic guidance entering the trachea without injuring the posterior tracheal wall. Following this dilator assembly was removed and percutaneous tracheostomy mounted over dilator was advanced over the guidewire into the trachea under direct visualization following which guidewire/dilator were removed. Bronchoscope was inserted at this point by Dr. Gunter via newly inserted tracheostomy and appropriate placement was confirmed by visualizing tracheal rings, main [place]a. Bronchoscope was withdrawn and inner cannula was placed via tracheostomy. After inflating cuff patient was connected to mechanical ventilation via tracheostomy. 4 interrupted sutures were used to secure tracheostomy to neck. Patient tolerated the procedure well with no immediate complications noted. Good hemostasis was achieved at the end of procedure. Postprocedure chest x-ray was ordered and was pending at the time. Hansel Mcleod MD Jul 09, 2017 16:24
--- NOTE | 2017-07-09 16:53 | RADRPT ---
EXAM DATE/TIME: 07/09/2017 16:34 [facility] COMPARISON: CHEST SINGLE AP, July 07, 2017, 3:14. INDICATIONS : Post tracheostomy. MEDICAL HISTORY : Hypertension. CVA. SURGICAL HISTORY : None. ENCOUNTER: Initial ACUITY: 1 day PAIN SCORE: Non-responsive. LOCATION: Bilateral chest FINDINGS: Trach tube in good position. Mild complete cardiomegaly. No pneumothorax. Minimal bibasilar parenc hymal changes CONCLUSION: Trach tube in good position without pneumothorax. Seun Shirley MD FACR on July 09, 2017 at 16:50 Board Certified Radiologist. This report was verified electronically.
--- NOTE | 2017-07-09 17:05 | PD.PROCEDR ---
Procedure Note Procedure Diagnosis: Hypoxemic respiratory failure Operation: Therapeutic flexible fiberoptic bronchoscopy Procedure: Timeout performed, patient identification accomplished. The patient is on mechanical ventilation via orotracheal intubation with the usual ICU monitoring devices in place. Through a sealed side-port in the ventilator circuit the bronchoscope was delivered into the main trachea. The mid trachea downward to the [place]a was normal. The left and right mainstem segments were normal. Segmental branching was anatomically normal and the segments had small amounts of secretions which were suctioned clean. The mucosa was not inflamed. The bronchoscope along with the endotracheal tube was then withdrawn to the level of the cricoid cartilage. Mechanical ventilation continued to be accomplished. The bronchoscope at this location was used to visualize the percutaneous tracheostomy performed by separate team and dictated under separate note. Following insertion of the percutaneous tracheostomy tube the flexible bronchoscope was delivered through that new tube into the tracheobronchial tree to confirm that the new tube was in good position in the main trachea. Small amounts of blood were suctioned free and there was no bleeding from above. The inner cannula was inserted and the vent circuit converted over to the new tracheostomy tube. Ventilator return volumes were normal and airway pressures were not elevated. Oxygen saturation was maintained greater than 95% throughout the procedure. Trach ties were applied around the neck at the end of the procedure. A chest x-ray confirmed good position of the tracheostomy tube well above the modesta. Ulisses Gunter MD Jul 09, 2017 17:05
[2017-07-09] MEDS: PRAVASTATIN SOD 40 MG TAB PO SCH (21:00)
[2017-07-09] MEDS: CHLORHEXIDINE GLUCONATE 2 % 1 PACK (2 CLOTHS) TOP SCH (21:16)
[2017-07-09] MEDS: levETIRAcetam 500 MG/NS 100 ML IV SCH ×2 (21:34)
[2017-07-09] MEDS: hydrALAZINE HCL 20 MG/ML VIAL IV PUSH PRN (23:45)
[2017-07-10] VITALS (17 sets, daily range): BP systolic 129–170; BP diastolic 60–79; PULSE 83–104; RESP 16–28; TEMP 97.2–99.4; O2SAT 97–100
[2017-07-10] MEDS: RESP: ALBUTEROL 2.5 MG/IPRATROPIUM 0.5 MG NEB (SCH) NEB ×4 (03:39→20:29)
[2017-07-10 03:50] LABS: HEMATOCRIT 24.6 % (35.0-46.0); HEMOGLOBIN 8.4 GM/DL (11.6-15.3); MEAN CELL VOLUME 88.7 FL (80.0-100.0); MEAN CORPUSCULAR HEMOGLOBIN 30.3 PG (27.0-34.0); MEAN CORPUSCULAR HGB CONC 34.2 % (32.0-36.0); MEAN PLATELET VOLUME 8.2 FL (7.0-11.0); PLATELET COUNT 254 TH/MM3 (150-450); RED BLOOD COUNT 2.78 MIL/MM3 (4.00-5.30); RED CELL DISTRIBUTION WIDTH 13.9 % (11.6-17.2); WHITE BLOOD COUNT 10.7 TH/MM3 (4.0-11.0)
[2017-07-10 04:13] LABS: BICARBONATE 20.5 MEQ/L (21.0-32.0); CALCIUM 8.4 MG/DL (8.5-10.1); CREATININE 0.83 MG/DL (0.50-1.00)
[2017-07-10] MEDS: METOCLOPRAMIDE HCL 10 MG/2 ML VIAL IV PUSH SCH ×3 (06:28→22:54)
[2017-07-10] MEDS: ARTIFICIAL TEARS OPTH SOLN 15 ML BTL EACH EYE SCH ×3 (06:28→22:54)
[2017-07-10] MEDS: CHLORHEXIDINE 0.12% (ORAL KIT) 15 ML CUP MT SCH ×2 (08:00→19:43)
--- NOTE | 2017-07-10 08:01 | HHI.PR ---
Review/Management Diagnosis/Plan: (1) Acute ischemic left MCA stroke ICD Codes: I63.512 - Cerebral infarction due to unspecified occlusion or stenosis of left middle cerebral artery Status: Acute Plan: left posterior mca temp-occipital infarct carotid u/s rt carotid stenosis- doesn't explain infarct mra brain previous nml 06/17 lipids nml hyper coag labs-antithrombin 3 slightly elevated. elevated homocysteine eeg- no sz activity echo-LVEF 65-70% folic acid supplementation for hyperhomocysteinemia has ventric in recs neuro stable p.t. ccm, nsx following (2) Intracranial hemorrhage ICD Codes: I62.9 - Nontraumatic intracranial hemorrhage, unspecified Status: Acute Plan: rt o-p ich large spontaneous, likely hypertensive mra brain-nml, s/p left svp group director shunt 06/27 (3) Encephalopathy, metabolic ICD Codes: G93.41 - Metabolic encephalopathy Status: Acute Plan: due to ich (4) Hypertensive emergency ICD Codes: I16.1 - Hypertensive emergency Status: Acute Plan: improved on bp meds (5) C[place]TON (acute kidney injury) ICD Codes: N17.9 - Acute kidney failure, unspecified Status: Acute Subjective Subjective Comments No acute events reported Active Medications Current Medications Medications (Trade) Dose Ordered Sig/Jose Guadalupe Route Start Time Stop Time Status Last Admin (NS Flush) 2 ml UNSCH PRN IV FLUSH 06/15/17 05:15 07/02/17 10:18 (Zofran Inj) 4 mg Q6H PRN IV PUSH 06/15/17 06:30 Miscellaneous Information 1 Q361D XX 06/15/17 06:30 06/15/17 06:30 (Chlorhexidine 2% Cloth) Taper DAILY@04 TOP 06/16/17 04:00 06/12/18 03:59 06/20/17 04:00 (Chlorhexidine 2% Cloth) 3 pack UNSCH PRN TOP 06/15/17 06:30 (Milk Of Magnesia Liq) 30 ml Q12H PRN PO 06/15/17 06:30 06/22/17 20:58 (Senokot) 17.2 mg Q12H PRN PO 06/15/17 06:30 (Dulcolax Supp) 10 mg DAILY PRN RECTAL 06/15/17 06:30 (Lactulose Liq) 30 ml DAILY PRN PO 06/15/17 06:30 06/22/17 20:58 (Peridex 0.12% Liq) 15 ml BID@08,20 MT 06/15/17 20:00 07/09/17 21:17 (Pravachol) 40 mg HS PO 06/18/17 21:00 07/08/17 21:15 (Lopressor) 25 mg Q12HR PO 06/19/17 09:00 07/09/17 10:00 (Apresoline Inj) 10 mg Q4H PRN IV PUSH 06/20/17 12:30 07/09/17 23:45 (Albuterol Neb) 2.5 mg Q2HR NEB PRN NEB 06/27/17 09:15 (Trandate Inj) 10 mg Q1HR PRN IV PUSH 06/27/17 09:15 07/08/17 15:08 Propofol 100 ml @ 2.073 mls/ hr TITRATE PRN IV 06/27/17 11:00 07/09/17 13:54 Fentanyl Citrate 250 ml @ 5 mls/hr TITRATE PRN IV 06/27/17 11:00 07/06/17 04:21 (Tears Naturale Opth Soln) 1 drop Q8HR EACH EYE 06/28/17 17:00 07/10/17 06:28 (Miralax) 17 gm BID PO 06/28/17 21:00 07/09/17 09:59 (Reglan Inj) 5 mg Q8HR IV PUSH 06/29/17 22:00 07/10/17 06:28 (Colace Liq) 100 mg Q12HR PO 06/29/17 21:00 07/09/17 09:59 (Senna Liq) 8.8 mg BID PO 06/29/17 21:00 07/09/17 09:59 (Pepcid) 20 mg BID PO 07/03/17 21:00 07/09/17 09:59 (Folate) 1 mg DAILY PO 07/04/17 09:15 07/09/17 09:59 (Tylenol 650 Mg/ 20 ml Liq) 650 mg Q6H PRN PO 07/06/17 13:30 07/08/17 15:09 (Duoneb Neb) 1 ampule Q6HR NEB NEB 07/06/17 22:00 07/10/17 03:39 Levetriacetam 500 mg/Sodium Chloride 105 ml @ 420 mls/hr Q12HR IV 07/09/17 21:30 07/09/17 21:34 Allergies Allergies Coded Allergies No Known Allergies (Unverified Allergy, Unknown, 07/09/17) Review of Systems All other ROS: Unable to obtain (not verbal at this time) Exam I&O / VS Vital Signs Date Time Temp Pulse Resp B/P (MAP) Pulse Ox O2 Delivery O2 Flow Rate FiO2 07/10/17 06:00 101 07/10/17 04:00 40 07/10/17 04:00 88 07/10/17 04:00 98.8 88 17 133/69 (90) 100 07/10/17 03:39 99 40 07/10/17 02:00 96 07/10/17 00:20 97 40 07/10/17 00:00 40 07/10/17 00:00 99.4 86 17 129/60 (83) 98 07/10/17 00:00 86 07/09/17 22:00 88 07/09/17 20:25 100 40 07/09/17 20:00 79 07/09/17 20:00 99.9 79 16 166/77 (106) 100 07/09/17 20:00 40 07/09/17 19:00 100 Mechanical Ventilator 40 07/09/17 18:00 77 07/09/17 16:41 100 40 07/09/17 16:00 99.1 77 23 150/72 (98) 100 07/09/17 16:00 79 07/09/17 16:00 100 07/09/17 16:00 97 100 07/09/17 15:47 70 128/60 07/09/17 14:22 100 40 07/09/17 14:00 100 07/09/17 14:00 74 07/09/17 12:00 74 07/09/17 12:00 99.3 75 17 155/71 (99) 100 07/09/17 12:00 40 07/09/17 11:47 100 40 07/09/17 10:00 87 07/09/17 09:00 143/62 (89) 07/09/17 08:00 40 07/09/17 08:00 75 07/09/17 08:00 99.4 82 39 170/79 (109) 100 07/09/17 08:00 100 Mechanical Ventilator 40 Respiratory: Symmetrical expansion Exam Comments trach, alert, not following,, ou 2-1.5mm, moves left side, rt hemiparesis Objective Micro and Labs Laboratory Tests Test 07/10/17 03:20 White Blood Count 10.7 Red Blood Count 2.78 Hemoglobin 8.4 Hematocrit 24.6 Mean Corpuscular Volume 88.7 Mean Corpuscular Hemoglobin 30.3 Mean Corpuscular Hemoglobin Concent 34.2 Red Cell Distribution Width 13.9 Platelet Count 254 Mean Platelet Volume 8.2 Blood Urea Nitrogen 20 Creatinine 0.83 Random Glucose 100 Calcium Level 8.4 Sodium Level 136 Potassium Level 3.9 Chloride Level 103 Carbon Dioxide Level 20.5 Anion Gap 13 Estimat Glomerular Filtration Rate 66 Date/Time Source Procedure Growth Status 06/29/17 20:02 Blood Peripheral Aerobic Blood Culture - Final NO GROWTH IN 5 DAYS Complete 06/29/17 20:02 Blood Peripheral Anaerobic Blood Culture - Final NO GROWTH IN 5 DAYS Complete 06/27/17 11:20 Cerebral Spinal Fluid Shunt Fluid Gram Stain - Final Complete 06/27/17 11:20 Cerebral Spinal Fluid Shunt Fluid CSF Culture - Final NO GROWTH IN 72 HRS.--AEROBICALLY OR ... Complete 06/30/17 12:30 Sputum Endotracheal Gram Stain - Final Complete 06/30/17 12:30 Sputum Culture - Final Klebsiella Pneumoniae Serratia Plymuthica Complete Jose Cruz Crowell MD Jul 10, 2017 08:01
[2017-07-10] MEDS: SENNOSIDES SYRUP 8.8 MG/5 ML CUP PO SCH ×2 (08:30→21:00)
[2017-07-10] MEDS: POLYETHYLENE GLYCOL 17 GM PKG PO SCH ×2 (08:30→21:00)
[2017-07-10] MEDS: FOLIC ACID 1 MG TAB PO SCH (08:30)
[2017-07-10] MEDS: METOPROLOL TARTRATE 25 MG TAB PO SCH ×2 (08:30→22:54)
[2017-07-10] MEDS: LABETALOL HCL 100 MG/20 ML VIAL IV PUSH PRN ×2 (08:30→18:07)
[2017-07-10] MEDS: FAMOTIDINE 20 MG TAB PO SCH (08:30)
[2017-07-10] MEDS: DOCUSATE SODIUM 100 MG/10 ML UDC PO SCH ×2 (08:30→22:53)
[2017-07-10] MEDS: levETIRAcetam 500 MG/NS 100 ML IV SCH ×4 (08:30→19:44)
--- NOTE | 2017-07-10 10:07 | HHI.CCPN ---
Subjective Remarks/Hospital Course Severely dehydrated, elderly woman presents confused to [facility] ED with hypertensive urgency and semi-acute right hemispheric parenchymal brain hemorrhage. Arrived from [facility] on cardene gtt and aphasic. Handness not determined yet. Unable to get ROS. No anticoagulants. INR normal. 06/16: Flaccid left side. Minimal eye opening. Moves right arm and leg to stimulation. Breathes over vent. ICP control, EVD draining well. 06/17: Moving both arms, right much stronger. More alert but episodic apnea spells. 06/18: No events over the night. Patient remains intubated, off sedation. She is currently on pressure support, 01/04, doing well. Awake, following commands. Son present at bedside. T-max of 99.6. I/O 250/1545. 06/19: No events over the night. Patient did well yesterday on pressure support , but was not able to be extubated secondary to no cuff leak. She remains on Cardene currently at 9.5 mg/h. Afebrile with a T-max of 99.4. Negative fluid balance. 06/20: Patient did well over the night. T-max of 100.2. ICP of 4. Thick sputum secretions sent yesterday for culture now growing Staphylococcus. Patient is awake, off sedation following some commands. Off Cardene drip since yesterday. 06/21: Patient did well postextubation and over the night. T-max of 100 yesterday morning. Very good urine output. Patient awake following commands, denying any pain. 06/22: No events over the night. Patient doing well. She is awake and alert, denies headache, nausea, vomiting. No chest pain, no dyspnea, no palpitations. On 2 L nasal cannula. Afebrile over the last 24 hours. Diuresed well post Lasix and she is on negative fluid balance since admission. 06/23: Patient awake, feels better, denies chest pain, shortness of breath, palpitations, headache. Still has productive cough. Afebrile, urine output is adequate. 06/24: No events over the night. Patient afebrile over the last 24 hours. She remains awake, resting in bed, denies any complaints. Sons at bedside. 06/25: Resting comfortably. Drowsy, arousable. EVD at 15cm, drained 60 cc overnight. 06/26: Resting comfortably. Awake and alert. EVD in place drain 10 cc overnight however has some clear fluid draining around ventriculostomy site. Dr. Nixon planning [employer] shunt for tomorrow. 06/27: Afebrile. Less arousable today. Eyes are closed. Subjective left-sided weakness. EVD in place at 20 cm. 4 cc overnight. On cefazolin with clear fluid draining from ventriculostomy site. MRI brain currently pending. 06/28: Afebrile. Intubated yesterday secondary to altered mental status/ aspiration. Arousable and follows commands in the ventilator. 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 Echocardiogram pending. Possibly some right carotid stenosis on carotid ultrasound which does not correlate to this current acute left MCA CVA 06/29: Afebrile. More arousable today. Spontaneously moving left upper extremity. Opens eyes to voice. Not following commands. Tolerating tube feeds at goal. 06/30: Resting in bed in no acute distress. More arousable today. Spontaneously moving left upper extremity. Opens eyes to voice. No bowel movement 07/01: T-max 99.8. Currently 99.3. Opens eyes to voice. Squeezes bilateral hands right greater than left. Not following commands however. Tolerating spontaneous breathing trial 07/02: T-max 100.1. Currently afebrile. Did not tolerate CPAP trial today. Slightly more responsive today briefly follow commands right greater than left. Tolerating tube feeding. 07/03: Tolerating CPAP trial today. T-max 100.1. Currently 98.5. 2 bowel movements. More arousable and alert today 07/04: on PSV 10/5/40%. more awake today. follows commands. 07/05: continues to be more awake and alert, but also continues to fail CPAP trials. becomes tachypneic and distress. Subjective 07/06: Afebrile. Arousable and follows commands. Neurologically stable. Tolerating tube feeding. On PSV trial since 1050 but currently going to back up mode secondary to apnea. 07/07: Will trial SBTs daily, watch for apnea periods. 07/08: Fentanyl off and she is a little more active today. She may be blind. Unable to extubate today. 07/09: Remains intubated off sedation, ischial spontaneously open moves extremities spontaneously but intermittently. Do not follow commands. Too weak to protect airway successfully. Vent day 13 will need trach and PEG, Dr. Nixon agrees. Will discuss with son. 07/10: Patient underwent percutaneous tracheostomy yesterday tolerated well. EVD raised to 20 yesterday tolerating well. GI consulted for PEG placement. Start weaning trials Objective Vital Signs Date Time Temp Pulse Resp B/P (MAP) Pulse Ox O2 Delivery O2 Flow Rate FiO2 07/10/17 08:27 40 07/10/17 08:00 98.6 104 28 165/73 (103) 100 07/09/17 19:00 Mechanical Ventilator Intake and Output 07/10/17 07/10/17 07/11/17 08:00 16:00 00:00 Output Total 887 ml Balance -887 ml Result Diagram: 07/10/17 0320 07/10/17 0320 Imaging Last Impressions Chest X-Ray 07/02/17 06 Signed Impressions: Service Date/Time: Sunday, July 02, 2017 04:23 - CONCLUSION: No significant change Harsha Wen MD Abdomen X-Ray 07/01/17 06 Signed Impressions: Service Date/Time: Saturday, July 01, 2017 04:18 - CONCLUSION: 1. Nonspecific bowel gas pattern without evidence for obstruction or free air. Ivan Bahena MD Carotid Artery Ultrasound 06/27/17 0000 Signed Impressions: Service Date/Time: Tuesday, June 27, 2017 12:59 - CONCLUSION: 1. Moderate diffuse atherosclerotic plaquing at both carotid bifurcations. 2. Mild elevated velocity in the proximal right internal carotid artery. If clinically indicated , recommend CTA of the carotid arteries for further evaluation. 3. No definite high grade or hemodynamically significant stenosis is demonstrated. David Moore MD Brain MRI 06/27/17 0000 Signed Impressions: Service Date/Time: Tuesday, June 27, 2017 09:23 - CONCLUSION: 1. New development of a nonhemorrhagic acute infarct involving the left occipital lobe. 2. Otherwise, the rest of the exam is stable compared to the prior MRI. David Moore MD Head CT 06/26/17 0000 Signed Impressions: Service Date/Time: Monday, June 26, 2017 10:08 - CONCLUSION: 1. Continued evolution of right cerebral hematoma with slightly increasing surrounding edema. 2. No new hemorrhage identified. 3. Continued ventricular dilatation with no further decompression following placement of ventriculostomy. 4. No significant shift of midline structures. Rene Lomeli MD Head Magnetic Resonance Angiography 06/15/17 0000 Signed Impressions: Service Date/Time: Thursday, June 15, 2017 11:52 - CONCLUSION: MRA within normal limits. There is a parenchymal hemorrhage in the posterior right temporal lobe with intraventricular extension. Ivan Bahena MD Objective Remarks General - 77-year-old female, orotracheally intubated HEENT - pupils are equal, about 3 mm bilaterally, neck is supple. Left frontal Russell hole with placement of a ventriculostomy catheter Neck: New trach in place with no significant bleeding CV -RRR. sinus, no JVD. Chest - Equal chest rise. unlabored, clear. Abdomen - soft, nontender, not distended, no guarding. bs active. Extremities -warm, 1+ edema, + peripheral pulses, well perfused. Neuro: Opens eyes, squeezes with bilateral hands unclear whether she is following. Left gaze preference., no facial asymmetry, withdraws briskly to pain and grimaces A/P Problem List: (1) Hemorrhagic stroke ICD Code: I61.9 - Nontraumatic intracerebral hemorrhage, unspecified Status: Acute (2) Hypertensive urgency ICD Code: I16.0 - Hypertensive urgency Status: Acute (3) Encephalopathy, metabolic ICD Code: G93.41 - Metabolic encephalopathy Status: Acute (4) CLAYTON (acute kidney injury) ICD Code: N17.9 - Acute kidney failure, unspecified Status: Acute Assessment and Plan Neuro/Psych: Right posterior temporal/occipital/parietal intra-axial hematoma Left MCA posterior temporal occipital CVA Right complex partial seizure Wernicke aphasia Acute encephalopathy Remains off all continuous sedation Intermittently following commands. Ventric raised to 20 cm water yesterday 132 mL output in 24 hours Ventric clamping and imaging per neurosurgery. Right ventriculostomy placed 06/27 -neurosurgery managing CT brain 06/25 revealed a right occipital parietal intra-axial hematoma with mild surrounding edema. MRI brain revealed a left MCA CVA involving the left posterior temporal occipital region On levetiracetam 500 mg twice daily for seizure. Acetaminophen 650 mg p.o. every 6 hours as needed fever/pain 1 through 10 MRI brain admission revealed right posterior temporal hemorrhage with ventricular extension MRA brain negative for aneurysm Carotid Dopplers with possible right carotid stenosis. Does not explain acute left MCA CVA. ESR, CRP and hypercoagulable workup pending Followed by Dr. Crowell neurology CV: Hypertensive emergency Dyslipidemia Currently on metoprolol 25 mg by mouth twice daily Currently on pravastatin 40 mg daily/on atorvastatin 40 mg daily at home Holding aspirin 81 mg daily in light of acute hemorrhage 06/29 echo - Normal left ventricular size. Mild concentric LVH. The left ventricular systolic function is hyperdynamic with an estimated ejection fraction in the range of 65-70%. Trace TR. The estimated PASP is 43 mmHg. Resp: Acute hypoxic and hypercarbic respiratory failure secondary to aspiration Reintubated secondary to new acute CVA with aspiration, vent day 14. S/p trach Start SBT with TP trial 2-4 hours Ventilator bundle. Albuterol/ipratropium aerosols every 6 hours alternate nebs with albuterol aerosols every 2 hours as needed dyspnea GI: Hypoalbuminemia Constipation Jevity 1.5 at 50 cc an hour at goal, GI consulted for PEG tube placement Famotidine 20 mg twice daily for GI prophylaxis Docusate sodium/senna 1 tablet twice daily for bowel regimen. Continue polyethylene glycol 17 g twice daily, : no indication for kent catheter. Endo: Sliding scale insulin if indicated to maintain euglycemia Renal: Creatinine currently within normal limits Monitor urine output Accurate I's and O's Heme: Normocytic anemia Monitor CBC daily. Follow trend Hypercoagulable workup ID: Serratia plymithica, MSSA and Klebsiella pneumonia Completed cefazolin 2 g IV every 8 hours day #7 -> done Switch to penicillin/tazobactam day #7 -> done Pertinent cultures 06/30 -sputum -Serratia Plymithica/Klebsiella pneumonia 06/29 -blood cultures 2 -no growth 06/18 -staph aureus/Klebsiella pneumonia sputum FEN: Replace electrolytes as clinically indicated MSK: Osteoarthritis/osteoporosis Holding alendronate 70 mg weekly. Resume clinically indicated Access -Utilize peripheral IV. Central line if indicated Prophylaxis -GI -famotidine -DVT -SCD/holding pharmacological prophylaxis in light of cerebral hematoma. Initiate when okay with neurosurgery Overall impression: Stable hemodynamics. Unable to wean off ventilator yet. No reaction to visual threat, concern for blindness. s/p tracheostomy 07/09/17 Hansel Mcleod MD Jul 10, 2017 10:07
--- NOTE | 2017-07-10 10:38 | PD.CONS ---
HPI History of Present Illness This is a 77 year old female who presented with confusion, dehydration, elevated BP and was found to have brain bleed. She is s/p EVD placement, was extubated and then reintubated for AMS/aspiration. She was found to have a new CVA. GI consulted for EGD and PEG tube placement. She is s/p trach. (Bekah Judd) PFSH Past Medical History HLD HTN osteoporosis Past Surgical History unk (Bekah Judd) Coded Allergies: No Known Allergies (Unverified Allergy, Unknown, 07/09/17) Family History unk Social History no etoh tobacco or illicit drug use per EMR (Bekah Judd) Review of Systems unobtainable (Bekah Judd) GI Exam Vitals I&O Vital Signs Date Time Temp Pulse Resp B/P (MAP) Pulse Ox O2 Delivery O2 Flow Rate FiO2 07/10/17 08:27 40 07/10/17 08:15 40 07/10/17 08:00 98.6 104 28 165/73 (103) 100 07/10/17 08:00 104 07/10/17 07:59 100 40 07/10/17 06:00 101 07/10/17 04:00 40 07/10/17 04:00 88 07/10/17 04:00 98.8 88 17 133/69 (90) 100 07/10/17 03:39 99 40 07/10/17 02:00 96 07/10/17 00:20 97 40 07/10/17 00:00 40 07/10/17 00:00 99.4 86 17 129/60 (83) 98 07/10/17 00:00 86 07/09/17 22:00 88 07/09/17 20:25 100 40 07/09/17 20:00 79 07/09/17 20:00 99.9 79 16 166/77 (106) 100 07/09/17 20:00 40 07/09/17 19:00 100 Mechanical Ventilator 40 07/09/17 18:00 77 07/09/17 16:41 100 40 07/09/17 16:00 99.1 77 23 150/72 (98) 100 07/09/17 16:00 79 07/09/17 16:00 100 07/09/17 16:00 97 100 07/09/17 15:47 70 128/60 07/09/17 14:22 100 40 07/09/17 14:00 100 07/09/17 14:00 74 07/09/17 12:00 74 07/09/17 12:00 99.3 75 17 155/71 (99) 100 07/09/17 12:00 40 07/09/17 11:47 100 40 I/O 07/09/17 07/09/17 07/09/17 07/10/17 07/10/17 07/10/17 07:00 15:00 23:00 07:00 15:00 23:00 Intake Total 605 ml 365 ml Output Total 690 ml 720 ml 887 ml Balance -85 ml -355 ml -887 ml IV Total 105 ml Tube Feeding 545 ml 200 ml Other 60 ml 60 ml Output Urine Total 600 ml 650 ml 825 ml Drainage Total 90 ml 70 ml 62 ml # Bowel Movements 1 1 Imaging Last Impressions Chest X-Ray 07/09/17 0000 Signed Impressions: Service Date/Time: Sunday, July 09, 2017 16:34 - CONCLUSION: Trach tube in good position without pneumothorax. Seun Shirley MD FACR Abdomen X-Ray 07/01/17 0600 Signed Impressions: Service Date/Time: Saturday, July 01, 2017 04:18 - CONCLUSION: 1. Nonspecific bowel gas pattern without evidence for obstruction or free air. Ivan Bahena MD Carotid Artery Ultrasound 06/27/17 0000 Signed Impressions: Service Date/Time: Tuesday, June 27, 2017 12:59 - CONCLUSION: 1. Moderate diffuse atherosclerotic plaquing at both carotid bifurcations. 2. Mild elevated velocity in the proximal right internal carotid artery. If clinically indicated , recommend CTA of the carotid arteries for further evaluation. 3. No definite high grade or hemodynamically significant stenosis is demonstrated. David Moore MD Brain MRI 06/27/17 0000 Signed Impressions: Service Date/Time: Tuesday, June 27, 2017 09:23 - CONCLUSION: 1. New development of a nonhemorrhagic acute infarct involving the left occipital lobe. 2. Otherwise, the rest of the exam is stable compared to the prior MRI. David Moore MD Head CT 06/26/17 0000 Signed Impressions: Service Date/Time: Monday, June 26, 2017 10:08 - CONCLUSION: 1. Continued evolution of right cerebral hematoma with slightly increasing surrounding edema. 2. No new hemorrhage identified. 3. Continued ventricular dilatation with no further decompression following placement of ventriculostomy. 4. No significant shift of midline structures. Rene Lomeli MD Head Magnetic Resonance Angiography 06/15/17 0000 Signed Impressions: Service Date/Time: Thursday, June 15, 2017 11:52 - CONCLUSION: MRA within normal limits. There is a parenchymal hemorrhage in the posterior right temporal lobe with intraventricular extension. Ivan Bahena MD Laboratory Test 07/10/17 03:20 White Blood Count 10.7 TH/MM3 Red Blood Count 2.78 MIL/MM3 Hemoglobin 8.4 GM/DL Hematocrit 24.6 % Mean Corpuscular Volume 88.7 FL Mean Corpuscular Hemoglobin 30.3 PG Mean Corpuscular Hemoglobin Concent 34.2 % Red Cell Distribution Width 13.9 % Platelet Count 254 TH/MM3 Mean Platelet Volume 8.2 FL Blood Urea Nitrogen 20 MG/DL Creatinine 0.83 MG/DL Random Glucose 100 MG/DL Calcium Level 8.4 MG/DL Sodium Level 136 MEQ/L Potassium Level 3.9 MEQ/L Chloride Level 103 MEQ/L Carbon Dioxide Level 20.5 MEQ/L Anion Gap 13 MEQ/L Estimat Glomerular Filtration Rate 66 ML/MIN Date/Time Source Procedure Growth Status 06/29/17 20:02 Blood Peripheral Aerobic Blood Culture - Final NO GROWTH IN 5 DAYS Complete 06/29/17 20:02 Blood Peripheral Anaerobic Blood Culture - Final NO GROWTH IN 5 DAYS Complete 06/27/17 11:20 Cerebral Spinal Fluid Shunt Fluid Gram Stain - Final Complete 06/27/17 11:20 Cerebral Spinal Fluid Shunt Fluid CSF Culture - Final NO GROWTH IN 72 HRS.--AEROBICALLY OR ... Complete 06/30/17 12:30 Sputum Endotracheal Gram Stain - Final Complete 06/30/17 12:30 Sputum Culture - Final Klebsiella Pneumoniae Serratia Plymuthica Complete Physical Examination HEENT: no jaundice. EVD drain trach CHEST: coarse CARDIAC: RRR ABDOMEN: Soft, nondistended, no hepatosplenomegaly;BS+ EXTREMITIES: No clubbing, cyanosis, no edema SKIN: Normal; no rash; no jaundice. PAYROLL EXAMINER: unresponsive (BintaBekah poe Assessment and Plan Plan ASSESSMENT - dysphagia, no PO intake - GI consulted for peg tube placement. she is s/p trach. 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
[2017-07-10] MEDS ORDERED: PROPOFOL 200 MG/20 ML AMP IV ONE (12:00)
[2017-07-10] MEDS ORDERED: PHENYLEPH/NS 1000 MCG/10 ML SYR IV ONE (12:00)
--- NOTE | 2017-07-10 15:06 | PD.PROCEDR ---
GI Procedure PROCEDURE PERFORMED Upper endoscopy, biopsy, PEG tube placement INDICATION FOR PROCEDURE Dysphagia, patient is intubated PROCEDURE: The procedure, risks and benefits were discussed with Ms. Patrick and informed consent was obtained. Anesthesia sedated her with Diprivan. She was placed in the left lateral decubitus position. EGD: The Pentax videoscope was introduced through the oropharynx and advanced to the second portion of the duodenum under direct visualization. Retroflexion was performed in the stomach. The area for the PEG tube was identified with illumination and indentation, the area was sterilized with Betadine, injected with lidocaine, a needle was passed through the abdominal wall with retrieval of a wire by snare then a small incision was done and 20 [place] Microvasive PEG tube was placed with a pull technique without any immediate complication, biopsy from the antrum from gastritis and gastric ulceration, visualization of the PEG tube was confirmed at the end of the case in the stomach ESTIMATED BLOOD LOSS: None SPECIMENS REMOVED: Antrum for gastritis COMPLICATIONS: None IMPRESSION: Significant gastritis with ulcerations in the antrum biopsy was done 20 [place] Microvasive PEG tube was placed without any immediate complication Antibiotic was given to the patient during the procedure PLAN: Await biopsy results Start Protonix 20 mg daily No NSAIDs Nothing by mouth for 8 hours then may start PEG tube feeding Monitor H&H Edgar Blandon MD Jul 10, 2017 15:06
--- NOTE | 2017-07-10 16:01 | HHI.NSPN ---
Note Status Status: Progress Note Interval History Interval History 77 year old female with large hemorrhage stroke with hydrocephalus, worsening mental status, patient became severely obtunded difficult to arouse, she underwent placement of ventriculostomy drain 06/15/1706/16: ventriculostomy draining well, intubated, opening eyes and moving right side spontaneously. 06/18: ventriculostomy draining well, remains intubated, opens eyes, tracks, moves right side, stable left paresis 06/19: ventriculostomy draining well, CSF still bloody, dark red. opens eyes and moves right side spontaneously 06/20: ventriculostomy draining well, still gross bloody CSF, intubated, but opens eyes and gave thumbs up to command 06/25: Awake, ventriculostomy draining, drain raised to 15 cm of water over the weekend with stable ICPs. 06/26: EVD raised to 20 cm H20 yesterday, ICPs remains stable overnight, however appears more lethargic today, minimally opens eyes but falls back asleep. 06/27: MRI Brain this morning with new acute nonhemorrhagic left occipital infarct. 06/28: left ventriculostomy draining well, intubated and sedated. 07/02: ventriculostomy draining well, remains intubated. ICPs low. 07/03: ICPs stable overnight, intubated, no sedatives, awake, following simple commands. ventriculostomy draining well. 07/04: remains awake, alert, follows commands. still intubated. ventriculostomy draining well, ICPs controlled overnight. 07/05: continues to be intubated, mildly sedated due to vent restlessness. ventriculostomy continues to drain well, ICPs stable. 07/06: remains intubated, CPAP trials continues. no change in neuro exam. EVD draining well. 07/09: ventriculostomy drain increased to 15 cm H20, awake, ICPs stable. 07/10 Status post tracheostomy. Open eyes. Ventriculostomy working well. Clamped at 20cm H20 Labs, Micro, & Vital Signs Results Date Time Temp Pulse Resp B/P (MAP) Pulse Ox O2 Delivery O2 Flow Rate FiO2 07/10/17 14:00 40 07/10/17 13:48 99 40 07/10/17 12:00 94 07/10/17 12:00 97.2 94 20 132/79 (96) 98 07/10/17 11:37 98 T-Piece 6.00 40 07/10/17 11:36 99 T-piece 6.00 40 07/10/17 11:14 100 35 07/10/17 11:14 35 07/10/17 08:27 40 07/10/17 08:15 40 07/10/17 08:00 98.6 104 28 165/73 (103) 100 07/10/17 08:00 104 07/10/17 07:59 100 40 07/10/17 06:00 101 07/10/17 04:00 40 07/10/17 04:00 88 07/10/17 04:00 98.8 88 17 133/69 (90) 100 07/10/17 03:39 99 40 07/10/17 02:00 96 07/10/17 00:20 97 40 07/10/17 00:00 40 07/10/17 00:00 99.4 86 17 129/60 (83) 98 07/10/17 00:00 86 07/09/17 22:00 88 07/09/17 20:25 100 40 07/09/17 20:00 79 07/09/17 20:00 99.9 79 16 166/77 (106) 100 07/09/17 20:00 40 07/09/17 19:00 100 Mechanical Ventilator 40 07/09/17 18:00 77 07/09/17 16:41 100 40 07/11/17 07:00 Intake Total 100 ml Balance 100 ml Constitutional Vital Signs Date Time Temp Pulse Resp B/P (MAP) Pulse Ox O2 Delivery O2 Flow Rate FiO2 07/10/17 14:00 40 07/10/17 13:48 99 40 07/10/17 12:00 94 07/10/17 12:00 97.2 94 20 132/79 (96) 98 07/10/17 11:37 98 T-Piece 6.00 40 07/10/17 11:36 99 T-piece 6.00 40 07/10/17 11:14 100 35 07/10/17 11:14 35 07/10/17 08:27 40 07/10/17 08:15 40 07/10/17 08:00 98.6 104 28 165/73 (103) 100 07/10/17 08:00 104 07/10/17 07:59 100 40 07/10/17 06:00 101 07/10/17 04:00 40 07/10/17 04:00 88 07/10/17 04:00 98.8 88 17 133/69 (90) 100 07/10/17 03:39 99 40 07/10/17 02:00 96 07/10/17 00:20 97 40 07/10/17 00:00 40 07/10/17 00:00 99.4 86 17 129/60 (83) 98 07/10/17 00:00 86 07/09/17 22:00 88 07/09/17 20:25 100 40 07/09/17 20:00 79 07/09/17 20:00 99.9 79 16 166/77 (106) 100 07/09/17 20:00 40 07/09/17 19:00 100 Mechanical Ventilator 40 07/09/17 18:00 77 07/09/17 16:41 100 40 07/11/17 07:00 Intake Total 100 ml Balance 100 ml Physical Exam Ms. Patrick is intubated. Awake, alert HEENT: Left ventriculostomy at 20 cm H20 draining blood tinged CSF. ICPs=3 clamped. Site without signs of infection. Nonicteric sclera Cranial Nerves: Pupils equal, round reactive. Gross eoms intact, tracking. Cervical Spine: soft, supple Motor: moves extremities spontaneously Sensory: withdraws to pain stimuli Heart: regular rate rhythm Lungs: clear Skin. warm and dry Medications Current Medications Current Medications Sodium Chloride (NS Flush) 2 ml UNSCH PRN IV FLUSH FLUSH AFTER USING IV ACCESS Last administered on 07/02/17at 10:18; Start 06/15/17 at 05:15 Sodium Chloride 500 ml @ 500 mls/hr BOLUS ONCE IV ; Start 06/15/17 at 06:00; Stop 06/15/17 at 06:59; Status DC Nicardipine HCl 25 mg/Sodium Chloride 250 ml @ 50 mls/hr TITRATE PRN IV Blood pressure management Last administered on 06/19/17at 06:43; Start 06/15/17 at 06: 15; Stop 06/23/17 at 17:33; Status DC Pravastatin Sodium (Pravachol) 80 mg HS PO Last administered on 06/17/17at 23:23 ; Start 06/15/17 at 21:00; Stop 06/18/17 at 09:30; Status DC Levetriacetam 100 ml @ 400 mls/hr BOLUS ONCE IV Last administered on at 09:43; Start 06/15/17 at 06:30; Stop 06/15/17 at 06:44; Status DC Sodium Chloride 1,000 ml @ 100 mls/hr Q10H IV Last administered on 06/17/17at 07:29; Start 06/15/17 at 06:17; Stop 06/17/17 at 12:42; Status DC Acetaminophen (Tylenol) 650 mg Q6H PRN PO PAIN 1-10 AND/OR FEVER >101F Last administered on 06/23/17at 20:18; Start 06/15/17 at 06:30; Stop 07/06/17 at 13:27 ; Status DC Morphine Sulfate (Morphine Inj) 2 mg Q2H PRN IV PUSH PAIN SCALE 6 TO 10 Last administered on 06/19/17at 08:29; Start 06/15/17 at 06:30; Stop 06/20/17 at 08:25 ; Status DC Famotidine (Pepcid Inj) 10 mg Q12HR IV PUSH Last administered on 06/25/17at 08: 45; Start 06/15/17 at 09:00; Stop 06/25/17 at 16:28; Status DC Ondansetron HCl (Zofran Inj) 4 mg Q6H PRN IV PUSH NAUSEA OR VOMITING; Start at 06:30 Albuterol/ Ipratropium (Duoneb Neb) 1 ampule Q4HR NEB PRN INH WHEEZING; Start 06/15/17 at 06:30; Stop 06/27/17 at 09:15; Status DC Miscellaneous Information 1 [id number] XX Last administered on 06/15/17at 06:30; Start 06/15/17 at 06:30 Chlorhexidine Gluconate (Chlorhexidine 2% Cloth) Taper DAILY@04 TOP Last administered on 06/20/17at 04:00; Start 06/16/17 at 04:00; Stop 06/12/18 at 03:59 Chlorhexidine Gluconate (Chlorhexidine 2% Cloth) 3 pack UNSCH PRN TOP HYGIENIC CARE; Start 06/15/17 at 06:30 Senna/Docusate Sodium ([place]-Colace) 1 tab BID PO Last administered on at 08:00; Start 06/15/17 at 09:00; Stop 06/29/17 at 15:16; Status DC Magnesium Hydroxide (Milk Of Magnesia Liq) 30 ml Q12H PRN PO Mild constipation Last administered on 06/22/17at 20:58; Start 06/15/17 at 06:30 Sennosides (Senokot) 17.2 mg Q12H PRN PO Moderate constipation; Start 06/15/17 at 06:30 Bisacodyl (Dulcolax Supp) 10 mg DAILY PRN RECTAL SEVERE CONSITIPATION; Start at 06:30 Lactulose (Lactulose Liq) 30 ml DAILY PRN PO SEVERE CONSITIPATION Last administered on 06/22/17at 20:58; Start 06/15/17 at 06:30 Rocuronium [place] (Zemuron Inj) 100 mg BOLUS ONCE IV Last administered on at 14:34; Start 06/15/17 at 14:00; Stop 06/15/17 at 14:01; Status DC Midazolam HCl (Versed Inj) 5 mg ONCE ONCE IV PUSH Last administered on at 14:35; Start 06/15/17 at 14:00; Stop 06/15/17 at 14:01; Status DC Chlorhexidine Gluconate (Peridex 0.12% Liq) 15 ml BID@08,20 MT Last administered on 07/10/17at 08:00; Start 06/15/17 at 20:00 Propofol 100 ml @ 0 mls/hr TITRATE PRN IV SEDATION; Start 06/15/17 at 14:00; Status UNV Midazolam HCl (Versed Inj) 5 mg STK-MED ONCE .ROUTE ; Start 06/15/17 at 14:07; Stop 06/15/17 at 14:08; Status DC Rocuronium [place] (Zemuron Inj) 50 mg STK-MED ONCE .ROUTE ; Start 06/15/17 at 14:07; Stop 06/15/17 at 14:08; Status DC Propofol 100 ml @ 1.941 mls/ hr TITRATE PRN IV SEDATION Last administered on at 14:41; Start 06/15/17 at 14:45; Stop 06/21/17 at 14:09; Status DC Miscellaneous Information (RASS Change Order) 1 ea ONCE ONCE XX Last administered on 06/15/17at 14:45; Start 06/15/17 at 14:45; Stop 06/15/17 at 14:46 ; Status DC Norepinephrine Bitartrate 4 mg/ Sodium Chloride 250 ml @ 7.5 mls/hr TITRATE PRN IV Maintain MAP > 70 mmHg; Start 06/15/17 at 19:45; Stop 06/15/17 at 21:37; Status DC Norepinephrine Bitartrate 4 mg/ Sodium Chloride 250 ml @ 7.5 mls/hr TITRATE PRN IV Maintain MAP > 70 mmHg Last administered on 06/15/17at 19:00; Start at 21:45; Stop 06/20/17 at 08:11; Status DC Levetriacetam (Keppra) 500 mg Q12HR PO Last administered on 07/09/17at 09:59; Start 06/17/17 at 11:30; Stop 07/09/17 at 21:24; Status DC Potassium Chloride 20 meq/ Lactated Ringer's 1,010 ml @ 42 mls/hr Q24H IV ; Start 06/17/17 at 12:45; Stop 06/17/17 at 13:02; Status DC Potassium Chloride 10 meq/ Lactated Ringer's 505 ml @ 42 mls/hr Q12H2M IV Last administered on 06/19/17at 22:32; Start 06/17/17 at 13:15; Stop 06/20/17 at 08:13; Status DC Pravastatin Sodium (Pravachol) 40 mg HS PO Last administered on 07/08/17at 21:15 ; Start 06/18/17 at 21:00 Potassium Phosphate 15 mmol/ Sodium Chloride 155 ml @ 38.75 mls/ hr ONCE ONCE IV Last administered on 06/19/17at 08:50; Start 06/19/17 at 08:00; Stop at 11:59; Status DC Metoprolol Tartrate (Lopressor) 25 mg Q12HR PO Last administered on 07/09/17at 10 :00; Start 06/19/17 at 09:00 Pharmacy Profile Note 0 ml @ 0 mls/hr UNSCH OTHER ; Start 06/20/17 at 08:15; Stop 06/21/17 at 14:09; Status DC Albuterol/ Ipratropium (Duoneb Neb) 1 ampule Q6HR NEB NEB Last administered on 06/24/17at 07:16; Start 06/20/17 at 10:00; Stop 06/24/17 at 09:59; Status DC Vancomycin HCl 1250 mg/Sodium Chloride 262.5 ml @ 262.5 mls/ hr ONCE ONCE IV Last administered on 06/20/17at 13:29; Start 06/20/17 at 12:00; Stop 06/20/17 at 12:59; Status DC Hydralazine HCl (Apresoline Inj) 10 mg Q4H PRN IV PUSH SBP greater than 160 Last administered on 07/09/17at 23:45; Start 06/20/17 at 12:30 Potassium Phosphate 15 mmol/ Sodium Chloride 155 ml @ 38.75 mls/ hr ONCE ONCE IV Last administered on 06/20/17at 17:05; Start 06/20/17 at 13:45; Stop at 17:44; Status DC Furosemide (Lasix Inj) 40 mg ONCE ONCE IV PUSH Last administered on 06/21/17at 08:53; Start 06/21/17 at 08:30; Stop 06/21/17 at 08:31; Status DC Cefazolin Sodium/ Dextrose 50 ml @ 100 mls/hr Q8H IV Last administered on 06/24at 15:02; Start 06/21/17 at 15:00; Stop 06/24/17 at 21:47; Status DC Cefazolin Sodium 2000 mg/Sodium Chloride 120 ml @ 240 mls/hr Q8H IV Last administered on 06/30/17at 06:06; Start 06/24/17 at 23:00; Stop 06/30/17 at 10:37 ; Status DC Famotidine (Pepcid) 10 mg BID PO Last administered on 07/03/17at 08:48; Start at 21:00; Stop 07/03/17 at 20:13; Status DC Chlorhexidine Gluconate (Hibiclens 4% Top Soln) 1 applic HS TOP Last administered on 06/27/17at 05:56; Start 06/26/17 at 21:00; Stop 06/28/17 at 21:01 ; Status DC Acetaminophen 100 ml @ As Directed STK-MED ONCE IV ; Start 06/27/17 at 07:04; Stop 06/27/17 at 07:05; Status DC Artificial Tears (Lacrilube Opht Oint) 3.5 applic STK-MED ONCE .ROUTE ; Start at 07:05; Stop 06/27/17 at 07:06; Status DC Lidocaine/ Epinephrine (Xylocaine-Epi 1%-1:100,000 Inj) 30 ml STK-MED ONCE .ROUTE ; Start 06/27/17 at 07:32; Stop 06/27/17 at 07:33; Status DC Thrombin (Thrombin Top Soln) 10,000 units STK-MED ONCE .ROUTE ; Start 06/27/17 at 07:32; Stop 06/27/17 at 07:33; Status DC Gelatin (Gelfoam 100 Top) 1 foam STK-MED ONCE .ROUTE ; Start 06/27/17 at 07:32; Stop 06/27/17 at 07:33; Status DC Bacitracin (Baciguent Oint) 15 applic STK-MED ONCE .ROUTE ; Start 06/27/17 at 07 :32; Stop 06/27/17 at 07:33; Status DC Gentamicin Sulfate (Gentamicin Inj) 240 mg STK-MED ONCE .ROUTE ; Start 06/27/17 at 07:33; Stop 06/27/17 at 07:34; Status DC Albuterol Sulfate (Albuterol Neb) 2.5 mg Q2HR NEB PRN NEB dyspnea; Start at 09:15 Labetalol HCl (Trandate Inj) 10 mg Q1HR PRN IV PUSH SBP>160, DBP>90, HR>65 Last administered on 07/10/17at 08:30; Start 06/27/17 at 09:15 Polyethylene Glycol (Miralax) 17 gm ONCE ONCE PO ; Start 06/27/17 at 09:15; Stop 06/27/17 at 09:19; Status DC Polyethylene Glycol (Miralax) 17 gm DAILY PO Last administered on 06/28/17at 08: 31; Start 06/28/17 at 09:00; Stop 06/28/17 at 15:18; Status DC Glycerin (Glycerin Adult Supp) 2 gm ONCE ONCE RECTAL ; Start 06/27/17 at 09:15 ; Stop 06/27/17 at 09:20; Status DC Sodium Chloride (Sodium Chloride) 1 gm ONCE ONCE PO ; Start 06/27/17 at 09:45; Stop 06/27/17 at 10:35; Status DC Propofol (Diprivan 500 Mg/ 50 ml Inj) 100 mg ONCE ONCE IV Last administered on 06/27/17at 11:10; Start 06/27/17 at 11:00; Stop 06/27/17 at 11:01; Status DC Chlorhexidine Gluconate (Peridex 0.12% Liq) 15 ml BID@08,20 MT ; Start 06/27/17 at 20:00; Status Cancel Propofol 100 ml @ 2.073 mls/ hr TITRATE PRN IV SEDATION Last administered on at 13:54; Start 06/27/17 at 11:00 Fentanyl Citrate 250 ml @ 5 mls/hr TITRATE PRN IV SEDATION Last administered on 07/06/17at 04:21; Start 06/27/17 at 11:00 Lidocaine HCl (Xylocaine 2% Inj) 100 mg ONCE ONCE IV PUSH Last administered on 06/27/17at 13:34; Start 06/27/17 at 11:00; Stop 06/27/17 at 11:01; Status DC Etomidate (Amidate Inj) 40 mg ONCE ONCE IV PUSH Last administered on at 13:34; Start 06/27/17 at 11:00; Stop 06/27/17 at 11:01; Status DC Rocuronium [place] (Zemuron Inj) 100 mg BOLUS ONCE IV Last administered on at 13:35; Start 06/27/17 at 11:30; Stop 06/27/17 at 11:31; Status DC Lidocaine/ Epinephrine (Xylocaine-Epi 1%-1:100,000 Inj) 30 ml STK-MED ONCE .ROUTE ; Start 06/27/17 at 10:50; Stop 06/27/17 at 10:51; Status DC Rocuronium [place] (Zemuron Inj) 100 mg STK-MED ONCE .ROUTE ; Start 06/27/17 at 10:51; Stop 06/27/17 at 10:52; Status DC Artificial Tears (Tears Naturale Opth Soln) 1 drop Q8HR EACH EYE Last administered on 07/10/17 06:28; Start 06/28/17 at 17:00 Polyethylene Glycol (Miralax) 17 gm BID PO Last administered on 07/09/17 09:59 ; Start 06/28/17 at 21:00 Lactulose (Lactulose Liq) 30 ml QID PO Last administered on 07/01/17 13:08; Start 06/28/17 at 18:00; Stop 07/01/17 at 14:12; Status DC Mineral Oil (Kondremul Liq) 30 ml ONCE ONCE PO Last administered on 06/28/17 16:54; Start 06/28/17 at 17:00; Stop 06/28/17 at 17:01; Status DC Glycerin (Glycerin Adult Supp) 2 gm ONCE ONCE RECTAL Last administered on 06/28 16:54; Start 06/28/17 at 17:00; Stop 06/28/17 at 17:01; Status DC Methylnaltrexone [place] (Relistor Inj) 12 mg ONCE ONCE SQ Last administered on 06/28/17 17:20; Start 06/28/17 at 17:00; Stop 06/28/17 at 17:01; Status DC Metoclopramide HCl (Reglan Inj) 5 mg Q8HR IV PUSH Last administered on 14:10; Start 06/29/17 at 22:00 Methylnaltrexone [place] (Relistor Inj) 12 mg ONCE ONCE SQ Last administered on 06/29/17 17:14; Start 06/29/17 at 15:15; Stop 06/29/17 at 15:30; Status DC Docusate Sodium (Colace Liq) 100 mg Q12HR PO Last administered on 07/09/17 09: 59; Start 06/29/17 at 21:00 Sennosides (Senna Liq) 8.8 mg BID PO Last administered on 07/09/17 09:59; Start 06/29/17 at 21:00 Mineral Oil (Kondremul Liq) 30 ml ONCE ONCE PO Last administered on 06/29/17at 15:15; Start 06/29/17 at 15:15; Stop 06/29/17 at 15:30; Status DC Glycerin (Glycerin Adult Supp) 2 gm ONCE ONCE RECTAL Last administered on 06/29at 15:15; Start 06/29/17 at 15:15; Stop 06/29/17 at 15:30; Status DC Magnesium Citrate (Citroma Liq) 300 ml ONCE ONCE PO ; Start 06/30/17 at 10:45; Stop 06/30/17 at 10:49; Status DC Mineral Oil (Fleet Mineral Oil Enema) 118 ml ONCE ONCE RECTAL ; Start 06/30/17 at 10:45; Stop 06/30/17 at 10:49; Status DC Mineral Oil (Kondremul Liq) 30 ml ONCE ONCE PO ; Start 06/30/17 at 10:45; Stop 06/30/17 at 10:49; Status DC Sodium Phosphate 30 mmol/Sodium Chloride 260 ml @ 43.333 mls/ hr ONCE ONCE IV ; Start 06/30/17 at 12:00; Stop 06/30/17 at 17:59; Status DC Magnesium Sulfate/ Dextrose 100 ml @ 100 mls/hr Q1H IV Last administered on at 11:45; Start 06/30/17 at 10:45; Stop 06/30/17 at 12:44; Status DC Piperacillin Sod/ Tazobactam Sod 100 ml @ 200 mls/hr Q6H IV Last administered on 07/07/17at 09:59; Start 06/30/17 at 11:00; Stop 07/07/17 at 11:00; Status DC Albuterol/ Ipratropium (Duoneb Neb) 1 ampule Q6HR WHILE AWAKE NEB NEB Last administered on 07/05/17at 13:13; Start 07/01/17 at 20:00; Stop 07/05/17 at 14:07; Status DC Potassium Chloride (KCl Powder) 20 meq ONCE ONCE PO ; Start 07/02/17 at 22:15; Stop 07/02/17 at 22:16; Status DC Famotidine (Pepcid) 20 mg BID PO Last administered on 07/09/17at 09:59; Start 07/03/17 at 21:00; Stop 07/10/17 at 14:29; Status DC Folic Acid (Folate) 1 mg DAILY PO Last administered on 07/09/17at 09:59; Start at 09:15 Albuterol/ Ipratropium (Duoneb Neb) 1 ampule Q6HR WHILE AWAKE NEB NEB Last administered on 07/06/17at 13:06; Start 07/05/17 at 14:00; Stop 07/06/17 at 13:27; Status DC Albuterol/ Ipratropium (Duoneb Neb) 1 ampule Q6HR ALT NEB NEB ; Start 07/06/17 at 19:00; Stop 07/06/17 at 19:00; Status DC Acetaminophen (Tylenol 650 Mg/ 20 ml Liq) 650 mg Q6H PRN PO fever Last administered on 07/08/17at 15:09; Start 07/06/17 at 13:30 Albuterol/ Ipratropium (Duoneb Neb) 1 ampule Q6HR NEB NEB Last administered on 07/10/17at 08:06; Start 07/06/17 at 22:00 Midazolam HCl (Versed Inj) 5 mg ONCE ONCE IV PUSH Last administered on at 14:33; Start 07/09/17 at 14:00; Stop 07/09/17 at 14:01; Status DC Rocuronium [place] (Zemuron Inj) 50 mg BOLUS ONCE IV Last administered on at 14:30; Start 07/09/17 at 14:00; Stop 07/09/17 at 14:01; Status DC Fentanyl Citrate (fentaNYL INJ) 200 mcg ONCE ONCE IV PUSH Last administered on 07/09/17at 14:31; Start 07/09/17 at 14:00; Stop 07/09/17 at 14:01; Status DC Norepinephrine Bitartrate 250 ml @ As Directed STK-MED ONCE IV ; Start 07/09/17 at 15:47; Stop 07/09/17 at 15:48; Status DC Levetriacetam 500 mg/Sodium Chloride 105 ml @ 420 mls/hr Q12HR IV Last administered on 07/10/17at 08:30; Start 07/09/17 at 21:30 Cefazolin Sodium 1000 mg/Sodium Chloride 100 ml @ 200 mls/hr [employer] IV Last administered on 07/10/17at 14:17; Start 07/10/17 at 10:30; Stop 07/13/17 at 10:29 Famotidine (Pepcid) 10 mg BID PO ; Start 07/10/17 at 21:00 Pantoprazole Sodium (Protonix) 20 mg DAILY PO ; Start 07/10/17 at 15:15; Status UNV Attending Statement Neuro. Continue neuro checks. [place]allinging ventriculostomy, draining less CSF while monitoring ICP. Will clamp ventriculostomy. WIll obtain follow up CT in morning 07/11 Pulmonary. Continue mechanical ventilation and aggressive pulmonary toilette, nasotracheal suction, and breathing treatments with nebulizers. She is not weaning from the vent. She will need a tracheostomy Daily PT and OT Renal. Continue to monitor closely urine output, BUN and creatinine Endocrine. Continue to Monitor serial Acu checks and SSI as needed in detail ID continue to monitor for signs of infection Continue Protonix for stress ulcer prophylaxis Continue Nickolas hose and SCD's for DVT prophylaxis Further recommendations will be provided depending on the patient's clinical evaluation and follow up studies. Andre Nixon MD Jul 10, 2017 16:01
[2017-07-10] MEDS: PANTOPRAZOLE SOD 20 MG DELAYED RELEASE TAB PO SCH (17:00)
[2017-07-10] MEDS: hydrALAZINE HCL 20 MG/ML VIAL IV PUSH PRN (20:01)
[2017-07-10] MEDS ORDERED: FAMOTIDINE 20 MG TAB PO SCH (21:00)
[2017-07-10] MEDS: PRAVASTATIN SOD 40 MG TAB PO SCH (22:53)
[2017-07-11] VITALS (15 sets, daily range): BP systolic 115–152; BP diastolic 57–84; PULSE 64–83; RESP 12–24; TEMP 97.9–98.7; O2SAT 98–100
[2017-07-11] MEDS: CHLORHEXIDINE GLUCONATE 2 % 1 PACK (2 CLOTHS) TOP SCH (04:00)
[2017-07-11 04:04] LABS: HEMATOCRIT 24.2 % (35.0-46.0); HEMOGLOBIN 8.4 GM/DL (11.6-15.3); MEAN CELL VOLUME 89.7 FL (80.0-100.0); MEAN CORPUSCULAR HEMOGLOBIN 31.1 PG (27.0-34.0); MEAN CORPUSCULAR HGB CONC 34.7 % (32.0-36.0); MEAN PLATELET VOLUME 8.1 FL (7.0-11.0); PLATELET COUNT 256 TH/MM3 (150-450); RED BLOOD COUNT 2.69 MIL/MM3 (4.00-5.30); RED CELL DISTRIBUTION WIDTH 14.4 % (11.6-17.2); WHITE BLOOD COUNT 10.4 TH/MM3 (4.0-11.0)
[2017-07-11 04:20] LABS: BICARBONATE 24.8 MEQ/L (21.0-32.0); CALCIUM 8.4 MG/DL (8.5-10.1); CREATININE 0.69 MG/DL (0.50-1.00)
[2017-07-11] MEDS: ARTIFICIAL TEARS OPTH SOLN 15 ML BTL EACH EYE SCH ×3 (04:39→23:47)
[2017-07-11] MEDS: METOCLOPRAMIDE HCL 10 MG/2 ML VIAL IV PUSH SCH ×3 (04:45→23:47)
--- NOTE | 2017-07-11 05:40 | RADRPT ---
EXAM DATE/TIME: 07/11/2017 05:19 [facility] COMPARISON: CT BRAIN W/O CONTRAST, June 26, 2017, 10:08. INDICATIONS : Subarachnoin hemorrhage. RADIATION DOSE: 63.64 CTDIvol (mGy) MEDICAL HISTORY : Cardiovascular disease. Stroke Hypertension. SURGICAL HISTORY : None. ENCOUNTER: Initial ACUITY: 1 day PAIN SCALE: Non-responsive LOCATION: cranial TECHNIQUE: Multiple contiguous axial images were obtained of the head. Using automated exposure control and adj ustment of the mA and/or kV according to patient size, radiation dose was kept as low as reasonably a chievable to obtain optimal diagnostic quality images. DICOM format image data is available electro nically for review and comparison. FINDINGS: Evolving right occipital hemorrhage with adjacent vasogenic edema. Interventricular hemorrhage. Left frontal ventriculostomy catheter noted with tip in the frontal horn left lateral ventricle. Ventricle s remain mildly prominent. No significant midline shift. The ventricles are normal for age. Calvarium is intact. CONCLUSION: 1. Continued evolution of right occipital hemorrhage. 2. Intraventricular hemorrhage. Eldon Duggan MD on July 11, 2017 at 5:36 Board Certified Radiologist. This report was verified electronically.
[2017-07-11] MEDS: CHLORHEXIDINE 0.12% (ORAL KIT) 15 ML CUP MT SCH ×2 (08:00→19:49)
[2017-07-11] MEDS: SENNOSIDES SYRUP 8.8 MG/5 ML CUP PO SCH ×2 (08:35→19:51)
[2017-07-11] MEDS: PANTOPRAZOLE SOD 20 MG DELAYED RELEASE TAB PO SCH (08:35)
[2017-07-11] MEDS: levETIRAcetam 500 MG/NS 100 ML IV SCH ×2 (08:35)
[2017-07-11] MEDS: METOPROLOL TARTRATE 25 MG TAB PO SCH ×2 (08:35→19:49)
[2017-07-11] MEDS: DOCUSATE SODIUM 100 MG/10 ML UDC PO SCH ×2 (08:35→19:50)
[2017-07-11] MEDS: POLYETHYLENE GLYCOL 17 GM PKG PO SCH ×2 (08:35→19:51)
[2017-07-11] MEDS: FOLIC ACID 1 MG TAB PO SCH (08:35)
--- NOTE | 2017-07-11 12:54 | HHI.GIFU ---
Subjective Remarks sitting up in bed. nonverbal. s/p trach and peg (Bekah Judd [employer]) Objective Vitals I&O Vital Signs Date Time Temp Pulse Resp B/P (MAP) Pulse Ox O2 Delivery O2 Flow Rate FiO2 07/11/17 12:00 98.1 74 22 121/84 (96) 100 07/11/17 12:00 74 07/11/17 11:47 99 T-piece 6.00 28 07/11/17 08:00 75 07/11/17 08:00 100 T-Piece 6.00 40 07/11/17 08:00 98.3 75 12 152/67 (95) 100 07/11/17 07:47 100 T-piece 6.00 40 07/11/17 07:38 100 35 07/11/17 06:00 68 07/11/17 04:00 98.2 65 19 115/57 (76) 100 07/11/17 04:00 40 07/11/17 04:00 65 07/11/17 03:19 100 40 07/11/17 02:00 70 07/11/17 00:00 98.4 83 18 116/58 (77) 98 07/11/17 00:00 83 07/11/17 00:00 40 07/10/17 23:22 98 40 07/10/17 22:00 101 07/10/17 20:29 100 40 07/10/17 20:00 40 07/10/17 20:00 98.4 85 18 170/78 (108) 100 07/10/17 20:00 85 07/10/17 19:00 100 Mechanical Ventilator 40 07/10/17 17:45 40 07/10/17 17:40 40 07/10/17 16:00 83 07/10/17 16:00 97.9 83 16 134/68 (90) 100 07/10/17 14:00 40 07/10/17 13:48 99 40 I/O 07/10/17 07/10/17 07/10/17 07/11/17 07/11/17 07/11/17 07:00 15:00 23:00 07:00 15:00 23:00 Intake Total 300 ml 100 ml Output Total 887 ml 425 ml 251 ml Balance -887 ml 300 ml -425 ml -251 ml 100 ml IV Total 200 ml 100 ml Other 100 ml Output Urine Total 825 ml 400 ml 250 ml Stool Total 1 ml Drainage Total 62 ml 25 ml 0 ml # Bowel Movements 1 Laboratory Laboratory Tests Test 07/11/17 03:45 White Blood Count 10.4 Red Blood Count 2.69 Hemoglobin 8.4 Hematocrit 24.2 Mean Corpuscular Volume 89.7 Mean Corpuscular Hemoglobin 31.1 Mean Corpuscular Hemoglobin Concent 34.7 Red Cell Distribution Width 14.4 Platelet Count 256 Mean Platelet Volume 8.1 Blood Urea Nitrogen 21 Creatinine 0.69 Random Glucose 105 Calcium Level 8.4 Sodium Level 137 Potassium Level 3.7 Chloride Level 104 Carbon Dioxide Level 24.8 Anion Gap 8 Estimat Glomerular Filtration Rate 82 Date/Time Source Procedure Growth Status 06/29/17 20:02 Blood Peripheral Aerobic Blood Culture - Final NO GROWTH IN 5 DAYS Complete 06/29/17 20:02 Blood Peripheral Anaerobic Blood Culture - Final NO GROWTH IN 5 DAYS Complete 06/27/17 11:20 Cerebral Spinal Fluid Shunt Fluid Gram Stain - Final Complete 06/27/17 11:20 Cerebral Spinal Fluid Shunt Fluid CSF Culture - Final NO GROWTH IN 72 HRS.--AEROBICALLY OR ... Complete 06/30/17 12:30 Sputum Endotracheal Gram Stain - Final Complete 06/30/17 12:30 Sputum Culture - Final Klebsiella Pneumoniae Serratia Plymuthica Complete Imaging Last Impressions Head CT 07/10/17 0000 Signed Impressions: Service Date/Time: Tuesday, July 11, 2017 05:19 - CONCLUSION: 1. Continued evolution of right occipital hemorrhage. 2. Intraventricular hemorrhage. Eldon Duggan MD Chest X-Ray 07/09/17 0000 Signed Impressions: Service Date/Time: Sunday, July 09, 2017 16:34 - CONCLUSION: Trach tube in good position without pneumothorax. Seun Shirley MD FACR Abdomen X-Ray 07/01/17 0600 Signed Impressions: Service Date/Time: Saturday, July 01, 2017 04:18 - CONCLUSION: 1. Nonspecific bowel gas pattern without evidence for obstruction or free air. Ivan Bahena MD Carotid Artery Ultrasound 06/27/17 0000 Signed Impressions: Service Date/Time: Tuesday, June 27, 2017 12:59 - CONCLUSION: 1. Moderate diffuse atherosclerotic plaquing at both carotid bifurcations. 2. Mild elevated velocity in the proximal right internal carotid artery. If clinically indicated , recommend CTA of the carotid arteries for further evaluation. 3. No definite high grade or hemodynamically significant stenosis is demonstrated. David Moore MD Brain MRI 06/27/17 0000 Signed Impressions: Service Date/Time: Tuesday, June 27, 2017 09:23 - CONCLUSION: 1. New development of a nonhemorrhagic acute infarct involving the left occipital lobe. 2. Otherwise, the rest of the exam is stable compared to the prior MRI. David Moore MD Head Magnetic Resonance Angiography 06/15/17 0000 Signed Impressions: Service Date/Time: Thursday, June 15, 2017 11:52 - CONCLUSION: MRA within normal limits. There is a parenchymal hemorrhage in the posterior right temporal lobe with intraventricular extension. Ivan Bahena MD Physical Exam HEENT: PERRL; normocephalic; atraumatic; no jaundice. EVD head CHEST: CTA CARDIAC: RRR ABDOMEN: Soft, nondistended, nontender; no hepatosplenomegaly;BS+. peg site clean and dry EXTREMITIES: No clubbing, cyanosis, or edema. SKIN: Normal; no rash; no jaundice. CERTIFIER: nonverbal, awake (Bekah Judd) Assessment and Plan Plan ASSESSMENT - dysphagia, no PO intake - GI consulted for peg tube placement. she is s/p trach. - right posterior brain hemorrhage, left HAND STITCHER, partial seizure, aphasia, respiratory failure 2/2 aspiration, PNA per CCM 07/11/17 s/p EGD and PEG tube placement, findin gastritis with ulcerations, bx pending PEG site looks good PLAN - ok to start TF - await bx - supportive care - GI will sign off. please reconsult if needed pt seen by myself and Dr Blandon and this note is on his behalf (Bekah Judd) Plan Patient was seen and examined, agree with above-noted, patient had PEG tube yesterday, site looked good, had a biopsy for gastritis no active bleeding, will follow up as needed please call us for any GI issue (Edgar Blandon MD) Bekah Judd Jul 11, 2017 12:54 Edgar Blandon MD Jul 11, 2017 13:56
--- NOTE | 2017-07-11 13:23 | HHI.CCPN ---
Subjective Remarks/Hospital Course Severely dehydrated, elderly woman presents confused to [facility] ED with hypertensive urgency and semi-acute right hemispheric parenchymal brain hemorrhage. Arrived from [facility] on cardene gtt and aphasic. Handness not determined yet. Unable to get ROS. No anticoagulants. INR normal. 06/16: Flaccid left side. Minimal eye opening. Moves right arm and leg to stimulation. Breathes over vent. ICP control, EVD draining well. 06/17: Moving both arms, right much stronger. More alert but episodic apnea spells. 06/18: No events over the night. Patient remains intubated, off sedation. She is currently on pressure support, 01/04, doing well. Awake, following commands. Son present at bedside. T-max of 99.6. I/O 250/1545. 06/19: No events over the night. Patient did well yesterday on pressure support , but was not able to be extubated secondary to no cuff leak. She remains on Cardene currently at 9.5 mg/h. Afebrile with a T-max of 99.4. Negative fluid balance. 06/20: Patient did well over the night. T-max of 100.2. ICP of 4. Thick sputum secretions sent yesterday for culture now growing Staphylococcus. Patient is awake, off sedation following some commands. Off Cardene drip since yesterday. 06/21: Patient did well postextubation and over the night. T-max of 100 yesterday morning. Very good urine output. Patient awake following commands, denying any pain. 06/22: No events over the night. Patient doing well. She is awake and alert, denies headache, nausea, vomiting. No chest pain, no dyspnea, no palpitations. On 2 L nasal cannula. Afebrile over the last 24 hours. Diuresed well post Lasix and she is on negative fluid balance since admission. 06/23: Patient awake, feels better, denies chest pain, shortness of breath, palpitations, headache. Still has productive cough. Afebrile, urine output is adequate. 06/24: No events over the night. Patient afebrile over the last 24 hours. She remains awake, resting in bed, denies any complaints. Sons at bedside. 06/25: Resting comfortably. Drowsy, arousable. EVD at 15cm, drained 60 cc overnight. 06/26: Resting comfortably. Awake and alert. EVD in place drain 10 cc overnight however has some clear fluid draining around ventriculostomy site. Dr. Nixon planning EMPLOY[employer] TRAINING [employer]IST shunt for tomorrow. 06/27: Afebrile. Less arousable today. Eyes are closed. Subjective left-sided weakness. EVD in place at 20 cm. 4 cc overnight. On cefazolin with clear fluid draining from ventriculostomy site. MRI brain currently pending. 06/28: Afebrile. Intubated yesterday secondary to altered mental status/ aspiration. Arousable and follows commands in the ventilator. 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 Echocardiogram pending. Possibly some right carotid stenosis on carotid ultrasound which does not correlate to this current acute left MCA CVA 06/29: Afebrile. More arousable today. Spontaneously moving left upper extremity. Opens eyes to voice. Not following commands. Tolerating tube feeds at goal. 06/30: Resting in bed in no acute distress. More arousable today. Spontaneously moving left upper extremity. Opens eyes to voice. No bowel movement 07/01: T-max 99.8. Currently 99.3. Opens eyes to voice. Squeezes bilateral hands right greater than left. Not following commands however. Tolerating spontaneous breathing trial 07/02: T-max 100.1. Currently afebrile. Did not tolerate CPAP trial today. Slightly more responsive today briefly follow commands right greater than left. Tolerating tube feeding. 07/03: Tolerating CPAP trial today. T-max 100.1. Currently 98.5. 2 bowel movements. More arousable and alert today 07/04: on PSV 10/5/40%. more awake today. follows commands. 07/05: continues to be more awake and alert, but also continues to fail CPAP trials. becomes tachypneic and distress. Subjective 07/06: Afebrile. Arousable and follows commands. Neurologically stable. Tolerating tube feeding. On PSV trial since 1050 but currently going to back up mode secondary to apnea. 07/07: Will trial SBTs daily, watch for apnea periods. 07/08: Fentanyl off and she is a little more active today. She may be blind. Unable to extubate today. 07/09: Remains intubated off sedation, ischial spontaneously open moves extremities spontaneously but intermittently. Do not follow commands. Too weak to protect airway successfully. Vent day 13 will need trach and PEG, Dr. Nixon agrees. Will discuss with son. 07/10: Patient underwent percutaneous tracheostomy yesterday tolerated well. EVD raised to 20 yesterday tolerating well. GI consulted for PEG placement. Start weaning trials 07/11: Tolerating T piece, sleepy but wakes up easily following commands today bilateral upper and lower extremities. EVD remains clamped, CT from yesterday persistent hydrocephalus unchanged on my review Objective Vital Signs Date Time Temp Pulse Resp B/P (MAP) Pulse Ox O2 Delivery O2 Flow Rate FiO2 07/11/17 12:00 98.1 74 22 121/84 (96) 100 07/11/17 11:47 T-piece 6.00 28 Intake and Output 07/11/17 07/11/17 07/12/17 08:00 16:00 00:00 Intake Total 100 ml Output Total 251 ml Balance -251 ml 100 ml Result Diagram: 07/11/17 0345 07/11/17 0345 Imaging Last Impressions Chest X-Ray 07/02/17 06 Signed Impressions: Service Date/Time: Sunday, July 02, 2017 04:23 - CONCLUSION: No significant change Harsha Wen MD Abdomen X-Ray 07/01/17 0600 Signed Impressions: Service Date/Time: Saturday, July 01, 2017 04:18 - CONCLUSION: 1. Nonspecific bowel gas pattern without evidence for obstruction or free air. Ivan Bahena MD Carotid Artery Ultrasound 06/27/17 0000 Signed Impressions: Service Date/Time: Tuesday, June 27, 2017 12:59 - CONCLUSION: 1. Moderate diffuse atherosclerotic plaquing at both carotid bifurcations. 2. Mild elevated velocity in the proximal right internal carotid artery. If clinically indicated , recommend CTA of the carotid arteries for further evaluation. 3. No definite high grade or hemodynamically significant stenosis is demonstrated. David Moore MD Brain MRI 06/27/17 0000 Signed Impressions: Service Date/Time: Tuesday, June 27, 2017 09:23 - CONCLUSION: 1. New development of a nonhemorrhagic acute infarct involving the left occipital lobe. 2. Otherwise, the rest of the exam is stable compared to the prior MRI. David Moore MD Head CT 06/26/17 0000 Signed Impressions: Service Date/Time: Monday, June 26, 2017 10:08 - CONCLUSION: 1. Continued evolution of right cerebral hematoma with slightly increasing surrounding edema. 2. No new hemorrhage identified. 3. Continued ventricular dilatation with no further decompression following placement of ventriculostomy. 4. No significant shift of midline structures. Rene Lomeli MD Head Magnetic Resonance Angiography 06/15/17 0000 Signed Impressions: Service Date/Time: Thursday, June 15, 2017 11:52 - CONCLUSION: MRA within normal limits. There is a parenchymal hemorrhage in the posterior right temporal lobe with intraventricular extension. Ivan Bahena MD Objective Remarks General - 77-year-old female, on TP HEENT - pupils are equal, about 3 mm bilaterally, neck is supple. Left frontal [place] hole with placement of a ventriculostomy catheter Neck: New trach in place with no significant bleeding CV -RRR. sinus, no JVD. Chest - Equal chest rise. unlabored, clear. Abdomen - soft, nontender, not distended, no guarding. bs active. Extremities -warm, 1+ edema, + peripheral pulses, well perfused. Neuro: Opens eyes, follows commands today bilateral upper and lower extremities. EVD in place, clamped, ICP less than 10 A/P Problem List: (1) Hemorrhagic stroke ICD Code: I61.9 - Nontraumatic intracerebral hemorrhage, unspecified Status: Acute (2) Hypertensive urgency ICD Code: I16.0 - Hypertensive urgency Status: Acute (3) Encephalopathy, metabolic ICD Code: G93.41 - Metabolic encephalopathy Status: Acute (4) [place] (acute kidney injury) ICD Code: N17.9 - Acute kidney failure, unspecified Status: Acute Assessment and Plan Neuro/Psych: Right posterior temporal/occipital/parietal intra-axial hematoma Left MCA posterior temporal occipital CVA Right complex partial seizure Wernicke aphasia Acute encephalopathy Following commands. Ventric now clamped, ICP well controlled, leave clamped for another 24 hours per neurosurgery Decision to pull EVD vs need for EMPLOYMENT TRAINING SPECIALIST shunt, Dr. Nixon to decide in 24 hours Ventriculostomy placed 06/27-neurosurgery managing CT brain 06/25 revealed a right occipital parietal intra-axial hematoma with mild surrounding edema. MRI brain revealed a left MCA CVA involving the left posterior temporal occipital region On levetiracetam 500 mg twice daily for seizure. Acetaminophen 650 mg p.o. every 6 hours as needed fever/pain 1 through 10 MRI brain admission revealed right posterior temporal hemorrhage with ventricular extension MRA brain negative for aneurysm CT head 07/10/17: Continued evolution of right occipital hemorrhage, IVH Carotid Dopplers with possible right carotid stenosis. Does not explain acute left MCA CVA. ESR, CRP and hypercoagulable workup pending Followed by Dr. Crowell neurology CV: Hypertensive emergency Dyslipidemia Currently on metoprolol 25 mg by mouth twice daily Currently on pravastatin 40 mg daily/on atorvastatin 40 mg daily at home Holding aspirin 81 mg daily in light of acute hemorrhage 06/29 echo - Normal left ventricular size. Mild concentric LVH. The left ventricular systolic function is hyperdynamic with an estimated ejection fraction in the range of 65-70%. Trace TR. The estimated PASP is 43 mmHg. Resp: Acute hypoxic and hypercarbic respiratory failure secondary to aspiration Reintubated secondary to new acute CVA with aspiration. S/p trach 07/09/17 TP 4-6 hours todaqy as tolerated Ventilator bundle. Albuterol/ipratropium aerosols every 6 hours alternate nebs with albuterol aerosols every 2 hours as needed dyspnea GI: Hypoalbuminemia Constipation Jevity 1.5 at 50 cc an hour at goal, s/p PEG tube placement Famotidine 20 mg twice daily for GI prophylaxis Docusate sodium/senna 1 tablet twice daily for bowel regimen. Continue polyethylene glycol 17 g twice daily, : no indication for kent catheter. Endo: Sliding scale insulin if indicated to maintain euglycemia Renal: Creatinine currently within normal limits Monitor urine output Accurate I's and O's Heme: Normocytic anemia Monitor CBC daily. Follow trend Hypercoagulable workup ID: Serratia plymithica, MSSA and Klebsiella pneumonia Completed cefazolin 2 g IV every 8 hours day #7 -> done Switch to penicillin/tazobactam day #7 -> done Pertinent cultures 06/30 -sputum -Serratia Plymithica/Klebsiella pneumonia 06/29 -blood cultures 2 -no growth 06/18 -staph aureus/Klebsiella pneumonia sputum FEN: Replace electrolytes as clinically indicated MSK: Osteoarthritis/osteoporosis Holding alendronate 70 mg weekly. Resume clinically indicated Access -Utilize peripheral IV. Central line if indicated Prophylaxis -GI -famotidine -DVT -SCD/holding pharmacological prophylaxis in light of cerebral hematoma. Initiate when okay with neurosurgery Overall impression: Stable hemodynamics. Tolerating TP today. s/p tracheostomy . Need rehab placement versus LTAC after decision made regarding removal of enteric versus EMPLOYMENT TRAINING SPECIALIST shunt Hansel Mcleod MD Jul 11, 2017 13:23
--- NOTE | 2017-07-11 16:30 | HHI.NSPN ---
(Bell Mooney) Note Status Status: Progress Note (Bell Mooney) Interval History Interval History 77 year old female with large hemorrhage stroke with hydrocephalus, worsening mental status, patient became severely obtunded difficult to arouse, she underwent placement of ventriculostomy drain 06/15/1706/16: ventriculostomy draining well, intubated, opening eyes and moving right side spontaneously. 06/18: ventriculostomy draining well, remains intubated, opens eyes, tracks, moves right side, stable left paresis 06/19: ventriculostomy draining well, CSF still bloody, dark red. opens eyes and moves right side spontaneously 06/20: ventriculostomy draining well, still gross bloody CSF, intubated, but opens eyes and gave thumbs up to command 06/25: Awake, ventriculostomy draining, drain raised to 15 cm of water over the weekend with stable ICPs. 06/26: EVD raised to 20 cm H20 yesterday, ICPs remains stable overnight, however appears more lethargic today, minimally opens eyes but falls back asleep. 06/27: MRI Brain this morning with new acute nonhemorrhagic left occipital infarct. 06/28: left ventriculostomy draining well, intubated and sedated. 07/02: ventriculostomy draining well, remains intubated. ICPs low. 07/03: ICPs stable overnight, intubated, no sedatives, awake, following simple commands. ventriculostomy draining well. 07/04: remains awake, alert, follows commands. still intubated. ventriculostomy draining well, ICPs controlled overnight. 07/05: continues to be intubated, mildly sedated due to vent restlessness. ventriculostomy continues to drain well, ICPs stable. 07/06: remains intubated, CPAP trials continues. no change in neuro exam. EVD draining well. 07/09: ventriculostomy drain increased to 15 cm H20, awake, ICPs stable. 07/11: Ventriculostomy drain clamped overnight, follow-up CT brain this morning completed. Nursing reports patient at times alert, at times becomes drowsy and lethargic. Stable ICPs. (Bell Mooney) Labs, Micro, & Vital Signs Results Date Time Temp Pulse Resp B/P (MAP) Pulse Ox O2 Delivery O2 Flow Rate FiO2 07/11/17 12:00 98.1 74 22 121/84 (96) 100 07/11/17 12:00 74 07/11/17 11:47 99 T-piece 6.00 28 07/11/17 08:00 75 07/11/17 08:00 100 T-Piece 6.00 40 07/11/17 08:00 98.3 75 12 152/67 (95) 100 07/11/17 07:47 100 T-piece 6.00 40 07/11/17 07:38 100 35 07/11/17 06:00 68 07/11/17 04:00 98.2 65 19 115/57 (76) 100 07/11/17 04:00 40 07/11/17 04:00 65 07/11/17 03:19 100 40 07/11/17 02:00 70 07/11/17 00:00 98.4 83 18 116/58 (77) 98 07/11/17 00:00 83 07/11/17 00:00 40 07/10/17 23:22 98 40 07/10/17 22:00 101 07/10/17 20:29 100 40 07/10/17 20:00 40 07/10/17 20:00 98.4 85 18 170/78 (108) 100 07/10/17 20:00 85 07/10/17 19:00 100 Mechanical Ventilator 40 07/10/17 17:45 40 07/10/17 17:40 40 07/12/17 07:00 Intake Total 100 ml Output Total 0 ml Balance 100 ml Constitutional Vital Signs Date Time Temp Pulse Resp B/P (MAP) Pulse Ox O2 Delivery O2 Flow Rate FiO2 07/11/17 12:00 98.1 74 22 121/84 (96) 100 07/11/17 12:00 74 07/11/17 11:47 99 T-piece 6.00 28 07/11/17 08:00 75 07/11/17 08:00 100 T-Piece 6.00 40 07/11/17 08:00 98.3 75 12 152/67 (95) 100 07/11/17 07:47 100 T-piece 6.00 40 07/11/17 07:38 100 35 07/11/17 06:00 68 07/11/17 04:00 98.2 65 19 115/57 (76) 100 07/11/17 04:00 40 07/11/17 04:00 65 07/11/17 03:19 100 40 07/11/17 02:00 70 07/11/17 00:00 98.4 83 18 116/58 (77) 98 07/11/17 00:00 83 07/11/17 00:00 40 07/10/17 23:22 98 40 07/10/17 22:00 101 07/10/17 20:29 100 40 07/10/17 20:00 40 07/10/17 20:00 98.4 85 18 170/78 (108) 100 07/10/17 20:00 85 07/10/17 19:00 100 Mechanical Ventilator 40 07/10/17 17:45 40 07/10/17 17:40 40 07/12/17 07:00 Intake Total 100 ml Output Total 0 ml Balance 100 ml (Bell Mooney) Review of Systems ROS Limitations: Clinical Condition (Bell Mooney) Physical Exam Ms. Patrick is awake, follows a few simple commands. HEENT: Left ventriculostomy drain clamped, ICP normal. Site without signs of infection. Nonicteric sclera Cranial Nerves: Pupils equal, round reactive. Gross eoms intact, tracking. Cervical Spine: soft, supple Motor: moves extremities spontaneously and follows the commands Sensory: withdraws to pain stimuli Heart: regular rate rhythm Lungs: clear Skin. warm and dry (Bell Mooney) Ms. Patrick appears more drowzy, follows a few simple commands. HEENT: Left ventriculostomy drain clamped, ICP normal. Site without signs of infection. Nonicteric sclera Cranial Nerves: Pupils equal, round reactive. Gross eoms intact, tracking. Cervical Spine: soft, supple Motor: moves extremities spontaneously and follows the commands Sensory: withdraws to pain stimuli Heart: regular rate rhythm Lungs: clear Skin. warm and dry (Andre Nixon MD) Medications Current Medications Current Medications Medications (Trade) Dose Ordered Sig/Jose Guadalupe Route PRN Reason Start Time Stop Time Status Last Admin Dose Admin Sodium Chloride (NS Flush) 2 ml UNSCH PRN IV FLUSH FLUSH AFTER USING IV ACCESS 06/15/17 05:15 07/02/17 10:18 Ondansetron HCl (Zofran Inj) 4 mg Q6H PRN IV PUSH NAUSEA OR VOMITING 06/15/17 06:30 07/10/17 19:44 Miscellaneous Information 1 Q361D XX 06/15/17 06:30 06/15/17 06:30 Chlorhexidine Gluconate (Chlorhexidine 2% Cloth) Taper DAILY@04 TOP 06/16/17 04:00 06/12/18 03:59 06/20/17 04:00 Chlorhexidine Gluconate (Chlorhexidine 2% Cloth) 3 pack UNSCH PRN TOP HYGIENIC CARE 06/15/17 06:30 Magnesium Hydroxide (Milk Of Magnesia Liq) 30 ml Q12H PRN PO Mild constipation 06/15/17 06:30 06/22/17 20:58 Sennosides (Senokot) 17.2 mg Q12H PRN PO Moderate constipation 06/15/17 06:30 Bisacodyl (Dulcolax Supp) 10 mg DAILY PRN RECTAL SEVERE CONSITIPATION 06/15/17 06:30 Lactulose (Lactulose Liq) 30 ml DAILY PRN PO SEVERE CONSITIPATION 06/15/17 06:30 06/22/17 20:58 Chlorhexidine Gluconate (Peridex 0.12% Liq) 15 ml BID@08,20 MT 06/15/17 20:00 07/11/17 08:00 Pravastatin Sodium (Pravachol) 40 mg HS PO 06/18/17 21:00 07/10/17 22:53 Metoprolol Tartrate (Lopressor) 25 mg Q12HR PO 06/19/17 09:00 07/11/17 08:35 Hydralazine HCl (Apresoline Inj) 10 mg Q4H PRN IV PUSH SBP greater than 160 06/20/17 12:30 07/10/17 20:01 Albuterol Sulfate (Albuterol Neb) 2.5 mg Q2HR NEB PRN NEB dyspnea 06/27/17 09:15 Labetalol HCl (Trandate Inj) 10 mg Q1HR PRN IV PUSH SBP>160, DBP>90, HR>65 06/27/17 09:15 07/10/17 18:07 Propofol 100 ml @ 2.073 mls/ hr TITRATE PRN IV SEDATION 06/27/17 11:00 07/09/17 13:54 Fentanyl Citrate 250 ml @ 5 mls/hr TITRATE PRN IV SEDATION 06/27/17 11:00 07/06/17 04:21 Artificial Tears (Tears Naturale Opth Soln) 1 drop Q8HR EACH EYE 06/28/17 17:00 07/11/17 14:00 Polyethylene Glycol (Miralax) 17 gm BID PO 06/28/17 21:00 07/09/17 09:59 Metoclopramide HCl (Reglan Inj) 5 mg Q8HR IV PUSH 06/29/17 22:00 07/11/17 14:24 Docusate Sodium (Colace Liq) 100 mg Q12HR PO 06/29/17 21:00 07/10/17 22:53 Sennosides (Senna Liq) 8.8 mg BID PO 06/29/17 21:00 07/09/17 09:59 Folic Acid (Folate) 1 mg DAILY PO 07/04/17 09:15 07/11/17 08:35 Acetaminophen (Tylenol 650 Mg/ 20 ml Liq) 650 mg Q6H PRN PO fever 07/06/17 13:30 07/08/17 15:09 Levetriacetam 500 mg/Sodium Chloride 105 ml @ 420 mls/hr Q12HR IV 07/09/17 21:30 07/11/17 08:35 Cefazolin Sodium 1000 mg/Sodium Chloride 100 ml @ 200 mls/hr SPIN[employer]ING FRAME CH[employer]ER IV 07/10/17 10:30 07/13/17 10:29 07/10/17 14:17 Famotidine (Pepcid) 10 mg BID PEG 07/11/17 21:00 (Bell Mooney) Current Medications Current Medications Sodium Chloride (NS Flush) 2 ml UNSCH PRN IV FLUSH FLUSH AFTER USING IV ACCESS Last administered on 07/02/17at 10:18; Start 06/15/17 at 05:15 Sodium Chloride 500 ml @ 500 mls/hr BOLUS ONCE IV ; Start 06/15/17 at 06:00; Stop 06/15/17 at 06:59; Status DC Nicardipine HCl 25 mg/Sodium Chloride 250 ml @ 50 mls/hr TITRATE PRN IV Blood pressure management Last administered on 06/19/17at 06:43; Start 06/15/17 at 06: 15; Stop 06/23/17 at 17:33; Status DC Pravastatin Sodium (Pravachol) 80 mg HS PO Last administered on 06/17/17at 23:23 ; Start 06/15/17 at 21:00; Stop 06/18/17 at 09:30; Status DC Levetriacetam 100 ml @ 400 mls/hr BOLUS ONCE IV Last administered on at 09:43; Start 06/15/17 at 06:30; Stop 06/15/17 at 06:44; Status DC Sodium Chloride 1,000 ml @ 100 mls/hr Q10H IV Last administered on 06/17/17at 07:29; Start 06/15/17 at 06:17; Stop 06/17/17 at 12:42; Status DC Acetaminophen (Tylenol) 650 mg Q6H PRN PO PAIN 1-10 AND/OR FEVER >101F Last administered on 06/23/17at 20:18; Start 06/15/17 at 06:30; Stop 07/06/17 at 13:27 ; Status DC Morphine Sulfate (Morphine Inj) 2 mg Q2H PRN IV PUSH PAIN SCALE 6 TO 10 Last administered on 06/19/17at 08:29; Start 06/15/17 at 06:30; Stop 06/20/17 at 08:25 ; Status DC Famotidine (Pepcid Inj) 10 mg Q12HR IV PUSH Last administered on 06/25/17at 08: 45; Start 06/15/17 at 09:00; Stop 06/25/17 at 16:28; Status DC Ondansetron HCl (Zofran Inj) 4 mg Q6H PRN IV PUSH NAUSEA OR VOMITING Last administered on 07/10/17at 19:44; Start 06/15/17 at 06:30 Albuterol/ Ipratropium (Duoneb Neb) 1 ampule Q4HR NEB PRN INH WHEEZING; Start 06/15/17 at 06:30; Stop 06/27/17 at 09:15; Status DC Miscellaneous Information 1 Q361D XX Last administered on 06/15/17at 06:30; Start 06/15/17 at 06:30 Chlorhexidine Gluconate (Chlorhexidine 2% Cloth) Taper DAILY@04 TOP Last administered on 06/20/17at 04:00; Start 06/16/17 at 04:00; Stop 06/12/18 at 03:59 Chlorhexidine Gluconate (Chlorhexidine 2% Cloth) 3 pack UNSCH PRN TOP HYGIENIC CARE; Start 06/15/17 at 06:30 Senna/Docusate Sodium ([place]-Colace) 1 tab BID PO Last administered on at 08:00; Start 06/15/17 at 09:00; Stop 06/29/17 at 15:16; Status DC Magnesium Hydroxide (Milk Of Magnesia Liq) 30 ml Q12H PRN PO Mild constipation Last administered on 06/22/17at 20:58; Start 06/15/17 at 06:30 Sennosides (Senokot) 17.2 mg Q12H PRN PO Moderate constipation; Start 06/15/17 at 06:30 Bisacodyl (Dulcolax Supp) 10 mg DAILY PRN RECTAL SEVERE CONSITIPATION; Start at 06:30 Lactulose (Lactulose Liq) 30 ml DAILY PRN PO SEVERE CONSITIPATION Last administered on 06/22/17at 20:58; Start 06/15/17 at 06:30 Rocuronium Fenwick (Zemuron Inj) 100 mg BOLUS ONCE IV Last administered on at 14:34; Start 06/15/17 at 14:00; Stop 06/15/17 at 14:01; Status DC Midazolam HCl (Versed Inj) 5 mg ONCE ONCE IV PUSH Last administered on at 14:35; Start 06/15/17 at 14:00; Stop 06/15/17 at 14:01; Status DC Chlorhexidine Gluconate (Peridex 0.12% Liq) 15 ml BID@08,20 MT Last administered on 07/15/17at 20:25; Start 06/15/17 at 20:00 Propofol 100 ml @ 0 mls/hr TITRATE PRN IV SEDATION; Start 06/15/17 at 14:00; Status UNV Midazolam HCl (Versed Inj) 5 mg STK-MED ONCE .ROUTE ; Start 06/15/17 at 14:07; Stop 06/15/17 at 14:08; Status DC Rocuronium Fenwick (Zemuron Inj) 50 mg STK-MED ONCE .ROUTE ; Start 06/15/17 at 14:07; Stop 06/15/17 at 14:08; Status DC Propofol 100 ml @ 1.941 mls/ hr TITRATE PRN IV SEDATION Last administered on at 14:41; Start 06/15/17 at 14:45; Stop 06/21/17 at 14:09; Status DC Miscellaneous Information (RASS Change Order) 1 ea ONCE ONCE XX Last administered on 06/15/17at 14:45; Start 06/15/17 at 14:45; Stop 06/15/17 at 14:46 ; Status DC Norepinephrine Bitartrate 4 mg/ Sodium Chloride 250 ml @ 7.5 mls/hr TITRATE PRN IV Maintain MAP > 70 mmHg; Start 06/15/17 at 19:45; Stop 06/15/17 at 21:37; Status DC Norepinephrine Bitartrate 4 mg/ Sodium Chloride 250 ml @ 7.5 mls/hr TITRATE PRN IV Maintain MAP > 70 mmHg Last administered on 06/15/17at 19:00; Start at 21:45; Stop 06/20/17 at 08:11; Status DC Levetriacetam (Keppra) 500 mg Q12HR PO Last administered on 07/09/17at 09:59; Start 06/17/17 at 11:30; Stop 07/09/17 at 21:24; Status DC Potassium Chloride 20 meq/ Lactated Ringer's 1,010 ml @ 42 mls/hr Q24H IV ; Start 06/17/17 at 12:45; Stop 06/17/17 at 13:02; Status DC Potassium Chloride 10 meq/ Lactated Ringer's 505 ml @ 42 mls/hr Q12H2M IV Last administered on 06/19/17at 22:32; Start 06/17/17 at 13:15; Stop 06/20/17 at 08:13; Status DC Pravastatin Sodium (Pravachol) 40 mg HS PO Last administered on 07/15/17at 20:26 ; Start 06/18/17 at 21:00 Potassium Phosphate 15 mmol/ Sodium Chloride 155 ml @ 38.75 mls/ hr ONCE ONCE IV Last administered on 06/19/17at 08:50; Start 06/19/17 at 08:00; Stop at 11:59; Status DC Metoprolol Tartrate (Lopressor) 25 mg Q12HR PO Last administered on 07/15/17at 20:26; Start 06/19/17 at 09:00 Pharmacy Profile Note 0 ml @ 0 mls/hr UNSCH OTHER ; Start 06/20/17 at 08:15; Stop 06/21/17 at 14:09; Status DC Albuterol/ Ipratropium (Duoneb Neb) 1 ampule Q6HR NEB NEB Last administered on 06/24/17at 07:16; Start 06/20/17 at 10:00; Stop 06/24/17 at 09:59; Status DC Vancomycin HCl 1250 mg/Sodium Chloride 262.5 ml @ 262.5 mls/ hr ONCE ONCE IV Last administered on 06/20/17at 13:29; Start 06/20/17 at 12:00; Stop 06/20/17 at 12:59; Status DC Hydralazine HCl (Apresoline Inj) 10 mg Q4H PRN IV PUSH SBP greater than 160 Last administered on 07/15/17at 20:28; Start 06/20/17 at 12:30 Potassium Phosphate 15 mmol/ Sodium Chloride 155 ml @ 38.75 mls/ hr ONCE ONCE IV Last administered on 06/20/17at 17:05; Start 06/20/17 at 13:45; Stop at 17:44; Status DC Furosemide (Lasix Inj) 40 mg ONCE ONCE IV PUSH Last administered on 06/21/17at 08:53; Start 06/21/17 at 08:30; Stop 06/21/17 at 08:31; Status DC Cefazolin Sodium/ Dextrose 50 ml @ 100 mls/hr Q8H IV Last administered on 06/24at 15:02; Start 06/21/17 at 15:00; Stop 06/24/17 at 21:47; Status DC Cefazolin Sodium 2000 mg/Sodium Chloride 120 ml @ 240 mls/hr Q8H IV Last administered on 06/30/17at 06:06; Start 06/24/17 at 23:00; Stop 06/30/17 at 10:37 ; Status DC Famotidine (Pepcid) 10 mg BID PO Last administered on 07/03/17at 08:48; Start at 21:00; Stop 07/03/17 at 20:13; Status DC Chlorhexidine Gluconate (Hibiclens 4% Top Soln) 1 applic HS TOP Last administered on 06/27/17at 05:56; Start 06/26/17 at 21:00; Stop 06/28/17 at 21:01 ; Status DC Acetaminophen 100 ml @ As Directed STK-MED ONCE IV ; Start 06/27/17 at 07:04; Stop 06/27/17 at 07:05; Status DC Artificial Tears (Lacrilube Opht Oint) 3.5 applic STK-MED ONCE .ROUTE ; Start at 07:05; Stop 06/27/17 at 07:06; Status DC Lidocaine/ Epinephrine (Xylocaine-Epi 1%-1:100,000 Inj) 30 ml STK-MED ONCE .ROUTE ; Start 06/27/17 at 07:32; Stop 06/27/17 at 07:33; Status DC Thrombin (Thrombin Top Soln) 10,000 units STK-MED ONCE .ROUTE ; Start 06/27/17 at 07:32; Stop 06/27/17 at 07:33; Status DC Gelatin (Gelfoam 100 Top) 1 foam STK-MED ONCE .ROUTE ; Start 06/27/17 at 07:32; Stop 06/27/17 at 07:33; Status DC Bacitracin (Baciguent Oint) 15 applic STK-MED ONCE .ROUTE ; Start 06/27/17 at 07 :32; Stop 06/27/17 at 07:33; Status DC Gentamicin Sulfate (Gentamicin Inj) 240 mg STK-MED ONCE .ROUTE ; Start 06/27/17 at 07:33; Stop 06/27/17 at 07:34; Status DC Albuterol Sulfate (Albuterol Neb) 2.5 mg Q2HR NEB PRN NEB dyspnea Last administered on 07/11/17at 19:52; Start 06/27/17 at 09:15 Labetalol HCl (Trandate Inj) 10 mg Q1HR PRN IV PUSH SBP>160, DBP>90, HR>65 Last administered on 07/10/17at 18:07; Start 06/27/17 at 09:15 Polyethylene Glycol (Miralax) 17 gm ONCE ONCE PO ; Start 06/27/17 at 09:15; Stop 06/27/17 at 09:19; Status DC Polyethylene Glycol (Miralax) 17 gm DAILY PO Last administered on 06/28/17at 08: 31; Start 06/28/17 at 09:00; Stop 06/28/17 at 15:18; Status DC Glycerin (Glycerin Adult Supp) 2 gm ONCE ONCE RECTAL ; Start 06/27/17 at 09:15 ; Stop 06/27/17 at 09:20; Status DC Sodium Chloride (Sodium Chloride) 1 gm ONCE ONCE PO ; Start 06/27/17 at 09:45; Stop 06/27/17 at 10:35; Status DC Propofol (Diprivan 500 Mg/ 50 ml Inj) 100 mg ONCE ONCE IV Last administered on 06/27/17at 11:10; Start 06/27/17 at 11:00; Stop 06/27/17 at 11:01; Status DC Chlorhexidine Gluconate (Peridex 0.12% Liq) 15 ml BID@08,20 MT ; Start 06/27/17 at 20:00; Status Cancel Propofol 100 ml @ 2.073 mls/ hr TITRATE PRN IV SEDATION Last administered on at 13:54; Start 06/27/17 at 11:00 Fentanyl Citrate 250 ml @ 5 mls/hr TITRATE PRN IV SEDATION Last administered on 07/06/17at 04:21; Start 06/27/17 at 11:00 Lidocaine HCl (Xylocaine 2% Inj) 100 mg ONCE ONCE IV PUSH Last administered on 06/27/17at 13:34; Start 06/27/17 at 11:00; Stop 06/27/17 at 11:01; Status DC Etomidate (Amidate Inj) 40 mg ONCE ONCE IV PUSH Last administered on at 13:34; Start 06/27/17 at 11:00; Stop 06/27/17 at 11:01; Status DC Rocuronium Fenwick (Zemuron Inj) 100 mg BOLUS ONCE IV Last administered on at 13:35; Start 06/27/17 at 11:30; Stop 06/27/17 at 11:31; Status DC Lidocaine/ Epinephrine (Xylocaine-Epi 1%-1:100,000 Inj) 30 ml STK-MED ONCE .ROUTE ; Start 06/27/17 at 10:50; Stop 06/27/17 at 10:51; Status DC Rocuronium Fenwick (Zemuron Inj) 100 mg STK-MED ONCE .ROUTE ; Start 06/27/17 at 10:51; Stop 06/27/17 at 10:52; Status DC Artificial Tears (Tears Naturale Opth Soln) 1 drop Q8HR EACH EYE Last administered on 07/15/17 14:00; Start 06/28/17 at 17:00 Polyethylene Glycol (Miralax) 17 gm BID PO Last administered on 07/15/17 08:58 ; Start 06/28/17 at 21:00 Lactulose (Lactulose Liq) 30 ml QID PO Last administered on 07/01/17at 13:08; Start 06/28/17 at 18:00; Stop 07/01/17 at 14:12; Status DC Mineral Oil (Kondremul Liq) 30 ml ONCE ONCE PO Last administered on 06/28/17 16:54; Start 06/28/17 at 17:00; Stop 06/28/17 at 17:01; Status DC Glycerin (Glycerin Adult Supp) 2 gm ONCE ONCE RECTAL Last administered on 06/28 16:54; Start 06/28/17 at 17:00; Stop 06/28/17 at 17:01; Status DC Methylnaltrexone Fenwick (Relistor Inj) 12 mg ONCE ONCE SQ Last administered on 06/28/17 17:20; Start 06/28/17 at 17:00; Stop 06/28/17 at 17:01; Status DC Metoclopramide HCl (Reglan Inj) 5 mg Q8HR IV PUSH Last administered on 15:42; Start 06/29/17 at 22:00 Methylnaltrexone Fenwick (Relistor Inj) 12 mg ONCE ONCE SQ Last administered on 06/29/17 17:14; Start 06/29/17 at 15:15; Stop 06/29/17 at 15:30; Status DC Docusate Sodium (Colace Liq) 100 mg Q12HR PO Last administered on 4/15/18at 08: 56; Start 06/29/17 at 21:00 Sennosides (Senna Liq) 8.8 mg BID PO Last administered on 07/15/17at 08:57; Start 06/29/17 at 21:00 Mineral Oil (Kondremul Liq) 30 ml ONCE ONCE PO Last administered on 06/29/17at 15:15; Start 06/29/17 at 15:15; Stop 06/29/17 at 15:30; Status DC Glycerin (Glycerin Adult Supp) 2 gm ONCE ONCE RECTAL Last administered on 06/29at 15:15; Start 06/29/17 at 15:15; Stop 06/29/17 at 15:30; Status DC Magnesium Citrate (Citroma Liq) 300 ml ONCE ONCE PO ; Start 06/30/17 at 10:45; Stop 06/30/17 at 10:49; Status DC Mineral Oil (Fleet Mineral Oil Enema) 118 ml ONCE ONCE RECTAL ; Start 06/30/17 at 10:45; Stop 06/30/17 at 10:49; Status DC Mineral Oil (Kondremul Liq) 30 ml ONCE ONCE PO ; Start 06/30/17 at 10:45; Stop 06/30/17 at 10:49; Status DC Sodium Phosphate 30 mmol/Sodium Chloride 260 ml @ 43.333 mls/ hr ONCE ONCE IV ; Start 06/30/17 at 12:00; Stop 06/30/17 at 17:59; Status DC Magnesium Sulfate/ Dextrose 100 ml @ 100 mls/hr Q1H IV Last administered on at 11:45; Start 06/30/17 at 10:45; Stop 06/30/17 at 12:44; Status DC Piperacillin Sod/ Tazobactam Sod 100 ml @ 200 mls/hr Q6H IV Last administered on 07/07/17at 09:59; Start 06/30/17 at 11:00; Stop 07/07/17 at 11:00; Status DC Albuterol/ Ipratropium (Duoneb Neb) 1 ampule Q6HR WHILE AWAKE NEB NEB Last administered on 07/05/17at 13:13; Start 07/01/17 at 20:00; Stop 07/05/17 at 14:07; Status DC Potassium Chloride (KCl Powder) 20 meq ONCE ONCE PO ; Start 07/02/17 at 22:15; Stop 07/02/17 at 22:16; Status DC Famotidine (Pepcid) 20 mg BID PO Last administered on 07/09/17at 09:59; Start 07/03/17 at 21:00; Stop 07/10/17 at 14:29; Status DC Folic Acid (Folate) 1 mg DAILY PO Last administered on 07/15/17at 08:58; Start 07/04/17 at 09:15 Albuterol/ Ipratropium (Duoneb Neb) 1 ampule Q6HR WHILE AWAKE NEB NEB Last administered on 07/06/17at 13:06; Start 07/05/17 at 14:00; Stop 07/06/17 at 13:27; Status DC Albuterol/ Ipratropium (Duoneb Neb) 1 ampule Q6HR ALT NEB NEB ; Start 07/06/17 at 19:00; Stop 07/06/17 at 19:00; Status DC Acetaminophen (Tylenol 650 Mg/ 20 ml Liq) 650 mg Q6H PRN PO fever Last administered on 07/08/17at 15:09; Start 07/06/17 at 13:30 Albuterol/ Ipratropium (Duoneb Neb) 1 ampule Q6HR NEB NEB Last administered on 07/10/17at 20:29; Start 07/06/17 at 22:00; Stop 07/10/17 at 21:59; Status DC Midazolam HCl (Versed Inj) 5 mg ONCE ONCE IV PUSH Last administered on at 14:33; Start 07/09/17 at 14:00; Stop 07/09/17 at 14:01; Status DC Rocuronium Fenwick (Zemuron Inj) 50 mg BOLUS ONCE IV Last administered on at 14:30; Start 07/09/17 at 14:00; Stop 07/09/17 at 14:01; Status DC Fentanyl Citrate (fentaNYL INJ) 200 mcg ONCE ONCE IV PUSH Last administered on 07/09/17at 14:31; Start 07/09/17 at 14:00; Stop 07/09/17 at 14:01; Status DC Norepinephrine Bitartrate 250 ml @ As Directed STK-MED ONCE IV ; Start 07/09/17 at 15:47; Stop 07/09/17 at 15:48; Status DC Levetriacetam 500 mg/Sodium Chloride 105 ml @ 420 mls/hr Q12HR IV Last administered on 07/11/17at 08:35; Start 07/09/17 at 21:30; Stop 07/11/17 at 17:51 ; Status DC Cefazolin Sodium 1000 mg/Sodium Chloride 100 ml @ 200 mls/hr SPIN[employer]ING [employer] CHANGER IV Last administered on 07/10/17at 14:17; Start 07/10/17 at 10:30; Stop 07/12/17 at 20:27 ; Status DC Famotidine (Pepcid) 10 mg BID PO ; Start 07/10/17 at 21:00; Stop 07/10/17 at 21: 00; Status DC Pantoprazole Sodium (Protonix) 20 mg DAILY PO ; Start 07/10/17 at 17:00; Stop at 11:19; Status DC Propofol (Diprivan 200 Mg/20 ml Inj) 200 mg STK-MED ONCE IV ; Start 07/10/17 at 12:00; Stop 07/11/17 at 10:48; Status DC Phenylephrine HCl (Neosynephrine/ NS 1000 Mcg/10ml Syr) 1,000 mcg STK-MED ONCE IV ; Start 07/10/17 at 12:00; Stop 07/11/17 at 10:48; Status DC Famotidine (Pepcid) 10 mg BID PEG Last administered on 07/15/17at 20:26; Start 07/11/17 at 21:00 Levetriacetam (Keppra) 500 mg Q12HR PEG Last administered on 07/15/17at 20:26; Start 07/11/17 at 21:00 Sodium Chloride (Sodium Chloride) 1 gm Q12HR PO Last administered on 07/15/17at 20:26; Start 07/12/17 at 13:15 Sodium Chloride 1,000 ml @ 100 mls/hr Q10H IV Last administered on 07/13/17at 05:45; Start 07/12/17 at 19:45; Stop 07/13/17 at 17:41; Status DC Cefazolin Sodium/ Dextrose 50 ml @ 150 mls/hr [employer] IV Last administered on 07/13/17at 14:53; Start 07/12/17 at 19:45 Vancomycin HCl 1000 mg/Sodium Chloride 250 ml @ 250 mls/hr [employer] IV ; Start 07/12/17 at 19:45 Chlorhexidine Gluconate (Hibiclens 4% Top Soln) 1 applic HS TOP Last administered on 07/13/17at 09:00; Start 07/12/17 at 21:00; Stop 07/13/17 at 21:01 ; Status DC Acetaminophen 100 ml @ As Directed STK-MED ONCE IV ; Start 07/13/17 at 12:10; Stop 07/13/17 at 12:11; Status DC Artificial Tears (Lacrilube Opht Oint) 3.5 applic STK-MED ONCE .ROUTE ; Start at 12:10; Stop 07/13/17 at 12:11; Status DC Lidocaine/ Epinephrine (Xylocaine-Epi 1%-1:100,000 Inj) 30 ml STK-MED ONCE .ROUTE Last administered on 07/13/17at 14:50; Start 07/13/17 at 12:58; Stop at 12:59; Status DC Thrombin (Thrombin Top Soln) 5,000 units STK-MED ONCE .ROUTE Last administered on 07/13/17at 14:50; Start 07/13/17 at 12:58; Stop 07/13/17 at 12:59; Status DC Gelatin (Gelfoam 100 Top) 1 foam STK-MED ONCE .ROUTE Last administered on at 14:50; Start 07/13/17 at 12:58; Stop 07/13/17 at 12:59; Status DC Bacitracin (Baciguent Oint) 15 applic STK-MED ONCE .ROUTE Last administered on 07/13/17at 14:50; Start 07/13/17 at 12:58; Stop 07/13/17 at 12:59; Status DC Gentamicin Sulfate (Gentamicin Inj) 240 mg STK-MED ONCE .ROUTE Last administered on 07/13/17at 14:50; Start 07/13/17 at 12:58; Stop 07/13/17 at 12:59 ; Status DC Fentanyl Citrate (fentaNYL INJ) 100 mcg STK-MED ONCE .ROUTE ; Start 07/13/17 at 16:36; Stop 07/13/17 at 16:37; Status DC Potassium Chloride/Sodium Chloride 1,000 ml @ 100 mls/hr Q10H IV Last administered on 07/14/17at 02:47; Start 07/13/17 at 16:38; Stop 07/14/17 at 13:01 ; Status DC Cefazolin Sodium/ Dextrose 50 ml @ 100 mls/hr Q8H IV Last administered on 07/14at 14:00; Start 07/13/17 at 22:00; Stop 07/14/17 at 14:29; Status DC Pantoprazole Sodium (Protonix Inj) 40 mg DAILY IVP Last administered on at 08:56; Start 07/14/17 at 09:00 Acetaminophen/ Hydrocodone Bitart ([place] 10-325 Mg) 1 tab Q4H PRN PO PAIN SCALE 1 TO 5; Start 07/13/17 at 16:45 Acetaminophen/ Hydrocodone Bitart ([place] 10-325 Mg) 2 tab Q4H PRN PO PAIN SCALE 6 TO 10; Start 07/13/17 at 16:45 Morphine Sulfate (Morphine Inj) 2 mg Q2H PRN IV PUSH PAIN SCALE 1 TO 6; Start 07/13/17 at 16:45 Morphine Sulfate (Morphine Inj) 4 mg Q2H PRN IV PUSH PAIN SCALE 7 TO 10; Start 07/13/17 at 16:45 Acetaminophen (Tylenol) 650 mg Q4H PRN PO TEMPERATURE > 101.5 F; Start at 16:45 Miscellaneous Information ALL NURSING DEPARTME... UNSCH PRN .XX SEE LABEL COMMENTS; Start 07/13/17 at 16:08; Stop 07/14/17 at 16:07; Status DC (Andre Nixon MD) Medical Decision Making MDM Remarks 77 y/o female with large hemorrhagic stroke, she had evidence of hydrocephalus, she underwent placement of ventriculostomy drain 06/15/17 due to worsening mental status with improvement of mental status pt did not tolerate clamping of ventriculostomy drain, ventriculostomy drain replaced 06/27/17, ST[employer]IST shunt held due to new right side stroke, rechallenging ventriculostomy, ventriculostomy drain clamped, follow-up CT brain 411 with persistent ventriculomegaly, intermittent drowsiness and lethargy on examination (Bell Mooney) Plan Plan Remarks follow-up CT brain reviewed by Dr. Nixon continue clamping her EVD drain for another 24 hours, reassess neurological examination tomorrow (Bell Mooney) Attending Statement She is getting more drowzy. Will maintain ventriculostomy clamped. Depending on her evolution, a STARS [employer]IST shunt may be requitred Continue pulmonary toilette, nasotracheal suction, and breathing treatments with nebulizers. Nutrition. NPO Renal. monitor closely urine output, BUN and creatinine Endocrine. Monitor serial Acu checks and SSI as needed in detail ID monitor for signs of infection Protonix for stress ulcer prophylaxis Nickolas hose and SCD's for DVT prophylaxis. The exam, history, and the medical decision-making described in the above note were completed with the assistance of the mid-level provider. I reviewed and agree with the findings presented. I attest that I had a [id number] encounter with the patient on the same day, and personally performed and documented my assessment and findings in the medical record. (Andre Nixno MD) Bell Mooney Jul 11, 2017 16:30 Andre Nixon MD Jul 15, 2017 21:07
[2017-07-11] MEDS: PRAVASTATIN SOD 40 MG TAB PO SCH (19:50)
[2017-07-11] MEDS: FAMOTIDINE 20 MG TAB PEG SCH (19:50)
[2017-07-11] MEDS: levETIRAcetam 500 MG TAB PEG SCH (19:50)
[2017-07-12] VITALS (13 sets, daily range): BP systolic 144–164; BP diastolic 64–77; PULSE 65–88; RESP 15–27; TEMP 98.3–99.5; O2SAT 97–100
[2017-07-12] MEDS: CHLORHEXIDINE GLUCONATE 2 % 1 PACK (2 CLOTHS) TOP SCH (04:00)
[2017-07-12] MEDS: ARTIFICIAL TEARS OPTH SOLN 15 ML BTL EACH EYE SCH ×3 (05:49→21:07)
[2017-07-12] MEDS: METOCLOPRAMIDE HCL 10 MG/2 ML VIAL IV PUSH SCH ×3 (05:54→21:07)
[2017-07-12] MEDS: CHLORHEXIDINE 0.12% (ORAL KIT) 15 ML CUP MT SCH ×2 (08:00→20:00)
[2017-07-12] MEDS: POLYETHYLENE GLYCOL 17 GM PKG PO SCH ×2 (09:00→21:06)
[2017-07-12] MEDS: levETIRAcetam 500 MG TAB PEG SCH ×2 (10:34→21:06)
[2017-07-12] MEDS: METOPROLOL TARTRATE 25 MG TAB PO SCH ×2 (10:34→21:06)
[2017-07-12] MEDS: FAMOTIDINE 20 MG TAB PEG SCH ×2 (10:34→21:06)
[2017-07-12] MEDS: FOLIC ACID 1 MG TAB PO SCH (10:34)
[2017-07-12] MEDS: SENNOSIDES SYRUP 8.8 MG/5 ML CUP PO SCH ×2 (10:35→21:07)
[2017-07-12] MEDS: DOCUSATE SODIUM 100 MG/10 ML UDC PO SCH ×2 (10:35→21:06)
[2017-07-12 11:46] LABS: CSF HISTIOCYTES 9 %; CSF LYMPHOCYTES 91 %; CSF NEUTROPHILS 0 %; RBC TUBE #1 4 /MM3; SUPERNATE COLOR TUBE #1 XANTHOCHROMIC (CLEAR); VOLUME TUBE # 1 2.5 ML; WBC TUBE #1 1 /MM3 (0-10)
[2017-07-12 11:49] LABS: TOTAL PROTEIN,CSF 36.1 MG/DL (15.0-45.0)
--- NOTE | 2017-07-12 12:11 | HHI.NSPN ---
(Bell Mooney) Note Status Status: Progress Note (Bell Mooney) Interval History Interval History 77 year old female with large hemorrhage stroke with hydrocephalus, worsening mental status, patient became severely obtunded difficult to arouse, she underwent placement of ventriculostomy drain 06/15/1706/16: ventriculostomy draining well, intubated, opening eyes and moving right side spontaneously. 06/18: ventriculostomy draining well, remains intubated, opens eyes, tracks, moves right side, stable left paresis 06/19: ventriculostomy draining well, CSF still bloody, dark red. opens eyes and moves right side spontaneously 06/20: ventriculostomy draining well, still gross bloody CSF, intubated, but opens eyes and gave thumbs up to command 06/25: Awake, ventriculostomy draining, drain raised to 15 cm of water over the weekend with stable ICPs. 06/26: EVD raised to 20 cm H20 yesterday, ICPs remains stable overnight, however appears more lethargic today, minimally opens eyes but falls back asleep. 06/27: MRI Brain this morning with new acute nonhemorrhagic left occipital infarct. 06/28: left ventriculostomy draining well, intubated and sedated. 07/02: ventriculostomy draining well, remains intubated. ICPs low. 07/03: ICPs stable overnight, intubated, no sedatives, awake, following simple commands. ventriculostomy draining well. 07/04: remains awake, alert, follows commands. still intubated. ventriculostomy draining well, ICPs controlled overnight. 07/05: continues to be intubated, mildly sedated due to vent restlessness. ventriculostomy continues to drain well, ICPs stable. 07/06: remains intubated, CPAP trials continues. no change in neuro exam. EVD draining well. 07/09: ventriculostomy drain increased to 15 cm H20, awake, ICPs stable. 07/11: Ventriculostomy drain clamped overnight, follow-up CT brain this morning completed. Nursing reports patient at times alert, at times becomes drowsy and lethargic. Stable ICPs. 07/12: appearing more sleepier this morning. ICPs continues to be controlled. (Bell Mooney) Labs, Micro, & Vital Signs Results Date Time Temp Pulse Resp B/P (MAP) Pulse Ox O2 Delivery O2 Flow Rate FiO2 07/12/17 09:00 100 Trach Collar 5.00 40 07/12/17 09:00 100 Trach Collar 35 07/12/17 08:00 35 07/12/17 08:00 99.0 70 17 164/74 (104) 100 07/12/17 08:00 70 07/12/17 07:47 100 35 07/12/17 07:45 35 07/12/17 06:00 68 07/12/17 04:00 99.5 70 23 153/72 (99) 100 07/12/17 04:00 35 07/12/17 04:00 70 07/12/17 03:43 100 35 07/12/17 02:00 67 07/12/17 00:00 69 07/12/17 00:00 35 07/12/17 00:00 99.2 69 15 144/65 (91) 100 07/11/17 23:51 100 35 07/11/17 22:00 64 07/11/17 20:00 35 07/11/17 20:00 75 07/11/17 20:00 98.7 75 22 146/67 (93) 100 07/11/17 19:58 100 35 07/11/17 19:00 100 Mechanical Ventilator 35 07/11/17 16:00 82 07/11/17 16:00 97.9 82 24 116/57 (76) 100 07/13/17 07:00 Output Total 0 ml Balance 0 ml Constitutional Vital Signs Date Time Temp Pulse Resp B/P (MAP) Pulse Ox O2 Delivery O2 Flow Rate FiO2 07/12/17 09:00 100 Trach Collar 5.00 40 07/12/17 09:00 100 Trach Collar 35 07/12/17 08:00 35 07/12/17 08:00 99.0 70 17 164/74 (104) 100 07/12/17 08:00 70 07/12/17 07:47 100 35 07/12/17 07:45 35 07/12/17 06:00 68 07/12/17 04:00 99.5 70 23 153/72 (99) 100 07/12/17 04:00 35 07/12/17 04:00 70 07/12/17 03:43 100 35 07/12/17 02:00 67 07/12/17 00:00 69 07/12/17 00:00 35 07/12/17 00:00 99.2 69 15 144/65 (91) 100 07/11/17 23:51 100 35 07/11/17 22:00 64 07/11/17 20:00 35 07/11/17 20:00 75 07/11/17 20:00 98.7 75 22 146/67 (93) 100 07/11/17 19:58 100 35 07/11/17 19:00 100 Mechanical Ventilator 35 07/11/17 16:00 82 07/11/17 16:00 97.9 82 24 116/57 (76) 100 07/13/17 07:00 Output Total 0 ml Balance 0 ml (Bell Mooney) Review of Systems ROS Limitations: Clinical Condition, Altered Mental Status (Bell Mooney) Physical Exam Ms. Darnell valencia appears more drowsy today, not as alert as yesterday. HEENT: Left ventriculostomy drain clamped, ICP normal. Site without signs of infection. Nonicteric sclera Cranial Nerves: Pupils equal, round reactive. Gross eoms intact, tracking. Cervical Spine: soft, supple Motor: not consistently following commands, intermittent movements of extremities Sensory: withdraws to pain stimuli Heart: regular rate rhythm Lungs: clear Skin. warm and dry (Bell Mooney) Ms. Patrick is appears more drowsy today, not as alert as yesterday. HEENT: Left ventriculostomy drain clamped, ICP normal. Site without signs of infection. Nonicteric sclera Cranial Nerves: Pupils equal, round reactive. Gross eoms intact, tracking. Cervical Spine: soft, supple Motor: not consistently following commands, intermittent movements of extremities Sensory: withdraws to pain stimuli Heart: regular rate rhythm Lungs: clear Skin. warm and dry (Andre Nixon MD) Medications Current Medications Current Medications Medications (Trade) Dose Ordered Sig/Jose Guadalupe Route PRN Reason Start Time Stop Time Status Last Admin Dose Admin Sodium Chloride (NS Flush) 2 ml UNSCH PRN IV FLUSH FLUSH AFTER USING IV ACCESS 06/15/17 05:15 07/02/17 10:18 Ondansetron HCl (Zofran Inj) 4 mg Q6H PRN IV PUSH NAUSEA OR VOMITING 06/15/17 06:30 07/10/17 19:44 Miscellaneous Information 1 Q361D XX 06/15/17 06:30 06/15/17 06:30 Chlorhexidine Gluconate (Chlorhexidine 2% Cloth) Taper DAILY@04 TOP 06/16/17 04:00 06/12/18 03:59 06/20/17 04:00 Chlorhexidine Gluconate (Chlorhexidine 2% Cloth) 3 pack UNSCH PRN TOP HYGIENIC CARE 06/15/17 06:30 Magnesium Hydroxide (Milk Of Magnesia Liq) 30 ml Q12H PRN PO Mild constipation 06/15/17 06:30 06/22/17 20:58 Sennosides (Senokot) 17.2 mg Q12H PRN PO Moderate constipation 06/15/17 06:30 Bisacodyl (Dulcolax Supp) 10 mg DAILY PRN RECTAL SEVERE CONSITIPATION 06/15/17 06:30 Lactulose (Lactulose Liq) 30 ml DAILY PRN PO SEVERE CONSITIPATION 06/15/17 06:30 06/22/17 20:58 Chlorhexidine Gluconate (Peridex 0.12% Liq) 15 ml BID@08,20 MT 06/15/17 20:00 07/12/17 08:00 Pravastatin Sodium (Pravachol) 40 mg HS PO 06/18/17 21:00 07/11/17 19:50 Metoprolol Tartrate (Lopressor) 25 mg Q12HR PO 06/19/17 09:00 07/12/17 10:34 Hydralazine HCl (Apresoline Inj) 10 mg Q4H PRN IV PUSH SBP greater than 160 06/20/17 12:30 07/10/17 20:01 Albuterol Sulfate (Albuterol Neb) 2.5 mg Q2HR NEB PRN NEB dyspnea 06/27/17 09:15 07/11/17 19:52 Labetalol HCl (Trandate Inj) 10 mg Q1HR PRN IV PUSH SBP>160, DBP>90, HR>65 06/27/17 09:15 07/10/17 18:07 Propofol 100 ml @ 2.073 mls/ hr TITRATE PRN IV SEDATION 06/27/17 11:00 07/09/17 13:54 Fentanyl Citrate 250 ml @ 5 mls/hr TITRATE PRN IV SEDATION 06/27/17 11:00 07/06/17 04:21 Artificial Tears (Tears Naturale Opth Soln) 1 drop Q8HR EACH EYE 06/28/17 17:00 07/12/17 05:49 Polyethylene Glycol (Miralax) 17 gm BID PO 06/28/17 21:00 07/09/17 09:59 Metoclopramide HCl (Reglan Inj) 5 mg Q8HR IV PUSH 06/29/17 22:00 07/12/17 05:54 Docusate Sodium (Colace Liq) 100 mg Q12HR PO 06/29/17 21:00 07/12/17 10:35 Sennosides (Senna Liq) 8.8 mg BID PO 06/29/17 21:00 07/12/17 10:35 Folic Acid (Folate) 1 mg DAILY PO 07/04/17 09:15 07/12/17 10:34 Acetaminophen (Tylenol 650 Mg/ 20 ml Liq) 650 mg Q6H PRN PO fever 07/06/17 13:30 07/08/17 15:09 Cefazolin Sodium 1000 mg/Sodium Chloride 100 ml @ 200 mls/hr SENIOR INVESTIGATOR IV 07/10/17 10:30 07/13/17 10:29 07/10/17 14:17 Famotidine (Pepcid) 10 mg BID PEG 07/11/17 21:00 07/12/17 10:34 Levetriacetam (Keppra) 500 mg Q12HR PEG 07/11/17 21:00 07/12/17 10:34 (Bell Mooney) Current Medications Current Medications Sodium Chloride (NS Flush) 2 ml UNSCH PRN IV FLUSH FLUSH AFTER USING IV ACCESS Last administered on 07/02/17at 10:18; Start 06/15/17 at 05:15 Sodium Chloride 500 ml @ 500 mls/hr BOLUS ONCE IV ; Start 06/15/17 at 06:00; Stop 06/15/17 at 06:59; Status DC Nicardipine HCl 25 mg/Sodium Chloride 250 ml @ 50 mls/hr TITRATE PRN IV Blood pressure management Last administered on 06/19/17 06:43; Start 06/15/17 at 06: 15; Stop 06/23/17 at 17:33; Status DC Pravastatin Sodium (Pravachol) 80 mg HS PO Last administered on 06/17/17at 23:23 ; Start 06/15/17 at 21:00; Stop 06/18/17 at 09:30; Status DC Levetriacetam 100 ml @ 400 mls/hr BOLUS ONCE IV Last administered on at 09:43; Start 06/15/17 at 06:30; Stop 06/15/17 at 06:44; Status DC Sodium Chloride 1,000 ml @ 100 mls/hr Q10H IV Last administered on 06/17/17at 07:29; Start 06/15/17 at 06:17; Stop 06/17/17 at 12:42; Status DC Acetaminophen (Tylenol) 650 mg Q6H PRN PO PAIN 1-10 AND/OR FEVER >101F Last administered on 06/23/17at 20:18; Start 06/15/17 at 06:30; Stop 07/06/17 at 13:27 ; Status DC Morphine Sulfate (Morphine Inj) 2 mg Q2H PRN IV PUSH PAIN SCALE 6 TO 10 Last administered on 06/19/17at 08:29; Start 06/15/17 at 06:30; Stop 06/20/17 at 08:25 ; Status DC Famotidine (Pepcid Inj) 10 mg Q12HR IV PUSH Last administered on 06/25/17at 08: 45; Start 06/15/17 at 09:00; Stop 06/25/17 at 16:28; Status DC Ondansetron HCl (Zofran Inj) 4 mg Q6H PRN IV PUSH NAUSEA OR VOMITING Last administered on 07/10/17at 19:44; Start 06/15/17 at 06:30 Albuterol/ Ipratropium (Duoneb Neb) 1 ampule Q4HR NEB PRN INH WHEEZING; Start 06/15/17 at 06:30; Stop 06/27/17 at 09:15; Status DC Miscellaneous Information 1 Q361D XX Last administered on 06/15/17at 06:30; Start 06/15/17 at 06:30 Chlorhexidine Gluconate (Chlorhexidine 2% Cloth) Taper DAILY@04 TOP Last administered on 06/20/17at 04:00; Start 06/16/17 at 04:00; Stop 06/12/18 at 03:59 Chlorhexidine Gluconate (Chlorhexidine 2% Cloth) 3 pack UNSCH PRN TOP HYGIENIC CARE; Start 06/15/17 at 06:30 Senna/Docusate Sodium ([place]-Colace) 1 tab BID PO Last administered on at 08:00; Start 06/15/17 at 09:00; Stop 06/29/17 at 15:16; Status DC Magnesium Hydroxide (Milk Of Magnesia Liq) 30 ml Q12H PRN PO Mild constipation Last administered on 06/22/17at 20:58; Start 06/15/17 at 06:30 Sennosides (Senokot) 17.2 mg Q12H PRN PO Moderate constipation; Start 06/15/17 at 06:30 Bisacodyl (Dulcolax Supp) 10 mg DAILY PRN RECTAL SEVERE CONSITIPATION; Start at 06:30 Lactulose (Lactulose Liq) 30 ml DAILY PRN PO SEVERE CONSITIPATION Last administered on 06/22/17at 20:58; Start 06/15/17 at 06:30 Rocuronium [place] (Zemuron Inj) 100 mg BOLUS ONCE IV Last administered on at 14:34; Start 06/15/17 at 14:00; Stop 06/15/17 at 14:01; Status DC Midazolam HCl (Versed Inj) 5 mg ONCE ONCE IV PUSH Last administered on at 14:35; Start 06/15/17 at 14:00; Stop 06/15/17 at 14:01; Status DC Chlorhexidine Gluconate (Peridex 0.12% Liq) 15 ml BID@08,20 MT Last administered on 07/15/17at 20:25; Start 06/15/17 at 20:00 Propofol 100 ml @ 0 mls/hr TITRATE PRN IV SEDATION; Start 06/15/17 at 14:00; Status UNV Midazolam HCl (Versed Inj) 5 mg STK-MED ONCE .ROUTE ; Start 06/15/17 at 14:07; Stop 06/15/17 at 14:08; Status DC Rocuronium [place] (Zemuron Inj) 50 mg STK-MED ONCE .ROUTE ; Start 06/15/17 at 14:07; Stop 06/15/17 at 14:08; Status DC Propofol 100 ml @ 1.941 mls/ hr TITRATE PRN IV SEDATION Last administered on at 14:41; Start 06/15/17 at 14:45; Stop 06/21/17 at 14:09; Status DC Miscellaneous Information (RASS Change Order) 1 ea ONCE ONCE XX Last administered on 06/15/17at 14:45; Start 06/15/17 at 14:45; Stop 06/15/17 at 14:46 ; Status DC Norepinephrine Bitartrate 4 mg/ Sodium Chloride 250 ml @ 7.5 mls/hr TITRATE PRN IV Maintain MAP > 70 mmHg; Start 06/15/17 at 19:45; Stop 06/15/17 at 21:37; Status DC Norepinephrine Bitartrate 4 mg/ Sodium Chloride 250 ml @ 7.5 mls/hr TITRATE PRN IV Maintain MAP > 70 mmHg Last administered on 06/15/17at 19:00; Start at 21:45; Stop 06/20/17 at 08:11; Status DC Levetriacetam (Keppra) 500 mg Q12HR PO Last administered on 07/09/17at 09:59; Start 06/17/17 at 11:30; Stop 07/09/17 at 21:24; Status DC Potassium Chloride 20 meq/ Lactated Ringer's 1,010 ml @ 42 mls/hr Q24H IV ; Start 06/17/17 at 12:45; Stop 06/17/17 at 13:02; Status DC Potassium Chloride 10 meq/ Lactated Ringer's 505 ml @ 42 mls/hr Q12H2M IV Last administered on 06/19/17at 22:32; Start 06/17/17 at 13:15; Stop 06/20/17 at 08:13; Status DC Pravastatin Sodium (Pravachol) 40 mg HS PO Last administered on 07/15/17at 20:26 ; Start 06/18/17 at 21:00 Potassium Phosphate 15 mmol/ Sodium Chloride 155 ml @ 38.75 mls/ hr ONCE ONCE IV Last administered on 06/19/17at 08:50; Start 06/19/17 at 08:00; Stop at 11:59; Status DC Metoprolol Tartrate (Lopressor) 25 mg Q12HR PO Last administered on 07/15/17at 20:26; Start 06/19/17 at 09:00 Pharmacy Profile Note 0 ml @ 0 mls/hr UNSCH OTHER ; Start 06/20/17 at 08:15; Stop 06/21/17 at 14:09; Status DC Albuterol/ Ipratropium (Duoneb Neb) 1 ampule Q6HR NEB NEB Last administered on 06/24/17at 07:16; Start 06/20/17 at 10:00; Stop 06/24/17 at 09:59; Status DC Vancomycin HCl 1250 mg/Sodium Chloride 262.5 ml @ 262.5 mls/ hr ONCE ONCE IV Last administered on 06/20/17at 13:29; Start 06/20/17 at 12:00; Stop 06/20/17 at 12:59; Status DC Hydralazine HCl (Apresoline Inj) 10 mg Q4H PRN IV PUSH SBP greater than 160 Last administered on 07/15/17at 20:28; Start 06/20/17 at 12:30 Potassium Phosphate 15 mmol/ Sodium Chloride 155 ml @ 38.75 mls/ hr ONCE ONCE IV Last administered on 06/20/17at 17:05; Start 06/20/17 at 13:45; Stop at 17:44; Status DC Furosemide (Lasix Inj) 40 mg ONCE ONCE IV PUSH Last administered on 06/21/17at 08:53; Start 06/21/17 at 08:30; Stop 06/21/17 at 08:31; Status DC Cefazolin Sodium/ Dextrose 50 ml @ 100 mls/hr Q8H IV Last administered on 06/24at 15:02; Start 06/21/17 at 15:00; Stop 06/24/17 at 21:47; Status DC Cefazolin Sodium 2000 mg/Sodium Chloride 120 ml @ 240 mls/hr Q8H IV Last administered on 06/30/17at 06:06; Start 06/24/17 at 23:00; Stop 06/30/17 at 10:37 ; Status DC Famotidine (Pepcid) 10 mg BID PO Last administered on 07/03/17at 08:48; Start at 21:00; Stop 07/03/17 at 20:13; Status DC Chlorhexidine Gluconate (Hibiclens 4% Top Soln) 1 applic HS TOP Last administered on 06/27/17at 05:56; Start 06/26/17 at 21:00; Stop 06/28/17 at 21:01 ; Status DC Acetaminophen 100 ml @ As Directed STK-MED ONCE IV ; Start 06/27/17 at 07:04; Stop 06/27/17 at 07:05; Status DC Artificial Tears (Lacrilube Opht Oint) 3.5 applic STK-MED ONCE .ROUTE ; Start at 07:05; Stop 06/27/17 at 07:06; Status DC Lidocaine/ Epinephrine (Xylocaine-Epi 1%-1:100,000 Inj) 30 ml STK-MED ONCE .ROUTE ; Start 06/27/17 at 07:32; Stop 06/27/17 at 07:33; Status DC Thrombin (Thrombin Top Soln) 10,000 units STK-MED ONCE .ROUTE ; Start 06/27/17 at 07:32; Stop 06/27/17 at 07:33; Status DC Gelatin (Gelfoam 100 Top) 1 foam STK-MED ONCE .ROUTE ; Start 06/27/17 at 07:32; Stop 06/27/17 at 07:33; Status DC Bacitracin (Baciguent Oint) 15 applic STK-MED ONCE .ROUTE ; Start 06/27/17 at 07 :32; Stop 06/27/17 at 07:33; Status DC Gentamicin Sulfate (Gentamicin Inj) 240 mg STK-MED ONCE .ROUTE ; Start 06/27/17 at 07:33; Stop 06/27/17 at 07:34; Status DC Albuterol Sulfate (Albuterol Neb) 2.5 mg Q2HR NEB PRN NEB dyspnea Last administered on 07/11/17at 19:52; Start 06/27/17 at 09:15 Labetalol HCl (Trandate Inj) 10 mg Q1HR PRN IV PUSH SBP>160, DBP>90, HR>65 Last administered on 07/10/17at 18:07; Start 06/27/17 at 09:15 Polyethylene Glycol (Miralax) 17 gm ONCE ONCE PO ; Start 06/27/17 at 09:15; Stop 06/27/17 at 09:19; Status DC Polyethylene Glycol (Miralax) 17 gm DAILY PO Last administered on 06/28/17at 08: 31; Start 06/28/17 at 09:00; Stop 06/28/17 at 15:18; Status DC Glycerin (Glycerin Adult Supp) 2 gm ONCE ONCE RECTAL ; Start 06/27/17 at 09:15 ; Stop 06/27/17 at 09:20; Status DC Sodium Chloride (Sodium Chloride) 1 gm ONCE ONCE PO ; Start 06/27/17 at 09:45; Stop 06/27/17 at 10:35; Status DC Propofol (Diprivan 500 Mg/ 50 ml Inj) 100 mg ONCE ONCE IV Last administered on 06/27/17at 11:10; Start 06/27/17 at 11:00; Stop 06/27/17 at 11:01; Status DC Chlorhexidine Gluconate (Peridex 0.12% Liq) 15 ml BID@08,20 MT ; Start 06/27/17 at 20:00; Status Cancel Propofol 100 ml @ 2.073 mls/ hr TITRATE PRN IV SEDATION Last administered on at 13:54; Start 06/27/17 at 11:00 Fentanyl Citrate 250 ml @ 5 mls/hr TITRATE PRN IV SEDATION Last administered on 07/06/17at 04:21; Start 06/27/17 at 11:00 Lidocaine HCl (Xylocaine 2% Inj) 100 mg ONCE ONCE IV PUSH Last administered on 06/27/17at 13:34; Start 06/27/17 at 11:00; Stop 06/27/17 at 11:01; Status DC Etomidate (Amidate Inj) 40 mg ONCE ONCE IV PUSH Last administered on at 13:34; Start 06/27/17 at 11:00; Stop 06/27/17 at 11:01; Status DC Rocuronium [place] (Zemuron Inj) 100 mg BOLUS ONCE IV Last administered on at 13:35; Start 06/27/17 at 11:30; Stop 06/27/17 at 11:31; Status DC Lidocaine/ Epinephrine (Xylocaine-Epi 1%-1:100,000 Inj) 30 ml STK-MED ONCE .ROUTE ; Start 06/27/17 at 10:50; Stop 06/27/17 at 10:51; Status DC Rocuronium [place] (Zemuron Inj) 100 mg STK-MED ONCE .ROUTE ; Start 06/27/17 at 10:51; Stop 06/27/17 at 10:52; Status DC Artificial Tears (Tears Naturale Opth Soln) 1 drop Q8HR EACH EYE Last administered on 07/15/17 14:00; Start 06/28/17 at 17:00 Polyethylene Glycol (Miralax) 17 gm BID PO Last administered on 07/15/17 08:58 ; Start 06/28/17 at 21:00 Lactulose (Lactulose Liq) 30 ml QID PO Last administered on 07/01/17 13:08; Start 06/28/17 at 18:00; Stop 07/01/17 at 14:12; Status DC Mineral Oil (Kondremul Liq) 30 ml ONCE ONCE PO Last administered on 06/28/17 16:54; Start 06/28/17 at 17:00; Stop 06/28/17 at 17:01; Status DC Glycerin (Glycerin Adult Supp) 2 gm ONCE ONCE RECTAL Last administered on 06/28 16:54; Start 06/28/17 at 17:00; Stop 06/28/17 at 17:01; Status DC Methylnaltrexone [place] (Relistor Inj) 12 mg ONCE ONCE SQ Last administered on 06/28/17at 17:20; Start 06/28/17 at 17:00; Stop 06/28/17 at 17:01; Status DC Metoclopramide HCl (Reglan Inj) 5 mg Q8HR IV PUSH Last administered on 15:42; Start 06/29/17 at 22:00 Methylnaltrexone [place] (Relistor Inj) 12 mg ONCE ONCE SQ Last administered on 06/29/17at 17:14; Start 06/29/17 at 15:15; Stop 06/29/17 at 15:30; Status DC Docusate Sodium (Colace Liq) 100 mg Q12HR PO Last administered on 4/15/18at 08: 56; Start 06/29/17 at 21:00 Sennosides (Senna Liq) 8.8 mg BID PO Last administered on 07/15/17at 08:57; Start 06/29/17 at 21:00 Mineral Oil (Kondremul Liq) 30 ml ONCE ONCE PO Last administered on 06/29/17at 15:15; Start 06/29/17 at 15:15; Stop 06/29/17 at 15:30; Status DC Glycerin (Glycerin Adult Supp) 2 gm ONCE ONCE RECTAL Last administered on 06/29at 15:15; Start 06/29/17 at 15:15; Stop 06/29/17 at 15:30; Status DC Magnesium Citrate (Citroma Liq) 300 ml ONCE ONCE PO ; Start 06/30/17 at 10:45; Stop 06/30/17 at 10:49; Status DC Mineral Oil (Fleet Mineral Oil Enema) 118 ml ONCE ONCE RECTAL ; Start 06/30/17 at 10:45; Stop 06/30/17 at 10:49; Status DC Mineral Oil (Kondremul Liq) 30 ml ONCE ONCE PO ; Start 06/30/17 at 10:45; Stop 06/30/17 at 10:49; Status DC Sodium Phosphate 30 mmol/Sodium Chloride 260 ml @ 43.333 mls/ hr ONCE ONCE IV ; Start 06/30/17 at 12:00; Stop 06/30/17 at 17:59; Status DC Magnesium Sulfate/ Dextrose 100 ml @ 100 mls/hr Q1H IV Last administered on at 11:45; Start 06/30/17 at 10:45; Stop 06/30/17 at 12:44; Status DC Piperacillin Sod/ Tazobactam Sod 100 ml @ 200 mls/hr Q6H IV Last administered on 07/07/17at 09:59; Start 06/30/17 at 11:00; Stop 07/07/17 at 11:00; Status DC Albuterol/ Ipratropium (Duoneb Neb) 1 ampule Q6HR WHILE AWAKE NEB NEB Last administered on 07/05/17at 13:13; Start 07/01/17 at 20:00; Stop 07/05/17 at 14:07; Status DC Potassium Chloride (KCl Powder) 20 meq ONCE ONCE PO ; Start 07/02/17 at 22:15; Stop 07/02/17 at 22:16; Status DC Famotidine (Pepcid) 20 mg BID PO Last administered on 07/09/17at 09:59; Start 07/03/17 at 21:00; Stop 07/10/17 at 14:29; Status DC Folic Acid (Folate) 1 mg DAILY PO Last administered on 07/15/17at 08:58; Start 07/04/17 at 09:15 Albuterol/ Ipratropium (Duoneb Neb) 1 ampule Q6HR WHILE AWAKE NEB NEB Last administered on 07/06/17at 13:06; Start 07/05/17 at 14:00; Stop 07/06/17 at 13:27; Status DC Albuterol/ Ipratropium (Duoneb Neb) 1 ampule Q6HR ALT NEB NEB ; Start 07/06/17 at 19:00; Stop 07/06/17 at 19:00; Status DC Acetaminophen (Tylenol 650 Mg/ 20 ml Liq) 650 mg Q6H PRN PO fever Last administered on 07/08/17at 15:09; Start 07/06/17 at 13:30 Albuterol/ Ipratropium (Duoneb Neb) 1 ampule Q6HR NEB NEB Last administered on 07/10/17at 20:29; Start 07/06/17 at 22:00; Stop 07/10/17 at 21:59; Status DC Midazolam HCl (Versed Inj) 5 mg ONCE ONCE IV PUSH Last administered on at 14:33; Start 07/09/17 at 14:00; Stop 07/09/17 at 14:01; Status DC Rocuronium [place] (Zemuron Inj) 50 mg BOLUS ONCE IV Last administered on at 14:30; Start 07/09/17 at 14:00; Stop 07/09/17 at 14:01; Status DC Fentanyl Citrate (fentaNYL INJ) 200 mcg ONCE ONCE IV PUSH Last administered on 07/09/17at 14:31; Start 07/09/17 at 14:00; Stop 07/09/17 at 14:01; Status DC Norepinephrine Bitartrate 250 ml @ As Directed STK-MED ONCE IV ; Start 07/09/17 at 15:47; Stop 07/09/17 at 15:48; Status DC Levetriacetam 500 mg/Sodium Chloride 105 ml @ 420 mls/hr Q12HR IV Last administered on 07/11/17at 08:35; Start 07/09/17 at 21:30; Stop 07/11/17 at 17:51 ; Status DC Cefazolin Sodium 1000 mg/Sodium Chloride 100 ml @ 200 mls/hr SENIOR INVESTIGATOR IV Last administered on 07/10/17at 14:17; Start 07/10/17 at 10:30; Stop 07/12/17 at 20:27 ; Status DC Famotidine (Pepcid) 10 mg BID PO ; Start 07/10/17 at 21:00; Stop 07/10/17 at 21: 00; Status DC Pantoprazole Sodium (Protonix) 20 mg DAILY PO ; Start 07/10/17 at 17:00; Stop at 11:19; Status DC Propofol (Diprivan 200 Mg/20 ml Inj) 200 mg STK-MED ONCE IV ; Start 07/10/17 at 12:00; Stop 07/11/17 at 10:48; Status DC Phenylephrine HCl (Neosynephrine/ NS 1000 Mcg/10ml Syr) 1,000 mcg STK-MED ONCE IV ; Start 07/10/17 at 12:00; Stop 07/11/17 at 10:48; Status DC Famotidine (Pepcid) 10 mg BID PEG Last administered on 07/15/17at 20:26; Start 07/11/17 at 21:00 Levetriacetam (Keppra) 500 mg Q12HR PEG Last administered on 07/15/17at 20:26; Start 07/11/17 at 21:00 Sodium Chloride (Sodium Chloride) 1 gm Q12HR PO Last administered on 07/15/17at 20:26; Start 07/12/17 at 13:15 Sodium Chloride 1,000 ml @ 100 mls/hr Q10H IV Last administered on 07/13/17at 05:45; Start 07/12/17 at 19:45; Stop 07/13/17 at 17:41; Status DC Cefazolin Sodium/ Dextrose 50 ml @ 150 mls/hr SENIOR [employer] IV Last administered on 07/13/17at 14:53; Start 07/12/17 at 19:45 Vancomycin HCl 1000 mg/Sodium Chloride 250 ml @ 250 mls/hr [employer]IOR INVESTIGATOR IV ; Start 07/12/17 at 19:45 Chlorhexidine Gluconate (Hibiclens 4% Top Soln) 1 applic HS TOP Last administered on 07/13/17at 09:00; Start 07/12/17 at 21:00; Stop 07/13/17 at 21:01 ; Status DC Acetaminophen 100 ml @ As Directed STK-MED ONCE IV ; Start 07/13/17 at 12:10; Stop 07/13/17 at 12:11; Status DC Artificial Tears (Lacrilube Opht Oint) 3.5 applic STK-MED ONCE .ROUTE ; Start at 12:10; Stop 07/13/17 at 12:11; Status DC Lidocaine/ Epinephrine (Xylocaine-Epi 1%-1:100,000 Inj) 30 ml STK-MED ONCE .ROUTE Last administered on 07/13/17at 14:50; Start 07/13/17 at 12:58; Stop at 12:59; Status DC Thrombin (Thrombin Top Soln) 5,000 units STK-MED ONCE .ROUTE Last administered on 07/13/17at 14:50; Start 07/13/17 at 12:58; Stop 07/13/17 at 12:59; Status DC Gelatin (Gelfoam 100 Top) 1 foam STK-MED ONCE .ROUTE Last administered on at 14:50; Start 07/13/17 at 12:58; Stop 07/13/17 at 12:59; Status DC Bacitracin (Baciguent Oint) 15 applic STK-MED ONCE .ROUTE Last administered on 07/13/17at 14:50; Start 07/13/17 at 12:58; Stop 07/13/17 at 12:59; Status DC Gentamicin Sulfate (Gentamicin Inj) 240 mg STK-MED ONCE .ROUTE Last administered on 07/13/17at 14:50; Start 07/13/17 at 12:58; Stop 07/13/17 at 12:59 ; Status DC Fentanyl Citrate (fentaNYL INJ) 100 mcg STK-MED ONCE .ROUTE ; Start 07/13/17 at 16:36; Stop 07/13/17 at 16:37; Status DC Potassium Chloride/Sodium Chloride 1,000 ml @ 100 mls/hr Q10H IV Last administered on 07/14/17at 02:47; Start 07/13/17 at 16:38; Stop 07/14/17 at 13:01 ; Status DC Cefazolin Sodium/ Dextrose 50 ml @ 100 mls/hr Q8H IV Last administered on 07/14at 14:00; Start 07/13/17 at 22:00; Stop 07/14/17 at 14:29; Status DC Pantoprazole Sodium (Protonix Inj) 40 mg DAILY IVP Last administered on at 08:56; Start 07/14/17 at 09:00 Acetaminophen/ Hydrocodone Bitart ([place] 10-325 Mg) 1 tab Q4H PRN PO PAIN SCALE 1 TO 5; Start 07/13/17 at 16:45 Acetaminophen/ Hydrocodone Bitart ([place] 10-325 Mg) 2 tab Q4H PRN PO PAIN SCALE 6 TO 10; Start 07/13/17 at 16:45 Morphine Sulfate (Morphine Inj) 2 mg Q2H PRN IV PUSH PAIN SCALE 1 TO 6; Start 07/13/17 at 16:45 Morphine Sulfate (Morphine Inj) 4 mg Q2H PRN IV PUSH PAIN SCALE 7 TO 10; Start 07/13/17 at 16:45 Acetaminophen (Tylenol) 650 mg Q4H PRN PO TEMPERATURE > 101.5 F; Start at 16:45 Miscellaneous Information ALL NURSING DEPARTME... UNSCH PRN .XX SEE LABEL COMMENTS; Start 07/13/17 at 16:08; Stop 07/14/17 at 16:07; Status DC (Andre Nixon MD) Medical Decision Making MDM Remarks 77 y/o female with large hemorrhagic stroke, she had evidence of hydrocephalus, she underwent placement of ventriculostomy drain 06/15/17 due to worsening mental status with improvement of mental status pt did not tolerate clamping of ventriculostomy drain, ventriculostomy drain replaced 06/27/17, DECORATING INSPECTOR shunt held due to new right side stroke, rechallenging ventriculostomy, ventriculostomy drain clamped, follow-up CT brain 411 with persistent ventriculomegaly, EVD drain clamped for 48 hours, appearing more drowsy on examination 07/12/17 (Bell Mooney) Plan Plan Remarks reopen drain today to 5 cm H20 to assess if mental status improves, for CSF cultures if appearing more awake with EVD open will require a DECORATING INSPECTOR shunt hold tube feeds tonight for poss DECORATING INSPECTOR shunt placement tomorrow (Bell Mooney) Attending Statement As above She previously did not tolerate clamping of ventriculostomy drain, ventriculostomy drain replaced 06/27/17, DECORATING INSPECTOR shunt held due to new right side stroke, rechallenging ventriculostomy, ventriculostomy drain clamped, follow-up CT brain 411 with persistent ventriculomegaly, Maintain her ventriculostomy clamped Monitor closely her neuro status Discussed with her family The exam, history, and the medical decision-making described in the above note were completed with the assistance of the mid-level provider. I reviewed and agree with the findings presented. I attest that I had a [id number] encounter with the patient on the same day, and personally performed and documented my assessment and findings in the medical record. (Andre Nixon MD) Bell Mooney Jul 12, 2017 12:11 Andre Nixon MD Jul 15, 2017 21:11
--- NOTE | 2017-07-12 13:32 | HHI.CCPN ---
Subjective Remarks/Hospital Course Severely dehydrated, elderly woman presents confused to [facility] ED with hypertensive urgency and semi-acute right hemispheric parenchymal brain hemorrhage. Arrived from [facility] on cardene gtt and aphasic. Handness not determined yet. Unable to get ROS. No anticoagulants. INR normal. 06/16: Flaccid left side. Minimal eye opening. Moves right arm and leg to stimulation. Breathes over vent. ICP control, EVD draining well. 06/17: Moving both arms, right much stronger. More alert but episodic apnea spells. 06/18: No events over the night. Patient remains intubated, off sedation. She is currently on pressure support, 01/04, doing well. Awake, following commands. Son present at bedside. T-max of 99.6. I/O 250/1545. 06/19: No events over the night. Patient did well yesterday on pressure support , but was not able to be extubated secondary to no cuff leak. She remains on Cardene currently at 9.5 mg/h. Afebrile with a T-max of 99.4. Negative fluid balance. 06/20: Patient did well over the night. T-max of 100.2. ICP of 4. Thick sputum secretions sent yesterday for culture now growing Staphylococcus. Patient is awake, off sedation following some commands. Off Cardene drip since yesterday. 06/21: Patient did well postextubation and over the night. T-max of 100 yesterday morning. Very good urine output. Patient awake following commands, denying any pain. 06/22: No events over the night. Patient doing well. She is awake and alert, denies headache, nausea, vomiting. No chest pain, no dyspnea, no palpitations. On 2 L nasal cannula. Afebrile over the last 24 hours. Diuresed well post Lasix and she is on negative fluid balance since admission. 06/23: Patient awake, feels better, denies chest pain, shortness of breath, palpitations, headache. Still has productive cough. Afebrile, urine output is adequate. 06/24: No events over the night. Patient afebrile over the last 24 hours. She remains awake, resting in bed, denies any complaints. Sons at bedside. 06/25: Resting comfortably. Drowsy, arousable. EVD at 15cm, drained 60 cc overnight. 06/26: Resting comfortably. Awake and alert. EVD in place drain 10 cc overnight however has some clear fluid draining around ventriculostomy site. Dr. Nixon planning FURNITURE INSPECTOR shunt for tomorrow. 06/27: Afebrile. Less arousable today. Eyes are closed. Subjective left-sided weakness. EVD in place at 20 cm. 4 cc overnight. On cefazolin with clear fluid draining from ventriculostomy site. MRI brain currently pending. 06/28: Afebrile. Intubated yesterday secondary to altered mental status/ aspiration. Arousable and follows commands in the ventilator. 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 Echocardiogram pending. Possibly some right carotid stenosis on carotid ultrasound which does not correlate to this current acute left MCA CVA 06/29: Afebrile. More arousable today. Spontaneously moving left upper extremity. Opens eyes to voice. Not following commands. Tolerating tube feeds at goal. 06/30: Resting in bed in no acute distress. More arousable today. Spontaneously moving left upper extremity. Opens eyes to voice. No bowel movement 07/01: T-max 99.8. Currently 99.3. Opens eyes to voice. Squeezes bilateral hands right greater than left. Not following commands however. Tolerating spontaneous breathing trial 07/02: T-max 100.1. Currently afebrile. Did not tolerate CPAP trial today. Slightly more responsive today briefly follow commands right greater than left. Tolerating tube feeding. 07/03: Tolerating CPAP trial today. T-max 100.1. Currently 98.5. 2 bowel movements. More arousable and alert today 07/04: on PSV 10/5/40%. more awake today. follows commands. 07/05: continues to be more awake and alert, but also continues to fail CPAP trials. becomes tachypneic and distress. Subjective 07/06: Afebrile. Arousable and follows commands. Neurologically stable. Tolerating tube feeding. On PSV trial since 1050 but currently going to back up mode secondary to apnea. 07/07: Will trial SBTs daily, watch for apnea periods. 07/08: Fentanyl off and she is a little more active today. She may be blind. Unable to extubate today. 07/09: Remains intubated off sedation, ischial spontaneously open moves extremities spontaneously but intermittently. Do not follow commands. Too weak to protect airway successfully. Vent day will need trach and PEG, Dr. Nixon agrees. Will discuss with son. 07/10: Patient underwent percutaneous tracheostomy yesterday tolerated well. EVD raised to 20 yesterday tolerating well. GI consulted for PEG placement. Start weaning trials 07/11: Tolerating T piece, sleepy but wakes up easily following commands today bilateral upper and lower extremities. EVD remains clamped, CT from yesterday persistent hydrocephalus unchanged on my review 07/12: Patient remains on T piece since a.m., slightly more lethargic today but wakes up easily and follows commands. Per neurosurgery plan reopened EV drain today to 5 cm H20, if mentation improves and for FURNITURE INSPECTOR shunt tomorrow. Also check UA, CBC CMP and chest x-ray. CSF Gram stain and culture sent. NACL tab started Objective Vital Signs Date Time Temp Pulse Resp B/P (MAP) Pulse Ox O2 Delivery O2 Flow Rate FiO2 07/12/17 12:00 85 07/12/17 12:00 98.3 27 156/71 (99) 97 07/12/17 09:00 Trach Collar 5.00 40 Intake and Output 07/12/17 07/12/17 07/13/17 08:00 16:00 00:00 Intake Total 611 ml Output Total 230.0 ml Balance 381.0 ml Result Diagram: 07/11/17 0345 07/11/17 0345 Imaging Last Impressions Chest X-Ray 07/02/17 06 Signed Impressions: Service Date/Time: Sunday, July 02, 2017 04:23 - CONCLUSION: No significant change Harsha Wen MD Abdomen X-Ray 07/01/17 0600 Signed Impressions: Service Date/Time: Saturday, July 01, 2017 04:18 - CONCLUSION: 1. Nonspecific bowel gas pattern without evidence for obstruction or free air. Ivan Bahena MD Carotid Artery Ultrasound 06/27/17 0000 Signed Impressions: Service Date/Time: Tuesday, June 27, 2017 12:59 - CONCLUSION: 1. Moderate diffuse atherosclerotic plaquing at both carotid bifurcations. 2. Mild elevated velocity in the proximal right internal carotid artery. If clinically indicated , recommend CTA of the carotid arteries for further evaluation. 3. No definite high grade or hemodynamically significant stenosis is demonstrated. David Moore MD Brain MRI 06/27/17 0000 Signed Impressions: Service Date/Time: Tuesday, June 27, 2017 09:23 - CONCLUSION: 1. New development of a nonhemorrhagic acute infarct involving the left occipital lobe. 2. Otherwise, the rest of the exam is stable compared to the prior MRI. David Moore MD Head CT 06/26/17 0000 Signed Impressions: Service Date/Time: Monday, June 26, 2017 10:08 - CONCLUSION: 1. Continued evolution of right cerebral hematoma with slightly increasing surrounding edema. 2. No new hemorrhage identified. 3. Continued ventricular dilatation with no further decompression following placement of ventriculostomy. 4. No significant shift of midline structures. Rene Lomeli MD Head Magnetic Resonance Angiography 06/15/17 0000 Signed Impressions: Service Date/Time: Thursday, June 15, 2017 11:52 - CONCLUSION: MRA within normal limits. There is a parenchymal hemorrhage in the posterior right temporal lobe with intraventricular extension. Ivan Bahena MD Objective Remarks General - 77-year-old female, on TP, since am HEENT - pupils are equal, about 3 mm bilaterally, neck is supple. Left frontal Russell hole with placement of a ventriculostomy catheter, now reopened to 5 cm water Neck: New trach in place with no significant bleeding CV -RRR. sinus, no JVD. Chest - Equal chest rise. unlabored, clear. Abdomen - soft, nontender, not distended, no guarding. bs active. Extremities -warm, 1+ edema, + peripheral pulses, well perfused. Neuro: Opens eyes, follows commands bilateral upper and lower extremities. Slightly more lethargic today. EVD reopened to 5 cm of water A/P Problem List: (1) Hemorrhagic stroke ICD Code: I61.9 - Nontraumatic intracerebral hemorrhage, unspecified Status: Acute (2) Hypertensive urgency ICD Code: I16.0 - Hypertensive urgency Status: Acute (3) Encephalopathy, metabolic ICD Code: G93.41 - Metabolic encephalopathy Status: Acute (4) CLAYTON (acute kidney injury) ICD Code: N17.9 - Acute kidney failure, unspecified Status: Acute Assessment and Plan Neuro/Psych: Right posterior temporal/occipital/parietal intra-axial hematoma Left MCA posterior temporal occipital CVA Right complex partial seizure Wernicke aphasia Acute encephalopathy Following commands. Ventric was clamped, now with increased lethargy it was reopened to 5 cm water If there is improvement in mental status with reopening EVD, N/S may do FURNITURE INSPECTOR shunt in am Ventriculostomy placed 06/27-neurosurgery managing CT brain 06/25 revealed a right occipital parietal intra-axial hematoma with mild surrounding edema. MRI brain revealed a left MCA CVA involving the left posterior temporal occipital region MRI brain admission revealed right posterior temporal hemorrhage with ventricular extension MRA brain negative for aneurysm CT head 07/10/17: Continued evolution of right occipital hemorrhage, IVH Carotid Dopplers with possible right carotid stenosis. Does not explain acute left MCA CVA. On levetiracetam 500 mg twice daily for seizure. Acetaminophen 650 mg p.o. every 6 hours as needed fever/pain Followed by Dr. Crowell neurology CV: Hypertensive emergency Dyslipidemia Currently on metoprolol 25 mg by mouth twice daily Currently on pravastatin 40 mg daily/on atorvastatin 40 mg daily at home Holding aspirin 81 mg daily in light of acute hemorrhage 06/29 echo - Normal left ventricular size. Mild concentric LVH. The left ventricular systolic function is hyperdynamic with an estimated ejection fraction in the range of 65-70%. Trace TR. The estimated PASP is 43 mmHg. Resp: Acute hypoxic and hypercarbic respiratory failure secondary to aspiration Reintubated secondary to new acute CVA with aspiration. S/p trach 07/09/17 TP up to 12 hours and PSV 10/5 at night Ventilator bundle. Albuterol/ipratropium aerosols every 6 hours alternate nebs with albuterol aerosols every 2 hours as needed dyspnea GI: Hypoalbuminemia Constipation Jevity 1.5 at 50 cc an hour at goal, s/p PEG tube placement Famotidine 20 mg twice daily for GI prophylaxis Docusate sodium/senna 1 tablet twice daily for bowel regimen. Continue polyethylene glycol 17 g twice daily, : no indication for kent catheter. Endo: Sliding scale insulin if indicated to maintain euglycemia Renal: Creatinine currently within normal limits Monitor urine output Accurate I's and O's Heme: Normocytic anemia Monitor CBC daily. Follow trend Hypercoagulable workup ID: Serratia plymithica, MSSA and Klebsiella pneumonia Completed cefazolin 2 g IV every 8 hours day #7 -> done Switch to penicillin/tazobactam day #7 -> done Pertinent cultures 06/30 -sputum -Serratia Plymithica/Klebsiella pneumonia 06/29 -blood cultures 2 -no growth 06/18 -staph aureus/Klebsiella pneumonia sputum 07/12/17 UA and csf culture send FEN: Replace electrolytes as clinically indicated MSK: Osteoarthritis/osteoporosis Holding alendronate 70 mg weekly. Resume clinically indicated Access -Utilize peripheral IV. Central line if indicated Prophylaxis -GI -famotidine -DVT -SCD/holding pharmacological prophylaxis in light of cerebral hematoma. Initiate when okay with neurosurgery Overall impression: Stable hemodynamics. Tolerating TP today. s/p tracheostomy . Need LTAC FURNITURE INSPECTOR shunt placement if decided Level 3 Hansel Mcleod MD Jul 12, 2017 13:32
[2017-07-12] MEDS: SODIUM CHLORIDE 1 GRAM TAB PO SCH ×2 (14:37→21:06)
[2017-07-12 14:58] LABS: AMORPHOUS SEDIMENT, URINE RARE; BACTERIA, URINE RARE /hpf; BILIRUBIN, URINE NEG (NEG); BLOOD, URINE MOD (NEG); GLUCOSE,URINE NEG (NEG); HYALINE CAST, URINE 2 /lpf (RARE); KETONE, URINE NEG (NEG); MUCUS URINE FEW /lpf (OCC); NITRITE,URINE NEG (NEG); PH, URINE 5.5 (5.0-8.5); SQUAMOUS EPITHELIAL CELL URINE 1 /hpf (0-5); URINE COLOR YELLOW (YELLW/STRAW); URINE LEUKOCYTE ESTERASE MOD (NEG)
[2017-07-12] MEDS ORDERED: ceFAZolin 2 GM PREMIX 50 ML IV SCH (19:45)
[2017-07-12] MEDS ORDERED: VANCOMYCIN INJ 1,000 MG in SODIUM CHLOR 0.9% 250 ML INJ 250 ML IV SCH (19:45)
[2017-07-12] MEDS: CHLORHEXIDINE GLUCONATE 4% SOLN 120 ML BTL TOP SCH (21:00)
[2017-07-12] MEDS: SODIUM CHLOR 0.9% 1000 ML INJ 1,000 ML IV SCH (21:05)
[2017-07-12] MEDS: PRAVASTATIN SOD 40 MG TAB PO SCH (21:06)
[2017-07-13] VITALS (15 sets, daily range): BP systolic 111–171; BP diastolic 56–84; PULSE 67–87; RESP 20–25; TEMP 97.8–99.6; O2SAT 95–100
[2017-07-13] MEDS: hydrALAZINE HCL 20 MG/ML VIAL IV PUSH PRN ×2 (03:28→18:00)
[2017-07-13] MEDS: CHLORHEXIDINE GLUCONATE 2 % 1 PACK (2 CLOTHS) TOP SCH (03:47)
--- NOTE | 2017-07-13 04:54 | RADRPT ---
EXAM DATE/TIME: 07/13/2017 03:37 [facility] COMPARISON: CHEST SINGLE AP, July 09, 2017, 16:34. INDICATIONS : Shortness of breath. MEDICAL HISTORY : Hypertension. CVA. SURGICAL HISTORY : None. ENCOUNTER: Subsequent ACUITY: 1 month PAIN SCORE: Non-responsive. LOCATION: chest FINDINGS: Tracheostomy is stable. There has been slight interval improvement in aeration with clearance of basi lar infiltrates. Mild perihilar parenchymal opacities persist. Cardiac contour is grossly unchanged. CONCLUSION: Improving aeration Harsha Wen MD on July 13, 2017 at 4:50 Board Certified Radiologist. This report was verified electronically.
[2017-07-13] MEDS: ARTIFICIAL TEARS OPTH SOLN 15 ML BTL EACH EYE SCH ×3 (05:10→22:00)
[2017-07-13] MEDS: SODIUM CHLOR 0.9% 1000 ML INJ 1,000 ML IV SCH ×2 (05:45→15:45)
[2017-07-13 05:47] LABS: BASOPHIL # 0.1 TH/MM3 (0-0.2); BASOPHIL % 0.6 % (0.0-2.0); EOSINOPHIL # 0.1 TH/MM3 (0-0.4); EOSINOPHIL % 0.4 % (0.0-4.0); HEMATOCRIT 24.1 % (35.0-46.0); HEMOGLOBIN 8.1 GM/DL (11.6-15.3); LYMPH % 13.6 % (9.0-44.0); LYMPHOCYTE # 2.4 TH/MM3 (1.0-4.8); MEAN CELL VOLUME 90.1 FL (80.0-100.0); MEAN CORPUSCULAR HEMOGLOBIN 30.2 PG (27.0-34.0); MEAN CORPUSCULAR HGB CONC 33.5 % (32.0-36.0); MEAN PLATELET VOLUME 8.6 FL (7.0-11.0); MONO % 10.6 % (0.0-8.0); MONOCYTE # 1.8 TH/MM3 (0-0.9); NEUT % 74.8 % (16.0-70.0); PLATELET COUNT 295 TH/MM3 (150-450); RED BLOOD COUNT 2.68 MIL/MM3 (4.00-5.30); RED CELL DISTRIBUTION WIDTH 14.8 % (11.6-17.2); WHITE BLOOD COUNT 17.4 TH/MM3 (4.0-11.0)
[2017-07-13 05:52] LABS: ALBUMIN 1.8 GM/DL (3.4-5.0); ALT (GPT) 27 U/L (10-53); AST (GOT) 61 U/L (15-37); BICARBONATE 24.9 MEQ/L (21.0-32.0); BLOOD UREA NITROGEN 22 MG/DL (7-18); CALCIUM 8.2 MG/DL (8.5-10.1); CHLORIDE 108 MEQ/L (98-107); CREATININE 0.64 MG/DL (0.50-1.00); GLOMERULAR FILTRATION RATE 90 ML/MIN (>89); GLUCOSE,RANDOM 112 MG/DL (74-106); MAGNESIUM 1.7 MG/DL (1.5-2.5); SODIUM (NA) 141 MEQ/L (136-145)
[2017-07-13 05:54] LABS: ALKALINE PHOSPHATASE 214 U/L (45-117); TOTAL BILIRUBIN ADULT 0.6 MG/DL (0.2-1.0); TOTAL PROTEIN 6.7 GM/DL (6.4-8.2)
[2017-07-13] MEDS: METOCLOPRAMIDE HCL 10 MG/2 ML VIAL IV PUSH SCH ×3 (06:00→22:16)
[2017-07-13] MEDS: CHLORHEXIDINE 0.12% (ORAL KIT) 15 ML CUP MT SCH ×2 (08:00→20:00)
[2017-07-13] MEDS: METOPROLOL TARTRATE 25 MG TAB PO SCH ×2 (08:37→22:16)
[2017-07-13] MEDS: DOCUSATE SODIUM 100 MG/10 ML UDC PO SCH ×2 (08:37→22:15)
[2017-07-13] MEDS: SENNOSIDES SYRUP 8.8 MG/5 ML CUP PO SCH ×2 (08:37→22:15)
[2017-07-13] MEDS: FOLIC ACID 1 MG TAB PO SCH (08:37)
[2017-07-13] MEDS: POLYETHYLENE GLYCOL 17 GM PKG PO SCH ×2 (08:37→21:00)
[2017-07-13] MEDS: levETIRAcetam 500 MG TAB PEG SCH ×2 (08:37→22:15)
[2017-07-13] MEDS: FAMOTIDINE 20 MG TAB PEG SCH ×2 (08:37→22:15)
[2017-07-13] MEDS: SODIUM CHLORIDE 1 GRAM TAB PO SCH ×2 (08:37→22:15)
[2017-07-13] MEDS: CHLORHEXIDINE GLUCONATE 4% SOLN 120 ML BTL TOP SCH (09:00)
--- NOTE | 2017-07-13 11:17 | HHI.NSPN ---
(Bell Mooney) Note Status Status: Progress Note (Bell Mooney) Interval History Interval History 77 year old female with large hemorrhage stroke with hydrocephalus, worsening mental status, patient became severely obtunded difficult to arouse, she underwent placement of ventriculostomy drain 06/15/1706/16: ventriculostomy draining well, intubated, opening eyes and moving right side spontaneously. 06/18: ventriculostomy draining well, remains intubated, opens eyes, tracks, moves right side, stable left paresis 06/19: ventriculostomy draining well, CSF still bloody, dark red. opens eyes and moves right side spontaneously 06/20: ventriculostomy draining well, still gross bloody CSF, intubated, but opens eyes and gave thumbs up to command 06/25: Awake, ventriculostomy draining, drain raised to 15 cm of water over the weekend with stable ICPs. 06/26: EVD raised to 20 cm H20 yesterday, ICPs remains stable overnight, however appears more lethargic today, minimally opens eyes but falls back asleep. 06/27: MRI Brain this morning with new acute nonhemorrhagic left occipital infarct. 06/28: left ventriculostomy draining well, intubated and sedated. 07/02: ventriculostomy draining well, remains intubated. ICPs low. 07/03: ICPs stable overnight, intubated, no sedatives, awake, following simple commands. ventriculostomy draining well. 07/04: remains awake, alert, follows commands. still intubated. ventriculostomy draining well, ICPs controlled overnight. 07/05: continues to be intubated, mildly sedated due to vent restlessness. ventriculostomy continues to drain well, ICPs stable. 07/06: remains intubated, CPAP trials continues. no change in neuro exam. EVD draining well. 07/09: ventriculostomy drain increased to 15 cm H20, awake, ICPs stable. 07/11: Ventriculostomy drain clamped overnight, follow-up CT brain this morning completed. Nursing reports patient at times alert, at times becomes drowsy and lethargic. Stable ICPs. 07/12: appearing more sleepier this morning. ICPs continues to be controlled. 07/13: For BOBJ DEVELOPER shunt placement today, EVD clamp (Bell Mooney) Labs, Micro, & Vital Signs Results Date Time Temp Pulse Resp B/P (MAP) Pulse Ox O2 Delivery O2 Flow Rate FiO2 07/13/17 08:05 95 Trach Collar 35 07/13/17 08:00 82 07/13/17 08:00 98.4 82 25 158/72 (100) 97 07/13/17 08:00 97 Trach Collar 5.00 35 07/13/17 06:13 80 07/13/17 05:50 98 30 07/13/17 05:15 99.6 87 23 171/73 (105) 98 07/13/17 05:15 30 07/13/17 05:13 86 07/13/17 02:12 75 07/13/17 00:00 30 07/13/17 00:00 70 07/13/17 00:00 67 25 169/81 (110) 99 07/12/17 22:00 67 07/12/17 21:00 100 30 07/12/17 20:00 30 07/12/17 20:00 99.0 65 20 146/64 (91) 100 07/12/17 20:00 65 07/12/17 20:00 100 Mechanical Ventilator 30 Trach Collar 07/12/17 19:00 100 Trach Collar 5.00 40 07/12/17 16:00 88 07/12/17 16:00 99.3 88 26 159/77 (104) 98 07/12/17 12:00 85 07/12/17 12:00 98.3 85 27 156/71 (99) 97 Constitutional Vital Signs Date Time Temp Pulse Resp B/P (MAP) Pulse Ox O2 Delivery O2 Flow Rate FiO2 07/13/17 08:05 95 Trach Collar 35 07/13/17 08:00 82 07/13/17 08:00 98.4 82 25 158/72 (100) 97 07/13/17 08:00 97 Trach Collar 5.00 35 07/13/17 06:13 80 07/13/17 05:50 98 30 07/13/17 05:15 99.6 87 23 171/73 (105) 98 07/13/17 05:15 30 07/13/17 05:13 86 07/13/17 02:12 75 07/13/17 00:00 30 07/13/17 00:00 70 07/13/17 00:00 67 25 169/81 (110) 99 07/12/17 22:00 67 07/12/17 21:00 100 30 07/12/17 20:00 30 07/12/17 20:00 99.0 65 20 146/64 (91) 100 07/12/17 20:00 65 07/12/17 20:00 100 Mechanical Ventilator 30 Trach Collar 07/12/17 19:00 100 Trach Collar 5.00 40 07/12/17 16:00 88 07/12/17 16:00 99.3 88 26 159/77 (104) 98 07/12/17 12:00 85 07/12/17 12:00 98.3 85 27 156/71 (99) 97 (Bell Mooney) Review of Systems ROS Limitations: Altered Mental Status (Bell Mooney) Physical Exam Ms. Darnell valencia appears more drowsy today, not as alert as yesterday. HEENT: Left ventriculostomy drain clamped, ICP normal. Site without signs of infection. Nonicteric sclera Cranial Nerves: Pupils equal, round reactive. Gross eoms intact, tracking. Cervical Spine: soft, supple Motor: not consistently following commands, intermittent movements of extremities Sensory: withdraws to pain stimuli Heart: regular rate rhythm Lungs: clear Skin. warm and dry (Bell Mooney) Ms. Darnell valencia appears more drowsy today, not as alert as yesterday. HEENT: Left ventriculostomy drain clamped, ICP normal. Site without signs of infection. Nonicteric sclera Cranial Nerves: Pupils equal, round reactive. Gross eoms intact, tracking. Cervical Spine: soft, supple Motor: not consistently following commands, intermittent movements of extremities Sensory: withdraws to pain stimuli Heart: regular rate rhythm Lungs: clear Skin. warm and dry (Andre Nixon MD) Medications Current Medications Current Medications Sodium Chloride (NS Flush) 2 ml UNSCH PRN IV FLUSH FLUSH AFTER USING IV ACCESS Last administered on 07/02/17at 10:18; Start 06/15/17 at 05:15 Sodium Chloride 500 ml @ 500 mls/hr BOLUS ONCE IV ; Start 06/15/17 at 06:00; Stop 06/15/17 at 06:59; Status DC Nicardipine HCl 25 mg/Sodium Chloride 250 ml @ 50 mls/hr TITRATE PRN IV Blood pressure management Last administered on 06/19/17at 06:43; Start 06/15/17 at 06: 15; Stop 06/23/17 at 17:33; Status DC Pravastatin Sodium (Pravachol) 80 mg HS PO Last administered on 06/17/17at 23:23 ; Start 06/15/17 at 21:00; Stop 06/18/17 at 09:30; Status DC Levetriacetam 100 ml @ 400 mls/hr BOLUS ONCE IV Last administered on at 09:43; Start 06/15/17 at 06:30; Stop 06/15/17 at 06:44; Status DC Sodium Chloride 1,000 ml @ 100 mls/hr Q10H IV Last administered on 06/17/17at 07:29; Start 06/15/17 at 06:17; Stop 06/17/17 at 12:42; Status DC Acetaminophen (Tylenol) 650 mg Q6H PRN PO PAIN 1-10 AND/OR FEVER >101F Last administered on 06/23/17at 20:18; Start 06/15/17 at 06:30; Stop 07/06/17 at 13:27 ; Status DC Morphine Sulfate (Morphine Inj) 2 mg Q2H PRN IV PUSH PAIN SCALE 6 TO 10 Last administered on 06/19/17at 08:29; Start 06/15/17 at 06:30; Stop 06/20/17 at 08:25 ; Status DC Famotidine (Pepcid Inj) 10 mg Q12HR IV PUSH Last administered on 06/25/17at 08: 45; Start 06/15/17 at 09:00; Stop 06/25/17 at 16:28; Status DC Ondansetron HCl (Zofran Inj) 4 mg Q6H PRN IV PUSH NAUSEA OR VOMITING Last administered on 07/10/17at 19:44; Start 06/15/17 at 06:30 Albuterol/ Ipratropium (Duoneb Neb) 1 ampule Q4HR NEB PRN INH WHEEZING; Start 06/15/17 at 06:30; Stop 06/27/17 at 09:15; Status DC Miscellaneous Information 1 [id number] XX Last administered on 06/15/17at 06:30; Start 06/15/17 at 06:30 Chlorhexidine Gluconate (Chlorhexidine 2% Cloth) Taper DAILY@04 TOP Last administered on 06/20/17at 04:00; Start 06/16/17 at 04:00; Stop 06/12/18 at 03:59 Chlorhexidine Gluconate (Chlorhexidine 2% Cloth) 3 pack UNSCH PRN TOP HYGIENIC CARE; Start 06/15/17 at 06:30 Senna/Docusate Sodium ([place]-Colace) 1 tab BID PO Last administered on at 08:00; Start 06/15/17 at 09:00; Stop 06/29/17 at 15:16; Status DC Magnesium Hydroxide (Milk Of Magnesia Liq) 30 ml Q12H PRN PO Mild constipation Last administered on 06/22/17at 20:58; Start 06/15/17 at 06:30 Sennosides (Senokot) 17.2 mg Q12H PRN PO Moderate constipation; Start 06/15/17 at 06:30 Bisacodyl (Dulcolax Supp) 10 mg DAILY PRN RECTAL SEVERE CONSITIPATION; Start at 06:30 Lactulose (Lactulose Liq) 30 ml DAILY PRN PO SEVERE CONSITIPATION Last administered on 06/22/17at 20:58; Start 06/15/17 at 06:30 Rocuronium Toivola (Zemuron Inj) 100 mg BOLUS ONCE IV Last administered on at 14:34; Start 06/15/17 at 14:00; Stop 06/15/17 at 14:01; Status DC Midazolam HCl (Versed Inj) 5 mg ONCE ONCE IV PUSH Last administered on at 14:35; Start 06/15/17 at 14:00; Stop 06/15/17 at 14:01; Status DC Chlorhexidine Gluconate (Peridex 0.12% Liq) 15 ml BID@08,20 MT Last administered on 07/15/17at 20:25; Start 06/15/17 at 20:00 Propofol 100 ml @ 0 mls/hr TITRATE PRN IV SEDATION; Start 06/15/17 at 14:00; Status UNV Midazolam HCl (Versed Inj) 5 mg STK-MED ONCE .ROUTE ; Start 06/15/17 at 14:07; Stop 06/15/17 at 14:08; Status DC Rocuronium Toivola (Zemuron Inj) 50 mg STK-MED ONCE .ROUTE ; Start 06/15/17 at 14:07; Stop 06/15/17 at 14:08; Status DC Propofol 100 ml @ 1.941 mls/ hr TITRATE PRN IV SEDATION Last administered on at 14:41; Start 06/15/17 at 14:45; Stop 06/21/17 at 14:09; Status DC Miscellaneous Information (RASS Change Order) 1 ea ONCE ONCE XX Last administered on 06/15/17at 14:45; Start 06/15/17 at 14:45; Stop 06/15/17 at 14:46 ; Status DC Norepinephrine Bitartrate 4 mg/ Sodium Chloride 250 ml @ 7.5 mls/hr TITRATE PRN IV Maintain MAP > 70 mmHg; Start 06/15/17 at 19:45; Stop 06/15/17 at 21:37; Status DC Norepinephrine Bitartrate 4 mg/ Sodium Chloride 250 ml @ 7.5 mls/hr TITRATE PRN IV Maintain MAP > 70 mmHg Last administered on 06/15/17at 19:00; Start at 21:45; Stop 06/20/17 at 08:11; Status DC Levetriacetam (Keppra) 500 mg Q12HR PO Last administered on 07/09/17at 09:59; Start 06/17/17 at 11:30; Stop 07/09/17 at 21:24; Status DC Potassium Chloride 20 meq/ Lactated Ringer's 1,010 ml @ 42 mls/hr Q24H IV ; Start 06/17/17 at 12:45; Stop 06/17/17 at 13:02; Status DC Potassium Chloride 10 meq/ Lactated Ringer's 505 ml @ 42 mls/hr Q12H2M IV Last administered on 06/19/17at 22:32; Start 06/17/17 at 13:15; Stop 06/20/17 at 08:13; Status DC Pravastatin Sodium (Pravachol) 40 mg HS PO Last administered on 07/15/17at 20:26 ; Start 06/18/17 at 21:00 Potassium Phosphate 15 mmol/ Sodium Chloride 155 ml @ 38.75 mls/ hr ONCE ONCE IV Last administered on 06/19/17at 08:50; Start 06/19/17 at 08:00; Stop at 11:59; Status DC Metoprolol Tartrate (Lopressor) 25 mg Q12HR PO Last administered on 07/15/17at 20:26; Start 06/19/17 at 09:00 Pharmacy Profile Note 0 ml @ 0 mls/hr UNSCH OTHER ; Start 06/20/17 at 08:15; Stop 06/21/17 at 14:09; Status DC Albuterol/ Ipratropium (Duoneb Neb) 1 ampule Q6HR NEB NEB Last administered on 06/24/17at 07:16; Start 06/20/17 at 10:00; Stop 06/24/17 at 09:59; Status DC Vancomycin HCl 1250 mg/Sodium Chloride 262.5 ml @ 262.5 mls/ hr ONCE ONCE IV Last administered on 06/20/17at 13:29; Start 06/20/17 at 12:00; Stop 06/20/17 at 12:59; Status DC Hydralazine HCl (Apresoline Inj) 10 mg Q4H PRN IV PUSH SBP greater than 160 Last administered on 07/15/17at 20:28; Start 06/20/17 at 12:30 Potassium Phosphate 15 mmol/ Sodium Chloride 155 ml @ 38.75 mls/ hr ONCE ONCE IV Last administered on 06/20/17at 17:05; Start 06/20/17 at 13:45; Stop at 17:44; Status DC Furosemide (Lasix Inj) 40 mg ONCE ONCE IV PUSH Last administered on 06/21/17at 08:53; Start 06/21/17 at 08:30; Stop 06/21/17 at 08:31; Status DC Cefazolin Sodium/ Dextrose 50 ml @ 100 mls/hr Q8H IV Last administered on 06/24at 15:02; Start 06/21/17 at 15:00; Stop 06/24/17 at 21:47; Status DC Cefazolin Sodium 2000 mg/Sodium Chloride 120 ml @ 240 mls/hr Q8H IV Last administered on 06/30/17at 06:06; Start 06/24/17 at 23:00; Stop 06/30/17 at 10:37 ; Status DC Famotidine (Pepcid) 10 mg BID PO Last administered on 07/03/17at 08:48; Start at 21:00; Stop 07/03/17 at 20:13; Status DC Chlorhexidine Gluconate (Hibiclens 4% Top Soln) 1 applic HS TOP Last administered on 06/27/17at 05:56; Start 06/26/17 at 21:00; Stop 06/28/17 at 21:01 ; Status DC Acetaminophen 100 ml @ As Directed STK-MED ONCE IV ; Start 06/27/17 at 07:04; Stop 06/27/17 at 07:05; Status DC Artificial Tears (Lacrilube Opht Oint) 3.5 applic STK-MED ONCE .ROUTE ; Start at 07:05; Stop 06/27/17 at 07:06; Status DC Lidocaine/ Epinephrine (Xylocaine-Epi 1%-1:100,000 Inj) 30 ml STK-MED ONCE .ROUTE ; Start 06/27/17 at 07:32; Stop 06/27/17 at 07:33; Status DC Thrombin (Thrombin Top Soln) 10,000 units STK-MED ONCE .ROUTE ; Start 06/27/17 at 07:32; Stop 06/27/17 at 07:33; Status DC Gelatin (Gelfoam 100 Top) 1 foam STK-MED ONCE .ROUTE ; Start 06/27/17 at 07:32; Stop 06/27/17 at 07:33; Status DC Bacitracin (Baciguent Oint) 15 applic STK-MED ONCE .ROUTE ; Start 06/27/17 at 07 :32; Stop 06/27/17 at 07:33; Status DC Gentamicin Sulfate (Gentamicin Inj) 240 mg STK-MED ONCE .ROUTE ; Start 06/27/17 at 07:33; Stop 06/27/17 at 07:34; Status DC Albuterol Sulfate (Albuterol Neb) 2.5 mg Q2HR NEB PRN NEB dyspnea Last administered on 07/11/17at 19:52; Start 06/27/17 at 09:15 Labetalol HCl (Trandate Inj) 10 mg Q1HR PRN IV PUSH SBP>160, DBP>90, HR>65 Last administered on 07/10/17at 18:07; Start 06/27/17 at 09:15 Polyethylene Glycol (Miralax) 17 gm ONCE ONCE PO ; Start 06/27/17 at 09:15; Stop 06/27/17 at 09:19; Status DC Polyethylene Glycol (Miralax) 17 gm DAILY PO Last administered on 06/28/17at 08: 31; Start 06/28/17 at 09:00; Stop 06/28/17 at 15:18; Status DC Glycerin (Glycerin Adult Supp) 2 gm ONCE ONCE RECTAL ; Start 06/27/17 at 09:15 ; Stop 06/27/17 at 09:20; Status DC Sodium Chloride (Sodium Chloride) 1 gm ONCE ONCE PO ; Start 06/27/17 at 09:45; Stop 06/27/17 at 10:35; Status DC Propofol (Diprivan 500 Mg/ 50 ml Inj) 100 mg ONCE ONCE IV Last administered on 06/27/17at 11:10; Start 06/27/17 at 11:00; Stop 06/27/17 at 11:01; Status DC Chlorhexidine Gluconate (Peridex 0.12% Liq) 15 ml BID@08,20 MT ; Start 06/27/17 at 20:00; Status Cancel Propofol 100 ml @ 2.073 mls/ hr TITRATE PRN IV SEDATION Last administered on at 13:54; Start 06/27/17 at 11:00 Fentanyl Citrate 250 ml @ 5 mls/hr TITRATE PRN IV SEDATION Last administered on 07/06/17at 04:21; Start 06/27/17 at 11:00 Lidocaine HCl (Xylocaine 2% Inj) 100 mg ONCE ONCE IV PUSH Last administered on 06/27/17at 13:34; Start 06/27/17 at 11:00; Stop 06/27/17 at 11:01; Status DC Etomidate (Amidate Inj) 40 mg ONCE ONCE IV PUSH Last administered on at 13:34; Start 06/27/17 at 11:00; Stop 06/27/17 at 11:01; Status DC Rocuronium Toivola (Zemuron Inj) 100 mg BOLUS ONCE IV Last administered on at 13:35; Start 06/27/17 at 11:30; Stop 06/27/17 at 11:31; Status DC Lidocaine/ Epinephrine (Xylocaine-Epi 1%-1:100,000 Inj) 30 ml STK-MED ONCE .ROUTE ; Start 06/27/17 at 10:50; Stop 06/27/17 at 10:51; Status DC Rocuronium Toivola (Zemuron Inj) 100 mg STK-MED ONCE .ROUTE ; Start 06/27/17 at 10:51; Stop 06/27/17 at 10:52; Status DC Artificial Tears (Tears Naturale Opth Soln) 1 drop Q8HR EACH EYE Last administered on 07/15/17at 14:00; Start 06/28/17 at 17:00 Polyethylene Glycol (Miralax) 17 gm BID PO Last administered on 07/15/17at 08:58 ; Start 06/28/17 at 21:00 Lactulose (Lactulose Liq) 30 ml QID PO Last administered on 07/01/17at 13:08; Start 06/28/17 at 18:00; Stop 07/01/17 at 14:12; Status DC Mineral Oil (Kondremul Liq) 30 ml ONCE ONCE PO Last administered on 06/28/17at 16:54; Start 06/28/17 at 17:00; Stop 06/28/17 at 17:01; Status DC Glycerin (Glycerin Adult Supp) 2 gm ONCE ONCE RECTAL Last administered on 06/28 16:54; Start 06/28/17 at 17:00; Stop 06/28/17 at 17:01; Status DC Methylnaltrexone Toivola (Relistor Inj) 12 mg ONCE ONCE SQ Last administered on 06/28/17at 17:20; Start 06/28/17 at 17:00; Stop 06/28/17 at 17:01; Status DC Metoclopramide HCl (Reglan Inj) 5 mg Q8HR IV PUSH Last administered on at 15:42; Start 06/29/17 at 22:00 Methylnaltrexone Toivola (Relistor Inj) 12 mg ONCE ONCE SQ Last administered on 06/29/17at 17:14; Start 06/29/17 at 15:15; Stop 06/29/17 at 15:30; Status DC Docusate Sodium (Colace Liq) 100 mg Q12HR PO Last administered on 07/15/17at 08: 56; Start 06/29/17 at 21:00 Sennosides (Senna Liq) 8.8 mg BID PO Last administered on 07/15/17at 08:57; Start 06/29/17 at 21:00 Mineral Oil (Kondremul Liq) 30 ml ONCE ONCE PO Last administered on 06/29/17at 15:15; Start 06/29/17 at 15:15; Stop 06/29/17 at 15:30; Status DC Glycerin (Glycerin Adult Supp) 2 gm ONCE ONCE RECTAL Last administered on 06/29at 15:15; Start 06/29/17 at 15:15; Stop 06/29/17 at 15:30; Status DC Magnesium Citrate (Citroma Liq) 300 ml ONCE ONCE PO ; Start 06/30/17 at 10:45; Stop 06/30/17 at 10:49; Status DC Mineral Oil (Fleet Mineral Oil Enema) 118 ml ONCE ONCE RECTAL ; Start 06/30/17 at 10:45; Stop 06/30/17 at 10:49; Status DC Mineral Oil (Kondremul Liq) 30 ml ONCE ONCE PO ; Start 06/30/17 at 10:45; Stop 06/30/17 at 10:49; Status DC Sodium Phosphate 30 mmol/Sodium Chloride 260 ml @ 43.333 mls/ hr ONCE ONCE IV ; Start 06/30/17 at 12:00; Stop 06/30/17 at 17:59; Status DC Magnesium Sulfate/ Dextrose 100 ml @ 100 mls/hr Q1H IV Last administered on at 11:45; Start 06/30/17 at 10:45; Stop 06/30/17 at 12:44; Status DC Piperacillin Sod/ Tazobactam Sod 100 ml @ 200 mls/hr Q6H IV Last administered on 07/07/17at 09:59; Start 06/30/17 at 11:00; Stop 07/07/17 at 11:00; Status DC Albuterol/ Ipratropium (Duoneb Neb) 1 ampule Q6HR WHILE AWAKE NEB NEB Last administered on 07/05/17at 13:13; Start 07/01/17 at 20:00; Stop 07/05/17 at 14:07; Status DC Potassium Chloride (KCl Powder) 20 meq ONCE ONCE PO ; Start 07/02/17 at 22:15; Stop 07/02/17 at 22:16; Status DC Famotidine (Pepcid) 20 mg BID PO Last administered on 07/09/17 09:59; Start 07/03/17 at 21:00; Stop 07/10/17 at 14:29; Status DC Folic Acid (Folate) 1 mg DAILY PO Last administered on 07/15/17at 08:58; Start 07/04/17 at 09:15 Albuterol/ Ipratropium (Duoneb Neb) 1 ampule Q6HR WHILE AWAKE NEB NEB Last administered on 07/06/17 13:06; Start 07/05/17 at 14:00; Stop 07/06/17 at 13:27; Status DC Albuterol/ Ipratropium (Duoneb Neb) 1 ampule Q6HR ALT NEB NEB ; Start 07/06/17 at 19:00; Stop 07/06/17 at 19:00; Status DC Acetaminophen (Tylenol 650 Mg/ 20 ml Liq) 650 mg Q6H PRN PO fever Last administered on 07/08/17 15:09; Start 07/06/17 at 13:30 Albuterol/ Ipratropium (Duoneb Neb) 1 ampule Q6HR NEB NEB Last administered on 07/10/17 20:29; Start 07/06/17 at 22:00; Stop 07/10/17 at 21:59; Status DC Midazolam HCl (Versed Inj) 5 mg ONCE ONCE IV PUSH Last administered on 14:33; Start 07/09/17 at 14:00; Stop 07/09/17 at 14:01; Status DC Rocuronium Toivola (Zemuron Inj) 50 mg BOLUS ONCE IV Last administered on 14:30; Start 07/09/17 at 14:00; Stop 07/09/17 at 14:01; Status DC Fentanyl Citrate (fentaNYL INJ) 200 mcg ONCE ONCE IV PUSH Last administered on 07/09/17 14:31; Start 07/09/17 at 14:00; Stop 07/09/17 at 14:01; Status DC Norepinephrine Bitartrate 250 ml @ As Directed STK-MED ONCE IV ; Start 07/09/17 at 15:47; Stop 07/09/17 at 15:48; Status DC Levetriacetam 500 mg/Sodium Chloride 105 ml @ 420 mls/hr Q12HR IV Last administered on 07/11/17at 08:35; Start 07/09/17 at 21:30; Stop 07/11/17 at 17:51 ; Status DC Cefazolin Sodium 1000 mg/Sodium Chloride 100 ml @ 200 mls/hr MARKETING COMMUNITY LIAISON IV Last administered on 07/10/17at 14:17; Start 07/10/17 at 10:30; Stop 07/12/17 at 20:27 ; Status DC Famotidine (Pepcid) 10 mg BID PO ; Start 07/10/17 at 21:00; Stop 07/10/17 at 21: 00; Status DC Pantoprazole Sodium (Protonix) 20 mg DAILY PO ; Start 07/10/17 at 17:00; Stop at 11:19; Status DC Propofol (Diprivan 200 Mg/20 ml Inj) 200 mg STK-MED ONCE IV ; Start 07/10/17 at 12:00; Stop 07/11/17 at 10:48; Status DC Phenylephrine HCl (Neosynephrine/ NS 1000 Mcg/10ml Syr) 1,000 mcg STK-MED ONCE IV ; Start 07/10/17 at 12:00; Stop 07/11/17 at 10:48; Status DC Famotidine (Pepcid) 10 mg BID PEG Last administered on 07/15/17at 20:26; Start 07/11/17 at 21:00 Levetriacetam (Keppra) 500 mg Q12HR PEG Last administered on 07/15/17at 20:26; Start 07/11/17 at 21:00 Sodium Chloride (Sodium Chloride) 1 gm Q12HR PO Last administered on 07/15/17at 20:26; Start 07/12/17 at 13:15 Sodium Chloride 1,000 ml @ 100 mls/hr Q10H IV Last administered on 07/13/17at 05:45; Start 07/12/17 at 19:45; Stop 07/13/17 at 17:41; Status DC Cefazolin Sodium/ Dextrose 50 ml @ 150 mls/hr [employer] LIAISON IV Last administered on 07/13/17at 14:53; Start 07/12/17 at 19:45 Vancomycin HCl 1000 mg/Sodium Chloride 250 ml @ 250 mls/hr [employer] LIAISON IV ; Start 07/12/17 at 19:45 Chlorhexidine Gluconate (Hibiclens 4% Top Soln) 1 applic HS TOP Last administered on 07/13/17at 09:00; Start 07/12/17 at 21:00; Stop 07/13/17 at 21:01 ; Status DC Acetaminophen 100 ml @ As Directed STK-MED ONCE IV ; Start 07/13/17 at 12:10; Stop 07/13/17 at 12:11; Status DC Artificial Tears (Lacrilube Opht Oint) 3.5 applic STK-MED ONCE .ROUTE ; Start at 12:10; Stop 07/13/17 at 12:11; Status DC Lidocaine/ Epinephrine (Xylocaine-Epi 1%-1:100,000 Inj) 30 ml STK-MED ONCE .ROUTE Last administered on 07/13/17at 14:50; Start 07/13/17 at 12:58; Stop at 12:59; Status DC Thrombin (Thrombin Top Soln) 5,000 units STK-MED ONCE .ROUTE Last administered on 07/13/17at 14:50; Start 07/13/17 at 12:58; Stop 07/13/17 at 12:59; Status DC Gelatin (Gelfoam 100 Top) 1 foam STK-MED ONCE .ROUTE Last administered on at 14:50; Start 07/13/17 at 12:58; Stop 07/13/17 at 12:59; Status DC Bacitracin (Baciguent Oint) 15 applic STK-MED ONCE .ROUTE Last administered on 07/13/17 14:50; Start 07/13/17 at 12:58; Stop 07/13/17 at 12:59; Status DC Gentamicin Sulfate (Gentamicin Inj) 240 mg STK-MED ONCE .ROUTE Last administered on 07/13/17at 14:50; Start 07/13/17 at 12:58; Stop 07/13/17 at 12:59 ; Status DC Fentanyl Citrate (fentaNYL INJ) 100 mcg STK-MED ONCE .ROUTE ; Start 07/13/17 at 16:36; Stop 07/13/17 at 16:37; Status DC Potassium Chloride/Sodium Chloride 1,000 ml @ 100 mls/hr Q10H IV Last administered on 07/14/17at 02:47; Start 07/13/17 at 16:38; Stop 07/14/17 at 13:01 ; Status DC Cefazolin Sodium/ Dextrose 50 ml @ 100 mls/hr Q8H IV Last administered on 07/14at 14:00; Start 07/13/17 at 22:00; Stop 07/14/17 at 14:29; Status DC Pantoprazole Sodium (Protonix Inj) 40 mg DAILY IVP Last administered on at 08:56; Start 07/14/17 at 09:00 Acetaminophen/ Hydrocodone Bitart ([place] 10-325 Mg) 1 tab Q4H PRN PO PAIN SCALE 1 TO 5; Start 07/13/17 at 16:45 Acetaminophen/ Hydrocodone Bitart ([place] 10-325 Mg) 2 tab Q4H PRN PO PAIN SCALE 6 TO 10; Start 07/13/17 at 16:45 Morphine Sulfate (Morphine Inj) 2 mg Q2H PRN IV PUSH PAIN SCALE 1 TO 6; Start 07/13/17 at 16:45 Morphine Sulfate (Morphine Inj) 4 mg Q2H PRN IV PUSH PAIN SCALE 7 TO 10; Start 07/13/17 at 16:45 Acetaminophen (Tylenol) 650 mg Q4H PRN PO TEMPERATURE > 101.5 F; Start at 16:45 Miscellaneous Information ALL NURSING DEPARTME... UNSCH PRN .XX SEE LABEL COMMENTS; Start 07/13/17 at 16:08; Stop 07/14/17 at 16:07; Status DC (Andre Nixon MD) Medical Decision Making MDM Remarks 77 y/o female with large hemorrhagic stroke, she had evidence of hydrocephalus, she underwent placement of ventriculostomy drain 06/15/17 due to worsening mental status with improvement of mental status pt did not tolerate clamping of ventriculostomy drain, ventriculostomy drain replaced 06/27/17, B[employer] shunt held due to new right side stroke, rechallenging ventriculostomy, ventriculostomy drain clamped, follow-up CT brain 411 with persistent ventriculomegaly, EVD drain clamped for 48 hours, appearing more drowsy on examination 07/12/17 (Bell Mooney) Plan Plan Remarks For placement of ventriculoperitoneal shunt Discussed with son over the phone Consent obtained Ventriculotomy drain reclamped for surgery (Bell Mooney) Attending Statement We have discussed with her son the details including the [id number] details of the surgical procedure, its indications, alternatives, risks, and potential complications. Risks and potential complications include, but are not limited to, infection, blood loss, CSF leak, partial or complete loss of sight in one or both eyes, paresis, paralysis, permanent pain or difficulty swallowing, loss of bowel or bladder function, complications from anesthesia, blood clot, stroke , myocardial infarction, or even . The exam, history, and the medical decision-making described in the above note were completed with the assistance of the mid-level provider. I reviewed and agree with the findings presented. I attest that I had a [id number] encounter with the patient on the same day, and personally performed and documented my assessment and findings in the medical record. (Andre Nixon MD) Bell Mooney Jul 13, 2017 11:17 Andre Nixon MD Jul 15, 2017 21:20
[2017-07-13] MEDS ORDERED: GLYCOPYRROLATE 1 MG/5 ML SYRINGE IV PUSH ONE (12:00)
[2017-07-13] MEDS ORDERED: DEXAMETHASONE SOD PHOS 4 MG/ML VIAL IV ONE (12:00)
[2017-07-13] MEDS ORDERED: ONDANSETRON HCL 4 MG/2 ML VIAL IV ONE (12:00)
[2017-07-13] MEDS ORDERED: NEOSTIGMINE 5 MG/5 ML SYRINGE IV PUSH ONE (12:00)
[2017-07-13] MEDS ORDERED: ROCURONIUM INJ 50 MG/5 ML SYRINGE IV PUSH ONE (12:00)
[2017-07-13] MEDS ORDERED: PROPOFOL 200 MG/20 ML AMP IV ONE (12:00)
[2017-07-13] MEDS ORDERED: ePHEDrine/NS 25 MG/5 ML SYRINGE IV ONE (12:00)
[2017-07-13] MEDS ORDERED: LACTATED RINGER'S 1000 ML INJ 1,000 ML IV ONE (12:00)
[2017-07-13] MEDS ORDERED: LIDOCAINE HCL 1% PF 5 ML SYRINGE OTHER ONE (12:00)
[2017-07-13] MEDS ORDERED: PHENYLEPH/NS 1000 MCG/10 ML SYR IV ONE (12:00)
[2017-07-13] MEDS ORDERED: ARTIFICIAL TEARS OPTH OINT 3.5 APPLIC/3.5 GM TUBO ONE (12:10)
[2017-07-13] MEDS ORDERED: ACETAMINOPHEN 1000 MG/100 ML 100 ML IV ONE (12:10)
[2017-07-13] MEDS ORDERED: THROMBIN (TOPICAL) 5,000 UNIT VIAL ONE (12:58)
[2017-07-13] MEDS ORDERED: BACITRACIN TOP OINT 15 GM TUBE ONE (12:58)
[2017-07-13] MEDS ORDERED: LIDOCAINE 1%/EPINEPHrine 1:100,000 SOLN 30 ML VIAL ONE (12:58)
[2017-07-13] MEDS ORDERED: GENTAMICIN SULFATE 80 MG/2 ML VIAL ONE (12:58)
[2017-07-13] MEDS ORDERED: GELFOAM SIZE 100 ONE (12:58)
--- NOTE | 2017-07-13 13:03 | HHI.PR ---
Review/Management Diagnosis/Plan: (1) Acute ischemic left MCA stroke ICD Codes: I63.512 - Cerebral infarction due to unspecified occlusion or stenosis of left middle cerebral artery Status: Acute Plan: left posterior mca temp-occipital infarct carotid u/s rt carotid stenosis- doesn't explain infarct mra brain previous nml 06/17 lipids nml hyper coag labs-antithrombin 3 slightly elevated. elevated homocysteine eeg- no sz activity echo-LVEF 65-70% folic acid supplementation for hyperhomocysteinemia recs going to OR today for RAD TECH shunt p.t. ccm, nsx following (2) Intracranial hemorrhage ICD Codes: I62.9 - Nontraumatic intracranial hemorrhage, unspecified Status: Acute Plan: rt o-p ich large spontaneous, likely hypertensive mra brain-nml, s/p left vp purchasing shunt 06/27 (3) Encephalopathy, metabolic ICD Codes: G93.41 - Metabolic encephalopathy Status: Acute Plan: due to ich (4) Hypertensive emergency ICD Codes: I16.1 - Hypertensive emergency Status: Acute Plan: improved on bp meds (5) CLAYTON (acute kidney injury) ICD Codes: N17.9 - Acute kidney failure, unspecified Status: Acute (Mio Elmore) Daily Summary seen and examined. d/w PA. agree with above (Jose Cruz Crowell MD) Subjective Subjective Comments No acute events reported Active Medications Current Medications Medications (Trade) Dose Ordered Sig/Jose Guadalupe Route Start Time Stop Time Status Last Admin (NS Flush) 2 ml UNSCH PRN IV FLUSH 06/15/17 05:15 07/02/17 10:18 (Zofran Inj) 4 mg Q6H PRN IV PUSH 06/15/17 06:30 07/10/17 19:44 Miscellaneous Information 1 Q361D XX 06/15/17 06:30 06/15/17 06:30 (Chlorhexidine 2% Cloth) Taper DAILY@04 TOP 06/16/17 04:00 06/12/18 03:59 06/20/17 04:00 (Chlorhexidine 2% Cloth) 3 pack UNSCH PRN TOP 06/15/17 06:30 (Milk Of Magnesia Liq) 30 ml Q12H PRN PO 06/15/17 06:30 06/22/17 20:58 (Senokot) 17.2 mg Q12H PRN PO 06/15/17 06:30 (Dulcolax Supp) 10 mg DAILY PRN RECTAL 06/15/17 06:30 (Lactulose Liq) 30 ml DAILY PRN PO 06/15/17 06:30 06/22/17 20:58 (Peridex 0.12% Liq) 15 ml BID@08,20 MT 06/15/17 20:00 07/13/17 08:00 (Pravachol) 40 mg HS PO 06/18/17 21:00 07/12/17 21:06 (Lopressor) 25 mg Q12HR PO 06/19/17 09:00 07/13/17 08:37 (Apresoline Inj) 10 mg Q4H PRN IV PUSH 06/20/17 12:30 07/13/17 03:28 (Albuterol Neb) 2.5 mg Q2HR NEB PRN NEB 06/27/17 09:15 07/11/17 19:52 (Trandate Inj) 10 mg Q1HR PRN IV PUSH 06/27/17 09:15 07/10/17 18:07 Propofol 100 ml @ 2.073 mls/ hr TITRATE PRN IV 06/27/17 11:00 07/09/17 13:54 Fentanyl Citrate 250 ml @ 5 mls/hr TITRATE PRN IV 06/27/17 11:00 07/06/17 04:21 (Tears Naturale Opth Soln) 1 drop Q8HR EACH EYE 06/28/17 17:00 07/13/17 05:10 (Miralax) 17 gm BID PO 06/28/17 21:00 07/12/17 21:06 (Reglan Inj) 5 mg Q8HR IV PUSH 06/29/17 22:00 07/13/17 06:00 (Colace Liq) 100 mg Q12HR PO 06/29/17 21:00 07/12/17 21:06 (Senna Liq) 8.8 mg BID PO 06/29/17 21:00 07/12/17 21:07 (Folate) 1 mg DAILY PO 07/04/17 09:15 07/13/17 08:37 (Tylenol 650 Mg/ 20 ml Liq) 650 mg Q6H PRN PO 07/06/17 13:30 07/08/17 15:09 (Pepcid) 10 mg BID PEG 07/11/17 21:00 07/13/17 08:37 (Keppra) 500 mg Q12HR PEG 07/11/17 21:00 07/13/17 08:37 (Sodium Chloride) 1 gm Q12HR PO 07/12/17 13:15 07/13/17 08:37 Sodium Chloride 1,000 ml @ 100 mls/hr Q10H IV 07/12/17 19:45 07/13/17 05:45 Cefazolin Sodium/ Dextrose 50 ml @ 150 mls/hr SERVICES EXECUTIVE IV 07/12/17 19:45 Vancomycin HCl 1000 mg/Sodium Chloride 250 ml @ 250 mls/hr SERVICES EXECUTIVE IV 07/12/17 19:45 (Hibiclens 4% Top Soln) 1 applic HS TOP 07/12/17 21:00 07/13/17 21:01 07/12/17 21:00 Allergies Allergies Coded Allergies No Known Allergies (Unverified Allergy, Unknown, 07/09/17) (Mio Elmore) Review of Systems All other ROS: Unable to obtain (not verbal at this time) (Mio Elmore) Exam I&O / VS Vital Signs Date Time Temp Pulse Resp B/P (MAP) Pulse Ox O2 Delivery O2 Flow Rate FiO2 07/13/17 12:00 72 07/13/17 12:00 98.3 72 20 147/71 (96) 100 07/13/17 11:26 97 Trach Collar 35 07/13/17 08:05 95 Trach Collar 35 07/13/17 08:00 82 07/13/17 08:00 98.4 82 25 158/72 (100) 97 07/13/17 08:00 97 Trach Collar 5.00 35 07/13/17 06:13 80 07/13/17 05:50 98 30 07/13/17 05:15 99.6 87 23 171/73 (105) 98 07/13/17 05:15 30 07/13/17 05:13 86 07/13/17 02:12 75 07/13/17 00:00 30 07/13/17 00:00 70 07/13/17 00:00 67 25 169/81 (110) 99 07/12/17 22:00 67 07/12/17 21:00 100 30 4/12/18 20:00 30 07/12/17 20:00 99.0 65 20 146/64 (91) 100 07/12/17 20:00 65 07/12/17 20:00 100 Mechanical Ventilator 30 Trach Collar 07/12/17 19:00 100 Trach Collar 5.00 40 07/12/17 16:00 88 07/12/17 16:00 99.3 88 26 159/77 (104) 98 Respiratory: Symmetrical expansion Exam Comments Alert. Intubated, trach in place. Not following commands, opens her eyes spontaneously and smiles at examiner, follows examiner with her eyes but not to command, withdraws to pain and touch, no clonus, no pathologic reflexes (Mio Elmore) Objective Micro and Labs Laboratory Tests Test 07/12/17 14:42 07/13/17 04:58 Urine Color YELLOW Urine Turbidity CLEAR Urine pH 5.5 Urine Specific [place] 1.019 Urine Protein 30 Urine Glucose (UA) NEG Urine Ketones NEG Urine Occult Blood MOD Urine Nitrite NEG Urine Bilirubin NEG Urine Urobilinogen 2.0 Urine Leukocyte Esterase MOD Urine RBC 91 Urine WBC 22 Urine Squamous Epithelial Cells 1 Urine Amorphous Sediment RARE Urine Bacteria RARE Urine Hyaline Casts 2 Urine Mucus FEW Microscopic Urinalysis Comment CATH-CULTURE IND White Blood Count 17.4 Red Blood Count 2.68 Hemoglobin 8.1 Hematocrit 24.1 Mean Corpuscular Volume 90.1 Mean Corpuscular Hemoglobin 30.2 Mean Corpuscular Hemoglobin Concent 33.5 Red Cell Distribution Width 14.8 Platelet Count 295 Mean Platelet Volume 8.6 Neutrophils (%) (Auto) 74.8 Lymphocytes (%) (Auto) 13.6 Monocytes (%) (Auto) 10.6 Eosinophils (%) (Auto) 0.4 Basophils (%) (Auto) 0.6 Neutrophils # (Auto) 13.0 Lymphocytes # (Auto) 2.4 Monocytes # (Auto) 1.8 Eosinophils # (Auto) 0.1 Basophils # (Auto) 0.1 CBC Comment AUTO DIFF Differential Comment AUTO DIFF CONFIRMED Blood Urea Nitrogen 22 Creatinine 0.64 Random Glucose 112 Total Protein 6.7 Albumin 1.8 Calcium Level 8.2 Magnesium Level 1.7 Alkaline Phosphatase 214 Aspartate Amino Transf (AST/SGOT) 61 Alanine Aminotransferase (ALT/SGPT) 27 Total Bilirubin 0.6 Sodium Level 141 Potassium Level 4.3 Chloride Level 108 Carbon Dioxide Level 24.9 Anion Gap 8 Estimat Glomerular Filtration Rate 90 Date/Time Source Procedure Growth Status 06/29/17 20:02 Blood Peripheral Aerobic Blood Culture - Final NO GROWTH IN 5 DAYS Complete 06/29/17 20:02 Blood Peripheral Anaerobic Blood Culture - Final NO GROWTH IN 5 DAYS Complete 07/12/17 09:45 Cerebral Spinal Fluid Shunt Fluid Gram Stain - Final Resulted 07/12/17 09:45 Cerebral Spinal Fluid Shunt Fluid CSF Culture - Preliminary NO GROWTH IN 24 HOURS. Resulted 06/30/17 12:30 Sputum Endotracheal Gram Stain - Final Complete 06/30/17 12:30 Sputum Culture - Final Klebsiella Pneumoniae Serratia Plymuthica Complete 07/12/17 14:42 Urine Catheterized Urine Urine Culture - Preliminary Gram Negative Cedrick Resulted (Mio Elmore) Mio Elmore Jul 13, 2017 13:03 Jose Cruz Crowell MD Jul 14, 2017 10:46
[2017-07-13] MEDS ORDERED: DO NOT ADM ANY ANTICOAGULANT DRUGS PRN (16:08)
[2017-07-13] MEDS: NS + KCL 20 MEQ INJ 1,000 ML IV SCH (16:38)
[2017-07-13] MEDS ORDERED: ACETAMINOPHEN/HYDROcodone 325 MG/10 MG TAB PO PRN (16:45)
[2017-07-13] MEDS ORDERED: MORPHINE SULFATE 4 MG/ML INJ IV PUSH PRN ×2 (16:45)
[2017-07-13] MEDS ORDERED: ACETAMINOPHEN 325 MG TAB PO PRN (16:45)
--- NOTE | 2017-07-13 16:54 | PD.OP ---
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 INDICATIONS FOR PROCEDURE: Ms Patrick is a 77 year old female with history of hemorrhagic infarction and intraventricular hemorrhage. She underwent placement of a ventriculostomy. Several attempts were made to child and she had a ventriculostomy which resulted on radiological evidence of hydrocephalus and significant decline on her mental status. This improved with the ventriculostomy catheter was open. A ventriculoperitoneal shunt was indicated The [id number] details of the procedure, its indications, alternatives, risks , and potential complications of the surgery were fully discussed with the patient and his family. They fully understood. All their questions were answered. No guarantees were given. They voiced requesting the surgery and signed informed consent.They were offered the alternative of continuing nonsurgical treatment. DETAILS OF THE SURGICAL PROCEDURE: After the induction of general anesthesia, endotracheal intubation was performed. A Box catheter, bilateral OREN hose and sequential compression devices were placed and kept throughout the procedure. The patient was positioned supine on a 30-80 table with the head over a gel doughnut. All pressure points were carefully padded with eggcrate mattress. The right frontotemporal parietal area was shaved prepped and draped in the usual sterile fashion, as well as the neck, chest and abdomen. A small incision was made in the patient's right upper quadrant with a #10 blade and the dissection was carried out through the subcutaneous tissue and Janice's fascia. The rectus sheath was carefully opened with Metzenbaum scissors and the rectus muscles were split along its fibers. The posterior rectus sheath was elevated and carefully opened. The peritoneum was elevated with mosquitoes and opened in the standard fashion. The peritoneal cavity was visualized and exposed. A pursestring suture was placed around the peritoneal opening. Using a tunneler a subcutaneous tunnel was created connecting the abdominal incision with the planned head incision. A small incision was made in the right frontal area and a self-retaining retractor was placed in the incision. An entry point for the catheter was selected 90 mm posterior to the supraorbital rim and 25 mm lateral to the midline. A Midas Pierre was used to create the kan hole. The dura was coagulated with the bipolar in a cruciform fashion. A peritoneal catheter was placed in the subcutaneous tunnel previously created and a pocket was created underneath the galea for placement of the valve. A Sphere 3d programmable valve has calibrated at a pressure of 120 mmHg and flushed according to the allergist/pediatric pulmonologist's instructions. The valve was secured to the proximal end of the peritoneal catheter using a 2-0 silk. Then, a ventricular catheter was advanced into the ventricular system. A good flow of cerebrospinal fluid was obtained.~ The catheter was connected to the valve and the connection secured with a 2-0 silk. Cerebrospinal fluid was noted to drip through the distal end of the peritoneal catheter. The peritoneal catheter was placed in the peritoneal cavity under direct visualization. The pursestring suture was carefully adjusted with special care not to strangulate the catheter. The rectus sheath was closed using interrupted 2-0 Vicryl suture. The Janice's fascia was approximated with 3-0 Vicryl, and the subcutaneous with 3-0 Vicryl. The skin was closed with running subcuticular 4-0 Vicryl in the abdomen. The skin incision was closed using interrupted 3-0 Vicryl for the galea and nancy to the skin. At the end of the procedure, the sponge, needle and instrument counts were all correct. The estimated blood was less than 50 cc. No blood transfusion was given. No intraoperative complications occurred. The patient received preoperative prophylactic antibiotics. The patient was then extubated and transferred to the recovery room in stable condition Andre Nixon MD Jul 13, 2017 16:54
[2017-07-13 17:10] LABS: TOTAL PROTEIN,CSF 43.1 MG/DL (15.0-45.0)
[2017-07-13 18:16] LABS: CSF HISTIOCYTES 4 %; CSF LYMPHOCYTES 70 %; CSF MONOCYTES 19 %; CSF NEUTROPHILS 8 %
[2017-07-13 18:28] LABS: RBC TUBE #1 609 /MM3; SUPERNATE COLOR TUBE #1 SLIGHTLY XANTHOCHROM (CLEAR); WBC TUBE #1 46 /MM3 (0-10)
--- NOTE | 2017-07-13 20:01 | HHI.CCPN ---
Subjective Remarks/Hospital Course Severely dehydrated, elderly woman presents confused to [facility] ED with hypertensive urgency and semi-acute right hemispheric parenchymal brain hemorrhage. Arrived from [facility] on cardene gtt and aphasic. Handness not determined yet. Unable to get ROS. No anticoagulants. INR normal. 06/16: Flaccid left side. Minimal eye opening. Moves right arm and leg to stimulation. Breathes over vent. ICP control, EVD draining well. 06/17: Moving both arms, right much stronger. More alert but episodic apnea spells. 06/18: No events over the night. Patient remains intubated, off sedation. She is currently on pressure support, 01/04, doing well. Awake, following commands. Son present at bedside. T-max of 99.6. I/O 250/1545. 06/19: No events over the night. Patient did well yesterday on pressure support , but was not able to be extubated secondary to no cuff leak. She remains on Cardene currently at 9.5 mg/h. Afebrile with a T-max of 99.4. Negative fluid balance. 06/20: Patient did well over the night. T-max of 100.2. ICP of 4. Thick sputum secretions sent yesterday for culture now growing Staphylococcus. Patient is awake, off sedation following some commands. Off Cardene drip since yesterday. 06/21: Patient did well postextubation and over the night. T-max of 100 yesterday morning. Very good urine output. Patient awake following commands, denying any pain. 06/22: No events over the night. Patient doing well. She is awake and alert, denies headache, nausea, vomiting. No chest pain, no dyspnea, no palpitations. On 2 L nasal cannula. Afebrile over the last 24 hours. Diuresed well post Lasix and she is on negative fluid balance since admission. 06/23: Patient awake, feels better, denies chest pain, shortness of breath, palpitations, headache. Still has productive cough. Afebrile, urine output is adequate. 06/24: No events over the night. Patient afebrile over the last 24 hours. She remains awake, resting in bed, denies any complaints. Sons at bedside. 06/25: Resting comfortably. Drowsy, arousable. EVD at 15cm, drained 60 cc overnight. 06/26: Resting comfortably. Awake and alert. EVD in place drain 10 cc overnight however has some clear fluid draining around ventriculostomy site. Dr. Nixon planning SCENE PAINTER shunt for tomorrow. 06/27: Afebrile. Less arousable today. Eyes are closed. Subjective left-sided weakness. EVD in place at 20 cm. 4 cc overnight. On cefazolin with clear fluid draining from ventriculostomy site. MRI brain currently pending. 06/28: Afebrile. Intubated yesterday secondary to altered mental status/ aspiration. Arousable and follows commands in the ventilator. 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 Echocardiogram pending. Possibly some right carotid stenosis on carotid ultrasound which does not correlate to this current acute left MCA CVA 06/29: Afebrile. More arousable today. Spontaneously moving left upper extremity. Opens eyes to voice. Not following commands. Tolerating tube feeds at goal. 06/30: Resting in bed in no acute distress. More arousable today. Spontaneously moving left upper extremity. Opens eyes to voice. No bowel movement 07/01: T-max 99.8. Currently 99.3. Opens eyes to voice. Squeezes bilateral hands right greater than left. Not following commands however. Tolerating spontaneous breathing trial 07/02: T-max 100.1. Currently afebrile. Did not tolerate CPAP trial today. Slightly more responsive today briefly follow commands right greater than left. Tolerating tube feeding. 07/03: Tolerating CPAP trial today. T-max 100.1. Currently 98.5. 2 bowel movements. More arousable and alert today 07/04: on PSV 10/5/40%. more awake today. follows commands. 07/05: continues to be more awake and alert, but also continues to fail CPAP trials. becomes tachypneic and distress. 07/06: Afebrile. Arousable and follows commands. Neurologically stable. Tolerating tube feeding. On PSV trial since 1050 but currently going to back up mode secondary to apnea. 07/07: Will trial SBTs daily, watch for apnea periods. 07/08: Fentanyl off and she is a little more active today. She may be blind. Unable to extubate today. 07/09: Remains intubated off sedation, ischial spontaneously open moves extremities spontaneously but intermittently. Do not follow commands. Too weak to protect airway successfully. Vent day will need trach and PEG, Dr. Nixon agrees. Will discuss with son. 07/10: Patient underwent percutaneous tracheostomy yesterday tolerated well. EVD raised to 20 yesterday tolerating well. GI consulted for PEG placement. Start weaning trials 07/11: Tolerating T piece, sleepy but wakes up easily following commands today bilateral upper and lower extremities. EVD remains clamped, CT from yesterday persistent hydrocephalus unchanged on my review 07/12: Patient remains on T piece since a.m., slightly more lethargic today but wakes up easily and follows commands. Per neurosurgery plan reopened EV drain today to 5 cm H20, if mentation improves and for SCENE PAINTER shunt tomorrow. Also check UA, CBC CMP and chest x-ray. CSF Gram stain and culture sent. NACL tab started Subjective 07/13: s/p SCENE PAINTER shunt today. doing well on t-piece. somnolent from anesthesia. Objective Vital Signs Date Time Temp Pulse Resp B/P (MAP) Pulse Ox O2 Delivery O2 Flow Rate FiO2 07/13/17 17:15 86 07/13/17 17:15 21 164/84 (110) 95 07/13/17 16:45 97.6 Trach Collar 28 07/13/17 08:00 5.00 Intake and Output 07/13/17 07/13/17 07/14/17 08:00 16:00 00:00 Intake Total 454 ml 80 ml 800 ml Output Total 575 ml 400 ml 210 ml Balance -121 ml -320 ml 590 ml Result Diagram: 07/13/17 0458 07/13/17 0458 Imaging Last Impressions Chest X-Ray 07/02/17 0600 Signed Impressions: Service Date/Time: Sunday, July 02, 2017 04:23 - CONCLUSION: No significant change Harsha Wen MD Abdomen X-Ray 07/01/17 0600 Signed Impressions: Service Date/Time: Saturday, July 01, 2017 04:18 - CONCLUSION: 1. Nonspecific bowel gas pattern without evidence for obstruction or free air. Ivan Bahena MD Carotid Artery Ultrasound 06/27/17 0000 Signed Impressions: Service Date/Time: Tuesday, June 27, 2017 12:59 - CONCLUSION: 1. Moderate diffuse atherosclerotic plaquing at both carotid bifurcations. 2. Mild elevated velocity in the proximal right internal carotid artery. If clinically indicated , recommend CTA of the carotid arteries for further evaluation. 3. No definite high grade or hemodynamically significant stenosis is demonstrated. David Moore MD Brain MRI 06/27/17 0000 Signed Impressions: Service Date/Time: Tuesday, June 27, 2017 09:23 - CONCLUSION: 1. New development of a nonhemorrhagic acute infarct involving the left occipital lobe. 2. Otherwise, the rest of the exam is stable compared to the prior MRI. David Moore MD Head CT 06/26/17 0000 Signed Impressions: Service Date/Time: Monday, June 26, 2017 10:08 - CONCLUSION: 1. Continued evolution of right cerebral hematoma with slightly increasing surrounding edema. 2. No new hemorrhage identified. 3. Continued ventricular dilatation with no further decompression following placement of ventriculostomy. 4. No significant shift of midline structures. Rene Lomeli MD Head Magnetic Resonance Angiography 06/15/17 0000 Signed Impressions: Service Date/Time: Thursday, June 15, 2017 11:52 - CONCLUSION: MRA within normal limits. There is a parenchymal hemorrhage in the posterior right temporal lobe with intraventricular extension. Ivan Bahena MD Objective Remarks General - 77-year-old female, on TP HEENT - pupils are equal, about 3 mm bilaterally, neck is supple. head wrapped in Kerlix. Neck: New trach in place with no significant bleeding CV -RRR. sinus, no JVD. Chest - Equal chest rise. unlabored, clear. Abdomen - soft, nontender, not distended, no guarding. bs active. Extremities -warm, 1+ edema, + peripheral pulses, well perfused. Neuro: Opens eyes, follows commands bilateral upper and lower extremities. A/P Problem List: (1) Hemorrhagic stroke ICD Code: I61.9 - Nontraumatic intracerebral hemorrhage, unspecified Status: Acute (2) Hypertensive urgency ICD Code: I16.0 - Hypertensive urgency Status: Acute (3) Encephalopathy, metabolic ICD Code: G93.41 - Metabolic encephalopathy Status: Acute (4) CLAYTON (acute kidney injury) ICD Code: N17.9 - Acute kidney failure, unspecified Status: Acute Assessment and Plan Neuro/Psych: Right posterior temporal/occipital/parietal intra-axial hematoma Left MCA posterior temporal occipital CVA Right complex partial seizure Wernicke aphasia Acute encephalopathy Following commands. s/p VPS 07/13. Ventriculostomy placed 06/27-neurosurgery managing CT brain 06/25 revealed a right occipital parietal intra-axial hematoma with mild surrounding edema. MRI brain revealed a left MCA CVA involving the left posterior temporal occipital region MRI brain admission revealed right posterior temporal hemorrhage with ventricular extension MRA brain negative for aneurysm CT head 07/10/17: Continued evolution of right occipital hemorrhage, IVH Carotid Dopplers with possible right carotid stenosis. Does not explain acute left MCA CVA. On levetiracetam 500 mg twice daily for seizure. Acetaminophen 650 mg p.o. every 6 hours as needed fever/pain Followed by Dr. Crowell neurology CV: Hypertensive emergency Dyslipidemia Currently on metoprolol 25 mg by mouth twice daily Currently on pravastatin 40 mg daily/on atorvastatin 40 mg daily at home Holding aspirin 81 mg daily in light of acute hemorrhage 06/29 echo - Normal left ventricular size. Mild concentric LVH. The left ventricular systolic function is hyperdynamic with an estimated ejection fraction in the range of 65-70%. Trace TR. The estimated PASP is 43 mmHg. Resp: Acute hypoxic and hypercarbic respiratory failure secondary to aspiration Reintubated secondary to new acute CVA with aspiration. S/p trach 07/09/17 TP up to 12 hours and PSV 10/5 at night Ventilator bundle. Albuterol/ipratropium aerosols every 6 hours alternate nebs with albuterol aerosols every 2 hours as needed dyspnea GI: Hypoalbuminemia Constipation Jevity 1.5 at 50 cc an hour at goal, s/p PEG tube placement Famotidine 20 mg twice daily for GI prophylaxis Docusate sodium/senna 1 tablet twice daily for bowel regimen. Continue polyethylene glycol 17 g twice daily, : no indication for kent catheter. Endo: Sliding scale insulin if indicated to maintain euglycemia Renal: Creatinine currently within normal limits Monitor urine output Accurate I's and O's Heme: Normocytic anemia Monitor CBC daily. Follow trend Hypercoagulable workup ID: Serratia plymithica, MSSA and Klebsiella pneumonia Completed cefazolin 2 g IV every 8 hours day #7 -> done Switch to penicillin/tazobactam day #7 -> done Pertinent cultures 06/30 -sputum -Serratia Plymithica/Klebsiella pneumonia 06/29 -blood cultures 2 -no growth 06/18 -staph aureus/Klebsiella pneumonia sputum 07/12/17 UA and csf culture send FEN: Replace electrolytes as clinically indicated MSK: Osteoarthritis/osteoporosis Holding alendronate 70 mg weekly. Resume clinically indicated Access -Utilize peripheral IV. Central line if indicated Prophylaxis -GI -famotidine -DVT -SCD/holding pharmacological prophylaxis in light of cerebral hematoma. Initiate when okay with neurosurgery Overall impression: Stable hemodynamics. Tolerating TP today. s/p tracheostomy . Need LTAC Mann Taylor MD Jul 13, 2017 20:01
[2017-07-13] MEDS: ceFAZolin 2 GM PREMIX 50 ML IV SCH (22:14)
[2017-07-13] MEDS: PRAVASTATIN SOD 40 MG TAB PO SCH (22:15)
[2017-07-14] VITALS (14 sets, daily range): BP systolic 129–169; BP diastolic 58–80; PULSE 73–95; RESP 19–25; TEMP 98–98.8; O2SAT 97–100
[2017-07-14] MEDS: NS + KCL 20 MEQ INJ 1,000 ML IV SCH (02:47)
[2017-07-14] MEDS: CHLORHEXIDINE GLUCONATE 2 % 1 PACK (2 CLOTHS) TOP SCH (04:00)
[2017-07-14] MEDS: ARTIFICIAL TEARS OPTH SOLN 15 ML BTL EACH EYE SCH ×3 (06:00→21:55)
[2017-07-14] MEDS: ceFAZolin 2 GM PREMIX 50 ML IV SCH ×2 (06:00→14:00)
[2017-07-14] MEDS: METOCLOPRAMIDE HCL 10 MG/2 ML VIAL IV PUSH SCH ×3 (06:00→21:55)
--- NOTE | 2017-07-14 06:09 | RADRPT ---
EXAM DATE/TIME: 07/14/2017 04:39 [place] COMPARISON: MRI BRAIN W/O CONTRAST, June 27, 2017, 9:23. CT BRAIN W/O CONTRAST, July 11, 2017, 5:19. INDICATIONS : Post operative ventriculostomy. RADIATION DOSE: 40.21 CTDIvol (mGy) ; Patient motion MEDICAL HISTORY : Cerebrovascular disease. Stroke Hypertension. SURGICAL HISTORY : Ventriculostomy. ENCOUNTER: Subsequent ACUITY: 1 week PAIN SCALE: Non-responsive LOCATION: cranial TECHNIQUE: Multiple contiguous axial images were obtained of the head. Using automated exposure control and adj ustment of the mA and/or kV according to patient size, radiation dose was kept as low as reasonably a chievable to obtain optimal diagnostic quality images. DICOM format image data is available electro nically for review and comparison. FINDINGS: The left frontal ventriculostomy has been removed with the placement or right frontal ventriculostomy with its tip in the region of the posterior third ventricle. Evolving hemorrhage in the right occipi perri lobe is identified. The ventricles are unchanged in size. Blood is seen layering in the occipital horns. CONCLUSION: 1. Postsurgical changes as above. no acute hemorrhage is identified. Elijah Cortez MD on July 14, 2017 at 6:05 Board Certified Radiologist. This report was verified electronically.
[2017-07-14] MEDS: hydrALAZINE HCL 20 MG/ML VIAL IV PUSH PRN ×2 (07:03→21:54)
[2017-07-14] MEDS: CHLORHEXIDINE 0.12% (ORAL KIT) 15 ML CUP MT SCH ×2 (08:00→21:55)
[2017-07-14] MEDS: METOPROLOL TARTRATE 25 MG TAB PO SCH ×2 (08:29→21:54)
[2017-07-14] MEDS: POLYETHYLENE GLYCOL 17 GM PKG PO SCH ×2 (08:30→21:54)
[2017-07-14] MEDS: DOCUSATE SODIUM 100 MG/10 ML UDC PO SCH ×2 (08:30→21:54)
[2017-07-14] MEDS: FAMOTIDINE 20 MG TAB PEG SCH ×2 (08:30→21:54)
[2017-07-14] MEDS: SODIUM CHLORIDE 1 GRAM TAB PO SCH ×2 (08:30→21:54)
[2017-07-14] MEDS: SENNOSIDES SYRUP 8.8 MG/5 ML CUP PO SCH ×2 (08:30→21:55)
[2017-07-14] MEDS: FOLIC ACID 1 MG TAB PO SCH (08:30)
[2017-07-14] MEDS: levETIRAcetam 500 MG TAB PEG SCH ×2 (08:30→21:54)
[2017-07-14] MEDS: PANTOPRAZOLE SODIUM 40 MG VIAL IVP SCH (08:30)
--- NOTE | 2017-07-14 09:53 | HHI.NSPN ---
(Bell Mooney) Note Status Status: Progress Note (Bell Mooney) Interval History Interval History 77 year old female with large hemorrhage stroke with hydrocephalus, worsening mental status, patient became severely obtunded difficult to arouse, she underwent placement of ventriculostomy drain 06/15/1706/16: ventriculostomy draining well, intubated, opening eyes and moving right side spontaneously. 06/18: ventriculostomy draining well, remains intubated, opens eyes, tracks, moves right side, stable left paresis 06/19: ventriculostomy draining well, CSF still bloody, dark red. opens eyes and moves right side spontaneously 06/20: ventriculostomy draining well, still gross bloody CSF, intubated, but opens eyes and gave thumbs up to command 06/25: Awake, ventriculostomy draining, drain raised to 15 cm of water over the weekend with stable ICPs. 06/26: EVD raised to 20 cm H20 yesterday, ICPs remains stable overnight, however appears more lethargic today, minimally opens eyes but falls back asleep. 06/27: MRI Brain this morning with new acute nonhemorrhagic left occipital infarct. 06/28: left ventriculostomy draining well, intubated and sedated. 07/02: ventriculostomy draining well, remains intubated. ICPs low. 07/03: ICPs stable overnight, intubated, no sedatives, awake, following simple commands. ventriculostomy draining well. 07/04: remains awake, alert, follows commands. still intubated. ventriculostomy draining well, ICPs controlled overnight. 07/05: continues to be intubated, mildly sedated due to vent restlessness. ventriculostomy continues to drain well, ICPs stable. 07/06: remains intubated, CPAP trials continues. no change in neuro exam. EVD draining well. 07/09: ventriculostomy drain increased to 15 cm H20, awake, ICPs stable. 07/11: Ventriculostomy drain clamped overnight, follow-up CT brain this morning completed. Nursing reports patient at times alert, at times becomes drowsy and lethargic. Stable ICPs. 07/12: appearing more sleepier this morning. ICPs continues to be controlled. 07/13: For SKIP MINER shunt placement today, EVD clamp 07/14: s/p SKIP MINER shunt placement, appears more awake, alert, nodding, follows simple commands. (Bell Mooney) Labs, Micro, & Vital Signs Results Date Time Temp Pulse Resp B/P (MAP) Pulse Ox O2 Delivery O2 Flow Rate FiO2 07/14/17 09:25 98 Trach Collar 5.00 28 07/14/17 08:00 98.2 95 20 157/73 (101) 99 07/14/17 08:00 30 07/14/17 08:00 95 07/14/17 06:38 100 100 07/14/17 06:25 98.8 77 21 161/79 (106) 100 07/14/17 06:24 30 07/14/17 06:23 79 07/14/17 02:50 75 07/14/17 01:18 30 07/14/17 01:18 73 19 129/67 (87) 99 07/14/17 01:10 73 07/14/17 01:05 100 30 07/13/17 23:23 76 07/13/17 21:40 100 30 07/13/17 20:17 97.8 87 22 111/56 (74) 97 07/13/17 20:00 87 07/13/17 19:00 97 Mechanical Ventilator 5.00 35 Trach Collar 07/13/17 17:15 86 07/13/17 17:15 86 21 164/84 (110) 95 07/13/17 16:45 97.6 86 17 144/77 (99) 98 Trach Collar 28 07/13/17 16:30 87 17 135/71 (92) 97 Trach Collar 28 07/13/17 16:15 86 16 138/69 (92) 94 Trach Collar 28 07/13/17 16:11 97.6 84 16 145/64 (91) 96 Trach Collar 28 07/13/17 12:00 72 07/13/17 12:00 98.3 72 20 147/71 (96) 100 07/13/17 11:26 97 Trach Collar 35 07/15/17 07:00 Output Total 0 ml Balance 0 ml Constitutional Vital Signs Date Time Temp Pulse Resp B/P (MAP) Pulse Ox O2 Delivery O2 Flow Rate FiO2 07/14/17 09:25 98 Trach Collar 5.00 28 07/14/17 08:00 98.2 95 20 157/73 (101) 99 07/14/17 08:00 30 07/14/17 08:00 95 07/14/17 06:38 100 100 07/14/17 06:25 98.8 77 21 161/79 (106) 100 07/14/17 06:24 30 07/14/17 06:23 79 07/14/17 02:50 75 07/14/17 01:18 30 07/14/17 01:18 73 19 129/67 (87) 99 07/14/17 01:10 73 07/14/17 01:05 100 30 07/13/17 23:23 76 07/13/17 21:40 100 30 07/13/17 20:17 97.8 87 22 111/56 (74) 97 07/13/17 20:00 87 07/13/17 19:00 97 Mechanical Ventilator 5.00 35 Trach Collar 07/13/17 17:15 86 07/13/17 17:15 86 21 164/84 (110) 95 07/13/17 16:45 97.6 86 17 144/77 (99) 98 Trach Collar 28 07/13/17 16:30 87 17 135/71 (92) 97 Trach Collar 28 07/13/17 16:15 86 16 138/69 (92) 94 Trach Collar 28 07/13/17 16:11 97.6 84 16 145/64 (91) 96 Trach Collar 28 07/13/17 12:00 72 07/13/17 12:00 98.3 72 20 147/71 (96) 100 07/13/17 11:26 97 Trach Collar 35 07/15/17 07:00 Output Total 0 ml Balance 0 ml (Bell Mooney) Review of Systems ROS Limitations: Clinical Condition (Bell Mooney) Physical Exam Ms. Patrick is awake, no acute distress. HEENT: Right SKIP MINER shunt with good bubble rebound. Incision clean and dry. Nonicteric sclera Cranial Nerves: Pupils equal, round reactive. Gross eoms intact, tracking. Cervical Spine: soft, supple Motor: moves extremities purposefully Sensory: withdraws to pain stimuli Heart: regular rate rhythm Lungs: clear Skin. warm and dry (Bell Mooney) Medications Current Medications Current Medications Medications (Trade) Dose Ordered Sig/Jose Guadalupe Route PRN Reason Start Time Stop Time Status Last Admin Dose Admin Sodium Chloride (NS Flush) 2 ml UNSCH PRN IV FLUSH FLUSH AFTER USING IV ACCESS 06/15/17 05:15 07/02/17 10:18 Ondansetron HCl (Zofran Inj) 4 mg Q6H PRN IV PUSH NAUSEA OR VOMITING 06/15/17 06:30 07/10/17 19:44 Miscellaneous Information 1 Q361D XX 06/15/17 06:30 06/15/17 06:30 Chlorhexidine Gluconate (Chlorhexidine 2% Cloth) Taper DAILY@04 TOP 06/16/17 04:00 06/12/18 03:59 06/20/17 04:00 Chlorhexidine Gluconate (Chlorhexidine 2% Cloth) 3 pack UNSCH PRN TOP HYGIENIC CARE 06/15/17 06:30 Magnesium Hydroxide (Milk Of Magnesia Liq) 30 ml Q12H PRN PO Mild constipation 06/15/17 06:30 06/22/17 20:58 Sennosides (Senokot) 17.2 mg Q12H PRN PO Moderate constipation 06/15/17 06:30 Bisacodyl (Dulcolax Supp) 10 mg DAILY PRN RECTAL SEVERE CONSITIPATION 06/15/17 06:30 Lactulose (Lactulose Liq) 30 ml DAILY PRN PO SEVERE CONSITIPATION 06/15/17 06:30 06/22/17 20:58 Chlorhexidine Gluconate (Peridex 0.12% Liq) 15 ml BID@08,20 MT 06/15/17 20:00 07/14/17 08:00 Pravastatin Sodium (Pravachol) 40 mg HS PO 06/18/17 21:00 07/13/17 22:15 Metoprolol Tartrate (Lopressor) 25 mg Q12HR PO 06/19/17 09:00 07/14/17 08:29 Hydralazine HCl (Apresoline Inj) 10 mg Q4H PRN IV PUSH SBP greater than 160 06/20/17 12:30 07/14/17 07:03 Albuterol Sulfate (Albuterol Neb) 2.5 mg Q2HR NEB PRN NEB dyspnea 06/27/17 09:15 07/11/17 19:52 Labetalol HCl (Trandate Inj) 10 mg Q1HR PRN IV PUSH SBP>160, DBP>90, HR>65 06/27/17 09:15 07/10/17 18:07 Propofol 100 ml @ 2.073 mls/ hr TITRATE PRN IV SEDATION 06/27/17 11:00 07/09/17 13:54 Fentanyl Citrate 250 ml @ 5 mls/hr TITRATE PRN IV SEDATION 06/27/17 11:00 07/06/17 04:21 Artificial Tears (Tears Naturale Opth Soln) 1 drop Q8HR EACH EYE 06/28/17 17:00 07/14/17 06:00 Polyethylene Glycol (Miralax) 17 gm BID PO 06/28/17 21:00 07/12/17 21:06 Metoclopramide HCl (Reglan Inj) 5 mg Q8HR IV PUSH 06/29/17 22:00 07/14/17 06:00 Docusate Sodium (Colace Liq) 100 mg Q12HR PO 06/29/17 21:00 07/13/17 22:15 Sennosides (Senna Liq) 8.8 mg BID PO 06/29/17 21:00 07/13/17 22:15 Folic Acid (Folate) 1 mg DAILY PO 07/04/17 09:15 07/14/17 08:30 Acetaminophen (Tylenol 650 Mg/ 20 ml Liq) 650 mg Q6H PRN PO fever 07/06/17 13:30 07/08/17 15:09 Famotidine (Pepcid) 10 mg BID PEG 07/11/17 21:00 07/14/17 08:30 Levetriacetam (Keppra) 500 mg Q12HR PEG 07/11/17 21:00 07/14/17 08:30 Sodium Chloride (Sodium Chloride) 1 gm Q12HR PO 07/12/17 13:15 07/14/17 08:30 Cefazolin Sodium/ Dextrose 50 ml @ 150 mls/hr CORPORATE LOGISTICS MANAGER IV 07/12/17 19:45 07/13/17 14:53 Vancomycin HCl 1000 mg/Sodium Chloride 250 ml @ 250 mls/hr CORPORATE LOGISTICS MANAGER IV 07/12/17 19:45 Potassium Chloride/Sodium Chloride 1,000 ml @ 100 mls/hr Q10H IV 07/13/17 16:38 07/14/17 02:47 Cefazolin Sodium/ Dextrose 50 ml @ 100 mls/hr Q8H IV 07/13/17 22:00 07/14/17 14:29 07/14/17 06:00 Pantoprazole Sodium (Protonix Inj) 40 mg DAILY IVP 07/14/17 09:00 Acetaminophen/ Hydrocodone Bitart ([place] 10-325 Mg) 1 tab Q4H PRN PO PAIN SCALE 1 TO 5 07/13/17 16:45 Acetaminophen/ Hydrocodone Bitart ([place] 10-325 Mg) 2 tab Q4H PRN PO PAIN SCALE 6 TO 10 07/13/17 16:45 Morphine Sulfate (Morphine Inj) 2 mg Q2H PRN IV PUSH PAIN SCALE 1 TO 6 07/13/17 16:45 Morphine Sulfate (Morphine Inj) 4 mg Q2H PRN IV PUSH PAIN SCALE 7 TO 10 07/13/17 16:45 Acetaminophen (Tylenol) 650 mg Q4H PRN PO TEMPERATURE > 101.5 F 07/13/17 16:45 Miscellaneous Information ALL NURSING DEPARTME... UNSCH PRN .XX SEE LABEL COMMENTS 07/13/17 16:08 07/14/17 16:07 (Bell Mooney) Medical Decision Making MDM Remarks 77 y/o female with large hemorrhagic stroke, she had evidence of hydrocephalus, she underwent placement of ventriculostomy drain 06/15/17 due to worsening mental status with improvement of mental status pt did not tolerate clamping of ventriculostomy drain, ventriculostomy drain replaced 06/27/17, SKIP MINER shunt held due to new right side stroke, rechallenging ventriculostomy, ventriculostomy drain clamped, follow-up CT brain 411 with persistent ventriculomegaly, EVD drain clamped for 48 hours, appearing more drowsy on examination 07/12/17. s/p placement of SKIP MINER shunt 07/13/17 (Bell Mooney) Plan Plan Remarks neuro stable, doing well cont current care cont therapy and rehab efforts (Bell Mooney) Attending Statement The exam, history, and the medical decision-making described in the above note were completed with the assistance of the mid-level provider. I reviewed and agree with the findings presented. I attest that I had a [id number] encounter with the patient on the same day, and personally performed and documented my assessment and findings in the medical record. (Andre Nixon MD) Bell Mooney Jul 14, 2017 09:53 Andre Nixon MD Jul 15, 2017 21:23
--- NOTE | 2017-07-14 10:48 | HHI.PR ---
Review/Management Diagnosis/Plan: (1) Acute ischemic left MCA stroke ICD Codes: I63.512 - Cerebral infarction due to unspecified occlusion or stenosis of left middle cerebral artery Status: Acute Plan: left posterior mca temp-occipital infarct carotid u/s rt carotid stenosis- doesn't explain infarct mra brain previous nml 06/17 lipids nml hyper coag labs-antithrombin 3 slightly elevated. elevated homocysteine eeg- no sz activity echo-LVEF 65-70% folic acid supplementation for hyperhomocysteinemia recs ct brain 07/14 stable; ivh with significant resolution of rt o-p ICH initiate aspirin once cleared by nsx (2) Intracranial hemorrhage ICD Codes: I62.9 - Nontraumatic intracranial hemorrhage, unspecified Status: Acute Plan: rt o-p ich large spontaneous, likely hypertensive mra brain-nml, s/p left vp customer service shunt 06/27 (3) Encephalopathy, metabolic ICD Codes: G93.41 - Metabolic encephalopathy Status: Acute Plan: due to ich (4) Hypertensive emergency ICD Codes: I16.1 - Hypertensive emergency Status: Acute Plan: improved on bp meds (5) [place] (acute kidney injury) ICD Codes: N17.9 - Acute kidney failure, unspecified Status: Acute Subjective Subjective Comments No acute events reported; no avila, no cp, no dyspnea Active Medications Current Medications Medications (Trade) Dose Ordered Sig/Jose Guadalupe Route Start Time Stop Time Status Last Admin (NS Flush) 2 ml UNSCH PRN IV FLUSH 06/15/17 05:15 07/02/17 10:18 (Zofran Inj) 4 mg Q6H PRN IV PUSH 06/15/17 06:30 07/10/17 19:44 Miscellaneous Information 1 Q361D XX 06/15/17 06:30 06/15/17 06:30 (Chlorhexidine 2% Cloth) Taper DAILY@04 TOP 06/16/17 04:00 06/12/18 03:59 06/20/17 04:00 (Chlorhexidine 2% Cloth) 3 pack UNSCH PRN TOP 06/15/17 06:30 (Milk Of Magnesia Liq) 30 ml Q12H PRN PO 06/15/17 06:30 06/22/17 20:58 (Senokot) 17.2 mg Q12H PRN PO 06/15/17 06:30 (Dulcolax Supp) 10 mg DAILY PRN RECTAL 06/15/17 06:30 (Lactulose Liq) 30 ml DAILY PRN PO 06/15/17 06:30 06/22/17 20:58 (Peridex 0.12% Liq) 15 ml BID@08,20 MT 06/15/17 20:00 07/14/17 08:00 (Pravachol) 40 mg HS PO 06/18/17 21:00 07/13/17 22:15 (Lopressor) 25 mg Q12HR PO 06/19/17 09:00 07/14/17 08:29 (Apresoline Inj) 10 mg Q4H PRN IV PUSH 06/20/17 12:30 07/14/17 07:03 (Albuterol Neb) 2.5 mg Q2HR NEB PRN NEB 06/27/17 09:15 07/11/17 19:52 (Trandate Inj) 10 mg Q1HR PRN IV PUSH 06/27/17 09:15 07/10/17 18:07 Propofol 100 ml @ 2.073 mls/ hr TITRATE PRN IV 06/27/17 11:00 07/09/17 13:54 Fentanyl Citrate 250 ml @ 5 mls/hr TITRATE PRN IV 06/27/17 11:00 07/06/17 04:21 (Tears Naturale Opth Soln) 1 drop Q8HR EACH EYE 06/28/17 17:00 07/14/17 06:00 (Miralax) 17 gm BID PO 06/28/17 21:00 07/12/17 21:06 (Reglan Inj) 5 mg Q8HR IV PUSH 06/29/17 22:00 07/14/17 06:00 (Colace Liq) 100 mg Q12HR PO 06/29/17 21:00 07/13/17 22:15 (Senna Liq) 8.8 mg BID PO 06/29/17 21:00 07/13/17 22:15 (Folate) 1 mg DAILY PO 07/04/17 09:15 07/14/17 08:30 (Tylenol 650 Mg/ 20 ml Liq) 650 mg Q6H PRN PO 07/06/17 13:30 07/08/17 15:09 (Pepcid) 10 mg BID PEG 07/11/17 21:00 07/14/17 08:30 (Keppra) 500 mg Q12HR PEG 07/11/17 21:00 07/14/17 08:30 (Sodium Chloride) 1 gm Q12HR PO 07/12/17 13:15 07/14/17 08:30 Cefazolin Sodium/ Dextrose 50 ml @ 150 mls/hr REAL ESTATE PHOTOGRAPHER IV 07/12/17 19:45 07/13/17 14:53 Vancomycin HCl 1000 mg/Sodium Chloride 250 ml @ 250 mls/hr REAL ESTATE PHOTOGRAPHER IV 07/12/17 19:45 Potassium Chloride/Sodium Chloride 1,000 ml @ 100 mls/hr Q10H IV 07/13/17 16:38 07/14/17 02:47 Cefazolin Sodium/ Dextrose 50 ml @ 100 mls/hr Q8H IV 07/13/17 22:00 07/14/17 14:29 07/14/17 06:00 (Protonix Inj) 40 mg DAILY IVP 07/14/17 09:00 ([place] 10-325 Mg) 1 tab Q4H PRN PO 07/13/17 16:45 ([place] 10-325 Mg) 2 tab Q4H PRN PO 07/13/17 16:45 (Morphine Inj) 2 mg Q2H PRN IV PUSH 07/13/17 16:45 (Morphine Inj) 4 mg Q2H PRN IV PUSH 07/13/17 16:45 (Tylenol) 650 mg Q4H PRN PO 07/13/17 16:45 Miscellaneous Information ALL NURSING DEPARTME... UNSCH PRN .XX 07/13/17 16:08 07/14/17 16:07 Allergies Allergies Coded Allergies No Known Allergies (Unverified Allergy, Unknown, 07/09/17) Review of Systems All other ROS: ROS reviewed as documented in chart Exam I&O / VS 07/14/17 07/14/17 07/15/17 15:00 23:00 07:00 Output Total 0 ml Balance 0 ml Tube Feeding Residual Discard 0 ml Vital Signs Date Time Temp Pulse Resp B/P (MAP) Pulse Ox O2 Delivery O2 Flow Rate FiO2 07/14/17 09:25 98 Trach Collar 5.00 28 07/14/17 09:25 98 Trach Collar 5.00 28 07/14/17 08:00 98.2 95 20 157/73 (101) 99 07/14/17 08:00 30 07/14/17 08:00 95 07/14/17 06:38 100 100 07/14/17 06:25 98.8 77 21 161/79 (106) 100 07/14/17 06:24 30 07/14/17 06:23 79 07/14/17 02:50 75 07/14/17 01:18 30 07/14/17 01:18 73 19 129/67 (87) 99 07/14/17 01:10 73 07/14/17 01:05 100 30 07/13/17 23:23 76 07/13/17 21:40 100 30 07/13/17 20:17 97.8 87 22 111/56 (74) 97 07/13/17 20:00 87 07/13/17 19:00 97 Mechanical Ventilator 5.00 35 Trach Collar 07/13/17 17:15 86 07/13/17 17:15 86 21 164/84 (110) 95 07/13/17 16:45 97.6 86 17 144/77 (99) 98 Trach Collar 28 07/13/17 16:30 87 17 135/71 (92) 97 Trach Collar 28 07/13/17 16:15 86 16 138/69 (92) 94 Trach Collar 28 07/13/17 16:11 97.6 84 16 145/64 (91) 96 Trach Collar 28 07/13/17 12:00 72 07/13/17 12:00 98.3 72 20 147/71 (96) 100 07/13/17 11:26 97 Trach Collar 35 Respiratory: Symmetrical expansion Exam Comments trach, alert, follows with left side, ou 2-1.5mm, left HH field defect, moves left side, rt hemiparesis 0-1/5 Objective Micro and Labs Laboratory Tests Test 07/13/17 15:12 CSF Volume (Tube 1) 6.0 CSF Supernatant Color (tube 1) SLIGHTLY XANTHOCHROM CSF WBC (Tube 1) 46 CSF RBC (Tube 1) 609 CSF Neutrophils 8 CSF Lymphocytes 70 CSF Monocytes 19 CSF Histiocytes 4 CSF Glucose 62 CSF Total Protein 43.1 Date/Time Source Procedure Growth Status 06/29/17 20:02 Blood Peripheral Aerobic Blood Culture - Final NO GROWTH IN 5 DAYS Complete 06/29/17 20:02 Blood Peripheral Anaerobic Blood Culture - Final NO GROWTH IN 5 DAYS Complete 07/13/17 15:12 Cerebral Spinal Fluid Shunt Fluid Gram Stain - Final Resulted 07/13/17 15:12 Cerebral Spinal Fluid Shunt Fluid CSF Culture - Preliminary NO GROWTH IN 24 HOURS. Resulted 06/30/17 12:30 Sputum Endotracheal Gram Stain - Final Complete 06/30/17 12:30 Sputum Culture - Final Klebsiella Pneumoniae Serratia Plymuthica Complete 07/12/17 14:42 Urine Catheterized Urine Urine Culture - Final Escherichia Coli Escherichia Coli Isolate 2 Complete Jose Cruz Crowell MD Jul 14, 2017 10:48
--- NOTE | 2017-07-14 13:09 | EKG ---
Date Performed: 07/13/2017 Time Performed: 09:28:42 PTAGE: 77 years EKG: Sinus rhythm Normal ECG ST-T abnormality resolved from prior tracing. PREVIOUS TRACING : 06/15/2017 06.27 DOCTOR: Ck Ann Interpretating Date/Time 07/14/2017 13:08:26
--- NOTE | 2017-07-14 16:01 | HHI.CCPN ---
Subjective Remarks/Hospital Course Severely dehydrated, elderly woman presents confused to [facility] ED with hypertensive urgency and semi-acute right hemispheric parenchymal brain hemorrhage. Arrived from [facility] on cardene gtt and aphasic. Handness not determined yet. Unable to get ROS. No anticoagulants. INR normal. 06/16: Flaccid left side. Minimal eye opening. Moves right arm and leg to stimulation. Breathes over vent. ICP control, EVD draining well. 06/17: Moving both arms, right much stronger. More alert but episodic apnea spells. 06/18: No events over the night. Patient remains intubated, off sedation. She is currently on pressure support, 01/04, doing well. Awake, following commands. Son present at bedside. T-max of 99.6. I/O 250/1545. 06/19: No events over the night. Patient did well yesterday on pressure support , but was not able to be extubated secondary to no cuff leak. She remains on Cardene currently at 9.5 mg/h. Afebrile with a T-max of 99.4. Negative fluid balance. 06/20: Patient did well over the night. T-max of 100.2. ICP of 4. Thick sputum secretions sent yesterday for culture now growing Staphylococcus. Patient is awake, off sedation following some commands. Off Cardene drip since yesterday. 06/21: Patient did well postextubation and over the night. T-max of 100 yesterday morning. Very good urine output. Patient awake following commands, denying any pain. 06/22: No events over the night. Patient doing well. She is awake and alert, denies headache, nausea, vomiting. No chest pain, no dyspnea, no palpitations. On 2 L nasal cannula. Afebrile over the last 24 hours. Diuresed well post Lasix and she is on negative fluid balance since admission. 06/23: Patient awake, feels better, denies chest pain, shortness of breath, palpitations, headache. Still has productive cough. Afebrile, urine output is adequate. 06/24: No events over the night. Patient afebrile over the last 24 hours. She remains awake, resting in bed, denies any complaints. Sons at bedside. 06/25: Resting comfortably. Drowsy, arousable. EVD at 15cm, drained 60 cc overnight. 06/26: Resting comfortably. Awake and alert. EVD in place drain 10 cc overnight however has some clear fluid draining around ventriculostomy site. Dr. Nixon planning PASSPORT APPLICATION EXAMINER shunt for tomorrow. 06/27: Afebrile. Less arousable today. Eyes are closed. Subjective left-sided weakness. EVD in place at 20 cm. 4 cc overnight. On cefazolin with clear fluid draining from ventriculostomy site. MRI brain currently pending. 06/28: Afebrile. Intubated yesterday secondary to altered mental status/ aspiration. Arousable and follows commands in the ventilator. 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 Echocardiogram pending. Possibly some right carotid stenosis on carotid ultrasound which does not correlate to this current acute left MCA CVA 06/29: Afebrile. More arousable today. Spontaneously moving left upper extremity. Opens eyes to voice. Not following commands. Tolerating tube feeds at goal. 06/30: Resting in bed in no acute distress. More arousable today. Spontaneously moving left upper extremity. Opens eyes to voice. No bowel movement 07/01: T-max 99.8. Currently 99.3. Opens eyes to voice. Squeezes bilateral hands right greater than left. Not following commands however. Tolerating spontaneous breathing trial 07/02: T-max 100.1. Currently afebrile. Did not tolerate CPAP trial today. Slightly more responsive today briefly follow commands right greater than left. Tolerating tube feeding. 07/03: Tolerating CPAP trial today. T-max 100.1. Currently 98.5. 2 bowel movements. More arousable and alert today 07/04: on PSV 10/5/40%. more awake today. follows commands. 07/05: continues to be more awake and alert, but also continues to fail CPAP trials. becomes tachypneic and distress. 07/06: Afebrile. Arousable and follows commands. Neurologically stable. Tolerating tube feeding. On PSV trial since 1050 but currently going to back up mode secondary to apnea. 07/07: Will trial SBTs daily, watch for apnea periods. 07/08: Fentanyl off and she is a little more active today. She may be blind. Unable to extubate today. 07/09: Remains intubated off sedation, ischial spontaneously open moves extremities spontaneously but intermittently. Do not follow commands. Too weak to protect airway successfully. Vent day will need trach and PEG, Dr. Nixon agrees. Will discuss with son. 07/10: Patient underwent percutaneous tracheostomy yesterday tolerated well. EVD raised to 20 yesterday tolerating well. GI consulted for PEG placement. Start weaning trials 07/11: Tolerating T piece, sleepy but wakes up easily following commands today bilateral upper and lower extremities. EVD remains clamped, CT from yesterday persistent hydrocephalus unchanged on my review 07/12: Patient remains on T piece since a.m., slightly more lethargic today but wakes up easily and follows commands. Per neurosurgery plan reopened EV drain today to 5 cm H20, if mentation improves and for PASSPORT APPLICATION EXAMINER shunt tomorrow. Also check UA, CBC CMP and chest x-ray. CSF Gram stain and culture sent. NACL tab started 07/13: s/p PASSPORT APPLICATION EXAMINER shunt today. doing well on t-piece. somnolent from anesthesia. Subjective 07/14: continues to do well on t-piece. no complaints. no changes to neuro exam. Objective Vital Signs Date Time Temp Pulse Resp B/P (MAP) Pulse Ox O2 Delivery O2 Flow Rate FiO2 07/14/17 12:00 91 07/14/17 12:00 98.0 20 132/58 (82) 100 07/14/17 09:25 Trach Collar 5.00 28 Intake and Output 07/14/17 07/14/17 07/15/17 08:00 16:00 00:00 Intake Total 200 ml 856 ml Output Total 1100.0 ml Balance -900.0 ml 856 ml Result Diagram: 07/13/17 0458 07/13/17 0458 Other Results Microbiology Date/Time Source Procedure Growth Status 07/12/17 14:42 Urine Catheterized Urine Urine Culture - Final Escherichia Coli Escherichia Coli Isolate 2 Complete Imaging Last Impressions Chest X-Ray 07/02/17 0600 Signed Impressions: Service Date/Time: Sunday, July 02, 2017 04:23 - CONCLUSION: No significant change Harsha Wen MD Abdomen X-Ray 07/01/17 0600 Signed Impressions: Service Date/Time: Saturday, July 01, 2017 04:18 - CONCLUSION: 1. Nonspecific bowel gas pattern without evidence for obstruction or free air. Ivan Bahena MD Carotid Artery Ultrasound 06/27/17 0000 Signed Impressions: Service Date/Time: Tuesday, June 27, 2017 12:59 - CONCLUSION: 1. Moderate diffuse atherosclerotic plaquing at both carotid bifurcations. 2. Mild elevated velocity in the proximal right internal carotid artery. If clinically indicated , recommend CTA of the carotid arteries for further evaluation. 3. No definite high grade or hemodynamically significant stenosis is demonstrated. David Moore MD Brain MRI 06/27/17 0000 Signed Impressions: Service Date/Time: Tuesday, June 27, 2017 09:23 - CONCLUSION: 1. New development of a nonhemorrhagic acute infarct involving the left occipital lobe. 2. Otherwise, the rest of the exam is stable compared to the prior MRI. David Moore MD Head CT 06/26/17 0000 Signed Impressions: Service Date/Time: Monday, June 26, 2017 10:08 - CONCLUSION: 1. Continued evolution of right cerebral hematoma with slightly increasing surrounding edema. 2. No new hemorrhage identified. 3. Continued ventricular dilatation with no further decompression following placement of ventriculostomy. 4. No significant shift of midline structures. Rene Lomeli MD Head Magnetic Resonance Angiography 06/15/17 0000 Signed Impressions: Service Date/Time: Thursday, June 15, 2017 11:52 - CONCLUSION: MRA within normal limits. There is a parenchymal hemorrhage in the posterior right temporal lobe with intraventricular extension. Iavn Bahena MD Objective Remarks General - 77-year-old female, on TP HEENT - pupils are equal, about 3 mm bilaterally, neck is supple. head wrapped in Kerlix. Neck: New trach in place with no significant bleeding CV -RRR. sinus, no JVD. Chest - Equal chest rise. unlabored, clear. Abdomen - soft, nontender, not distended, no guarding. bs active. Extremities -warm, 1+ edema, + peripheral pulses, well perfused. Neuro: Opens eyes, follows commands bilateral upper and lower extremities. A/P Problem List: (1) Hemorrhagic stroke ICD Code: I61.9 - Nontraumatic intracerebral hemorrhage, unspecified Status: Acute (2) Hypertensive urgency ICD Code: I16.0 - Hypertensive urgency Status: Acute (3) Encephalopathy, metabolic ICD Code: G93.41 - Metabolic encephalopathy Status: Acute (4) CLAYTON (acute kidney injury) ICD Code: N17.9 - Acute kidney failure, unspecified Status: Acute Assessment and Plan Neuro/Psych: Right posterior temporal/occipital/parietal intra-axial hematoma Left MCA posterior temporal occipital CVA Right complex partial seizure Wernicke aphasia Acute encephalopathy Following commands. s/p VPS 07/13. Ventriculostomy placed 06/27-neurosurgery managing CT brain 06/25 revealed a right occipital parietal intra-axial hematoma with mild surrounding edema. MRI brain revealed a left MCA CVA involving the left posterior temporal occipital region MRI brain admission revealed right posterior temporal hemorrhage with ventricular extension MRA brain negative for aneurysm CT head 07/10/17: Continued evolution of right occipital hemorrhage, IVH Carotid Dopplers with possible right carotid stenosis. Does not explain acute left MCA CVA. On levetiracetam 500 mg twice daily for seizure. Acetaminophen 650 mg p.o. every 6 hours as needed fever/pain Followed by Dr. Crowell neurology CV: Hypertensive emergency Dyslipidemia Currently on metoprolol 25 mg by mouth twice daily Currently on pravastatin 40 mg daily/on atorvastatin 40 mg daily at home Holding aspirin 81 mg daily in light of acute hemorrhage 06/29 echo - Normal left ventricular size. Mild concentric LVH. The left ventricular systolic function is hyperdynamic with an estimated ejection fraction in the range of 65-70%. Trace TR. The estimated PASP is 43 mmHg. Resp: Acute hypoxic and hypercarbic respiratory failure secondary to aspiration Reintubated secondary to new acute CVA with aspiration. S/p trach 07/09/17 TP as tolerated. Ventilator bundle. Albuterol/ipratropium aerosols every 6 hours alternate nebs with albuterol aerosols every 2 hours as needed dyspnea GI: Hypoalbuminemia Constipation Jevity 1.5 at 50 cc an hour at goal, s/p PEG tube placement Famotidine 20 mg twice daily for GI prophylaxis Docusate sodium/senna 1 tablet twice daily for bowel regimen. Continue polyethylene glycol 17 g twice daily, : no indication for kent catheter. Endo: Sliding scale insulin if indicated to maintain euglycemia Renal: Creatinine currently within normal limits Monitor urine output Accurate I's and O's Heme: Normocytic anemia Monitor CBC daily. Follow trend Hypercoagulable workup ID: JEANNA KayA and Klebsiella pneumonia Completed cefazolin 2 g IV every 8 hours day #7 -> done Switch to penicillin/tazobactam day #7 -> done Pertinent cultures 06/30 -sputum -Serratia Plymithica/Klebsiella pneumonia 06/29 -blood cultures 2 -no growth 06/18 -staph aureus/Klebsiella pneumonia sputum 07/12/17 UA and csf culture send FEN: Replace electrolytes as clinically indicated MSK: Osteoarthritis/osteoporosis Holding alendronate 70 mg weekly. Resume clinically indicated Access -Utilize peripheral IV. Central line if indicated Prophylaxis -GI -famotidine -DVT -SCD/holding pharmacological prophylaxis in light of cerebral hematoma. Initiate when okay with neurosurgery Overall impression: Stable hemodynamics. Tolerating TP. s/p tracheostomy . Need LTAC Mann Taylor MD Jul 14, 2017 16:01
[2017-07-14] MEDS: PRAVASTATIN SOD 40 MG TAB PO SCH (21:54)
[2017-07-15] VITALS (18 sets, daily range): BP systolic 127–164; BP diastolic 60–78; PULSE 75–98; RESP 16–26; TEMP 98.3–98.9; O2SAT 96–100
[2017-07-15] MEDS: CHLORHEXIDINE GLUCONATE 2 % 1 PACK (2 CLOTHS) TOP SCH (04:00)
[2017-07-15] MEDS: METOCLOPRAMIDE HCL 10 MG/2 ML VIAL IV PUSH SCH ×2 (06:00→15:42)
[2017-07-15] MEDS: ARTIFICIAL TEARS OPTH SOLN 15 ML BTL EACH EYE SCH ×2 (07:10→14:00)
[2017-07-15] MEDS: CHLORHEXIDINE 0.12% (ORAL KIT) 15 ML CUP MT SCH ×2 (08:00→20:25)
[2017-07-15] MEDS: PANTOPRAZOLE SODIUM 40 MG VIAL IVP SCH (08:56)
[2017-07-15] MEDS: DOCUSATE SODIUM 100 MG/10 ML UDC PO SCH ×2 (08:56→20:26)
[2017-07-15] MEDS: levETIRAcetam 500 MG TAB PEG SCH ×2 (08:57→20:26)
[2017-07-15] MEDS: METOPROLOL TARTRATE 25 MG TAB PO SCH ×2 (08:57→20:26)
[2017-07-15] MEDS: FAMOTIDINE 20 MG TAB PEG SCH ×2 (08:57→20:26)
[2017-07-15] MEDS: SODIUM CHLORIDE 1 GRAM TAB PO SCH ×2 (08:57→20:26)
[2017-07-15] MEDS: SENNOSIDES SYRUP 8.8 MG/5 ML CUP PO SCH ×2 (08:57→20:26)
[2017-07-15] MEDS: FOLIC ACID 1 MG TAB PO SCH (08:58)
[2017-07-15] MEDS: POLYETHYLENE GLYCOL 17 GM PKG PO SCH ×2 (08:58→20:26)
--- NOTE | 2017-07-15 09:51 | HHI.CCPN ---
Subjective Remarks/Hospital Course Severely dehydrated, elderly woman presents confused to [facility] ED with hypertensive urgency and semi-acute right hemispheric parenchymal brain hemorrhage. Arrived from [facility] on cardene gtt and aphasic. Handness not determined yet. Unable to get ROS. No anticoagulants. INR normal. 06/16: Flaccid left side. Minimal eye opening. Moves right arm and leg to stimulation. Breathes over vent. ICP control, EVD draining well. 06/17: Moving both arms, right much stronger. More alert but episodic apnea spells. 06/18: No events over the night. Patient remains intubated, off sedation. She is currently on pressure support, 01/04, doing well. Awake, following commands. Son present at bedside. T-max of 99.6. I/O 250/1545. 06/19: No events over the night. Patient did well yesterday on pressure support , but was not able to be extubated secondary to no cuff leak. She remains on Cardene currently at 9.5 mg/h. Afebrile with a T-max of 99.4. Negative fluid balance. 06/20: Patient did well over the night. T-max of 100.2. ICP of 4. Thick sputum secretions sent yesterday for culture now growing Staphylococcus. Patient is awake, off sedation following some commands. Off Cardene drip since yesterday. 06/21: Patient did well postextubation and over the night. T-max of 100 yesterday morning. Very good urine output. Patient awake following commands, denying any pain. 06/22: No events over the night. Patient doing well. She is awake and alert, denies headache, nausea, vomiting. No chest pain, no dyspnea, no palpitations. On 2 L nasal cannula. Afebrile over the last 24 hours. Diuresed well post Lasix and she is on negative fluid balance since admission. 06/23: Patient awake, feels better, denies chest pain, shortness of breath, palpitations, headache. Still has productive cough. Afebrile, urine output is adequate. 06/24: No events over the night. Patient afebrile over the last 24 hours. She remains awake, resting in bed, denies any complaints. Sons at bedside. 06/25: Resting comfortably. Drowsy, arousable. EVD at 15cm, drained 60 cc overnight. 06/26: Resting comfortably. Awake and alert. EVD in place drain 10 cc overnight however has some clear fluid draining around ventriculostomy site. Dr. Nixon planning SENIOR PHYSICIAN shunt for tomorrow. 06/27: Afebrile. Less arousable today. Eyes are closed. Subjective left-sided weakness. EVD in place at 20 cm. 4 cc overnight. On cefazolin with clear fluid draining from ventriculostomy site. MRI brain currently pending. 06/28: Afebrile. Intubated yesterday secondary to altered mental status/ aspiration. Arousable and follows commands in the ventilator. 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 Echocardiogram pending. Possibly some right carotid stenosis on carotid ultrasound which does not correlate to this current acute left MCA CVA 06/29: Afebrile. More arousable today. Spontaneously moving left upper extremity. Opens eyes to voice. Not following commands. Tolerating tube feeds at goal. 06/30: Resting in bed in no acute distress. More arousable today. Spontaneously moving left upper extremity. Opens eyes to voice. No bowel movement 07/01: T-max 99.8. Currently 99.3. Opens eyes to voice. Squeezes bilateral hands right greater than left. Not following commands however. Tolerating spontaneous breathing trial 07/02: T-max 100.1. Currently afebrile. Did not tolerate CPAP trial today. Slightly more responsive today briefly follow commands right greater than left. Tolerating tube feeding. 07/03: Tolerating CPAP trial today. T-max 100.1. Currently 98.5. 2 bowel movements. More arousable and alert today 07/04: on PSV 10/5/40%. more awake today. follows commands. 07/05: continues to be more awake and alert, but also continues to fail CPAP trials. becomes tachypneic and distress. 07/06: Afebrile. Arousable and follows commands. Neurologically stable. Tolerating tube feeding. On PSV trial since 1050 but currently going to back up mode secondary to apnea. 07/07: Will trial SBTs daily, watch for apnea periods. 07/08: Fentanyl off and she is a little more active today. She may be blind. Unable to extubate today. 07/09: Remains intubated off sedation, ischial spontaneously open moves extremities spontaneously but intermittently. Do not follow commands. Too weak to protect airway successfully. Vent day will need trach and PEG, Dr. Nixon agrees. Will discuss with son. 07/10: Patient underwent percutaneous tracheostomy yesterday tolerated well. EVD raised to 20 yesterday tolerating well. GI consulted for PEG placement. Start weaning trials 07/11: Tolerating T piece, sleepy but wakes up easily following commands today bilateral upper and lower extremities. EVD remains clamped, CT from yesterday persistent hydrocephalus unchanged on my review 07/12: Patient remains on T piece since a.m., slightly more lethargic today but wakes up easily and follows commands. Per neurosurgery plan reopened EV drain today to 5 cm H20, if mentation improves and for SENIOR PHYSICIAN shunt tomorrow. Also check UA, CBC CMP and chest x-ray. CSF Gram stain and culture sent. NACL tab started 07/13: s/p SENIOR PHYSICIAN shunt today. doing well on t-piece. somnolent from anesthesia. 07/14: continues to do well on t-piece. no complaints. no changes to neuro exam. Subjective 07/15: remains on t-piece. neuro exam stable. Objective Vital Signs Date Time Temp Pulse Resp B/P (MAP) Pulse Ox O2 Delivery O2 Flow Rate FiO2 07/15/17 06:00 75 07/15/17 04:00 30 07/15/17 04:00 98.8 26 153/77 (102) 98 07/14/17 21:27 Trach Collar 5.00 Intake and Output 07/15/17 07/15/17 07/16/17 08:00 16:00 00:00 Intake Total 672 ml Output Total 700 ml Balance -28 ml Result Diagram: 07/13/17 0458 07/13/17 0458 Other Results Microbiology Date/Time Source Procedure Growth Status 07/12/17 14:42 Urine Catheterized Urine Urine Culture - Final Escherichia Coli Escherichia Coli Isolate 2 Complete Imaging Last Impressions Chest X-Ray 07/02/17 06 Signed Impressions: Service Date/Time: Sunday, July 02, 2017 04:23 - CONCLUSION: No significant change Harsha Wen MD Abdomen X-Ray 07/01/17 06 Signed Impressions: Service Date/Time: Saturday, July 01, 2017 04:18 - CONCLUSION: 1. Nonspecific bowel gas pattern without evidence for obstruction or free air. Ivan Bahena MD Carotid Artery Ultrasound 06/27/17 0000 Signed Impressions: Service Date/Time: Tuesday, June 27, 2017 12:59 - CONCLUSION: 1. Moderate diffuse atherosclerotic plaquing at both carotid bifurcations. 2. Mild elevated velocity in the proximal right internal carotid artery. If clinically indicated , recommend CTA of the carotid arteries for further evaluation. 3. No definite high grade or hemodynamically significant stenosis is demonstrated. David Moore MD Brain MRI 06/27/17 0000 Signed Impressions: Service Date/Time: Tuesday, June 27, 2017 09:23 - CONCLUSION: 1. New development of a nonhemorrhagic acute infarct involving the left occipital lobe. 2. Otherwise, the rest of the exam is stable compared to the prior MRI. David Moore MD Head CT 06/26/17 0000 Signed Impressions: Service Date/Time: Monday, June 26, 2017 10:08 - CONCLUSION: 1. Continued evolution of right cerebral hematoma with slightly increasing surrounding edema. 2. No new hemorrhage identified. 3. Continued ventricular dilatation with no further decompression following placement of ventriculostomy. 4. No significant shift of midline structures. Rene Lomeli MD Head Magnetic Resonance Angiography 06/15/17 0000 Signed Impressions: Service Date/Time: Thursday, June 15, 2017 11:52 - CONCLUSION: MRA within normal limits. There is a parenchymal hemorrhage in the posterior right temporal lobe with intraventricular extension. Ivan Bahena MD Objective Remarks General - 77-year-old female, on TP HEENT - pupils are equal, about 3 mm bilaterally, neck is supple. head wrapped in Kerlix. Neck: New trach in place with no significant bleeding CV -RRR. sinus, no JVD. Chest - Equal chest rise. unlabored, clear. Abdomen - soft, nontender, not distended, no guarding. bs active. Extremities -warm, 1+ edema, + peripheral pulses, well perfused. Neuro: Opens eyes, follows commands bilateral upper and lower extremities. A/P Problem List: (1) Hemorrhagic stroke ICD Code: I61.9 - Nontraumatic intracerebral hemorrhage, unspecified Status: Acute (2) Hypertensive urgency ICD Code: I16.0 - Hypertensive urgency Status: Acute (3) Encephalopathy, metabolic ICD Code: G93.41 - Metabolic encephalopathy Status: Acute (4) CLAYTON (acute kidney injury) ICD Code: N17.9 - Acute kidney failure, unspecified Status: Acute Assessment and Plan Neuro/Psych: Right posterior temporal/occipital/parietal intra-axial hematoma Left MCA posterior temporal occipital CVA Right complex partial seizure Wernicke aphasia Acute encephalopathy Following commands. s/p VPS 07/13. Ventriculostomy placed 06/27-neurosurgery managing CT brain 06/25 revealed a right occipital parietal intra-axial hematoma with mild surrounding edema. MRI brain revealed a left MCA CVA involving the left posterior temporal occipital region MRI brain admission revealed right posterior temporal hemorrhage with ventricular extension MRA brain negative for aneurysm CT head 07/10/17: Continued evolution of right occipital hemorrhage, IVH Carotid Dopplers with possible right carotid stenosis. Does not explain acute left MCA CVA. On levetiracetam 500 mg twice daily for seizure. Acetaminophen 650 mg p.o. every 6 hours as needed fever/pain Followed by Dr. Crowell neurology CV: Hypertensive emergency Dyslipidemia Currently on metoprolol 25 mg by mouth twice daily Currently on pravastatin 40 mg daily/on atorvastatin 40 mg daily at home Holding aspirin 81 mg daily in light of acute hemorrhage 06/29 echo - Normal left ventricular size. Mild concentric LVH. The left ventricular systolic function is hyperdynamic with an estimated ejection fraction in the range of 65-70%. Trace TR. The estimated PASP is 43 mmHg. Resp: Acute hypoxic and hypercarbic respiratory failure secondary to aspiration Reintubated secondary to new acute CVA with aspiration. S/p trach 07/09/17 TP as tolerated. Ventilator bundle. Albuterol/ipratropium aerosols every 6 hours alternate nebs with albuterol aerosols every 2 hours as needed dyspnea GI: Hypoalbuminemia Constipation Jevity 1.5 at 50 cc an hour at goal, s/p PEG tube placement Famotidine 20 mg twice daily for GI prophylaxis Docusate sodium/senna 1 tablet twice daily for bowel regimen. Continue polyethylene glycol 17 g twice daily, : no indication for kent catheter. Endo: Sliding scale insulin if indicated to maintain euglycemia Renal: Creatinine currently within normal limits Monitor urine output Accurate I's and O's Heme: Normocytic anemia Monitor CBC daily. Follow trend Hypercoagulable workup ID: Serratia plymithica, MSSA and Klebsiella pneumonia Completed cefazolin 2 g IV every 8 hours day #7 -> done Switch to penicillin/tazobactam day #7 -> done Pertinent cultures 06/30 -sputum -Serratia Plymithica/Klebsiella pneumonia 06/29 -blood cultures 2 -no growth 06/18 -staph aureus/Klebsiella pneumonia sputum 07/12/17 UA and csf culture send FEN: Replace electrolytes as clinically indicated MSK: Osteoarthritis/osteoporosis Holding alendronate 70 mg weekly. Resume clinically indicated Access -Utilize peripheral IV. Prophylaxis -GI -famotidine -DVT -SCD/holding pharmacological prophylaxis in light of cerebral hematoma. Initiate when okay with neurosurgery Overall impression: Stable hemodynamics. Tolerating TP. s/p tracheostomy . Need LTAC stable for transfer to floor. consult hospitalist and gymnastic teacher for ongoing care. Mann Taylor MD Jul 15, 2017 09:51
--- NOTE | 2017-07-15 10:32 | HHI.PR ---
Review/Management Diagnosis/Plan: (1) Acute ischemic left MCA stroke ICD Codes: I63.512 - Cerebral infarction due to unspecified occlusion or stenosis of left middle cerebral artery Status: Acute Plan: left posterior mca temp-occipital infarct carotid u/s rt carotid stenosis- doesn't explain infarct mra brain previous nml 06/17 lipids nml hyper coag labs-antithrombin 3 slightly elevated. elevated homocysteine eeg- no sz activity echo-LVEF 65-70% folic acid supplementation for hyperhomocysteinemia ct brain 07/14 stable; ivh with significant resolution of rt o-p ICH recs neuro stable initiate aspirin once cleared by nsx (2) Intracranial hemorrhage ICD Codes: I62.9 - Nontraumatic intracranial hemorrhage, unspecified Status: Acute Plan: rt o-p ich large spontaneous, likely hypertensive mra brain-nml, s/p left vp digital marketing social media and crm shunt 06/27 (3) Encephalopathy, metabolic ICD Codes: G93.41 - Metabolic encephalopathy Status: Acute Plan: due to ich (4) Hypertensive emergency ICD Codes: I16.1 - Hypertensive emergency Status: Acute Plan: improved on bp meds (5) [place] (acute kidney injury) ICD Codes: N17.9 - Acute kidney failure, unspecified Status: Acute Subjective Subjective Comments No acute events reported No headache No chest pain No dyspnea Active Medications Current Medications Medications (Trade) Dose Ordered Sig/Jose Guadalupe Route Start Time Stop Time Status Last Admin (NS Flush) 2 ml UNSCH PRN IV FLUSH 06/15/17 05:15 07/02/17 10:18 (Zofran Inj) 4 mg Q6H PRN IV PUSH 06/15/17 06:30 07/10/17 19:44 Miscellaneous Information 1 Q361D XX 06/15/17 06:30 06/15/17 06:30 (Chlorhexidine 2% Cloth) Taper DAILY@04 TOP 06/16/17 04:00 06/12/18 03:59 06/20/17 04:00 (Chlorhexidine 2% Cloth) 3 pack UNSCH PRN TOP 06/15/17 06:30 (Milk Of Magnesia Liq) 30 ml Q12H PRN PO 06/15/17 06:30 06/22/17 20:58 (Senokot) 17.2 mg Q12H PRN PO 06/15/17 06:30 (Dulcolax Supp) 10 mg DAILY PRN RECTAL 06/15/17 06:30 (Lactulose Liq) 30 ml DAILY PRN PO 06/15/17 06:30 06/22/17 20:58 (Peridex 0.12% Liq) 15 ml BID@08,20 MT 06/15/17 20:00 07/15/17 08:00 (Pravachol) 40 mg HS PO 06/18/17 21:00 07/14/17 21:54 (Lopressor) 25 mg Q12HR PO 06/19/17 09:00 07/15/17 08:57 (Apresoline Inj) 10 mg Q4H PRN IV PUSH 06/20/17 12:30 07/14/17 21:54 (Albuterol Neb) 2.5 mg Q2HR NEB PRN NEB 06/27/17 09:15 07/11/17 19:52 (Trandate Inj) 10 mg Q1HR PRN IV PUSH 06/27/17 09:15 07/10/17 18:07 Propofol 100 ml @ 2.073 mls/ hr TITRATE PRN IV 06/27/17 11:00 07/09/17 13:54 Fentanyl Citrate 250 ml @ 5 mls/hr TITRATE PRN IV 06/27/17 11:00 07/06/17 04:21 (Tears Naturale Opth Soln) 1 drop Q8HR EACH EYE 06/28/17 17:00 07/15/17 07:10 (Miralax) 17 gm BID PO 06/28/17 21:00 07/15/17 08:58 (Reglan Inj) 5 mg Q8HR IV PUSH 06/29/17 22:00 07/15/17 06:00 (Colace Liq) 100 mg Q12HR PO 06/29/17 21:00 07/15/17 08:56 (Senna Liq) 8.8 mg BID PO 06/29/17 21:00 07/15/17 08:57 (Folate) 1 mg DAILY PO 07/04/17 09:15 07/15/17 08:58 (Tylenol 650 Mg/ 20 ml Liq) 650 mg Q6H PRN PO 07/06/17 13:30 07/08/17 15:09 (Pepcid) 10 mg BID PEG 07/11/17 21:00 07/15/17 08:57 (Keppra) 500 mg Q12HR PEG 07/11/17 21:00 07/15/17 08:57 (Sodium Chloride) 1 gm Q12HR PO 07/12/17 13:15 07/15/17 08:57 Cefazolin Sodium/ Dextrose 50 ml @ 150 mls/hr BARK GRINDER IV 07/12/17 19:45 07/13/17 14:53 Vancomycin HCl 1000 mg/Sodium Chloride 250 ml @ 250 mls/hr BARK GRINDER IV 07/12/17 19:45 (Protonix Inj) 40 mg DAILY IVP 07/14/17 09:00 07/15/17 08:56 ([place] 10-325 Mg) 1 tab Q4H PRN PO 07/13/17 16:45 ([place] 10-325 Mg) 2 tab Q4H PRN PO 07/13/17 16:45 (Morphine Inj) 2 mg Q2H PRN IV PUSH 07/13/17 16:45 (Morphine Inj) 4 mg Q2H PRN IV PUSH 07/13/17 16:45 (Tylenol) 650 mg Q4H PRN PO 07/13/17 16:45 Allergies Allergies Coded Allergies No Known Allergies (Unverified Allergy, Unknown, 07/09/17) Review of Systems All other ROS: ROS reviewed as documented in chart Exam I&O / VS Vital Signs Date Time Temp Pulse Resp B/P (MAP) Pulse Ox O2 Delivery O2 Flow Rate FiO2 07/15/17 10:18 97 30 07/15/17 10:18 30 07/15/17 06:00 75 07/15/17 04:00 30 07/15/17 04:00 78 07/15/17 04:00 98.8 98 26 153/77 (102) 98 07/15/17 03:06 99 30 07/15/17 02:00 82 07/15/17 00:32 100 30 07/15/17 00:00 88 07/15/17 00:00 28 07/15/17 00:00 98.7 88 25 127/60 (82) 97 07/14/17 22:00 89 07/14/17 21:27 99 30 07/14/17 21:27 97 Trach Collar 5.00 28 07/14/17 20:00 28 07/14/17 20:00 98.7 79 25 169/80 (109) 99 07/14/17 20:00 79 07/14/17 19:00 99 Trach Collar 5.00 28 07/14/17 16:00 81 07/14/17 16:00 98.5 81 24 151/61 (91) 100 07/14/17 12:00 91 07/14/17 12:00 98.0 83 20 132/58 (82) 100 Respiratory: Symmetrical expansion Exam Comments trach, alert, follows with left side, ou 2-1.5mm, left HH field defect, moves left side, rt hemiparesis 0-1/5 Objective Micro and Labs Date/Time Source Procedure Growth Status 06/29/17 20:02 Blood Peripheral Aerobic Blood Culture - Final NO GROWTH IN 5 DAYS Complete 06/29/17 20:02 Blood Peripheral Anaerobic Blood Culture - Final NO GROWTH IN 5 DAYS Complete 07/13/17 15:12 Cerebral Spinal Fluid Shunt Fluid Gram Stain - Final Resulted 07/13/17 15:12 Cerebral Spinal Fluid Shunt Fluid CSF Culture - Preliminary NO GROWTH IN 48 HOURS. Resulted 06/30/17 12:30 Sputum Endotracheal Gram Stain - Final Complete 06/30/17 12:30 Sputum Culture - Final Klebsiella Pneumoniae Serratia Plymuthica Complete 07/12/17 14:42 Urine Catheterized Urine Urine Culture - Final Escherichia Coli Escherichia Coli Isolate 2 Complete Jose Cruz Crowell MD Jul 15, 2017 10:32
--- NOTE | 2017-07-15 10:52 | HHI.NSPN ---
(Bell Mooney) Note Status Status: Progress Note (Bell Mooney) Interval History Interval History 77 year old female with large hemorrhage stroke with hydrocephalus, worsening mental status, patient became severely obtunded difficult to arouse, she underwent placement of ventriculostomy drain 06/15/1706/16: ventriculostomy draining well, intubated, opening eyes and moving right side spontaneously. 06/18: ventriculostomy draining well, remains intubated, opens eyes, tracks, moves right side, stable left paresis 06/19: ventriculostomy draining well, CSF still bloody, dark red. opens eyes and moves right side spontaneously 06/20: ventriculostomy draining well, still gross bloody CSF, intubated, but opens eyes and gave thumbs up to command 06/25: Awake, ventriculostomy draining, drain raised to 15 cm of water over the weekend with stable ICPs. 06/26: EVD raised to 20 cm H20 yesterday, ICPs remains stable overnight, however appears more lethargic today, minimally opens eyes but falls back asleep. 06/27: MRI Brain this morning with new acute nonhemorrhagic left occipital infarct. 06/28: left ventriculostomy draining well, intubated and sedated. 07/02: ventriculostomy draining well, remains intubated. ICPs low. 07/03: ICPs stable overnight, intubated, no sedatives, awake, following simple commands. ventriculostomy draining well. 07/04: remains awake, alert, follows commands. still intubated. ventriculostomy draining well, ICPs controlled overnight. 07/05: continues to be intubated, mildly sedated due to vent restlessness. ventriculostomy continues to drain well, ICPs stable. 07/06: remains intubated, CPAP trials continues. no change in neuro exam. EVD draining well. 07/09: ventriculostomy drain increased to 15 cm H20, awake, ICPs stable. 07/11: Ventriculostomy drain clamped overnight, follow-up CT brain this morning completed. Nursing reports patient at times alert, at times becomes drowsy and lethargic. Stable ICPs. 07/12: appearing more sleepier this morning. ICPs continues to be controlled. 07/13: For WOOL CARDER shunt placement today, EVD clamp 07/14: s/p WOOL CARDER shunt placement, appears more awake, alert, nodding, follows simple commands. 07/15: doing well, no changes neurologically overnight (Bell Mooney) Labs, Micro, & Vital Signs Results Date Time Temp Pulse Resp B/P (MAP) Pulse Ox O2 Delivery O2 Flow Rate FiO2 07/15/17 10:18 97 30 07/15/17 10:18 30 07/15/17 08:45 100 T-piece 5.00 28 07/15/17 08:00 28 07/15/17 07:00 97 Trach Collar 5.00 28 07/15/17 06:00 75 07/15/17 04:00 30 07/15/17 04:00 78 07/15/17 04:00 98.8 98 26 153/77 (102) 98 07/15/17 03:06 99 30 07/15/17 02:00 82 07/15/17 00:32 100 30 07/15/17 00:00 88 07/15/17 00:00 28 07/15/17 00:00 98.7 88 25 127/60 (82) 97 07/14/17 22:00 89 07/14/17 21:27 99 30 07/14/17 21:27 97 Trach Collar 5.00 28 07/14/17 20:00 28 07/14/17 20:00 98.7 79 25 169/80 (109) 99 07/14/17 20:00 79 07/14/17 19:00 99 Trach Collar 5.00 28 07/14/17 16:00 81 07/14/17 16:00 98.5 81 24 151/61 (91) 100 07/14/17 12:00 91 07/14/17 12:00 98.0 83 20 132/58 (82) 100 07/16/17 07:00 Output Total 0 ml Balance 0 ml Constitutional Vital Signs Date Time Temp Pulse Resp B/P (MAP) Pulse Ox O2 Delivery O2 Flow Rate FiO2 07/15/17 10:18 97 30 07/15/17 10:18 30 07/15/17 08:45 100 T-piece 5.00 28 07/15/17 08:00 28 07/15/17 07:00 97 Trach Collar 5.00 28 07/15/17 06:00 75 07/15/17 04:00 30 07/15/17 04:00 78 07/15/17 04:00 98.8 98 26 153/77 (102) 98 07/15/17 03:06 99 30 07/15/17 02:00 82 07/15/17 00:32 100 30 07/15/17 00:00 88 07/15/17 00:00 28 07/15/17 00:00 98.7 88 25 127/60 (82) 97 07/14/17 22:00 89 07/14/17 21:27 99 30 07/14/17 21:27 97 Trach Collar 5.00 28 07/14/17 20:00 28 07/14/17 20:00 98.7 79 25 169/80 (109) 99 07/14/17 20:00 79 07/14/17 19:00 99 Trach Collar 5.00 28 07/14/17 16:00 81 07/14/17 16:00 98.5 81 24 151/61 (91) 100 07/14/17 12:00 91 07/14/17 12:00 98.0 83 20 132/58 (82) 100 07/16/17 07:00 Output Total 0 ml Balance 0 ml (Bell Mooney) Review of Systems ROS Limitations: Clinical Condition, Speech Impaired (Bell Mooney) Physical Exam Ms. Patrick is awake, no acute distress. HEENT: Right WOOL CARDER shunt with good bubble rebound. Incision clean and dry. Nonicteric sclera Cranial Nerves: Pupils equal, round reactive. Gross eoms intact, tracking. Cervical Spine: soft, supple Motor: moves extremities purposefully Sensory: withdraws to pain stimuli Heart: regular rate rhythm Lungs: clear Skin. warm and dry (Bell Mooney) Medications Current Medications Current Medications Medications (Trade) Dose Ordered Sig/Jose Guadalupe Route PRN Reason Start Time Stop Time Status Last Admin Dose Admin Sodium Chloride (NS Flush) 2 ml UNSCH PRN IV FLUSH FLUSH AFTER USING IV ACCESS 06/15/17 05:15 07/02/17 10:18 Ondansetron HCl (Zofran Inj) 4 mg Q6H PRN IV PUSH NAUSEA OR VOMITING 06/15/17 06:30 07/10/17 19:44 Miscellaneous Information 1 Q361D XX 06/15/17 06:30 06/15/17 06:30 Chlorhexidine Gluconate (Chlorhexidine 2% Cloth) Taper DAILY@04 TOP 06/16/17 04:00 06/12/18 03:59 06/20/17 04:00 Chlorhexidine Gluconate (Chlorhexidine 2% Cloth) 3 pack UNSCH PRN TOP HYGIENIC CARE 06/15/17 06:30 Magnesium Hydroxide (Milk Of Magnesia Liq) 30 ml Q12H PRN PO Mild constipation 06/15/17 06:30 06/22/17 20:58 Sennosides (Senokot) 17.2 mg Q12H PRN PO Moderate constipation 06/15/17 06:30 Bisacodyl (Dulcolax Supp) 10 mg DAILY PRN RECTAL SEVERE CONSITIPATION 06/15/17 06:30 Lactulose (Lactulose Liq) 30 ml DAILY PRN PO SEVERE CONSITIPATION 06/15/17 06:30 06/22/17 20:58 Chlorhexidine Gluconate (Peridex 0.12% Liq) 15 ml BID@08,20 MT 06/15/17 20:00 07/15/17 08:00 Pravastatin Sodium (Pravachol) 40 mg HS PO 06/18/17 21:00 07/14/17 21:54 Metoprolol Tartrate (Lopressor) 25 mg Q12HR PO 06/19/17 09:00 07/15/17 08:57 Hydralazine HCl (Apresoline Inj) 10 mg Q4H PRN IV PUSH SBP greater than 160 06/20/17 12:30 07/14/17 21:54 Albuterol Sulfate (Albuterol Neb) 2.5 mg Q2HR NEB PRN NEB dyspnea 06/27/17 09:15 07/11/17 19:52 Labetalol HCl (Trandate Inj) 10 mg Q1HR PRN IV PUSH SBP>160, DBP>90, HR>65 06/27/17 09:15 07/10/17 18:07 Propofol 100 ml @ 2.073 mls/ hr TITRATE PRN IV SEDATION 06/27/17 11:00 07/09/17 13:54 Fentanyl Citrate 250 ml @ 5 mls/hr TITRATE PRN IV SEDATION 06/27/17 11:00 07/06/17 04:21 Artificial Tears (Tears Naturale Opth Soln) 1 drop Q8HR EACH EYE 06/28/17 17:00 07/15/17 07:10 Polyethylene Glycol (Miralax) 17 gm BID PO 06/28/17 21:00 07/15/17 08:58 Metoclopramide HCl (Reglan Inj) 5 mg Q8HR IV PUSH 06/29/17 22:00 07/15/17 06:00 Docusate Sodium (Colace Liq) 100 mg Q12HR PO 06/29/17 21:00 07/15/17 08:56 Sennosides (Senna Liq) 8.8 mg BID PO 06/29/17 21:00 07/15/17 08:57 Folic Acid (Folate) 1 mg DAILY PO 07/04/17 09:15 07/15/17 08:58 Acetaminophen (Tylenol 650 Mg/ 20 ml Liq) 650 mg Q6H PRN PO fever 07/06/17 13:30 07/08/17 15:09 Famotidine (Pepcid) 10 mg BID PEG 07/11/17 21:00 07/15/17 08:57 Levetriacetam (Keppra) 500 mg Q12HR PEG 07/11/17 21:00 07/15/17 08:57 Sodium Chloride (Sodium Chloride) 1 gm Q12HR PO 07/12/17 13:15 07/15/17 08:57 Cefazolin Sodium/ Dextrose 50 ml @ 150 mls/hr DETAIL SUPERVISOR IV 07/12/17 19:45 07/13/17 14:53 Vancomycin HCl 1000 mg/Sodium Chloride 250 ml @ 250 mls/hr DETAIL SUPERVISOR IV 07/12/17 19:45 Pantoprazole Sodium (Protonix Inj) 40 mg DAILY IVP 07/14/17 09:00 07/15/17 08:56 Acetaminophen/ Hydrocodone Bitart ([place] 10-325 Mg) 1 tab Q4H PRN PO PAIN SCALE 1 TO 5 07/13/17 16:45 Acetaminophen/ Hydrocodone Bitart ([place] 10-325 Mg) 2 tab Q4H PRN PO PAIN SCALE 6 TO 10 07/13/17 16:45 Morphine Sulfate (Morphine Inj) 2 mg Q2H PRN IV PUSH PAIN SCALE 1 TO 6 07/13/17 16:45 Morphine Sulfate (Morphine Inj) 4 mg Q2H PRN IV PUSH PAIN SCALE 7 TO 10 07/13/17 16:45 Acetaminophen (Tylenol) 650 mg Q4H PRN PO TEMPERATURE > 101.5 F 07/13/17 16:45 (Bell Mooney) Medical Decision Making MDM Remarks 77 y/o female with large hemorrhagic stroke, she had evidence of hydrocephalus, she underwent placement of ventriculostomy drain 06/15/17 due to worsening mental status with improvement of mental status pt did not tolerate clamping of ventriculostomy drain, ventriculostomy drain replaced 06/27/17, WOOL CARDER shunt held due to new right side stroke, rechallenging ventriculostomy, ventriculostomy drain clamped, follow-up CT brain 411 with persistent ventriculomegaly, EVD drain clamped for 48 hours, appearing more drowsy on examination 07/12/17. s/p placement of WOOL CARDER shunt 07/13/17 (Bell Mooney) Plan Plan Remarks neuro stable, doing well cont current care cont therapy and rehab efforts dc surgical nancy 07/25/17 ok to start anticoagulation therapy if needed tomorrow from NRS standpoint (Bell Mooney) Attending Statement The exam, history, and the medical decision-making described in the above note were completed with the assistance of the mid-level provider. I reviewed and agree with the findings presented. I attest that I had a [id number] encounter with the patient on the same day, and personally performed and documented my assessment and findings in the medical record. (Andre Nixon MD) Bell Mooney Jul 15, 2017 10:51 Andre Nixon MD Jul 17, 2017 17:59
[2017-07-15] MEDS: hydrALAZINE HCL 20 MG/ML VIAL IV PUSH PRN ×2 (12:19→20:28)
--- NOTE | 2017-07-15 13:48 | PD.CONS ---
History of Present Illness Service Pulmonary Consult Requested By Reason for Consult Tracheostomy management Primary Care Physician Sandi John MD Diagnoses: History of Present Illness Patient is a 77yo female who had hypertensive urgency and right ICH She had chronic respiratory failure and is s/p tracheostomy She is on T piece now and stable Review of Systems Except as stated in HPI: all other systems reviewed are Neg Past Family Social History Allergies: Coded Allergies: No Known Allergies (Unverified Allergy, Unknown, 07/09/17) Physical Exam Vital Signs Vital Signs Date Time Temp Pulse Resp B/P (MAP) Pulse Ox O2 Delivery O2 Flow Rate FiO2 07/15/17 12:00 28 07/15/17 12:00 98.9 78 18 161/77 (105) 100 07/15/17 12:00 78 07/15/17 10:18 97 30 07/15/17 10:18 30 07/15/17 10:00 86 07/15/17 08:45 100 T-piece 5.00 28 07/15/17 08:00 98.9 90 16 164/78 (106) 97 07/15/17 08:00 88 07/15/17 08:00 28 07/15/17 07:00 97 Trach Collar 5.00 28 07/15/17 06:00 75 07/15/17 04:00 30 07/15/17 04:00 78 07/15/17 04:00 98.8 98 26 153/77 (102) 98 07/15/17 03:06 99 30 07/15/17 02:00 82 07/15/17 00:32 100 30 07/15/17 00:00 88 07/15/17 00:00 28 07/15/17 00:00 98.7 88 25 127/60 (82) 97 07/14/17 22:00 89 07/14/17 21:27 99 30 07/14/17 21:27 97 Trach Collar 5.00 28 07/14/17 20:00 28 07/14/17 20:00 98.7 79 25 169/80 (109) 99 07/14/17 20:00 79 07/14/17 19:00 99 Trach Collar 5.00 28 07/14/17 16:00 81 07/14/17 16:00 98.5 81 24 151/61 (91) 100 Physical Exam GENERAL: This is a well-nourished, well-developed patient, in no apparent distress. SKIN: No rashes, ecchymoses or lesions. Cool and dry. HEAD: Atraumatic. Normocephalic. NECK: Trachea midline. No JVD or lymphadenopathy. S/p tracheostomy CARDIOVASCULAR: Regular rate and rhythm RESPIRATORY: Clear to auscultation. Breath sounds equal bilaterally. No wheezes , rales, or rhonchi. GASTROINTESTINAL: Abdomen soft, non-tender, nondistended.. MUSCULOSKELETAL: Extremities without clubbing, cyanosis, or edema. NEUROLOGICAL: Awake and alert. Laboratory Date/Time Source Procedure Growth Status 06/29/17 20:02 Blood Peripheral Aerobic Blood Culture - Final NO GROWTH IN 5 DAYS Complete 06/29/17 20:02 Blood Peripheral Anaerobic Blood Culture - Final NO GROWTH IN 5 DAYS Complete 07/13/17 15:12 Cerebral Spinal Fluid Shunt Fluid Gram Stain - Final Resulted 07/13/17 15:12 Cerebral Spinal Fluid Shunt Fluid CSF Culture - Preliminary NO GROWTH IN 48 HOURS. Resulted 06/30/17 12:30 Sputum Endotracheal Gram Stain - Final Complete 06/30/17 12:30 Sputum Culture - Final Klebsiella Pneumoniae Serratia Plymuthica Complete 07/12/17 14:42 Urine Catheterized Urine Urine Culture - Final Escherichia Coli Escherichia Coli Isolate 2 Complete Result Diagram: 07/13/17 0458 07/13/17457 Assessment and Plan Assessment and Plan S/p Right ICH Hypertensive urgency S/p tracheostomy S/p chronic respiratory failure Cont current tx Trach care Cont on t piece as tolerated Wean supplemental o2 to keep sats > 89% She needs LTAC Not candidate for decannulation at this time Thank you for this consultation Further orders per Addis Rowley Jul 15, 2017 13:48
[2017-07-15] MEDS: PRAVASTATIN SOD 40 MG TAB PO SCH (20:26)
[2017-07-16] VITALS (14 sets, daily range): BP systolic 134–172; BP diastolic 65–92; PULSE 78–106; RESP 18–29; TEMP 98.2–99.2; O2SAT 94–100
[2017-07-16] MEDS: ARTIFICIAL TEARS OPTH SOLN 15 ML BTL EACH EYE SCH ×4 (00:43→21:47)
[2017-07-16] MEDS: METOCLOPRAMIDE HCL 10 MG/2 ML VIAL IV PUSH SCH ×4 (00:43→21:47)
[2017-07-16] MEDS: CHLORHEXIDINE GLUCONATE 2 % 1 PACK (2 CLOTHS) TOP SCH (04:00)
[2017-07-16] MEDS: CHLORHEXIDINE 0.12% (ORAL KIT) 15 ML CUP MT SCH ×2 (08:00→19:23)
[2017-07-16] MEDS: POLYETHYLENE GLYCOL 17 GM PKG PO SCH ×2 (09:00→21:00)
[2017-07-16] MEDS: DOCUSATE SODIUM 100 MG/10 ML UDC PO SCH ×2 (09:00→21:00)
[2017-07-16] MEDS: SENNOSIDES SYRUP 8.8 MG/5 ML CUP PO SCH ×2 (09:00→21:00)
[2017-07-16 09:22] LABS: AUTOMATED NEUTROPHIL # 10.1 TH/MM3 (1.8-7.7); BASOPHIL # 0.1 TH/MM3 (0-0.2); BASOPHIL % 0.9 % (0.0-2.0); EOSINOPHIL # 0.1 TH/MM3 (0-0.4); EOSINOPHIL % 0.6 % (0.0-4.0); HEMATOCRIT 24.8 % (35.0-46.0); HEMOGLOBIN 8.4 GM/DL (11.6-15.3); LYMPH % 12.6 % (9.0-44.0); LYMPHOCYTE # 1.7 TH/MM3 (1.0-4.8); MEAN CELL VOLUME 89.3 FL (80.0-100.0); MEAN CORPUSCULAR HEMOGLOBIN 30.2 PG (27.0-34.0); MEAN CORPUSCULAR HGB CONC 33.9 % (32.0-36.0); MEAN PLATELET VOLUME 7.8 FL (7.0-11.0); MONO % 11.4 % (0.0-8.0); MONOCYTE # 1.5 TH/MM3 (0-0.9); NEUT % 74.5 % (16.0-70.0); PLATELET COUNT 376 TH/MM3 (150-450); RED BLOOD COUNT 2.77 MIL/MM3 (4.00-5.30); RED CELL DISTRIBUTION WIDTH 14.7 % (11.6-17.2); WHITE BLOOD COUNT 13.5 TH/MM3 (4.0-11.0)
[2017-07-16 09:50] LABS: ALBUMIN 1.9 GM/DL (3.4-5.0); BLOOD UREA NITROGEN 18 MG/DL (7-18); CALCIUM 8.8 MG/DL (8.5-10.1); CHLORIDE 103 MEQ/L (98-107); CREATININE 0.59 MG/DL (0.50-1.00); GLOMERULAR FILTRATION RATE 98 ML/MIN (>89); GLUCOSE,RANDOM 133 MG/DL (74-106); MAGNESIUM 1.7 MG/DL (1.5-2.5); SODIUM (NA) 137 MEQ/L (136-145)
[2017-07-16 09:52] LABS: ALT (GPT) 30 U/L (10-53); AST (GOT) 67 U/L (15-37)
[2017-07-16] MEDS: METOPROLOL TARTRATE 25 MG TAB PO SCH ×2 (09:59→21:46)
[2017-07-16] MEDS: levETIRAcetam 500 MG TAB PEG SCH ×2 (09:59→21:46)
[2017-07-16] MEDS: SODIUM CHLORIDE 1 GRAM TAB PO SCH ×2 (09:59→21:46)
[2017-07-16] MEDS: FOLIC ACID 1 MG TAB PO SCH (09:59)
[2017-07-16] MEDS: hydrALAZINE HCL 20 MG/ML VIAL IV PUSH PRN (09:59)
[2017-07-16] MEDS: FAMOTIDINE 20 MG TAB PEG SCH ×2 (09:59→21:46)
[2017-07-16] MEDS: PANTOPRAZOLE SODIUM 40 MG VIAL IVP SCH (10:00)
[2017-07-16 10:01] LABS: ALKALINE PHOSPHATASE 202 U/L (45-117); FREE T4 1.78 NG/DL (0.76-1.46); PHOSPHORUS 3.5 MG/DL (2.5-4.9); TOTAL BILIRUBIN ADULT 0.5 MG/DL (0.2-1.0); TOTAL PROTEIN 7.1 GM/DL (6.4-8.2)
--- NOTE | 2017-07-16 12:31 | HHI.NSPN ---
(Bell Mooney) Note Status Status: Progress Note (Bell Mooney) Interval History Interval History 77 year old female with large hemorrhage stroke with hydrocephalus, worsening mental status, patient became severely obtunded difficult to arouse, she underwent placement of ventriculostomy drain 06/15/1706/16: ventriculostomy draining well, intubated, opening eyes and moving right side spontaneously. 06/18: ventriculostomy draining well, remains intubated, opens eyes, tracks, moves right side, stable left paresis 06/19: ventriculostomy draining well, CSF still bloody, dark red. opens eyes and moves right side spontaneously 06/20: ventriculostomy draining well, still gross bloody CSF, intubated, but opens eyes and gave thumbs up to command 06/25: Awake, ventriculostomy draining, drain raised to 15 cm of water over the weekend with stable ICPs. 06/26: EVD raised to 20 cm H20 yesterday, ICPs remains stable overnight, however appears more lethargic today, minimally opens eyes but falls back asleep. 06/27: MRI Brain this morning with new acute nonhemorrhagic left occipital infarct. 06/28: left ventriculostomy draining well, intubated and sedated. 07/02: ventriculostomy draining well, remains intubated. ICPs low. 07/03: ICPs stable overnight, intubated, no sedatives, awake, following simple commands. ventriculostomy draining well. 07/04: remains awake, alert, follows commands. still intubated. ventriculostomy draining well, ICPs controlled overnight. 07/05: continues to be intubated, mildly sedated due to vent restlessness. ventriculostomy continues to drain well, ICPs stable. 07/06: remains intubated, CPAP trials continues. no change in neuro exam. EVD draining well. 07/09: ventriculostomy drain increased to 15 cm H20, awake, ICPs stable. 07/11: Ventriculostomy drain clamped overnight, follow-up CT brain this morning completed. Nursing reports patient at times alert, at times becomes drowsy and lethargic. Stable ICPs. 07/12: appearing more sleepier this morning. ICPs continues to be controlled. 07/13: For PICK UP ATTENDANT shunt placement today, EVD clamp 07/14: s/p PICK UP ATTENDANT shunt placement, appears more awake, alert, nodding, follows simple commands. 07/15: doing well, no changes neurologically overnight 07/16: Some increased and frothy secretions per nursing (Bell Mooney) Labs, Micro, & Vital Signs Results Date Time Temp Pulse Resp B/P (MAP) Pulse Ox O2 Delivery O2 Flow Rate FiO2 07/16/17 08:03 94 T-piece 28 07/16/17 06:00 90 07/16/17 04:00 98.2 80 24 148/76 (100) 100 07/16/17 04:00 81 07/16/17 04:00 28 07/16/17 02:00 82 07/16/17 00:00 28 07/16/17 00:00 88 07/16/17 00:00 98.2 88 25 138/65 (89) 98 07/15/17 22:00 85 07/15/17 21:46 98 Simple Mask 6.00 07/15/17 21:36 96 T-piece 6.00 28 07/15/17 20:00 98.3 78 25 161/77 (105) 99 07/15/17 20:00 77 07/15/17 20:00 28 07/15/17 19:00 98 Trach Collar 5.00 28 07/15/17 18:00 79 07/15/17 16:00 79 07/15/17 16:00 28 07/15/17 16:00 98.6 79 17 156/70 (98) 98 07/15/17 14:00 79 Constitutional Vital Signs Date Time Temp Pulse Resp B/P (MAP) Pulse Ox O2 Delivery O2 Flow Rate FiO2 07/16/17 08:03 94 T-piece 28 07/16/17 06:00 90 07/16/17 04:00 98.2 80 24 148/76 (100) 100 07/16/17 04:00 81 07/16/17 04:00 28 07/16/17 02:00 82 07/16/17 00:00 28 07/16/17 00:00 88 07/16/17 00:00 98.2 88 25 138/65 (89) 98 07/15/17 22:00 85 07/15/17 21:46 98 Simple Mask 6.00 07/15/17 21:36 96 T-piece 6.00 28 07/15/17 20:00 98.3 78 25 161/77 (105) 99 07/15/17 20:00 77 07/15/17 20:00 28 07/15/17 19:00 98 Trach Collar 5.00 28 07/15/17 18:00 79 07/15/17 16:00 79 07/15/17 16:00 28 07/15/17 16:00 98.6 79 17 156/70 (98) 98 07/15/17 14:00 77 (Bell Mooney) Review of Systems ROS Limitations: Speech Impaired (Bell Mooney) Physical Exam Ms. Patrick is appears more drowsy today, not as alert as yesterday. HEENT: Left ventriculostomy drain clamped, ICP normal. Site without signs of infection. Nonicteric sclera Cranial Nerves: Pupils equal, round reactive. Gross eoms intact, tracking. Cervical Spine: soft, supple Motor: not consistently following commands, intermittent movements of extremities Sensory: withdraws to pain stimuli Heart: regular rate rhythm Lungs: clear Skin. warm and dry (Bell Mooney) Medications Current Medications Current Medications Medications (Trade) Dose Ordered Sig/Jose Guadalupe Route PRN Reason Start Time Stop Time Status Last Admin Dose Admin Sodium Chloride (NS Flush) 2 ml UNSCH PRN IV FLUSH FLUSH AFTER USING IV ACCESS 06/15/17 05:15 07/02/17 10:18 Ondansetron HCl (Zofran Inj) 4 mg Q6H PRN IV PUSH NAUSEA OR VOMITING 06/15/17 06:30 07/10/17 19:44 Miscellaneous Information 1 [id number] XX 06/15/17 06:30 06/15/17 06:30 Chlorhexidine Gluconate (Chlorhexidine 2% Cloth) Taper DAILY@04 TOP 06/16/17 04:00 06/12/18 03:59 06/20/17 04:00 Chlorhexidine Gluconate (Chlorhexidine 2% Cloth) 3 pack UNSCH PRN TOP HYGIENIC CARE 06/15/17 06:30 Magnesium Hydroxide (Milk Of Magnesia Liq) 30 ml Q12H PRN PO Mild constipation 06/15/17 06:30 06/22/17 20:58 Sennosides (Senokot) 17.2 mg Q12H PRN PO Moderate constipation 06/15/17 06:30 Bisacodyl (Dulcolax Supp) 10 mg DAILY PRN RECTAL SEVERE CONSITIPATION 06/15/17 06:30 Lactulose (Lactulose Liq) 30 ml DAILY PRN PO SEVERE CONSITIPATION 06/15/17 06:30 06/22/17 20:58 Chlorhexidine Gluconate (Peridex 0.12% Liq) 15 ml BID@08,20 MT 06/15/17 20:00 07/16/17 08:00 Pravastatin Sodium (Pravachol) 40 mg HS PO 06/18/17 21:00 07/15/17 20:26 Metoprolol Tartrate (Lopressor) 25 mg Q12HR PO 06/19/17 09:00 07/16/17 09:59 Hydralazine HCl (Apresoline Inj) 10 mg Q4H PRN IV PUSH SBP greater than 160 06/20/17 12:30 07/16/17 09:59 Albuterol Sulfate (Albuterol Neb) 2.5 mg Q2HR NEB PRN NEB dyspnea 06/27/17 09:15 07/11/17 19:52 Labetalol HCl (Trandate Inj) 10 mg Q1HR PRN IV PUSH SBP>160, DBP>90, HR>65 06/27/17 09:15 07/10/17 18:07 Propofol 100 ml @ 2.073 mls/ hr TITRATE PRN IV SEDATION 06/27/17 11:00 07/09/17 13:54 Fentanyl Citrate 250 ml @ 5 mls/hr TITRATE PRN IV SEDATION 06/27/17 11:00 07/06/17 04:21 Artificial Tears (Tears Naturale Opth Soln) 1 drop Q8HR EACH EYE 06/28/17 17:00 07/16/17 06:21 Polyethylene Glycol (Miralax) 17 gm BID PO 06/28/17 21:00 07/15/17 08:58 Metoclopramide HCl (Reglan Inj) 5 mg Q8HR IV PUSH 06/29/17 22:00 07/16/17 06:21 Docusate Sodium (Colace Liq) 100 mg Q12HR PO 06/29/17 21:00 07/15/17 08:56 Sennosides (Senna Liq) 8.8 mg BID PO 06/29/17 21:00 07/15/17 08:57 Folic Acid (Folate) 1 mg DAILY PO 07/04/17 09:15 07/16/17 09:59 Acetaminophen (Tylenol 650 Mg/ 20 ml Liq) 650 mg Q6H PRN PO fever 07/06/17 13:30 07/08/17 15:09 Famotidine (Pepcid) 10 mg BID PEG 07/11/17 21:00 07/16/17 09:59 Levetriacetam (Keppra) 500 mg Q12HR PEG 07/11/17 21:00 07/16/17 09:59 Sodium Chloride (Sodium Chloride) 1 gm Q12HR PO 07/12/17 13:15 07/16/17 09:59 Cefazolin Sodium/ Dextrose 50 ml @ 150 mls/hr LOGGER ALL ROUND IV 07/12/17 19:45 07/13/17 14:53 Vancomycin HCl 1000 mg/Sodium Chloride 250 ml @ 250 mls/hr LOGGER ALL ROUND IV 07/12/17 19:45 Pantoprazole Sodium (Protonix Inj) 40 mg DAILY IVP 07/14/17 09:00 07/16/17 10:00 Acetaminophen/ Hydrocodone Bitart ([place] 10-325 Mg) 1 tab Q4H PRN PO PAIN SCALE 1 TO 5 07/13/17 16:45 Acetaminophen/ Hydrocodone Bitart ([place] 10-325 Mg) 2 tab Q4H PRN PO PAIN SCALE 6 TO 10 07/13/17 16:45 Morphine Sulfate (Morphine Inj) 2 mg Q2H PRN IV PUSH PAIN SCALE 1 TO 6 07/13/17 16:45 Morphine Sulfate (Morphine Inj) 4 mg Q2H PRN IV PUSH PAIN SCALE 7 TO 10 07/13/17 16:45 Acetaminophen (Tylenol) 650 mg Q4H PRN PO TEMPERATURE > 101.5 F 07/13/17 16:45 (Bell Mooney) Medical Decision Making MDM Remarks 77 y/o female with large hemorrhagic stroke, she had evidence of hydrocephalus, she underwent placement of ventriculostomy drain 3/16/18 due to worsening mental status with improvement of mental status pt did not tolerate clamping of ventriculostomy drain, ventriculostomy drain replaced 06/27/17, PICK UP ATTENDANT shunt held due to new right side stroke, rechallenging ventriculostomy, ventriculostomy drain clamped, follow-up CT brain 411 with persistent ventriculomegaly, EVD drain clamped for 48 hours, appearing more drowsy on examination 07/12/17. s/p placement of PICK UP ATTENDANT shunt 07/13/17 (Bell Mooney) Plan Plan Remarks neuro stable, doing well cont current care cont therapy and rehab efforts dc surgical nancy 07/25/17 ok to start anticoagulation therapy if needed from NRS standpoint Hold transfer to floor per Dr. Nixon due to increased respiratory secretion Discussed with nursing (Bell Mooney) Attending Statement The exam, history, and the medical decision-making described in the above note were completed with the assistance of the mid-level provider. I reviewed and agree with the findings presented. I attest that I had a [id number] encounter with the patient on the same day, and personally performed and documented my assessment and findings in the medical record. (Andre Nixon MD) Bell Mooney Jul 16, 2017 12:31 Andre Nixon MD Jul 17, 2017 18:05
--- NOTE | 2017-07-16 14:51 | HHI.PR ---
Subjective Remarks Severely dehydrated, elderly woman presents confused to [facility] ED with hypertensive urgency and semi-acute right hemispheric parenchymal brain hemorrhage. Arrived from [facility] on cardene gtt and aphasic. Handness not determined yet. Unable to get ROS. No anticoagulants. INR normal. 06/16: Flaccid left side. Minimal eye opening. Moves right arm and leg to stimulation. Breathes over vent. ICP control, EVD draining well. 06/17: Moving both arms, right much stronger. More alert but episodic apnea spells. 06/18: No events over the night. Patient remains intubated, off sedation. She is currently on pressure support, 01/04, doing well. Awake, following commands. Son present at bedside. T-max of 99.6. I/O 250/1545. 06/19: No events over the night. Patient did well yesterday on pressure support , but was not able to be extubated secondary to no cuff leak. She remains on Cardene currently at 9.5 mg/h. Afebrile with a T-max of 99.4. Negative fluid balance. 06/20: Patient did well over the night. T-max of 100.2. ICP of 4. Thick sputum secretions sent yesterday for culture now growing Staphylococcus. Patient is awake, off sedation following some commands. Off Cardene drip since yesterday. 06/21: Patient did well postextubation and over the night. T-max of 100 yesterday morning. Very good urine output. Patient awake following commands, denying any pain. 06/22: No events over the night. Patient doing well. She is awake and alert, denies headache, nausea, vomiting. No chest pain, no dyspnea, no palpitations. On 2 L nasal cannula. Afebrile over the last 24 hours. Diuresed well post Lasix and she is on negative fluid balance since admission. 06/23: Patient awake, feels better, denies chest pain, shortness of breath, palpitations, headache. Still has productive cough. Afebrile, urine output is adequate. 06/24: No events over the night. Patient afebrile over the last 24 hours. She remains awake, resting in bed, denies any complaints. Sons at bedside. 06/25: Resting comfortably. Drowsy, arousable. EVD at 15cm, drained 60 cc overnight. 06/26: Resting comfortably. Awake and alert. EVD in place drain 10 cc overnight however has some clear fluid draining around ventriculostomy site. Dr. Nixon planning [employer] shunt for tomorrow. 06/27: Afebrile. Less arousable today. Eyes are closed. Subjective left-sided weakness. EVD in place at 20 cm. 4 cc overnight. On cefazolin with clear fluid draining from ventriculostomy site. MRI brain currently pending. 06/28: Afebrile. Intubated yesterday secondary to altered mental status/ aspiration. Arousable and follows commands in the ventilator. 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 Echocardiogram pending. Possibly some right carotid stenosis on carotid ultrasound which does not correlate to this current acute left MCA CVA 06/29: Afebrile. More arousable today. Spontaneously moving left upper extremity. Opens eyes to voice. Not following commands. Tolerating tube feeds at goal. 06/30: Resting in bed in no acute distress. More arousable today. Spontaneously moving left upper extremity. Opens eyes to voice. No bowel movement 07/01: T-max 99.8. Currently 99.3. Opens eyes to voice. Squeezes bilateral hands right greater than left. Not following commands however. Tolerating spontaneous breathing trial 07/02: T-max 100.1. Currently afebrile. Did not tolerate CPAP trial today. Slightly more responsive today briefly follow commands right greater than left. Tolerating tube feeding. 07/03: Tolerating CPAP trial today. T-max 100.1. Currently 98.5. 2 bowel movements. More arousable and alert today 07/04: on PSV 01/04/40%. more awake today. follows commands. 07/05: continues to be more awake and alert, but also continues to fail CPAP trials. becomes tachypneic and distress. 07/06: Afebrile. Arousable and follows commands. Neurologically stable. Tolerating tube feeding. On PSV trial since 1050 but currently going to back up mode secondary to apnea. 07/07: Will trial SBTs daily, watch for apnea periods. 07/08: Fentanyl off and she is a little more active today. She may be blind. Unable to extubate today. 07/09: Remains intubated off sedation, ischial spontaneously open moves extremities spontaneously but intermittently. Do not follow commands. Too weak to protect airway successfully. Vent will need trach and PEG, Dr. Nixon agrees. Will discuss with son. 07/10: Patient underwent percutaneous tracheostomy yesterday tolerated well. EVD raised to 20 yesterday tolerating well. GI consulted for PEG placement. Start weaning trials 07/11: Tolerating T piece, sleepy but wakes up easily following commands today bilateral upper and lower extremities. EVD remains clamped, CT from yesterday persistent hydrocephalus unchanged on my review 07/12: Patient remains on T piece since a.m., slightly more lethargic today but wakes up easily and follows commands. Per neurosurgery plan reopened EV drain today to 5 cm H20, if mentation improves and for [employer] shunt tomorrow. Also check UA, CBC CMP and chest x-ray. CSF Gram stain and culture sent. NACL tab started 07/13: s/p [employer] shunt today. doing well on t-piece. somnolent from anesthesia. 07/14: continues to do well on t-piece. no complaints. no changes to neuro exam. 07/15: remains on t-piece. neuro exam stable. 07-16 TRANSFERRED TO OUR SERVICE TODAY STILL HAVING LOTS OF SECRETIONS TRY LEVSIN ON 100% OXYGEN NOW WILL KEEP IN ICU AT THIS TIME DW RN PATIENT NON VERBAL FOLLOWING NO COMMANDS Objective Vitals Vital Signs Date Time Temp Pulse Resp B/P (MAP) Pulse Ox O2 Delivery O2 Flow Rate FiO2 07/16/17 08:03 94 T-piece 28 07/16/17 06:00 90 07/16/17 04:00 98.2 80 24 148/76 (100) 100 07/16/17 04:00 81 07/16/17 04:00 28 07/16/17 02:00 82 07/16/17 00:00 28 07/16/17 00:00 88 07/16/17 00:00 98.2 88 25 138/65 (89) 98 07/15/17 22:00 85 07/15/17 21:46 98 Simple Mask 6.00 07/15/17 21:36 96 T-piece 6.00 28 07/15/17 20:00 98.3 78 25 161/77 (105) 99 07/15/17 20:00 77 4/15/18 20:00 28 07/15/17 19:00 98 Trach Collar 5.00 28 07/15/17 18:00 79 07/15/17 16:00 79 07/15/17 16:00 28 07/15/17 16:00 98.6 79 17 156/70 (98) 98 I/O 07/15/17 07/15/17 07/15/17 07/16/17 07/16/17 07/16/17 07:00 15:00 23:00 07:00 15:00 23:00 Intake Total 672 ml 478 ml 577 ml Output Total 700 ml 0 ml 400 ml Balance -28 ml 0 ml 478 ml 177 ml Intake Oral 0 ml IV Total 20 ml Tube Feeding 652 ml 478 ml 537 ml Tube Irrigant 20 ml 20 ml Output Urine Total 700 ml 400 ml Tube Feeding Residual Discard 0 ml # Voids 3 1 # Bowel Movements 1 1 0 Result Diagram: 07/16/17 0754 07/16/17 0754 Other Results Laboratory Tests Test 07/13/17 15:12 07/16/17 07:54 CSF Volume (Tube 1) 6.0 ML CSF Supernatant Color (tube 1) SLIGHTLY XANTHOCHROM CSF WBC (Tube 1) 46 /MM3 CSF RBC (Tube 1) 609 /MM3 CSF Neutrophils 8 % CSF Lymphocytes 70 % CSF Monocytes 19 % CSF Histiocytes 4 % CSF Glucose 62 MG/DL CSF Total Protein 43.1 MG/DL White Blood Count 13.5 TH/MM3 Red Blood Count 2.77 MIL/MM3 Hemoglobin 8.4 GM/DL Hematocrit 24.8 % Mean Corpuscular Volume 89.3 FL Mean Corpuscular Hemoglobin 30.2 PG Mean Corpuscular Hemoglobin Concent 33.9 % Red Cell Distribution Width 14.7 % Platelet Count 376 TH/MM3 Mean Platelet Volume 7.8 FL Neutrophils (%) (Auto) 74.5 % Lymphocytes (%) (Auto) 12.6 % Monocytes (%) (Auto) 11.4 % Eosinophils (%) (Auto) 0.6 % Basophils (%) (Auto) 0.9 % Neutrophils # (Auto) 10.1 TH/MM3 Lymphocytes # (Auto) 1.7 TH/MM3 Monocytes # (Auto) 1.5 TH/MM3 Eosinophils # (Auto) 0.1 TH/MM3 Basophils # (Auto) 0.1 TH/MM3 CBC Comment AUTO DIFF Differential Comment AUTO DIFF CONFIRMED Platelet Estimate NORMAL Platelet Morphology Comment NORMAL Red Cell Morphology Comment NORMAL Blood Urea Nitrogen 18 MG/DL Creatinine 0.59 MG/DL Random Glucose 133 MG/DL Total Protein 7.1 GM/DL Albumin 1.9 GM/DL Calcium Level 8.8 MG/DL Phosphorus Level 3.5 MG/DL Magnesium Level 1.7 MG/DL Alkaline Phosphatase 202 U/L Aspartate Amino Transf (AST/SGOT) 67 U/L Alanine Aminotransferase (ALT/SGPT) 30 U/L Total Bilirubin 0.5 MG/DL Sodium Level 137 MEQ/L Potassium Level 4.2 MEQ/L Chloride Level 103 MEQ/L Carbon Dioxide Level 26.0 MEQ/L Anion Gap 8 MEQ/L Estimat Glomerular Filtration Rate 98 ML/MIN Free Thyroxine 1.78 NG/DL Thyroid Stimulating Hormone 3rd Gen 0.197 uIU/ML Imaging Last Impressions Head CT 07/14/17 0000 Signed Impressions: Service Date/Time: Friday, July 14, 2017 04:39 - CONCLUSION: 1. Postsurgical changes as above. no acute hemorrhage is identified. Elijah Cortez MD Chest X-Ray 07/13/17 0600 Signed Impressions: Service Date/Time: Thursday, July 13, 2017 03:37 - CONCLUSION: Improving aeration Harsha Wen MD Abdomen X-Ray 07/01/17 0600 Signed Impressions: Service Date/Time: Saturday, July 01, 2017 04:18 - CONCLUSION: 1. Nonspecific bowel gas pattern without evidence for obstruction or free air. Ivan Bahena MD Carotid Artery Ultrasound 06/27/17 0000 Signed Impressions: Service Date/Time: Tuesday, June 27, 2017 12:59 - CONCLUSION: 1. Moderate diffuse atherosclerotic plaquing at both carotid bifurcations. 2. Mild elevated velocity in the proximal right internal carotid artery. If clinically indicated , recommend CTA of the carotid arteries for further evaluation. 3. No definite high grade or hemodynamically significant stenosis is demonstrated. David Moore MD Brain MRI 06/27/17 0000 Signed Impressions: Service Date/Time: Tuesday, June 27, 2017 09:23 - CONCLUSION: 1. New development of a nonhemorrhagic acute infarct involving the left occipital lobe. 2. Otherwise, the rest of the exam is stable compared to the prior MRI. David Moore MD Head Magnetic Resonance Angiography 06/15/17 0000 Signed Impressions: Service Date/Time: Thursday, June 15, 2017 11:52 - CONCLUSION: MRA within normal limits. There is a parenchymal hemorrhage in the posterior right temporal lobe with intraventricular extension. Ivan Bahena MD Objective Remarks GENERAL: Awake alert follows no commands at this time right-sided [employer] shunt SKIN: Warm and dry. HEAD: Atraumatic. Normocephalic. Right-sided [employer] shunt EYES: Pupils equal and round. No scleral icterus. No injection or drainage. Not able to assess extraocular muscles ENT: No nasal bleeding or discharge. Mucous membranes pink and moist. Will not stick out her tongue therefore cannot assess any deviation NECK: Trachea midline. No JVD. Supple tracheostomy tube in place CARDIOVASCULAR: Regular rate and rhythm. S1-S2 no S3 or S4 RESPIRATORY: No accessory muscle use. Breath sounds equal bilaterally. Coarse breath sounds bilaterally GASTROINTESTINAL: Abdomen soft, non-tender, nondistended. Hepatic and splenic margins not palpable. PEG tube in place MUSCULOSKELETAL: Extremities without clubbing, cyanosis, or edema. No obvious deformities. Generalized weakness NEUROLOGICAL: Awake and alert. No obvious cranial nerve deficits. Motor grossly ABnormal. 3 out of 5 muscle strength in the arms and legs. ABNormal speech. PSYCHIATRIC: INAppropriate mood and affect; insight and judgment ABnormal. Nonverbal and follows no commands Procedures SECRET[employer] K[employer] shunt Tracheostomy PEG tube Medications and IVs Current Medications Sodium Chloride (NS Flush) 2 ml UNSCH PRN IV FLUSH FLUSH AFTER USING IV ACCESS Last administered on 07/02/17at 10:18; Start 06/15/17 at 05:15 Sodium Chloride 500 ml @ 500 mls/hr BOLUS ONCE IV ; Start 06/15/17 at 06:00; Stop 06/15/17 at 06:59; Status DC Nicardipine HCl 25 mg/Sodium Chloride 250 ml @ 50 mls/hr TITRATE PRN IV Blood pressure management Last administered on 06/19/17at 06:43; Start 06/15/17 at 06: 15; Stop 06/23/17 at 17:33; Status DC Pravastatin Sodium (Pravachol) 80 mg HS PO Last administered on 06/17/17at 23:23 ; Start 06/15/17 at 21:00; Stop 06/18/17 at 09:30; Status DC Levetriacetam 100 ml @ 400 mls/hr BOLUS ONCE IV Last administered on at 09:43; Start 06/15/17 at 06:30; Stop 06/15/17 at 06:44; Status DC Sodium Chloride 1,000 ml @ 100 mls/hr Q10H IV Last administered on 06/17/17at 07:29; Start 06/15/17 at 06:17; Stop 06/17/17 at 12:42; Status DC Acetaminophen (Tylenol) 650 mg Q6H PRN PO PAIN 1-10 AND/OR FEVER >101F Last administered on 06/23/17at 20:18; Start 06/15/17 at 06:30; Stop 07/06/17 at 13:27 ; Status DC Morphine Sulfate (Morphine Inj) 2 mg Q2H PRN IV PUSH PAIN SCALE 6 TO 10 Last administered on 06/19/17at 08:29; Start 06/15/17 at 06:30; Stop 06/20/17 at 08:25 ; Status DC Famotidine (Pepcid Inj) 10 mg Q12HR IV PUSH Last administered on 06/25/17at 08: 45; Start 06/15/17 at 09:00; Stop 06/25/17 at 16:28; Status DC Ondansetron HCl (Zofran Inj) 4 mg Q6H PRN IV PUSH NAUSEA OR VOMITING Last administered on 07/10/17at 19:44; Start 06/15/17 at 06:30 Albuterol/ Ipratropium (Duoneb Neb) 1 ampule Q4HR NEB PRN INH WHEEZING; Start 06/15/17 at 06:30; Stop 06/27/17 at 09:15; Status DC Miscellaneous Information 1 Q361D XX Last administered on 06/15/17at 06:30; Start 06/15/17 at 06:30 Chlorhexidine Gluconate (Chlorhexidine 2% Cloth) Taper DAILY@04 TOP Last administered on 06/20/17at 04:00; Start 06/16/17 at 04:00; Stop 06/12/18 at 03:59 Chlorhexidine Gluconate (Chlorhexidine 2% Cloth) 3 pack UNSCH PRN TOP HYGIENIC CARE; Start 06/15/17 at 06:30 Senna/Docusate Sodium ([place]-Colace) 1 tab BID PO Last administered on at 08:00; Start 06/15/17 at 09:00; Stop 06/29/17 at 15:16; Status DC Magnesium Hydroxide (Milk Of Magnesia Liq) 30 ml Q12H PRN PO Mild constipation Last administered on 06/22/17at 20:58; Start 06/15/17 at 06:30 Sennosides (Senokot) 17.2 mg Q12H PRN PO Moderate constipation; Start 06/15/17 at 06:30 Bisacodyl (Dulcolax Supp) 10 mg DAILY PRN RECTAL SEVERE CONSITIPATION; Start at 06:30 Lactulose (Lactulose Liq) 30 ml DAILY PRN PO SEVERE CONSITIPATION Last administered on 06/22/17at 20:58; Start 06/15/17 at 06:30 Rocuronium Doole (Zemuron Inj) 100 mg BOLUS ONCE IV Last administered on at 14:34; Start 06/15/17 at 14:00; Stop 06/15/17 at 14:01; Status DC Midazolam HCl (Versed Inj) 5 mg ONCE ONCE IV PUSH Last administered on at 14:35; Start 06/15/17 at 14:00; Stop 06/15/17 at 14:01; Status DC Chlorhexidine Gluconate (Peridex 0.12% Liq) 15 ml BID@08,20 MT Last administered on 07/16/17at 08:00; Start 06/15/17 at 20:00 Propofol 100 ml @ 0 mls/hr TITRATE PRN IV SEDATION; Start 06/15/17 at 14:00; Status UNV Midazolam HCl (Versed Inj) 5 mg STK-MED ONCE .ROUTE ; Start 06/15/17 at 14:07; Stop 06/15/17 at 14:08; Status DC Rocuronium Doole (Zemuron Inj) 50 mg STK-MED ONCE .ROUTE ; Start 06/15/17 at 14:07; Stop 06/15/17 at 14:08; Status DC Propofol 100 ml @ 1.941 mls/ hr TITRATE PRN IV SEDATION Last administered on at 14:41; Start 06/15/17 at 14:45; Stop 06/21/17 at 14:09; Status DC Miscellaneous Information (RASS Change Order) 1 ea ONCE ONCE XX Last administered on 06/15/17at 14:45; Start 06/15/17 at 14:45; Stop 06/15/17 at 14:46 ; Status DC Norepinephrine Bitartrate 4 mg/ Sodium Chloride 250 ml @ 7.5 mls/hr TITRATE PRN IV Maintain MAP > 70 mmHg; Start 06/15/17 at 19:45; Stop 06/15/17 at 21:37; Status DC Norepinephrine Bitartrate 4 mg/ Sodium Chloride 250 ml @ 7.5 mls/hr TITRATE PRN IV Maintain MAP > 70 mmHg Last administered on 06/15/17at 19:00; Start at 21:45; Stop 06/20/17 at 08:11; Status DC Levetriacetam (Keppra) 500 mg Q12HR PO Last administered on 07/09/17at 09:59; Start 06/17/17 at 11:30; Stop 07/09/17 at 21:24; Status DC Potassium Chloride 20 meq/ Lactated Ringer's 1,010 ml @ 42 mls/hr Q24H IV ; Start 06/17/17 at 12:45; Stop 06/17/17 at 13:02; Status DC Potassium Chloride 10 meq/ Lactated Ringer's 505 ml @ 42 mls/hr Q12H2M IV Last administered on 06/19/17at 22:32; Start 06/17/17 at 13:15; Stop 06/20/17 at 08:13; Status DC Pravastatin Sodium (Pravachol) 40 mg HS PO Last administered on 07/15/17at 20:26 ; Start 06/18/17 at 21:00 Potassium Phosphate 15 mmol/ Sodium Chloride 155 ml @ 38.75 mls/ hr ONCE ONCE IV Last administered on 06/19/17at 08:50; Start 06/19/17 at 08:00; Stop at 11:59; Status DC Metoprolol Tartrate (Lopressor) 25 mg Q12HR PO Last administered on 07/16/17at 09:59; Start 06/19/17 at 09:00 Pharmacy Profile Note 0 ml @ 0 mls/hr UNSCH OTHER ; Start 06/20/17 at 08:15; Stop 06/21/17 at 14:09; Status DC Albuterol/ Ipratropium (Duoneb Neb) 1 ampule Q6HR NEB NEB Last administered on 06/24/17at 07:16; Start 06/20/17 at 10:00; Stop 06/24/17 at 09:59; Status DC Vancomycin HCl 1250 mg/Sodium Chloride 262.5 ml @ 262.5 mls/ hr ONCE ONCE IV Last administered on 06/20/17at 13:29; Start 06/20/17 at 12:00; Stop 06/20/17 at 12:59; Status DC Hydralazine HCl (Apresoline Inj) 10 mg Q4H PRN IV PUSH SBP greater than 160 Last administered on 07/16/17at 09:59; Start 06/20/17 at 12:30 Potassium Phosphate 15 mmol/ Sodium Chloride 155 ml @ 38.75 mls/ hr ONCE ONCE IV Last administered on 06/20/17at 17:05; Start 06/20/17 at 13:45; Stop at 17:44; Status DC Furosemide (Lasix Inj) 40 mg ONCE ONCE IV PUSH Last administered on 06/21/17at 08:53; Start 06/21/17 at 08:30; Stop 06/21/17 at 08:31; Status DC Cefazolin Sodium/ Dextrose 50 ml @ 100 mls/hr Q8H IV Last administered on 06/24at 15:02; Start 06/21/17 at 15:00; Stop 06/24/17 at 21:47; Status DC Cefazolin Sodium 2000 mg/Sodium Chloride 120 ml @ 240 mls/hr Q8H IV Last administered on 06/30/17at 06:06; Start 06/24/17 at 23:00; Stop 06/30/17 at 10:37 ; Status DC Famotidine (Pepcid) 10 mg BID PO Last administered on 07/03/17at 08:48; Start at 21:00; Stop 07/03/17 at 20:13; Status DC Chlorhexidine Gluconate (Hibiclens 4% Top Soln) 1 applic HS TOP Last administered on 06/27/17at 05:56; Start 06/26/17 at 21:00; Stop 06/28/17 at 21:01 ; Status DC Acetaminophen 100 ml @ As Directed STK-MED ONCE IV ; Start 06/27/17 at 07:04; Stop 06/27/17 at 07:05; Status DC Artificial Tears (Lacrilube Opht Oint) 3.5 applic STK-MED ONCE .ROUTE ; Start at 07:05; Stop 06/27/17 at 07:06; Status DC Lidocaine/ Epinephrine (Xylocaine-Epi 1%-1:100,000 Inj) 30 ml STK-MED ONCE .ROUTE ; Start 06/27/17 at 07:32; Stop 06/27/17 at 07:33; Status DC Thrombin (Thrombin Top Soln) 10,000 units STK-MED ONCE .ROUTE ; Start 06/27/17 at 07:32; Stop 06/27/17 at 07:33; Status DC Gelatin (Gelfoam 100 Top) 1 foam STK-MED ONCE .ROUTE ; Start 06/27/17 at 07:32; Stop 06/27/17 at 07:33; Status DC Bacitracin (Baciguent Oint) 15 applic STK-MED ONCE .ROUTE ; Start 06/27/17 at 07 :32; Stop 06/27/17 at 07:33; Status DC Gentamicin Sulfate (Gentamicin Inj) 240 mg STK-MED ONCE .ROUTE ; Start 06/27/17 at 07:33; Stop 06/27/17 at 07:34; Status DC Albuterol Sulfate (Albuterol Neb) 2.5 mg Q2HR NEB PRN NEB dyspnea Last administered on 07/11/17at 19:52; Start 06/27/17 at 09:15 Labetalol HCl (Trandate Inj) 10 mg Q1HR PRN IV PUSH SBP>160, DBP>90, HR>65 Last administered on 07/10/17at 18:07; Start 06/27/17 at 09:15 Polyethylene Glycol (Miralax) 17 gm ONCE ONCE PO ; Start 06/27/17 at 09:15; Stop 06/27/17 at 09:19; Status DC Polyethylene Glycol (Miralax) 17 gm DAILY PO Last administered on 06/28/17at 08: 31; Start 06/28/17 at 09:00; Stop 06/28/17 at 15:18; Status DC Glycerin (Glycerin Adult Supp) 2 gm ONCE ONCE RECTAL ; Start 06/27/17 at 09:15 ; Stop 06/27/17 at 09:20; Status DC Sodium Chloride (Sodium Chloride) 1 gm ONCE ONCE PO ; Start 06/27/17 at 09:45; Stop 06/27/17 at 10:35; Status DC Propofol (Diprivan 500 Mg/ 50 ml Inj) 100 mg ONCE ONCE IV Last administered on 06/27/17at 11:10; Start 06/27/17 at 11:00; Stop 06/27/17 at 11:01; Status DC Chlorhexidine Gluconate (Peridex 0.12% Liq) 15 ml BID@08,20 MT ; Start 06/27/17 at 20:00; Status Cancel Propofol 100 ml @ 2.073 mls/ hr TITRATE PRN IV SEDATION Last administered on at 13:54; Start 06/27/17 at 11:00 Fentanyl Citrate 250 ml @ 5 mls/hr TITRATE PRN IV SEDATION Last administered on 07/06/17at 04:21; Start 06/27/17 at 11:00 Lidocaine HCl (Xylocaine 2% Inj) 100 mg ONCE ONCE IV PUSH Last administered on 06/27/17at 13:34; Start 06/27/17 at 11:00; Stop 06/27/17 at 11:01; Status DC Etomidate (Amidate Inj) 40 mg ONCE ONCE IV PUSH Last administered on at 13:34; Start 06/27/17 at 11:00; Stop 06/27/17 at 11:01; Status DC Rocuronium Doole (Zemuron Inj) 100 mg BOLUS ONCE IV Last administered on at 13:35; Start 06/27/17 at 11:30; Stop 06/27/17 at 11:31; Status DC Lidocaine/ Epinephrine (Xylocaine-Epi 1%-1:100,000 Inj) 30 ml STK-MED ONCE .ROUTE ; Start 06/27/17 at 10:50; Stop 06/27/17 at 10:51; Status DC Rocuronium Doole (Zemuron Inj) 100 mg STK-MED ONCE .ROUTE ; Start 06/27/17 at 10:51; Stop 06/27/17 at 10:52; Status DC Artificial Tears (Tears Naturale Opth Soln) 1 drop Q8HR EACH EYE Last administered on 07/16/17 06:21; Start 06/28/17 at 17:00 Polyethylene Glycol (Miralax) 17 gm BID PO Last administered on 07/15/17at 08:58 ; Start 06/28/17 at 21:00 Lactulose (Lactulose Liq) 30 ml QID PO Last administered on 07/01/17at 13:08; Start 06/28/17 at 18:00; Stop 07/01/17 at 14:12; Status DC Mineral Oil (Kondremul Liq) 30 ml ONCE ONCE PO Last administered on 06/28/17 16:54; Start 06/28/17 at 17:00; Stop 06/28/17 at 17:01; Status DC Glycerin (Glycerin Adult Supp) 2 gm ONCE ONCE RECTAL Last administered on 06/28at 16:54; Start 06/28/17 at 17:00; Stop 06/28/17 at 17:01; Status DC Methylnaltrexone Doole (Relistor Inj) 12 mg ONCE ONCE SQ Last administered on 06/28/17at 17:20; Start 06/28/17 at 17:00; Stop 06/28/17 at 17:01; Status DC Metoclopramide HCl (Reglan Inj) 5 mg Q8HR IV PUSH Last administered on at 06:21; Start 06/29/17 at 22:00 Methylnaltrexone Doole (Relistor Inj) 12 mg ONCE ONCE SQ Last administered on 06/29/17at 17:14; Start 06/29/17 at 15:15; Stop 06/29/17 at 15:30; Status DC Docusate Sodium (Colace Liq) 100 mg Q12HR PO Last administered on 07/15/17at 08: 56; Start 06/29/17 at 21:00 Sennosides (Senna Liq) 8.8 mg BID PO Last administered on 07/15/17at 08:57; Start 06/29/17 at 21:00 Mineral Oil (Kondremul Liq) 30 ml ONCE ONCE PO Last administered on 06/29/17at 15:15; Start 06/29/17 at 15:15; Stop 06/29/17 at 15:30; Status DC Glycerin (Glycerin Adult Supp) 2 gm ONCE ONCE RECTAL Last administered on 06/29at 15:15; Start 06/29/17 at 15:15; Stop 06/29/17 at 15:30; Status DC Magnesium Citrate (Citroma Liq) 300 ml ONCE ONCE PO ; Start 06/30/17 at 10:45; Stop 06/30/17 at 10:49; Status DC Mineral Oil (Fleet Mineral Oil Enema) 118 ml ONCE ONCE RECTAL ; Start 06/30/17 at 10:45; Stop 06/30/17 at 10:49; Status DC Mineral Oil (Kondremul Liq) 30 ml ONCE ONCE PO ; Start 06/30/17 at 10:45; Stop 06/30/17 at 10:49; Status DC Sodium Phosphate 30 mmol/Sodium Chloride 260 ml @ 43.333 mls/ hr ONCE ONCE IV ; Start 06/30/17 at 12:00; Stop 06/30/17 at 17:59; Status DC Magnesium Sulfate/ Dextrose 100 ml @ 100 mls/hr Q1H IV Last administered on at 11:45; Start 06/30/17 at 10:45; Stop 06/30/17 at 12:44; Status DC Piperacillin Sod/ Tazobactam Sod 100 ml @ 200 mls/hr Q6H IV Last administered on 07/07/17at 09:59; Start 06/30/17 at 11:00; Stop 07/07/17 at 11:00; Status DC Albuterol/ Ipratropium (Duoneb Neb) 1 ampule Q6HR WHILE AWAKE NEB NEB Last administered on 07/05/17at 13:13; Start 07/01/17 at 20:00; Stop 07/05/17 at 14:07; Status DC Potassium Chloride (KCl Powder) 20 meq ONCE ONCE PO ; Start 07/02/17 at 22:15; Stop 07/02/17 at 22:16; Status DC Famotidine (Pepcid) 20 mg BID PO Last administered on 07/09/17at 09:59; Start 07/03/17 at 21:00; Stop 07/10/17 at 14:29; Status DC Folic Acid (Folate) 1 mg DAILY PO Last administered on 07/16/17at 09:59; Start 07/04/17 at 09:15 Albuterol/ Ipratropium (Duoneb Neb) 1 ampule Q6HR WHILE AWAKE NEB NEB Last administered on 07/06/17at 13:06; Start 07/05/17 at 14:00; Stop 07/06/17 at 13:27; Status DC Albuterol/ Ipratropium (Duoneb Neb) 1 ampule Q6HR ALT NEB NEB ; Start 07/06/17 at 19:00; Stop 07/06/17 at 19:00; Status DC Acetaminophen (Tylenol 650 Mg/ 20 ml Liq) 650 mg Q6H PRN PO fever Last administered on 07/08/17at 15:09; Start 07/06/17 at 13:30 Albuterol/ Ipratropium (Duoneb Neb) 1 ampule Q6HR NEB NEB Last administered on 07/10/17at 20:29; Start 07/06/17 at 22:00; Stop 07/10/17 at 21:59; Status DC Midazolam HCl (Versed Inj) 5 mg ONCE ONCE IV PUSH Last administered on at 14:33; Start 07/09/17 at 14:00; Stop 07/09/17 at 14:01; Status DC Rocuronium Doole (Zemuron Inj) 50 mg BOLUS ONCE IV Last administered on at 14:30; Start 07/09/17 at 14:00; Stop 07/09/17 at 14:01; Status DC Fentanyl Citrate (fentaNYL INJ) 200 mcg ONCE ONCE IV PUSH Last administered on 07/09/17at 14:31; Start 07/09/17 at 14:00; Stop 07/09/17 at 14:01; Status DC Norepinephrine Bitartrate 250 ml @ As Directed STK-MED ONCE IV ; Start 07/09/17 at 15:47; Stop 07/09/17 at 15:48; Status DC Levetriacetam 500 mg/Sodium Chloride 105 ml @ 420 mls/hr Q12HR IV Last administered on 07/11/17at 08:35; Start 07/09/17 at 21:30; Stop 07/11/17 at 17:51 ; Status DC Cefazolin Sodium 1000 mg/Sodium Chloride 100 ml @ 200 mls/hr [facility] [employer] IV Last administered on 07/10/17at 14:17; Start 07/10/17 at 10:30; Stop 07/12/17 at 20:27 ; Status DC Famotidine (Pepcid) 10 mg BID PO ; Start 07/10/17 at 21:00; Stop 07/10/17 at 21: 00; Status DC Pantoprazole Sodium (Protonix) 20 mg DAILY PO ; Start 07/10/17 at 17:00; Stop at 11:19; Status DC Propofol (Diprivan 200 Mg/20 ml Inj) 200 mg STK-MED ONCE IV ; Start 07/10/17 at 12:00; Stop 07/11/17 at 10:48; Status DC Phenylephrine HCl (Neosynephrine/ NS 1000 Mcg/10ml Syr) 1,000 mcg STK-MED ONCE IV ; Start 07/10/17 at 12:00; Stop 07/11/17 at 10:48; Status DC Famotidine (Pepcid) 10 mg BID PEG Last administered on 07/16/17at 09:59; Start 07/11/17 at 21:00 Levetriacetam (Keppra) 500 mg Q12HR PEG Last administered on 07/16/17at 09:59; Start 07/11/17 at 21:00 Sodium Chloride (Sodium Chloride) 1 gm Q12HR PO Last administered on 07/16/17at 09:59; Start 07/12/17 at 13:15 Sodium Chloride 1,000 ml @ 100 mls/hr Q10H IV Last administered on 07/13/17at 05:45; Start 07/12/17 at 19:45; Stop 07/13/17 at 17:41; Status DC Cefazolin Sodium/ Dextrose 50 ml @ 150 mls/hr [employer] [employer] IV Last administered on 07/13/17at 14:53; Start 07/12/17 at 19:45 Vancomycin HCl 1000 mg/Sodium Chloride 250 ml @ 250 mls/hr [employer] IV ; Start 07/12/17 at 19:45 Chlorhexidine Gluconate (Hibiclens 4% Top Soln) 1 applic HS TOP Last administered on 07/13/17at 09:00; Start 07/12/17 at 21:00; Stop 07/13/17 at 21:01 ; Status DC Acetaminophen 100 ml @ As Directed STK-MED ONCE IV ; Start 07/13/17 at 12:10; Stop 07/13/17 at 12:11; Status DC Artificial Tears (Lacrilube Opht Oint) 3.5 applic STK-MED ONCE .ROUTE ; Start at 12:10; Stop 07/13/17 at 12:11; Status DC Lidocaine/ Epinephrine (Xylocaine-Epi 1%-1:100,000 Inj) 30 ml STK-MED ONCE .ROUTE Last administered on 07/13/17at 14:50; Start 07/13/17 at 12:58; Stop at 12:59; Status DC Thrombin (Thrombin Top Soln) 5,000 units STK-MED ONCE .ROUTE Last administered on 07/13/17at 14:50; Start 07/13/17 at 12:58; Stop 07/13/17 at 12:59; Status DC Gelatin (Gelfoam 100 Top) 1 foam STK-MED ONCE .ROUTE Last administered on at 14:50; Start 07/13/17 at 12:58; Stop 07/13/17 at 12:59; Status DC Bacitracin (Baciguent Oint) 15 applic STK-MED ONCE .ROUTE Last administered on 07/13/17at 14:50; Start 07/13/17 at 12:58; Stop 07/13/17 at 12:59; Status DC Gentamicin Sulfate (Gentamicin Inj) 240 mg STK-MED ONCE .ROUTE Last administered on 07/13/17at 14:50; Start 07/13/17 at 12:58; Stop 07/13/17 at 12:59 ; Status DC Fentanyl Citrate (fentaNYL INJ) 100 mcg STK-MED ONCE .ROUTE ; Start 07/13/17 at 16:36; Stop 07/13/17 at 16:37; Status DC Potassium Chloride/Sodium Chloride 1,000 ml @ 100 mls/hr Q10H IV Last administered on 07/14/17at 02:47; Start 07/13/17 at 16:38; Stop 07/14/17 at 13:01 ; Status DC Cefazolin Sodium/ Dextrose 50 ml @ 100 mls/hr Q8H IV Last administered on 07/14at 14:00; Start 07/13/17 at 22:00; Stop 07/14/17 at 14:29; Status DC Pantoprazole Sodium (Protonix Inj) 40 mg DAILY IVP Last administered on at 10:00; Start 07/14/17 at 09:00 Acetaminophen/ Hydrocodone Bitart ([place] 10-325 Mg) 1 tab Q4H PRN PO PAIN SCALE 1 TO 5; Start 07/13/17 at 16:45 Acetaminophen/ Hydrocodone Bitart ([place] 10-325 Mg) 2 tab Q4H PRN PO PAIN SCALE 6 TO 10; Start 07/13/17 at 16:45 Morphine Sulfate (Morphine Inj) 2 mg Q2H PRN IV PUSH PAIN SCALE 1 TO 6; Start 07/13/17 at 16:45 Morphine Sulfate (Morphine Inj) 4 mg Q2H PRN IV PUSH PAIN SCALE 7 TO 10; Start 07/13/17 at 16:45 Acetaminophen (Tylenol) 650 mg Q4H PRN PO TEMPERATURE > 101.5 F; Start at 16:45 Miscellaneous Information ALL NURSING DEPARTME... UNSCH PRN .XX SEE LABEL COMMENTS; Start 07/13/17 at 16:08; Stop 07/14/17 at 16:07; Status DC Lactated Ringer's 1,000 ml @ As Directed STK-MED ONCE IV ; Start 07/13/17 at 12 :00; Stop 07/16/17 at 12:30; Status DC Lidocaine HCl (Xylocaine-Mpf 1% Inj) 5 ml STK-MED ONCE OTHER ; Start 07/13/17 at 12:00; Stop 07/16/17 at 12:30; Status DC Rocuronium Doole (Zemuron Inj) 50 mg STK-MED ONCE IV PUSH ; Start 07/13/17 at 12:00; Stop 07/16/17 at 12:30; Status DC Neostigmine Methylsulfate (Prostigmine Inj) 5 mg STK-MED ONCE IV PUSH ; Start at 12:00; Stop 07/16/17 at 12:30; Status DC Glycopyrrolate (Robinul Inj) 1 mg STK-MED ONCE IV PUSH ; Start 07/13/17 at 12:00 ; Stop 07/16/17 at 12:30; Status DC Phenylephrine HCl (Neosynephrine/ NS 1000 Mcg/10ml Syr) 1,000 mcg STK-MED ONCE IV ; Start 07/13/17 at 12:00; Stop 07/16/17 at 12:30; Status DC Ephedrine Sulfate (ePHEDrine/NS 25 MG/5 ML SYR) 50 mg STK-MED ONCE IV ; Start at 12:00; Stop 07/16/17 at 12:30; Status DC Dexamethasone Sodium Phosphate (Decadron Inj) 8 mg STK-MED ONCE IV ; Start 07/13 at 12:00; Stop 07/16/17 at 12:30; Status DC Ondansetron HCl (Zofran Inj) 4 mg STK-MED ONCE IV ; Start 07/13/17 at 12:00; Stop 07/16/17 at 12:30; Status DC Propofol (Diprivan 200 Mg/20 ml Inj) 200 mg STK-MED ONCE IV ; Start 07/13/17 at 12:00; Stop 07/16/17 at 12:30; Status DC A/P Problem List: (1) Hemorrhagic stroke ICD Code: I61.9 - Nontraumatic intracerebral hemorrhage, unspecified Status: Acute (2) Respiratory failure ICD Code: J96.90 - Respiratory failure, unspecified, unspecified whether with hypoxia or hypercapnia (3) Hypertensive urgency ICD Code: I16.0 - Hypertensive urgency Status: Acute (4) Encephalopathy, metabolic ICD Code: G93.41 - Metabolic encephalopathy Status: Acute (5) [place] (acute kidney injury) ICD Code: N17.9 - Acute kidney failure, unspecified Status: Acute Assessment and Plan Neuro/Psych: Right posterior temporal/occipital/parietal intra-axial hematoma Left MCA posterior temporal occipital CVA Right complex partial seizure Wernicke aphasia Acute encephalopathy Following commands. s/p VPS 07/13. Ventriculostomy placed 06/27-neurosurgery managing CT brain 06/25 revealed a right occipital parietal intra-axial hematoma with mild surrounding edema. MRI brain revealed a left MCA CVA involving the left posterior temporal occipital region MRI brain admission revealed right posterior temporal hemorrhage with ventricular extension MRA brain negative for aneurysm CT head 07/10/17: Continued evolution of right occipital hemorrhage, IVH Carotid Dopplers with possible right carotid stenosis. Does not explain acute left MCA CVA. On levetiracetam 500 mg twice daily for seizure. Acetaminophen 650 mg p.o. every 6 hours as needed fever/pain Followed by Dr. Garewal neurology CV: Hypertensive emergency Dyslipidemia Currently on metoprolol 25 mg by mouth twice daily Currently on pravastatin 40 mg daily/on atorvastatin 40 mg daily at home Holding aspirin 81 mg daily in light of acute hemorrhage 06/29 echo - Normal left ventricular size. Mild concentric LVH. The left ventricular systolic function is hyperdynamic with an estimated ejection fraction in the range of 65-70%. Trace TR. The estimated PASP is 43 mmHg. Resp: Acute hypoxic and hypercarbic respiratory failure secondary to aspiration Reintubated secondary to new acute CVA with aspiration. S/p trach 07/09/17 TP as tolerated. Ventilator bundle. Albuterol/ipratropium aerosols every 6 hours alternate nebs with albuterol aerosols every 2 hours as needed dyspnea GI: Hypoalbuminemia Constipation Jevity 1.5 at 50 cc an hour at goal, s/p PEG tube placement Famotidine 20 mg twice daily for GI prophylaxis Docusate sodium/senna 1 tablet twice daily for bowel regimen. Continue polyethylene glycol 17 g twice daily, : no indication for kent catheter. Endo: Sliding scale insulin if indicated to maintain euglycemia Renal: Creatinine currently within normal limits Monitor urine output Accurate I's and O's Heme: Normocytic anemia Monitor CBC daily. Follow trend Hypercoagulable workup ID: Serratia plymithica, MSSA and Klebsiella pneumonia Completed cefazolin 2 g IV every 8 hours day #7 -> done Switch to penicillin/tazobactam day #7 -> done Pertinent cultures 06/30 -sputum -Serratia Plymithica/Klebsiella pneumonia 06/29 -blood cultures 2 -no growth 06/18 -staph aureus/Klebsiella pneumonia sputum 07/12/17 UA and csf culture send FEN: Replace electrolytes as clinically indicated MSK: Osteoarthritis/osteoporosis Holding alendronate 70 mg weekly. Resume clinically indicated Access -Utilize peripheral IV. Prophylaxis -GI -famotidine -DVT -SCD/holding pharmacological prophylaxis in light of cerebral hematoma. Initiate when okay with neurosurgery Overall impression: Stable hemodynamics. Tolerating TP. s/p tracheostomy . Need LTAC Problem Qualifiers (1) Respiratory failure: Qualified Codes: J96.00 - Acute respiratory failure, unspecified whether with hypoxia or hypercapnia Seun Pop DO Jul 16, 2017 14:51
[2017-07-16 15:01] LABS: HEMOGLOBIN A1C 5.8 % (4.3-6.0)
[2017-07-16] MEDS: HYOSCYAMINE SOLN 0.125 MG/ML 15 ML BTL PO PRN (16:22)
--- NOTE | 2017-07-16 17:51 | HHI.PR ---
Subjective Remarks The patient is doing well. She is having increased tracheal secretions through the trach. She needed to started on Levsin and she responded okay to that. Objective Vital Signs Date Time Temp Pulse Resp B/P (MAP) Pulse Ox O2 Delivery O2 Flow Rate FiO2 07/16/17 16:00 78 07/16/17 16:00 99.1 78 20 134/74 (94) 100 07/16/17 14:00 88 07/16/17 12:00 99.1 89 26 154/92 (112) 97 07/16/17 12:00 89 07/16/17 11:45 92 Trach Collar 8.00 100 07/16/17 08:03 94 T-piece 28 07/16/17 08:00 106 07/16/17 08:00 99.2 102 18 172/87 (115) 94 07/16/17 07:00 94 Trach Collar 5.00 28 07/16/17 06:00 90 07/16/17 04:00 98.2 80 24 148/76 (100) 100 07/16/17 04:00 81 07/16/17 04:00 28 07/16/17 02:00 82 07/16/17 00:00 28 07/16/17 00:00 88 07/16/17 00:00 98.2 88 25 138/65 (89) 98 07/15/17 22:00 85 07/15/17 21:46 98 Simple Mask 6.00 07/15/17 21:36 96 T-piece 6.00 28 07/15/17 20:00 98.3 78 25 161/77 (105) 99 07/15/17 20:00 77 07/15/17 20:00 28 07/15/17 19:00 98 Trach Collar 5.00 28 07/15/17 18:00 79 I/O 07/15/17 07/15/17 07/15/17 07/16/17 07/16/17 07/16/17 07:00 15:00 23:00 07:00 15:00 23:00 Intake Total 672 ml 478 ml 577 ml Output Total 700 ml 0 ml 400 ml Balance -28 ml 0 ml 478 ml 177 ml Intake Oral 0 ml IV Total 20 ml Tube Feeding 652 ml 478 ml 537 ml Tube Irrigant 20 ml 20 ml Output Urine Total 700 ml 400 ml Tube Feeding Residual Discard 0 ml # Voids 3 1 # Bowel Movements 1 1 0 Result Diagram: 07/16/17 0754 07/16/17 0754 Objective Remarks General appearance no acute distress Neck:Trach in place no significant secretions seen Lungs bilateral rhonchi. Heart: S1-S2 Abdomen: Soft nontender Extremities: Mild edema Neurologic unresponsive Assessment and Plan Assessment and Plan Assessment and Plan S/p Right ICH Hypertensive urgency S/p tracheostomy Increased tracheal secretions rule out tracheitis S/p chronic respiratory failure Cont current tx Trach care Cont on t piece as tolerated Wean supplemental o2 to keep sats > 89% I would like to order tracheal aspirate for culture and Gram stain I would like to get a chest x-ray Continue current treatment I am okay with the Levsin however care needs to be taken in case his secretions get really thicker and harder to suction and clear in that case we need to stop the Levsin. Maximino Katz MD Jul 16, 2017 17:51
[2017-07-16] MEDS: PRAVASTATIN SOD 40 MG TAB PO SCH (21:46)
[2017-07-17] VITALS (13 sets, daily range): BP systolic 115–157; BP diastolic 54–68; PULSE 66–79; RESP 21–25; TEMP 97.6–99.1; O2SAT 96–100
[2017-07-17] MEDS: ACETAMINOPHEN/HYDROcodone 325 MG/10 MG TAB PO PRN ×3 (01:44→19:46)
[2017-07-17] MEDS: CHLORHEXIDINE GLUCONATE 2 % 1 PACK (2 CLOTHS) TOP SCH (03:53)
[2017-07-17 05:37] LABS: AUTOMATED NEUTROPHIL # 9.5 TH/MM3 (1.8-7.7); BASOPHIL # 0.1 TH/MM3 (0-0.2); BASOPHIL % 0.8 % (0.0-2.0); EOSINOPHIL # 0.1 TH/MM3 (0-0.4); EOSINOPHIL % 0.4 % (0.0-4.0); HEMATOCRIT 21.1 % (35.0-46.0); HEMOGLOBIN 7.2 GM/DL (11.6-15.3); LYMPH % 14.5 % (9.0-44.0); LYMPHOCYTE # 1.8 TH/MM3 (1.0-4.8); MEAN CELL VOLUME 89.5 FL (80.0-100.0); MEAN CORPUSCULAR HEMOGLOBIN 30.4 PG (27.0-34.0); MEAN CORPUSCULAR HGB CONC 33.9 % (32.0-36.0); MEAN PLATELET VOLUME 7.7 FL (7.0-11.0); MONO % 8.6 % (0.0-8.0); MONOCYTE # 1.1 TH/MM3 (0-0.9); NEUT % 75.7 % (16.0-70.0); PLATELET COUNT 300 TH/MM3 (150-450); RED BLOOD COUNT 2.36 MIL/MM3 (4.00-5.30); RED CELL DISTRIBUTION WIDTH 14.4 % (11.6-17.2); WHITE BLOOD COUNT 12.5 TH/MM3 (4.0-11.0)
[2017-07-17] MEDS: ARTIFICIAL TEARS OPTH SOLN 15 ML BTL EACH EYE SCH ×3 (05:48→19:48)
[2017-07-17] MEDS: HYOSCYAMINE SOLN 0.125 MG/ML 15 ML BTL PO PRN (05:48)
[2017-07-17 05:57] LABS: ALBUMIN 1.7 GM/DL (3.4-5.0); ALT (GPT) 26 U/L (10-53); AST (GOT) 39 U/L (15-37); BICARBONATE 28.3 MEQ/L (21.0-32.0); BLOOD UREA NITROGEN 20 MG/DL (7-18); CALCIUM 8.2 MG/DL (8.5-10.1); CHLORIDE 101 MEQ/L (98-107); CREATININE 0.66 MG/DL (0.50-1.00); GLOMERULAR FILTRATION RATE 86 ML/MIN (>89); GLUCOSE,RANDOM 145 MG/DL (74-106); MAGNESIUM 1.6 MG/DL (1.5-2.5); PHOSPHORUS 3.4 MG/DL (2.5-4.9); SODIUM (NA) 137 MEQ/L (136-145)
[2017-07-17] MEDS: METOCLOPRAMIDE HCL 10 MG/2 ML VIAL IV PUSH SCH ×2 (06:00→13:12)
[2017-07-17 06:06] LABS: ALKALINE PHOSPHATASE 169 U/L (45-117); FREE T4 1.75 NG/DL (0.76-1.46); TOTAL BILIRUBIN ADULT 0.4 MG/DL (0.2-1.0); TOTAL PROTEIN 6.3 GM/DL (6.4-8.2)
[2017-07-17] MEDS: CHLORHEXIDINE 0.12% (ORAL KIT) 15 ML CUP MT SCH ×2 (08:00→19:47)
[2017-07-17] MEDS: SENNOSIDES SYRUP 8.8 MG/5 ML CUP PO SCH ×2 (09:00→19:48)
[2017-07-17] MEDS: DOCUSATE SODIUM 100 MG/10 ML UDC PO SCH ×2 (09:00→19:47)
[2017-07-17] MEDS: POLYETHYLENE GLYCOL 17 GM PKG PO SCH ×2 (09:00→19:47)
[2017-07-17] MEDS: levETIRAcetam 500 MG TAB PEG SCH ×2 (09:07→19:47)
[2017-07-17] MEDS: METOPROLOL TARTRATE 25 MG TAB PO SCH ×2 (09:07→19:47)
[2017-07-17] MEDS: FOLIC ACID 1 MG TAB PO SCH (09:07)
[2017-07-17] MEDS: SODIUM CHLORIDE 1 GRAM TAB PO SCH ×2 (09:07→19:48)
[2017-07-17] MEDS: PANTOPRAZOLE SODIUM 40 MG VIAL IVP SCH (09:07)
[2017-07-17] MEDS: FAMOTIDINE 20 MG TAB PEG SCH ×2 (09:07→19:47)
[2017-07-17 10:41] LABS: HEMOGLOBIN A1C 5.8 % (4.3-6.0)
--- NOTE | 2017-07-17 14:01 | HHI.PR ---
Subjective Remarks Severely dehydrated, elderly woman presents confused to [facility] ED with hypertensive urgency and semi-acute right hemispheric parenchymal brain hemorrhage. Arrived from [facility] on cardene gtt and aphasic. Handness not determined yet. Unable to get ROS. No anticoagulants. INR normal. 06/16: Flaccid left side. Minimal eye opening. Moves right arm and leg to stimulation. Breathes over vent. ICP control, EVD draining well. 06/17: Moving both arms, right much stronger. More alert but episodic apnea spells. 06/18: No events over the night. Patient remains intubated, off sedation. She is currently on pressure support, 01/04, doing well. Awake, following commands. Son present at bedside. T-max of 99.6. I/O 250/1545. 06/19: No events over the night. Patient did well yesterday on pressure support , but was not able to be extubated secondary to no cuff leak. She remains on Cardene currently at 9.5 mg/h. Afebrile with a T-max of 99.4. Negative fluid balance. 06/20: Patient did well over the night. T-max of 100.2. ICP of 4. Thick sputum secretions sent yesterday for culture now growing Staphylococcus. Patient is awake, off sedation following some commands. Off Cardene drip since yesterday. 06/21: Patient did well postextubation and over the night. T-max of 100 yesterday morning. Very good urine output. Patient awake following commands, denying any pain. 06/22: No events over the night. Patient doing well. She is awake and alert, denies headache, nausea, vomiting. No chest pain, no dyspnea, no palpitations. On 2 L nasal cannula. Afebrile over the last 24 hours. Diuresed well post Lasix and she is on negative fluid balance since admission. 06/23: Patient awake, feels better, denies chest pain, shortness of breath, palpitations, headache. Still has productive cough. Afebrile, urine output is adequate. 06/24: No events over the night. Patient afebrile over the last 24 hours. She remains awake, resting in bed, denies any complaints. Sons at bedside. 06/25: Resting comfortably. Drowsy, arousable. EVD at 15cm, drained 60 cc overnight. 06/26: Resting comfortably. Awake and alert. EVD in place drain 10 cc overnight however has some clear fluid draining around ventriculostomy site. Dr. Nixon planning MACHINE TAILER shunt for tomorrow. 06/27: Afebrile. Less arousable today. Eyes are closed. Subjective left-sided weakness. EVD in place at 20 cm. 4 cc overnight. On cefazolin with clear fluid draining from ventriculostomy site. MRI brain currently pending. 06/28: Afebrile. Intubated yesterday secondary to altered mental status/ aspiration. Arousable and follows commands in the ventilator. 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 Echocardiogram pending. Possibly some right carotid stenosis on carotid ultrasound which does not correlate to this current acute left MCA CVA 06/29: Afebrile. More arousable today. Spontaneously moving left upper extremity. Opens eyes to voice. Not following commands. Tolerating tube feeds at goal. 06/30: Resting in bed in no acute distress. More arousable today. Spontaneously moving left upper extremity. Opens eyes to voice. No bowel movement 07/01: T-max 99.8. Currently 99.3. Opens eyes to voice. Squeezes bilateral hands right greater than left. Not following commands however. Tolerating spontaneous breathing trial 07/02: T-max 100.1. Currently afebrile. Did not tolerate CPAP trial today. Slightly more responsive today briefly follow commands right greater than left. Tolerating tube feeding. 07/03: Tolerating CPAP trial today. T-max 100.1. Currently 98.5. 2 bowel movements. More arousable and alert today 07/04: on PSV 01/04/40%. more awake today. follows commands. 07/05: continues to be more awake and alert, but also continues to fail CPAP trials. becomes tachypneic and distress. 07/06: Afebrile. Arousable and follows commands. Neurologically stable. Tolerating tube feeding. On PSV trial since 1050 but currently going to back up mode secondary to apnea. 07/07: Will trial SBTs daily, watch for apnea periods. 07/08: Fentanyl off and she is a little more active today. She may be blind. Unable to extubate today. 07/09: Remains intubated off sedation, ischial spontaneously open moves extremities spontaneously but intermittently. Do not follow commands. Too weak to protect airway successfully. Vent day will need trach and PEG, Dr. Nixon agrees. Will discuss with son. 07/10: Patient underwent percutaneous tracheostomy yesterday tolerated well. EVD raised to 20 yesterday tolerating well. GI consulted for PEG placement. Start weaning trials 07/11: Tolerating T piece, sleepy but wakes up easily following commands today bilateral upper and lower extremities. EVD remains clamped, CT from yesterday persistent hydrocephalus unchanged on my review 07/12: Patient remains on T piece since a.m., slightly more lethargic today but wakes up easily and follows commands. Per neurosurgery plan reopened EV drain today to 5 cm H20, if mentation improves and for MACHINE TAILER shunt tomorrow. Also check UA, CBC CMP and chest x-ray. CSF Gram stain and culture sent. NACL tab started 07/13: s/p MACHINE TAILER shunt today. doing well on t-piece. somnolent from anesthesia. 07/14: continues to do well on t-piece. no complaints. no changes to neuro exam. 07/15: remains on t-piece. neuro exam stable. 07-16 TRANSFERRED TO OUR SERVICE TODAY STILL HAVING LOTS OF SECRETIONS TRY LEVSIN ON 100% OXYGEN NOW WILL KEEP IN ICU AT THIS TIME DW RN PATIENT NON VERBAL FOLLOWING NO COMMANDS 07-17 NOT FOLLOWING COMMANDS WELL LOTS OF SECRETIONS DW PATIENT AND RN DW THERAPY-SHE STATES PATIENT NOT FOLLOWING COMMANDS FOR HER EITHER Objective Vitals Vital Signs Date Time Temp Pulse Resp B/P (MAP) Pulse Ox O2 Delivery O2 Flow Rate FiO2 07/17/17 12:00 97.6 66 21 127/57 (80) 96 07/17/17 12:00 66 07/17/17 10:00 72 07/17/17 09:06 97 T-piece 28 07/17/17 08:00 77 07/17/17 08:00 97.9 76 22 116/57 (76) 97 07/17/17 07:08 21 07/17/17 07:00 97 T-Piece 8.00 28 07/17/17 06:10 77 07/17/17 05:50 100 T-piece 6.00 28 07/17/17 04:08 75 07/17/17 04:08 99.1 75 21 115/54 (74) 100 07/17/17 02:10 79 07/17/17 00:38 78 25 157/68 (97) 100 07/17/17 00:37 78 07/16/17 22:13 87 07/16/17 20:48 98.9 85 29 135/65 (88) 100 07/16/17 20:47 100 T-piece 6.00 50 07/16/17 20:46 85 07/16/17 19:41 98 Trach Collar 8.00 100 07/16/17 18:00 84 07/16/17 16:00 78 07/16/17 16:00 99.1 78 20 134/74 (94) 100 07/16/17 14:00 88 I/O 07/16/17 07/16/17 07/16/17 07/17/17 07/17/17 07/17/17 07:00 15:00 23:00 07:00 15:00 23:00 Intake Total 577 ml 627 ml 720 ml Output Total 400 ml 150 ml 800 ml Balance 177 ml 477 ml -80 ml Intake Oral 0 ml IV Total 20 ml Tube Feeding 537 ml 567 ml 520 ml Tube Irrigant 20 ml 60 ml 200 ml Output Urine Total 400 ml 150 ml 800 ml # Voids 1 2 1 # Bowel Movements 0 1 1 Result Diagram: 07/17/172 07/17/17 044 Other Results Laboratory Tests Test 07/16/17 07:54 07/17/17 04:42 White Blood Count 13.5 TH/MM3 12.5 TH/MM3 Red Blood Count 2.77 MIL/MM3 2.36 MIL/MM3 Hemoglobin 8.4 GM/DL 7.2 GM/DL Hematocrit 24.8 % 21.1 % Mean Corpuscular Volume 89.3 FL 89.5 FL Mean Corpuscular Hemoglobin 30.2 PG 30.4 PG Mean Corpuscular Hemoglobin Concent 33.9 % 33.9 % Red Cell Distribution Width 14.7 % 14.4 % Platelet Count 376 TH/MM3 300 TH/MM3 Mean Platelet Volume 7.8 FL 7.7 FL Neutrophils (%) (Auto) 74.5 % 75.7 % Lymphocytes (%) (Auto) 12.6 % 14.5 % Monocytes (%) (Auto) 11.4 % 8.6 % Eosinophils (%) (Auto) 0.6 % 0.4 % Basophils (%) (Auto) 0.9 % 0.8 % Neutrophils # (Auto) 10.1 TH/MM3 9.5 TH/MM3 Lymphocytes # (Auto) 1.7 TH/MM3 1.8 TH/MM3 Monocytes # (Auto) 1.5 TH/MM3 1.1 TH/MM3 Eosinophils # (Auto) 0.1 TH/MM3 0.1 TH/MM3 Basophils # (Auto) 0.1 TH/MM3 0.1 TH/MM3 CBC Comment AUTO DIFF DIFF FINAL Differential Comment AUTO DIFF CONFIRMED Platelet Estimate NORMAL Platelet Morphology Comment NORMAL Red Cell Morphology Comment NORMAL Blood Urea Nitrogen 18 MG/DL 20 MG/DL Creatinine 0.59 MG/DL 0.66 MG/DL Random Glucose 133 MG/DL 145 MG/DL Total Protein 7.1 GM/DL 6.3 GM/DL Albumin 1.9 GM/DL 1.7 GM/DL Calcium Level 8.8 MG/DL 8.2 MG/DL Phosphorus Level 3.5 MG/DL 3.4 MG/DL Magnesium Level 1.7 MG/DL 1.6 MG/DL Alkaline Phosphatase 202 U/L 169 U/L Aspartate Amino Transf (AST/SGOT) 67 U/L 39 U/L Alanine Aminotransferase (ALT/SGPT) 30 U/L 26 U/L Total Bilirubin 0.5 MG/DL 0.4 MG/DL Sodium Level 137 MEQ/L 137 MEQ/L Potassium Level 4.2 MEQ/L 4.2 MEQ/L Chloride Level 103 MEQ/L 101 MEQ/L Carbon Dioxide Level 26.0 MEQ/L 28.3 MEQ/L Anion Gap 8 MEQ/L 8 MEQ/L Estimat Glomerular Filtration Rate 98 ML/MIN 86 ML/MIN Hemoglobin A1c 5.8 % Free Thyroxine 1.78 NG/DL 1.75 NG/DL Thyroid Stimulating Hormone 3rd Gen 0.197 uIU/ML 0.135 uIU/ML Imaging Last Impressions Head CT 07/14/17 0000 Signed Impressions: Service Date/Time: Friday, July 14, 2017 04:39 - CONCLUSION: 1. Postsurgical changes as above. no acute hemorrhage is identified. Elijah Cortez MD Chest X-Ray 07/13/17 0600 Signed Impressions: Service Date/Time: Thursday, July 13, 2017 03:37 - CONCLUSION: Improving aeration Harsha Wen MD Abdomen X-Ray 07/01/17 0600 Signed Impressions: Service Date/Time: Saturday, July 01, 2017 04:18 - CONCLUSION: 1. Nonspecific bowel gas pattern without evidence for obstruction or free air. Ivan Bahena MD Carotid Artery Ultrasound 06/27/17 0000 Signed Impressions: Service Date/Time: Tuesday, June 27, 2017 12:59 - CONCLUSION: 1. Moderate diffuse atherosclerotic plaquing at both carotid bifurcations. 2. Mild elevated velocity in the proximal right internal carotid artery. If clinically indicated , recommend CTA of the carotid arteries for further evaluation. 3. No definite high grade or hemodynamically significant stenosis is demonstrated. David Moore MD Brain MRI 06/27/17 0000 Signed Impressions: Service Date/Time: Tuesday, June 27, 2017 09:23 - CONCLUSION: 1. New development of a nonhemorrhagic acute infarct involving the left occipital lobe. 2. Otherwise, the rest of the exam is stable compared to the prior MRI. David Moore MD Head Magnetic Resonance Angiography 06/15/17 0000 Signed Impressions: Service Date/Time: Thursday, June 15, 2017 11:52 - CONCLUSION: MRA within normal limits. There is a parenchymal hemorrhage in the posterior right temporal lobe with intraventricular extension. Ivan Bahena MD Objective Remarks GENERAL: Awake alert follows RANDOM commands at this time right-sided MACHINE TAILER shunt - INCONSISTENTLY FOLLOWS COMMANDS SKIN: Warm and dry. HEAD: Atraumatic. Normocephalic. Right-sided MACHINE TAILER shunt EYES: Pupils equal and round. No scleral icterus. No injection or drainage. Not able to assess extraocular muscles ENT: No nasal bleeding or discharge. Mucous membranes pink and moist. Will not stick out her tongue therefore cannot assess any deviation NECK: Trachea midline. No JVD. Supple tracheostomy tube in place CARDIOVASCULAR: Regular rate and rhythm. S1-S2 no S3 or S4 RESPIRATORY: No accessory muscle use. Breath sounds equal bilaterally. Coarse breath sounds bilaterally GASTROINTESTINAL: Abdomen soft, non-tender, nondistended. Hepatic and splenic margins not palpable. PEG tube in place MUSCULOSKELETAL: Extremities without clubbing, cyanosis, or edema. No obvious deformities. Generalized weakness NEUROLOGICAL: Awake and alert. No obvious cranial nerve deficits. Motor grossly ABnormal. 3 out of 5 muscle strength in the arms and legs. ABNormal speech. PSYCHIATRIC: INAppropriate mood and affect; insight and judgment ABnormal. Nonverbal and follows no commands Procedures MACHINE TAILER shunt Tracheostomy PEG tube Medications and IVs Current Medications Sodium Chloride (NS Flush) 2 ml UNSCH PRN IV FLUSH FLUSH AFTER USING IV ACCESS Last administered on 07/02/17at 10:18; Start 06/15/17 at 05:15 Sodium Chloride 500 ml @ 500 mls/hr BOLUS ONCE IV ; Start 06/15/17 at 06:00; Stop 06/15/17 at 06:59; Status DC Nicardipine HCl 25 mg/Sodium Chloride 250 ml @ 50 mls/hr TITRATE PRN IV Blood pressure management Last administered on 06/19/17at 06:43; Start 06/15/17 at 06: 15; Stop 06/23/17 at 17:33; Status DC Pravastatin Sodium (Pravachol) 80 mg HS PO Last administered on 06/17/17at 23:23 ; Start 06/15/17 at 21:00; Stop 06/18/17 at 09:30; Status DC Levetriacetam 100 ml @ 400 mls/hr BOLUS ONCE IV Last administered on at 09:43; Start 06/15/17 at 06:30; Stop 06/15/17 at 06:44; Status DC Sodium Chloride 1,000 ml @ 100 mls/hr Q10H IV Last administered on 06/17/17at 07:29; Start 06/15/17 at 06:17; Stop 06/17/17 at 12:42; Status DC Acetaminophen (Tylenol) 650 mg Q6H PRN PO PAIN 1-10 AND/OR FEVER >101F Last administered on 06/23/17at 20:18; Start 06/15/17 at 06:30; Stop 07/06/17 at 13:27 ; Status DC Morphine Sulfate (Morphine Inj) 2 mg Q2H PRN IV PUSH PAIN SCALE 6 TO 10 Last administered on 06/19/17at 08:29; Start 06/15/17 at 06:30; Stop 06/20/17 at 08:25 ; Status DC Famotidine (Pepcid Inj) 10 mg Q12HR IV PUSH Last administered on 06/25/17at 08: 45; Start 06/15/17 at 09:00; Stop 06/25/17 at 16:28; Status DC Ondansetron HCl (Zofran Inj) 4 mg Q6H PRN IV PUSH NAUSEA OR VOMITING Last administered on 07/10/17at 19:44; Start 06/15/17 at 06:30 Albuterol/ Ipratropium (Duoneb Neb) 1 ampule Q4HR NEB PRN INH WHEEZING; Start 06/15/17 at 06:30; Stop 06/27/17 at 09:15; Status DC Miscellaneous Information 1 Q361D XX Last administered on 06/15/17at 06:30; Start 06/15/17 at 06:30 Chlorhexidine Gluconate (Chlorhexidine 2% Cloth) Taper DAILY@04 TOP Last administered on 06/20/17at 04:00; Start 06/16/17 at 04:00; Stop 06/12/18 at 03:59 Chlorhexidine Gluconate (Chlorhexidine 2% Cloth) 3 pack UNSCH PRN TOP HYGIENIC CARE; Start 06/15/17 at 06:30 Senna/Docusate Sodium ([place]-Colace) 1 tab BID PO Last administered on at 08:00; Start 06/15/17 at 09:00; Stop 06/29/17 at 15:16; Status DC Magnesium Hydroxide (Milk Of Magnesia Liq) 30 ml Q12H PRN PO Mild constipation Last administered on 06/22/17at 20:58; Start 06/15/17 at 06:30 Sennosides (Senokot) 17.2 mg Q12H PRN PO Moderate constipation; Start 06/15/17 at 06:30 Bisacodyl (Dulcolax Supp) 10 mg DAILY PRN RECTAL SEVERE CONSITIPATION; Start at 06:30 Lactulose (Lactulose Liq) 30 ml DAILY PRN PO SEVERE CONSITIPATION Last administered on 06/22/17 20:58; Start 06/15/17 at 06:30 Rocuronium [place] (Zemuron Inj) 100 mg BOLUS ONCE IV Last administered on at 14:34; Start 06/15/17 at 14:00; Stop 06/15/17 at 14:01; Status DC Midazolam HCl (Versed Inj) 5 mg ONCE ONCE IV PUSH Last administered on at 14:35; Start 06/15/17 at 14:00; Stop 06/15/17 at 14:01; Status DC Chlorhexidine Gluconate (Peridex 0.12% Liq) 15 ml BID@08,20 MT Last administered on 07/17/17at 08:00; Start 06/15/17 at 20:00 Propofol 100 ml @ 0 mls/hr TITRATE PRN IV SEDATION; Start 06/15/17 at 14:00; Status UNV Midazolam HCl (Versed Inj) 5 mg STK-MED ONCE .ROUTE ; Start 06/15/17 at 14:07; Stop 06/15/17 at 14:08; Status DC Rocuronium [place] (Zemuron Inj) 50 mg STK-MED ONCE .ROUTE ; Start 06/15/17 at 14:07; Stop 06/15/17 at 14:08; Status DC Propofol 100 ml @ 1.941 mls/ hr TITRATE PRN IV SEDATION Last administered on at 14:41; Start 06/15/17 at 14:45; Stop 06/21/17 at 14:09; Status DC Miscellaneous Information (RASS Change Order) 1 ea ONCE ONCE XX Last administered on 06/15/17at 14:45; Start 06/15/17 at 14:45; Stop 06/15/17 at 14:46 ; Status DC Norepinephrine Bitartrate 4 mg/ Sodium Chloride 250 ml @ 7.5 mls/hr TITRATE PRN IV Maintain MAP > 70 mmHg; Start 06/15/17 at 19:45; Stop 06/15/17 at 21:37; Status DC Norepinephrine Bitartrate 4 mg/ Sodium Chloride 250 ml @ 7.5 mls/hr TITRATE PRN IV Maintain MAP > 70 mmHg Last administered on 06/15/17at 19:00; Start at 21:45; Stop 06/20/17 at 08:11; Status DC Levetriacetam (Keppra) 500 mg Q12HR PO Last administered on 07/09/17at 09:59; Start 06/17/17 at 11:30; Stop 07/09/17 at 21:24; Status DC Potassium Chloride 20 meq/ Lactated Ringer's 1,010 ml @ 42 mls/hr Q24H IV ; Start 06/17/17 at 12:45; Stop 06/17/17 at 13:02; Status DC Potassium Chloride 10 meq/ Lactated Ringer's 505 ml @ 42 mls/hr Q12H2M IV Last administered on 06/19/17at 22:32; Start 06/17/17 at 13:15; Stop 06/20/17 at 08:13; Status DC Pravastatin Sodium (Pravachol) 40 mg HS PO Last administered on 07/16/17at 21:46 ; Start 06/18/17 at 21:00 Potassium Phosphate 15 mmol/ Sodium Chloride 155 ml @ 38.75 mls/ hr ONCE ONCE IV Last administered on 06/19/17at 08:50; Start 06/19/17 at 08:00; Stop at 11:59; Status DC Metoprolol Tartrate (Lopressor) 25 mg Q12HR PO Last administered on 07/17/17at 09:07; Start 06/19/17 at 09:00 Pharmacy Profile Note 0 ml @ 0 mls/hr UNSCH OTHER ; Start 06/20/17 at 08:15; Stop 06/21/17 at 14:09; Status DC Albuterol/ Ipratropium (Duoneb Neb) 1 ampule Q6HR NEB NEB Last administered on 06/24/17at 07:16; Start 06/20/17 at 10:00; Stop 06/24/17 at 09:59; Status DC Vancomycin HCl 1250 mg/Sodium Chloride 262.5 ml @ 262.5 mls/ hr ONCE ONCE IV Last administered on 06/20/17at 13:29; Start 06/20/17 at 12:00; Stop 06/20/17 at 12:59; Status DC Hydralazine HCl (Apresoline Inj) 10 mg Q4H PRN IV PUSH SBP greater than 160 Last administered on 07/16/17at 09:59; Start 06/20/17 at 12:30 Potassium Phosphate 15 mmol/ Sodium Chloride 155 ml @ 38.75 mls/ hr ONCE ONCE IV Last administered on 06/20/17at 17:05; Start 06/20/17 at 13:45; Stop at 17:44; Status DC Furosemide (Lasix Inj) 40 mg ONCE ONCE IV PUSH Last administered on 06/21/17at 08:53; Start 06/21/17 at 08:30; Stop 06/21/17 at 08:31; Status DC Cefazolin Sodium/ Dextrose 50 ml @ 100 mls/hr Q8H IV Last administered on 06/24at 15:02; Start 06/21/17 at 15:00; Stop 06/24/17 at 21:47; Status DC Cefazolin Sodium 2000 mg/Sodium Chloride 120 ml @ 240 mls/hr Q8H IV Last administered on 06/30/17at 06:06; Start 06/24/17 at 23:00; Stop 06/30/17 at 10:37 ; Status DC Famotidine (Pepcid) 10 mg BID PO Last administered on 07/03/17at 08:48; Start at 21:00; Stop 07/03/17 at 20:13; Status DC Chlorhexidine Gluconate (Hibiclens 4% Top Soln) 1 applic HS TOP Last administered on 06/27/17at 05:56; Start 06/26/17 at 21:00; Stop 06/28/17 at 21:01 ; Status DC Acetaminophen 100 ml @ As Directed STK-MED ONCE IV ; Start 06/27/17 at 07:04; Stop 06/27/17 at 07:05; Status DC Artificial Tears (Lacrilube Opht Oint) 3.5 applic STK-MED ONCE .ROUTE ; Start at 07:05; Stop 06/27/17 at 07:06; Status DC Lidocaine/ Epinephrine (Xylocaine-Epi 1%-1:100,000 Inj) 30 ml STK-MED ONCE .ROUTE ; Start 06/27/17 at 07:32; Stop 06/27/17 at 07:33; Status DC Thrombin (Thrombin Top Soln) 10,000 units STK-MED ONCE .ROUTE ; Start 06/27/17 at 07:32; Stop 06/27/17 at 07:33; Status DC Gelatin (Gelfoam 100 Top) 1 foam STK-MED ONCE .ROUTE ; Start 06/27/17 at 07:32; Stop 06/27/17 at 07:33; Status DC Bacitracin (Baciguent Oint) 15 applic STK-MED ONCE .ROUTE ; Start 06/27/17 at 07 :32; Stop 06/27/17 at 07:33; Status DC Gentamicin Sulfate (Gentamicin Inj) 240 mg STK-MED ONCE .ROUTE ; Start 06/27/17 at 07:33; Stop 06/27/17 at 07:34; Status DC Albuterol Sulfate (Albuterol Neb) 2.5 mg Q2HR NEB PRN NEB dyspnea Last administered on 07/11/17at 19:52; Start 06/27/17 at 09:15 Labetalol HCl (Trandate Inj) 10 mg Q1HR PRN IV PUSH SBP>160, DBP>90, HR>65 Last administered on 07/10/17at 18:07; Start 06/27/17 at 09:15 Polyethylene Glycol (Miralax) 17 gm ONCE ONCE PO ; Start 06/27/17 at 09:15; Stop 06/27/17 at 09:19; Status DC Polyethylene Glycol (Miralax) 17 gm DAILY PO Last administered on 06/28/17at 08: 31; Start 06/28/17 at 09:00; Stop 06/28/17 at 15:18; Status DC Glycerin (Glycerin Adult Supp) 2 gm ONCE ONCE RECTAL ; Start 06/27/17 at 09:15 ; Stop 06/27/17 at 09:20; Status DC Sodium Chloride (Sodium Chloride) 1 gm ONCE ONCE PO ; Start 06/27/17 at 09:45; Stop 06/27/17 at 10:35; Status DC Propofol (Diprivan 500 Mg/ 50 ml Inj) 100 mg ONCE ONCE IV Last administered on 06/27/17at 11:10; Start 06/27/17 at 11:00; Stop 06/27/17 at 11:01; Status DC Chlorhexidine Gluconate (Peridex 0.12% Liq) 15 ml BID@08,20 MT ; Start 06/27/17 at 20:00; Status Cancel Propofol 100 ml @ 2.073 mls/ hr TITRATE PRN IV SEDATION Last administered on at 13:54; Start 06/27/17 at 11:00 Fentanyl Citrate 250 ml @ 5 mls/hr TITRATE PRN IV SEDATION Last administered on 07/06/17at 04:21; Start 06/27/17 at 11:00 Lidocaine HCl (Xylocaine 2% Inj) 100 mg ONCE ONCE IV PUSH Last administered on 06/27/17at 13:34; Start 06/27/17 at 11:00; Stop 06/27/17 at 11:01; Status DC Etomidate (Amidate Inj) 40 mg ONCE ONCE IV PUSH Last administered on at 13:34; Start 06/27/17 at 11:00; Stop 06/27/17 at 11:01; Status DC Rocuronium [place] (Zemuron Inj) 100 mg BOLUS ONCE IV Last administered on at 13:35; Start 06/27/17 at 11:30; Stop 06/27/17 at 11:31; Status DC Lidocaine/ Epinephrine (Xylocaine-Epi 1%-1:100,000 Inj) 30 ml STK-MED ONCE .ROUTE ; Start 06/27/17 at 10:50; Stop 06/27/17 at 10:51; Status DC Rocuronium [place] (Zemuron Inj) 100 mg STK-MED ONCE .ROUTE ; Start 06/27/17 at 10:51; Stop 06/27/17 at 10:52; Status DC Artificial Tears (Tears Naturale Opth Soln) 1 drop Q8HR EACH EYE Last administered on 07/17/17at 13:12; Start 06/28/17 at 17:00 Polyethylene Glycol (Miralax) 17 gm BID PO Last administered on 07/15/17at 08:58 ; Start 06/28/17 at 21:00 Lactulose (Lactulose Liq) 30 ml QID PO Last administered on 07/01/17at 13:08; Start 06/28/17 at 18:00; Stop 07/01/17 at 14:12; Status DC Mineral Oil (Kondremul Liq) 30 ml ONCE ONCE PO Last administered on 06/28/17at 16:54; Start 06/28/17 at 17:00; Stop 06/28/17 at 17:01; Status DC Glycerin (Glycerin Adult Supp) 2 gm ONCE ONCE RECTAL Last administered on 06/28at 16:54; Start 06/28/17 at 17:00; Stop 06/28/17 at 17:01; Status DC Methylnaltrexone [place] (Relistor Inj) 12 mg ONCE ONCE SQ Last administered on 06/28/17at 17:20; Start 06/28/17 at 17:00; Stop 06/28/17 at 17:01; Status DC Metoclopramide HCl (Reglan Inj) 5 mg Q8HR IV PUSH Last administered on at 13:12; Start 06/29/17 at 22:00 Methylnaltrexone [place] (Relistor Inj) 12 mg ONCE ONCE SQ Last administered on 06/29/17at 17:14; Start 06/29/17 at 15:15; Stop 06/29/17 at 15:30; Status DC Docusate Sodium (Colace Liq) 100 mg Q12HR PO Last administered on 07/15/17at 08: 56; Start 06/29/17 at 21:00 Sennosides (Senna Liq) 8.8 mg BID PO Last administered on 07/15/17at 08:57; Start 06/29/17 at 21:00 Mineral Oil (Kondremul Liq) 30 ml ONCE ONCE PO Last administered on 06/29/17at 15:15; Start 06/29/17 at 15:15; Stop 06/29/17 at 15:30; Status DC Glycerin (Glycerin Adult Supp) 2 gm ONCE ONCE RECTAL Last administered on 06/29at 15:15; Start 06/29/17 at 15:15; Stop 06/29/17 at 15:30; Status DC Magnesium Citrate (Citroma Liq) 300 ml ONCE ONCE PO ; Start 06/30/17 at 10:45; Stop 06/30/17 at 10:49; Status DC Mineral Oil (Fleet Mineral Oil Enema) 118 ml ONCE ONCE RECTAL ; Start 06/30/17 at 10:45; Stop 06/30/17 at 10:49; Status DC Mineral Oil (Kondremul Liq) 30 ml ONCE ONCE PO ; Start 06/30/17 at 10:45; Stop 06/30/17 at 10:49; Status DC Sodium Phosphate 30 mmol/Sodium Chloride 260 ml @ 43.333 mls/ hr ONCE ONCE IV ; Start 06/30/17 at 12:00; Stop 06/30/17 at 17:59; Status DC Magnesium Sulfate/ Dextrose 100 ml @ 100 mls/hr Q1H IV Last administered on at 11:45; Start 06/30/17 at 10:45; Stop 06/30/17 at 12:44; Status DC Piperacillin Sod/ Tazobactam Sod 100 ml @ 200 mls/hr Q6H IV Last administered on 07/07/17 09:59; Start 06/30/17 at 11:00; Stop 07/07/17 at 11:00; Status DC Albuterol/ Ipratropium (Duoneb Neb) 1 ampule Q6HR WHILE AWAKE NEB NEB Last administered on 07/05/17 13:13; Start 07/01/17 at 20:00; Stop 07/05/17 at 14:07; Status DC Potassium Chloride (KCl Powder) 20 meq ONCE ONCE PO ; Start 07/02/17 at 22:15; Stop 07/02/17 at 22:16; Status DC Famotidine (Pepcid) 20 mg BID PO Last administered on 07/09/17 09:59; Start 07/03/17 at 21:00; Stop 07/10/17 at 14:29; Status DC Folic Acid (Folate) 1 mg DAILY PO Last administered on 07/17/17at 09:07; Start 07/04/17 at 09:15 Albuterol/ Ipratropium (Duoneb Neb) 1 ampule Q6HR WHILE AWAKE NEB NEB Last administered on 07/06/17 13:06; Start 07/05/17 at 14:00; Stop 07/06/17 at 13:27; Status DC Albuterol/ Ipratropium (Duoneb Neb) 1 ampule Q6HR ALT NEB NEB ; Start 07/06/17 at 19:00; Stop 07/06/17 at 19:00; Status DC Acetaminophen (Tylenol 650 Mg/ 20 ml Liq) 650 mg Q6H PRN PO fever Last administered on 07/08/17at 15:09; Start 07/06/17 at 13:30 Albuterol/ Ipratropium (Duoneb Neb) 1 ampule Q6HR NEB NEB Last administered on 07/10/17at 20:29; Start 07/06/17 at 22:00; Stop 07/10/17 at 21:59; Status DC Midazolam HCl (Versed Inj) 5 mg ONCE ONCE IV PUSH Last administered on at 14:33; Start 07/09/17 at 14:00; Stop 07/09/17 at 14:01; Status DC Rocuronium [place] (Zemuron Inj) 50 mg BOLUS ONCE IV Last administered on at 14:30; Start 07/09/17 at 14:00; Stop 07/09/17 at 14:01; Status DC Fentanyl Citrate (fentaNYL INJ) 200 mcg ONCE ONCE IV PUSH Last administered on 07/09/17at 14:31; Start 07/09/17 at 14:00; Stop 07/09/17 at 14:01; Status DC Norepinephrine Bitartrate 250 ml @ As Directed STK-MED ONCE IV ; Start 07/09/17 at 15:47; Stop 07/09/17 at 15:48; Status DC Levetriacetam 500 mg/Sodium Chloride 105 ml @ 420 mls/hr Q12HR IV Last administered on 07/11/17at 08:35; Start 07/09/17 at 21:30; Stop 07/11/17 at 17:51 ; Status DC Cefazolin Sodium 1000 mg/Sodium Chloride 100 ml @ 200 mls/hr CAN LABELER IV Last administered on 07/10/17at 14:17; Start 07/10/17 at 10:30; Stop 07/12/17 at 20:27 ; Status DC Famotidine (Pepcid) 10 mg BID PO ; Start 07/10/17 at 21:00; Stop 07/10/17 at 21: 00; Status DC Pantoprazole Sodium (Protonix) 20 mg DAILY PO ; Start 07/10/17 at 17:00; Stop at 11:19; Status DC Propofol (Diprivan 200 Mg/20 ml Inj) 200 mg STK-MED ONCE IV ; Start 07/10/17 at 12:00; Stop 07/11/17 at 10:48; Status DC Phenylephrine HCl (Neosynephrine/ NS 1000 Mcg/10ml Syr) 1,000 mcg STK-MED ONCE IV ; Start 07/10/17 at 12:00; Stop 07/11/17 at 10:48; Status DC Famotidine (Pepcid) 10 mg BID PEG Last administered on 07/17/17at 09:07; Start 07/11/17 at 21:00 Levetriacetam (Keppra) 500 mg Q12HR PEG Last administered on 07/17/17at 09:07; Start 07/11/17 at 21:00 Sodium Chloride (Sodium Chloride) 1 gm Q12HR PO Last administered on 07/17/17 09:07; Start 07/12/17 at 13:15 Sodium Chloride 1,000 ml @ 100 mls/hr Q10H IV Last administered on 07/13/17 05:45; Start 07/12/17 at 19:45; Stop 07/13/17 at 17:41; Status DC Cefazolin Sodium/ Dextrose 50 ml @ 150 mls/hr CAN LABELER IV Last administered on 07/13/17at 14:53; Start 07/12/17 at 19:45 Vancomycin HCl 1000 mg/Sodium Chloride 250 ml @ 250 mls/hr CAN LABELER IV ; Start 07/12/17 at 19:45 Chlorhexidine Gluconate (Hibiclens 4% Top Soln) 1 applic HS TOP Last administered on 07/13/17 09:00; Start 07/12/17 at 21:00; Stop 07/13/17 at 21:01 ; Status DC Acetaminophen 100 ml @ As Directed STK-MED ONCE IV ; Start 07/13/17 at 12:10; Stop 07/13/17 at 12:11; Status DC Artificial Tears (Lacrilube Opht Oint) 3.5 applic STK-MED ONCE .ROUTE ; Start at 12:10; Stop 07/13/17 at 12:11; Status DC Lidocaine/ Epinephrine (Xylocaine-Epi 1%-1:100,000 Inj) 30 ml STK-MED ONCE .ROUTE Last administered on 07/13/17 14:50; Start 07/13/17 at 12:58; Stop at 12:59; Status DC Thrombin (Thrombin Top Soln) 5,000 units STK-MED ONCE .ROUTE Last administered on 07/13/17 14:50; Start 07/13/17 at 12:58; Stop 07/13/17 at 12:59; Status DC Gelatin (Gelfoam 100 Top) 1 foam STK-MED ONCE .ROUTE Last administered on 14:50; Start 07/13/17 at 12:58; Stop 07/13/17 at 12:59; Status DC Bacitracin (Baciguent Oint) 15 applic STK-MED ONCE .ROUTE Last administered on 07/13/17 14:50; Start 07/13/17 at 12:58; Stop 07/13/17 at 12:59; Status DC Gentamicin Sulfate (Gentamicin Inj) 240 mg STK-MED ONCE .ROUTE Last administered on 07/13/17at 14:50; Start 07/13/17 at 12:58; Stop 07/13/17 at 12:59 ; Status DC Fentanyl Citrate (fentaNYL INJ) 100 mcg STK-MED ONCE .ROUTE ; Start 07/13/17 at 16:36; Stop 07/13/17 at 16:37; Status DC Potassium Chloride/Sodium Chloride 1,000 ml @ 100 mls/hr Q10H IV Last administered on 07/14/17at 02:47; Start 07/13/17 at 16:38; Stop 07/14/17 at 13:01 ; Status DC Cefazolin Sodium/ Dextrose 50 ml @ 100 mls/hr Q8H IV Last administered on 07/14at 14:00; Start 07/13/17 at 22:00; Stop 07/14/17 at 14:29; Status DC Pantoprazole Sodium (Protonix Inj) 40 mg DAILY IVP Last administered on at 09:07; Start 07/14/17 at 09:00 Acetaminophen/ Hydrocodone Bitart ([place] 10-325 Mg) 1 tab Q4H PRN PO PAIN SCALE 1 TO 5; Start 07/13/17 at 16:45 Acetaminophen/ Hydrocodone Bitart ([place] 10-325 Mg) 2 tab Q4H PRN PO PAIN SCALE 6 TO 10 Last administered on 07/17/17at 06:08; Start 07/13/17 at 16:45 Morphine Sulfate (Morphine Inj) 2 mg Q2H PRN IV PUSH PAIN SCALE 1 TO 6; Start 07/13/17 at 16:45 Morphine Sulfate (Morphine Inj) 4 mg Q2H PRN IV PUSH PAIN SCALE 7 TO 10; Start 07/13/17 at 16:45 Acetaminophen (Tylenol) 650 mg Q4H PRN PO TEMPERATURE > 101.5 F; Start at 16:45 Miscellaneous Information ALL NURSING DEPARTME... UNSCH PRN .XX SEE LABEL COMMENTS; Start 07/13/17 at 16:08; Stop 07/14/17 at 16:07; Status DC Lactated Ringer's 1,000 ml @ As Directed STK-MED ONCE IV ; Start 07/13/17 at 12 :00; Stop 07/16/17 at 12:30; Status DC Lidocaine HCl (Xylocaine-Mpf 1% Inj) 5 ml STK-MED ONCE OTHER ; Start 07/13/17 at 12:00; Stop 07/16/17 at 12:30; Status DC Rocuronium [place] (Zemuron Inj) 50 mg STK-MED ONCE IV PUSH ; Start 07/13/17 at 12:00; Stop 07/16/17 at 12:30; Status DC Neostigmine Methylsulfate (Prostigmine Inj) 5 mg STK-MED ONCE IV PUSH ; Start at 12:00; Stop 07/16/17 at 12:30; Status DC Glycopyrrolate (Robinul Inj) 1 mg STK-MED ONCE IV PUSH ; Start 07/13/17 at 12:00 ; Stop 07/16/17 at 12:30; Status DC Phenylephrine HCl (Neosynephrine/ NS 1000 Mcg/10ml Syr) 1,000 mcg STK-MED ONCE IV ; Start 07/13/17 at 12:00; Stop 07/16/17 at 12:30; Status DC Ephedrine Sulfate (ePHEDrine/NS 25 MG/5 ML SYR) 50 mg STK-MED ONCE IV ; Start at 12:00; Stop 07/16/17 at 12:30; Status DC Dexamethasone Sodium Phosphate (Decadron Inj) 8 mg STK-MED ONCE IV ; Start 07/13 at 12:00; Stop 07/16/17 at 12:30; Status DC Ondansetron HCl (Zofran Inj) 4 mg STK-MED ONCE IV ; Start 07/13/17 at 12:00; Stop 07/16/17 at 12:30; Status DC Propofol (Diprivan 200 Mg/20 ml Inj) 200 mg STK-MED ONCE IV ; Start 07/13/17 at 12:00; Stop 07/16/17 at 12:30; Status DC Hyoscyamine Sulfate (Levsin Liq) 0.125 mg Q4H PRN PO secretions Last administered on 07/17/17at 05:48; Start 07/16/17 at 15:00 A/P Problem List: (1) Hemorrhagic stroke ICD Code: I61.9 - Nontraumatic intracerebral hemorrhage, unspecified Status: Acute (2) Respiratory failure ICD Code: J96.90 - Respiratory failure, unspecified, unspecified whether with hypoxia or hypercapnia (3) Hypertensive urgency ICD Code: I16.0 - Hypertensive urgency Status: Acute (4) Encephalopathy, metabolic ICD Code: G93.41 - Metabolic encephalopathy Status: Acute (5) [place] (acute kidney injury) ICD Code: N17.9 - Acute kidney failure, unspecified Status: Acute Assessment and Plan Neuro/Psych: Right posterior temporal/occipital/parietal intra-axial hematoma Left MCA posterior temporal occipital CVA Right complex partial seizure Wernicke aphasia Acute encephalopathy Following commands. s/p VPS 07/13. Ventriculostomy placed 06/27-neurosurgery managing CT brain 06/25 revealed a right occipital parietal intra-axial hematoma with mild surrounding edema. MRI brain revealed a left MCA CVA involving the left posterior temporal occipital region MRI brain admission revealed right posterior temporal hemorrhage with ventricular extension MRA brain negative for aneurysm CT head 07/10/17: Continued evolution of right occipital hemorrhage, IVH Carotid Dopplers with possible right carotid stenosis. Does not explain acute left MCA CVA. On levetiracetam 500 mg twice daily for seizure. Acetaminophen 650 mg p.o. every 6 hours as needed fever/pain Followed by Dr. Crowell neurology CV: Hypertensive emergency Dyslipidemia Currently on metoprolol 25 mg by mouth twice daily Currently on pravastatin 40 mg daily/on atorvastatin 40 mg daily at home Holding aspirin 81 mg daily in light of acute hemorrhage 06/29 echo - Normal left ventricular size. Mild concentric LVH. The left ventricular systolic function is hyperdynamic with an estimated ejection fraction in the range of 65-70%. Trace TR. The estimated PASP is 43 mmHg. Resp: Acute hypoxic and hypercarbic respiratory failure secondary to aspiration Reintubated secondary to new acute CVA with aspiration. S/p trach 07/09/17 TP as tolerated. Ventilator bundle. Albuterol/ipratropium aerosols every 6 hours alternate nebs with albuterol aerosols every 2 hours as needed dyspnea GI: Hypoalbuminemia Constipation Jevity 1.5 at 50 cc an hour at goal, s/p PEG tube placement Famotidine 20 mg twice daily for GI prophylaxis Docusate sodium/senna 1 tablet twice daily for bowel regimen. Continue polyethylene glycol 17 g twice daily, : no indication for kent catheter. Endo: Sliding scale insulin if indicated to maintain euglycemia Renal: Creatinine currently within normal limits Monitor urine output Accurate I's and O's Heme: Normocytic anemia Monitor CBC daily. Follow trend Hypercoagulable workup ID: Serratia plymithica, MSSA and Klebsiella pneumonia Completed cefazolin 2 g IV every 8 hours day #7 -> done Switch to penicillin/tazobactam day #7 -> done Pertinent cultures 06/30 -sputum -Serratia Plymithica/Klebsiella pneumonia 06/29 -blood cultures 2 -no growth 06/18 -staph aureus/Klebsiella pneumonia sputum 07/12/17 UA and csf culture send FEN: Replace electrolytes as clinically indicated MSK: Osteoarthritis/osteoporosis Holding alendronate 70 mg weekly. Resume clinically indicated Access -Utilize peripheral IV. Prophylaxis -GI -famotidine -DVT -SCD/holding pharmacological prophylaxis in light of cerebral hematoma. Initiate when okay with neurosurgery Overall impression: Stable hemodynamics. Tolerating TP. s/p tracheostomy . Need LTAC PT AND OT AND SPEECH Discharge Planning WILL NEED LTAC OR [facility] [place] Problem Qualifiers (1) Respiratory failure: Qualified Codes: J96.00 - Acute respiratory failure, unspecified whether with hypoxia or hypercapnia Seun Pop DO Jul 17, 2017 14:01
--- NOTE | 2017-07-17 14:25 | HHI.PR ---
Subjective Remarks On trach collar O2 sats improved Less secretions per nurse at bedside Objective Vital Signs Vital Signs Date Time Temp Pulse Resp B/P (MAP) Pulse Ox O2 Delivery O2 Flow Rate FiO2 07/17/17 12:00 97.6 66 21 127/57 (80) 96 07/17/17 12:00 66 07/17/17 10:00 72 07/17/17 09:06 97 T-piece 28 07/17/17 08:00 77 07/17/17 08:00 97.9 76 22 116/57 (76) 97 07/17/17 07:08 21 07/17/17 07:00 97 T-Piece 8.00 28 07/17/17 06:10 77 07/17/17 05:50 100 T-piece 6.00 28 07/17/17 04:08 75 07/17/17 04:08 99.1 75 21 115/54 (74) 100 07/17/17 02:10 79 07/17/17 00:38 78 25 157/68 (97) 100 07/17/17 00:37 78 07/16/17 22:13 87 07/16/17 20:48 98.9 85 29 135/65 (88) 100 07/16/17 20:47 100 T-piece 6.00 50 07/16/17 20:46 85 07/16/17 19:41 98 Trach Collar 8.00 100 07/16/17 18:00 84 07/16/17 16:00 78 07/16/17 16:00 99.1 78 20 134/74 (94) 100 I/O 07/16/17 07/16/17 07/16/17 07/17/17 07/17/17 07/17/17 07:00 15:00 23:00 07:00 15:00 23:00 Intake Total 577 ml 627 ml 720 ml Output Total 400 ml 150 ml 800 ml Balance 177 ml 477 ml -80 ml Intake Oral 0 ml IV Total 20 ml Tube Feeding 537 ml 567 ml 520 ml Tube Irrigant 20 ml 60 ml 200 ml Output Urine Total 400 ml 150 ml 800 ml # Voids 1 2 1 # Bowel Movements 0 1 1 Gen: NAD Trach in place, on t piece Lungs: rhonchi Heart: S1, S2 Abd: soft Ext: no sig edema Neuro: no sig change Result Diagram: 07/17/1744107/17/17441 A/P Assessment and Plan S/p Right ICH Hypertensive urgency S/p tracheostomy Increased tracheal secretions rule out tracheitis S/p chronic respiratory failure Cont current tx Trach care Cont on t piece as tolerated Wean supplemental o2 to keep sats > 89% Sputum cx with gram stain F/u CXR If secretions become thicker with levsin may need to hold rx Addis James Jul 17, 2017 14:24
--- NOTE | 2017-07-17 15:03 | RADRPT ---
EXAM DATE/TIME: 07/17/2017 14:31 [facility] COMPARISON: CHEST SINGLE AP, July 13, 2017, 3:37. INDICATIONS : Short of breath. MEDICAL HISTORY : Cerebrovascular disease. Stroke. Hypertension. SURGICAL HISTORY : Ventriculostomy. ENCOUNTER: Subsequent ACUITY: 4 - 6 days PAIN SCORE: Non-responsive. LOCATION: Bilateral chest FINDINGS: A single view of the chest demonstrates an interstitial densities left lower lobe. Heart mildly enlar ged. Tracheostomy tube unchanged. Catheter overlies the right chest likely [employer] shunt. The cardiomedia stinal contours are unremarkable. Osseous structures are intact. CONCLUSION: Interstitial densities left lower lobe, likely chronic. Eldon Duggan MD on July 17, 2017 at 15:00 Board Certified Radiologist. This report was verified electronically.
[2017-07-17] MEDS ORDERED: SODI1TAB PO (15:33)
[2017-07-17] MEDS ORDERED: ACET650S PO (15:33)
[2017-07-17] MEDS ORDERED: FOLI1TAB6 PO (15:33)
[2017-07-17] MEDS ORDERED: POLY17S PO (15:33)
[2017-07-17] MEDS ORDERED: Albuterol Neb NEB (15:33)
[2017-07-17] MEDS ORDERED: POLY99.0 EACH EYE (15:33)
[2017-07-17] MEDS ORDERED: ACET325T15 PO (15:33)
[2017-07-17] MEDS ORDERED: PANT40P IVP (15:33)
[2017-07-17] MEDS ORDERED: SENNSYP PO (15:33)
[2017-07-17] MEDS ORDERED: Lactulose Liq PO (15:33)
[2017-07-17] MEDS ORDERED: HYOS0.1231 PO (15:33)
[2017-07-17] MEDS ORDERED: HYDR-3583 PO (15:33)
[2017-07-17] MEDS ORDERED: LEVE500 PEG (15:33)
[2017-07-17] MEDS ORDERED: FAMO20TA2 PEG (15:33)
--- NOTE | 2017-07-17 15:35 | HHI.DS ---
Discharge Summary Admission Date Jun 15, 2017 at 06:17 Discharge Date: Jul 17, 2017 Admitting Diagnosis Parenchymal Brain Hemorrhage (1) Hemorrhagic stroke ICD Code: I61.9 - Nontraumatic intracerebral hemorrhage, unspecified Diagnosis: Principal Status: Acute (2) Respiratory failure ICD Code: J96.90 - Respiratory failure, unspecified, unspecified whether with hypoxia or hypercapnia Diagnosis: Principal (3) Hypertensive urgency ICD Code: I16.0 - Hypertensive urgency Diagnosis: Principal Status: Acute (4) Encephalopathy, metabolic ICD Code: G93.41 - Metabolic encephalopathy Diagnosis: Principal Status: Acute (5) [place] (acute kidney injury) ICD Code: N17.9 - Acute kidney failure, unspecified Diagnosis: Secondary Status: Acute (6) Acute ischemic left MCA stroke ICD Code: I63.512 - Cerebral infarction due to unspecified occlusion or stenosis of left middle cerebral artery Diagnosis: Principal Status: Acute (7) Intracranial hemorrhage ICD Code: I62.9 - Nontraumatic intracranial hemorrhage, unspecified Diagnosis: Principal Status: Acute (8) Altered mental state ICD Code: R41.82 - Altered mental status, unspecified Diagnosis: Principal Status: Acute Procedures ADVANCE AGENT shunt Tracheostomy PEG tube Brief History - From Admission Severely dehydrated, elderly woman presents confused to [facility] ED with hypertensive urgency and semi-acute right hemispheric parenchymal brain hemorrhage. Arrived from [facility] on cardene gtt and aphasic. Handness not determined yet. Unable to get ROS. No anticoagulants. INR normal. CBC/BMP: 07/17/17 0442 07/17/17 0442 Significant Findings Laboratory Tests Test 07/16/17 07:54 07/17/17 04:42 White Blood Count 13.5 TH/MM3 (4.0-11.0) 12.5 TH/MM3 (4.0-11.0) Red Blood Count 2.77 MIL/MM3 (4.00-5.30) 2.36 MIL/MM3 (4.00-5.30) Hemoglobin 8.4 GM/DL (11.6-15.3) 7.2 GM/DL (11.6-15.3) Hematocrit 24.8 % (35.0-46.0) 21.1 % (35.0-46.0) Neutrophils (%) (Auto) 74.5 % (16.0-70.0) 75.7 % (16.0-70.0) Monocytes (%) (Auto) 11.4 % (0.0-8.0) 8.6 % (0.0-8.0) Neutrophils # (Auto) 10.1 TH/MM3 (1.8-7.7) 9.5 TH/MM3 (1.8-7.7) Monocytes # (Auto) 1.5 TH/MM3 (0-0.9) 1.1 TH/MM3 (0-0.9) Random Glucose 133 MG/DL (74-106) 145 MG/DL (74-106) Albumin 1.9 GM/DL (3.4-5.0) 1.7 GM/DL (3.4-5.0) Alkaline Phosphatase 202 U/L (45-117) 169 U/L (45-117) Aspartate Amino Transf (AST/SGOT) 67 U/L (15-37) 39 U/L (15-37) Free Thyroxine 1.78 NG/DL (0.76-1.46) 1.75 NG/DL (0.76-1.46) Thyroid Stimulating Hormone 3rd Gen 0.197 uIU/ML (0.358-3.740) 0.135 uIU/ML (0.358-3.740) Blood Urea Nitrogen 20 MG/DL (7-18) Total Protein 6.3 GM/DL (6.4-8.2) Calcium Level 8.2 MG/DL (8.5-10.1) Estimat Glomerular Filtration Rate 86 ML/MIN (>89) Imaging Last Impressions Chest X-Ray 07/17/17 0000 Signed Impressions: Service Date/Time: Monday, July 17, 2017 14:31 - CONCLUSION: Interstitial densities left lower lobe, likely chronic. Eldon Duggan MD Head CT 07/14/17 0000 Signed Impressions: Service Date/Time: Friday, July 14, 2017 04:39 - CONCLUSION: 1. Postsurgical changes as above. no acute hemorrhage is identified. Elijah Cortez MD Abdomen X-Ray 07/01/17 0600 Signed Impressions: Service Date/Time: Saturday, July 01, 2017 04:18 - CONCLUSION: 1. Nonspecific bowel gas pattern without evidence for obstruction or free air. Ivan Bahena MD Carotid Artery Ultrasound 06/27/17 0000 Signed Impressions: Service Date/Time: Tuesday, June 27, 2017 12:59 - CONCLUSION: 1. Moderate diffuse atherosclerotic plaquing at both carotid bifurcations. 2. Mild elevated velocity in the proximal right internal carotid artery. If clinically indicated , recommend CTA of the carotid arteries for further evaluation. 3. No definite high grade or hemodynamically significant stenosis is demonstrated. David Moore MD Brain MRI 06/27/17 0000 Signed Impressions: Service Date/Time: Tuesday, June 27, 2017 09:23 - CONCLUSION: 1. New development of a nonhemorrhagic acute infarct involving the left occipital lobe. 2. Otherwise, the rest of the exam is stable compared to the prior MRI. David Moore MD Head Magnetic Resonance Angiography 06/15/17 0000 Signed Impressions: Service Date/Time: Thursday, June 15, 2017 11:52 - CONCLUSION: MRA within normal limits. There is a parenchymal hemorrhage in the posterior right temporal lobe with intraventricular extension. Ivan Bahena MD PE at Discharge GENERAL: Awake alert follows RANDOM commands at this time right-sided ADVANCE AGENT shunt - INCONSISTENTLY FOLLOWS COMMANDS SKIN: Warm and dry. HEAD: Atraumatic. Normocephalic. Right-sided ADVANCE AGENT shunt EYES: Pupils equal and round. No scleral icterus. No injection or drainage. Not able to assess extraocular muscles ENT: No nasal bleeding or discharge. Mucous membranes pink and moist. Will not stick out her tongue therefore cannot assess any deviation NECK: Trachea midline. No JVD. Supple tracheostomy tube in place CARDIOVASCULAR: Regular rate and rhythm. S1-S2 no S3 or S4 RESPIRATORY: No accessory muscle use. Breath sounds equal bilaterally. Coarse breath sounds bilaterally GASTROINTESTINAL: Abdomen soft, non-tender, nondistended. Hepatic and splenic margins not palpable. PEG tube in place MUSCULOSKELETAL: Extremities without clubbing, cyanosis, or edema. No obvious deformities. Generalized weakness NEUROLOGICAL: Awake and alert. No obvious cranial nerve deficits. Motor grossly ABnormal. 3 out of 5 muscle strength in the arms and legs. ABNormal speech. PSYCHIATRIC: INAppropriate mood and affect; insight and judgment ABnormal. Nonverbal and follows no commands Hospital Course Severely dehydrated, elderly woman presents confused to [facility] ED with hypertensive urgency and semi-acute right hemispheric parenchymal brain hemorrhage. Arrived from [facility] on cardene gtt and aphasic. Handness not determined yet. Unable to get ROS. No anticoagulants. INR normal. 06/16: Flaccid left side. Minimal eye opening. Moves right arm and leg to stimulation. Breathes over vent. ICP control, EVD draining well. 06/17: Moving both arms, right much stronger. More alert but episodic apnea spells. 06/18: No events over the night. Patient remains intubated, off sedation. She is currently on pressure support, 01/04, doing well. Awake, following commands. Son present at bedside. T-max of 99.6. I/O 250/1545. 06/19: No events over the night. Patient did well yesterday on pressure support , but was not able to be extubated secondary to no cuff leak. She remains on Cardene currently at 9.5 mg/h. Afebrile with a T-max of 99.4. Negative fluid balance. 06/20: Patient did well over the night. T-max of 100.2. ICP of 4. Thick sputum secretions sent yesterday for culture now growing Staphylococcus. Patient is awake, off sedation following some commands. Off Cardene drip since yesterday. 06/21: Patient did well postextubation and over the night. T-max of 100 yesterday morning. Very good urine output. Patient awake following commands, denying any pain. 06/22: No events over the night. Patient doing well. She is awake and alert, denies headache, nausea, vomiting. No chest pain, no dyspnea, no palpitations. On 2 L nasal cannula. Afebrile over the last 24 hours. Diuresed well post Lasix and she is on negative fluid balance since admission. 06/23: Patient awake, feels better, denies chest pain, shortness of breath, palpitations, headache. Still has productive cough. Afebrile, urine output is adequate. 06/24: No events over the night. Patient afebrile over the last 24 hours. She remains awake, resting in bed, denies any complaints. Sons at bedside. 06/25: Resting comfortably. Drowsy, arousable. EVD at 15cm, drained 60 cc overnight. 06/26: Resting comfortably. Awake and alert. EVD in place drain 10 cc overnight however has some clear fluid draining around ventriculostomy site. Dr. Nixon planning ADVANCE AGENT shunt for tomorrow. 06/27: Afebrile. Less arousable today. Eyes are closed. Subjective left-sided weakness. EVD in place at 20 cm. 4 cc overnight. On cefazolin with clear fluid draining from ventriculostomy site. MRI brain currently pending. 06/28: Afebrile. Intubated yesterday secondary to altered mental status/ aspiration. Arousable and follows commands in the ventilator. 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 Echocardiogram pending. Possibly some right carotid stenosis on carotid ultrasound which does not correlate to this current acute left MCA CVA 06/29: Afebrile. More arousable today. Spontaneously moving left upper extremity. Opens eyes to voice. Not following commands. Tolerating tube feeds at goal. 06/30: Resting in bed in no acute distress. More arousable today. Spontaneously moving left upper extremity. Opens eyes to voice. No bowel movement 07/01: T-max 99.8. Currently 99.3. Opens eyes to voice. Squeezes bilateral hands right greater than left. Not following commands however. Tolerating spontaneous breathing trial 07/02: T-max 100.1. Currently afebrile. Did not tolerate CPAP trial today. Slightly more responsive today briefly follow commands right greater than left. Tolerating tube feeding. 07/03: Tolerating CPAP trial today. T-max 100.1. Currently 98.5. 2 bowel movements. More arousable and alert today 07/04: on PSV 01/04/40%. more awake today. follows commands. 07/05: continues to be more awake and alert, but also continues to fail CPAP trials. becomes tachypneic and distress. 07/06: Afebrile. Arousable and follows commands. Neurologically stable. Tolerating tube feeding. On PSV trial since 1050 but currently going to back up mode secondary to apnea. 07/07: Will trial SBTs daily, watch for apnea periods. 07/08: Fentanyl off and she is a little more active today. She may be blind. Unable to extubate today. 07/09: Remains intubated off sedation, ischial spontaneously open moves extremities spontaneously but intermittently. Do not follow commands. Too weak to protect airway successfully. Vent day will need trach and PEG, Dr. Nixon agrees. Will discuss with son. 07/10: Patient underwent percutaneous tracheostomy yesterday tolerated well. EVD raised to 20 yesterday tolerating well. GI consulted for PEG placement. Start weaning trials 07/11: Tolerating T piece, sleepy but wakes up easily following commands today bilateral upper and lower extremities. EVD remains clamped, CT from yesterday persistent hydrocephalus unchanged on my review 07/12: Patient remains on T piece since a.m., slightly more lethargic today but wakes up easily and follows commands. Per neurosurgery plan reopened EV drain today to 5 cm H20, if mentation improves and for ADVANCE AGENT shunt tomorrow. Also check UA, CBC CMP and chest x-ray. CSF Gram stain and culture sent. NACL tab started 07/13: s/p ADVANCE AGENT shunt today. doing well on t-piece. somnolent from anesthesia. 07/14: continues to do well on t-piece. no complaints. no changes to neuro exam. 07/15: remains on t-piece. neuro exam stable. - TRANSFERRED TO OUR SERVICE TODAY STILL HAVING LOTS OF SECRETIONS TRY LEVSIN ON 100% OXYGEN NOW WILL KEEP IN ICU AT THIS TIME DW RN PATIENT NON VERBAL FOLLOWING NO COMMANDS - NOT FOLLOWING COMMANDS WELL LOTS OF SECRETIONS DW PATIENT AND AD TAKER TO [facility] TODAY FOR AGGRESSIVE PT AND OT AND ST DW THERAPY-SHE STATES PATIENT NOT FOLLOWING COMMANDS FOR HER EITHER Pt Condition on Discharge: Fair Discharge Disposition: Trnsfr to Other Facility Discharge Time: > 30 minutes Discharge Instructions DIET: Follow Instructions for: On Tube Feeding Activities you can perform: Weight Bearing as Naida Follow up Referrals: Neurosurgery - 2 Weeks with Andre Nixon MD Pulmonology - Daily with Maximino Katz MD New Medications: Acetaminophen (Eq Acetaminophen) 325 Mg Tab 650 MG PO Q4H PRN for TEMPERATURE > 101.5 F, #60 TAB Acetaminophen (Acetaminophen) 650 Mg/20.3 Ml Solution 650 MG PO Q6H PRN for fever, #60 TAB Famotidine (Famotidine) 20 Mg Tab 10 MG PEG BID for Heartburn Management, #60 TAB Folic Acid (Folic Acid) 1 Mg Tablet 1 MG PO DAILY for Nutritional Supplement, #30 TAB Hydrocodone/Acetaminophen (Hydrocodone-Acetamin 10-325 mg) 10 Mg-325 Mg Tablet 2 TAB PO Q4H PRN for PAIN SCALE 6 TO 10, #60 TAB Hydrocodone/Acetaminophen (Hydrocodone-Acetamin 10-325 mg) 10 Mg-325 Mg Tablet 1 TAB PO Q4H PRN for PAIN SCALE 1 TO 5, #60 TAB Hyoscyamine Liq Drops (Hyosyne Liq Drops) 0.125 Mg/Ml Soln 0.125 MG PO Q4H PRN for secretions, #180 ML Levetiracetam (Keppra) 500 Mg Tab 500 MG PEG Q12HR for Seizure Control, #60 TAB Pantoprazole Inj (Protonix Inj) 40 Mg Inj 40 MG IVP DAILY for Heartburn Management, #30 INJECTION Polyethylene Glycol 3350 Powder (Polyethylene Glycol 3350 Powder) 17 Gram Pow 17 GM PO BID for Bowel Management, #600 GM Polyvinyl Alcohol Opth Drops (Artificial Tears Opth Drops) 1.4% Soln 1 DROP EACH EYE Q8HR for Dry Eye, #15 ML Senna Liq (Senna Liq) 176 Mg/5 Ml Syp 8.8 MG PO BID for Constipation, #600 MG Sodium Chloride (Sodium Chloride) 1 Gram Tab 1 GM PO Q12HR for Nutritional Supplement, #60 TAB [Albuterol Neb] () 2.5 MG/3 ML NEBU 2.5 MG NEB Q2HR NEB PRN for dyspnea, #180 AMPULE [Lactulose Liq] () 30 ML SYRP 30 ML PO DAILY PRN for SEVERE CONSITIPATION, #1 LITER Continued Medications: Alendronate (Alendronate) 70 Mg Tab 70 MG PO Q7D for Osteporosis Treatment, #12 TAB 1 Refill Simvastatin (Simvastatin) 40 Mg Tab 40 MG PO HS for Cholesterol Management, #90 TAB 1 Refill Discontinued Medications: Aspirin (Aspirin Low Dose) 81 Mg Chew 81 MG CHEW DAILY, TAB 0 Refills Seun Pop DO Jul 17, 2017 15:35
[2017-07-17] MEDS: PRAVASTATIN SOD 40 MG TAB PO SCH (19:48)
== END 2017-07-17 20:25 | DRG 3 ==
LOC: PHED 05:09 → PHEDA 06:17 → N03B 07:30
PROVIDERS: ADMIT Hospitalist; ATTEND Hospitalist
PROC: 009630Z Drainage of Cerebral Ventricle with Drainage Device, Percutaneous Approach (ICD-10-PCS; principal; 2017-06-15)
PROC: 5A1955Z Respiratory Ventilation, Greater than 96 Consecutive Hours (ICD-10-PCS; 2017-06-15)
PROC: 0BH17EZ Insertion of Endotracheal Airway into Trachea, Via Natural or Artificial Opening (ICD-10-PCS; 2017-06-15)
PROC: 0BH17EZ Insertion of Endotracheal Airway into Trachea, Via Natural or Artificial Opening (ICD-10-PCS; 2017-06-15)
PROC: 009630Z Drainage of Cerebral Ventricle with Drainage Device, Percutaneous Approach (ICD-10-PCS; 2017-06-27)
PROC: 0BH17EZ Insertion of Endotracheal Airway into Trachea, Via Natural or Artificial Opening (ICD-10-PCS; 2017-06-27)
PROC: 5A1955Z Respiratory Ventilation, Greater than 96 Consecutive Hours (ICD-10-PCS; 2017-06-27)
PROC: 0B113F4 Bypass Trachea to Cutaneous with Tracheostomy Device, Percutaneous Approach (ICD-10-PCS; 2017-07-09)
PROC: 0BJ08ZZ Inspection of Tracheobronchial Tree, Via Natural or Artificial Opening Endoscopic (ICD-10-PCS; 2017-07-09)
PROC: 0DH63UZ Insertion of Feeding Device into Stomach, Percutaneous Approach (ICD-10-PCS; 2017-07-10)
PROC: 0DB78ZX Excision of Stomach, Pylorus, Via Natural or Artificial Opening Endoscopic, Diagnostic (ICD-10-PCS; 2017-07-10)
PROC: 00160J6 Bypass Cerebral Ventricle to Peritoneal Cavity with Synthetic Substitute, Open Approach (ICD-10-PCS; 2017-07-13)
DX: I60.9 Nontraumatic subarachnoid hemorrhage, unspecified (principal); I63.512 Cerebral infarction due to unspecified occlusion or stenosis of left middle cerebral artery; G93.6 Cerebral edema; J15.0 Pneumonia due to Klebsiella pneumoniae; G93.41 Metabolic encephalopathy; N17.9 Acute kidney failure, unspecified; J96.21 Acute and chronic respiratory failure with hypoxia; R13.10 Dysphagia, unspecified; E86.0 Dehydration; J96.22 Acute and chronic respiratory failure with hypercapnia; G91.9 Hydrocephalus, unspecified; E87.0 Hyperosmolality and hypernatremia; G40.209 Localization-related (focal) (partial) symptomatic epilepsy and epileptic syndromes with complex partial seizures, not intractable, without status epilepticus; G81.94 Hemiplegia, unspecified affecting left nondominant side; R47.01 Aphasia; M62.82 Rhabdomyolysis; I16.1 Hypertensive emergency; T85.0 Mechanical complication of ventricular intracranial (communicating) shunt; E87.1 Hypo-osmolality and hyponatremia; I10 Essential (primary) hypertension; R40.2412 Glasgow coma scale score 13-15, at arrival to emergency department; E78.5 Hyperlipidemia, unspecified; I61.5 Nontraumatic intracerebral hemorrhage, intraventricular; Y83.8 Other surgical procedures as the cause of abnormal reaction of the patient, or of later complication, without mention of misadventure at the time of the procedure; K29.70 Gastritis, unspecified, without bleeding; K25.9 Gastric ulcer, unspecified as acute or chronic, without hemorrhage or perforation; M81.0 Age-related osteoporosis without current pathological fracture; I61.1 Nontraumatic intracerebral hemorrhage in hemisphere, cortical; I65.21 Occlusion and stenosis of right carotid artery; D64.9 Anemia, unspecified; E83.39 Other disorders of phosphorus metabolism; E88.09 Other disorders of plasma-protein metabolism, not elsewhere classified; K59.00 Constipation, unspecified; M19.90 Unspecified osteoarthritis, unspecified site; Z79.82 Long term (current) use of aspirin; Z86.73 Personal history of transient ischemic attack (TIA), and cerebral infarction without residual deficits
CPT/HCPCS: 31500; 31600; 31624; 36600; 51702; 61210; 70450; 70544; 70551; 71045; 74018; 80048; 80053; 80061; 80076; 80202; 80307; 81001; 81240; 81241; 81291; 82140; 82150; 82550; 82552; 82805; 82945; 83036; 83090; 83605; 83690; 83735; 84100; 84157; 84439; 84443; 84484; 85007; 85025; 85027; 85240; 85300; 85303; 85306; 85307; 85610; 85613; 85652; 85730; 86038; 86140; 86146; 86147; 86148; 86403; 87040; 87070; 87077; 87086; 87147; 87186; 87205; 87641; 88305; 88312; 89051; 93005; 93306; 93880; 94002; 94003; 94150; 94640; 94664; 95819; 96374; A7521; C9113; J0131; J0360; J0690; J1100; J1580; J1940; J1953; J2212; J2250; J2270; J2370; J2405; J2543; J2710; J2765; J3010; J3370; J3475; J3480; J7030; J7050; J7120; J7613